=== PATIENT | male | born 1940 | race Caucasian/White ===

== ENCOUNTER → 2017-08-19 08:52 | Outpatient (POV) | payer MEDICARE, OTHER, SELFPAY | PROVIDERS: Visit Provider Dermatology | DX: Z00.00 Encounter for general adult medical examination without abnormal findings (principal) ==

== ENCOUNTER → 2017-10-21 08:34 | Outpatient (POV) | payer MEDICARE, OTHER, SELFPAY | PROVIDERS: Visit Provider Dermatology | DX: Z00.00 Encounter for general adult medical examination without abnormal findings (principal) ==

== ENCOUNTER → 2018-06-06 10:07 | Outpatient (CLI) | payer MEDICARE, OTHER, SELFPAY ==
--- NOTE | 2018-06-06 10:16 | XR_ITS ---
XR chest 2V HISTORY: Cough. Irregular heartbeat. ITS.REASON: COUGH,IRREGULAR HEART BEAT ORDERING PHYSICIAN: Shahid Guthrie PATIENT AGE: 77 years Technique: PA & lateral chest COMPARISON: January 2011. FINDINGS: Lungs well expanded and clear with no active disease.. Christal and mediastinal structures unremarkable. minimal linear scarring and atelectasis toward right CP angle is noted but unimpressive. Heart Is upper normal in size pulmonary vascularity is upper normal. Chest wall T-spine unremarkable. IMPRESSION and lungs clear nothing definitely acute.
== END ==
PROVIDERS: PCP Internal Medicine; Visit Provider Internal Medicine
DX: I49.9 Cardiac arrhythmia, unspecified (principal); R05 Cough; I10 Essential (primary) hypertension
CPT/HCPCS: 71046; 93005

== ENCOUNTER → 2018-11-01 09:22 | Outpatient (POV) | payer MEDICARE, OTHER, SELFPAY | PROVIDERS: Visit Provider Dermatology | DX: Z00.00 Encounter for general adult medical examination without abnormal findings (principal) ==

== ENCOUNTER → 2019-01-17 08:58 | Outpatient (POV) | payer MEDICARE, OTHER, SELFPAY | PROVIDERS: Visit Provider Dermatology | DX: Z00.00 Encounter for general adult medical examination without abnormal findings (principal) ==

== ENCOUNTER → 2019-06-12 15:23 | Outpatient (CLI) | payer MEDICARE, BC, SELFPAY ==
--- NOTE | 2019-06-12 15:37 | MR_ITS ---
PROCEDURE: MR HEAD/BRAIN WO CON CLINICAL INDICATION: BALANCE ISSUES, HEADACHE Headache, staggering imbalance, evaluate COMPARISON: No exams were available for comparison TECHNIQUE: Routine multiplanar multi echo sequences are performed without gadolinium enhancement. FINDINGS: No midline shift, mass effect, intracranial hemorrhage, or hydrocephalus. No evidence of acute infarction. The cerebellopontine angles, cerebellum, and brainstem are unremarkable. There is a prominent cisterna magna as a normal variant. There are a few periventricular and subcortical T2 white matter hyperintensities consistent with ischemic gliotic foci from small vessel disease. Partial empty sella noted as a normal variant. The optic chiasm, corpus callosum, and craniocervical junction have an unremarkable appearance. IMPRESSION: 1. No acute intracranial findings. No evidence of acute infarction. 2. Prominent cisterna magna and partial empty sella as a normal variant Dictated by: Fadi Calvo MD 06/12/2019 19:20 Electronically signed by Fadi Calvo MD in [place] 06/12/2019 19:20
== END ==
PROVIDERS: PCP Internal Medicine; Visit Provider Internal Medicine
DX: R51 Headache (principal); R26.81 Unsteadiness on feet
CPT/HCPCS: 70551

== ENCOUNTER → 2020-03-05 10:16 | Outpatient (POV) | payer MEDICARE, BC, SELFPAY | PROVIDERS: Visit Provider Dermatology | DX: Z00.00 Encounter for general adult medical examination without abnormal findings (principal) ==

== ENCOUNTER → 2021-05-22 09:07 | Outpatient (CLI) | payer MEDICARE, BC, SELFPAY ==
[2021-05-22 09:27] LABS: Basophils # 0.1 K/mm3 (0-0.2); Basophils % 1.2 % (0.1-2.0); Eosinophils # 0.3 K/mm3 (0.0-0.4); Hematocrit 49.7 % (42.0-52.0); Hemoglobin 16.4 g/dL (14.1-18.0); Lymphocytes # 1.9 K/mm3 (0.7-4.5); Lymphocytes % 22.7 % (10-50); Mean Corpuscular HGB Conc 32.9 g/dL (31.8-35.4); Mean Corpuscular Hemoglobin 31.4 pg (27.0-31.2); Mean Corpuscular Volume 95.4 fl (80-94); Mean Platelet Volume 7.8 fl (7.4-10.4); Monocytes # 0.8 K/mm3 (0.1-1.0); Neutrophils # 5.1 K/mm3 (1.8-7.8); Neutrophils % 62.1 % (37.0-80.0); Platelet Count 317 K/mm3 (142-424); Red Blood Count 5.21 M/mm3 (4.60-6.20); Red Cell Distribution Width 15.5 % (11.5-17.5); White Blood Count 8.3 K/mm3 (4.8-10.8)
[2021-05-22 09:57] LABS: Erythrocyte Sedimentation Rate 6 mm/hr (0-20)
[2021-05-22 10:27] LABS: Alanine Aminotransferase 43 U/L (12-78); Albumin Level 4.3 g/dl (3.5-5.0); Albumin/Globulin Ratio 1.6 (1.1-1.8); Alkaline Phosphatase 74 U/L (38-126); Aspartate Amino Transferase 36 U/L (17-59); Bilirubin,Total 0.3 mg/dl (0.2-1.3); Blood Urea Nitrogen 12 mg/dl (9-20); Calcium 8.9 mg/dl (8.4-10.2); Carbon Dioxide 31 mmol/L (22.0-30.0); Chloride 101 mmol/L (98-107); Estimated Glomerular Filt Rate 130 ml/min (>60); GFR (African American) 158 ML/MIN (>60); Globulin 2.7 g/dL (1.3-3.2); Glucose 131 mg/dl (74-100); Sodium 140 mmol/L (136-145)
[2021-05-22 10:33] LABS: C-Reactive Protein 5.3 mg/L (0-4)
== END ==
PROVIDERS: Visit Provider Nurse Practitioner Family
DX: M05.79 Rheumatoid arthritis with rheumatoid factor of multiple sites without organ or systems involvement (principal); E11.9 Type 2 diabetes mellitus without complications; Z79.1 Long term (current) use of non-steroidal anti-inflammatories (NSAID); Z79.899 Other long term (current) drug therapy
CPT/HCPCS: 36415; 80053; 85025; 85651; 86140

== ENCOUNTER → 2021-07-15 15:53 | Outpatient (POV) | payer MEDICARE, BC, SELFPAY | PROVIDERS: Visit Provider Dermatology | DX: Z00.00 Encounter for general adult medical examination without abnormal findings (principal) ==

== ENCOUNTER → 2021-07-23 13:08 | Outpatient (CLI) | payer MEDICARE, BC, SELFPAY ==
[2021-07-23 13:33] LABS: Basophils # 0.1 K/mm3 (0-0.2); Basophils % 1.1 % (0.1-2.0); Eosinophils # 0.2 K/mm3 (0.0-0.4); Eosinophils % 2.6 % (0.1-12.0); Hematocrit 50.5 % (42.0-52.0); Hemoglobin 16.3 g/dL (14.1-18.0); Lymphocytes # 1.6 K/mm3 (0.7-4.5); Lymphocytes % 17.1 % (10-50); Mean Corpuscular HGB Conc 32.2 g/dL (31.8-35.4); Mean Corpuscular Hemoglobin 30.8 pg (27.0-31.2); Mean Corpuscular Volume 95.7 fl (80-94); Mean Platelet Volume 8.1 fl (7.4-10.4); Monocytes # 0.8 K/mm3 (0.1-1.0); Monocytes % 8.3 % (1.7-9.3); Neutrophils # 6.5 K/mm3 (1.8-7.8); Neutrophils % 70.9 % (37.0-80.0); Platelet Count 415 K/mm3 (142-424); Red Blood Count 5.28 M/mm3 (4.60-6.20); Red Cell Distribution Width 15.8 % (11.5-17.5); White Blood Count 9.1 K/mm3 (4.8-10.8)
[2021-07-23 14:07] LABS: Erythrocyte Sedimentation Rate 7 mm/hr (0-20)
[2021-07-23 14:26] LABS: Chloride 104 mmol/L (98-107); Potassium 3.7 mmoL/L (3.5-5.1); Sodium 140 mmol/L (136-145)
[2021-07-23 14:28] LABS: Alanine Aminotransferase 71 U/L (12-78); Alkaline Phosphatase 64 U/L (38-126); Aspartate Amino Transferase 59 U/L (17-59); Bilirubin,Total 0.3 mg/dl (0.2-1.3); Blood Urea Nitrogen 18 mg/dl (9-20); Estimated Glomerular Filt Rate 93 ml/min (>60); GFR (African American) 113 ML/MIN (>60)
[2021-07-23 14:29] LABS: Albumin Level 4.2 g/dl (3.5-5.0); Albumin/Globulin Ratio 1.6 (1.1-1.8); Anion Gap 10.7 mEq/L (5-15); Carbon Dioxide 29 mmol/L (22.0-30.0); Globulin 2.6 g/dL (1.3-3.2); Glucose 145 mg/dl (74-100); Total Protein,Serum 6.8 g/dl (6.3-8.2)
[2021-07-23 14:35] LABS: C-Reactive Protein 5.7 mg/L (0-4)
== END ==
PROVIDERS: Visit Provider Nurse Practitioner Family
DX: E11.9 Type 2 diabetes mellitus without complications (principal); M05.79 Rheumatoid arthritis with rheumatoid factor of multiple sites without organ or systems involvement; Z79.1 Long term (current) use of non-steroidal anti-inflammatories (NSAID); Z79.899 Other long term (current) drug therapy
CPT/HCPCS: 36415; 80053; 85025; 85651; 86140

== ENCOUNTER → 2021-09-15 10:27 | Outpatient (CLI) | payer MEDICARE, BC, SELFPAY ==
--- NOTE | 2021-09-15 | ECG_ITS ---
APPROVED REPORT Exam: Resting ECG HR:70 bpm ECG Measurements Heart Rate 70 AXES PA 183 P 46 QRSd 114 QRS -17 QT 415 T 55 QTc 436 Conclusion SINUS RHYTHM WITH OCCASIONAL SUPRAVENTRICULAR PREMATURE COMPLEXES MODERATE INTRAVENTRICULAR CONDUCTION DELAY [110+ ms QRS DURATION] BORDERLINE ECG Electronically signed by : Shahid Guthrie MD 09/23/2021 17:17:35
== END ==
PROVIDERS: PCP Internal Medicine; Visit Provider Internal Medicine
DX: I49.9 Cardiac arrhythmia, unspecified (principal)
CPT/HCPCS: 93005

== ENCOUNTER → 2021-09-24 15:01 | Outpatient (CLI) | payer MEDICARE, BC, SELFPAY ==
[2021-09-24 15:20] LABS: Basophils # 0.1 K/mm3 (0-0.2); Eosinophils # 0.3 K/mm3 (0.0-0.4); Eosinophils % 3.8 % (0.1-12.0); Hematocrit 48.8 % (42.0-52.0); Hemoglobin 15.9 g/dL (14.1-18.0); Lymphocytes # 1.5 K/mm3 (0.7-4.5); Lymphocytes % 18.6 % (10-50); Mean Corpuscular HGB Conc 32.5 g/dL (31.8-35.4); Mean Corpuscular Hemoglobin 31.1 pg (27.0-31.2); Mean Corpuscular Volume 95.5 fl (80-94); Mean Platelet Volume 8.5 fl (7.4-10.4); Monocytes # 0.7 K/mm3 (0.1-1.0); Monocytes % 8.5 % (1.7-9.3); Neutrophils # 5.5 K/mm3 (1.8-7.8); Platelet Count 401 K/mm3 (142-424); Red Blood Count 5.12 M/mm3 (4.60-6.20); Red Cell Distribution Width 15.7 % (11.5-17.5)
[2021-09-24 16:01] LABS: Alanine Aminotransferase 75 U/L (12-78); Albumin Level 4.3 g/dl (3.5-5.0); Albumin/Globulin Ratio 1.7 (1.1-1.8); Alkaline Phosphatase 60 U/L (38-126); Anion Gap 14.3 mEq/L (5-15); Aspartate Amino Transferase 68 U/L (17-59); Bilirubin,Total 0.4 mg/dl (0.2-1.3); Blood Urea Nitrogen 21 mg/dl (9-20); Calcium 8.8 mg/dl (8.4-10.2); Carbon Dioxide 28 mmol/L (22.0-30.0); Chloride 101 mmol/L (98-107); Estimated Glomerular Filt Rate 109 ml/min (>60); GFR (African American) 132 ML/MIN (>60); Globulin 2.6 g/dL (1.3-3.2); Glucose 177 mg/dl (74-100); Potassium 4.3 mmoL/L (3.5-5.1); Sodium 139 mmol/L (136-145); Total Protein,Serum 6.9 g/dl (6.3-8.2)
[2021-09-24 16:06] LABS: C-Reactive Protein 5.3 mg/L (0-4)
[2021-09-24 18:06] LABS: Erythrocyte Sedimentation Rate 10 mm/hr (0-20)
== END ==
PROVIDERS: Visit Provider Nurse Practitioner Family
DX: M05.79 Rheumatoid arthritis with rheumatoid factor of multiple sites without organ or systems involvement (principal); Z79.1 Long term (current) use of non-steroidal anti-inflammatories (NSAID); Z79.899 Other long term (current) drug therapy
CPT/HCPCS: 36415; 80053; 85025; 85651; 86140

== ENCOUNTER → 2021-12-08 09:29 | Outpatient (CLI) | payer MEDICARE, BC, SELFPAY ==
[2021-12-08 09:47] LABS: Basophils # 0.1 K/mm3 (0-0.2); Basophils % 1.3 % (0.1-2.0); Eosinophils # 0.4 K/mm3 (0.0-0.4); Eosinophils % 4.5 % (0.1-12.0); Hematocrit 48.3 % (42.0-52.0); Hemoglobin 16.1 g/dL (14.1-18.0); Lymphocytes # 1.4 K/mm3 (0.7-4.5); Lymphocytes % 16.9 % (10-50); Mean Corpuscular HGB Conc 33.3 g/dL (31.8-35.4); Mean Corpuscular Hemoglobin 31.5 pg (27.0-31.2); Mean Corpuscular Volume 94.5 fl (80-94); Mean Platelet Volume 8.4 fl (7.4-10.4); Monocytes # 0.8 K/mm3 (0.1-1.0); Monocytes % 9.2 % (1.7-9.3); Neutrophils # 5.7 K/mm3 (1.8-7.8); Neutrophils % 68.1 % (37.0-80.0); Platelet Count 342 K/mm3 (142-424); Red Blood Count 5.12 M/mm3 (4.60-6.20); Red Cell Distribution Width 16.6 % (11.5-17.5); White Blood Count 8.4 K/mm3 (4.8-10.8)
[2021-12-08 10:11] LABS: Erythrocyte Sedimentation Rate 15 mm/hr (0-20)
[2021-12-08 10:26] LABS: Chloride 103 mmol/L (98-107); Potassium 3.9 mmoL/L (3.5-5.1); Sodium 139 mmol/L (136-145)
[2021-12-08 10:28] LABS: Alanine Aminotransferase 39 U/L (12-78); Blood Urea Nitrogen 15 mg/dl (9-20); Estimated Glomerular Filt Rate 109 ml/min (>60); GFR (African American) 132 ML/MIN (>60)
[2021-12-08 10:29] LABS: Albumin Level 4.2 g/dl (3.5-5.0); Albumin/Globulin Ratio 1.6 (1.1-1.8); Alkaline Phosphatase 70 U/L (38-126); Anion Gap 8.9 mEq/L (5-15); Aspartate Amino Transferase 31 U/L (17-59); Bilirubin,Total 0.4 mg/dl (0.2-1.3); Calcium 9.3 mg/dl (8.4-10.2); Carbon Dioxide 31 mmol/L (22.0-30.0); Globulin 2.6 g/dL (1.3-3.2); Glucose 144 mg/dl (74-100); Total Protein,Serum 6.8 g/dl (6.3-8.2)
[2021-12-08 10:35] LABS: C-Reactive Protein 6.5 mg/L (0-4)
== END ==
PROVIDERS: PCP Internal Medicine; Visit Provider Internal Medicine
DX: M05.79 Rheumatoid arthritis with rheumatoid factor of multiple sites without organ or systems involvement (principal); Z79.1 Long term (current) use of non-steroidal anti-inflammatories (NSAID); Z79.899 Other long term (current) drug therapy
CPT/HCPCS: 36415; 80053; 85025; 85651; 86140

== ENCOUNTER → 2022-02-06 08:41 | Outpatient (CLI) | payer MEDICARE, BC, SELFPAY ==
[2022-02-06 09:15] LABS: Basophils # 0.1 K/mm3 (0-0.2); Basophils % 1.1 % (0.1-2.0); Eosinophils # 0.4 K/mm3 (0.0-0.4); Eosinophils % 4.5 % (0.1-12.0); Hematocrit 46.7 % (42.0-52.0); Hemoglobin 15.8 g/dL (14.1-18.0); Lymphocytes # 1.7 K/mm3 (0.7-4.5); Lymphocytes % 21.5 % (10-50); Mean Corpuscular HGB Conc 33.7 g/dL (31.8-35.4); Mean Corpuscular Volume 91.8 fl (80-94); Mean Platelet Volume 8.2 fl (7.4-10.4); Monocytes # 0.8 K/mm3 (0.1-1.0); Monocytes % 10.4 % (1.7-9.3); Neutrophils # 5.1 K/mm3 (1.8-7.8); Neutrophils % 62.5 % (37.0-80.0); Platelet Count 314 K/mm3 (142-424); Red Blood Count 5.09 M/mm3 (4.60-6.20); Red Cell Distribution Width 15.5 % (11.5-17.5); White Blood Count 8.1 K/mm3 (4.8-10.8)
[2022-02-06 09:55] LABS: Erythrocyte Sedimentation Rate 4 mm/hr (0-20)
[2022-02-06 10:05] LABS: Alanine Aminotransferase 22 U/L (12-78); Albumin Level 3.9 g/dl (3.5-5.0); Albumin/Globulin Ratio 1.4 (1.1-1.8); Alkaline Phosphatase 72 U/L (38-126); Aspartate Amino Transferase 22 U/L (17-59); Blood Urea Nitrogen 11 mg/dl (9-20); Calcium 8.9 mg/dl (8.4-10.2); Carbon Dioxide 28 mmol/L (22.0-30.0); Chloride 102 mmol/L (98-107); Estimated Glomerular Filt Rate 109 ml/min (>60); GFR (African American) 132 ML/MIN (>60); Globulin 2.8 g/dL (1.3-3.2); Glucose 146 mg/dl (74-100); Sodium 139 mmol/L (136-145); Total Protein,Serum 6.7 g/dl (6.3-8.2)
[2022-02-06 10:07] LABS: Bilirubin,Total < 0.1 mg/dl (0.2-1.3)
[2022-02-06 10:10] LABS: C-Reactive Protein 5.1 mg/L (0-4)
== END ==
PROVIDERS: PCP Internal Medicine; Visit Provider Internal Medicine
DX: M05.79 Rheumatoid arthritis with rheumatoid factor of multiple sites without organ or systems involvement (principal); Z79.1 Long term (current) use of non-steroidal anti-inflammatories (NSAID); Z79.899 Other long term (current) drug therapy
CPT/HCPCS: 36415; 80053; 85025; 85651; 86140

== ENCOUNTER → 2022-03-03 10:18 | Outpatient (POV) | payer MEDICARE, BC, SELFPAY | PROVIDERS: Visit Provider Dermatology | DX: Z00.00 Encounter for general adult medical examination without abnormal findings (principal) ==

== ENCOUNTER → 2022-03-16 13:27 | Outpatient (CLI) | payer MEDICARE, BC, SELFPAY ==
[2022-03-16 14:12] LABS: Creatinine,Urine Random 78 mg/dL (Not Estab.)
[2022-03-16 14:15] LABS: Microalbumin/Creatinine Ratio 173.3
[2022-03-16 14:37] LABS: Hemoglobin A1C 6.6 % (4.0-6.0)
[2022-03-16 16:13] LABS: Alanine Aminotransferase 24 U/L (12-78); Albumin Level 3.8 g/dl (3.5-5.0); Albumin/Globulin Ratio 1.4 (1.1-1.8); Alkaline Phosphatase 82 U/L (38-126); Aspartate Amino Transferase 27 U/L (17-59); Blood Urea Nitrogen 14 mg/dl (9-20); Calcium 8.6 mg/dl (8.4-10.2); Carbon Dioxide 27 mmol/L (22.0-30.0); Chloride 103 mmol/L (98-107); Chol/HDL Ratio 3.4 (1-3.5); Cholesterol 175 mg/dl (140-200); Estimated Glomerular Filt Rate 109 ml/min (>60); GFR (African American) 132 ML/MIN (>60); Globulin 2.8 g/dL (1.3-3.2); Glucose 135 mg/dl (74-100); HDL Cholesterol 52 mg/dl (40-60); Sodium 138 mmol/L (136-145); Total Protein,Serum 6.6 g/dl (6.3-8.2); Triglycerides 90 mg/dl (30-150); VLDL Cholesterol 18 mg/dL (0-40)
[2022-03-16 16:24] LABS: Bilirubin,Total < 0.1 mg/dl (0.2-1.3)
[2022-03-16 16:43] LABS: Prostate Specific Ag Screen 0.3 ng/ml (0.0-4.0)
[2022-03-16 19:01] LABS: Anion Gap 11.7 mEq/L (5-15); Potassium 3.7 mmoL/L (3.5-5.1)
[2022-03-21 07:59] LABS: Direct LDL Cholesterol 93 mg/dL (100-129)
== END ==
PROVIDERS: PCP Internal Medicine; Visit Provider Internal Medicine
DX: E11.42 Type 2 diabetes mellitus with diabetic polyneuropathy (principal); E78.5 Hyperlipidemia, unspecified; I10 Essential (primary) hypertension; M05.79 Rheumatoid arthritis with rheumatoid factor of multiple sites without organ or systems involvement; Z12.5 Encounter for screening for malignant neoplasm of prostate
CPT/HCPCS: 80053; 80061; 82043; 82570; 83036; G0103

== ENCOUNTER → 2022-04-06 09:54 | Outpatient (CLI) | payer MEDICARE, BC, SELFPAY ==
[2022-04-06 10:39] LABS: Basophils # 0.1 K/mm3 (0-0.2); Basophils % 0.9 % (0.1-2.0); Eosinophils # 0.3 K/mm3 (0.0-0.4); Eosinophils % 3.1 % (0.1-12.0); Hematocrit 47.7 % (42.0-52.0); Hemoglobin 15.5 g/dL (14.1-18.0); Lymphocytes # 1.7 K/mm3 (0.7-4.5); Lymphocytes % 19.7 % (10-50); Mean Corpuscular HGB Conc 32.4 g/dL (31.8-35.4); Mean Corpuscular Hemoglobin 31.1 pg (27.0-31.2); Mean Corpuscular Volume 95.8 fl (80-94); Mean Platelet Volume 8.4 fl (7.4-10.4); Monocytes # 0.8 K/mm3 (0.1-1.0); Monocytes % 9.6 % (1.7-9.3); Neutrophils # 5.7 K/mm3 (1.8-7.8); Neutrophils % 66.8 % (37.0-80.0); Platelet Count 329 K/mm3 (142-424); Red Blood Count 4.98 M/mm3 (4.60-6.20); White Blood Count 8.5 K/mm3 (4.8-10.8)
[2022-04-06 11:20] LABS: Chloride 102 mmol/L (98-107)
[2022-04-06 11:21] LABS: Potassium 3.8 mmoL/L (3.5-5.1); Sodium 141 mmol/L (136-145)
[2022-04-06 11:23] LABS: Blood Urea Nitrogen 15 mg/dl (9-20); Estimated Glomerular Filt Rate 109 ml/min (>60); GFR (African American) 132 ML/MIN (>60)
[2022-04-06 11:24] LABS: Alanine Aminotransferase 27 U/L (12-78); Albumin Level 4.2 g/dl (3.5-5.0); Albumin/Globulin Ratio 1.5 (1.1-1.8); Alkaline Phosphatase 76 U/L (38-126); Anion Gap 13.8 mEq/L (5-15); Aspartate Amino Transferase 41 U/L (17-59); Bilirubin,Total 0.2 mg/dl (0.2-1.3); Calcium 8.5 mg/dl (8.4-10.2); Carbon Dioxide 29 mmol/L (22.0-30.0); Globulin 2.8 g/dL (1.3-3.2); Glucose 126 mg/dl (74-100)
[2022-04-06 11:30] LABS: C-Reactive Protein 4.6 mg/L (0-4)
[2022-04-06 13:48] LABS: Erythrocyte Sedimentation Rate 9 mm/hr (0-20)
== END ==
PROVIDERS: PCP Internal Medicine; Visit Provider Internal Medicine
DX: M05.79 Rheumatoid arthritis with rheumatoid factor of multiple sites without organ or systems involvement (principal); Z79.1 Long term (current) use of non-steroidal anti-inflammatories (NSAID); Z79.899 Other long term (current) drug therapy
CPT/HCPCS: 36415; 80053; 85025; 85651; 86140

== ENCOUNTER → 2022-04-21 09:35 | Outpatient (POV) | payer MEDICARE, BC, SELFPAY | PROVIDERS: Visit Provider Dermatology | DX: Z00.00 Encounter for general adult medical examination without abnormal findings (principal) ==

== ENCOUNTER → 2022-04-28 09:39 | Outpatient (POV) | payer MEDICARE, BC, SELFPAY | PROVIDERS: Visit Provider Dermatology | DX: Z00.00 Encounter for general adult medical examination without abnormal findings (principal) ==

== ENCOUNTER → 2022-06-08 08:46 | Outpatient (CLI) | payer MEDICARE, BC, SELFPAY ==
[2022-06-08 09:50] LABS: Basophils # 0.1 K/mm3 (0-0.2); Basophils % 1.1 % (0.1-2.0); Eosinophils # 0.3 K/mm3 (0.0-0.4); Eosinophils % 3.5 % (0.1-12.0); Hemoglobin 15.8 g/dL (14.1-18.0); Lymphocytes # 1.8 K/mm3 (0.7-4.5); Lymphocytes % 20.9 % (10-50); Mean Corpuscular HGB Conc 32.9 g/dL (31.8-35.4); Mean Corpuscular Hemoglobin 31.4 pg (27.0-31.2); Mean Corpuscular Volume 95.6 fl (80-94); Mean Platelet Volume 8.6 fl (7.4-10.4); Monocytes # 0.8 K/mm3 (0.1-1.0); Monocytes % 9.5 % (1.7-9.3); Neutrophils # 5.6 K/mm3 (1.8-7.8); Platelet Count 376 K/mm3 (142-424); Red Blood Count 5.02 M/mm3 (4.60-6.20); Red Cell Distribution Width 15.8 % (11.5-17.5); White Blood Count 8.5 K/mm3 (4.8-10.8)
[2022-06-08 10:32] LABS: Erythrocyte Sedimentation Rate 14 mm/hr (0-20)
[2022-06-08 10:50] LABS: Alanine Aminotransferase 22 U/L (12-78); Albumin Level 4.4 g/dl (3.5-5.0); Albumin/Globulin Ratio 1.5 (1.1-1.8); Alkaline Phosphatase 86 U/L (38-126); Anion Gap 13.8 mEq/L (5-15); Aspartate Amino Transferase 23 U/L (17-59); Bilirubin,Total 0.2 mg/dl (0.2-1.3); Blood Urea Nitrogen 18 mg/dl (9-20); Calcium 9.7 mg/dl (8.4-10.2); Carbon Dioxide 33 mmol/L (22.0-30.0); Chloride 98 mmol/L (98-107); Estimated Glomerular Filt Rate 93 ml/min (>60); GFR (African American) 113 ML/MIN (>60); Globulin 2.9 g/dL (1.3-3.2); Glucose 128 mg/dl (74-100); Potassium 3.8 mmoL/L (3.5-5.1); Sodium 141 mmol/L (136-145); Total Protein,Serum 7.3 g/dl (6.3-8.2)
[2022-06-08 10:55] LABS: C-Reactive Protein 4.7 mg/L (0-4)
== END ==
PROVIDERS: PCP Internal Medicine; Visit Provider Nurse Practitioner Family
DX: M05.79 Rheumatoid arthritis with rheumatoid factor of multiple sites without organ or systems involvement (principal); Z79.1 Long term (current) use of non-steroidal anti-inflammatories (NSAID); Z79.899 Other long term (current) drug therapy
CPT/HCPCS: 36415; 80053; 85025; 85651; 86140

== ENCOUNTER → 2022-06-22 13:26 | Outpatient (CLI) | payer MEDICARE, BC, SELFPAY ==
[2022-06-22 16:09] LABS: Hemoglobin A1C 6.5 % (4.0-6.0)
== END ==
PROVIDERS: PCP Internal Medicine; Visit Provider Internal Medicine
DX: E11.42 Type 2 diabetes mellitus with diabetic polyneuropathy (principal); I10 Essential (primary) hypertension
CPT/HCPCS: 83036

== ENCOUNTER → 2022-07-20 11:09 | Outpatient (CLI) | payer MEDICARE, BC, SELFPAY ==
[2022-07-20 11:57] LABS: Basophils # 0.1 K/mm3 (0-0.2); Eosinophils # 0.2 K/mm3 (0.0-0.4); Eosinophils % 3.4 % (0.1-12.0); Hemoglobin 15.7 g/dL (14.1-18.0); Lymphocytes # 1.3 K/mm3 (0.7-4.5); Lymphocytes % 18.5 % (10-50); Mean Corpuscular HGB Conc 32.6 g/dL (31.8-35.4); Mean Corpuscular Hemoglobin 31.1 pg (27.0-31.2); Mean Corpuscular Volume 95.3 fl (80-94); Mean Platelet Volume 8.7 fl (7.4-10.4); Monocytes # 0.6 K/mm3 (0.1-1.0); Monocytes % 9.2 % (1.7-9.3); Neutrophils # 4.6 K/mm3 (1.8-7.8); Neutrophils % 67.9 % (37.0-80.0); Platelet Count 349 K/mm3 (142-424); Red Blood Count 5.04 M/mm3 (4.60-6.20); Red Cell Distribution Width 15.7 % (11.5-17.5); White Blood Count 6.8 K/mm3 (4.8-10.8)
[2022-07-20 13:33] LABS: Chloride 101 mmol/L (98-107); Potassium 3.6 mmoL/L (3.5-5.1); Sodium 141 mmol/L (136-145)
[2022-07-20 13:36] LABS: Alanine Aminotransferase 26 U/L (12-78); Albumin/Globulin Ratio 1.4 (1.1-1.8); Alkaline Phosphatase 70 U/L (38-126); Anion Gap 13.6 mEq/L (5-15); Aspartate Amino Transferase 28 U/L (17-59); Bilirubin,Total 0.4 mg/dl (0.2-1.3); Blood Urea Nitrogen 13 mg/dl (9-20); Carbon Dioxide 30 mmol/L (22.0-30.0); Estimated Glomerular Filt Rate 130 ml/min (>60); GFR (African American) 157 ML/MIN (>60); Globulin 2.8 g/dL (1.3-3.2); Total Protein,Serum 6.8 g/dl (6.3-8.2)
[2022-07-20 13:37] LABS: Calcium 8.7 mg/dl (8.4-10.2); Glucose 132 mg/dl (74-100)
[2022-07-20 13:40] LABS: Erythrocyte Sedimentation Rate 12 mm/hr (0-20)
[2022-07-20 13:41] LABS: C-Reactive Protein 5.5 mg/L (0-4)
== END ==
PROVIDERS: PCP Internal Medicine; Visit Provider Nurse Practitioner Family
DX: M05.79 Rheumatoid arthritis with rheumatoid factor of multiple sites without organ or systems involvement (principal); Z79.1 Long term (current) use of non-steroidal anti-inflammatories (NSAID); Z79.899 Other long term (current) drug therapy
CPT/HCPCS: 36415; 80053; 85025; 85651; 86140

== ENCOUNTER → 2022-09-29 08:32 | Outpatient (POV) | payer MEDICARE, BC, SELFPAY | PROVIDERS: Visit Provider Dermatology | DX: Z00.00 Encounter for general adult medical examination without abnormal findings (principal) ==

== ENCOUNTER → 2022-10-29 10:15 | Outpatient (CLI) | payer MEDICARE, BC, SELFPAY ==
[2022-10-29 11:16] LABS: Basophils # 0.1 K/mm3 (0-0.2); Basophils % 0.6 % (0.1-2.0); Eosinophils # 0.4 K/mm3 (0.0-0.4); Hematocrit 46.2 % (42.0-52.0); Hemoglobin 15.4 g/dL (14.1-18.0); Lymphocytes # 1.7 K/mm3 (0.7-4.5); Lymphocytes % 18.7 % (10-50); Mean Corpuscular HGB Conc 33.4 g/dL (31.8-35.4); Mean Corpuscular Hemoglobin 31.6 pg (27.0-31.2); Mean Corpuscular Volume 94.5 fl (80-94); Mean Platelet Volume 8.5 fl (7.4-10.4); Monocytes # 0.8 K/mm3 (0.1-1.0); Monocytes % 8.9 % (1.7-9.3); Neutrophils % 67.7 % (37.0-80.0); Platelet Count 330 K/mm3 (142-424); Red Blood Count 4.88 M/mm3 (4.60-6.20); Red Cell Distribution Width 15.8 % (11.5-17.5); White Blood Count 8.9 K/mm3 (4.8-10.8)
[2022-10-29 11:32] LABS: Alanine Aminotransferase 29 U/L (12-78); Albumin/Globulin Ratio 1.5 (1.1-1.8); Alkaline Phosphatase 78 U/L (38-126); Anion Gap 9.2 mEq/L (5-15); Aspartate Amino Transferase 26 U/L (17-59); Bilirubin,Total 0.5 mg/dl (0.2-1.3); Blood Urea Nitrogen 13 mg/dl (9-20); Calcium 8.6 mg/dl (8.4-10.2); Carbon Dioxide 29 mmol/L (22.0-30.0); Chloride 100 mmol/L (98-107); Estimated Glomerular Filt Rate 109 ml/min (>60); GFR (African American) 131 ML/MIN (>60); Globulin 2.7 g/dL (1.3-3.2); Glucose 145 mg/dl (74-100); Potassium 3.2 mmoL/L (3.5-5.1); Sodium 135 mmol/L (136-145); Total Protein,Serum 6.7 g/dl (6.3-8.2)
[2022-10-29 11:38] LABS: C-Reactive Protein 7.2 mg/L (0-4)
[2022-10-29 12:24] LABS: Erythrocyte Sedimentation Rate 17 mm/hr (0-20)
== END ==
PROVIDERS: PCP Internal Medicine; Visit Provider Nurse Practitioner Family
DX: M05.79 Rheumatoid arthritis with rheumatoid factor of multiple sites without organ or systems involvement (principal); Z79.899 Other long term (current) drug therapy
CPT/HCPCS: 36415; 80053; 85025; 85651; 86140

== ENCOUNTER → 2023-01-05 08:23 | Outpatient (CLI) | payer MEDICARE, BC, SELFPAY ==
[2023-01-05 08:47] LABS: Basophils % 0.5 % (0.1-2.0); Eosinophils # 0.3 K/mm3 (0.0-0.4); Eosinophils % 4.2 % (0.1-12.0); Hematocrit 46.5 % (42.0-52.0); Hemoglobin 15.6 g/dL (14.1-18.0); Lymphocytes # 1.6 K/mm3 (0.7-4.5); Lymphocytes % 24.2 % (10-50); Mean Corpuscular HGB Conc 33.5 g/dL (31.8-35.4); Mean Corpuscular Volume 92.6 fl (80-94); Monocytes # 0.7 K/mm3 (0.1-1.0); Monocytes % 9.8 % (1.7-9.3); Neutrophils # 4.1 K/mm3 (1.8-7.8); Neutrophils % 61.3 % (37.0-80.0); Platelet Count 338 K/mm3 (142-424); Red Blood Count 5.03 M/mm3 (4.60-6.20); Red Cell Distribution Width 15.7 % (11.5-17.5); White Blood Count 6.7 K/mm3 (4.8-10.8)
[2023-01-05 09:04] LABS: Alanine Aminotransferase 41 U/L (12-78); Albumin Level 3.9 g/dl (3.5-5.0); Albumin/Globulin Ratio 1.5 (1.1-1.8); Alkaline Phosphatase 76 U/L (38-126); Anion Gap 15.3 mEq/L (5-15); Aspartate Amino Transferase 38 U/L (17-59); Bilirubin,Total 0.3 mg/dl (0.2-1.3); Blood Urea Nitrogen 16 mg/dl (9-20); Calcium 8.6 mg/dl (8.4-10.2); Carbon Dioxide 27 mmol/L (22.0-30.0); Chloride 102 mmol/L (98-107); Estimated Glomerular Filt Rate 109 ml/min (>60); GFR (African American) 131 ML/MIN (>60); Globulin 2.6 g/dL (1.3-3.2); Glucose 148 mg/dl (74-100); Potassium 3.3 mmoL/L (3.5-5.1); Sodium 141 mmol/L (136-145); Total Protein,Serum 6.5 g/dl (6.3-8.2)
[2023-01-05 09:10] LABS: C-Reactive Protein 5.7 mg/L (0-4)
[2023-01-05 11:59] LABS: Erythrocyte Sedimentation Rate 12 mm/hr (0-20)
== END ==
PROVIDERS: PCP Internal Medicine; Visit Provider Internal Medicine
DX: M05.79 Rheumatoid arthritis with rheumatoid factor of multiple sites without organ or systems involvement (principal); Z79.1 Long term (current) use of non-steroidal anti-inflammatories (NSAID); Z79.899 Other long term (current) drug therapy
CPT/HCPCS: 36415; 80053; 85025; 85651; 86140

== ENCOUNTER 2023-01-29 11:24 | Observation (INO) | payer MEDICARE, BC, SELFPAY ==
[2023-01-29] VITALS (7 sets, daily range): BP systolic 141–173; BP diastolic 75–100; PULSE 71–91; RESP 17–19; TEMP 36.4–37.3; O2SAT 93–97; BMI 34.2; BMI 34.0
--- NOTE | 2023-01-29 11:29 | CT_ITS ---
FINAL REPORT TECHNIQUE: Thin section axial CT with IV contrast supplemented with multiplanar reconstruction under CT angiogram protocol. 3-D reconstructions were performed. This study was performed with techniques to keep radiation doses as low as reasonably achievable (ALARA). Individualized dose reduction techniques using automated exposure control or adjustment of mA and/or kV according to the patient''s size were employed. CLINICAL HISTORY: stroke FINDINGS: The distal vertebral, basilar and distal internal carotid arteries have an unremarkable appearance. No aneurysm is seen. Major intracranial vessels are patent without significant stenosis. IMPRESSION: No evidence of significant stenosis. Reviewed, Interpreted and Dictated by Grover Maxwell III, MD Transcribed by Ines Reina Authenticated and [facility]
--- NOTE | 2023-01-29 11:29 | CT_ITS ---
FINAL REPORT CLINICAL HISTORY: stroke FINDINGS: Axial images of the head were obtained without contrast. Coronal reformatted images were also obtained. This study was performed with techniques to keep radiation doses as low as reasonably achievable (ALARA). Individualized dose reduction techniques using automated exposure control or adjustment of mA and/or kV according to the patient's size were employed. There is generalized age-appropriate atrophy. Periventricular low-attenuation areas are seen consistent with mild chronic ischemic changes. There is no evidence of intracranial hemorrhage or mass. There is no evidence of acute infarct. There is no evidence of shift of the midline structures. No skull abnormality is seen on the bone window images. IMPRESSION: Atrophy and mild periventricular chronic ischemic changes. No acute intracranial abnormality identified. Reviewed, Interpreted and Dictated by Grover Maxwell III, MD Transcribed by Ines Reina Authenticated and [facility]
--- NOTE | 2023-01-29 11:30 | PC.NURSE ---
rad notified of stroke protocol
--- NOTE | 2023-01-29 11:32 | ECG_ITS ---
APPROVED REPORT Exam: Resting ECG HR:89 bpm ECG Measurements Heart Rate 89 AXES QRSd 105 QRS -19 QT 375 T 29 QTc 422 Conclusion ATRIAL FIBRILLATION MODERATE VOLTAGE CRITERIA FOR LVH, CONSIDER NORMAL VARIANT [MEETS CRITERIA IN ONE OF: R(aVL), S(V1), R(V5), R(V5/V6)+S(V1)] ABNORMAL RHYTHM ECG INTERPRETATION BASED ON A DEFAULT AGE OF 40 YEARS UNCONFIRMED REPORT Electronically signed by : Mynor Phelps MD 01/29/2023 17:14:27
--- NOTE | 2023-01-29 11:40 | CT_ITS ---
FINAL REPORT TECHNIQUE: Thin section axial CT with IV contrast supplemented with multiplanar reconstruction under CT angiogram protocol. This study was performed with techniques to keep radiation doses as low as reasonably achievable (ALARA). Individualized dose reduction techniques using automated exposure control or adjustment of mA and/or kV according to the patient''s size were employed. NASCET criteria was utilized during interpretation. CLINICAL HISTORY: stroke FINDINGS: Aortic arch: Arch shows no significant narrowing. Great vessel origins are widely patent. Right carotid: No significant stenosis is seen of the cervical common or internal carotid artery. There is calcified plaque at the carotid bifurcations bilaterally without significant stenosis. Left carotid: No significant stenosis is seen of the cervical common or internal carotid artery. There is calcified plaque at the carotid bifurcations bilaterally without significant stenosis. Vertebral: The vertebral arteries are codominant. No significant stenosis is present. IMPRESSION: No evidence of significant stenosis. Reviewed, Interpreted and Dictated by Grover Maxwell III, MD Transcribed by Ines Reina Authenticated and [facility]
--- NOTE | 2023-01-29 11:40 | HMH.EDGENADL ---
Discharge Plan Disposition Patient Disposition: Admitted Chief Complaint: Neuro Symptoms/Deficit Clinical Impressions Clinical Impression: Ataxia Discharge ED Provider: Joey Stockton General Adult HPI General Chief complaint: Neuro Symptoms/Deficit Stated complaint: Blurry vision Time Seen by Provider: 01/29/23 11:30 History of Present Illness HPI narrative: 82-year-old male presents with generalized weakness and dizziness for the last 6 days. He has had some nausea left-sided neck stiffness. Dull headache not sudden onset or thunderclap and onset. He has said he has been unsteady on his feet and has had double vision especially when he drives. No fever cough shortness of breath chest pain abdominal pain diarrhea. Does not take any blood thinners currently. He was at Dr. Guthrie's office this morning and sent down for stroke work-up Related Data Allergies Allergy/AdvReac Type Severity Reaction Status Date / Time No Known Drug Allergies Allergy Unknown Unverified 07/06/17 14:22 [facility] Disclaimer: The information contained in this section may have been updated after the patient was seen, as this information can be updated by other users. Social History Smoking Status: Never smoker alcohol intake: never current occupational status: employed Travel in the last 8 weeks: Inside the [place] ROS Obtained: Yes All systems reviewed & no additional complaints except as documented Constitutional Constitutional: Denies fatigue, Denies fever(s) and Denies headache(s) Eyes Eyes: Denies dry eyes ENT Ears, Nose, Mouth, and Throat: Denies headache(s) Cardiovascular Cardiovascular: Denies dyspnea Respiratory Respiratory: Denies dyspnea Gastrointestinal Gastrointestingal: Denies coffee ground emesis Genitourinary Male Genitourinary: Denies flank pain Musculoskeletal Musculoskeletal: Denies joint swelling Integumentary/Breasts Skin/Breast: Denies rash Neurologic Neurologic: Denies headache(s) Endocrine Endocrine: Denies fatigue Hematologic/Lymphatic Henatologic/Lymphatic: Denies easy bleeding Allergic/Immunologic Allergic/Immunologic: Denies urticaria Physical Exam General General appearance: alert and in no apparent distress Eye Eye exam: Present PERRL and EOMI ENT ENT exam: Present normal exam and normal oropharynx Neck Neck exam: Present normal inspection Chest Chest inspection: Present symmetric chest wall rise Respiratory Respiratory exam: Present normal lung sounds bilaterally; Absent respiratory distress Cardiovascular Cardiovascular exam: Present regular rate and normal rhythm Abdominal Exam Abdominal exam: Present soft; Absent distention, tenderness, guarding, rebound, Chowdary's sign or tenderness at McBurney's Point Rectal Exam Rectal exam: Present deferred Back Exam Back exam: Present normal inspection Neurological Exam Neurological exam: Present alert, oriented X3 and other (Disconjugate gaze on looking to the left); Absent motor sensory deficit Psychiatric Psychiatric exam: Present normal affect and normal mood Skin Skin exam: Present warm, dry and intact Lymphatic Lymphatic Findings: no adenopathy Medical Decision Making Medical Records Medical records reviewed: Yes I reviewed the patient's medical records. Main Inquiry Pt receiving controlled substance: No Main was queried for this patient: No Vital Signs: 01/29/23 11:27 Temperature 97.5 F L Temperature Source Oral Pulse Rate [Left Radial] 84 Respiratory Rate 17 Blood Pressure [Right Arm] 173/100 H Blood Pressure Mean [Right Arm] 124 Blood Pressure Source [Right Arm] Automatic Cuff Blood Pressure Position [Right Arm] Sitting 02 Sat by Pulse Oximetry 96 Oxygen Delivery Method Room Air Lab Data Lab Results 01/29/23 11:30: WBC 12.9 H, RBC 5.12, Hgb 15.5, Hct 48.6, MCV 94.9 H, MCH 30.4, MCHC 32.0, RDW 15.3, Plt Count 492 H, MPV 7.7, Neut % (Auto) 80.5 H, Lymph % (Auto) 7.6 L, [place] % (Auto) 8.9, Eos % (A
[2023-01-29 11:42] LABS: Basophils % 0.3 % (0.1-2.0); Eosinophils # 0.4 K/mm3 (0.0-0.4); Eosinophils % 2.7 % (0.1-12.0); Hematocrit 48.6 % (42.0-52.0); Hemoglobin 15.5 g/dL (14.1-18.0); Lymphocytes % 7.6 % (10-50); Mean Corpuscular Hemoglobin 30.4 pg (27.0-31.2); Mean Corpuscular Volume 94.9 fl (80-94); Mean Platelet Volume 7.7 fl (7.4-10.4); Monocytes # 1.2 K/mm3 (0.1-1.0); Monocytes % 8.9 % (1.7-9.3); Neutrophils # 10.4 K/mm3 (1.8-7.8); Neutrophils % 80.5 % (37.0-80.0); Platelet Count 492 K/mm3 (142-424); Red Blood Count 5.12 M/mm3 (4.60-6.20); Red Cell Distribution Width 15.3 % (11.5-17.5); White Blood Count 12.9 K/mm3 (4.8-10.8)
--- NOTE | 2023-01-29 11:47 | PC.NURSE ---
pt return from CT
[2023-01-29 11:59] LABS: Alanine Aminotransferase 36 U/L (12-78); Albumin/Globulin Ratio 1.1 (1.1-1.8); Alkaline Phosphatase 98 U/L (38-126); Anion Gap 10.1 mEq/L (5-15); Aspartate Amino Transferase 26 U/L (17-59); Bilirubin,Total 0.5 mg/dl (0.2-1.3); Blood Urea Nitrogen 13 mg/dl (9-20); Carbon Dioxide 31 mmol/L (22.0-30.0); Chloride 99 mmol/L (98-107); Estimated Glomerular Filt Rate 109 ml/min (>60); GFR (African American) 131 ML/MIN (>60); Globulin 3.5 g/dL (1.3-3.2); Glucose 162 mg/dl (74-100); Magnesium 2.1 mg/dl (1.6-2.3); Potassium 4.1 mmoL/L (3.5-5.1); Sodium 136 mmol/L (136-145); Total Protein,Serum 7.5 g/dl (6.3-8.2)
--- NOTE | 2023-01-29 12:14 | PC.NURSE ---
patient offered blanket, refused. call light within reach no needs at this time
[2023-01-29 12:20] LABS: Troponin I < 0.01 ng/ml (0.00-0.034)
--- NOTE | 2023-01-29 12:34 | PC.NURSE ---
notified care management of admission, spoke with imani
[2023-01-29 12:42] LABS: Coronavirus 19, PCR Not Detected (NotDetected); Influenza A, PCR Not Detected (NotDetected); Influenza B, PCR Not Detected (NotDetected)
--- NOTE | 2023-01-29 12:46 | MR_ITS ---
FINAL REPORT CLINICAL HISTORY: cva COMPARISON: 06/12/2019 this FINDINGS: Multiplanar MR imaging of the brain was performed without contrast. There is no evidence of intracranial hemorrhage or mass. There is age-appropriate atrophy. There are mild chronic ischemic changes. The ventricular size is normal. There is no evidence of shift of the midline structures. No area of restricted diffusion is identified. The posterior fossa and brainstem have an unremarkable appearance. Normal major vessel vascular flow voids are seen. IMPRESSION: Chronic changes. No acute intracranial abnormality. Reviewed, Interpreted and Dictated by Grover Maxwell III, MD Transcribed by Ada Neville Authenticated and [facility]
--- NOTE | 2023-01-29 12:57 | PC.NURSE ---
patient assisted to BR
--- NOTE | 2023-01-29 13:07 | HMH.PHAINT1 ---
Pharmacy Intervention Comments: MEDICATION RECONCILIATION COMPLETED ON PATIENT USING EXTERNAL FILL HISTORY FROM PHARMACY. -RICO DIXON, ROSANNED
[2023-01-29 15:31] LABS: Troponin I < 0.01 ng/ml (0.00-0.034)
--- NOTE | 2023-01-29 17:23 | EXP.HP ---
History of Present Illness *Admission Date: 01/29/23 *Reason for visit:: visual disturbance *History of present illness: Mr. Bower is an 82 year old male with a past medical history of melanoma s/p mohs a few days ago, another type of skin cancer that is less bad, type 2 diabetes mellitus, hypertension, hyperlipidemia and asthma. He presented to the ED with 2 days of double vision, seeing images side by side. He states his vision normalizes when he shuts either his left or his right eye. This has persisted over the past two days. Over the past couple of days he's also had a mild left sided headache and has felt unstable when he walks. Over the past week he has felt weak, has had night sweats and reduced appetite. He denies unilateral numbness/tingling/weakness, fever, chest pain, abdominal pain, shortness of breath, cough, diarrhea and dysuria. [facility] Disclaimer: The information contained in this section may have been updated after the patient was seen, as this information can be updated by other users. Social History (Updated 01/29/23 @ 12:42 by Joey Stockton MD) Smoking Status: Never smoker alcohol intake: never current occupational status: employed Travel in the last 8 weeks: Inside the [place] Review of Systems Constitutional Constitutional: Reports headache(s) and Reports night sweats Eyes Eyes: Reports diplopia ENT Ears, Nose, Mouth, and Throat: Reports headache(s) *Neurologic Neurologic: Reports headache(s) Meds Home Medications and Allergies Home Medications Medication Instructions Recorded Confirmed Type amlodipine 10 mg tablet 10 mg PO DAILY Hypertension 01/29/23 01/29/23 History diclofenac sodium 75 mg 75 mg PO DAILY Pain 01/29/23 01/29/23 History tablet,delayed release empagliflozin 25 mg-linagliptin 5 1 tab PO DAILY Diabetes 01/29/23 01/29/23 History mg tablet (Glyxambi) enalapril 10 1 tab PO DAILY Hypertension 01/29/23 01/29/23 History mg-hydrochlorothiazide 25 mg tablet folic acid 1 mg tablet 1 mg PO DAILY Supplement 01/29/23 01/29/23 History methotrexate sodium 2.5 mg tablet 20 mg PO WEEKLY Rheumatoid 01/29/23 01/29/23 History Arthritis potassium chloride 20 mEq 20 meq PO DAILY Supplement 01/29/23 01/29/23 History tablet,extended release(part/cryst) pravastatin 40 mg tablet 40 mg PO DAILY Cholesterol 01/29/23 01/29/23 History prednisone 1 mg tablet 2 mg PO DAILY STEROID 01/29/23 01/29/23 History New Prescriptions to Start Prescriptions: Allergies Allergy/AdvReac Type Severity Reaction Status Date / Time No Known Drug Allergies Allergy Unknown Verified 01/29/23 13:29 Exam Data for Last 24 hours Vital signs and Labs for Last 24 Hours: Temp Pulse Resp BP Pulse Ox O2 Del Method 98.1 F 82 18 146/82 H 95 Room Air 01/29/23 16:00 01/29/23 16:00 01/29/23 16:00 01/29/23 16:00 01/29/23 16:00 01/29/23 16:00 Laboratory Results - last 24 hr 01/29/23 11:30: WBC 12.9 H, RBC 5.12, Hgb 15.5, Hct 48.6, MCV 94.9 H, MCH 30.4, MCHC 32.0, RDW 15.3, Plt Count 492 H, MPV 7.7, Neut % (Auto) 80.5 H, Lymph % (Auto) 7.6 L, [place] % (Auto) 8.9, Eos % (Auto) 2.7, Baso % (Auto) 0.3, Neut # (Auto) 10.4 H, Lymph # (Auto) 1.0, [place] # (Auto) 1.2 H, Eos # (Auto) 0.4, Baso # (Auto) 0.0, Sodium 136, Potassium 4.1, Chloride 99, Carbon Dioxide 31 H, Anion Gap 10.1, BUN 13, Creatinine 0.70, Estimated GFR 109, Est GFR ( Amer) 131, Glucose 162 H, Calcium 9.0, Magnesium 2.1, Total Bilirubin 0.5, AST 26, ALT 36, Alkaline Phosphatase 98, Troponin I < 0.01, Total Protein 7.5, Albumin 4.0, Globulin 3.5 H, Albumin/Globulin Ratio 1.1, TSH 1.70 01/29/23 12:36: SARS-CoV-2 (PCR) Not detected, Influenza A Untype (PCR) Not detected, Influenza Type B (PCR) Not detected 01/29/23 14:48: Troponin I < 0.01 I & O for Last 24 hours: Intake & Output 01/26/23 01/27/23 01/28/23 01/29/23 23:59 23:59 23:59 23:59 Weight 107.501 kg Constitutional Constitutional: no acute distress *R
--- NOTE | 2023-01-29 18:42 | PC.NURSE ---
NO ACUTE CHANGES SINCE ARRIVAL TO UNIT. AOX4. ANSWERS QUESTIONS APPROPRIATELY. WEAKNESS WITH AMBULATION.
[2023-01-29 18:57] LABS: Troponin I < 0.01 ng/ml (0.00-0.034)
[2023-01-29 20:17] LABS: POC Glucose,Bedside 141 (70-110)
[2023-01-30] VITALS (10 sets, daily range): BP systolic 130–164; BP diastolic 67–90; PULSE 80–95; RESP 16–20; TEMP 36.7–37.4; O2SAT 93–96; BMI 33.4
--- NOTE | 2023-01-30 03:09 | PC.NURSE ---
PATIENT HAS RESTED WELL. NO C/O PAIN OR DISCOMFORT. HAS WALKED IN THE HURST WAY AND TOLERATED WELL. 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 HAS A SURGICAL WOUND TO THE RIGHT JAW. SAYS THE DOCTOR REMOVED A REYNOSO CANCER
[2023-01-30 05:59] LABS: POC Glucose,Bedside 172 (70-110)
[2023-01-30 07:27] LABS: Basophils % 0.2 % (0.1-2.0); Eosinophils % 2.6 % (0.1-12.0); Lymphocytes # 1.1 K/mm3 (0.7-4.5); Monocytes # 1.3 K/mm3 (0.1-1.0)
[2023-01-30 07:32] LABS: Anion Gap 11.4 mEq/L (5-15); Blood Urea Nitrogen 13 mg/dl (9-20); Calcium 7.9 mg/dl (8.4-10.2); Carbon Dioxide 25 mmol/L (22.0-30.0); Chloride 102 mmol/L (98-107); Creatinine Clearance Estimated 88 mL/min (50-200); Estimated Glomerular Filt Rate 130 ml/min (>60); GFR (African American) 157 ML/MIN (>60); Glucose 134 mg/dl (74-100); Potassium 3.4 mmoL/L (3.5-5.1); Sodium 135 mmol/L (136-145)
[2023-01-30 07:36] LABS: Eosinophils # 0.4 K/mm3 (0.0-0.4); Hematocrit 42.2 % (42.0-52.0); Lymphocytes % 8.3 % (10-50); Mean Corpuscular HGB Conc 32.9 g/dL (31.8-35.4); Mean Corpuscular Hemoglobin 30.7 pg (27.0-31.2); Mean Corpuscular Volume 93.5 fl (80-94); Mean Platelet Volume 8.6 fl (7.4-10.4); Monocytes % 9.4 % (1.7-9.3); Neutrophils # 10.6 K/mm3 (1.8-7.8); Neutrophils % 79.5 % (37.0-80.0); Platelet Count 451 K/mm3 (142-424); Red Blood Count 4.51 M/mm3 (4.60-6.20); Red Cell Distribution Width 15.2 % (11.5-17.5); White Blood Count 13.3 K/mm3 (4.8-10.8)
[2023-01-30 07:38] LABS: Hemoglobin 13.9 g/dL (14.1-18.0)
[2023-01-30 08:08] LABS: Hemoglobin A1C 7.2 % (4.0-6.0)
--- NOTE | 2023-01-30 10:26 | PC.NURSE ---
called and spoke with Fernando for pt order
[2023-01-30 12:40] LABS: C-Reactive Protein 33.3 mg/L (0-4)
--- NOTE | 2023-01-30 13:41 | HMH.PTEV ---
Physical Therapy Evaluation Rehab PT IP Evaluation Start: 01/30/23 08:23 Freq: ONCE Status: Active Protocol: Document 01/30/23 13:28 SANTHOSH (Rec: 01/30/23 13:41 SANTHOSH [id number]) Subjective/History History History Patient is an 82 year old male admitted to [facility] 01/29/23 secondary to diplopia. Patient reports that he was practicing golf when he looked down and saw 2 golf balls instead of one. Main complaint at this time is diplopia with far sighted objects. Patient reports that he lives at home alone in fully handicapped accessible home. Patient reports that he was previously independent with all ADL's/IADL's. Patient denies any falls or tripping hazards within the house. Most recent brain MRI results indicate no intracranial abnormality. Subjective Subjective I feel fine. I just see double when I look far away. I can read a book with no problems. Rehab PT IP Eval Objective Appearance Patient Behavior Appropriate,Cooperative Patient Orientation Person,Place,Day of Month,Year ,Patient Baseline Difficulty following instructions none Speech Pattern Clear,Appropriate Ambulation Patient Able to Ambulate Yes Ambulation Observation IP General Gait Pattern Observation Decrease Stride Lngth (R), Decrease Stride Lngth (L) Ambulation Distance (feet) 100 Ambulation Assistive Device Rolling Walker Ambulation Ability Independent Balance Ability to Arise Able, w/o using arms Sitting Balance Steady, safe Standing Balance Narrow stance w/o support Dynamic Sitting Balance Ability Normal Dynamic Standing Balance Ability Normal Transfers Bed Transfer Ability Independent Chair Transfer Ability Independent Sit to Stand Chair Transfer Ability Independent ROM All Extremities PT ROM Status WFL MMT All Extremities PT MMT WFL Rehab PT IP prob,goals,plan Problems Date of Evaluation: 01/29/23 PT IP Problems Other Other Pt Problem diplopi
[2023-01-30 15:16] LABS: Erythrocyte Sedimentation Rate 28 mm/hr (0-20)
--- NOTE | 2023-01-30 16:48 | PC.NURSE ---
PT HAS AMBULATED IN HALLWAY MULTIPLE TIMES THIS SHIFT AND TOLERATED WELL. DID HAVE TO USE ASSISTANCE OF HAND RAIL A COUPLE TIMES BUT OTHERWISE AMBULATED INDEPENDENTLY. STILL HAVING VISUAL DISTURBANCES WITH DISTANT OBJECTS. TOLERATING DIET WELL. AFIB ON TELE. ROOM AIR
--- NOTE | 2023-01-30 17:17 | EXP.DC.SUM ---
General Admission date:: 01/29/23 Discharge date: 01/30/23 HPI HPI HPI: Mr. Bower is an 82 year old male with a past medical history of melanoma s/p mohs procedure on the right cheek few days ago, another type of skin cancer that is less bad, type 2 diabetes mellitus, hypertension, hyperlipidemia and asthma. He presented to the ED with 2 days of double vision, seeing images side by side. He was admitted for CVA workup Hospital Course Hospital Course Hospital Course: 82-year-old male with history of diabetes, hypertension, melanoma multiple times with active follow-up from dermatology and recent melanoma removal procedure from right cheek, presented with complaints of double vision. His stroke work-up including CT head, CTA head and neck and MRI brain did not reveal any acute stroke. His double vision is only with distant vision and not with near vision. His other neurological exam remains unremarkable. Given that he was complaining of headache it resolved. No temporal artery tenderness noted. His ESR was 28 and suspicion for temporal arteritis less likely. There is concern for left-sided trigeminal neuralgia given his prior history of surgeries on the face for skin cancer removal. Patient currently being discharged in stable condition to follow-up with primary, neurology and ophthalmology as outpatient for further evaluation of his distorted distant vision Exam Data for Last 24 hours Vital signs and Labs for Last 24 Hours: Temp Pulse Resp BP Pulse Ox O2 Del Method 98.2 F 90 18 164/76 H 96 Room Air 01/30/23 15:03 01/30/23 16:00 01/30/23 15:03 01/30/23 15:03 01/30/23 15:03 01/30/23 17:00 Laboratory Results - last 24 hr 01/29/23 17:30: Troponin I < 0.01 01/29/23 19:58: POC Glucose 141 H 01/30/23 05:49: POC Glucose 172 H 01/30/23 06:35: WBC 13.3 H, RBC 4.51 L, Hgb 13.9 L D, Hct 42.2, MCV 93.5, MCH 30.7, MCHC 32.9, RDW 15.2, Plt Count 451 H, MPV 8.6, Neut % (Auto) 79.5, Lymph % (Auto) 8.3 L, [place] % (Auto) 9.4 H, Eos % (Auto) 2.6, Baso % (Auto) 0.2, Neut # (Auto) 10.6 H, Lymph # (Auto) 1.1, [place] # (Auto) 1.3 H, Eos # (Auto) 0.4, Baso # (Auto) 0.0, Sodium 135 L, Potassium 3.4 L, Chloride 102, Carbon Dioxide 25, Anion Gap 11.4, BUN 13, Creatinine 0.60 L, Estimated Creat Clear 88, Estimated GFR 130, Est GFR ( Amer) 157, Glucose 134 H, Hemoglobin A1c 7.2 H, Calcium 7.9 L, C-Reactive Protein 33.3 H 01/30/23 14:24: ESR 28 H I & O for Last 24 hours: Intake & Output 01/27/23 01/28/23 01/29/23 01/30/23 23:59 23:59 23:59 23:59 Intake Total 360 / 600 1200 / 1200 Output Total 1 / 1 0 / 0 Balance 359 / 599 1200 / 1200 Weight 107.501 kg 106.005 kg Constitutional Constitutional: no acute distress and obese *Routine HEENT Exam Head: Present normocephalic and atraumatic Eye: Present EOMI and PERRL *Routine Neck Exam Neck: Present supple Comments: no carotid bruit *Routine Respiratory Exam Respiratory: Present normal respiratory effort, able to speak in complete sentences and symmetric chest movement *Routine Cardiovascular Exam Cardiovascular: Present Normal S1 and Normal S2 *Routine Abdominal Exam Abdominal: Present soft *Routine Extremities Exam Extremities: Present full ROM *Routine Skin Exam Skin: Present erythema, warm, scars and rash Comments: especially on the face and bilateral extremities from prior mohs procedure for melanoma *Routine Neurological Exam Neurological: Present alert, oriented X3, CN II-XII intact, normal reflexes, facial asymmetry (due to recent surgery on the right cheek for melanoma) and normal speech Comments: no nystagmus, sensations intact. gait normal. FNT normal, rapid alternating movements of the hand normal. Deep tendon reflxes of the patella and triceps normal. Routine Psychiatric Exam Psychiatric: Present normal affect, normal thought process, cooperative, good insight and good judgment Results Data Completed and Pending Labs on day of discharge: Labs from last
[2023-01-31 16:38] LABS: POC Glucose,Bedside 116 (70-110)
[2023-01-31 16:38] LABS: POC Glucose,Bedside 127 (70-110)
[2023-02-01 12:10] LABS: Calcium, Ionized 4.6 mg/dL (4.5-5.6)
--- NOTE | 2023-02-01 15:07 | CARE MANAGER ---
Contacted patient related to hospital discharge. He states he is doing well. He went to Dr. Guthrie today and they set him up with cardiology and neurology. He denies any questions or concerns. RAND Connor
== END 2023-01-30 18:00 | disposition home or self-care (01) ==
LOC: ER 12:41 → 2ND 12:47
PROVIDERS: Internal Medicine; Admitting Provider Internal Medicine; Emergency Provider Emergency Medicine; PCP Internal Medicine; Visit Provider Internal Medicine
DX: H53.2 Diplopia (principal); C43.39 Malignant melanoma of other parts of face; I10 Essential (primary) hypertension; E11.9 Type 2 diabetes mellitus without complications; Z79.899 Other long term (current) drug therapy; Z79.84 Long term (current) use of oral hypoglycemic drugs; Z79.01 Long term (current) use of anticoagulants; I48.91 Unspecified atrial fibrillation; E87.6 Hypokalemia
CPT/HCPCS: G0378; 36415; 70450; 70496; 70498; 70551; 80048; 80053; 82330; 82962; 83036; 83735; 84443; 84484; 85025; 85651; 86140; 87636; 93005; 93306; 97163; 99285; Q9967

== ENCOUNTER → 2023-02-02 10:37 | Outpatient (CLI) | payer MEDICARE, BC, SELFPAY | PROVIDERS: PCP Internal Medicine; Visit Provider Nurse Practitioner | DX: I10 Essential (primary) hypertension (principal); I35.8 Other nonrheumatic aortic valve disorders; I48.91 Unspecified atrial fibrillation; I51.89 Other ill-defined heart diseases; R94.31 Abnormal electrocardiogram [ECG] [EKG] | CPT/HCPCS: 93270 ==

== ENCOUNTER 2023-02-03 06:31 | Emergency (ER) | payer MEDICARE, BC, SELFPAY ==
[2023-02-03 06:16] VITALS: BP 196/139; PULSE 72; RESP 22; TEMP 36.6; O2SAT 98; BMI 33.0
--- NOTE | 2023-02-03 06:21 | ECG_ITS ---
APPROVED REPORT Exam: Resting ECG HR:71 bpm ECG Measurements Heart Rate 71 AXES QRSd 116 QRS -19 QT 446 T 4 QTc 469 Conclusion NSR with first degree av block MODERATE INTRAVENTRICULAR CONDUCTION DELAY [110+ ms QRS DURATION] MINIMAL ST DEPRESSION [0.025+ mV ST DEPRESSION] PROLONGED QT INTERVAL ABNORMAL ECG UNCONFIRMED REPORT Electronically signed by : Mynor Phelps MD 02/03/2023 21:16:51
--- NOTE | 2023-02-03 06:24 | XR_ITS ---
FINAL REPORT CLINICAL HISTORY: Shortness of breath COMPARISON: None FINDINGS: A portable view of the chest is obtained. An electrical device is projected over the left chest. The heart is normal in size. There are low lung volumes. Bibasilar opacities are favored to represent atelectasis. Pneumonia is not excluded. There is no pleural effusion or pneumothorax. IMPRESSION: Bibasilar opacities favor atelectasis. Pneumonia not excluded. Reviewed, Interpreted and Dictated by Lisa De Leon MD Transcribed by Ada Neville Authenticated and [facility]
[2023-02-03 06:30] VITALS: BP 183/98; PULSE 72; RESP 18; O2SAT 96
[2023-02-03 06:35] LABS: Coronavirus 19, PCR Not Detected (NotDetected); Influenza A, PCR Not Detected (NotDetected); Influenza B, PCR Not Detected (NotDetected)
--- NOTE | 2023-02-03 06:36 | HMH.EDGENADL ---
Discharge Plan Disposition Patient Disposition: Still a Patient Prescriptions Prescriptions: No Action Eliquis 5 mg tablet 5 mg PO BID bisoprolol fumarate 5 mg tablet 5 mg PO QDAY Qty: 30 5RF pravastatin 40 mg tablet 40 mg PO DAILY Patient Comments: TAKE 1 TABLET BY MOUTH ONCE DAILY enalapril-hydrochlorothiazide 10-25 mg tablet 1 tab PO DAILY potassium chloride 20 mEq tablet,ER particles/crystals 20 meq PO DAILY methotrexate sodium 2.5 mg tablet 20 mg PO WEEKLY prednisone 1 mg tablet 2 mg PO DAILY Patient Comments: TAKE 2 TABLETS BY MOUTH ONCE DAILY amlodipine 10 mg tablet 10 mg PO DAILY Patient Comments: TAKE 1 TABLET BY MOUTH ONCE DAILY FOR 90 DAYS diclofenac sodium 75 mg tablet,delayed release (DR/EC) 75 mg PO DAILY folic acid 1 mg tablet 1 mg PO DAILY Patient Comments: TAKE 1 TABLET BY MOUTH ONCE DAILY Glyxambi 25-5 mg tablet 1 tab PO DAILY Patient Comments: TAKE 1 TABLET BY MOUTH ONCE DAILY IN THE MORNING calcium carbonate-vitamin D3 [Oyster Shell Calcium-Vit D3] 500 mg-10 mcg (400 unit) tablet 2 tab PO DAILY Qty: 30 0RF potassium chloride 20 mEq tablet extended release 20 meq PO DAILY Qty: 5 0RF Referrals Follow up/Referrals: Provider,Referral, MD [Referring] - See instructions Clinical Impressions Clinical Impression: Acute dyspnea Discharge ED Provider: Juan Cloud General Adult HPI General Chief complaint: Shortness of Breath/Dyspnea Stated complaint: SOB Time Seen by Provider: 02/03/23 06:31 Mode of Arrival: EMS Source of Information: Patient Limitations: No Limitations Description of Symptoms (Recalled from ER Triage Doc. by RN): pt arrives EMS with c/o SOA, sweating, N/V, lower back pain, pain between his shoulder blades, and a headache on the L side. pt states he was just discharged from being inpatient here. pt states he had a negative work up for a stroke. pt saw [facility] yesterday and is now wearing a halter monitor. pt states he hasn't felt well all night. EMS reports having him on O2 for comfort. pt is 98% on RA History of Present Illness HPI narrative: Is a 89-year-old male with history of hypertension, A-fib on Eliquis, diabetes, hyperlipidemia presenting with shortness of breath. Patient states shortness of breath started a few days ago. He does not remember anything in particular that made the shortness of breath start. Nothing in particular makes it worse other than exerting himself. Associated with cold chills and feeling warm, pain between his shoulder blades that has been going on for over a week, and headache in his left shoulder and left side of face that started prior to the shortness of breath. He also denies any overt chest pain, nausea or vomiting, recent weight loss, neurologic deficits, PND, orthopnea, lower extremity swelling, or any other complaint. Related Data Home Medications Medication Instructions Recorded Confirmed amlodipine 10 mg tablet 10 mg PO DAILY Hypertension 01/29/23 02/02/23 diclofenac sodium 75 mg 75 mg PO DAILY Pain 01/29/23 02/02/23 tablet,delayed release empagliflozin 25 mg-linagliptin 5 1 tab PO DAILY Diabetes 01/29/23 02/02/23 mg tablet (Glyxambi) enalapril 10 1 tab PO DAILY Hypertension 01/29/23 02/02/23 mg-hydrochlorothiazide 25 mg tablet folic acid 1 mg tablet 1 mg PO DAILY Supplement 01/29/23 02/02/23 methotrexate sodium 2.5 mg tablet 20 mg PO WEEKLY Rheumatoid 01/29/23 02/02/23 Arthritis potassium chloride 20 mEq 20 meq PO DAILY Supplement 01/29/23 02/02/23 tablet,extended release(part/cryst) pravastatin 40 mg tablet 40 mg PO DAILY Cholesterol 01/29/23 02/02/23 prednisone 1 mg tablet 2 mg PO DAILY STEROID 01/29/23 02/02/23 apixaban 5 mg tablet (Eliquis) 5 mg PO BID 02/02/23 02/02/23 Previous Rx's Medication Instructions Recorded calcium carbonate 500 mg-vitamin 2 tab PO DAILY #30 tabs 01/30/23 D3 10 mcg (400 u
[2023-02-03 06:44] LABS: VBG Base Excess -2.6 mmol/L (-2.4-2.3); VBG HCO3 23.2 mmol/L (23-30); VBG Oxygen Saturation 71.9 % (50-70); VBG PCO2 43.9 mmol/L (35-51); VBG PH 7.34 mmol/L (7.31-7.41); VBG PO2 38.1 mmol/L (28-40); VBG Total CO2 24.5 mmol/L (23-27)
[2023-02-03 06:46] LABS: Basophils % 0.3 % (0.1-2.0); Eosinophils # 0.1 K/mm3 (0.0-0.4); Eosinophils % 0.6 % (0.1-12.0); Hematocrit 49.4 % (42.0-52.0); Hemoglobin 15.5 g/dL (14.1-18.0); Lymphocytes % 7.1 % (10-50); Mean Corpuscular HGB Conc 31.4 g/dL (31.8-35.4); Mean Corpuscular Hemoglobin 30.1 pg (27.0-31.2); Mean Corpuscular Volume 95.9 fl (80-94); Mean Platelet Volume 7.6 fl (7.4-10.4); Monocytes # 0.8 K/mm3 (0.1-1.0); Monocytes % 5.6 % (1.7-9.3); Neutrophils # 12.1 K/mm3 (1.8-7.8); Neutrophils % 86.4 % (37.0-80.0); Platelet Count 559 K/mm3 (142-424); Red Blood Count 5.16 M/mm3 (4.60-6.20); Red Cell Distribution Width 15.1 % (11.5-17.5)
--- NOTE | 2023-02-03 06:46 | CT_ITS ---
FINAL REPORT TECHNIQUE: Axial imaging of the chest is obtained after the administration of contrast. 3-D MIP reformatted images were also obtained and reviewed per PE protocol. CLINICAL HISTORY: aortic disease, shortness of breath, BP COMPARISON: None FINDINGS: The pulmonary arteries are well filled. There is no evidence of pulmonary embolus. There is no aortic dissection or intimal flap. The heart is borderline in size. There is no mediastinal, hilar, or axillary lymphadenopathy. The lungs are clear. There is no pleural or pericardial effusion. Limited evaluation of the upper abdomen is without acute abnormality. There is a left renal cyst. No acute osseous abnormality. IMPRESSION: No evidence of pulmonary embolism or aortic dissection. Reviewed, Interpreted and Dictated by Lisa De Leon MD Transcribed by Ada Neville Authenticated and [facility]
[2023-02-03 06:47] LABS: MANUAL DIFFERENTIAL MANUAL DIFFERENTIAL (MANUAL DIFF)
[2023-02-03 06:52] LABS: Alanine Aminotransferase 33 U/L (12-78); Albumin Level 4.2 g/dl (3.5-5.0); Albumin/Globulin Ratio 1.2 (1.1-1.8); Alkaline Phosphatase 97 U/L (38-126); Anion Gap 15.7 mEq/L (5-15); Aspartate Amino Transferase 27 U/L (17-59); Bilirubin,Total 0.6 mg/dl (0.2-1.3); Blood Urea Nitrogen 15 mg/dl (9-20); Calcium 8.8 mg/dl (8.4-10.2); Carbon Dioxide 25 mmol/L (22.0-30.0); Chloride 97 mmol/L (98-107); Creatinine Clearance Estimated 87 mL/min (50-200); Estimated Glomerular Filt Rate 109 ml/min (>60); GFR (African American) 131 ML/MIN (>60); Globulin 3.6 g/dL (1.3-3.2); Glucose 143 mg/dl (74-100); Potassium 3.7 mmoL/L (3.5-5.1); Sodium 134 mmol/L (136-145); Total Protein,Serum 7.8 g/dl (6.3-8.2)
[2023-02-03 06:57] LABS: D-Dimer 0.45 ug/mL (0.0-0.5)
[2023-02-03 07:00] VITALS: BP 173/90; RESP 22; O2SAT 96
[2023-02-03 07:02] LABS: C-Reactive Protein 28.1 mg/L (0-4)
[2023-02-03 07:05] LABS: Troponin I < 0.01 ng/ml (0.00-0.034)
[2023-02-03 07:08] LABS: NT Pro Brain Natriuretic Pep. 357 pg/mL (0-450)
[2023-02-03 07:13] LABS: Erythrocyte Sedimentation Rate 23 mm/hr (0-20)
[2023-02-03 07:16] LABS: Lymphocytes % 8 % (10-50); Monocytes % 4 % (2-9); Neutrophils % 88 % (42-76); Platelet Estimate Normal; RBC Morphology Normal; Total Cells Counted 100
--- NOTE | 2023-02-03 07:19 | PC.NURSE ---
verbal order television mechanic per MD for 1g tylenol. pt reports pain in lower back area.
--- NOTE | 2023-02-03 07:25 | PC.NURSE ---
pt to scan with radiology.
--- NOTE | 2023-02-03 07:34 | PC.NURSE ---
pt is lying in bed with call silva at BS. No requests voiced at this time.
--- NOTE | 2023-02-03 07:36 | PC.NURSE ---
pt back from CT. call light is at BS.
--- NOTE | 2023-02-03 07:49 | PC.NURSE ---
assisted pt with going to the bathroom with a urinal.
[2023-02-03 08:00] VITALS: BP 185/98; PULSE 70; RESP 18; O2SAT 95
[2023-02-03 08:15] VITALS: PULSE 65; RESP 23; O2SAT 95
--- NOTE | 2023-02-03 08:21 | PC.NURSE ---
pt is resting in bed. call light is at BS
[2023-02-03 08:51] VITALS: BP 178/98; PULSE 70; RESP 19; TEMP 36.7
== END 2023-02-03 08:51 | disposition still patient (30) ==
PROVIDERS: Emergency Provider Emergency Medicine; PCP Internal Medicine
DX: R06.02 Shortness of breath (principal); R11.2 Nausea with vomiting, unspecified; R61 Generalized hyperhidrosis; R51.9 Headache, unspecified; M54.6 Pain in thoracic spine; M54.50 Low back pain, unspecified; I48.91 Unspecified atrial fibrillation; I10 Essential (primary) hypertension; E11.9 Type 2 diabetes mellitus without complications; E78.5 Hyperlipidemia, unspecified; I35.8 Other nonrheumatic aortic valve disorders
CPT/HCPCS: 71045; 71275; 80053; 82803; 83880; 84484; 85007; 85025; 85378; 85651; 86140; 87636; 93005; 99285; Q9967

== ENCOUNTER → 2023-02-04 11:55 | Outpatient (CLI) | payer MEDICARE, BC, SELFPAY ==
--- NOTE | 2023-02-04 | NM_ITS ---
APPROVED REPORT Exam: Nuclear Stress Test Indication: A-FIB, HTN, DM, HYPERLIPIDEMIA, SYNCOPE, ABN EKG Patient Location: Outpatient Stress Tech: Erma Hamilton ID Tech:Reina Mosquera DEEDEEDalton RT (R)(N)(M) Ht: 7 ft 1 in Wt: 233 lbs HR: 82 bpm BP: 157/94 mmHg BSA: 2.56 m2 TID: 1.05 BMI: 22.6 History: A-FIB, HTN, DM, HYPERLIPIDEMIA, SYNCOPE, ABN EKG PT COULD NOT LIE ON STOMACH FOR PRONE IMAGES Procedure: Patient received 0.4 mg of intravenous Lexiscan, resting heart rate 82 bpm, resting blood pressure 157/94 mmHg, with Lexiscan maximum heart rate achieved was 91 bpm which is % of the maximum predicted heart rate and blood pressure was 102/63 mmHg. With Lexiscan, patient denied any complaint of chest pain. Cardiac Stress and Resting SPECT Images: Cardiac Stress and Resting SPECT images were obtained using technetium 99m Myoview 29.8 mCi stress and 10.14 mCi at rest. The patient could not lie on his abdomen for prone imaging, therefore prone stress imaging could not be performed. This may affect the diagnostic interpretation of the study findings. Resting and stress imaging in supine position demonstrate a large-sized, moderate, fixed perfusion defect in the basal to mid inferior, inferoseptal, inferolateral, and lateral LV lara. Gated imaging demonstrates mild reduction in global LV systolic function. There is moderate hypokinesis in the basal to mid inferior LV wall. LVEF is calculated at 44%. Conclusion: The patient could not lie on his abdomen for prone imaging, therefore prone stress imaging could not be performed. This may affect the diagnostic interpretation of the study findings. Large-sized, moderate, fixed perfusion defect in the basal to mid inferior, inferoseptal, inferolateral, and lateral LV lara. No evidence of reversible ischemia. Gated imaging demonstrates mild reduction in global LV systolic function. There is moderate hypokinesis in the basal to mid inferior LV wall. LVEF is calculated at 44%. Electronically signed by : Lucero Lisa, 02/07/2023 15:17:16
--- NOTE | 2023-02-04 11:55 | CA_ITS ---
APPROVED REPORT Exam: Pharmacologic Technologist: Erma Hamilton, Ht: 5 ft 10 in Wt: 233 lbs BSA: 2.23 m2 HR: 82 bpm BP: 157/94 mmHg Rhythm: AFIB, POOR R WAVE PROGRESSION, CANNOT R/O OLD INFERIOR WI, PVCS Medical History Medical History: HTN, , Hyperlipidemia Medications: Amlodipine,,,,, Potassium Chloride,,,,, Pravastatin,,,,, FOLIC ACID,,,,, Prednisone,,,,, Diclofenac Sodium,,,,, Methotrexate sodium,,,,, ElIQIS,,,,, EnALARIL HCTZ,,,,, Allergies: No known drug allergies Cardiac Risk Factors: HTN, Hyperlipidemia Stress Test Details Test: LEXISCAN HR Resting HR: 82 bpm Max Heart Rate (APMHR): 140 bpm Max HR Achieved: 99 bpm Target HR (85% APMHR): 119 bpm % of APMHR: 71 Recovery HR: 81 bpm BP Resting BP: 157/94 mmHg Max BP: 162/85 mmHg Recovery BP: 162.0/85.0 mmHg ECG Resting ECG: AFIB, POOR R WAVE PROGRESSION, CANNOT R/O OLD INFERIOR WI, PVCS Stress ECG: NO CHANGE Arrhythmia: PVCs Clinical Exercise duration: 04:01 min Highest Stage Achieved: Exercise capacity: n/a METs Stress ECG Conclusion PLACED IN [place] AT 2 MINUTES PT HAD MILD SOA, BECAME LIGHT-HEADED AND MALAISE NO CP OCC PVC NO ST SIGNIFICANT CHANGES CONCLUSION UNREMARKABLE LEXISCAN STRESS MYOVIEW IMAGES REPORTED SEPARATELY Test Summary REST 06:05 . . 82 . 157/ 94 . . Stage 1 01:00 . . 88 . . . . Stage 2 01:00 . . 91 . 102/ 63 . . Stage 3 01:00 . . 86 . 123/ 63 . . Stage 4 01:00 . . 85 . . . . Stage 4 01:01 . . 85 . . . Stop exercise at 04:01 RECOVERY 01:00 . . 84 . 145/ 93 . . RECOVERY 02:00 . . 84 . 145/ 93 . . RECOVERY 03:00 . . 84 . 149/ 83 . . RECOVERY 04:00 . . 82 . 149/ 83 . . RECOVERY 05:00 . . 80 . 149/ 89 . . RECOVERY 06:00 . . 83 . 162/ 85 . . RECOVERY 06:06 . . 86 . 162/ 85 . . Electronically signed by : Lucero Lisa, 02/14/2023 13:36:48
== END ==
PROVIDERS: PCP Internal Medicine; Visit Provider Nurse Practitioner
DX: I51.89 Other ill-defined heart diseases (principal); I48.91 Unspecified atrial fibrillation; I35.8 Other nonrheumatic aortic valve disorders; R94.31 Abnormal electrocardiogram [ECG] [EKG]
CPT/HCPCS: 78452; 93017; A9502; J2785

== ENCOUNTER 2023-02-15 01:50 | Inpatient (IN) | payer MEDICARE, BC, SELFPAY ==
[2023-02-15] VITALS (20 sets, daily range): BP systolic 119–185; BP diastolic 61–121; PULSE 52–77; RESP 18–20; TEMP 36.4–36.9; O2SAT 92–98; BMI 31.5; BMI 31.8
--- NOTE | 2023-02-15 01:51 | ECG_ITS ---
APPROVED REPORT Exam: Resting ECG HR:75 bpm ECG Measurements Heart Rate 75 AXES QRSd 117 QRS -29 QT 413 T 15 QTc 441 Conclusion ATRIAL FIBRILLATION BORDERLINE LEFT AXIS DEVIATION [QRS AXIS < -20] MODERATE INTRAVENTRICULAR CONDUCTION DELAY [110+ ms QRS DURATION] ABNORMAL RHYTHM ECG INTERPRETATION BASED ON A DEFAULT AGE OF 40 YEARS UNCONFIRMED REPORT Electronically signed by : Mynor Phelps MD 02/15/2023 19:50:23
--- NOTE | 2023-02-15 01:59 | PC.NURSE ---
Doctor at bedside
--- NOTE | 2023-02-15 02:08 | XR_ITS ---
PROCEDURE INFORMATION: Exam: XR Chest Exam date and time: 02/15/2023 2:09 AM Age: 82 years old Clinical indication: Dyspnea; Additional info: Acute on chronic dysnea TECHNIQUE: Imaging protocol: Radiologic exam of the chest. Views: 1 view. COMPARISON: CR XR CHEST PORTABLE 02/03/2023 6:35 AM FINDINGS: Lungs: Lung volumes are mildly diminished. The lungs appear overall clear. No focal areas of consolidation. There is improved clearing to both lung bases since prior exam. Pleural spaces: No pleural effusions. Negative for pneumothorax. Heart/Mediastinum: Cardiac silhouette and pulmonary vasculature are within range of normal. Bones/joints: There is no evidence of acute fracture. IMPRESSION: 1. Negative for an acute cardiopulmonary abnormality. 2. Mildly improved lung volumes.
--- NOTE | 2023-02-15 02:11 | HMH.EDGENADL ---
Discharge Plan Disposition Chief Complaint: Shortness of Breath/Dyspnea Discharge ED Provider: Sp Schmitt General Adult HPI General Chief complaint: Shortness of Breath/Dyspnea Stated complaint: SOA Time Seen by Provider: 02/15/23 01:54 Mode of Arrival: EMS Source of Information: Patient and EMS Limitations: No Limitations Description of Symptoms (Recalled from ER Triage Doc. by RN): Pt arrives by EMS with complaints of SOA and mid back pain. Recently dx with afib and placed on Holter Monitor. History of Present Illness HPI narrative: 82-year-old male reported history of recent onset A-fib on blood thinner, hypertension, diabetes, aortic valve sclerosis presents with multiple complaints. Patient reports approximate 2 to 3 hours of worsening shortness of breath prompting presentation. He reports that he had a similar episode approximate 10 days ago but was not given a full diagnosis. He is currently wearing a Holter monitor and has scheduled follow-up with Dr. Franks tomorrow. He reports mild central chest pain and epigastric abdominal pain. Reports feeling like he is having trouble catching his breath. Patient is also complaining of back pain which has been stable/worsening since early January. Pain began when he was playing golf. Related Data Home Medications Medication Instructions Recorded Confirmed amlodipine 10 mg tablet 10 mg PO DAILY Hypertension 01/29/23 02/15/23 diclofenac sodium 75 mg 75 mg PO DAILY Pain 01/29/23 02/15/23 tablet,delayed release empagliflozin 25 mg-linagliptin 5 1 tab PO DAILY Diabetes 01/29/23 02/15/23 mg tablet (Glyxambi) enalapril 10 1 tab PO DAILY Hypertension 01/29/23 02/15/23 mg-hydrochlorothiazide 25 mg tablet folic acid 1 mg tablet 1 mg PO DAILY Supplement 01/29/23 02/15/23 methotrexate sodium 2.5 mg tablet 20 mg PO WEEKLY Rheumatoid 01/29/23 02/15/23 Arthritis pravastatin 40 mg tablet 40 mg PO DAILY Cholesterol 01/29/23 02/15/23 prednisone 1 mg tablet 2 mg PO DAILY STEROID 01/29/23 02/15/23 apixaban 5 mg tablet (Eliquis) 5 mg PO BID Coronary Artery Disease 02/02/23 02/15/23 bisoprolol fumarate 5 mg tablet 5 mg PO QDAY Hypertension 02/15/23 02/15/23 calcium carbonate 500 mg-vitamin 2 tab PO DAILY Diet Supplement 02/15/23 02/15/23 D3 10 mcg (400 unit) tablet (Oyster Shell Calcium-Vitamin D3) potassium chloride 20 mEq 20 meq PO DAILY hypokalemia 02/15/23 02/15/23 tablet,extended release Allergies Allergy/AdvReac Type Severity Reaction Status Date / Time No Known Drug Allergies Allergy Unknown Verified 02/02/23 09:54 [facility] Disclaimer: The information contained in this section may have been updated after the patient was seen, as this information can be updated by other users. Medical History (Updated 02/03/23 @ 08:33 by Rich Colbert MD) Abnormal electrocardiogram [ECG] [EKG] Aortic valve sclerosis Atrial fibrillation Back pain Diastolic dysfunction Night sweats Social History Smoking Status: Never smoker alcohol intake: never current occupational status: employed Travel in the last 8 weeks: Inside the [place] ROS Obtained: Yes All systems reviewed & no additional complaints except as documented Physical Exam General General appearance: alert and in no apparent distress Head Head exam: atraumatic and normocephalic Eye Eye exam: Present normal appearance, PERRL and EOMI ENT ENT exam: Present normal oropharynx and normal external ear exam Neck Neck exam: Present normal inspection and full ROM Chest Chest inspection: Present normal inspection and symmetric chest wall rise; Absent tenderness Respiratory Respiratory exam: Present normal lung sounds bilaterally; Absent respiratory distress Cardiovascular Cardiovascular exam: Present regular rate and irregular rhythm Abdominal Exam Abdominal exam: Present soft and tenderness (Epigastric); Absent distention or guarding Extremities Exa
--- NOTE | 2023-02-15 02:12 | PC.NURSE ---
RAD at for CXR
[2023-02-15 02:17] LABS: Basophils # 0.1 K/mm3 (0-0.2); Basophils % 0.4 % (0.1-2.0); Eosinophils # 0.2 K/mm3 (0.0-0.4); Eosinophils % 1.8 % (0.1-12.0); Hematocrit 48.5 % (42.0-52.0); Hemoglobin 15.4 g/dL (14.1-18.0); Lymphocytes # 1.6 K/mm3 (0.7-4.5); Lymphocytes % 12.5 % (10-50); Mean Corpuscular HGB Conc 31.8 g/dL (31.8-35.4); Mean Corpuscular Hemoglobin 29.7 pg (27.0-31.2); Mean Corpuscular Volume 93.4 fl (80-94); Mean Platelet Volume 7.9 fl (7.4-10.4); Monocytes # 1.1 K/mm3 (0.1-1.0); Monocytes % 8.2 % (1.7-9.3); Neutrophils # 9.9 K/mm3 (1.8-7.8); Neutrophils % 77.2 % (37.0-80.0); Platelet Count 399 K/mm3 (142-424); Red Cell Distribution Width 15.3 % (11.5-17.5); White Blood Count 12.8 K/mm3 (4.8-10.8)
[2023-02-15 02:21] LABS: Alanine Aminotransferase 26 U/L (12-78); Albumin Level 3.7 g/dl (3.5-5.0); Albumin/Globulin Ratio 1.1 (1.1-1.8); Alkaline Phosphatase 87 U/L (38-126); Anion Gap 10.7 mEq/L (5-15); Aspartate Amino Transferase 25 U/L (17-59); Bilirubin,Total 0.3 mg/dl (0.2-1.3); Blood Urea Nitrogen 9 mg/dl (9-20); Calcium 8.6 mg/dl (8.4-10.2); Carbon Dioxide 29 mmol/L (22.0-30.0); Chloride 97 mmol/L (98-107); Creatinine Clearance Estimated 83 mL/min (50-200); Estimated Glomerular Filt Rate 130 ml/min (>60); GFR (African American) 157 ML/MIN (>60); Globulin 3.3 g/dL (1.3-3.2); Glucose 128 mg/dl (74-100); Lipase 1125 U/L (23-300); Potassium 3.7 mmoL/L (3.5-5.1); Sodium 133 mmol/L (136-145)
[2023-02-15 02:26] LABS: D-Dimer 0.65 ug/mL (0.0-0.5)
[2023-02-15 02:34] LABS: NT Pro Brain Natriuretic Pep. 492 pg/mL (0-450)
[2023-02-15 02:35] LABS: Troponin I < 0.01 ng/ml (0.00-0.034)
--- NOTE | 2023-02-15 03:01 | CT_ITS ---
PROCEDURE INFORMATION: Exam: CT Abdomen And Pelvis With Contrast Exam date and time: 02/15/2023 3:18 AM Age: 82 years old Clinical indication: Abdominal pain; Additional info: Abd pain, mid thoracic back pain, elevated lipase TECHNIQUE: Imaging protocol: Computed tomography of the abdomen and pelvis with contrast. Radiation optimization: All CT scans at this facility use at least one of these dose optimization techniques: automated exposure control; mA and/or kV adjustment per patient size (includes targeted exams where dose is matched to clinical indication); or iterative reconstruction. Contrast material: ISOVUE; Contrast volume: 75 ml; Contrast route: IV; REPORTING DATA: Count of CT and Cardiac NM exams in prior 12 months: This patient has received 4 known CTs and 0 known cardiac nuclear medicine studies in the 12 months prior to the current study. COMPARISON: CT ANGIO CHEST 02/03/2023 7:30 AM FINDINGS: Lungs: Subpleural scarring and/or atelectasis. Coronary arteries: Calcific coronary artery disease is evident. Diaphragm: A small sliding hiatal hernia is present. Liver: Hepatic steatosis is evident. Gallbladder and bile ducts: Normal. No calcified stones. No ductal dilation. Pancreas: Single calcification of the pancreatic tail is redemonstrated with convincing acute pancreatic inflammation. Spleen: Normal. No splenomegaly. Adrenal glands: Normal. No mass. Kidneys and ureters: Bilateral likely benign renal cysts, requiring no further evaluation, as large as 11 cm. Lateral interpolar 19 x 19 mm potential complex cyst of the right kidney. Stomach and bowel: Proximal sigmoid colon demonstrates diverticular disease with wall thickening that is likely related to chronic inflammation of diverticulosis but possibly very early or resolving acute diverticulitis. Appendix: Normal appendix. Intraperitoneal space: Unremarkable. No free air. No significant fluid collection. Vasculature: Atherosclerosis is evident. Lymph nodes: Unremarkable. No enlarged lymph nodes. Urinary bladder: Unremarkable as visualized. Reproductive: Unremarkable as visualized. Bones/joints: Facet joint degenerative changes are present. Multifocal neural foraminal stenosis, due to degeneration. Soft tissues: Prior mesh plug repair of umbilical hernia suspected. Other findings: Aortic valve calcification is present, often associated with aortic stenosis. IMPRESSION: 1. Single calcification of the pancreatic tail is redemonstrated with convincing acute pancreatic inflammation. 2. Normal appendix. 3. Proximal sigmoid colon demonstrates diverticular disease with wall thickening that is likely related to chronic inflammation of diverticulosis but possibly very early or resolving acute diverticulitis. 4. Lateral interpolar 19 x 19 mm potential complex cyst of the right kidney. Non-emergent ultrasound could be considered to further define.
--- NOTE | 2023-02-15 03:12 | PC.NURSE ---
Pt gone to RAD via stretcher
--- NOTE | 2023-02-15 03:15 | PC.NURSE ---
PATIENT TO CT
--- NOTE | 2023-02-15 03:23 | PC.NURSE ---
PT returned from RAD
--- NOTE | 2023-02-15 04:01 | PC.NURSE ---
ROUNDED ON PATIENT, PATIENT HAS NO COMPLAINTS AT THIS TIME. CALL LIGHT WITHIN REACH
--- NOTE | 2023-02-15 05:06 | PC.NURSE ---
Executive Sales Assistant notified of patient being admitted, patient will board in ER until staff available on the floor
--- NOTE | 2023-02-15 05:09 | PC.NURSE ---
PATIENT ADMITTED TO 202 OBSERVATION WITH DX OF PANCREATITIS TO SERVICE OF DR. FARMER.
--- NOTE | 2023-02-15 05:36 | EXP.HP ---
History of Present Illness *Admission Date: 02/15/23 *Reason for visit:: Sob/abdominal pain *History of present illness: This is 82-year-old male with PMHx of recent onset A-fib on blood thinner, hypertension, diabetes, aortic valve sclerosis, melanoma, Diabetes, presented with multiple complaints. Patient reports approximate 2 to 3 hours of worsening shortness of breath prompting presentation. He reports that he had a similar episode approximate 10 days ago but was not given a full diagnosis. He is currently wearing a Holter monitor and has scheduled follow-up with Dr. Franks tomorrow. He has reported for intermittent abdominal pain on epigastric, that migrates to the back. Nothing tried at home made him feel better. Patient lives alone. Admitted for further management. [facility] Disclaimer: The information contained in this section may have been updated after the patient was seen, as this information can be updated by other users. Medical History (Updated 02/15/23 @ 11:10 by Sayda Foote APRN) Abnormal electrocardiogram [ECG] [EKG] Aortic valve sclerosis Atrial fibrillation Back pain Diabetes mellitus, type 2 Diastolic dysfunction Night sweats Rheumatoid arthritis Skin cancer Surgical History (Updated 02/15/23 @ 10:09 by Nurys Walters RN) H/O hernia repair Family History (Updated 02/15/23 @ 10:09 by Nurys Walters RN) Liver cancer Skin cancer Brain cancer Family history of asthma Family history of diabetes mellitus type II Lung cancer Social History (Updated 02/15/23 @ 10:09 by Nurys Walters RN) Smoking Status: Never smoker alcohol intake: never current occupational status: employed Travel in the last 8 weeks: Inside the [place] Review of Systems Review of Systems Review of systems:: pertinent systems reviewed and negative unless documented below Meds Home Medications and Allergies Home Medications Medication Instructions Recorded Confirmed Type amlodipine 10 mg tablet 10 mg PO DAILY Hypertension 01/29/23 02/15/23 History diclofenac sodium 75 mg 75 mg PO DAILY Pain 01/29/23 02/15/23 History tablet,delayed release empagliflozin 25 mg-linagliptin 5 1 tab PO DAILY Diabetes 01/29/23 02/15/23 History mg tablet (Glyxambi) enalapril 10 1 tab PO DAILY Hypertension 01/29/23 02/15/23 History mg-hydrochlorothiazide 25 mg tablet folic acid 1 mg tablet 1 mg PO DAILY Supplement 01/29/23 02/15/23 History methotrexate sodium 2.5 mg tablet 2.5 mg PO WEEKLY Rheumatoid 01/29/23 02/15/23 History Arthritis pravastatin 40 mg tablet 40 mg PO DAILY Cholesterol 01/29/23 02/15/23 History prednisone 1 mg tablet 2 mg PO DAILY STEROID 01/29/23 02/15/23 History apixaban 5 mg tablet (Eliquis) 5 mg PO BID Blood thinner/Afib 02/02/23 02/15/23 History bisoprolol fumarate 5 mg tablet 5 mg PO QDAY Hypertension 02/15/23 02/15/23 History potassium chloride 20 mEq 20 meq PO DAILY hypokalemia 02/15/23 02/15/23 History tablet,extended release New Prescriptions to Start Prescriptions: Allergies Allergy/AdvReac Type Severity Reaction Status Date / Time No Known Drug Allergies Allergy Unknown Verified 02/02/23 09:54 Exam Data for Last 24 hours Vital signs and Labs for Last 24 Hours: Temp Pulse Resp BP Pulse Ox O2 Del Method 97.6 F 72 20 182/93 H 97 Room Air 02/15/23 01:50 02/15/23 03:01 02/15/23 01:50 02/15/23 03:01 02/15/23 03:01 02/15/23 03:01 Laboratory Results - last 24 hr 02/15/23 01:56: WBC 12.8 H, RBC 5.20, Hgb 15.4, Hct 48.5, MCV 93.4, MCH 29.7, MCHC 31.8, RDW 15.3, Plt Count 399, MPV 7.9, Neut % (Auto) 77.2, Lymph % (Auto) 12.5, [place] % (Auto) 8.2, Eos % (Auto) 1.8, Baso % (Auto) 0.4, Neut # (Auto) 9.9 H, Lymph # (Auto) 1.6, [place] # (Auto) 1.1 H, Eos # (Auto) 0.2, Baso # (Auto) 0.1, D-Dimer 0.65 H, Sodium 133 L, Potassium 3.7, Chloride 97 L, Carbon Dioxide 29, Anion Gap 10.7, BUN 9, Creatinine 0.60 L, Estimated Creat Clear 83, Estimated GFR 130
[2023-02-15 06:42] LABS: Chol/HDL Ratio 3.5 (1-3.5); Cholesterol 149 mg/dl (140-200); HDL Cholesterol 42 mg/dl (40-60); Magnesium 2.1 mg/dl (1.6-2.3); Triglycerides 113 mg/dl (30-150); VLDL Cholesterol 23 mg/dL (0-40)
[2023-02-15 06:52] LABS: Direct LDL Cholesterol 77.47 mg/dL (100-129); Troponin I 0.02 ng/ml (0.00-0.034)
--- NOTE | 2023-02-15 07:51 | PC.NURSE ---
report called to [facility]
--- NOTE | 2023-02-15 08:18 | PC.NURSE ---
arrived by w/c from ED
[2023-02-15 11:01] LABS: POC Glucose,Bedside 106 (70-110)
--- NOTE | 2023-02-15 11:01 | EXP.CARD.CON ---
History of Present Illness History of Present Illness Consult date: 02/15/23 Requesting physician: Alverto Harper Consult reason: known to you Chief complaint: acute pancreatitis History of present illness: 82 year old male with past medical hx of aortic valve sclerosis, afib on eliquis, diastolic dysfunction, former smoker, and DM presented to ER with complaints of abdominal pain and back pain. Upon presentation to ER EKG showed A-fib with a rate of 75, no acute ischemic changes noted. A CT of abdomen was performed and showed mild acute pancreatitis. Labs as follow: WBC 12.8, hemoglobin 15.4, sodium 133, potassium 3.7, creatinine 0.6, troponin 0.01, proBNP 492 and lipase 1125. Patient was admitted for acute pancreatitis. Of note, patient recently underwent a stress test which was positive for large size, moderate fixed perfusion defect in the basal to mid inferior and inferior septal and inferior lateral and lateral LV lara. No evidence of reversible ischemia was noted. Echo 07/25/2022 showed an estimated EF of 50 to 60%, grade 2 diastolic dysfunction with no wall motion abnormalities present. Patient denies chest pain this admission and serial troponins remain negative. [facility] Disclaimer: The information contained in this section may have been updated after the patient was seen, as this information can be updated by other users. Medical History (Updated 02/15/23 @ 11:10 by Sayda Foote APRN) Abnormal electrocardiogram [ECG] [EKG] Aortic valve sclerosis Atrial fibrillation Back pain Diabetes mellitus, type 2 Diastolic dysfunction Night sweats Rheumatoid arthritis Skin cancer Surgical History (Updated 02/15/23 @ 10:09 by Nurys Walters RN) H/O hernia repair Family History (Updated 02/15/23 @ 10:09 by Nurys Walters RN) Other Brain cancer Family history of asthma Family history of diabetes mellitus type II Liver cancer Lung cancer Skin cancer Social History (Updated 02/15/23 @ 10:09 by Nurys Walters RN) Smoking Status: Never smoker alcohol intake: never current occupational status: employed Travel in the last 8 weeks: Inside the [place] Review of Systems *Cardiovascular Cardiovascular: Reports chest pain at rest *Gastrointestinal Gastrointestinal: Reports abdominal pain *Musculoskeletal Comments: Back pain Exam Data for Last 24 hours Vital signs and Labs for Last 24 Hours: Temp Pulse Resp BP Pulse Ox O2 Del Method 97.6 F 68 20 144/61 H 97 Room Air 07/31/23 08:22 02/15/23 08:22 02/15/23 08:22 02/15/23 08:22 02/15/23 08:21 02/15/23 10:33 Laboratory Results - last 24 hr 02/15/23 01:56: WBC 12.8 H, RBC 5.20, Hgb 15.4, Hct 48.5, MCV 93.4, MCH 29.7, MCHC 31.8, RDW 15.3, Plt Count 399, MPV 7.9, Neut % (Auto) 77.2, Lymph % (Auto) 12.5, [place] % (Auto) 8.2, Eos % (Auto) 1.8, Baso % (Auto) 0.4, Neut # (Auto) 9.9 H, Lymph # (Auto) 1.6, [place] # (Auto) 1.1 H, Eos # (Auto) 0.2, Baso # (Auto) 0.1, D-Dimer 0.65 H, Sodium 133 L, Potassium 3.7, Chloride 97 L, Carbon Dioxide 29, Anion Gap 10.7, BUN 9, Creatinine 0.60 L, Estimated Creat Clear 83, Estimated GFR 130, Est GFR ( Amer) 157, Glucose 128 H, Calcium 8.6, Total Bilirubin 0.3, AST 25, ALT 26, Alkaline Phosphatase 87, Troponin I < 0.01, NT-Pro-B Natriuret Pep 492 H, Total Protein 7.0, Albumin 3.7, Globulin 3.3 H, Albumin/Globulin Ratio 1.1, Lipase 1125 H 02/15/23 06:12: Magnesium 2.1, Troponin I 0.02, Triglycerides 113, Cholesterol 149, LDL Cholesterol Direct 77.47 L, VLDL Cholesterol 23, HDL Cholesterol 42, Cholesterol/HDL Ratio 3.5 I & O for Last 24 hours: Intake & Output 02/12/23 02/13/23 02/14/23 02/15/23 23:59 23:59 23:59 23:59 Output Total 0 / 0 Balance 0 / 0 Weight 221 lb 9 oz Constitutional Constitutional: no acute distress *Routine Respiratory Exam Respiratory: Present CTA bilaterally and symmetric chest movement *Routine Cardiovascular Exam Cardiovascular: Present Normal S1 and N
--- NOTE | 2023-02-15 11:45 | P.CONPHA_ITS ---
Pharmacy Intervention Comments: Home medications were verified by calling [facility] pharmacy and confirming med list. -Andry chand, PharmD student
--- NOTE | 2023-02-15 11:45 | HMH.PHAINT1 ---
Pharmacy Intervention Comments: Home medications were verified by calling [facility] pharmacy and confirming med list. -Andry chand, PharmD student
--- NOTE | 2023-02-15 12:11 | PC.NURSE ---
courtesy tech note: pt is sitting up in bed. no requests voiced at this time. call light is within reach.
--- NOTE | 2023-02-15 14:16 | PC.NURSE ---
Dr. Guthrie's office notified of pt. being admitted per pt. request.
[2023-02-15 16:21] LABS: POC Glucose,Bedside 116 (70-110)
[2023-02-15 21:03] LABS: POC Glucose,Bedside 138 (70-110)
[2023-02-16 03:53] VITALS: BP 172/80; PULSE 64; RESP 16; TEMP 36.8; O2SAT 96; BMI 31.7
--- NOTE | 2023-02-16 04:35 | PC.NURSE ---
Patient has had a good night. No issues other than back pain. Patient requested pain meds see MAR. No other issues noted
[2023-02-16 05:48] LABS: POC Glucose,Bedside 117 (70-110)
[2023-02-16 07:01] LABS: Basophils % 0.2 % (0.1-2.0); Eosinophils # 0.3 K/mm3 (0.0-0.4); Eosinophils % 1.9 % (0.1-12.0); Hematocrit 49.9 % (42.0-52.0); Hemoglobin 15.3 g/dL (14.1-18.0); Lymphocytes # 1.5 K/mm3 (0.7-4.5); Lymphocytes % 10.4 % (10-50); Mean Corpuscular HGB Conc 30.7 g/dL (31.8-35.4); Mean Corpuscular Hemoglobin 29.9 pg (27.0-31.2); Mean Corpuscular Volume 97.6 fl (80-94); Mean Platelet Volume 7.4 fl (7.4-10.4); Monocytes # 1.2 K/mm3 (0.1-1.0); Neutrophils # 11.5 K/mm3 (1.8-7.8); Neutrophils % 79.5 % (37.0-80.0); Platelet Count 341 K/mm3 (142-424); Red Blood Count 5.11 M/mm3 (4.60-6.20); Red Cell Distribution Width 15.3 % (11.5-17.5); White Blood Count 14.5 K/mm3 (4.8-10.8)
[2023-02-16 07:08] LABS: Chloride 96 mmol/L (98-107)
[2023-02-16 07:09] LABS: Potassium 4.1 mmoL/L (3.5-5.1); Sodium 134 mmol/L (136-145)
[2023-02-16 07:11] LABS: Alanine Aminotransferase 34 U/L (12-78); Aspartate Amino Transferase 28 U/L (17-59); Blood Urea Nitrogen 8 mg/dl (9-20); Creatinine Clearance Estimated 84 mL/min (50-200); Estimated Glomerular Filt Rate 130 ml/min (>60); GFR (African American) 157 ML/MIN (>60)
[2023-02-16 07:12] LABS: Albumin Level 3.7 g/dl (3.5-5.0); Albumin/Globulin Ratio 1.2 (1.1-1.8); Alkaline Phosphatase 81 U/L (38-126); Anion Gap 11.1 mEq/L (5-15); Bilirubin,Total 0.5 mg/dl (0.2-1.3); Calcium 8.8 mg/dl (8.4-10.2); Carbon Dioxide 31 mmol/L (22.0-30.0); Globulin 3.2 g/dL (1.3-3.2); Glucose 112 mg/dl (74-100); Total Protein,Serum 6.9 g/dl (6.3-8.2)
[2023-02-16 07:20] VITALS: BP 129/78; PULSE 53; RESP 18; TEMP 36.8; O2SAT 94
--- NOTE | 2023-02-16 07:34 | EXP.PN ---
Subjective *Date: 02/16/23 *Time: 17:42 Interval history: No acute events overnight. Feels better than yesterday. Pain is in control with analgesic medications. He hasn't had a bowel movement in several days. Exam Data for Last 24 hours Vital signs and Labs for Last 24 Hours: Temp Pulse Resp BP Pulse Ox O2 Del Method 98.2 F 53 L 18 129/78 94 L Room Air 02/16/23 07:20 02/16/23 07:20 02/16/23 07:20 02/16/23 07:20 02/16/23 07:20 02/16/23 07:20 Laboratory Results - last 24 hr 02/15/23 10:50: POC Glucose 106 02/15/23 16:11: POC Glucose 116 H 02/15/23 20:13: POC Glucose 138 H 02/16/23 05:25: POC Glucose 117 H 02/16/23 06:42: WBC 14.5 H, RBC 5.11, Hgb 15.3, Hct 49.9, MCV 97.6 H, MCH 29.9, MCHC 30.7 L, RDW 15.3, Plt Count 341, MPV 7.4, Neut % (Auto) 79.5, Lymph % (Auto) 10.4, [place] % (Auto) 8.0, Eos % (Auto) 1.9, Baso % (Auto) 0.2, Neut # (Auto) 11.5 H, Lymph # (Auto) 1.5, [place] # (Auto) 1.2 H, Eos # (Auto) 0.3, Baso # (Auto) 0.0, Sodium 134 L, Potassium 4.1, Chloride 96 L, Carbon Dioxide 31 H, Anion Gap 11.1, BUN 8 L, Creatinine 0.60 L, Estimated Creat Clear 84, Estimated GFR 130, Est GFR ( Amer) 157, Glucose 112 H, Calcium 8.8, Total Bilirubin 0.5, AST 28, ALT 34 D, Alkaline Phosphatase 81, Total Protein 6.9, Albumin 3.7, Globulin 3.2, Albumin/Globulin Ratio 1.2 I & O for Last 24 hours: Intake & Output 02/13/23 02/14/23 02/15/23 02/16/23 23:59 23:59 23:59 23:59 Intake Total 480 / 480 240 / 240 Output Total 0 / 0 600 / 600 Balance 480 / 480 -360 / -360 Weight 100.499 kg 100.499 kg Constitutional Constitutional: no acute distress *Routine HEENT Exam Head: Present normocephalic Eye: Present EOMI and PERRL ENT: Present mucous membranes moist *Routine Neck Exam Neck: Present supple; Absent lymphadenopathy *Routine Respiratory Exam Respiratory: Present CTA bilaterally *Routine Cardiovascular Exam Cardiovascular: Present RRR *Routine Abdominal Exam Abdominal: Present soft and normoactive bowel sounds; Absent tenderness *Routine Extremities Exam Extremities: Absent cyanosis, clubbing or edema *Routine Skin Exam Skin: Present warm; Absent rash *Routine Neurological Exam Neurological: Present alert and oriented X3 Assessment and Plan *Assessment and plan (1) Acute pancreatitis: Status: Acute Qualifiers: Acute pancreatitis complication: unspecified Pancreatitis type: unspecified pancreatitis type Qualified Code(s): K85.90 - Acute pancreatitis without necrosis or infection, unspecified Category: Medical Code(s): K85.90 - Acute pancreatitis without necrosis or infection, unspecified (2) Acute dyspnea: Status: Acute Category: Medical Code(s): R06.00 - Dyspnea, unspecified (3) Hyponatremia: Status: Acute Category: Medical Code(s): E87.1 - Hypo-osmolality and hyponatremia (4) Aortic valve sclerosis: Status: Acute Category: Medical Code(s): I35.8 - Other nonrheumatic aortic valve disorders (5) Atrial fibrillation: Status: Acute Qualifiers: Atrial fibrillation type: unspecified Qualified Code(s): I48.91 - Unspecified atrial fibrillation Category: Medical Code(s): I48.91 - Unspecified atrial fibrillation (6) Diabetes mellitus: Status: Acute Qualifiers: Diabetes mellitus type: type 2 Diabetes mellitus terminal superintendent insulin use: without retirement use Diabetes mellitus complication status: without complication Qualified Code(s): E11.9 - Type 2 diabetes mellitus without complications Category: Medical Code(s): E11.9 - Type 2 diabetes mellitus without complications (7) Hypertension: Status: Acute Qualifiers: Hypertension type: unspecified Qualified Code(s): I10 - Essential (primary) hypertension Category: Medical Code(s): I10 - Essential (primary) hypertension Plan Mack Bower is a 82 year old male with
--- NOTE | 2023-02-16 08:53 | EXP.CARD.PN ---
Subjective Subjective Date: 02/16/23 Time: 08:00 Principal diagnosis: Acute pancreatitis Interval history: Doing well this morning, denies complaints. Morning labs reviewed. Exam Data for Last 24 hours Vital signs and Labs for Last 24 Hours: Temp Pulse Resp BP Pulse Ox O2 Del Method 98.2 F 53 L 18 129/78 94 L Room Air 02/16/23 07:20 02/16/23 07:20 02/16/23 07:20 02/16/23 07:20 02/16/23 07:20 02/16/23 07:20 Laboratory Results - last 24 hr 02/15/23 10:50: POC Glucose 106 02/15/23 16:11: POC Glucose 116 H 02/15/23 20:13: POC Glucose 138 H 02/16/23 05:25: POC Glucose 117 H 02/16/23 06:42: WBC 14.5 H, RBC 5.11, Hgb 15.3, Hct 49.9, MCV 97.6 H, MCH 29.9, MCHC 30.7 L, RDW 15.3, Plt Count 341, MPV 7.4, Neut % (Auto) 79.5, Lymph % (Auto) 10.4, [place] % (Auto) 8.0, Eos % (Auto) 1.9, Baso % (Auto) 0.2, Neut # (Auto) 11.5 H, Lymph # (Auto) 1.5, [place] # (Auto) 1.2 H, Eos # (Auto) 0.3, Baso # (Auto) 0.0, Sodium 134 L, Potassium 4.1, Chloride 96 L, Carbon Dioxide 31 H, Anion Gap 11.1, BUN 8 L, Creatinine 0.60 L, Estimated Creat Clear 84, Estimated GFR 130, Est GFR ( Amer) 157, Glucose 112 H, Calcium 8.8, Total Bilirubin 0.5, AST 28, ALT 34 D, Alkaline Phosphatase 81, Total Protein 6.9, Albumin 3.7, Globulin 3.2, Albumin/Globulin Ratio 1.2 I & O for Last 24 hours: Intake & Output 02/13/23 02/14/23 02/15/23 02/16/23 23:59 23:59 23:59 23:59 Intake Total 480 / 480 240 / 240 Output Total 0 / 0 600 / 600 Balance 480 / 480 -360 / -360 Weight 221 lb 9 oz 221 lb 8.998 oz Constitutional Constitutional: no acute distress *Routine Respiratory Exam Respiratory: Present CTA bilaterally and symmetric chest movement *Routine Cardiovascular Exam Cardiovascular: Present RRR, Normal S1 and Normal S2 Comments: A-fib rate controlled *Routine Abdominal Exam Abdominal: Present soft and normoactive bowel sounds; Absent tenderness *Routine Extremities Exam Extremities: Present full ROM and normal capillary refill; Absent edema *Routine Skin Exam Skin: Present intact, dry and warm Detailed Neck Exam: Thyroids Thyroid: Absent bruit Progress Note: A&P Assessment and plan (1) Acute pancreatitis: Status: Acute (2) Acute dyspnea: Status: Acute (3) Hyponatremia: Status: Acute (4) Aortic valve sclerosis: Status: Acute (5) Atrial fibrillation: Status: Acute (6) Diabetes mellitus: Status: Acute (7) Hypertension: Status: Acute Assessment and Plan Assessment and Plan for All Diagnoses:: Coronary artery disease -Stress test 01/2023-large size, moderate, fixed perfusion defect in the basal to mid inferior, inferior septal, inferior lateral, and lateral LV lara with no evidence of reversible ischemia. -No previous cath noted -Patient denies chest pain currently -Serial troponins negative -EKG negative for acute ischemic changes -Start aspirin 81 mg p.o. daily. Continue bisoprolol 5 mg p.o. daily, pravastatin 40 mg p.o. daily. 02/16/2023: Outpatient left heart cath is scheduled for February 24, patient is aware A-fib [id number] score 5 -Continue bisoprolol 5 mg p.o. daily and Eliquis 5 mg twice daily -Currently wearing 2-week event monitor -Echo 01/2023-ejection fraction 50 to 60%, grade 2 diastolic dysfunction, no regional wall motion abnormalities noted, calcific aortic sclerosis without hemodynamically significant aortic stenosis Diabetes mellitus -Defer to primary service Hypertension -Continue amlodipine 10 mg p.o. daily, enalapril/hydrochlorothiazide 10/25 mg p.o. day Acute pancreatitis -Defer to primary service CV summary 02/16/2023: CV stable for discharge. Patient has a outpatient left heart cath scheduled for February 24, patient is aware. Please have patient follow-up in cardiology clinic 1 week post cath. Please continue below listed cardiac meds. Cardiac meds Bisoprolol 5 mg daily Eliquis 5 mg p.o. twice daily Enalapril/hydrochlorothiazide 10/25 mg p.o. daily Prasalvatore
--- NOTE | 2023-02-16 09:28 | US_ITS ---
FINAL REPORT CLINICAL HISTORY: pancreatitis, unknown etiology FINDINGS: Sonographic images of the right upper quadrant were obtained. The pancreas is partially obscured. There is coarsened hepatic echotexture of uncertain significance, may be related to cirrhosis. The gallbladder appears normal without evidence of gallstones. The common hepatic duct measures 6 mm, normal for age. The portal vein is dilated measuring 14 mm. Multiple small right renal cysts are identified. IMPRESSION: Findings may be related to cirrhosis. Right renal cysts. Dilated portal vein. Reviewed, Interpreted and Dictated by Grover Maxwell III, MD Transcribed by Ines Reina Authenticated and . [facility]
[2023-02-16 11:16] LABS: POC Glucose,Bedside 107 (70-110)
--- NOTE | 2023-02-16 12:50 | PC.NURSE ---
Patient off floor to U/S at this time.
--- NOTE | 2023-02-16 13:12 | PC.NURSE ---
patient back on floor.
[2023-02-16 15:17] VITALS: BP 132/63; PULSE 60; RESP 18; TEMP 36.5; O2SAT 94
[2023-02-16 16:04] LABS: POC Glucose,Bedside 149 (70-110)
--- NOTE | 2023-02-16 16:22 | PC.NURSE ---
PT has had no changes since last assessment this shift. Lungs CTA, bowel sounds active in all 4 quadrants. Pt pain has been well managed throughout this shift With ordered PRN pain medication. VSS as charted
--- NOTE | 2023-02-16 18:25 | PC.NURSE ---
all charting and care done under my direct supervision
[2023-02-16 20:00] VITALS: BP 97/50; PULSE 51; RESP 19; TEMP 36.5; O2SAT 95
[2023-02-16 20:37] LABS: POC Glucose,Bedside 101 (70-110)
--- NOTE | 2023-02-16 20:48 | PC.NURSE ---
hypoactive, faint BS in all 4 quads. pt reports no bm for several days, and unable to pass gas. assessed pain in abd, no reports of pain. abd in round, firm, and non-tender. pain 0 out 10.
--- NOTE | 2023-02-17 01:54 | PC.NURSE ---
Addendum entered by Galindo Sánchez RN 02/17/23 03:54: active BS in all 4 quads Original Note: pt has been up t/o the night with c/o being unable to have a bm. tx per sep. pt has ambulated hallway x4. drank 360ml of prune juice. passed minimal gas.
--- NOTE | 2023-02-17 02:04 | XR_ITS ---
PROCEDURE INFORMATION: Exam: XR Abdomen Exam date and time: 02/17/2023 2:09 AM Age: 82 years old Clinical indication: Abdominal pain; Additional info: Abd pain constipation TECHNIQUE: Imaging protocol: Radiologic exam of the abdomen. Views: Frontal supine view of the abdomen. 1 View. Total images: 3 COMPARISON: CT ABDOMEN PELVIS W CON 02/15/2023 3:18 AM FINDINGS: Heart/Mediastinum: Normal heart size. Lungs: Left basilar atelectasis. Gastrointestinal tract: Nonspecific, nonobstructive bowel gas distribution. Moderate colonic stool burden. No fecal impaction within the rectum. There are few gas-filled nondilated scattered segments of small bowel. Intraperitoneal space: Evaluation for free air compromised by recumbent patient positioning. Bones/joints: Mild degenerative changes thoracolumbar spine and both hips. No acute osseous abnormality. Soft tissues: Peritoneal fascial planes are maintained. IMPRESSION: 1. Nonspecific, nonobstructive bowel gas distribution. 2. Moderate colonic stool burden.
[2023-02-17 04:00] VITALS: BP 121/66; PULSE 55; RESP 19; TEMP 36.6; O2SAT 95; BMI 31.7
[2023-02-17 06:47] LABS: POC Glucose,Bedside 160 (70-110)
[2023-02-17 06:55] LABS: Basophils # 0.1 K/mm3 (0-0.2); Basophils % 0.5 % (0.1-2.0); Eosinophils # 0.3 K/mm3 (0.0-0.4); Eosinophils % 2.9 % (0.1-12.0); Hematocrit 49.6 % (42.0-52.0); Hemoglobin 16.1 g/dL (14.1-18.0); Lymphocytes # 1.5 K/mm3 (0.7-4.5); Lymphocytes % 14.7 % (10-50); Mean Corpuscular HGB Conc 32.4 g/dL (31.8-35.4); Mean Corpuscular Hemoglobin 30.4 pg (27.0-31.2); Mean Corpuscular Volume 93.9 fl (80-94); Mean Platelet Volume 7.5 fl (7.4-10.4); Monocytes # 0.9 K/mm3 (0.1-1.0); Neutrophils # 7.6 K/mm3 (1.8-7.8); Neutrophils % 72.9 % (37.0-80.0); Platelet Count 396 K/mm3 (142-424); Red Blood Count 5.29 M/mm3 (4.60-6.20); Red Cell Distribution Width 15.4 % (11.5-17.5); White Blood Count 10.5 K/mm3 (4.8-10.8)
[2023-02-17 07:01] LABS: Chloride 97 mmol/L (98-107)
[2023-02-17 07:02] LABS: Potassium 3.9 mmoL/L (3.5-5.1); Sodium 135 mmol/L (136-145)
[2023-02-17 07:04] LABS: Alanine Aminotransferase 32 U/L (12-78); Albumin Level 3.9 g/dl (3.5-5.0); Albumin/Globulin Ratio 1.1 (1.1-1.8); Alkaline Phosphatase 91 U/L (38-126); Aspartate Amino Transferase 27 U/L (17-59); Bilirubin,Total 0.4 mg/dl (0.2-1.3); Blood Urea Nitrogen 14 mg/dl (9-20); Creatinine Clearance Estimated 84 mL/min (50-200); Estimated Glomerular Filt Rate 109 ml/min (>60); GFR (African American) 131 ML/MIN (>60); Globulin 3.5 g/dL (1.3-3.2); Total Protein,Serum 7.4 g/dl (6.3-8.2)
[2023-02-17 07:05] LABS: Anion Gap 9.9 mEq/L (5-15); Carbon Dioxide 32 mmol/L (22.0-30.0); Glucose 122 mg/dl (74-100)
[2023-02-17 07:19] VITALS: BP 141/92; PULSE 68; RESP 18; TEMP 36.5; O2SAT 96
--- NOTE | 2023-02-17 08:49 | EXP.PN ---
Subjective *Date: 02/17/23 *Time: 12:40 Interval history: The patient continues to have abdominal pain and back pain, unchanged from yesterday he hasn't had a bowel movement in over 5 days Denies nausea Exam Data for Last 24 hours Vital signs and Labs for Last 24 Hours: Temp Pulse Resp BP Pulse Ox O2 Del Method 97.7 F 68 18 141/92 H 96 Room Air 02/17/23 07:19 02/17/23 07:19 02/17/23 07:19 02/17/23 07:19 02/17/23 07:19 02/17/23 08:34 Laboratory Results - last 24 hr 02/16/23 11:08: POC Glucose 107 02/16/23 15:56: POC Glucose 149 H 02/16/23 20:20: POC Glucose 101 02/17/23 05:37: POC Glucose 160 H 02/17/23 06:43: WBC 10.5 D, RBC 5.29, Hgb 16.1, Hct 49.6, MCV 93.9, MCH 30.4, MCHC 32.4, RDW 15.4, Plt Count 396, MPV 7.5, Neut % (Auto) 72.9, Lymph % (Auto) 14.7, [place] % (Auto) 9.0, Eos % (Auto) 2.9, Baso % (Auto) 0.5, Neut # (Auto) 7.6, Lymph # (Auto) 1.5, [place] # (Auto) 0.9, Eos # (Auto) 0.3, Baso # (Auto) 0.1, Sodium 135 L, Potassium 3.9, Chloride 97 L, Carbon Dioxide 32 H, Anion Gap 9.9, BUN 14 D, Creatinine 0.70, Estimated Creat Clear 84, Estimated GFR 109, Est GFR ( Amer) 131, Glucose 122 H, Calcium 9.0, Total Bilirubin 0.4, AST 27, ALT 32, Alkaline Phosphatase 91, Total Protein 7.4, Albumin 3.9, Globulin 3.5 H, Albumin/Globulin Ratio 1.1 I & O for Last 24 hours: Intake & Output 02/14/23 02/15/23 02/16/23 02/17/23 23:59 23:59 23:59 23:59 Intake Total 480 / 480 2175 / 2615 740 / 740 Output Total 0 / 0 1065 / 1065 1450 / 1450 Balance 480 / 480 1110 / 1550 -710 / -710 Weight 100.499 kg 100.499 kg 100.499 kg Constitutional Constitutional: no acute distress *Routine HEENT Exam Head: Present normocephalic Eye: Present EOMI and PERRL ENT: Present mucous membranes moist *Routine Neck Exam Neck: Present supple; Absent lymphadenopathy *Routine Respiratory Exam Respiratory: Present CTA bilaterally *Routine Cardiovascular Exam Cardiovascular: Present RRR *Routine Abdominal Exam Abdominal: Present soft and normoactive bowel sounds; Absent tenderness *Routine Extremities Exam Extremities: Absent cyanosis, clubbing or edema *Routine Skin Exam Skin: Present warm; Absent rash *Routine Neurological Exam Neurological: Present alert and oriented X3 Assessment and Plan *Assessment and plan (1) Acute pancreatitis: Status: Acute Qualifiers: Acute pancreatitis complication: unspecified Pancreatitis type: unspecified pancreatitis type Qualified Code(s): K85.90 - Acute pancreatitis without necrosis or infection, unspecified Category: Medical Code(s): K85.90 - Acute pancreatitis without necrosis or infection, unspecified (2) Acute dyspnea: Status: Acute Category: Medical Code(s): R06.00 - Dyspnea, unspecified (3) Hyponatremia: Status: Acute Category: Medical Code(s): E87.1 - Hypo-osmolality and hyponatremia (4) Aortic valve sclerosis: Status: Acute Category: Medical Code(s): I35.8 - Other nonrheumatic aortic valve disorders (5) Atrial fibrillation: Status: Acute Qualifiers: Atrial fibrillation type: unspecified Qualified Code(s): I48.91 - Unspecified atrial fibrillation Category: Medical Code(s): I48.91 - Unspecified atrial fibrillation (6) Diabetes mellitus: Status: Acute Qualifiers: Diabetes mellitus type: type 2 Diabetes mellitus licensed audiologist insulin use: without licensed audiologist use Diabetes mellitus complication status: without complication Qualified Code(s): E11.9 - Type 2 diabetes mellitus without complications Category: Medical Code(s): E11.9 - Type 2 diabetes mellitus without complications (7) Hypertension: Status: Acute Qualifiers: Hypertension type: unspecified Qualified Code(s): I10 - Essential (primary) hypertension Category: Medical Code(s): I10 - Essential (primary) hypertension Plan Mack Bower i
[2023-02-17 11:53] LABS: POC Glucose,Bedside 130 (70-110)
[2023-02-17 13:00] VITALS: RESP 16
[2023-02-17 15:10] VITALS: BP 137/71; PULSE 67; RESP 16; TEMP 36.7; O2SAT 98
[2023-02-17 17:26] LABS: POC Glucose,Bedside 129 (70-110)
[2023-02-17 20:00] VITALS: BP 98/38; PULSE 55; RESP 19; TEMP 36.8; O2SAT 94
[2023-02-17 20:34] LABS: POC Glucose,Bedside 148 (70-110)
[2023-02-18 04:00] VITALS: BP 163/73; PULSE 51; RESP 18; TEMP 36.5; O2SAT 97; BMI 32.2
[2023-02-18 06:38] LABS: POC Glucose,Bedside 113 (70-110)
[2023-02-18 06:55] LABS: Eosinophils # 0.4 K/mm3 (0.0-0.4); Lymphocytes % 22.7 % (10-50); Mean Platelet Volume 7.4 fl (7.4-10.4); Red Cell Distribution Width 15.5 % (11.5-17.5)
[2023-02-18 07:02] LABS: Basophils % 0.3 % (0.1-2.0); Chloride 99 mmol/L (98-107); Eosinophils % 4.3 % (0.1-12.0); Lymphocytes # 1.9 K/mm3 (0.7-4.5); Mean Corpuscular HGB Conc 31.3 g/dL (31.8-35.4); Mean Corpuscular Hemoglobin 29.4 pg (27.0-31.2); Mean Corpuscular Volume 94.1 fl (80-94); Monocytes # 0.7 K/mm3 (0.1-1.0); Monocytes % 8.3 % (1.7-9.3); Neutrophils # 5.3 K/mm3 (1.8-7.8); Neutrophils % 64.4 % (37.0-80.0); Platelet Count 363 K/mm3 (142-424); Red Blood Count 4.78 M/mm3 (4.60-6.20); Sodium 134 mmol/L (136-145); White Blood Count 8.2 K/mm3 (4.8-10.8)
[2023-02-18 07:03] LABS: Potassium 3.8 mmoL/L (3.5-5.1)
[2023-02-18 07:04] LABS: Hemoglobin 14.1 g/dL (14.1-18.0)
[2023-02-18 07:05] LABS: Alanine Aminotransferase 25 U/L (12-78); Alkaline Phosphatase 75 U/L (38-126); Anion Gap 6.8 mEq/L (5-15); Aspartate Amino Transferase 22 U/L (17-59); Bilirubin,Total 0.2 mg/dl (0.2-1.3); Blood Urea Nitrogen 12 mg/dl (9-20); Calcium 8.6 mg/dl (8.4-10.2); Carbon Dioxide 32 mmol/L (22.0-30.0); Creatinine Clearance Estimated 85 mL/min (50-200); Estimated Glomerular Filt Rate 130 ml/min (>60); GFR (African American) 157 ML/MIN (>60); Glucose 124 mg/dl (74-100); Lipase 77 U/L (23-300)
[2023-02-18 07:06] LABS: Albumin Level 3.2 g/dl (3.5-5.0); Albumin/Globulin Ratio 1.1 (1.1-1.8); Globulin 2.8 g/dL (1.3-3.2)
[2023-02-18 08:00] VITALS: BP 158/81; PULSE 56; RESP 18; TEMP 36.6; O2SAT 94
--- NOTE | 2023-02-18 09:37 | EXP.PN ---
Subjective *Date: 02/18/23 *Time: 09:37 Interval history: The patient continues to have abdominal pain and back pain, unchanged from yesterday. He hasn't had a bowel movement Exam Data for Last 24 hours Vital signs and Labs for Last 24 Hours: Temp Pulse Resp BP Pulse Ox O2 Del Method 97.8 F 56 L 18 158/81 H 94 L Room Air 02/18/23 08:00 02/18/23 08:00 02/18/23 08:00 02/18/23 08:00 02/18/23 08:00 02/18/23 08:00 Laboratory Results - last 24 hr 02/17/23 11:45: POC Glucose 130 H 02/17/23 16:56: POC Glucose 129 H 02/17/23 20:26: POC Glucose 148 H 02/18/23 05:55: POC Glucose 113 H 02/18/23 06:35: WBC 8.2, RBC 4.78, Hgb 14.1 D, Hct 45.0, MCV 94.1 H, MCH 29.4, MCHC 31.3 L, RDW 15.5, Plt Count 363, MPV 7.4, Neut % (Auto) 64.4, Lymph % (Auto) 22.7, [place] % (Auto) 8.3, Eos % (Auto) 4.3, Baso % (Auto) 0.3, Neut # (Auto) 5.3, Lymph # (Auto) 1.9, [place] # (Auto) 0.7, Eos # (Auto) 0.4, Baso # (Auto) 0.0, Sodium 134 L, Potassium 3.8, Chloride 99, Carbon Dioxide 32 H, Anion Gap 6.8, BUN 12, Creatinine 0.60 L, Estimated Creat Clear 85, Estimated GFR 130, Est GFR ( Amer) 157, Glucose 124 H, Calcium 8.6, Total Bilirubin 0.2, AST 22, ALT 25, Alkaline Phosphatase 75, Total Protein 6.0 L, Albumin 3.2 L D, Globulin 2.8, Albumin/Globulin Ratio 1.1, Lipase 77 I & O for Last 24 hours: Intake & Output 02/15/23 02/16/23 02/17/23 02/18/23 23:59 23:59 23:59 23:59 Intake Total 480 / 480 2175 / 2615 1280 / 1632 832 / 832 Output Total 0 / 0 1065 / 1065 1750 / 1750 0 / 0 Balance 480 / 480 1110 / 1550 -470 / -118 832 / 832 Weight 100.499 kg 100.499 kg 100.499 kg 102.104 kg Constitutional Constitutional: no acute distress *Routine HEENT Exam Head: Present normocephalic Eye: Present EOMI and PERRL ENT: Present mucous membranes moist *Routine Neck Exam Neck: Present supple; Absent lymphadenopathy *Routine Respiratory Exam Respiratory: Present CTA bilaterally *Routine Cardiovascular Exam Cardiovascular: Present RRR *Routine Abdominal Exam Abdominal: Present soft and normoactive bowel sounds; Absent tenderness, rebound or guarding *Routine Extremities Exam Extremities: Absent cyanosis, clubbing or edema *Routine Skin Exam Skin: Present warm; Absent rash *Routine Neurological Exam Neurological: Present alert and oriented X3 Assessment and Plan *Assessment and plan (1) Acute pancreatitis: Status: Acute Qualifiers: Acute pancreatitis complication: unspecified Pancreatitis type: unspecified pancreatitis type Qualified Code(s): K85.90 - Acute pancreatitis without necrosis or infection, unspecified Category: Medical Code(s): K85.90 - Acute pancreatitis without necrosis or infection, unspecified (2) Acute dyspnea: Status: Acute Category: Medical Code(s): R06.00 - Dyspnea, unspecified (3) Hyponatremia: Status: Acute Category: Medical Code(s): E87.1 - Hypo-osmolality and hyponatremia (4) Aortic valve sclerosis: Status: Acute Category: Medical Code(s): I35.8 - Other nonrheumatic aortic valve disorders (5) Atrial fibrillation: Status: Acute Qualifiers: Atrial fibrillation type: unspecified Qualified Code(s): I48.91 - Unspecified atrial fibrillation Category: Medical Code(s): I48.91 - Unspecified atrial fibrillation (6) Diabetes mellitus: Status: Acute Qualifiers: Diabetes mellitus type: type 2 Diabetes mellitus termite control servicer insulin use: without termite control servicer use Diabetes mellitus complication status: without complication Qualified Code(s): E11.9 - Type 2 diabetes mellitus without complications Category: Medical Code(s): E11.9 - Type 2 diabetes mellitus without complications (7) Hypertension: Status: Acute Qualifiers: Hypertension type: unspecified Qualified Code(s): I10 - Essential (primary) hypertension Category: Medical Code(s): I10 - Essential
[2023-02-18 11:29] VITALS: BMI 32.2
[2023-02-18 12:30] LABS: POC Glucose,Bedside 124 (70-110)
[2023-02-18 15:51] VITALS: BP 132/62; PULSE 54; RESP 22; TEMP 36.6; O2SAT 95
--- NOTE | 2023-02-18 16:45 | PC.NURSE ---
pt has sit in chair and side of bed most of the day. pt ambulated in and outside of room multiple times through out shift
[2023-02-18 17:14] LABS: POC Glucose,Bedside 131 (70-110)
--- NOTE | 2023-02-18 17:40 | XR_ITS ---
PROCEDURE INFORMATION: Exam: XR Abdomen Exam date and time: 02/18/2023 6:37 PM Age: 82 years old Clinical indication: Abdominal pain; Generalized; Patient HX: Constipation for a week TECHNIQUE: Imaging protocol: Radiologic exam of the abdomen. Views: Frontal supine view of the abdomen. 1 View. Portable AP exam. Two images received. COMPARISON: CR XR KUB 02/17/2023 2:09 AM FINDINGS: Gastrointestinal tract: Mild gaseous distention of the transverse colon and of some left upper quadrant small intestinal loops. No significantly dilated loops, as visualized. No significant fecal retention seen. Vasculature: Some atherosclerotic calcified plaques in the abdomen, pelvis and extending into lower extremities. Bones/joints: Mild spinal degenerative changes.No acute fracture or dislocation. Soft tissues: No acute findings in the soft tissues, as visualized. IMPRESSION: 1. Nonobstructive bowel gas pattern; though there is slight gaseous distention of the transverse colon and some left upper quadrant small bowel loops, no significantly dilated loops are seen. This could be slight ileus or enteritis. 2. Mild fecal material and bowel gas, no significant fecal retention seen to suggest severe constipation or obstipation. 3. Additional nonemergency and chronic findings as above.
[2023-02-18 20:00] VITALS: BP 130/67; PULSE 57; RESP 18; TEMP 36.9; O2SAT 95
[2023-02-18 21:11] LABS: POC Glucose,Bedside 124 (70-110)
--- NOTE | 2023-02-18 23:20 | PC.NURSE ---
PT HAD AN INCONT. STOOL AND GOT STOOL ON HIS PJ PANTS, SHIRT, AND SOCKS; PT HAD ALEJANDRINA SRNA THROW THOSE CLOTHING ITEMS AWAY. THIS RN IS AWARE OF THIS EVENT. PT GOT A FULL SHOWER AND LINEN CHANGE.
[2023-02-19 04:00] VITALS: BP 144/77; PULSE 61; RESP 18; TEMP 36.6; O2SAT 96; BMI 31.9
[2023-02-19 07:06] LABS: POC Glucose,Bedside 149 (70-110)
[2023-02-19 07:35] VITALS: BP 126/60; PULSE 66; RESP 18; TEMP 37; O2SAT 94
[2023-02-19 08:00] VITALS: O2SAT 97
--- NOTE | 2023-02-19 08:47 | EXP.DC.SUM ---
General Admission date:: 02/15/23 Discharge date: 02/19/23 HPI HPI HPI: This is 82-year-old male with PMHx of recent onset A-fib on blood thinner, hypertension, diabetes, aortic valve sclerosis, melanoma, Diabetes, presented with multiple complaints. Patient reports approximate 2 to 3 hours of worsening shortness of breath prompting presentation. He reports that he had a similar episode approximate 10 days ago but was not given a full diagnosis. He is currently wearing a Holter monitor and has scheduled follow-up with Dr. Franks tomorrow. He has reported for intermittent abdominal pain on epigastric, that migrates to the back. Nothing tried at home made him feel better. Patient lives alone. Admitted for further management. Hospital Course Hospital Course Hospital Course: Mack Bower is a 82 year old male with a past medical history of skin cancer s/p mohs, type 2 diabetes mellitus, hypertension, hyperlipidemia, atrial fibrillation on Eliquis and asthma. He presented with a few days of back pain and shortness of breath and was admitted on 02/15 with acute pancreatitis. #constipation #acute pancreatitis He doesn't have any history of alcoholism and denies any changes in his diet or medications. No history of cholecystectomy. US abdomen did not reveal any choledocholithiaisis. lipase level has returned to normal limits. His diclofenac was discontinued and he was discharged on new medication of tylenol. he will need to follow up with his pcp in 1 week. Hospital course was prolonged because the patient was unable to have a bowel movement. after taking laxatives and receiving enemas the patient had a large bowel movement and his abdominal discomfort significantly subsided. he is to continue his metamucil and was discharged with prn miralax. He has an outpatient left heart cath scheduled from 02/24; the patient will follow up in Cardiology clinic 1 week post cath. DVT ppx: already on Eliquis for anticoagulation Full code Exam Data for Last 24 hours Vital signs and Labs for Last 24 Hours: Temp Pulse Resp BP Pulse Ox O2 Del Method 98.6 F 66 18 126/60 94 L Room Air 02/19/23 07:35 02/19/23 07:35 02/19/23 07:35 02/19/23 07:35 02/19/23 07:35 02/19/23 07:35 Laboratory Results - last 24 hr 02/18/23 12:17: POC Glucose 124 H 02/18/23 17:03: POC Glucose 131 H 02/18/23 20:17: POC Glucose 124 H 02/19/23 06:41: POC Glucose 149 H I & O for Last 24 hours: Intake & Output 02/16/23 02/17/23 02/18/23 02/19/23 23:59 23:59 23:59 23:59 Intake Total 2175 / 2615 1280 / 1632 1312 / 1312 480 / 480 Output Total 1065 / 1065 1750 / 1750 0 / 200 400 / 400 Balance 1110 / 1550 -470 / -118 1312 / 1112 80 / 80 Weight 100.499 kg 100.499 kg 102.104 kg 101.179 kg Constitutional Constitutional: no acute distress *Routine HEENT Exam Head: Present normocephalic Eye: Present EOMI and PERRL ENT: Present mucous membranes moist *Routine Neck Exam Neck: Present supple; Absent lymphadenopathy *Routine Respiratory Exam Respiratory: Present CTA bilaterally *Routine Cardiovascular Exam Cardiovascular: Present RRR *Routine Abdominal Exam Abdominal: Present soft and normoactive bowel sounds; Absent tenderness, rebound or guarding *Routine Extremities Exam Extremities: Absent cyanosis, clubbing or edema *Routine Skin Exam Skin: Present warm; Absent rash *Routine Neurological Exam Neurological: Present alert and oriented X3 Results Data Completed and Pending Labs on day of discharge: Labs from last 24 hours 02/19/23 02/18/23 02/18/23 06:41 20:17 17:03 POC Glucose 149 H 124 H 131 H 02/18/23 12:17 POC Glucose 124 H DS: Diagnosis Discharge Diagnosis (1) Acute pancreatitis: Status: Acute Code(s): K85.90 - Acute pancreatitis without necrosis or infection, unspecified Qualifiers: Acute pancreatitis complication: unspecified Pancreatitis type: unspecified pancreatitis type Qualified
--- NOTE | 2023-02-19 08:59 | HMH.PHAINT1 ---
Pharmacy Intervention Comments: Discharge medications were discussed with patient and patient's . -Acetaminophen -Miralax Andry Richards, PharmD student
--- NOTE | 2023-02-23 14:00 | CARE MANAGER ---
Called patient to discuss recent discharge. He stated he is doing well, has started new medication and is aware of scheduled f/u appts. He had no concerns at time of call.
== END 2023-02-19 09:52 | disposition home or self-care (01) | DRG 439 ==
LOC: ER 02:24 → 2ND 05:26
PROVIDERS: Internal Medicine; Nurse Practitioner Family; Admitting Provider Internal Medicine Adolescent Medicine; Emergency Provider Emergency Medicine; PCP Internal Medicine; Visit Provider Internal Medicine Adolescent Medicine
DX: K85.90 Acute pancreatitis without necrosis or infection, unspecified (principal); E87.1 Hypo-osmolality and hyponatremia; I48.91 Unspecified atrial fibrillation; I10 Essential (primary) hypertension; E11.9 Type 2 diabetes mellitus without complications; I35.8 Other nonrheumatic aortic valve disorders; M54.9 Dorsalgia, unspecified; G89.29 Other chronic pain; Z85.820 Personal history of malignant melanoma of skin; M06.9 Rheumatoid arthritis, unspecified; I25.10 Atherosclerotic heart disease of native coronary artery without angina pectoris; K59.00 Constipation, unspecified
CPT/HCPCS: 36415; 71045; 74018; 74177; 76705; 80053; 80061; 82962; 83690; 83735; 83880; 84484; 85025; 85378; 93005; 99285; J2405; J2543; Q9967

== ENCOUNTER 2023-03-05 08:28 | Day surgery (SDC) | payer MEDICARE, BC, SELFPAY ==
[2023-03-05] VITALS (11 sets, daily range): BP systolic 116–153; BP diastolic 55–89; PULSE 49–67; RESP 16–18; O2SAT 94–99; BMI 31.7
--- NOTE | 2023-03-05 | IR_ITS ---
APPROVED REPORT Patient Location: Outpatient PROCEDURES Left heart catheterization Left ventriculogram Selective coronary angiogram INDICATION Angina pectoris, Abnormal Myoview, Abnormal echocardiogram with regional wall motion abnormality Informed consent was obtained prior to the procedure. COMPLICATIONS None Estimated Blood Loss: Less than 10 mls TECHNIQUE One percent lidocaine used to anesthetize the right anterior aspect of the wrist. The right radial artery was accessed via the Seldinger technique. A 6 Telugu sheath was placed in the right radial artery. 2.5 mg of Verapamil, 800 mcg of nitroglycerin, 1mg Lidocaine and 5000 U Heparin were given through the arterial sheath. The papa catheter was also used to perform left heart catheterization, left ventriculogram and selective coronary angiogram. At the end of the procedure the sheath was removed good hemostasis was achieved using Traclet band, patient was transferred to the postop holding area in stable condition. ANGIOGRAPHIC RESULTS The left main artery Normal The left anterior descending artery Has mild proximal and mid vessel 20 to 30% luminal irregularities The circumflex artery Large and dominant with mild diffuse 10 to 20% luminal irregularities The right coronary artery Vestigial with proximal 60 to 70% stenosis The BELL ventriculogram reveals Normal 65% The left ventricular end-diastolic pressure 20 mmHg IMPRESSION Mild diffuse nonflow limiting coronary artery disease in the LAD and dominant right coronary artery Moderate to severe stenosis in a vestigial right coronary artery which does not supply the left ventricle Normal ejection fraction Elevated LVEDP PLAN 1. Continue medical management for coronary disease and diastolic dysfunction Electronically signed by : Reza Franks MD 03/05/2023 10:34:44
[2023-03-05 09:12] LABS: Basophils # 0.1 K/mm3 (0-0.2); Basophils % 0.6 % (0.1-2.0); Eosinophils # 0.2 K/mm3 (0.0-0.4); Eosinophils % 2.4 % (0.1-12.0); Hematocrit 45.7 % (42.0-52.0); Hemoglobin 14.6 g/dL (14.1-18.0); Lymphocytes % 20.8 % (10-50); Mean Corpuscular HGB Conc 31.9 g/dL (31.8-35.4); Mean Corpuscular Hemoglobin 30.2 pg (27.0-31.2); Mean Corpuscular Volume 94.7 fl (80-94); Mean Platelet Volume 7.7 fl (7.4-10.4); Monocytes # 0.9 K/mm3 (0.1-1.0); Monocytes % 9.2 % (1.7-9.3); Neutrophils # 6.4 K/mm3 (1.8-7.8); Platelet Count 415 K/mm3 (142-424); Red Blood Count 4.83 M/mm3 (4.60-6.20); Red Cell Distribution Width 15.5 % (11.5-17.5); White Blood Count 9.5 K/mm3 (4.8-10.8)
[2023-03-05 09:17] LABS: Anion Gap 13.4 mEq/L (5-15); Blood Urea Nitrogen 9 mg/dl (9-20); Calcium 8.7 mg/dl (8.4-10.2); Carbon Dioxide 28 mmol/L (22.0-30.0); Chloride 102 mmol/L (98-107); Creatinine Clearance Estimated 84 mL/min (50-200); Estimated Glomerular Filt Rate 130 ml/min (>60); GFR (African American) 157 ML/MIN (>60); Glucose 134 mg/dl (74-100); Potassium 3.4 mmoL/L (3.5-5.1); Sodium 140 mmol/L (136-145)
== END 2023-03-05 13:33 | disposition home or self-care (01) ==
PROVIDERS: PCP Internal Medicine; Visit Provider Internal Medicine
DX: I25.118 Atherosclerotic heart disease of native coronary artery with other forms of angina pectoris (principal); I10 Essential (primary) hypertension; Z79.01 Long term (current) use of anticoagulants; Z79.899 Other long term (current) drug therapy; E87.6 Hypokalemia; H49.12 Fourth [trochlear] nerve palsy, left eye; Z85.820 Personal history of malignant melanoma of skin; I48.91 Unspecified atrial fibrillation
CPT/HCPCS: 80048; 85025; 93458; 99152; C1725; C1769; J1644; Q9967

== ENCOUNTER → 2023-03-17 07:32 | Outpatient (CLI) | payer MEDICARE, BC, SELFPAY | PROVIDERS: PCP Internal Medicine; Visit Provider Internal Medicine | DX: K85.90 Acute pancreatitis without necrosis or infection, unspecified (principal) ==

== ENCOUNTER → 2023-03-23 10:56 | Outpatient (CLI) | payer MEDICARE, BC, SELFPAY ==
--- NOTE | 2023-03-23 11:07 | XR_ITS ---
FINAL REPORT CLINICAL HISTORY: LT SIDED NECK PAIN FINDINGS: CERVICAL SPINE Six views demonstrate no acute fracture. Mild degenerative changes are present. There is mild anterolisthesis of C2 on 3 and C3 on 4. There is no evidence of neural foraminal narrowing. IMPRESSION: Mild degenerative changes. Reviewed, Interpreted and Dictated by Grover Maxwell III, MD Transcribed by Ines Reina Authenticated and [facility]
== END ==
PROVIDERS: PCP Internal Medicine; Visit Provider Internal Medicine
DX: M54.2 Cervicalgia (principal)
CPT/HCPCS: 72050

== ENCOUNTER → 2023-03-30 12:31 | Outpatient (CLI) | payer MEDICARE, BC, SELFPAY | PROVIDERS: PCP Internal Medicine; Visit Provider Specialist | DX: R06.83 Snoring; E66.9 Obesity, unspecified; Z68.32 Body mass index [BMI] 32.0-32.9, adult; G47.30 Sleep apnea, unspecified | CPT/HCPCS: G0399 ==

== ENCOUNTER → 2023-03-31 13:04 | Outpatient (CLI) | payer MEDICARE, BC, SELFPAY ==
[2023-03-31 13:33] LABS: Basophils % 0.3 % (0.1-2.0); Eosinophils # 0.2 K/mm3 (0.0-0.4); Eosinophils % 1.3 % (0.1-12.0); Hematocrit 43.5 % (42.0-52.0); Hemoglobin 13.4 g/dL (14.1-18.0); Lymphocytes % 6.9 % (10-50); Mean Corpuscular HGB Conc 30.9 g/dL (31.8-35.4); Mean Corpuscular Hemoglobin 29.6 pg (27.0-31.2); Mean Corpuscular Volume 95.6 fl (80-94); Mean Platelet Volume 8.7 fl (7.4-10.4); Monocytes % 6.6 % (1.7-9.3); Neutrophils # 12.6 K/mm3 (1.8-7.8); Neutrophils % 84.9 % (37.0-80.0); Platelet Count 469 K/mm3 (142-424); Red Blood Count 4.55 M/mm3 (4.60-6.20); Red Cell Distribution Width 16.2 % (11.5-17.5); White Blood Count 14.9 K/mm3 (4.8-10.8)
[2023-03-31 13:49] LABS: Creatinine,Urine Random 32 mg/dL (Not Estab.)
[2023-03-31 13:50] LABS: Microalbumin/Creatinine Ratio 210.9
[2023-03-31 14:06] LABS: Erythrocyte Sedimentation Rate 38 mm/hr (0-20)
[2023-03-31 14:53] LABS: Alanine Aminotransferase 20 U/L (12-78); Albumin Level 3.3 g/dl (3.5-5.0); Albumin/Globulin Ratio 1.1 (1.1-1.8); Alkaline Phosphatase 77 U/L (38-126); Amylase 103 U/L (30-110); Anion Gap 14.8 mEq/L (5-15); Aspartate Amino Transferase 20 U/L (17-59); Bilirubin,Total 0.4 mg/dl (0.2-1.3); Blood Urea Nitrogen 14 mg/dl (9-20); Carbon Dioxide 28 mmol/L (22.0-30.0); Chloride 98 mmol/L (98-107); Chol/HDL Ratio 4.2 (1-3.5); Cholesterol 150 mg/dl (140-200); Estimated Glomerular Filt Rate 130 ml/min (>60); GFR (African American) 157 ML/MIN (>60); Glucose 148 mg/dl (74-100); HDL Cholesterol 36 mg/dl (40-60); Potassium 3.8 mmoL/L (3.5-5.1); Sodium 137 mmol/L (136-145); Total Protein,Serum 6.3 g/dl (6.3-8.2); Triglycerides 142 mg/dl (30-150); VLDL Cholesterol 28 mg/dL (0-40)
[2023-03-31 14:54] LABS: Hemoglobin A1C 7.1 % (4.0-6.0)
[2023-03-31 15:03] LABS: C-Reactive Protein 21.8 mg/L (0-4); Direct LDL Cholesterol 86.64 mg/dL (100-129)
[2023-03-31 15:24] LABS: Prostate Specific Ag Screen 0.2 ng/ml (0.0-4.0)
== END ==
PROVIDERS: PCP Internal Medicine; Visit Provider Internal Medicine
DX: E11.42 Type 2 diabetes mellitus with diabetic polyneuropathy (principal); I10 Essential (primary) hypertension; E78.5 Hyperlipidemia, unspecified; I48.91 Unspecified atrial fibrillation; M05.79 Rheumatoid arthritis with rheumatoid factor of multiple sites without organ or systems involvement; M47.812 Spondylosis without myelopathy or radiculopathy, cervical region; M79.18 Myalgia, other site; Z12.5 Encounter for screening for malignant neoplasm of prostate; Z79.84 Long term (current) use of oral hypoglycemic drugs
CPT/HCPCS: 80053; 80061; 82043; 82150; 82570; 83036; 85025; 85651; 86140; G0103

== ENCOUNTER → 2023-04-26 13:14 | Outpatient (CLI) | payer MEDICARE, BC, SELFPAY ==
--- OUTSIDE RECORDS SUMMARY | 2023-04-26 13:17 | XMS_ITS | Continuity of Care Document ---
Author Name Unknown Organization [facility] Address [address] [id number] Phone Care Team Providers Care It Training Specialist Name Role Phone Ok Richards MD Unavailable Unavailable Allergies, Adverse Reactions, Alerts Substance Reaction Status Criticality No Known Allergies Active No Inform ation Medications Medication Instructions Dosage Effective Dates (start - stop) Status Comments prednisone 1 mg tablet take 2 tablet by oral route every day 2 MG - Active methotrexate sodium 2.5 mg tablet TAKE 8 TABLETS BY MOUTH ONCE A WEEK FOR RHEUMATOID ARTHRITIS - Active folic acid 1 mg tablet take 1 tablet by oral route every day 1 MG - Active ADVAIR DISKUS (unknown strength) take 2 puffs once a day as needed Not Available - Active Eliquis 5 mg tablet take 1 tablet by oral route 2 times every day 5 MG - Active pravastatin 40 mg tablet take 1 tablet by oral route every day 40 MG - Active amlodipine 10 mg tablet take 1 tablet by oral route every day 10 MG - Active Oseni 25 mg-30 mg tablet
--- NOTE | 2023-04-26 13:54 | MR_ITS ---
FINAL REPORT CLINICAL HISTORY: Eval for CVA, metastasis 21ml prohance injected COMPARISON: 01/29/2023 FINDINGS: Multiplanar MR imaging of the brain was performed without and with contrast. There is no evidence of intracranial hemorrhage or mass. No abnormal extra-axial fluid collection is seen. The ventricular size is within normal limits. There is no evidence of shift of the midline structures. The posterior fossa and brainstem have an unremarkable appearance. No area of abnormal restricted diffusion is identified. No abnormal contrast enhancement is seen. Normal major vessel vascular flow voids are noted. IMPRESSION: No acute intracranial abnormality identified. Stable atrophy and microvascular ischemic change. Reviewed, Interpreted and Dictated by Grover Maxwell III, MD Transcribed by Jaelyn Goff Authenticated and [facility]
[2023-04-26 14:19] LABS: Chloride 103 mmol/L (98-107); Potassium 3.3 mmoL/L (3.5-5.1); Sodium 139 mmol/L (136-145)
[2023-04-26 14:22] LABS: Anion Gap 11.3 mEq/L (5-15); Blood Urea Nitrogen 12 mg/dl (9-20); Calcium 8.3 mg/dl (8.4-10.2); Carbon Dioxide 28 mmol/L (22.0-30.0); Estimated Glomerular Filt Rate 109 ml/min (>60); GFR (African American) 131 ML/MIN (>60); Glucose 166 mg/dl (74-100)
[2023-04-26 15:20] LABS: Thyroid Stimulating Hormone 2.28 uIU/mL (0.465-4.68)
[2023-04-26 15:56] LABS: Vitamin B12 332 pg/mL (239-931)
== END ==
PROVIDERS: PCP Internal Medicine; Visit Provider Nurse Practitioner Family
DX: I10 Essential (primary) hypertension (principal); Z01.812 Encounter for preprocedural laboratory examination; E66.9 Obesity, unspecified; H49.10 Fourth [trochlear] nerve palsy, unspecified eye; I48.91 Unspecified atrial fibrillation; R06.83 Snoring; Z85.820 Personal history of malignant melanoma of skin; E11.9 Type 2 diabetes mellitus without complications; Z68.33 Body mass index [BMI] 33.0-33.9, adult
CPT/HCPCS: 36415; 70553; 80048; 82565; 82607; 82746; 84443; 84520; A9576

== ENCOUNTER 2023-06-01 11:00 | Outpatient (RCR) | payer MEDICARE, BC, SELFPAY | END 2023-06-01 12:00 | disposition home or self-care (01) | LOC: PT 11:00 | PROVIDERS: PCP Internal Medicine; Visit Provider Nurse Practitioner Family | DX: M05.711 Rheumatoid arthritis with rheumatoid factor of right shoulder without organ or systems involvement (principal); M05.712 Rheumatoid arthritis with rheumatoid factor of left shoulder without organ or systems involvement; M05.70 Rheumatoid arthritis with rheumatoid factor of unspecified site without organ or systems involvement; M54.2 Cervicalgia | CPT/HCPCS: 20560; 97010; 97014; 97035; 97110; 97163; 97164; 97530; G0283 ==

== ENCOUNTER → 2023-06-07 08:08 | Outpatient (CLI) | payer MEDICARE, BC, SELFPAY ==
[2023-06-07 08:29] LABS: Basophils # 0.1 K/mm3 (0-0.2); Basophils % 0.7 % (0.1-2.0); Eosinophils # 0.3 K/mm3 (0.0-0.4); Eosinophils % 3.5 % (0.1-12.0); Hematocrit 42.7 % (42.0-52.0); Hemoglobin 13.8 g/dL (14.1-18.0); Lymphocytes # 1.5 K/mm3 (0.7-4.5); Lymphocytes % 19.7 % (10-50); Mean Corpuscular HGB Conc 32.4 g/dL (31.8-35.4); Mean Corpuscular Hemoglobin 30.1 pg (27.0-31.2); Mean Corpuscular Volume 93.1 fl (80-94); Mean Platelet Volume 8.1 fl (7.4-10.4); Monocytes # 0.8 K/mm3 (0.1-1.0); Monocytes % 10.2 % (1.7-9.3); Neutrophils # 4.9 K/mm3 (1.8-7.8); Neutrophils % 65.9 % (37.0-80.0); Platelet Count 353 K/mm3 (142-424); Red Blood Count 4.58 M/mm3 (4.60-6.20); Red Cell Distribution Width 16.9 % (11.5-17.5); White Blood Count 7.4 K/mm3 (4.8-10.8)
[2023-06-07 09:01] LABS: Erythrocyte Sedimentation Rate 36 mm/hr (0-20)
[2023-06-07 13:25] LABS: Alanine Aminotransferase 24 U/L (12-78); Albumin Level 3.8 g/dl (3.5-5.0); Albumin/Globulin Ratio 1.2 (1.1-1.8); Alkaline Phosphatase 65 U/L (38-126); Anion Gap 12.6 mEq/L (5-15); Aspartate Amino Transferase 30 U/L (17-59); Bilirubin,Total 0.3 mg/dl (0.2-1.3); Blood Urea Nitrogen 13 mg/dl (9-20); Calcium 8.7 mg/dl (8.4-10.2); Carbon Dioxide 28 mmol/L (22.0-30.0); Chloride 103 mmol/L (98-107); Estimated Glomerular Filt Rate 130 ml/min (>60); GFR (African American) 157 ML/MIN (>60); Globulin 3.2 g/dL (1.3-3.2); Glucose 142 mg/dl (74-100); Potassium 3.6 mmoL/L (3.5-5.1); Sodium 140 mmol/L (136-145)
[2023-06-07 13:30] LABS: C-Reactive Protein 7.8 mg/L (0-4)
== END ==
PROVIDERS: PCP Internal Medicine; Visit Provider Nurse Practitioner Family
DX: E11.9 Type 2 diabetes mellitus without complications (principal); M05.79 Rheumatoid arthritis with rheumatoid factor of multiple sites without organ or systems involvement; M85.80 Other specified disorders of bone density and structure, unspecified site; Z79.1 Long term (current) use of non-steroidal anti-inflammatories (NSAID); Z79.899 Other long term (current) drug therapy; Z79.84 Long term (current) use of oral hypoglycemic drugs
CPT/HCPCS: 36415; 80053; 85025; 85651; 86140

== ENCOUNTER → 2023-07-05 13:38 | Outpatient (CLI) | payer MEDICARE, BC, SELFPAY ==
[2023-07-05 17:03] LABS: Hemoglobin A1C 6.6 % (4.0-6.0)
[2023-07-05 17:11] LABS: Chloride 101 mmol/L (98-107); Sodium 140 mmol/L (136-145)
[2023-07-05 17:12] LABS: Potassium 4.3 mmoL/L (3.5-5.1)
[2023-07-05 17:14] LABS: Blood Urea Nitrogen 16 mg/dl (9-20)
[2023-07-05 17:15] LABS: Anion Gap 14.3 mEq/L (5-15); Calcium 8.6 mg/dl (8.4-10.2); Carbon Dioxide 29 mmol/L (22.0-30.0); Estimated Glomerular Filt Rate 109 ml/min (>60); GFR (African American) 131 ML/MIN (>60); Glucose 122 mg/dl (74-100)
== END ==
PROVIDERS: PCP Internal Medicine; Visit Provider Internal Medicine
DX: E11.59 Type 2 diabetes mellitus with other circulatory complications (principal); E11.42 Type 2 diabetes mellitus with diabetic polyneuropathy; M05.79 Rheumatoid arthritis with rheumatoid factor of multiple sites without organ or systems involvement; M15.0 Primary generalized (osteo)arthritis; J45.909 Unspecified asthma, uncomplicated; I50.32 Chronic diastolic (congestive) heart failure; I48.0 Paroxysmal atrial fibrillation; Z79.84 Long term (current) use of oral hypoglycemic drugs; I11.0 Hypertensive heart disease with heart failure
CPT/HCPCS: 80048; 83036

== ENCOUNTER 2023-07-20 13:21 | Outpatient (POV) | payer MEDICARE, BC, SELFPAY | END 2023-07-20 23:59 | disposition home or self-care (01) | LOC: SC 13:22 | PROVIDERS: PCP Internal Medicine; Visit Provider Dermatology | DX: Z00.00 Encounter for general adult medical examination without abnormal findings (principal) ==

== ENCOUNTER 2023-08-27 09:25 | Outpatient (CLI) | payer MEDICARE, BC, SELFPAY ==
[2023-08-27 09:50] LABS: Basophils # 0.1 K/mm3 (0-0.2); Basophils % 0.8 % (0.1-2.0); Eosinophils # 0.4 K/mm3 (0.0-0.4); Eosinophils % 4.8 % (0.1-12.0); Hematocrit 46.4 % (42.0-52.0); Hemoglobin 15.5 g/dL (14.1-18.0); Lymphocytes # 2.1 K/mm3 (0.7-4.5); Lymphocytes % 24.3 % (10-50); Mean Corpuscular HGB Conc 33.4 g/dL (31.8-35.4); Mean Corpuscular Hemoglobin 30.4 pg (27.0-31.2); Mean Corpuscular Volume 91.1 fl (80-94); Mean Platelet Volume 8.2 fl (7.4-10.4); Monocytes % 11.8 % (1.7-9.3); Neutrophils % 58.4 % (37.0-80.0); Platelet Count 305 K/mm3 (142-424); Red Blood Count 5.09 M/mm3 (4.60-6.20); Red Cell Distribution Width 16.9 % (11.5-17.5); White Blood Count 8.6 K/mm3 (4.8-10.8)
[2023-08-27 10:17] LABS: Erythrocyte Sedimentation Rate 11 mm/hr (0-20)
[2023-08-27 10:53] LABS: Chloride 103 mmol/L (98-107); Sodium 139 mmol/L (136-145)
[2023-08-27 10:54] LABS: Potassium 3.9 mmoL/L (3.5-5.1)
[2023-08-27 10:56] LABS: Alanine Aminotransferase 16 U/L (12-78); Albumin Level 3.8 g/dl (3.5-5.0); Albumin/Globulin Ratio 1.2 (1.1-1.8); Alkaline Phosphatase 70 U/L (38-126); Anion Gap 7.9 mEq/L (5-15); Aspartate Amino Transferase 23 U/L (17-59); Bilirubin,Total 0.4 mg/dl (0.2-1.3); Blood Urea Nitrogen 16 mg/dl (9-20); Calcium 9.1 mg/dl (8.4-10.2); Carbon Dioxide 32 mmol/L (22.0-30.0); Estimated Glomerular Filt Rate 109 ml/min (>60); GFR (African American) 131 ML/MIN (>60); Globulin 3.1 g/dL (1.3-3.2); Glucose 143 mg/dl (74-100); Total Protein,Serum 6.9 g/dl (6.3-8.2)
[2023-08-27 11:02] LABS: C-Reactive Protein 5.1 mg/L (0-4)
== END 2023-08-27 23:59 ==
LOC: LAB 09:27
PROVIDERS: PCP Internal Medicine; Visit Provider Nurse Practitioner Family
DX: E11.9 Type 2 diabetes mellitus without complications (principal); M05.79 Rheumatoid arthritis with rheumatoid factor of multiple sites without organ or systems involvement; M85.80 Other specified disorders of bone density and structure, unspecified site; R21 Rash and other nonspecific skin eruption; Z68.33 Body mass index [BMI] 33.0-33.9, adult; Z79.84 Long term (current) use of oral hypoglycemic drugs
CPT/HCPCS: 36415; 80053; 85025; 85651; 86140

== ENCOUNTER 2023-12-07 15:08 | Outpatient (POV) | payer MEDICARE, BC, SELFPAY | END 2023-12-07 23:59 | disposition home or self-care (01) | LOC: SC 15:08 | PROVIDERS: PCP Internal Medicine; Visit Provider Dermatology | DX: Z00.00 Encounter for general adult medical examination without abnormal findings (principal) ==

== ENCOUNTER 2023-12-20 09:19 | Outpatient (CLI) | payer MEDICARE, BC, SELFPAY ==
[2023-12-20 09:59] LABS: Basophils # 0.1 K/mm3 (0-0.2); Eosinophils # 0.4 K/mm3 (0.0-0.4); Eosinophils % 5.1 % (0.1-12.0); Hematocrit 46.9 % (42.0-52.0); Hemoglobin 15.5 g/dL (14.1-18.0); Lymphocytes # 1.9 K/mm3 (0.7-4.5); Lymphocytes % 22.5 % (10-50); Mean Corpuscular Hemoglobin 31.4 pg (27.0-31.2); Mean Platelet Volume 8.4 fl (7.4-10.4); Monocytes # 0.8 K/mm3 (0.1-1.0); Monocytes % 9.8 % (1.7-9.3); Neutrophils # 5.2 K/mm3 (1.8-7.8); Neutrophils % 61.7 % (37.0-80.0); Platelet Count 287 K/mm3 (142-424); Red Blood Count 4.94 M/mm3 (4.60-6.20); Red Cell Distribution Width 16.4 % (11.5-17.5); White Blood Count 8.4 K/mm3 (4.8-10.8)
[2023-12-20 10:29] LABS: Chloride 103 mmol/L (98-107); Potassium 4.1 mmoL/L (3.5-5.1); Sodium 139 mmol/L (136-145)
[2023-12-20 10:31] LABS: Alanine Aminotransferase 23 U/L (12-78); Aspartate Amino Transferase 31 U/L (17-59); Blood Urea Nitrogen 20 mg/dl (9-20); Estimated Glomerular Filt Rate 108 ml/min (>60); GFR (African American) 131 ML/MIN (>60)
[2023-12-20 10:32] LABS: Albumin Level 4.1 g/dl (3.5-5.0); Albumin/Globulin Ratio 1.3 (1.1-1.8); Alkaline Phosphatase 65 U/L (38-126); Anion Gap 12.1 mEq/L (5-15); Bilirubin,Total 0.4 mg/dl (0.2-1.3); Calcium 9.2 mg/dl (8.4-10.2); Carbon Dioxide 28 mmol/L (22.0-30.0); Globulin 3.1 g/dL (1.3-3.2); Glucose 130 mg/dl (74-100); Total Protein,Serum 7.2 g/dl (6.3-8.2)
[2023-12-20 10:37] LABS: C-Reactive Protein 3.1 mg/L (0-4)
[2023-12-20 10:50] LABS: Erythrocyte Sedimentation Rate 16 mm/hr (0-20)
== END 2023-12-20 23:59 | disposition home or self-care (01) ==
PROVIDERS: PCP Internal Medicine; Visit Provider Internal Medicine
DX: Z79.899 Other long term (current) drug therapy (principal); M05.79 Rheumatoid arthritis with rheumatoid factor of multiple sites without organ or systems involvement
CPT/HCPCS: 36415; 80053; 85025; 85651; 86140

== ENCOUNTER 2024-01-06 09:39 | Outpatient (CLI) | payer MEDICARE, BC, SELFPAY ==
--- NOTE | 2024-01-06 09:45 | US_ITS ---
FINAL REPORT TECHNIQUE: Ultrasound images of the kidneys and bladder were obtained. CLINICAL HISTORY: N28.1 - Cyst of kidney, acquired FINDINGS: The right kidney measures 13 cm in length. It is normal in echogenicity. There is no hydronephrosis. The left kidney measures 13 cm in length. It is normal in echogenicity. There is no hydronephrosis. There are multiple bilateral renal cysts with a benign appearance measuring up to 3.8 cm on the right and 4.7 cm on the left. The urinary bladder is unremarkable. IMPRESSION: Bilateral, benign-appearing renal cysts. No hydronephrosis. Reviewed, Interpreted and Dictated by Sol Kaye MD Transcribed by Jaelyn Goff Authenticated and . [facility]
== END 2024-01-06 23:59 | disposition home or self-care (01) ==
LOC: RAD 09:40
PROVIDERS: PCP Internal Medicine; Visit Provider Nurse Practitioner Family
DX: N28.1 Cyst of kidney, acquired (principal); E78.2 Mixed hyperlipidemia; I11.9 Hypertensive heart disease without heart failure; I25.10 Atherosclerotic heart disease of native coronary artery without angina pectoris; I48.91 Unspecified atrial fibrillation; E11.9 Type 2 diabetes mellitus without complications; Z79.84 Long term (current) use of oral hypoglycemic drugs
CPT/HCPCS: 76770

== ENCOUNTER 2024-02-02 07:40 | Outpatient (CLI) | payer MEDICARE, BC, SELFPAY ==
--- NOTE | 2024-02-02 07:40 | CA_ITS ---
FINAL REPORT CLINICAL HISTORY: htn/renal cyst FINDINGS: Aorta velocity: 79 cm/sec Right kidney: 12.7 cm. There is no hydronephrosis. There are multiple right renal cysts, largest measures 3.3 cm. Right intrarenal RI: 0.70 Right renal artery velocity: 141 cm/sec. Right RAR (Renal artery-Aortic Ratio): 1.8 Left Kidney: 13.4 cm. There is no hydronephrosis. There are multiple left renal cysts, largest measures 9.4 cm. Left intrarenal RI: 0.70 Left renal artery velocity: 272 cm/sec. Left RAR (Renal Artery-Aortic Ratio): 3.4 IMPRESSION: No evidence of significant renal artery stenosis on the right. Less than 60% renal artery stenosis on the left. CT angiogram or postcontrast MR angiogram would be more sensitive for evaluation of possible renal artery stenosis. Reviewed, Interpreted and Dictated by Lisa De Leon MD Transcribed by Ines Reina Authenticated and [facility]
== END 2024-02-02 23:59 | disposition home or self-care (01) ==
LOC: RT 07:40
PROVIDERS: PCP Internal Medicine; Visit Provider Nurse Practitioner Family
DX: I10 Essential (primary) hypertension (principal); N28.1 Cyst of kidney, acquired
CPT/HCPCS: 93976

== ENCOUNTER 2024-04-11 14:21 | Outpatient (CLI) | payer MEDICARE, BC, SELFPAY ==
[2024-04-11 14:37] LABS: Creatinine,Urine Random 36 mg/dL (Not Estab.); Microalbumin/Creatinine Ratio 185.5
[2024-04-11 15:03] LABS: Alanine Aminotransferase 24 U/L (12-78); Albumin Level 4.2 g/dl (3.5-5.0); Albumin/Globulin Ratio 1.6 (1.1-1.8); Alkaline Phosphatase 72 U/L (38-126); Anion Gap 10.8 mEq/L (5-15); Aspartate Amino Transferase 26 U/L (17-59); Bilirubin,Total 0.5 mg/dl (0.2-1.3); Blood Urea Nitrogen 15 mg/dl (9-20); Calcium 9.3 mg/dl (8.4-10.2); Carbon Dioxide 31 mmol/L (22.0-30.0); Chloride 104 mmol/L (98-107); Estimated Glomerular Filt Rate 108 ml/min (>60); GFR (African American) 131 ML/MIN (>60); Globulin 2.7 g/dL (1.3-3.2); Glucose 116 mg/dl (74-100); Potassium 3.8 mmoL/L (3.5-5.1); Sodium 142 mmol/L (136-145); Total Protein,Serum 6.9 g/dl (6.3-8.2)
[2024-04-11 15:33] LABS: Prostate Specific Ag Screen 0.4 ng/ml (0.0-4.0)
[2024-04-11 15:49] LABS: Hemoglobin A1C 6.8 % (4.0-6.0)
[2024-04-11 16:59] LABS: Chol/HDL Ratio 3.7 (1-3.5); Cholesterol 153 mg/dl (140-200); HDL Cholesterol 41 mg/dl (40-60); Triglycerides 157 mg/dl (30-150); VLDL Cholesterol 31 mg/dL (0-40)
[2024-04-11 17:10] LABS: Direct LDL Cholesterol 86.55 mg/dL (100-129)
== END 2024-04-11 23:59 | disposition home or self-care (01) ==
LOC: LAB.DROPOF 14:21
PROVIDERS: PCP Internal Medicine; Visit Provider Internal Medicine
DX: E11.59 Type 2 diabetes mellitus with other circulatory complications (principal); I25.10 Atherosclerotic heart disease of native coronary artery without angina pectoris; I15.0 Renovascular hypertension; Z12.5 Encounter for screening for malignant neoplasm of prostate; E78.2 Mixed hyperlipidemia
CPT/HCPCS: 80053; 80061; 82043; 82570; 83036; G0103

== ENCOUNTER 2024-04-28 11:12 | Outpatient (CLI) | payer MEDICARE, BC, SELFPAY ==
[2024-04-28 11:31] LABS: Basophils # 0.1 K/mm3 (0-0.2); Basophils % 0.8 % (0.1-2.0); Eosinophils # 0.3 K/mm3 (0.0-0.4); Eosinophils % 3.7 % (0.1-12.0); Hematocrit 43.1 % (42.0-52.0); Hemoglobin 14.8 g/dL (14.1-18.0); Lymphocytes # 1.5 K/mm3 (0.7-4.5); Lymphocytes % 16.4 % (10-50); Mean Corpuscular HGB Conc 34.2 g/dL (31.8-35.4); Mean Corpuscular Hemoglobin 31.4 pg (27.0-31.2); Mean Corpuscular Volume 91.9 fl (80-94); Mean Platelet Volume 8.3 fl (7.4-10.4); Monocytes # 0.9 K/mm3 (0.1-1.0); Neutrophils # 6.2 K/mm3 (1.8-7.8); Platelet Count 267 K/mm3 (142-424); Red Cell Distribution Width 16.5 % (11.5-17.5)
[2024-04-28 12:02] LABS: Albumin Level 4.3 g/dl (3.5-5.0); Chloride 104 mmol/L (98-107); Potassium 3.9 mmoL/L (3.5-5.1); Sodium 142 mmol/L (136-145)
[2024-04-28 12:05] LABS: Alanine Aminotransferase 24 U/L (12-78); Albumin/Globulin Ratio 1.6 (1.1-1.8); Alkaline Phosphatase 62 U/L (38-126); Anion Gap 10.9 mEq/L (5-15); Aspartate Amino Transferase 22 U/L (17-59); Bilirubin,Total 0.4 mg/dl (0.2-1.3); Blood Urea Nitrogen 15 mg/dl (9-20); Carbon Dioxide 31 mmol/L (22.0-30.0); Estimated Glomerular Filt Rate 108 ml/min (>60); GFR (African American) 131 ML/MIN (>60); Globulin 2.7 g/dL (1.3-3.2)
[2024-04-28 12:06] LABS: Calcium 9.1 mg/dl (8.4-10.2); Glucose 176 mg/dl (74-100)
[2024-04-28 12:11] LABS: C-Reactive Protein 3.7 mg/L (0-4)
[2024-04-28 13:20] LABS: Erythrocyte Sedimentation Rate 38 mm/hr (0-20)
== END 2024-04-28 23:59 | disposition home or self-care (01) ==
LOC: LAB 11:13
PROVIDERS: PCP Internal Medicine; Visit Provider Internal Medicine
DX: D64.9 Anemia, unspecified (principal)
CPT/HCPCS: 36415; 80053; 85025; 85651; 86140

== ENCOUNTER 2024-07-17 09:35 | Outpatient (CLI) | payer MEDICARE, BC, SELFPAY ==
[2024-07-17 10:05] LABS: Basophils # 0.1 K/mm3 (0-0.2); Basophils % 0.6 % (0.1-2.0); Eosinophils # 0.4 K/mm3 (0.0-0.4); Hematocrit 42.6 % (42.0-52.0); Hemoglobin 14.3 g/dL (14.1-18.0); Lymphocytes # 1.4 K/mm3 (0.7-4.5); Lymphocytes % 15.5 % (10-50); Mean Corpuscular HGB Conc 33.6 g/dL (31.8-35.4); Mean Corpuscular Hemoglobin 30.7 pg (27.0-31.2); Mean Corpuscular Volume 91.4 fl (80-94); Mean Platelet Volume 10.4 fl (7.4-10.4); Monocytes # 0.6 K/mm3 (0.1-1.0); Neutrophils # 6.4 K/mm3 (1.8-7.8); Neutrophils % 72.4 % (37.0-80.0); Platelet Count 276 K/mm3 (142-424); Red Blood Count 4.66 M/mm3 (4.60-6.20); Red Cell Distribution Width 15.2 % (11.5-17.5); White Blood Count 8.8 K/mm3 (4.8-10.8)
[2024-07-17 10:32] LABS: Erythrocyte Sedimentation Rate 14 mm/hr (0-20)
[2024-07-17 10:43] LABS: Albumin Level 4.1 g/dl (3.5-5.0); Chloride 101 mmol/L (98-107); Potassium 3.7 mmoL/L (3.5-5.1); Sodium 141 mmol/L (136-145)
[2024-07-17 10:46] LABS: Alanine Aminotransferase 22 U/L (12-78); Albumin/Globulin Ratio 1.7 (1.1-1.8); Alkaline Phosphatase 70 U/L (38-126); Anion Gap 12.7 mEq/L (5-15); Aspartate Amino Transferase 29 U/L (17-59); Bilirubin,Total 0.4 mg/dl (0.2-1.3); Blood Urea Nitrogen 17 mg/dl (9-20); Calcium 9.2 mg/dl (8.4-10.2); Carbon Dioxide 31 mmol/L (22.0-30.0); Estimated Glomerular Filt Rate 93 ml/min (>60); GFR (African American) 112 ML/MIN (>60); Globulin 2.4 g/dL (1.3-3.2); Glucose 145 mg/dl (74-100); Total Protein,Serum 6.5 g/dl (6.3-8.2)
[2024-07-17 10:52] LABS: C-Reactive Protein 3.7 mg/L (0-4)
== END 2024-07-17 23:59 | disposition home or self-care (01) ==
LOC: LAB 09:37
PROVIDERS: PCP Internal Medicine; Visit Provider Internal Medicine
DX: Z79.899 Other long term (current) drug therapy (principal)
CPT/HCPCS: 36415; 80053; 85025; 85651; 86140

== ENCOUNTER 2024-08-15 06:14 | Day surgery (SDC) | payer MEDICARE, BC, SELFPAY ==
[2024-08-11 10:05] VITALS: BMI 34.4
[2024-08-15] VITALS (7 sets, daily range): BP systolic 138–166; BP diastolic 62–77; PULSE 54–59; RESP 18–20; TEMP 36.6–37.4; O2SAT 94–96
[2024-08-15] MEDS: CYCLOPENTOLATE 2% OPHTH SOLN 2ML BOTTLE OP ×3 (07:02→07:12)
[2024-08-15] MEDS: PHENYLEPHRINE 2.5% OPHTH SOLN 2ML OP ×3 (07:02→07:12)
[2024-08-15] MEDS: TETRACAINE 0.5% OPTH SOL 15ML OP ×3 (07:02→07:12)
[2024-08-15 07:10] LABS: POC Glucose,Bedside 118 (70-110)
[2024-08-15] MEDS: TIMOLOL 0.5% OPTH SOLN 5ML OP (07:44)
[2024-08-15] MEDS: MIDAZOLAM 2MG/2ML VIAL 1 MG IV (07:44)
[2024-08-15] MEDS: SODIUM CHLORIDE 0.9% 10ML FLUSH SYRINGE 10 ML IV (07:44)
[2024-08-15] MEDS: LIDOCAINE 1% PF 2ML AMPULE 2 ML IJ (07:44)
[2024-08-15] MEDS: TOBRAMYCIN/DEX OPTH SUSP 2.5ML OP (07:44)
--- NOTE | 2024-08-15 11:37 | P.PCN_ITS ---
[facility] Procedure Note Date: 08/15/24 Time: 11:37 Procedure Note:: Preoperative Diagnosis: Cataract combined NS Cortical Complex [Left] Eye Postop diagnosis: same Operation: Microscopic phacoemulsification with intraocular lens implant [Left] Eye Specimen: None Blood Loss: None The patient was examined in the office with a complaint of poor vision in the [left] eye. The patient reports that this interferes with ADLs such as reading, watching TV and/or driving or the vision is like looking through a foggy haze and is very troubling. The patient was examined and found to have a visually significant cataract with best corrected vision of [20/400] by refraction and/or glare testing. Treatment options, risks and benefits were explained and the patient elected to have cataract surgery in an attempt to improve their vision. The patient had the eye anesthetized with topical tetracaine, the eye ways prepped and draped in the usual fashion for cataract surgery. A paracentesis and a temporal keratotomy were made. 0.2cc of 1% lidocaine PF was placed into the anterior chamber. And aqueous/viscoelastic exchange was done and a 360 degree capsulorexis was performed. Through hydrodissection and delineation with BSS on a cannula was done. The lens nucleus was phecoemulsified with CDE of [8.89]. Residual cortical material was removed using automated I&A The capsular bag was deepened with viscoelastica and a PCIOL was placed in the capsular bag with good centration and stability. Residual viscoelastic was removed using automated I&A. The keratotomy incision was hydrated with BSS on a cannula. The wound were checked and found to be water tight. IOP was checked digitally and adjusted as needed so as not to be too high. 1 drop of timolol 0.5%, ofloxacin, prednisolone acetate and ketorolac was instilled and eye shield taped over the eye. The patient was taken to recovery in good condition and will be seen postoperatively.
== END 2024-08-15 08:15 | disposition home or self-care (01) ==
PROVIDERS: PCP Internal Medicine; Visit Provider Ophthalmology
PROC: (CPT 66984; principal; 2024-08-15 07:30)
DX: H25.012 Cortical age-related cataract, left eye (principal); E11.9 Type 2 diabetes mellitus without complications; Z79.84 Long term (current) use of oral hypoglycemic drugs
CPT/HCPCS: 66984; 82962; J2250; V2632

== ENCOUNTER 2024-08-29 06:11 | Day surgery (SDC) | payer MEDICARE, BC, SELFPAY ==
--- NOTE | 2024-08-28 10:57 | SUR.PREOP ---
attempted to pre op pt, no answer. detailed message left with listed phone number
[2024-08-28 11:04] VITALS: BMI 34.4
[2024-08-29] VITALS (7 sets, daily range): BP systolic 154–197; BP diastolic 63–86; PULSE 54–65; RESP 16–18; TEMP 36.1–36.4; O2SAT 91–96
[2024-08-29] MEDS: TETRACAINE 0.5% OPTH SOL 15ML OP ×4 (06:26→07:40)
[2024-08-29] MEDS: CYCLOPENTOLATE 2% OPHTH SOLN 2ML BOTTLE OP ×3 (06:26→06:27)
[2024-08-29] MEDS: PHENYLEPHRINE 2.5% OPHTH SOLN 2ML OP ×3 (06:27→06:28)
[2024-08-29] MEDS: SODIUM CHLORIDE 0.9% 10ML FLUSH SYRINGE 10 ML IV (08:00)
[2024-08-29] MEDS: MIDAZOLAM 2MG/2ML VIAL 1 MG IV (08:00)
[2024-08-29] MEDS: TIMOLOL 0.5% OPTH SOLN 5ML OP (08:10)
[2024-08-29] MEDS: TOBRAMYCIN/DEX OPTH SUSP 2.5ML OP (08:10)
[2024-08-29] MEDS: LIDOCAINE 1% PF 2ML AMPULE 2 ML IJ (08:11)
--- NOTE | 2024-08-29 10:37 | HMH.PROCNOTE ---
[facility] Procedure Note Date: 08/29/24 Time: 10:37 Procedure Note:: Preoperative Diagnosis: Cataract combined NS Cortical Complex [Right] Eye Postop diagnosis: same Operation: Microscopic phacoemulsification with intraocular lens implant [Right] Eye Specimen: None Blood Loss: None The patient was examined in the office with a complaint of poor vision in the [right] eye. The patient reports that this interferes with ADLs such as reading, watching TV and/or driving or the vision is like looking through a foggy haze and is very troubling. The patient was examined and found to have a visually significant cataract with best corrected vision of [20/100] by refraction and/or glare testing. Treatment options, risks and benefits were explained and the patient elected to have cataract surgery in an attempt to improve their vision. The patient had the eye anesthetized with topical tetracaine, the eye ways prepped and draped in the usual fashion for cataract surgery. A paracentesis and a temporal keratotomy were made. 0.2cc of 1% lidocaine PF was placed into the anterior chamber. And aqueous/viscoelastic exchange was done and a 360 degree capsulorexis was performed. Through hydrodissection and delineation with BSS on a cannula was done. The lens nucleus was phecoemulsified with CDE of [7.19]. Residual cortical material was removed using automated I&A The capsular bag was deepened with viscoelastica and a PCIOL was placed in the capsular bag with good centration and stability. Residual viscoelastic was removed using automated I&A. The keratotomy incision was hydrated with BSS on a cannula. The wound were checked and found to be water tight. IOP was checked digitally and adjusted as needed so as not to be too high. 1 drop of timolol 0.5%, ofloxacin, prednisolone acetate and ketorolac was instilled and eye shield taped over the eye. The patient was taken to recovery in good condition and will be seen postoperatively.
[2024-08-30 06:41] LABS: POC Glucose,Bedside 127 (70-110)
== END 2024-08-29 08:36 | disposition home or self-care (01) ==
PROVIDERS: PCP Internal Medicine; Visit Provider Ophthalmology
PROC: (CPT 66984; principal; 2024-08-29 07:30)
DX: H25.011 Cortical age-related cataract, right eye (principal); E11.9 Type 2 diabetes mellitus without complications; Z79.84 Long term (current) use of oral hypoglycemic drugs
CPT/HCPCS: 66984; 82962; J2250; V2632

== ENCOUNTER 2024-09-04 11:32 | Outpatient (CLI) | payer MEDICARE, BC, SELFPAY ==
[2024-09-04 12:13] LABS: Basophils # 0.1 K/mm3 (0-0.2); Basophils % 0.6 % (0.1-2.0); Eosinophils # 0.3 K/mm3 (0.0-0.4); Eosinophils % 2.7 % (0.1-12.0); Hematocrit 45.1 % (42.0-52.0); Hemoglobin 15.1 g/dL (14.1-18.0); Lymphocytes # 1.3 K/mm3 (0.7-4.5); Lymphocytes % 13.1 % (10-50); Mean Corpuscular HGB Conc 33.5 g/dL (31.8-35.4); Mean Corpuscular Hemoglobin 30.6 pg (27.0-31.2); Mean Corpuscular Volume 91.5 fl (80-94); Mean Platelet Volume 10.6 fl (7.4-10.4); Monocytes # 0.6 K/mm3 (0.1-1.0); Monocytes % 5.8 % (1.7-9.3); Neutrophils # 7.7 K/mm3 (1.8-7.8); Neutrophils % 77.4 % (37.0-80.0); Platelet Count 262 K/mm3 (142-424); Red Blood Count 4.93 M/mm3 (4.60-6.20); Red Cell Distribution Width 15.4 % (11.5-17.5)
[2024-09-04 12:41] LABS: Albumin Level 4.6 g/dl (3.5-5.0); Chloride 99 mmol/L (98-107); Sodium 138 mmol/L (136-145)
[2024-09-04 12:44] LABS: Alanine Aminotransferase 24 U/L (12-78); Albumin/Globulin Ratio 1.8 (1.1-1.8); Alkaline Phosphatase 78 U/L (38-126); Aspartate Amino Transferase 27 U/L (17-59); Bilirubin,Total 0.5 mg/dl (0.2-1.3); Blood Urea Nitrogen 19 mg/dl (9-20); Calcium 8.9 mg/dl (8.4-10.2); Carbon Dioxide 30 mmol/L (22.0-30.0); Estimated Glomerular Filt Rate 108 ml/min (>60); GFR (African American) 131 ML/MIN (>60); Globulin 2.6 g/dL (1.3-3.2); Glucose 142 mg/dl (74-100); Total Protein,Serum 7.2 g/dl (6.3-8.2)
[2024-09-04 12:45] LABS: Erythrocyte Sedimentation Rate 14 mm/hr (0-20)
[2024-09-04 13:01] LABS: C-Reactive Protein 0.6 mg/L (0-4)
== END 2024-09-04 23:59 | disposition home or self-care (01) ==
LOC: LAB 11:34
PROVIDERS: PCP Internal Medicine; Visit Provider Internal Medicine
DX: M05.79 Rheumatoid arthritis with rheumatoid factor of multiple sites without organ or systems involvement (principal); D84.821 Immunodeficiency due to drugs; Z79.899 Other long term (current) drug therapy
CPT/HCPCS: 36415; 80053; 85025; 85651; 86140

== ENCOUNTER 2024-10-10 11:20 | Outpatient (CLI) | payer MEDICARE, BC, SELFPAY ==
[2024-10-10 11:30] LABS: Basophils # 0.1 K/mm3 (0-0.2); Basophils % 0.8 % (0.1-2.0); Eosinophils # 0.3 K/mm3 (0.0-0.4); Eosinophils % 4.4 % (0.1-12.0); Hematocrit 43.6 % (42.0-52.0); Hemoglobin 14.3 g/dL (14.1-18.0); Lymphocytes # 1.4 K/mm3 (0.7-4.5); Lymphocytes % 19.1 % (10-50); Mean Corpuscular HGB Conc 32.8 g/dL (31.8-35.4); Mean Corpuscular Hemoglobin 30.8 pg (27.0-31.2); Mean Corpuscular Volume 93.8 fl (80-94); Mean Platelet Volume 10.8 fl (7.4-10.4); Monocytes # 0.4 K/mm3 (0.1-1.0); Monocytes % 5.1 % (1.7-9.3); Neutrophils # 5.3 K/mm3 (1.8-7.8); Neutrophils % 70.2 % (37.0-80.0); Platelet Count 257 K/mm3 (142-424); Red Blood Count 4.65 M/mm3 (4.60-6.20); Red Cell Distribution Width 15.6 % (11.5-17.5); White Blood Count 7.5 K/mm3 (4.8-10.8)
[2024-10-10 11:59] LABS: Alanine Aminotransferase 21 U/L (12-78); Albumin Level 4.2 g/dl (3.5-5.0); Albumin/Globulin Ratio 1.8 (1.1-1.8); Alkaline Phosphatase 60 U/L (38-126); Anion Gap 8.1 mEq/L (5-15); Aspartate Amino Transferase 23 U/L (17-59); Bilirubin,Total 0.5 mg/dl (0.2-1.3); Blood Urea Nitrogen 19 mg/dl (9-20); Calcium 9.2 mg/dl (8.4-10.2); Carbon Dioxide 35 mmol/L (22.0-30.0); Chloride 102 mmol/L (98-107); Chol/HDL Ratio 3.6 (1-3.5); Cholesterol 149 mg/dl (140-200); Estimated Glomerular Filt Rate 108 ml/min (>60); GFR (African American) 131 ML/MIN (>60); Globulin 2.4 g/dL (1.3-3.2); Glucose 118 mg/dl (74-100); HDL Cholesterol 41 mg/dl (40-60); Potassium 4.1 mmoL/L (3.5-5.1); Sodium 141 mmol/L (136-145); Total Protein,Serum 6.6 g/dl (6.3-8.2); Triglycerides 126 mg/dl (30-150); VLDL Cholesterol 25 mg/dL (0-40)
[2024-10-10 12:10] LABS: Direct LDL Cholesterol 76.92 mg/dL (100-129)
[2024-10-10 15:05] LABS: Hemoglobin A1C 6.3 % (4.0-6.0)
== END 2024-10-10 23:59 | disposition home or self-care (01) ==
LOC: LAB.DROPOF 11:21
PROVIDERS: PCP Internal Medicine; Visit Provider Internal Medicine
DX: I10 Essential (primary) hypertension (principal); E11.42 Type 2 diabetes mellitus with diabetic polyneuropathy; E11.59 Type 2 diabetes mellitus with other circulatory complications; I15.0 Renovascular hypertension; E78.5 Hyperlipidemia, unspecified; Z79.84 Long term (current) use of oral hypoglycemic drugs
CPT/HCPCS: 80053; 80061; 83036; 85025

== ENCOUNTER 2024-11-30 11:00 | Outpatient (CLI) | payer MEDICARE, BC, SELFPAY ==
[2024-11-30 17:47] LABS: Anion Gap 12.6 mEq/L (5-15); Blood Urea Nitrogen 22 mg/dl (9-20); Carbon Dioxide 34 mmol/L (22.0-30.0); Chloride 98 mmol/L (98-107); Estimated Glomerular Filt Rate 93 ml/min (>60); GFR (African American) 112 ML/MIN (>60); Glucose 155 mg/dl (74-100); Potassium 3.6 mmoL/L (3.5-5.1); Sodium 141 mmol/L (136-145)
== END 2024-11-30 23:59 | disposition home or self-care (01) ==
LOC: LAB.DROPOF 12-01 10:47
PROVIDERS: PCP Internal Medicine; Visit Provider Internal Medicine
DX: I50.30 Unspecified diastolic (congestive) heart failure (principal); I15.0 Renovascular hypertension
CPT/HCPCS: 80048

== ENCOUNTER 2024-12-13 12:41 | Outpatient (CLI) | payer MEDICARE, BC, SELFPAY ==
--- NOTE | 2024-12-13 | CA_ITS ---
APPROVED REPORT EXAM: Comprehensive 2D, Doppler, and color-flow Echocardiogram Icu Clerk: Priyanka Roberts RT(R) Ht: 5 ft 10 in Wt: 248lbs BSA: 2.29 BP: 132/67 mmHg Indications: CHF, DD, AFIB, fatigue, edema, HTN, DM, SOB, hyperlipidemia, aortic sclerosis, skin cancer, RA 2D Dimensions LA Volume 56.50 mL LA Volume Index 24.67 mL/m2 (M/F) 16-34 M-Mode Dimensions RVDd 3.25 cm (0.9-2.6) LA Diam 4.39 cm (1.9-4.0) LVDd 6.06 cm (3.5-5.7) LVDs 4.41 cm (3.5-5.7) IVSd 0.85 cm (0.6-1.1) PWd 0.80 cm (0.6-1.1) EF (Teich) 52.10% FS 27.20% EDV (Teich) 184.10 mL ESV (Teich) 88.20 mL LV Diastology E Decel Time 180 (160-240 msec) E/A Ratio 1.3 Mitral Valve MV E Max César. 104.0 (40-130 cm/s) MV A Velocity 81.0 (40-130 cm/s) E/A Ratio 1.29 MV PHT 53.0 ms Tricuspid Valve TR P. Velocity 236.00 cm/s RAP Estimate 10.00 mmHg RVSP 32.40 mmHg Left Ventricle The left ventricle is normal size. The left ventricular systolic function is normal. The left ventricular ejection fraction is within the normal range. There is increased LV wall thickness. There is normal LV segmental wall motion. The left ventricular diastolic function is normal. LVEF is 55%. Right Ventricle The right ventricle is normal size. The right ventricular systolic function is normal. Atria Left atrium is mildly dilated. The right atrium size is normal. There is no Doppler evidence of interatrial shunt. Aortic Valve The aortic valve is mildly thickened. Aortic sclerosis is present, but no evidence of aortic stenosis. Trace aortic regurgitation. Mitral Valve The mitral valve is normal in structure. No evidence of mitral valve stenosis. Mild mitral regurgitation. Tricuspid Valve Tricuspid valve is grossly normal in structure and function. Mild tricuspid regurgitation. RVSP is 20-25 mmHg. Pulmonic Valve The pulmonary valve is normal in structure. Trace pulmonic regurgitation. Great Vessels The aortic root is normal in size. IVC is normal in size and collapses >50% with inspiration. Pericardium There is no pericardial effusion. Other Information Study Quality: Fair Conclusion Normal biventricular systolic function. Mild LA dilation. Mild MR, mild TR. Electronically signed by : Lucero Lisa MD 12/24/2024 18:43:45
== END 2024-12-13 23:59 | disposition home or self-care (01) ==
LOC: RT 12:42
PROVIDERS: PCP Internal Medicine; Visit Provider Internal Medicine
DX: I08.1 Rheumatic disorders of both mitral and tricuspid valves (principal); C44.90 Unspecified malignant neoplasm of skin, unspecified; I11.0 Hypertensive heart disease with heart failure; I50.33 Acute on chronic diastolic (congestive) heart failure; I48.91 Unspecified atrial fibrillation; E11.9 Type 2 diabetes mellitus without complications; E78.5 Hyperlipidemia, unspecified; I70.0 Atherosclerosis of aorta; M06.9 Rheumatoid arthritis, unspecified
CPT/HCPCS: 93306

== ENCOUNTER 2025-01-02 09:47 | Outpatient (CLI) | payer MEDICARE, BC, SELFPAY ==
--- OUTSIDE RECORDS SUMMARY | 2025-01-02 09:51 | XMS_ITS | Clinical Summary ---
Author Organization [facility] Address [address] [id number] Care Team Providers Care Production Cook Name Role Phone Unavailable Primary Care Provider Unavailabl e Social History Tobacco Use Types Packs/Day Years Used Date Smoking Tobacco: Never Assessed Sex and Gender Information Value Date Recorded Sex Assigned at Not on file Legal Sex Male 2:58 PM EDT Gender Identity Not on file Sexual Orientation Not on file Last Filed Vital Signs Vital Sign Reading Time Taken Comments Blood Pressure 173/100 01/29/2023 3:04 PM EDT Pulse - - Temperature - - Respiratory Rate - - Oxygen Saturation - - Inhaled Oxygen Concentration - - Weight 108 kg (239 lb) 01/29/2023 3:04 PM EDT Height 177.8 cm (5' 10 ) 01/29/2023 3:04 PM EDT Body Mass Index 34.29 01/29/2023 3:04 PM EDT Plan of Treatment Health Maintenance Due Date Last Done Comments [facility]-Depression Screening 1942 [facility]-/Child/Adol SDOH Screenings 1940 [facility]- SDOH Screenings 1960 [facility]-Adult SDOH Screenings 1960 [facility]-DTaP,Tdap,and Td Vaccines (1 - Tdap) 1961 [facility]-RSV Vaccine: 60+ Years or (1 - 1-dose 75+ series) 2017 [facility]-Pneumococcal Vaccine: 50+ Years (2 of 2 - PCV) 05/06/2021 05/06/2020 [id number] Vaccine ( - 2023- season) 2024 04/20/2022, 10/29/2021, 03/26/2021, Additional history exists [facility]-Influenza Vaccine (Season Ended) 2025 05/01/2022, 04/21/2021, 05/06/2020 [facility]-Zoster Vaccines Completed 09/03/2022, 2 HPV Vaccines Aged Out No longer eligi ble based on patient's age to complete this topic [facility]-HIB Vaccines Aged Out No longer e ligible based on patient's age to complete this topic [facility]-Hepatitis A Vaccines Aged Out No longer eligible based on patient's age to complete this topic [facility]-IPV Vaccines Aged Out No longer e ligible based on patient's age to complete this topic [facility]-Rotavirus Vaccines Aged Out No lo nger eligible based on patient's age to complete this topic Insurance MEDICARE [facility]
[2025-01-02 10:35] LABS: Basophils # 0.1 K/mm3 (0-0.2); Basophils % 0.6 % (0.1-2.0); Eosinophils # 0.4 Kmm3 (0.0-0.4); Eosinophils % 4.2 % (0.1-12.0); Hematocrit 41.8 % (42.0-52.0); Hemoglobin 14.1 g/dL (14.1-18.0); Immature Granulocytes # 0.05 10^3uL; Immature Granulocytes % 0.6 %; Lymphocytes % 11.6 % (10-50); Mean Corpuscular HGB Conc 33.7 g/dL (31.8-35.4); Mean Corpuscular Hemoglobin 31.1 pg (27.0-31.2); Mean Corpuscular Volume 92.3 fl (80-94); Mean Platelet Volume 10.3 fl (7.4-10.4); Monocytes # 0.3 K/mm3 (0.1-1.0); Monocytes % 3.8 % (1.7-9.3); Neutrophils # 7.1 K/mm3 (1.8-7.8); Neutrophils % 79.2 % (37.0-80.0); Nucleated Red Blood Cells # 0 10^3/uL; Nucleated Red Blood Cells % 0 %; Platelet Count 281 K/mm3 (142-424); Red Blood Count 4.53 M/mm3 (4.60-6.20); Red Cell Distribution Width-SD 50.1 fL; White Blood Count 8.9 K/mm3 (4.8-10.8)
[2025-01-02 10:55] LABS: Erythrocyte Sedimentation Rate 19 mm/hr (0-20)
[2025-01-02 11:22] LABS: Albumin Level 4.1 g/dl (3.5-5.0); Chloride 100 mmol/L (98-107); Potassium 3.3 mmoL/L (3.5-5.1); Sodium 141 mmol/L (136-145)
[2025-01-02 11:25] LABS: Alanine Aminotransferase 28 U/L (12-78); Albumin/Globulin Ratio 1.5 (1.1-1.8); Alkaline Phosphatase 75 U/L (38-126); Anion Gap 8.3 mEq/L (5-15); Aspartate Amino Transferase 32 U/L (17-59); Bilirubin,Total 0.4 mg/dl (0.2-1.3); Blood Urea Nitrogen 22 mg/dl (9-20); Calcium 9.1 mg/dl (8.4-10.2); Carbon Dioxide 36 mmol/L (22.0-30.0); Estimated Glomerular Filt Rate 81 ml/min (>60); GFR (African American) 98 ML/MIN (>60); Globulin 2.8 g/dL (1.3-3.2); Glucose 160 mg/dl (74-100); Total Protein,Serum 6.9 g/dl (6.3-8.2)
[2025-01-02 11:33] LABS: C-Reactive Protein 6.5 mg/L (0-4)
[2025-01-02 11:42] LABS: T4 (Thyroxine) 6.8 ug/dl (5.53-11.0)
[2025-01-02 11:55] LABS: Thyroid Stimulating Hormone 2.24 uIU/mL (0.465-4.68)
== END 2025-01-02 23:59 | disposition home or self-care (01) ==
LOC: LAB 09:48
PROVIDERS: Internal Medicine; PCP Internal Medicine; Visit Provider Internal Medicine Medical Oncology
DX: I48.91 Unspecified atrial fibrillation (principal); M06.9 Rheumatoid arthritis, unspecified; M15.0 Primary generalized (osteo)arthritis; Z85.820 Personal history of malignant melanoma of skin
CPT/HCPCS: 36415; 80053; 84436; 84443; 85025; 85651; 86140

== ENCOUNTER 2025-01-29 12:45 | Outpatient (CLI) | payer MEDICARE, BC, SELFPAY ==
--- NOTE | 2025-01-29 13:00 | CT_ITS ---
FINAL REPORT TECHNIQUE: Axial CT of the abdomen and pelvis, without and with IV contrast. This study was performed with techniques to keep radiation doses as low as reasonably achievable, (ALARA). Individualized dose reduction techniques using automated exposure control or adjustment of mA and/or kV according to the patient''s size were employed. CLINICAL HISTORY: confirm no evidence of disease, multiple squamouis cell carcinoma COMPARISON: 02/15/2023 FINDINGS: Abdomen: There are multiple bilateral renal cysts without evidence of renal neoplasm. The largest arises from the lower pole of the left kidney measuring 10.2 cm and is unchanged from the previous exam. There is fatty change of the liver. The remaining solid organs are negative. There is no adenopathy. No evidence of bowel obstruction. Enhancing soft tissue in the retro umbilical region is similar to the previous study and probably scar tissue, particularly if the patient has undergone prior umbilical hernia repair. Pelvis: The appendix is normal. Severe sigmoid diverticulosis is noted. No pelvic mass or adenopathy identified. IMPRESSION: No evidence of metastatic disease. Reviewed, Interpreted and Dictated by Sol Kaye MD Transcribed by Ada Neville Authenticated and [facility]
--- NOTE | 2025-01-29 13:00 | CT_ITS ---
FINAL REPORT TECHNIQUE: The patient was injected with IV contrast. Axial images were obtained of the chest by computed tomography. Precontrast images were also obtained. This study was performed with techniques to keep radiation doses as low as reasonably achievable (ALARA). Individualized dose reduction techniques using automated exposure control or adjustment of mA and/or kV according to the patient's size were employed. CLINICAL HISTORY: confirm no evidence of disease, multiple squamous cell carcinoma COMPARISON: CTA 02/03/2023 FINDINGS: CT OF THE CHEST WITH AND WITHOUT CONTRAST: There are few scattered borderline enlarged lymph nodes in the upper right paratracheal region and left prevascular space. Given 2 year stability, these are considered benign reactive. Heart size is normal. There is no pericardial effusion identified. Trace right pleural effusion. There is no suspicious pulmonary nodule or infiltrate identified. IMPRESSION: Stable exam without evidence of metastatic disease. Reviewed, Interpreted and Dictated by Sol Kaye MD Transcribed by Ada Neville Authenticated and [facility]
--- OUTSIDE RECORDS SUMMARY | 2025-01-29 13:13 | XMS_ITS | Clinical Summary ---
Author Organization Healthcare Address [address] [place] [address] Care Team Providers Care Electrical Tester Name Role Phone Unavailable Primary Care Provider [...] (2 of 2 - PCV) 05/06/2021 05/06/2020 [id number] Vaccine ( - 2023- season) 2024 04/20/2022, 10/29/2021, 03/26/2021, Additional history exists [facility]-Influenza Vaccine (#1) 03/19/202505/01, 04/21/2021, 05/06/2020 [facility]-Zoster Vaccines Completed 09/03/2022, 2 [...] age to complete this [place] [address] [facility]
[2025-01-29] MEDS: SODIUM CHLORIDE 0.9% 10ML SYR (RAD ONLY) 10 ML IV (13:32)
[2025-01-29] MEDS: IOPAMIDOL-370 (76%);100ML BOTTLE 75 ML IV (13:32)
== END 2025-01-29 23:59 | disposition home or self-care (01) ==
LOC: RAD 12:47
PROVIDERS: PCP Internal Medicine; Visit Provider Internal Medicine Medical Oncology
DX: C44.621 Squamous cell carcinoma of skin of unspecified upper limb, including shoulder (principal)
CPT/HCPCS: 71270; 74178; Q9967

== ENCOUNTER 2025-03-02 09:30 | Inpatient (IN) | payer MEDICARE, BC, SELFPAY ==
--- OUTSIDE RECORDS SUMMARY | 2025-01-16 13:30 | XMS_ITS | Encounter Summary ---
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 RHEUMATOLOGY DEXA [address] [address] Phone: tel: fax: Referral ID Status Reason Start Date Expiration Date V isits Requested Visits Authorized [id number] Authorized 01/16/2025 04/17/2026 1 1 Reason for Visit * Reason Comments Follow-up Med Refill Encounter Details Date Type Department Care Team (Late st Contact Info) Description 01/16/2025 1:30 PM EDT Office Visit [facility] RHEUM[facility]OLOGY [address] [address] Michelle Richards MD [address] [id number] Rheumatoid arthritis involving multiple sites with positive rheumatoid factor (Primary Dx); High risk medication use; Immunosuppression due to drug therapy; joint terminal attack controller (current) use of systemic steroids Social History Tobacco Use Types Packs/Day Years Used Date Smoking Tobacco: Former Cigarettes Smokeless Tobacco: Never Alcohol Use Standard Drinks/Week Comments Not Currently 0 (1 standard drink = 0.6 oz pur e alcohol) Sex and Gender Information Value Date Recorded Sex Assigned at Not on file Legal Sex Male 11:16 AM EDT Gender Identity Not on file Sexual Orientation Not on file documented as of this encounter Last Filed Vital Signs Vital Sign Reading Time Taken Comments Blood Pressure 156/94 01/16/2025 1:21 PM EDT Pulse 63 01/16/2025 1:21 PM EDT Temperature 36.2 C (97.1 F) 01/16/2025 1:21 PM EDT Respiratory Rate - - Oxygen Saturation - - Inhaled Oxygen Concentration - - Weight 112 kg (247 lb) 01/16/2025 1:21 PM EDT Height 177.8 cm (5' 10 ) 01/16/2025 1:21 PM EDT Body Mass Index 35.44 01/16/2025 1:21 PM EDT documented in this encounter Patient Instructions * Patient Instructions* Michelle Richards MD - 01/16/2025 1:30 PM EDT Sulfasalazine Tablets What is this medication? SULFASALAZINE (sul fa JESSI a zeen) treats ulcerative colitis. It works by decreasing inflammation. It belongs to a group of medications called salicylates. This medicine may be used for other purposes; ask your health care provider or pharmacist if you have questions. COMMON BRAND NAME(S): Azulfidine, Sulfazine What should I tell my care team before I take this medication? They need to know if you have any of these conditions: Asthma Blood disorders or anemia [id number] dehydrogenase (G6PD) deficiency Intestinal obstruction Kidney disease Liver disease Porphyria Urinary tract obstruction An unusual reaction to sulfasalazine, sulfa medications, salicylates, or other medications, foods, dyes, or preservatives or trying to get Breast-feeding How should I use this medication? Take this medication by mouth with a full glass of water. Take it as directed on the prescription label at the same time every day. You can take it with or without food. If it upsets your stomach, take it with food. Keep taking it unless your care team tells you to stop. Talk to your care team about the use of this medication in children. While this medication may be prescribed for children as young as 6 years for selected conditions, precautions do apply. Patients over 65 years old may have a stronger reaction and need a smaller dose. Overdosage: If you think you have taken too much of this medicine contact a poison control center or emergency room at once. NOTE: This medicine is only for you. Do not share this medicine with others. What if I miss a dose? If you miss a dose, take it as soon as you can. If it is almost time for your next dose, take only that dose. Do not take double or extra doses. What may interact with this medication? Digoxin Folic acid This list may not describe all possible interactions. Give your health care provider a list of all the medicines, herbs, non-prescription drugs, or dietary supplements you use. Also tell them if you smoke, drink alcohol, or use illegal drugs. Some items may interact with your medicine. What should I watch for while using this medication? Visit your care team for regular checks on your progress. Tell your care team if your symptoms do not start to get better or if they get worse. You will need frequent blood and urine checks. This medication can make you more sensitive to the sun. Keep out of the sun. If you cannot avoid being in the sun, wear protective clothing and use sunscreen. Do not use sun lamps or tanning beds/booths. Drink plenty of water while taking this medication. What side effects may I notice from receiving this medication? Side effects that you should report to your care team as soon as possible: Allergic reactions--skin rash, itching, hives, swelling of the face, lips, tongue, or throat Aplastic anemia--unusual weakness or fatigue, dizziness, headache, trouble breathing, increased bleeding or bruising Dry cough, shortness of breath or trouble breathing Heart muscle inflammation--unusual weakness or fatigue, shortness of breath, chest pain, fast or irregular heartbeat, dizziness, swelling of the ankles, feet, or hands Infection--fever, chills, cough, sore throat, wounds that don't heal, pain or trouble when passing urine, general feeling of discomfort or being unwell Kidney injury--decrease in the amount of urine, swelling of the ankles, hands, or feet Liver injury--right upper belly pain, loss of appetite, nausea, light-colored stool, dark yellow orbrown urine, yellowing skin or eyes, unusual weakness or fatigue Rash, fever, and swollen lymph nodes Redness, blistering, peeling, or loosening of the skin, including inside the mouth Side effects that usually do not require medical attention (report to your care team if they continue or are bothersome): Dark yellow or orange saliva, sweat, or urine Dizziness Headache Loss of appetite Nausea Upset stomach Vomiting This list may not describe all possible side effects. Call your doctor for medical advice about side effects. You may report side effects to FDA at 8-894-MME-8699. Where should I keep my medication? Keep out of the reach of children and pets. Store at room temperature between 15 and 30 degrees C (59 and 86 degrees F). Get rid of any unused medication after the expiration date. To get rid of medications that are no longer needed or have : Take the medications to a medication take-back program. Check with your pharmacy or law enforcementto find a location. If you cannot return the medication, check the label or package insert to see if the medication should be thrown out in the garbage or flushed down the toilet. If you are not sure, ask your care team. If it is safe to put it in the trash, take the medication out of the container. Mix the medicationwith cat litter, dirt, coffee grounds, or other unwanted substance. Seal the mixture in a bag or container. Put it in the trash. NOTE: This sheet is a summary. It may not cover all possible information. If you have questions about this medicine, talk to your doctor, pharmacist, or health care provider. ?? 2023 Elsevier/Gold Standard (2022-05-28 00:00:00) documented in this encounter Progress Notes * Michelle Richards MD - 01/16/2025 1:30 PM EDTAddended by: MICHELLE RICHARDS on: 01/16/2025 05:28 PM Modules accepted: Orders * Michelle Richards MD - 01/16/2025 1:30 PM EDT Images from the original note were not included. Office Follow Up Date: 01/16/2025 Patient Name: Mack Bower Date of : 1940 Referring Physician: No ref. provider found Chief Complaint: Chief Complaint Patient presents with Follow-up Med Refill History of Present Illness: Mack Bower is a 84 y.o. male who is here today for follow up on RA Doing well clinically from rheumatoid arthritis perspective on methotrexate and low-dose prednisone. Methotrexate well tolerated and effective. No RA flares. No swollen joints. No side effects. He has intermittent neck and shoulder pain from OA. He has seen his PCP and had xrays, MRI, and hashad injections in his shoulder that have helped some. He has also had some improvement with PT and dry needling He is anticoagulated for A-fib. He was instructed to stop diclofenac, which he did. He admits to taking Aleve occasionally due to his shoulder and neck pain however. He follows with cardiology Dr. Franks He has had Mohs procedure on his forehead that showed Melanoma. He was told it was all removed. He follows with dermatology. He reports recurrence of squamous skin cancer all over arms and face. He has been referred to oncology Dr. Carney consider immunotherapy for this History of Present Illness Subjective Review of Systems: Review of Systems Constitutional: Negative for chills, fatigue, fever and unexpected weight loss. HENT: Negative for mouth sores, sinus pressure and sore throat. Eyes: Negative for pain and redness. Respiratory: Negative for cough and shortness of breath. Cardiovascular: Negative for chest pain. Gastrointestinal: Negative for abdominal pain, blood in stool, diarrhea, nausea, vomiting and GERD. Endocrine: Negative for polydipsia and polyuria. Genitourinary: Negative for dysuria, genital sores and hematuria. Musculoskeletal: Positive for arthralgias. Negative for back pain, joint swelling, myalgias, neck pain and neck stiffness. Skin: Positive for rash. Negative for bruise. Neurological: Negative for seizures, weakness, numbness and memory problem. Hematological: Negative for adenopathy. Does not bruise/bleed easily. Psychiatric/Behavioral: Negative for depressed mood. The patient is not nervous/anxious. Past Medical History: Past Medical History: Diagnosis Date Diabetes mellitus High risk medication use Melanoma in situ of lip Osteopenia Rheumatoid arthritis with rheumatoid factor of multiple sites without organ or systems involvement Past Surgical History: History reviewed. No pertinent surgical history. Family History: Family History Problem Relation Age of Onset Arthritis Other Social History: Social History Socioeconomic History Marital status: Tobacco Use Smoking status: Former Types: Cigarettes Smokeless tobacco: Never Vaping Use Vaping status: Never Used Substance and Sexual Activity Alcohol use: Not Currently Drug use: Never Medications: Current Outpatient Medications: albuterol sulfate HFA 108 (90 Base) MCG/ACT inhaler, Inhale 2 puffs Daily., Disp: , Rfl: apixaban (ELIQUIS) 5 MG tablet tablet, Take 1 tablet by mouth 2 (Two) Times a Day., Disp: , Rfl: bumetanide (BUMEX) 0.5 MG tablet, Take 1 tablet by mouth Every Morning., Disp: , Rfl: carvedilol (COREG) 6.25 MG tablet, TAKE 1 TABLET BY MOUTH TWICE DAILY MUST ADMINISTER WITH A MEAL/FOOD, Disp: , Rfl: doxazosin (CARDURA) 4 MG tablet, Take 1 tablet by mouth Daily., Disp: , Rfl: polyethylene glycol (MiraLax) 17 GM/SCOOP powder, Take 17 g by mouth Daily., Disp: , Rfl: potassium chloride (KLOR-CON M20) 20 MEQ CR tablet, Take 1 tablet by mouth Daily., Disp: , Rfl: pravastatin (PRAVACHOL) 40 MG tablet, Take 1 tablet by mouth Daily., Disp: , Rfl: predniSONE (DELTASONE) 1 MG tablet, Take 2 tablets by mouth Daily., Disp: 180 tablet, Rfl: 1 valsartan-hydrochlorothiazide (DIOVAN-HCT) 320-25 MG per tablet, Take 1 tablet by mouth Daily., Disp: , Rfl: verapamil ER (VERELAN) 240 MG 24 hr capsule, Take 1 capsule by mouth Every 12 (Twelve) Hours., Disp: , Rfl: sulfaSALAzine (AZULFIDINE ENTABS) 500 MG EC tablet, Take 1 tablet by mouth Take As Directed. 1 tab qd for 3 days, 1 tab bid for 3 days, 2 tabs po bid thereafter for arthritis after meals, Disp: 120 tablet, Rfl: 3 Allergies: No Known Allergies Objective Vital Signs: Vitals: 01/16/25 1321 BP: 156/94 BP Location: Right arm Patient Position: Sitting Cuff Size: Adult Pulse: 63 Temp: 97.1 ??F (36.2 ??C) TempSrc: Temporal Weight: 112 kg (247 lb) Height: 177.8 cm (70 ) PainSc: 0-No pain Body mass index is 35.44 kg/m??. Physical Exam: Physical Exam MUSCULOSKELETAL: No peripheral synovitis No tender joints. Rheumatoid nodule present thumb Tender Limited range of motion bilateral shoulders with some crepitus Crepitus bilateral knees. Slightly limited ROM cervical spine Complete joint exam was performed including the MCPs, PIPs, DIPs of the hands, wrists, elbows, shoulders, hips, knees and ankles. No soft tissue swelling or tenderness is present except as above. General: The patient is well-developed and well nourished. Cooperative, alert and oriented. Affect is normal. Hydration appears normal. HEENT: Normocephalic and atraumatic. Lids and conjunctiva are normal. Pupils are equal and sclera are clear. Oropharynx is clear NECK neck is supple without adenopathy, masses or thyromegaly. CARDIOVASCULAR: Regular rate and rhythm. No murmurs, rubs or gallops LUNGS: Effort is normal. Lungs are clear bilateral ABDOMEN: Not examined EXTREMITIES: Peripheral pulses are intact. No clubbing. SKIN: Extensive scattered erythematous with crusting lesions dorsal hands, forearms and face. No subcutaneous nodules. No digital ulcers. No sclerodactyly. No psoriasis NEUROLOGIC: Gait is normal. Strength testing is normal. No focal neurologic deficits Results Review: Labs: No results found for: GLUCOSE , BUN , CREATININE , EGFRRESULT , EGFR , BCR , K , CO2 , CALCIUM , PROTENTOTREF , ALBUMIN , BILITOT , AST , ALT No results found for: WBC , HGB , HCT , MCV , PLT No results found for: SEDRATE No results found for: CRP No results found for: QUANTIFERO , QUANTITB1 , QUANTITB2 , QUANTIFERN , QUANTIFERM , QUANTITBGLDP No results found for: RF No results found for: HEPBSAG , HEPAIGM , HEPBIGMCORE , HEPCVIRUSABY Procedures Assessment / Plan Rheumatoid arthritis involving multiple sites with positive rheumatoid factor Nodular; + rheumatoid factor and + CCP ; dx 2008 current: methotrexate, prednisone 2 mg daily. Specilaist oncology Dr Deepak Carney, dermatology RA in remission on MTX. No swollen joints. good prognosis. He reports recurrence of widespread squamous skin cancer all over arms and face. He has been referred to oncology Dr. Carney consider immunotherapy for this I discussed his case in detail today with Dr. Carney. Dr. Carney would prefer him to be off methotrexate if possible in light of potential for methotrexate to increased risk of skin cancer including squamous cancer. Dr. Carney is considering therapies including immune checkpoint inhibitor therapy for hissquamous carcinoma. Will therefore stop methotrexate and folic acid and start on sulfasalazine for RA, which is not immunosuppressive and does not increase risk of skin cancer/squamous cell carcinoma Continue low dose prednisone 2 mg daily (unable to taper historically without worsening) The patient is doing satisfactorily on the current medical therapy. Recent labs reviewed 01/02/2025 from [facility] and are stable. Plan will be to continue current medication, frequent intensive lab monitoring every 8 weeks (CBC, CMP) for toxicity monitoring. Standing lab order provided follow up in 4 months High risk medication use Immunosuppression due to drug therapy Sulfasalazine, chronic low-dose steroids Well-tolerated and effective I discussed the side effects of sulfasalazine, including but not limited to rash, GI upset, photosensitivity, renal stones, hematologic and liver abnormalities Risk and benefits of long-term steroids discussed including weight gain, osteopenia, ulcers, infection and, avascular necrosis Generalized osteoarthritis -OA shoulders, neck, knees minimize NSAID use was chronic anticoagulation Osteopenia dexa 07/21/18- stable osteopenia Repeat DEXA 07/25/2020: stable Dex ACL 11/03/22-slightly worsening osteopenia left femoral neck with elevated FRAX score 4% hip. DEXA performed 11/03/22-slightly worsening osteopenia left femoral neck hip with elevated FRAX score4% hip Recommend calcium vitamin D and weightbearing exercise. Consider addition of bisphosphonate, but relatively mild osteopenia with only slight worsening in 2years Monitor bone density every 2 years-- due 10/2024. 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 Carney considering immunotherapy/checkpoint inhibitor therapy for his widespread squamous cell carcinoma See above discussion Chronic anticoagulation Eliquis for Afib. Follows with cardiology Dr. Franks Discussed he should limit/avoid OTC NSAIDs as well, including Aleve Type 2 diabetes mellitus Management per PCP 1. Rheumatoid arthritis involving multiple sites with positive rheumatoid factor 2. High risk medication use 3. Immunosuppression due to drug therapy 4. joint terminal attack controller (current) use of systemic steroids Assessment & Plan Orders Placed This Encounter Procedures DEXA Bone Density Axial Comprehensive Metabolic Panel CBC Auto Differential C-reactive Protein Sedimentation Rate New Medications Ordered This Visit Medications predniSONE (DELTASONE) 1 MG tablet Sig: Take 2 tablets by mouth Daily. Dispense: 180 tablet Refill: 1 sulfaSALAzine (AZULFIDINE ENTABS) 500 MG EC tablet Sig: Take 1 tablet by mouth Take As Directed. 1 tab qd for 3 days, 1 tab bid for 3 days, 2 tabs po bid thereafter for arthritis after meals Dispense: 120 tablet Refill: 3 Follow Up: Return in about 4 months (around 05/19/2025). Discussed plan of care in detail with the patient today. Patient verbalized understanding and agrees. I confirm accuracy of unchanged data/findings which have been carried forward from previous visit. I have updated appropriately those that have changed. TIME SPENT: I spent 50 minutes caring for the patient on this date of service. This time includes time spent by me in the following activities: Preparing for the visit, obtaining records, reviewing/ordering tests and independently reviewing results, performing a medically appropriate history/exam, counseling and educating the patient/family/caregiver, ordering medications, tests, or procedures, and documenting information in the medical record. I also discussed his case with Dr. Carney as above Michelle Richards MD [facility] [place] documented in this encounter Plan of Treatment Upcoming Encounters Date Type Department Care Team (Late st Contact Info) Description 05/22/2025 11:[address] [facility] RHEUMATOLOGY DEXA [address] [phone] 05/22/2025 11:30 AM EST Office Visit [facility] RHEUM[facility]OLOGY [address] [phone] Chris Aponte, STATISTICAL ANALYST [address] [place] [address] Scheduled Orders Name Type Priority Associated Diagnoses Orde r Schedule Comprehensive Metabolic Panel Lab Routine Rheumatoid arthritis involving multiple sites with positive rheumatoid factor High risk medication use Immunosuppression due to drug therapy Every 8 Weeks for 6 Occurrences starting 01/16/2025 until 01/16/2026 CBC Auto Differential Lab Routine Rheumatoid arthritis involving multiple sites with positive rheumatoid factor High risk medication use Immunosuppression due to drug therapy Every 8 Weeks for 6 Occurrences starting 01/16/2025 until 01/16/2026 C-reactive Protein Lab Routine Rheumatoid arthritis involving multiple sites with positive rheumatoid factor High risk medication use Immunosuppression due to drug therapy Every 8 Weeks for 6 Occurrences starting 01/16/2025 until 01/16/2026 Sedimentation Rate Lab Routine Rheumatoid arthritis involving multiple sites with positive rheumatoid factor High risk medication use Immunosuppression due to drug therapy Every 8 Weeks for 6 Occurrences starting 01/16/2025 until 01/16/2026 DEXA Bone Density Axial Imaging Routine Rheumatoid arthritis involving multiple sites with positive rheumatoid factor joint terminal attack controller (current) use of systemic steroids Expected: 01/23/2025, Expires: 01/16/2026 documented as of this encounter Visit Diagnoses Diagnosis Rheumatoid arthritis involving multiple sites with positive rheumatoid factor- Primary High risk medication use Immunosuppression due to drug therapy joint terminal attack controller (current) use of systemic steroids documented in this encounter Care Teams Tip Puncher Relationship Specialty Start Date End Date Shahid Guthrie MD [address] [facility] [address] [place] [address] PCP - General Internal Medicine 12/24/23 documented as of this encounter
--- OUTSIDE RECORDS SUMMARY | 2025-01-16 13:30 | XMS_ITS | Encounter Summary ---
[facility] Address [address] [place] [address] Care Team Providers Care Termination Clerk Name Role Phone Shahid Guthrie MD Primary Care Provider [phone] Reason for Referral * Diagnostic Imaging (Routine) - Authorized Specialty Diagnoses / Procedures Referred By Contac t Referred To Contact Radiology Diagnoses Rheumatoid arthritis involving multiple sites with positive rheumatoid factor terminal carman (current) use of systemic steroids Procedures DEXA Bone Density Axial Michelle Richards MD [address] [place] [address] Phone: tel: fax: [facility]HEUM[facility] DEXA [address] [address] Phone: tel: fax: Referral ID Status Reason Start Date Expiration Date V isits Requested Visits Authorized [id number] Authorized 01/16/2025 04/17/2026 1 1 Reason for Visit * Reason Comments Follow-up Med Refill Encounter Details Date Type Department Care Team (Late st Contact Info) Description 01/16/2025 1:30 PM EDT Office Visit [facility] RHEUMATOLOGY [address] [address] Michelle Richards MD [address] [address] Rheumatoid arthritis involving multiple sites with positive rheumatoid factor (Primary Dx); High risk medication use; Immunosuppression due to drug therapy; terminal carman (current) use of systemic steroids Social History [...] these conditions: Asthma Blood disorders or anemia Tkqhvzc-5-wrivmtchj dehydrogenase (G6PD) deficiency Intestinal obstruction Kidney disease [...] may report side effects to FDA at [phone]. Where should I keep my medication? Keep [...] rheumatoid factor and + CCP ; dx GM 2008 current: methotrexate, prednisone 2 mg daily. [...] medical therapy. Recent labs reviewed 01/02/2025 from [facility] and are stable. 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 Immunosuppression due to drug therapy 4. correction (current) use of systemic steroids Assessment & [...] Dr. Carney as above Michelle Richards MD [facility] [place] documented in this encounter Plan of Treatment Upcoming Encounters Date Type Department Care Team (Late st Contact Info) Description 05/22/2025 11:00 AM EST Appointment [facility] RHEUMATOLOG[facility] DEXA [address] [address] 05/22/2025 11:30 AM EST Office Visit [facility] RHE[facility] [address] [address] Chris Aponte APRN 330 [facility] [address] [place] [address] Scheduled Orders Name Type Priority Associated Diagnoses [...] involving multiple sites with positive rheumatoid factor terminal carman (current) use of systemic steroids Expected: 01/23/2025, Expires: 01/16/2026 documented as of this encounter Visit Diagnoses Diagnosis Rheumatoid arthritis involving multiple sites with positive rheumatoid factor- Primary High risk medication use Immunosuppression due to drug therapy correction (current) use of systemic steroids documented in this encounter Care Teams Termination Clerk Relationship Specialty Start Date End Date Shahid Guthrie MD 1210 [facility] [address] [facility] [address] [place] [address] PCP - General Internal Medicine 12/24/23 documented as of this encounter
[2025-03-02] VITALS (17 sets, daily range): BP systolic 111–150; BP diastolic 49–83; PULSE 52–101; RESP 13–26; TEMP 36.6–37.1; O2SAT 87–96; BMI 35.2
--- OUTSIDE RECORDS SUMMARY | 2025-03-02 09:38 | XMS_ITS | Clinical Summary ---
Author Organization [facility] Address [address] [place] [address] Care Team Providers Care Manufacturing Laborer Name Role Phone Unavailable Primary Care Provider [...] Date Last Done Comments [facility]-Depression Screening 1942 [facility]-Infant/Child/Adol SDOH Screenings 1942 [facility]- SDOH Screenings 1960 [facility]-Adult SDOH Screenings 1960 [facility]-DTaP,Tdap,and Td Vaccines (1 - Tdap) 1961 [facility]-RSV Vaccine: 60+ Years or (1 - 1-dose 75+ series) 2017 [facility]-Pneumococcal Vaccine: 50+ Years (2 of 2 - PCV) 05/06/2021 05/06/2020 [id number] Vaccine ( - 2023- season) 2024 04/20/2022, [...] age to complete this topic [place] [address] REPLACED BY [facility]
--- OUTSIDE RECORDS SUMMARY | 2025-03-02 09:38 | XMS_ITS | Clinical Summary ---
[facility] Address [address] [place] [address] Care Team Providers Care Key Filer Name Role Phone Shahid Guthrie MD Primary Care Provider [phone] Allergies No known active allergies Medications pravastatin (PRAVACHOL) 40 MG tablet Take 1 tablet by mouth Daily. Active apixaban (ELIQUIS) 5 MG tablet tablet Take 1 tablet by mouth 2 (Two) Times a Day. Active bumetanide (BUMEX) 0.5 MG tablet Take 1 tablet by mouth Every Morning. 4 Active potassium chloride (KLOR-CON M20) 20 MEQ CR tablet Take 1 tablet by mouth Daily. 4 Active valsartan-hydro chlorothiazide (DIOVAN-HCT) 320-25 MG per tablet Take 1 tablet by mouth Daily. 4 Active carvedilol (COREG) 6.25 MG tablet TAKE 1 TABLET BY MOUTH TWICE DAILY MUST ADMINISTER WITH A MEAL/FOOD 4 Active doxazosin (CARDURA) 4 MG tablet Take 1 tablet by mouth Daily. 4 Active verapamil ER (VERELAN) 240 MG 24 hr capsule Take 1 capsule by mouth Every 12 (Twelve) Hours. 4 Active polyethylene glycol (MiraLax) 17 GM/SCOOP powder Take 17 g by mouth Daily. Active albuterol sulfate HFA 108 (90 Base) MCG/ACT inhaler Inhale 2 puffs Daily. 5 Active predniSONE (DELTASONE) 1 MG tablet Take 2 tablets by mouth Daily. 180 tablet 1 5 Active sulfaSALAzine (AZULFIDINE ENTABS) 500 MG EC tablet Take 1 tablet by mouth Take As Directed. 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 Little hx of melanoma removed from lip and forehead Continues to follow with Dermatology Chronic anticoagulation 12/24/2023 Assessment & Plan (12/24/2023 10:40 AM EDT): Eliquis for Afib. Follows with cardiology Dr. Franks who he just saw last week Discussed he should limit/avoid OTC NSAIDs as well, including Aleve Type 2 diabetes mellitus wit h hyperglycemia, without long-term current use of insulin 12/24/2023 Assessment & Plan (12/24/2023 10:40 AM EDT): Management per PCP Osteopenia 12/23/2023 Assessment & Plan (12/24/2023 8:45 AM EDT): dexa 07/21/18- stable osteopenia Repeat DEXA 07/25/2020: stable Dex ACL 11/03/22-slightly worsening osteopenia left femoral neck with elevated FRAX score 4% hip. DEXA performed 11/03/22-slightly worsening osteopenia left femoral neck hip with elevated FRAX score 4% hip Recommend calcium vitamin D and weightbearing exercise. Consider addition of bisphosphonate, but relatively mild osteopenia with only slight worsening in 2 years Plan for bone density every 2 years for continued monitoring- due 10/2024 High risk medication use 12/23/2023 Assessment & Plan (12/24/2023 10:39 AM EDT): MTX, chronic low-dose steroids Well-tolerated and effective Continue regular lab monitoring every 8-12 weeks for toxicity monitoring. Risk include but are not limited to severe liver damage so can be fatal, the possible need for liver biopsy, bone marrow suppression that can lead to dangerously low blood counts, GI side effects including mouth sores and diarrhea, fatigue, and the rare risk of severe pulmonary complications. There should be no alcohol consumed with methotrexate. Methotrexate can cause severe abnormalities with his mother father is taking the medication and thus must be avoided if is a possibility. All medication is to be taken 1 day a week only. The need for Q 8-12-week labs and the need for folic acid supplement were discussed. 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 RA in remission on MTX. No swollen joints. good prognosis. Methotrexate refilled. New standing order provided. Continue methotrexate 8 tablets weekly and folic acid. Well tolerated. Continue low dose prednisone 2 mg daily. Medications refilled Ideally he would taper fully off prednisone, but he does not think he is able to presently The patient is doing satisfactorily on the current medical therapy. Recent labs reviewed 12/20/2023 from [facility] and are stable. Plan will be to continue current medication, frequent intensive lab monitoring every 8-12 weeks (CBC, CMP) for toxicity monitoring. Standing lab order provided Slight aching and triggering of the left second finger. Recommend topical diclofenac gel follow up in 4 months Encounters Date Type Department Care Team Description 01/16/2025 1:30 PM EDT Office Visit [facility] RHEUMATOLOGY [address] [place] [phone] Ok Richards MD Rheumatoid arthritis involving multiple sites with positive rheumatoid factor (Primary Dx); High risk medication use; Immunosuppression due to drug therapy; MCFP (current) use of systemic steroids 01/16/[address] [facility] RHE[facility] [address] [address] Ok Richards MD Advice Only 01/16/2025 Travel 01/01/[address] [facility] [address] [address] Ok Richards MD 12/16/[address] [facility] [address] [address] Ok Richards MD from Last 3 Months Immunizations Immunization Administration Dates Next Due Influenza, Unspecified 05/14/2017 Family History Medical History Relation Name Comments Arthritis Other FAMILY HISTORY Relation Name Status Comments Other FAMILY HISTORY Social History Tobacco Use Types Packs/Day Years [...] Mass Index 35.44 01/16/2025 1:21 PM EDT Plan of Treatment Upcoming Encounters Date Type Department Care Team (Late st Contact Info) Description 05/22/2025 11:[address] [facility] RHEUMATOLOGY DEXA [address] [address] 05/22/2025 11:30 AM EST Office Visit [facility] R[facility] [address] [address] Chris Aponte, CORPORATE RELATIONS MANAGER [address] [phone] Health Maintenance Due Date Last Done Comments DIABETIC EYE EXAM 1950 DIABETIC FOOT EXAM 1950 URINE MICROALBUMIN-CREATININ E RATIO (uACR) 1950 RSV Vaccine - Adults (1 - 1- dose 75+ series) 2017 Pneumococcal Vaccine 50+ (2 of 2 - PCV) 05/06/2021 05/06/2020 ANNUAL WELLNESS VISIT 12/15/2023 HEMOGLOBIN A1C 12/15/2023 COVID-19 Vaccine (8 - Pfizer risk 2023- season) 2024 04/06/2024, 06/15/2023, 04/20/2022, Additional history exists INFLUENZA VACCINE 04/18/2025 04/06/2024, , 04/21/2021, Additional history exists TDAP/TD VACCINES (2 - Td or Tdap) 11/19/2034 025 ZOSTER VACCINE Completed 09/03/2022, 05/28/2022 Procedures Procedure Name Priority Date/Time Associated Diagnosis Comments SCANNED - LABS 01/02/2025 SCANNED - LABS 01/02/2025 from Last 3 Months Results * LABS SCANNED (01/02/2025) Only the most recent of2 resultswithin the time period is included. Ok Richards MD LAB BLOOD ORDERABLES Final Result from Last [address] [facility] & B Care Teams Key Filer Relationship Specialty Start Date End Date Shahid Guthrie MD 1210 [facility] [address] [address] PCP - General Internal Medicine 12/24/23
--- OUTSIDE RECORDS SUMMARY | 2025-03-02 09:38 | XMS_ITS | Encounter Summary ---
[facility] Address [address] [place] [id number] Care Team Providers Care Sexual Assault Social Worker Name Role Phone Shahid Guthrie MD Primary Care Provider [phone] Reason for Visit * Reason Comments Med Refill Encounter Details Date Type Department Care Team (Late st Contact Info) Description 01/01/2025 Refill [facility] R[facility] [address] [address] Ok Richards MD 330 [place] [phone] Social History Tobacco Use Types Packs/Day Years [...] on file documented as of this encounter Miscellaneous Notes * Telephone Encounter - Ok Richards MD - 01/02/2025 12:54 PM EDT Need all labs done at [facility] this month for review prior to refill methotrexate. Have only received sed rate so far. * Telephone Encounter - Lovely Altman MA - 01/02/2025 12:20 PM EDT Rx Refill Note Requested Prescriptions Pending Prescriptions Disp Refills methotrexate 2.5 MG tablet [Pharmacy Med Name: Methotrexate 2.5 MG Oral Tablet] 96 tablet 0 Sig: TAKE 8 TABLETS BY MOUTH ONCE A WEEK Last office visit with prescribing clinician: 05/03/2024 Last telemedicine visit with prescribing clinician: Visit date not found Next office visit with prescribing clinician: 01/16/2025 01/02/2025 Would you like a call back once the refill request has been completed: [] Yes [] No If the office needs to give you a call back, can they leave a voicemail: [] Yes [] No Forwarding rx request to provider due to not meeting system's lab protocols. We received sed rate result that was done today but we are waiting on remaining lab results. Lovely Altman MA 01/02/25, 12:20 EDT documented in this encounter Plan of Treatment Upcoming Encounters Date Type Department Care Team (Late st Contact Info) Description 05/22/2025 11:00 AM EST Appointment [facility] RHEUMATOLOGY DEXA [address] [address] 05/22/2025 11:30 AM EST Office Visit [facility] RHEUMATOLOGY [address] [phone] Chris Aponte APRN [address] [phone] documented as of this encounter Visit Diagnoses Not on filedocumented in this encounter Care Teams Sexual Assault Social Worker Relationship Specialty Start Date End Date Shahid Guthrie MD 1210 [facility] [address] [place] [address] PCP - General Internal Medicine 12/24/23 documented as of this encounter
--- OUTSIDE RECORDS SUMMARY | 2025-03-02 09:38 | XMS_ITS | Encounter Summary ---
[facility] Address [address] [place] [id number] Care Team Providers Care Vacuum Cleaner Operator Name Role Phone Shahid Guthrie MD Primary Care Provider [phone] Reason for Visit * Reason Onset Date Comments Advice Only 01/16/2025 Encounter Details Date Type Department Care Team (Late st Contact Info) Description 01/16/2025 Telephone [facility] RHEUMATOLOGY [address] [address] Ok Richards MD [address] [phone] Advice Only Social History Tobacco Use Types Packs/Day Years [...] encounter Miscellaneous Notes * Telephone Encounter - Cata Laughlin RN - 01/18/2025 1:06 PM EDT PT. Called back. I went over message from ADB regarding going off MTX and Folic and starting the SSZ. Pt. Verbalized understanding;. * Telephone Encounter - Cata Laughlin RN - 01/17/2025 2:49 PM EDT LVM for pt to call us back. 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 I discussed his case in detail today with oncology Dr. Carney. Dr. Carney would prefer him to be off methotrexate if possible in light of potential for methotrexate to increased risk of skin cancer including squamous cancer. Dr. Carney is considering therapies including immune checkpoint inhibitor therapy for his squamous carcinoma. Therefore recommend he stop methotrexate and folic acid and start on sulfasalazine for RA, which isnot immunosuppressive and does not increase risk of skin cancer/squamous cell carcinoma Sulfasalazine prescription sent to his pharmacy and handout placed in his chart. * Telephone Encounter - Dontrell Galvin RegSched Rep - 01/16/2025 1:22 PM EDT Provider is asking for a return call from [facility] regarding this patient. Dr. Deepak Carney [phone] -ZC documented in this encounter Plan of Treatment Upcoming Encounters Date Type Department Care Team (Late st Contact Info) Description 05/22/2025 11:00 AM EST Appointment [facility] RHEUMATOLOGY DEXA [address] [phone] 05/22/2025 11:30 AM EST Office Visit [facility] RHEUMATOLOGY [address] [place] [phone] Chris Aponte, LEONEL 330 [facility] [address] [place], [place] [phone] documented as of this encounter Visit Diagnoses Not on filedocumented in this encounter Care Teams Vacuum Cleaner Operator Relationship Specialty Start Date End Date Shahid Guthrie MD 1210 [facility] [address] [place] [address] PCP - General Internal Medicine 12/24/23 documented as of this encounter
--- OUTSIDE RECORDS SUMMARY | 2025-03-02 09:38 | XMS_ITS | Encounter Summary ---
Author Organization [facility] Address [address] [place] [address] Care Team Providers Care Skilled Nursing Professional Name Role Phone Shahid Guthrie MD Primary Care Provider [phone] Encounter Details Date Type Department Care Team (Latest Contact Info) Description 01/16/2025 Travel Social History Tobacco Use Types Packs/Day Years [...] on file documented as of this encounter Plan of Treatment Upcoming Encounters Date Type Department Care Team (Late st Contact Info) Description 05/22/2025 11:00 AM EST Appointment [facility] RHEUMATOLOGY DEXA [address] [phone] 05/22/2025 11:30 AM EST Office Visit [facility] RHEUMATOLOGY [address] [place] [phone] Chris Aponte APRN [address] [facility] [address] [place] [address] documented as of this encounter Visit Diagnoses Not on filedocumented in this encounter Care Teams Skilled Nursing Professional Relationship Specialty Start Date End Date Shahid Guthrie MD 1210 [facility] [address] [place] [address] PCP - General Internal Medicine 12/24/23 documented as of this encounter
--- NOTE | 2025-03-02 09:40 | ECG_ITS ---
APPROVED REPORT Exam: Resting ECG HR:81 bpm ECG Measurements Heart Rate 81 AXES QRSd 111 QRS -29 QT 382 T 27 QTc 420 Conclusion ATRIAL FIBRILLATION BORDERLINE LEFT AXIS DEVIATION [QRS AXIS < -20] MODERATE INTRAVENTRICULAR CONDUCTION DELAY [110+ ms QRS DURATION] NONSPECIFIC ST & T-WAVE ABNORMALITY ABNORMAL RHYTHM ECG UNCONFIRMED REPORT Electronically signed by : ESTEVAN SOMMER, 03/03/2025 06:55:38
--- NOTE | 2025-03-02 09:43 | CT_ITS ---
FINAL REPORT TECHNIQUE: Thin section axial CT with contrast with multiplanar reconstruction This study was performed with techniques to keep radiation doses as low as reasonably achievable, (ALARA). Individualized dose reduction techniques using automated exposure control or adjustment of mA and/or kV according to the patient''s size were employed. CLINICAL HISTORY: shortness of breath COMPARISON: CT chest 01/29/2025 FINDINGS: Significant respiratory motion artifact limits assessment of the peripheral pulmonary branches. No central pulmonary embolism identified. Thoracic aorta shows no dissection or aneurysm. There is mild atelectasis without evidence of pneumonia or edema. There is no significant pleural effusion. There is no significant pericardial effusion. Scattered borderline enlarged mediastinal lymph nodes are considered benign reactive. There is a small hiatal hernia. Limited images of the upper abdomen demonstrate bilateral renal cysts. IMPRESSION: No gross central pulmonary embolism. No acute lung disease. Reviewed, Interpreted and Dictated by Sol Kaye MD Transcribed by Ada Neville Authenticated and [facility]
--- NOTE | 2025-03-02 09:44 | XR_ITS ---
FINAL REPORT CLINICAL HISTORY: shortness of breath COMPARISON: None FINDINGS: A single view of the chest was obtained. No acute pulmonary opacity is present. There is no evidence of effusion or pneumothorax. Mediastinum is unremarkable. Heart size is normal. IMPRESSION: No acute abnormality. Reviewed, Interpreted and Dictated by Sol Kaye MD Transcribed by Ada Neville Authenticated and . [facility]
--- NOTE | 2025-03-02 09:48 | PC.NURSE ---
RAD in room at this time
[2025-03-02 09:53] LABS: Coronavirus 19, PCR Not Detected (NotDetected); Influenza A, PCR Not Detected (NotDetected); Influenza B, PCR Not Detected (NotDetected)
[2025-03-02 09:56] LABS: Hematocrit 38.7 % (42.0-52.0); Hemoglobin 13.4 g/dL (14.1-18.0); Immature Granulocytes % 0.5 %; Mean Corpuscular HGB Conc 34.6 g/dL (31.8-35.4); Mean Corpuscular Hemoglobin 31.3 pg (27.0-31.2); Mean Corpuscular Volume 90.4 fl (80-94); Nucleated Red Blood Cells % 0 %; Platelet Count 246 K/mm3 (142-424); Red Blood Count 4.28 M/mm3 (4.60-6.20); Red Cell Distribution Width-SD 47.8 fL; White Blood Count 10.7 K/mm3 (4.8-10.8)
--- NOTE | 2025-03-02 10:00 | HMH.EDGENADL ---
Discharge Plan Disposition Patient Disposition: Admitted Condition: Fair Clinical Impressions Clinical Impression: Weakness, Hypokalemia Discharge ED Provider: Jayda Lambert General Adult HPI General Chief complaint: Shortness of Breath/Dyspnea Stated complaint: SOA,aches all over,trouble walking Time Seen by Provider: 03/02/25 09:33 Mode of Arrival: Ambulatory Source of Information: Patient and Relative Description of Symptoms (Recalled from ER Triage Doc. by RN): patient presents to the Er today for worsening weakness over the last 2 days as well as shortness of breath. Patient stated he was walking all around [place] on Wednesday but struggles to get by without a wheelchair today. patient has a history of skin cancer, high blood pressure, diabetes, and afib on blood thinners. History of Present Illness HPI narrative: Patient is an otherwise healthy 84-year-old gentleman who presented to the emergency department with shortness of breath and weakness for the last 2 days. Patient states that 2 days ago he was able to ambulate without difficulties and today patient has been having more difficulties due to shortness of breath as well as generalized weakness. Patient reports subjective fevers, no objective fevers. Patient denies any cough or other upper respiratory symptoms. Patient denies any chest pain. Patient denies any abdominal pain nausea vomiting or diarrhea. Patient reports compliance with his medications. Patient denies any history of blood clots. Patient does have a history of A-fib and is on blood thinners. Patient denies any recent falls. Patient's brother is at bedside states that patient is typically able to get around on his own patient has had a significant decline in the last 2 days. Patient does have a history of skin cancer is not on any chemotherapy other medications for this. Brother does state that patient was recently seen by his oncologist and 2 medications were changed. Per patient's medication list he is currently on Bumex, blood thinners, statin and diabetic and HTN medications. Related Data Home Medications ?Medication ?Instructions ?Recorded ?Confirmed naproxen sodium 220 mg tablet 220 mg PO BIDP PRN Mild Pain 04/11/24 03/02/25 (Aleve) (Scale Score 1-4) prednisone 1 mg tablet 2 mg PO DAILY 04/11/24 03/02/25 sulfasalazine 500 mg 1 g PO BID 01/30/25 03/02/25 tablet,delayed release albuterol sulfate 90 mcg/actuation 2 inh inhalation DAILY 03/02/25 03/02/25 aerosol inhaler bumetanide 1 mg tablet 1 mg PO DAILY 03/02/25 03/02/25 carvedilol 6.25 mg tablet (Coreg) 6.25 mg PO BIDWMEAL 03/02/25 03/02/25 empagliflozin 25 mg-linagliptin 5 1 tab PO DAILY 03/02/25 03/02/25 mg tablet (Glyxambi) polyethylene glycol 3350 17 17 g PO DAILY 03/02/25 03/02/25 gram/dose oral powder (Miralax) potassium chloride 20 mEq 20 meq PO DAILY 03/02/25 03/02/25 tablet,extended release(part/cryst) pravastatin 40 mg tablet 40 mg PO DAILY 03/02/25 03/02/25 valsartan 320 1 tab PO DAILY 03/02/25 03/02/25 mg-hydrochlorothiazide 25 mg tablet Previous Rx's ?Medication ?Instructions ?Recorded doxazosin 4 mg tablet (Cardura) 4 mg PO DAILY #30 tabs 10/09/24 verapamil 240 mg 24 hr 240 mg PO BID #60 caps 10/09/24 capsule,extended release apixaban 5 mg tablet 5 mg PO BID 30 days #60 tabs 12/27/24 Allergies Allergy/AdvReac Type Severity Reaction Status Date / Time amlodipine Allergy Mild edema Verified 02/27/25 10:57 [facility] Disclaimer: The information contained in this section may have been updated after the patient was seen, as this information can be updated by other users. Medical History Renal cyst Hyperlipidemia Skin cancer Rheumatoid arthritis Diabetes mellitus, type 2 Diplopia Hypertension Night sweats Back pain Aortic valve sclerosis Diastolic dysfunction Abnormal electrocardiogram [ECG] [EKG] Atrial fibrillation Paroxysmal atrial fibrillation Melanoma Diplopia Surgical History History of right cataract surgery History of left cataract surgery H/O hernia repair 10-20 years ago Family History Other Brain cancer Family history of asthma Family history of diabetes mellitus type II Liver cancer Lung cancer Skin cancer Social History (Updated 03/02/25 @ 16:23 by Lakesha Brown RN) Smoking Status: Never smoker alcohol intake: never current occupational status: retired Travel in the last 8 weeks?: None caffeine: Yes Have you lived/traveled outside [place] in past 30 days?: No Contact w/someone who lives/traveled outside US past 30 days?: No Exposure to someone with infectious disease in past 14 days?: No Do you have a fever (greater than 100.4 F or 38 C)?: No Have you tested positive for COVID-19?: No Exposed to someone with COVID-19 in past 14 days?: No Do you have a sore throat?: No Do you have a cough?: No Do you have any weakness?: No Are you experiencing any nausea/vomitting?: No Do you have any diarrhea?: No Are you experiencing any unusual bleeding?: No Do you have any muscle aches/pain?: No Do you have any abdominal pain?: No Are you experiencing loss of taste or smell?: No Other Medical History Have you received the Flu Vaccine for this season: No Have you received the Pneumonia Vaccine: Yes ROS Obtained: Yes All systems reviewed & no additional complaints except as documented and Yes Systems reviewed as appropriate & no additional complaints except as documented Physical Exam General General appearance: alert and in no apparent distress Head Head exam: atraumatic, normocephalic and normal inspection Eye Eye exam: Present normal appearance, PERRL and EOMI; Absent scleral icterus ENT ENT exam: Present normal exam and normal external ear exam Neck Neck exam: Present normal inspection and full ROM Chest Chest inspection: Present normal inspection and symmetric chest wall rise Respiratory Respiratory exam: Present normal lung sounds bilaterally; Absent respiratory distress or wheezes Cardiovascular Cardiovascular exam: Present regular rate, normal rhythm and normal heart sounds Abdominal Exam Abdominal exam: Present soft and distention; Absent tenderness, guarding or rebound Extremities Exam Extremities exam: Present normal inspection and full ROM Back Exam Back exam: Present normal inspection and full ROM Neurological Exam Neurological exam: Present alert and oriented X3 Psychiatric Psychiatric exam: Present normal affect and normal mood Skin Skin exam: Present warm and dry Medical Decision Making Medical Records Medical records reviewed: Yes I reviewed the patient's medical records. Screening: Per USPSTF and CDC recommendations, given the prevalence of disease in our region, it is our hospital?s policy to screen for HIV and viral Hepatitis for all patients aged 18 and over and those with ongoing risk factors. Main Inquiry Pt receiving controlled substance: No Vital Signs: 03/02/25 09:42 03/02/25 09:47 03/02/25 10:01 Temperature 98.8 F Temperature Source Oral Pulse Rate 63 Pulse Rate [Right Radial] 101 H Respiratory Rate 18 26 H Blood Pressure 111/51 L Blood Pressure [Right Arm] 133/67 Blood Pressure Mean [Right Arm] 89 Blood Pressure Source Blood Pressure Source [Right Arm] Automatic Cuff Blood Pressure Position [Right Arm] Sitting 02 Sat by Pulse Oximetry 93 L 93 L 96 Oxygen Delivery Method Room Air Room Air Room Air 03/02/25 10:43 03/02/25 11:01 03/02/25 11:30 Temperature Temperature Source Pulse Rate 87 68 82 Pulse Rate [Right Radial] Respiratory Rate 19 14 24 Blood Pressure 129/73 128/60 129/58 L Blood Pressure [Right Arm] Blood Pressure Mean [Right Arm] Blood Pressure Source Blood Pressure Source [Right Arm] Blood Pressure Position [Right Arm] 02 Sat by Pulse Oximetry 95 95 95 Oxygen Delivery Method Room Air 03/02/25 12:01 03/02/25 12:30 03/02/25 13:02 Temperature Temperature Source Pulse Rate 66 70 67 Pulse Rate [Right Radial] Respiratory Rate 21 26 H 16 Blood Pressure 125/72 127/49 L 125/58 L Blood Pressure [Right Arm] Blood Pressure Mean [Right Arm] Blood Pressure Source Blood Pressure Source [Right Arm] Blood Pressure Position [Right Arm] 02 Sat by Pulse Oximetry 94 L 96 87 L Oxygen Delivery Method 03/02/25 13:30 03/02/25 14:01 03/02/25 14:31 Temperature Temperature Source Pulse Rate 66 52 L 56 L Pulse Rate [Right Radial] Respiratory Rate 14 13 Blood Pressure 129/67 117/68 144/68 H Blood Pressure [Right Arm] Blood Pressure Mean [Right Arm] Blood Pressure Source Blood Pressure Source [Right Arm] Blood Pressure Position [Right Arm] 02 Sat by Pulse Oximetry 95 95 95 Oxygen Delivery Method 03/02/25 14:59 03/02/25 15:01 03/02/25 15:15 Temperature 98.0 F Temperature Source Pulse Rate 67 77 Pulse Rate [Right Radial] Respiratory Rate 20 Blood Pressure 144/74 H 144/73 H Blood Pressure [Right Arm] Blood Pressure Mean [Right Arm] Blood Pressure Source Automatic Cuff Blood Pressure Source [Right Arm] Blood Pressure Position [Right Arm] 02 Sat by Pulse Oximetry 94 L Oxygen Delivery Method Room Air Room Air 03/02/25 15:34 03/02/25 16:01 Temperature Temperature Source Pulse Rate 65 60 Pulse Rate [Right Radial] Respiratory Rate Blood Pressure 134/55 L 139/65 Blood Pressure [Right Arm] Blood Pressure Mean [Right Arm] Blood Pressure Source Blood Pressure Source [Right Arm] Blood Pressure Position [Right Arm] 02 Sat by Pulse Oximetry 96 92 L Oxygen Delivery Method Lab Data Lab results reviewed: Yes I reviewed the patient's lab results. Lab Results 03/02/25 09:43: SARS-CoV-2 (PCR) Not detected, Influenza Type A (PCR) Not detected, Influenza Type B (PCR) Not detected, RSV (PCR) Not detected, Rhinovirus (PCR) Not detected 03/02/25 09:48: WBC 10.7, RBC 4.28 L, Hgb 13.4 L, Hct 38.7 L, MCV 90.4, MCH 31.3 H, MCHC 34.6, RDW 14.4, Plt Count 246, MPV 10.3, Neut % (Auto) 75.8, Lymph % (Auto) 11.3, [place] % (Auto) 10.0 H, Eos % (Auto) 1.8, Baso % (Auto) 0.6, Neut # (Auto) 8.1 H, Lymph # (Auto) 1.2, [place] # (Auto) 1.1 H, Eos # (Auto) 0.2, Baso # (Auto) 0.1, PT 12.8 H, INR 1.17 H, Sodium 136, Potassium 2.8 L*, Chloride 97 L, Carbon Dioxide 29, Anion Gap 12.8, BUN 14, Creatinine 0.90, Estimated Creat Clear 90, Estimated GFR 81, Est GFR ( Amer) 98, Glucose 170 H, Calcium 8.7, Phosphorus 3.3, Magnesium 2.0, Total Bilirubin 0.6, AST 23, ALT 17, Alkaline Phosphatase 79, Troponin I 0.02, NT-Pro-B Natriuret Pep 473 H, Total Protein 7.6, Albumin 4.2, Globulin 3.4 H, Albumin/Globulin Ratio 1.2 03/02/25 12:59: Troponin I 0.02 03/02/25 13:07: Urine Color Yellow, Urine Appearance Clear, Urine pH 7.0, Ur Specific [place] <= 1.005, Urine Protein Negative, Urine Glucose (UA) 3+, Urine Ketones Trace, Urine Blood Negative, Urine Nitrate Negative, Urine Bilirubin Negative, Urine Urobilinogen 0.2, Ur Leukocyte Esterase Negative, Urine RBC None, Urine WBC Occasional, Ur Squamous Epith Cells None, Urine Bacteria Trace 03/02/25 15:22: Troponin I 0.03 03/03/25 06:41 03/03/25 06:41 Orders (Tests/Meds): ED MEDICATIONS Discontinued Medications Generic Name Dose Route Start Last Admin Trade Name Freq PRN Reason Stop Dose Admin Acetaminophen 650 mg 03/02/25 18:14 03/03/25 11:53 Acetaminophen 325mg Tab PO 04/01/25 18:13 650 mg Q4HP PRN Administration Fever or Mild Pain (1-3) Apixaban 5 mg 03/02/25 21:00 03/03/25 09:17 Apixaban 5mg Tablet PO 04/01/25 20:59 5 mg BID MARCO ANTONIO Administration Aspirin 325 mg 03/02/25 18:06 03/02/25 20:44 Aspirin 325mg Tablet PO 03/02/25 18:07 325 mg ONCE ONE Administration Aspirin 81 mg 03/03/25 09:00 03/03/25 09:17 Aspirin Ec 81mg Tablet PO 04/02/25 08:59 81 mg DAILY MARCO ANTONIO Administration Atorvastatin Calcium 40 mg 03/03/25 21:00 Atorvastatin 40mg Tablet PO 04/02/25 20:59 HS MARCO ANTONIO Bumetanide 1 mg 03/03/25 09:00 03/03/25 09:17 Bumetanide 1 Mg Tablet PO 04/02/25 08:59 1 mg DAILY MARCO ANTONIO Administration Carvedilol 6.25 mg 03/03/25 07:30 03/03/25 09:17 Carvedilol 6.25mg Tablet PO 04/02/25 07:29 6.25 mg BIDWMEAL MARCO ANTONIO Administration Clopidogrel Bisulfate 75 mg 03/03/25 09:00 03/03/25 09:17 Clopidogrel 75mg Tab PO 04/02/25 08:59 75 mg DAILY MARCO ANTONIO Administration Doxazosin Mesylate 4 mg 03/03/25 09:00 03/03/25 09:17 Doxazosin 4mg Tab PO 04/02/25 08:59 4 mg DAILY MARCO ANTONIO Administration Potassium Chloride/Water 100 mls @ 100 mls/hr 03/02/25 10:15 03/02/25 12:50 Potassium Chloride 10meq/100ml Ivpb IV 03/02/25 13:14 100 mls/hr Q1H MARCO ANTONIO Administration Sodium Chloride 500 mls @ 999 mls/hr 03/02/25 10:15 03/02/25 10:21 Sod Chlor 0.9% 1000ml Bag IV 03/02/25 10:45 999 mls/hr .Q31M ONE Administration Insulin Human Lispro 0 unit 03/02/25 21:00 03/03/25 10:59 Humalog 100 Units/Ml 10ml Vial ([facility]) SUBCUT 04/01/25 20:59 Not Given ACHS MARCO ANTONIO Protocol Iopamidol 80 ml 03/02/25 10:35 03/02/25 10:36 Iopamidol-370 (76%);100ml Bottle IV 03/02/25 10:36 80 ml ONCE ONE Administration Iopamidol 80 ml 03/02/25 19:30 03/02/25 19:32 Iopamidol-370 (76%);100ml Bottle IV 03/02/25 19:31 80 ml ONCE ONE Administration Non-Formulary Medication 240 mg 03/02/25 21:00 03/02/25 20:45 Verapamil PO 04/01/25 20:59 240 mg BID MARCO ANTONIO Administration Non-Formulary Medication 1 gm 03/02/25 21:00 03/03/25 09:18 Sulfasalazine PO 04/01/25 20:59 Not Given BID MARCO ANTONIO Non-Formulary Medication 1 tab 03/03/25 09:00 03/03/25 09:19 Empagliflozin-Linagliptin [Glyxambi] PO 04/02/25 08:59 Not Given DAILY MARCO ANTONIO Ondansetron HCl 4 mg 03/02/25 18:14 Ondansetron 4mg/2ml Vial IV 04/01/25 18:13 Q6HP PRN Nausea Polyethylene Glycol 17 gm 03/03/25 09:00 03/03/25 09:18 Polyethylene Glycol 3350 238gm Powder PO 04/02/25 08:59 Not Given DAILY MARCO ANTONIO Potassium Chloride 40 meq 03/02/25 10:13 03/02/25 10:21 Potassium Chloride 20meq Tab PO 03/02/25 10:14 40 meq ONCE ONE Administration Potassium Chloride 20 meq 03/02/25 14:02 03/02/25 14:11 Potassium Chloride 20meq Tab PO 03/02/25 14:03 20 meq ONCE ONE Administration Potassium Chloride 40 meq 03/02/25 21:15 03/03/25 06:01 Potassium Chloride 20meq Tab PO 03/03/25 05:16 40 meq Q4H MARCO ANTONIO Administration Prednisone 2 mg 03/03/25 09:00 03/03/25 09:17 Prednisone 1mg Tab PO 04/02/25 08:59 2 mg DAILY MARCO ANTONIO Administration Sodium Chloride 10 ml 03/02/25 10:35 03/02/25 10:36 Sodium Chloride 0.9% 10ml Syr (Rad Only) IV 03/02/25 10:36 10 ml ONCE ONE Administration Sodium Chloride 50 ml 03/02/25 10:35 03/02/25 10:36 0.9 % Sodium Chloride 50 Ml Vial IV 03/02/25 10:36 50 ml ONCE ONE Administration Sodium Chloride 50 ml 03/02/25 19:30 03/02/25 19:32 0.9 % Sodium Chloride 50 Ml Vial IV 03/02/25 19:31 50 ml ONCE ONE Administration Sodium Chloride 10 ml 03/02/25 19:30 03/02/25 19:32 Sodium Chloride 0.9% 10ml Syr (Rad Only) IV 03/02/25 19:31 10 ml ONCE ONE Administration Sodium Chloride 10 ml 03/03/25 11:58 Sodium Chloride 0.9% 10ml Flush Syringe IV 04/02/25 11:57 NEEDED PRN Maintain IV Site Vancomycin HCl 125 mg 03/03/25 09:00 03/03/25 09:24 Vancomycin Hcl 50mg/Ml 150ml Kit PO 03/12/25 21:01 125 mg QID MARCO ANTONIO Administration Verapamil HCl 240 mg 03/03/25 09:00 03/03/25 09:17 Verapamil Sr 120mg Tablet PO 04/02/25 08:59 240 mg BID MARCO ANTONIO Administration ORDERS Category Date Time Status CT angio chest PE protocol Stat Cat Scan 03/02/25 09:43 Completed CXR --portable [XR chest portable] Stat Exams 03/02/25 09:44 Completed BNP [NT Pro Brain Natriuretic Pep.] Stat Lab 03/02/25 09:48 Completed CBC w/Auto Diff [Complete Blood Count Auto Diff] Stat Lab 03/02/25 09:48 Completed CMP [Comprehensive Metabolic Panel] Stat Lab 03/02/25 09:48 Completed MAG [Magnesium] Stat Lab 03/02/25 09:48 Completed Mini Respiratory Panel Stat Lab 03/02/25 09:43 Completed PHOS [Phosphorous] Stat Lab 03/02/25 09:48 Completed PT INR [Prothrombin Time INR] Stat Lab 03/02/25 09:48 Completed Trop I [Troponin I] Stat Lab 03/02/25 09:48 Completed Troponin I Q3H Lab 03/02/25 12:59 Completed Troponin I Q3H Lab 03/02/25 15:22 Completed UA [Urinalysis and Microscopic] Stat Lab 03/02/25 13:07 Completed Urine Culture Stat Micro 03/02/25 13:07 Completed CA echo doppler complete Stat Y 03/02/25 14:47 Completed Medical Decision Narrative: Patient is an 84-year-old gentleman with a past medical history of skin cancer, diabetes, high blood pressure, A-fib on blood thinners who presented to the emergency department with shortness of breath and weakness. On arrival, patient was hemodynamically stable, mildly tachycardic with an O2 saturation of 92% on room air. Patient was afebrile, hemodynamically stable. Differential includes but not limited to: Electrolyte abnormalities, dehydration, ACS/TX, pulmonary embolism, pneumonia, viral syndrome, arrhythmia, amongst others. Patient's EKG was reviewed and interpreted by myself and showed A-fib at a rate of [address] or T wave changes concerning for ischemia. Patient's labs were reviewed and interpreted by myself: CBC showed no leukocytosis, hemoglobin was stable. CMP was notable for a potassium of 2.8 otherwise unremarkable. Initial troponin 0.02. Given patient's potassium of 2.8, patient was ordered 500 of normal saline, IV potassium as well as oral potassium for replacement. Patient was placed into ED observation for potassium replacement and serial troponon's at 1030. Repeat troponin was 0.03. Patient's potassium was repleted in the emergency department however patient continued to feel weak. Patient was attempted to ambulate in the emergency department and patient was unable to do secondary to weakness. Given patient's acute change in the last 2 days I felt that this warrants admission for further workup and evaluation. I discussed the case with hospital medicine and patient was ultimately admitted to their service for further evaluation workup.Patient remained in ED obs status for 5 hours. Critical Care Critical Care Time Critical Care Time: No
[2025-03-02 10:06] LABS: Albumin Level 4.2 g/dl (3.5-5.0); Chloride 97 mmol/L (98-107); Sodium 136 mmol/L (136-145)
[2025-03-02 10:08] LABS: Alanine Aminotransferase 17 U/L (12-78); Aspartate Amino Transferase 23 U/L (17-59); Blood Urea Nitrogen 14 mg/dl (9-20); Creatinine Clearance Estimated 90 mL/min (50-200); Creatinine,Serum 0.90 mg/dl (0.66-1.25); Estimated Glomerular Filt Rate 81 ml/min (>60); GFR (African American) 98 ML/MIN (>60)
[2025-03-02 10:09] LABS: Albumin/Globulin Ratio 1.2 (1.1-1.8); Alkaline Phosphatase 79 U/L (38-126); Anion Gap 12.8 mEq/L (5-15); Bilirubin,Total 0.6 mg/dl (0.2-1.3); Calcium 8.7 mg/dl (8.4-10.2); Carbon Dioxide 29 mmol/L (22.0-30.0); Globulin 3.4 g/dL (1.3-3.2); Glucose 170 mg/dl (74-100); Magnesium 2.0 mg/dl (1.6-2.3); Phosphorous 3.3 mg/dl (2.5-4.5); Total Protein,Serum 7.6 g/dl (6.3-8.2)
[2025-03-02 10:13] LABS: Potassium 2.8 mmoL/L (3.5-5.1)
[2025-03-02 10:18] LABS: NT Pro Brain Natriuretic Pep. 473 pg/mL (0-450)
[2025-03-02 10:20] LABS: INR 1.17 (0.9-1.1); Prothrombin Time 12.8 seconds (10.1-12.5)
[2025-03-02 10:21] LABS: Troponin I 0.02 ng/ml (0.00-0.034)
[2025-03-02] MEDS: POTASSIUM CHLORIDE 20MEQ TAB 40 MEQ PO ×2 (10:21→21:17)
[2025-03-02] MEDS: 0.9 % SODIUM CHLORIDE 1000ML 500 ML 999 ML IV (10:21)
--- NOTE | 2025-03-02 10:29 | PC.NURSE ---
radiology taking patient to ct
[2025-03-02] MEDS: IOPAMIDOL-370 (76%);100ML BOTTLE 80 ML IV ×2 (10:36→19:32)
[2025-03-02] MEDS: SODIUM CHLORIDE 0.9% 10ML SYR (RAD ONLY) 10 ML IV ×2 (10:36→19:32)
[2025-03-02] MEDS: 0.9 % SODIUM CHLORIDE 50 ML VIAL IV ×2 (10:36→19:32)
[2025-03-02 13:28] LABS: Troponin I 0.02 ng/ml (0.00-0.034)
--- NOTE | 2025-03-02 14:10 | PC.NURSE ---
Attempted to walk pt with walker. He was able to stand beside the bed but became very weak in his rle and felt like my knees are just gonna give out . He also reported SOA again with exertion. SpO2 94-95% with standing but did have some tachypnea with labored breathing. Dr Lambert notified of this.
[2025-03-02] MEDS: POTASSIUM CHLORIDE 20MEQ TAB 20 MEQ PO (14:11)
[2025-03-02 14:24] LABS: Microscopic, Urine URINE MICROSCOPIC (MICROSCOPIC)
[2025-03-02 14:26] LABS: Bilirubin,Urine Negative (Negative); Color,Urine YELLOW (Yellow); Glucose,Urine (UA) 3+ (Negative); Ketones,Urine TRACE (Negative); Leukocyte Esterase,Urine Negative (Negative); PH,Urine 7.0 (5.0-8.5); Protein,Urine Negative (Negative); Specific Gravity, Urine <= 1.005 (1.005-1.030); Urobilinogen,Urine 0.2 EU/dl (0.2)
--- NOTE | 2025-03-02 14:47 | CA_ITS ---
APPROVED REPORT EXAM: Comprehensive 2D, Doppler, and color-flow Echocardiogram Operating System Programmer: Priyanka Roberts RT(R) Ht: 5 ft 10 in Wt: 245lbs BSA: 2.28 BP: 133/73 mmHg Indications: shortness of air, AFIB, diabetes, hypertension 2D Dimensions LA Volume 33.00 mL LA Volume Index 14.47 mL/m2 (M/F) 16-34 EF AP4 52.20 % GL Strain -17.2 % M-Mode Dimensions RVDd 4.02 cm (0.9-2.6) LVDd 4.28 cm (3.5-5.7) LVDs 3.52 cm (3.5-5.7) IVSd 1.03 cm (0.6-1.1) PWd 1.03 cm (0.6-1.1) EF (Teich) 37.20% FS 17.80% EDV (Teich) 82.20 mL ESV (Teich) 51.60 mL LV Diastology E Decel Time 223 (160-240 msec) E/A Ratio 1.45 Mitral Valve MV A Velocity 69.0 (40-130 cm/s) E/A Ratio 1.45 Tricuspid Valve TR P. Velocity 247.00 cm/s Left Ventricle The left ventricle is normal size. Left ventricular systolic function is normal. The left ventricular ejection fraction is within the normal range. There is increased left ventricular wall thickness. There is normal LV segmental wall motion. The left ventricular diastolic function is normal. LVEF is 60% Right Ventricle The right ventricle is mildly dilated. The right ventricular systolic function is normal. Atria The left atrium is mildly dilated. The right atrium is mildly dilated. There is no color Doppler evidence of interatrial shunt. Aortic Valve The aortic valve is mildly thickened. There is no hemodynamically significant aortic valvular stenosis. No aortic regurgitation is present. Mitral Valve The mitral valve is normal in structure. No evidence of mitral valve stenosis. Trace mitral regurgitation is present. Tricuspid Valve The tricuspid valve leaflets are thin and pliable. Mild tricuspid regurgitation. RVSP is 20-25 mmHg. Pulmonic Valve The pulmonary valve is grossly normal in structure. Trace pulmonic valve regurgitation is present. Great Vessels The aortic root is normal in size. IVC is normal in size and collapses >50% with inspiration. Pericardium There is no pericardial effusion. Other Information Study Quality: Fair Conclusion Normal biventricular systolic function. Mild RV dilation. Mild biatrial dilation. Mild TR. Electronically signed by : Lucero Lisa MD 03/03/2025 10:47:47
--- NOTE | 2025-03-02 14:49 | PC.NURSE ---
I notified HS of the need for a bed to admit the pt to the hospitalist.
--- NOTE | 2025-03-02 15:00 | SW/DCPLANNER ---
I spoke w/ patient regarding plans once medically stable for discharge. Patient resides at home alone, family checks on him often and up till two days ago was able to ambulate independently. Patient voiced that he is not interested in placement at this time. Patient is agreeable to home health services. CM will continue to follow this patient and set up home health services once medically stable for discharge.
--- NOTE | 2025-03-02 15:08 | HMH.PHAINT1 ---
Pharmacy Intervention Comments: MEDICATION RECONCILIATION COMPLETE USING EXTERNAL PHARMACY FILL HISTORY AND RECENT CARDIOLOGY AND ONCOLOGY OFFICE VISIT NOTES.
--- NOTE | 2025-03-02 15:19 | PC.NURSE ---
two attempts to call report to RAND jefferson not available at this time.
--- NOTE | 2025-03-02 15:31 | PC.NURSE ---
echo at bedside
[2025-03-02 15:48] LABS: Bacteria,Urine Trace /lpf; WBC,Urine Occasional #/hpf (0-3)
[2025-03-02 16:14] LABS: Troponin I 0.03 ng/ml (0.00-0.034)
--- NOTE | 2025-03-02 18:05 | CT_ITS ---
PROCEDURE INFORMATION: Exam: CTA Neck With Contrast Exam date and time: 03/02/2025 7:33 PM Age: 84 years old Clinical indication: Weakness; Additional info: Right sided weakness TECHNIQUE: Imaging protocol: Computed tomographic angiography of the neck with contrast. Exam focused on the cervical segments of the vasculature. 3D rendering (Not supervised by radiologist): MIP and/or 3D reconstructed images were created by the technologist. Radiation optimization: All CT scans at this facility use at least one of these dose optimization techniques: automated exposure control; mA and/or kV adjustment per patient size (includes targeted exams where dose is matched to clinical indication); or iterative reconstruction. Contrast material: ISO; Contrast volume: 80 ml; Contrast route: INTRAVENOUS (IV); COMPARISON: CT ANGIO NECK 01/29/2023 11:41 AM FINDINGS: Right common carotid artery: No stenosis. No dissection or occlusion. Right internal carotid artery: Moderate to High-grade stenosis at the origin of the right ICA over 11 mm segment estimated at 60-70%. Right external carotid artery: No occlusion or stenosis of the origin. Left common carotid artery: No stenosis. No dissection or occlusion. Left internal carotid artery: High-grade stenosis estimated at greater than 80% at the origin of the left ICA overall 7 mm segment due to densely calcified plaque formation. Left external carotid artery: No occlusion or stenosis of the origin. Right vertebral artery: No stenosis. No dissection or occlusion. Left vertebral artery: No stenosis. No dissection or occlusion. Soft tissues: Normal. No significant soft tissue swelling. Bones/joints: No acute fracture. IMPRESSION: 1. High-grade stenosis estimated at greater than 80% at the origin of the left ICA overall 7 mm segment due to densely calcified plaque formation. 2. Moderate to High-grade stenosis at the origin of the right ICA over 11 mm segment estimated at 60-70%. REFERENCES: NASCET CRITERIA. The degree of stenosis in the cervical segment of the internal carotid artery is based on NASCET criteria. Normal is no stenosis. Mild is less than 50% stenosis. Moderate is 50-69% stenosis. Severe is 70% to 99% stenosis. Total occlusion is no detectable patent lumen.
--- NOTE | 2025-03-02 18:05 | CT_ITS ---
PROCEDURE INFORMATION: Exam: CTA Head With Contrast, Arteriography Exam date and time: 03/02/2025 7:33 PM Age: 84 years old Clinical indication: Weakness; Additional info: Right sided weakness TECHNIQUE: Imaging protocol: Computed tomographic angiography of the head with contrast. Exam focused on the arteries. 3D rendering (Not supervised by radiologist): MIP and/or 3D reconstructed images were created by the technologist. Radiation optimization: All CT scans at this facility use at least one of these dose optimization techniques: automated exposure control; mA and/or kV adjustment per patient size (includes targeted exams where dose is matched to clinical indication); or iterative reconstruction. Contrast material: ISO; Contrast volume: 80 ml; Contrast route: INTRAVENOUS (IV); COMPARISON: CT ANGIO HEAD 01/29/2023 11:41 AM FINDINGS: ANTERIOR CIRCULATION: Right internal carotid artery: Mild diffuse stenosis estimated at 30% within the cavernous segment of the right ICA. Right middle cerebral artery: No occlusion or significant stenosis. No aneurysm. Right anterior cerebral artery: No occlusion or significant stenosis. No aneurysm. Left internal carotid artery: Mild diffuse stenosis estimated 30% within the cavernous segment of the left ICA. Left middle cerebral artery: No occlusion or significant stenosis. No aneurysm. Left anterior cerebral artery: No occlusion or significant stenosis. No aneurysm. POSTERIOR CIRCULATION: Right vertebral artery: No occlusion or significant stenosis. No aneurysm. Left vertebral artery: No occlusion or significant stenosis. No aneurysm. Basilar artery: No occlusion or significant stenosis. No aneurysm. Right posterior cerebral artery: No occlusion or significant stenosis. No aneurysm. Left posterior cerebral artery: No occlusion or significant stenosis. No aneurysm. Brain: No definite mass, mass effect, or midline shift. Cerebral ventricles: No ventriculomegaly. Bones/joints: Unremarkable. No acute fracture. Soft tissues: Unremarkable. IMPRESSION: 1. Mild diffuse stenosis estimated at 30% within the cavernous segment of the right ICA. 2. Mild diffuse stenosis estimated 30% within the cavernous segment of the left ICA. 3. No high-grade stenosis or occlusion.
--- NOTE | 2025-03-02 18:05 | CT_ITS ---
PROCEDURE INFORMATION: Exam: CT Head Without Contrast Exam date and time: 03/02/2025 7:30 PM Age: 84 years old Clinical indication: Weakness, extremity; Right; Additional info: Right sided weakness TECHNIQUE: Imaging protocol: Computed tomography of the head without contrast. Radiation optimization: All CT scans at this facility use at least one of these dose optimization techniques: automated exposure control; mA and/or kV adjustment per patient size (includes targeted exams where dose is matched to clinical indication); or iterative reconstruction. COMPARISON: MR HEAD/BRAIN WO/W CON 04/26/2023 1:53 PM FINDINGS: Brain: Normal. No hemorrhage. Unremarkable white matter. No mass effect. Cerebral ventricles: No ventriculomegaly. Paranasal sinuses: Visualized sinuses are unremarkable. No fluid levels. Mastoid air cells: Visualized mastoid air cells are well aerated. Bones: Unremarkable. No acute fracture. Soft tissues: Unremarkable. IMPRESSION: No acute intracranial abnormality.
--- NOTE | 2025-03-02 18:31 | PC.NURSE ---
OFF floor for CT.
--- NOTE | 2025-03-02 18:34 | EXP.HP ---
History of Present Illness *Admission Date: 03/02/25 *Reason for visit:: Shortness of breath *History of present illness: Mack Bower is a 84-year-old male with a medical history significant for type 2 diabetes, rheumatoid arthritis, A-fib on Eliquis, hypertension, CAD, HFpEF, skin cancer s/p resection who presents with 2 days of lower extremity weakness and shortness of breath. Upon further inquiry, patient states he needs predominantly his right leg that is weak. He states he was feeling well up until 2 days ago when he started feeling right leg weakness, as well as right upper extremity weakness. No falls, fever/chills, chest pain. Only recent change was methotrexate for rheumatoid arthritis was switched to sulfasalazine due to concern of facial skin rash from methotrexate about 1 month ago. No history of CVA, heart attack. Non-smoker. Brother noticed patient was unable to ambulate at home today and brought him to the ED. Workup in the ED significant for potassium 2.8, but otherwise CBC and CMP unremarkable. BNP 473. UA, mini respiratory panel normal. Patient was unable to ambulate independently in the ED. Case discussed with ED provider and I decided to admit patient for further evaluation and management of weakness. Upon my evaluation, patient had focal right-sided weakness. CT head, CTA head/neck pending at this time. [facility] Disclaimer: The information contained in this section may have been updated after the patient was seen, as this information can be updated by other users. Medical History Renal cyst Hyperlipidemia Skin cancer Rheumatoid arthritis Diabetes mellitus, type 2 Diplopia Hypertension Night sweats Back pain Aortic valve sclerosis Diastolic dysfunction Abnormal electrocardiogram [ECG] [EKG] Atrial fibrillation Paroxysmal atrial fibrillation Melanoma Diplopia Surgical History History of right cataract surgery History of left cataract surgery H/O hernia repair 10-20 years ago Family History Other Brain cancer Family history of asthma Family history of diabetes mellitus type II Liver cancer Lung cancer Skin cancer Social History (Updated 03/02/25 @ 16:23 by Lakesha Brown RN) Smoking Status: Never smoker alcohol intake: never current occupational status: retired Travel in the last 8 weeks?: None caffeine: Yes Have you lived/traveled outside [place] in past 30 days?: No Contact w/someone who lives/traveled outside [place] past 30 days?: No Exposure to someone with infectious disease in past 14 days?: No Do you have a fever (greater than 100.4 F or 38 C)?: No Have you tested positive for COVID-19?: No Exposed to someone with COVID-19 in past 14 days?: No Do you have a sore throat?: No Do you have a cough?: No Do you have any weakness?: No Are you experiencing any nausea/vomitting?: No Do you have any diarrhea?: No Are you experiencing any unusual bleeding?: No Do you have any muscle aches/pain?: No Do you have any abdominal pain?: No Are you experiencing loss of taste or smell?: No Other Medical History Have you received the Flu Vaccine for this season: Yes Have you received the Pneumonia Vaccine: Yes Meds Home Medications and Allergies Home Medications ?Medication ?Instructions ?Recorded ?Confirmed ?Type naproxen sodium 220 mg tablet 220 mg PO BIDP PRN Mild Pain 04/11/24 03/02/25 History (Aleve) (Scale Score 1-4) prednisone 1 mg tablet 2 mg PO DAILY 04/11/24 03/02/25 History doxazosin 4 mg tablet (Cardura) 4 mg PO DAILY #30 tabs 10/09/24 03/02/25 Rx verapamil 240 mg 24 hr 240 mg PO BID #60 caps 10/09/24 03/02/25 Rx capsule,extended release apixaban 5 mg tablet 5 mg PO BID 30 days #60 tabs 12/27/24 03/02/25 Rx sulfasalazine 500 mg 1 g PO BID 01/30/25 03/02/25 History tablet,delayed release albuterol sulfate 90 mcg/actuation 2 inh inhalation DAILY 03/02/25 03/02/25 History aerosol inhaler bumetanide 1 mg tablet 1 mg PO DAILY 03/02/25 03/02/25 History carvedilol 6.25 mg tablet (Coreg) 6.25 mg PO BIDWMEAL 03/02/25 03/02/25 History empagliflozin 25 mg-linagliptin 5 1 tab PO DAILY 03/02/25 03/02/25 History mg tablet (Glyxambi) polyethylene glycol 3350 17 17 g PO DAILY 03/02/25 03/02/25 History gram/dose oral powder (Miralax) potassium chloride 20 mEq 20 meq PO DAILY 03/02/25 03/02/25 History tablet,extended release(part/cryst) pravastatin 40 mg tablet 40 mg PO DAILY 03/02/25 03/02/25 History valsartan 320 1 tab PO DAILY 03/02/25 03/02/25 History mg-hydrochlorothiazide 25 mg tablet New Prescriptions to Start Prescriptions: Allergies Allergy/AdvReac Type Severity Reaction Status Date / Time amlodipine Allergy Mild edema Verified 02/27/25 10:57 Exam Data for Last 24 hours Vital signs and Labs for Last 24 Hours: Temp Pulse Resp BP Pulse Ox O2 Del Method 98.0 F 60 20 139/65 92 L Room Air 03/02/25 15:15 03/02/25 16:01 03/02/25 15:15 03/02/25 16:01 03/02/25 16:01 03/02/25 18:24 Laboratory Results - last 24 hr 03/02/25 09:43: SARS-CoV-2 (PCR) Not detected, Influenza Type A (PCR) Not detected, Influenza Type B (PCR) Not detected, RSV (PCR) Not detected, Rhinovirus (PCR) Not detected 03/02/25 09:48: WBC 10.7, RBC 4.28 L, Hgb 13.4 L, Hct 38.7 L, MCV 90.4, MCH 31.3 H, MCHC 34.6, RDW 14.4, Plt Count 246, MPV 10.3, Neut % (Auto) 75.8, Lymph % (Auto) 11.3, Day % (Auto) 10.0 H, Eos % (Auto) 1.8, Baso % (Auto) 0.6, Neut # (Auto) 8.1 H, Lymph # (Auto) 1.2, Day # (Auto) 1.1 H, Eos # (Auto) 0.2, Baso # (Auto) 0.1, PT 12.8 H, INR 1.17 H, Sodium 136, Potassium 2.8 L*, Chloride 97 L, Carbon Dioxide 29, Anion Gap 12.8, BUN 14, Creatinine 0.90, Estimated Creat Clear 90, Estimated GFR 81, Est GFR ( Amer) 98, Glucose 170 H, Calcium 8.7, Phosphorus 3.3, Magnesium 2.0, Total Bilirubin 0.6, AST 23, ALT 17, Alkaline Phosphatase 79, Troponin I 0.02, NT-Pro-B Natriuret Pep 473 H, Total Protein 7.6, Albumin 4.2, Globulin 3.4 H, Albumin/Globulin Ratio 1.2 03/02/25 12:59: Troponin I 0.02 03/02/25 13:07: Urine Color Yellow, Urine Appearance Clear, Urine pH 7.0, Ur Specific [place] <= 1.005, Urine Protein Negative, Urine Glucose (UA) 3+, Urine Ketones Trace, Urine Blood Negative, Urine Nitrate Negative, Urine Bilirubin Negative, Urine Urobilinogen 0.2, Ur Leukocyte Esterase Negative, Urine RBC None, Urine WBC Occasional, Ur Squamous Epith Cells None, Urine Bacteria Trace 03/02/25 15:22: Troponin I 0.03 I & O for Last 24 hours: Intake & Output 02/27/25 02/28/25 03/01/25 03/02/25 23:59 23:59 23:59 23:59 Weight 111.13 kg Constitutional Constitutional: no acute distress and obese *Routine HEENT Exam Head: Present normocephalic Eye: Present EOMI and PERRL ENT: Present mucous membranes moist *Routine Neck Exam Neck: Present supple; Absent lymphadenopathy *Routine Respiratory Exam Respiratory: Present CTA bilaterally *Routine Cardiovascular Exam Cardiovascular: Present RRR *Routine Abdominal Exam Abdominal: Present soft and normoactive bowel sounds; Absent tenderness *Routine Rectal Exam Rectal:: deferred *Routine Genitalia Exam Genitalia:: deferred *Routine Extremities Exam Extremities: Absent cyanosis, clubbing or edema *Routine Skin Exam Skin: Present warm; Absent rash *Routine Neurological Exam Neurological: Present alert and oriented X3 Comments: Motor strength 4/5 right upper and lower extremity. Assessment and Plan *Assessment and plan (1) Hypokalemia: Status: Acute Category: Medical Code(s): E87.6 - Hypokalemia Plan Mack Bower is a 84-year-old male with a medical history significant for type 2 diabetes, rheumatoid arthritis, A-fib on Eliquis, hypertension, CAD, HFpEF, skin cancer s/p resection who presents with 2 days of lower extremity weakness and shortness of breath. Upon further inquiry, patient states he needs predominantly his right leg that is weak. He states he was feeling well up until 2 days ago when he started feeling right leg weakness, as well as right upper extremity weakness. No falls, fever/chills, chest pain. Only recent change was methotrexate for rheumatoid arthritis was switched to sulfasalazine due to concern of facial skin rash from methotrexate about 1 month ago. No history of CVA, heart attack. Non-smoker. Brother noticed patient was unable to ambulate at home today and brought him to the ED. Workup in the ED significant for potassium 2.8, but otherwise CBC and CMP unremarkable. BNP 473. UA, mini respiratory panel normal. Patient was unable to ambulate independently in the ED. Case discussed with ED provider and I decided to admit patient for further evaluation and management of weakness. Upon my evaluation, patient had focal right-sided weakness. CT head, CTA head/neck pending at this time. #Right upper and lower extremity weakness #Suspected CVA ? Presented with 2-day onset of right-sided weakness. No history of CVA. ? CT head, CTA head/neck pending at this time. ? Presentation is highly concerning for CVA. Has underlying A-fib, history of skin cancer. ? Started aspirin 81 mg, Plavix 75 mg, atorvastatin 40 mg. ? Will need MRI on Wednesday. ? Follow-up ECHO. ? Bedside swallow test. If passes, can start diet. ? PT/OT consulted, pending further recommendations. ? Outside window for permissive hypertension and thrombolytic, symptoms started 2 days ago. #Hypokalemia ? Initial potassium 2.8, repleted with IV. Follow-up repeat BMP in the morning. #Type 2 diabetes ? Hemoglobin A1c 6.3% in September 2024. ? LDSSI, ACHS glucose checks. ? Continue home empagliflozin, linagliptin. #A-fib ? Currently rate controlled. ? Continue home verapamil to 40 mg twice daily, Coreg, Eliquis 5 mg twice daily. #CAD ? Continue home aspirin, statin. #HFpEF ? Currently euvolemic. Continue home Bumex. #Hypertension ? Hold home BP meds, BP stable at this time. #Rheumatoid arthritis ? Continue home sulfasalazine 500 mg twice daily, prednisone 2 mg. #BPH ? Continue home doxazosin. Full code DVT prophylaxis: Home Eliquis
[2025-03-02 19:08] LABS: Adenovirus F 40/41, stool Not Detected (NotDetected); Cyclospora Cayetanesis Not Detected (NotDetected); Plesimonas Shigalloides, PCR Not Detected (NotDetected); Salmonella, PCR Not Detected (NotDetected); Shiga-like toxin E coli Not Detected (NotDetected); Shigella Enterovasive E coli Not Detected (NotDetected); Vibrio, PCR Not Detected (NotDetected)
[2025-03-02 20:09] LABS: POC Glucose,Bedside 132 (70-110)
[2025-03-02 20:25] LABS: Chloride 100 mmol/L (98-107); Potassium 3.1 mmoL/L (3.5-5.1); Sodium 136 mmol/L (136-145)
[2025-03-02 20:28] LABS: Anion Gap 14.1 mEq/L (5-15); Blood Urea Nitrogen 14 mg/dl (9-20); Calcium 8.6 mg/dl (8.4-10.2); Carbon Dioxide 25 mmol/L (22.0-30.0); Creatinine Clearance Estimated 90 mL/min (50-200); Creatinine,Serum 0.80 mg/dl (0.66-1.25); Estimated Glomerular Filt Rate 93 ml/min (>60); GFR (African American) 112 ML/MIN (>60); Glucose 137 mg/dl (74-100)
[2025-03-02] MEDS: APIXABAN 5MG TABLET 5 MG PO (20:44)
[2025-03-02] MEDS: ASPIRIN 325MG TABLET 325 MG PO (20:44)
[2025-03-02] MEDS: VERAPAMIL 240 MG PO (20:45)
[2025-03-02] MEDS: EXT REL PELLETS PO (20:45)
[2025-03-02] MEDS: ACETAMINOPHEN 325MG TAB 650 MG PO (20:47)
--- NOTE | 2025-03-02 21:18 | PC.NURSE ---
patient placed on tele r/t k 3.1 and replacing
[2025-03-02 22:16] LABS: Clostridium Difficile A/B, PCR Detected (NotDetected); Yersinia Entercolitica, PCR Detected (NotDetected)
[2025-03-03] VITALS: BP 111/70; PULSE 76; RESP 19; TEMP 36.6; O2SAT 91
[2025-03-03] MEDS: POTASSIUM CHLORIDE 20MEQ TAB 40 MEQ PO ×2 (01:04→06:01)
[2025-03-03 04:00] VITALS: BP 127/67; PULSE 66; RESP 19; TEMP 36.6; O2SAT 91; BMI 34.3
--- NOTE | 2025-03-03 05:47 | PC.NURSE ---
This RN took over care for patient at 0100. Patient has rested well with no complaints. Replacing electrolytes per protocol. Room air. Bed alarm on. Call light in reach.
[2025-03-03] MEDS: ACETAMINOPHEN 325MG TAB 650 MG PO ×2 (06:07→11:53)
[2025-03-03 06:11] LABS: POC Glucose,Bedside 129 (70-110)
[2025-03-03 07:45] LABS: Hematocrit 36.8 % (42.0-52.0); Hemoglobin 12.4 g/dL (14.1-18.0); Immature Granulocytes % 0.6 %; Mean Corpuscular HGB Conc 33.7 g/dL (31.8-35.4); Mean Corpuscular Hemoglobin 31.3 pg (27.0-31.2); Mean Corpuscular Volume 92.9 fl (80-94); Nucleated Red Blood Cells % 0 %; Platelet Count 227 K/mm3 (142-424); Red Blood Count 3.96 M/mm3 (4.60-6.20); Red Cell Distribution Width-SD 51.0 fL; White Blood Count 10.5 K/mm3 (4.8-10.8)
[2025-03-03 07:51] LABS: Albumin Level 3.8 g/dl (3.5-5.0); Chloride 102 mmol/L (98-107); Potassium 3.8 mmoL/L (3.5-5.1); Sodium 136 mmol/L (136-145)
[2025-03-03 07:53] LABS: Alanine Aminotransferase 14 U/L (12-78); Aspartate Amino Transferase 21 U/L (17-59); Blood Urea Nitrogen 16 mg/dl (9-20); Creatinine Clearance Estimated 88 mL/min (50-200); Creatinine,Serum 0.90 mg/dl (0.66-1.25); Estimated Glomerular Filt Rate 81 ml/min (>60); GFR (African American) 98 ML/MIN (>60)
[2025-03-03 07:54] LABS: Albumin/Globulin Ratio 1.3 (1.1-1.8); Alkaline Phosphatase 70 U/L (38-126); Anion Gap 13.8 mEq/L (5-15); Bilirubin,Total 0.6 mg/dl (0.2-1.3); Calcium 8.2 mg/dl (8.4-10.2); Carbon Dioxide 24 mmol/L (22.0-30.0); Cholesterol 140 mg/dl (140-200); Globulin 3.0 g/dL (1.3-3.2); Glucose 129 mg/dl (74-100); HDL Cholesterol 38 mg/dl (40-60); Magnesium 2.2 mg/dl (1.6-2.3); Total Protein,Serum 6.8 g/dl (6.3-8.2); Triglycerides 102 mg/dl (30-150)
[2025-03-03 08:00] VITALS: BP 124/65; PULSE 70; RESP 18; TEMP 36.9; O2SAT 92
[2025-03-03] MEDS: CLOPIDOGREL 75MG TAB 75 MG PO (09:17)
[2025-03-03] MEDS: APIXABAN 5MG TABLET 5 MG PO (09:17)
[2025-03-03] MEDS: ASPIRIN EC 81MG TABLET 81 MG PO (09:17)
[2025-03-03] MEDS: BUMETANIDE 1 MG TABLET PO (09:17)
[2025-03-03] MEDS: VANCOMYCIN HCL 50MG/ML 150ML KIT 125 MG PO (09:24)
[2025-03-03 09:39] LABS: Hemoglobin A1C 6.5 % (4.0-6.0)
[2025-03-03 11:03] LABS: POC Glucose,Bedside 119 (70-110)
--- NOTE | 2025-03-03 11:29 | P.DS_ITS ---
General Admission date:: 03/02/25 HPI HPI HPI: Mack Bower is a 84-year-old male with a medical history significant for type 2 diabetes, rheumatoid arthritis, A-fib on Eliquis, hypertension, CAD, HFpEF, skin cancer s/p resection who presents with 2 days of lower extremity weakness and shortness of breath. Upon further inquiry, patient states he needs predominantly his right leg that is weak. He states he was feeling well up unt il 2 days ago when he started feeling right leg weakness, as well as right upper extremity weakness. No falls, fever/chills, chest pain. Only recent change was methotrexate for rheumatoid arthritis was switched to sulfasalazine due to concern of facial skin rash from methotrexate about 1 month ago. No history of CVA, heart attack. Non-smoker. Brother noticed patient was unable to ambulate at home today and brought him to the ED. Workup in the ED significant for potassium 2.8, but otherwise CBC and CMP unremarkable. BNP 473. UA, mini respiratory panel normal. Patient was unable to ambulate independently in the ED. Case discussed with ED provider and I decided to admit patient for further evaluation and management of weakness. Upon my evaluation, patient had focal right-sided weakness. CT head, CTA head/neck pending at this time. Hospital Course Hospital Course Hospital Course: Mack Bower is a pleasant 84-year-old male with a medical history significant for type 2 diabetes, rheumatoid arthritis, A-fib on Eliquis, hypertension, CAD, HFpEF, skin cancer s/p resection who presents with 2 days of lower extremity weakness and shortness of breath. Upon further inquiry, patient states he needs predominantly his right leg that is weak. He states he was feeling well up un til 2 days ago when he started feeling right leg weakness, as well as right upper extremity weakness. No falls, fever/chills, chest pain. Only recent change was methotrexate for rheumatoid arthritis was switched to sulfasalazine due to concern of facial skin rash from methotrexate about 1 month ago. No history of CVA, heart attack. Non-smoker. Brother noticed patient was unable to ambulate at home today and brought him to the ED. Workup in the ED significant for potassium 2.8, but otherwise CBC and CMP unremarkable. BNP 473. UA, mini respiratory panel normal. Patient was unable to ambulate independently in the ED. Case discussed with ED provider and I decided to admit patient for further evaluation and management of weakness. Upon my evaluation, patient had focal right-sided weakness. #Right upper and lower extremity weakness #Suspected left-sided CVA with right-sided deficits ? Presented with 2-day onset of right upper and lower extremity weakness. No history of CVA. ? Patient unable to lift right leg against gravity. Able to move it horizontally. Slight right upper extremity weakness compared to left. NIHSS 3. ? CTA head/neck revealed 80% stenosis of ICA, 60 to 70% stenosis in the right ICA. CT head without acute findings. Unable to do MRI in our facility over the weekend unfortunately. ? Started aspirin 81 mg, Plavix 75 mg, atorvastatin 40 mg. ? Outside window for permissive hypertension and thrombolytic, symptoms started 3 days ago. ? Consulted with [facility] stroke team, graciously accepted patient for further evaluation management. Patient will be transported in stable medical condition. #C. difficile diarrhea ? Stool PCR positive for C. difficile, Yersinia entericolitica. ? Started oral vancomycin 125 mg every 6 hours, received 1 dose here. #Type 2 diabetes ? Hemoglobin A1c 6.5% on admission. ? LDSSI, ACHS glucose checks. ? Continue home empagliflozin, linagliptin. #A-fib ? Currently rate controlled. ? Continue home verapamil to 40 mg twice daily, Coreg, Eliquis 5 mg twice daily. #CAD ? Continue home aspirin, statin. #HFpEF ? Currently euvolemic. Continue home Bumex. #Hypertension ? Hold home BP meds, BP stable at this time. #Rheumatoid arthritis #Facial rash ? Continue home sulfasalazine 500 mg twice daily, prednisone 2 mg. ? Methotrexate was recently discontinued due to side effects, include facial rash. #BPH ? Continue home doxazosin. Total time spent on discharge: 40 minutes on chart review, counseling, documentation, and direct care with patient. Exam Data for Last 24 hours Vital signs and Labs for Last 24 Hours: Temp Pulse Resp BP Pulse Ox O2 Del Method 98.4 F 70 18 124/65 92 L Room Air 03/03/25 08:00 03/03/25 08:00 03/03/25 08:00 03/03/25 08:00 03/03/25 08:00 03/03/25 08:00 Laboratory Results - last 24 hr 03/02/25 09:43: SARS-CoV-2 (PCR) Not detected, Influenza Type A (PCR) Not detected, Influenza Type B (PCR) Not detected, RSV (PCR) Not detected, Rhinovirus (PCR) Not detected 03/02/25 12:59: Troponin I 0.02 03/02/25 13:07: Urine Color Yellow, Urine Appearance Clear, Urine pH 7.0, Ur Specific [place] <= 1.005, Urine Protein Negative, Urine Glucose (UA) 3+, Urine Ketones Trace, Urine Blood Negative, Urine Nitrate Negative, Urine Bilirubin Negative, Urine Urobilinogen 0.2, Ur Leukocyte Esterase Negative, Urine RBC None, Urine WBC Occasional, Ur Squamous Epith Cells None, Urine Bacteria Trace 03/02/25 15:22: Troponin I 0.03 03/02/25 19:05: Stl C. cayetanensis PCR Not detected, Stool Rotavirus (PCR) Not detected, Stl Adenov F 40/41 PCR Not detected, Stool Astrovirus (PCR) Not detected, Stool Campylobacter PCR Not detected, Stl C.difficile Tox PCR Detected A, Stool Cryptosporidium PCR Not detected, Stl E.coli Shiga Tox PCR Not detected, Stool E coli O157 PCR Not detected, Stl Enterotoxigenic E PCR Not detected, Stool EPEC (PCR) Not detected, Stool EAEC (PCR) Not detected, Stl E. histolytica PCR Not detected, Stool Giardia Lamblia PCR Not detected, Stool Salmonella PCR Not detected, Stool Sapovirus (PCR) Not detected, Stl P. shigelloides PCR Not detected, Stl Shigella/EIEC PCR Not detected, St Y.enterocolitica PCR Detected A, Stool Vibrio (PCR) Not detected, Stl Vibrio cholerae PCR Not detected, Stl Norovirus GI/GII PCR Not detected 03/02/25 20:02: POC Glucose 132 H 03/02/25 20:03: Sodium 136, Potassium 3.1 L, Chloride 100, Carbon Dioxide 25, Anion Gap 14.1, BUN 14, Creatinine 0.80, Estimated Creat Clear 90, Estimated GFR 93, Est GFR ( Amer) 112, Glucose 137 H, Calcium 8.6 03/03/25 06:00: POC Glucose 129 H 03/03/25 06:41: WBC 10.5, RBC 3.96 L, Hgb 12.4 L, Hct 36.8 L, MCV 92.9, MCH 31.3 H, MCHC 33.7, RDW 15.0, Plt Count 227, MPV 10.4, Neut % (Auto) 72.6, Lymph % (Auto) 11.0, [place] % (Auto) 12.4 H, Eos % (Auto) 2.8, Baso % (Auto) 0.6, Neut # (Auto) 7.6, Lymph # (Auto) 1.2, [place] # (Auto) 1.3 H, Eos # (Auto) 0.3, Baso # (Auto) 0.1, Sodium 136, Potassium 3.8 D, Chloride 102, Carbon Dioxide 24, Anion Gap 13.8, BUN 16, Creatinine 0.90, Estimated Creat Clear 88, Estimated GFR 81, Est GFR ( Amer) 98, Glucose 129 H, Calcium 8.2 L, Magnesium 2.2, Total Bilirubin 0.6, AST 21, ALT 14, Alkaline Phosphatase 70, Total Protein 6.8, Albumin 3.8, Globulin 3.0, Albumin/Globulin Ratio 1.3, Triglycerides 102, Cholesterol 140, LDL Cholesterol Direct 67.78 L, VLDL Cholesterol 20, HDL Cholesterol 38 L, Cholesterol/HDL Ratio 3.7 H 03/03/25 06:48: Hemoglobin A1c 6.5 H 03/03/25 10:54: POC Glucose 119 H I & O for Last 24 hours: Intake & Output 02/28/25 03/01/25 03/02/25 03/03/25 23:59 23:59 23:59 23:59 Intake Total 1000 / 1190 590 / 590 Output Total 650 / 650 600 / 600 Balance 350 / 540 -10 / -10 Weight 111.13 kg 108.908 kg Constitutional Constitutional: no acute distress and obese *Routine HEENT Exam Head: Present normocephalic Eye: Present EOMI and PERRL ENT: Present mucous membranes moist *Routine Neck Exam Neck: Present supple; Absent lymphadenopathy *Routine Respiratory Exam Respiratory: Present CTA bilaterally *Routine Cardiovascular Exam Cardiovascular: Present RRR *Routine Abdominal Exam Abdominal: Present soft and normoactive bowel sounds; Absent tenderness *Routine Extremities Exam Extremities: Absent cyanosis, clubbing or edema Comments: Significant right lower extremity weakness, unable to move against gravity. Able to move it horizontally on bed. *Routine Skin Exam Skin: Present warm; Absent rash *Routine Neurological Exam Neurological: Present alert and oriented X3 Results Data Completed and Pending Labs on day of discharge: Labs from last 24 hours 03/03/25 03/03/25 03/03/25 10:54 06:48 06:41 WBC 10.5 RBC 3.96 L Hgb 12.4 L Hct 36.8 L MCV 92.9 MCH 31.3 H MCHC 33.7 RDW 15.0 Plt Count 227 MPV 10.4 Neut % (Auto) 72.6 Lymph % (Auto) 11.0 [place] % (Auto) 12.4 H Eos % (Auto) 2.8 Baso % (Auto) 0.6 Neut # (Auto) 7.6 Lymph # (Auto) 1.2 [place] # (Auto) 1.3 H Eos # (Auto) 0.3 Baso # (Auto) 0.1 Sodium 136 Potassium 3.8 D Chloride 102 Carbon Dioxide 24 Anion Gap 13.8 BUN 16 Creatinine 0.90 Estimated Creat Clear 88 Estimated GFR 81 Est GFR ( Amer) 98 Glucose 129 H POC Glucose 119 H Hemoglobin A1c 6.5 H Calcium 8.2 L Magnesium 2.2 Total Bilirubin 0.6 AST 21 ALT 14 Alkaline Phosphatase 70 Troponin I Total Protein 6.8 Albumin 3.8 Globulin 3.0 Albumin/Globulin Ratio 1.3 Triglycerides 102 Cholesterol 140 LDL Cholesterol Direct 67.78 L VLDL Cholesterol 20 HDL Cholesterol 38 L Cholesterol/HDL Ratio 3.7 H Urine Color Urine Appearance Urine pH Ur Specific [place] Urine Protein Urine Glucose (UA) Urine Ketones Urine Blood Urine Nitrate Urine Bilirubin Urine Urobilinogen Ur Leukocyte Esterase Urine RBC Urine WBC Ur Squamous Epith Cells Urine Bacteria Stl C. cayetanensis PCR Stool Rotavirus (PCR) Stl Adenov F 40/41 PCR Stool Astrovirus (PCR) Stool Campylobacter PCR Stl C.difficile Tox PCR Stool Cryptosporidium PCR Stl E.coli Shiga Tox PCR Stool E coli O157 PCR Stl Enterotoxigenic E PCR Stool EPEC (PCR) Stool EAEC (PCR) Stl E. histolytica PCR Stool Giardia Lamblia PCR Stool Salmonella PCR Stool Sapovirus (PCR) Stl P. shigelloides PCR Stl Shigella/EIEC PCR St Y.enterocolitica PCR Stool Vibrio (PCR) Stl Vibrio cholerae PCR Stl Norovirus GI/GII PCR SARS-CoV-2 (PCR) Influenza Type A (PCR) Influenza Type B (PCR) RSV (PCR) Rhinovirus (PCR) 03/03/25 03/02/25 03/02/25 06:00 20:03 20:02 WBC RBC Hgb Hct MCV MCH MCHC RDW Plt Count MPV Neut % (Auto) Lymph % (Auto) [place] % (Auto) Eos % (Auto) Baso % (Auto) Neut # (Auto) Lymph # (Auto) [place] # (Auto) Eos # (Auto) Baso # (Auto) Sodium 136 Potassium 3.1 L Chloride 100 Carbon Dioxide 25 Anion Gap 14.1 BUN 14 Creatinine 0.80 Estimated Creat Clear 90 Estimated GFR 93 Est GFR ( Amer) 112 Glucose 137 H POC Glucose 129 H 132 H Hemoglobin A1c Calcium 8.6 Magnesium Total Bilirubin AST ALT Alkaline Phosphatase Troponin I Total Protein Albumin Globulin Albumin/Globulin Ratio Triglycerides Cholesterol LDL Cholesterol Direct VLDL Cholesterol HDL Cholesterol Cholesterol/HDL Ratio Urine Color Urine Appearance Urine pH Ur Specific [place] Urine Protein Urine Glucose (UA) Urine Ketones Urine Blood Urine Nitrate Urine Bilirubin Urine Urobilinogen Ur Leukocyte Esterase Urine RBC Urine WBC Ur Squamous Epith Cells Urine Bacteria Stl C. cayetanensis PCR Stool Rotavirus (PCR) Stl Adenov F 40/41 PCR Stool Astrovirus (PCR) Stool Campylobacter PCR Stl C.difficile Tox PCR Stool Cryptosporidium PCR Stl E.coli Shiga Tox PCR Stool E coli O157 PCR Stl Enterotoxigenic E PCR Stool EPEC (PCR) Stool EAEC (PCR) Stl E. histolytica PCR Stool Giardia Lamblia PCR Stool Salmonella PCR Stool Sapovirus (PCR) Stl P. shigelloides PCR Stl Shigella/EIEC PCR St Y.enterocolitica PCR Stool Vibrio (PCR) Stl Vibrio cholerae PCR Stl Norovirus GI/GII PCR SARS-CoV-2 (PCR) Influenza Type A (PCR) Influenza Type B (PCR) RSV (PCR) Rhinovirus (PCR) 03/02/25 03/02/25 03/02/25 19:05 15:22 13:07 WBC RBC Hgb Hct MCV MCH MCHC RDW Plt Count MPV Neut % (Auto) Lymph % (Auto) [place] % (Auto) Eos % (Auto) Baso % (Auto) Neut # (Auto) Lymph # (Auto) [place] # (Auto) Eos # (Auto) Baso # (Auto) Sodium Potassium Chloride Carbon Dioxide Anion Gap BUN Creatinine Estimated Creat Clear Estimated GFR Est GFR ( Amer) Glucose POC Glucose Hemoglobin A1c Calcium Magnesium Total Bilirubin AST ALT Alkaline Phosphatase Troponin I 0.03 Total Protein Albumin Globulin Albumin/Globulin Ratio Triglycerides Cholesterol LDL Cholesterol Direct VLDL Cholesterol HDL Cholesterol Cholesterol/HDL Ratio Urine Color Yellow Urine Appearance Clear Urine pH 7.0 Ur Specific [place] <= 1.005 Urine Protein Negative Urine Glucose (UA) 3+ Urine Ketones Trace Urine Blood Negative Urine Nitrate Negative Urine Bilirubin Negative Urine Urobilinogen 0.2 Ur Leukocyte Esterase Negative Urine RBC None Urine WBC Occasional Ur Squamous Epith Cells None Urine Bacteria Trace Stl C. cayetanensis PCR Not detected Stool Rotavirus (PCR) Not detected Stl Adenov F 40/41 PCR Not detected Stool Astrovirus (PCR) Not detected Stool Campylobacter PCR Not detected Stl C.difficile Tox PCR Detected A Stool Cryptosporidium PCR Not detected Stl E.coli Shiga Tox PCR Not detected Stool E coli O157 PCR Not detected Stl Enterotoxigenic E PCR Not detected Stool EPEC (PCR) Not detected Stool EAEC (PCR) Not detected Stl E. histolytica PCR Not detected Stool Giardia Lamblia PCR Not detected Stool Salmonella PCR Not detected Stool Sapovirus (PCR) Not detected Stl P. shigelloides PCR Not detected Stl Shigella/EIEC PCR Not detected St Y.enterocolitica PCR Detected A Stool Vibrio (PCR) Not detected Stl Vibrio cholerae PCR Not detected Stl Norovirus GI/GII PCR Not detected SARS-CoV-2 (PCR) Influenza Type A (PCR) Influenza Type B (PCR) RSV (PCR) Rhinovirus (PCR) 03/02/25 03/02/25 12:59 09:43 WBC RBC Hgb Hct MCV MCH MCHC RDW Plt Count MPV Neut % (Auto) Lymph % (Auto) [place] % (Auto) Eos % (Auto) Baso % (Auto) Neut # (Auto) Lymph # (Auto) [place] # (Auto) Eos # (Auto) Baso # (Auto) Sodium Potassium Chloride Carbon Dioxide Anion Gap BUN Creatinine Estimated Creat Clear Estimated GFR Est GFR ( Amer) Glucose POC Glucose Hemoglobin A1c Calcium Magnesium Total Bilirubin AST ALT Alkaline Phosphatase Troponin I 0.02 Total Protein Albumin Globulin Albumin/Globulin Ratio Triglycerides Cholesterol LDL Cholesterol Direct VLDL Cholesterol HDL Cholesterol Cholesterol/HDL Ratio Urine Color Urine Appearance Urine pH Ur Specific [place] Urine Protein Urine Glucose (UA) Urine Ketones Urine Blood Urine Nitrate Urine Bilirubin Urine Urobilinogen Ur Leukocyte Esterase Urine RBC Urine WBC Ur Squamous Epith Cells Urine Bacteria Stl C. cayetanensis PCR Stool Rotavirus (PCR) Stl Adenov F 40/ PCR Stool Astrovirus (PCR) Stool Campylobacter PCR Stl C.difficile Tox PCR Stool Cryptosporidium PCR Stl E.coli Shiga Tox PCR Stool E coli O157 PCR Stl Enterotoxigenic E PCR Stool EPEC (PCR) Stool EAEC (PCR) Stl E. histolytica PCR Stool Giardia Lamblia PCR Stool Salmonella PCR Stool Sapovirus (PCR) Stl P. 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: Status: Acute Code(s): I63.239 - Cerebral infarction due to unspecified occlusion or stenosis of unspecified carotid artery Meds Home Medications and Allergies Home Medications ?Medication ?Instructions ?Recorded ?Confirmed ?Type naproxen sodium 220 mg tablet 220 mg PO BIDP PRN Mild Pain 04/11/24 03/02/25 History (Cory) (Scale Score 1-4) prednisone 1 mg tablet 2 mg PO DAILY 04/11/2403/02 History doxazosin 4 mg tablet (Cardura) 4 mg PO DAILY #30 tabs 10/09/24 03/02/25 Rx verapamil 240 mg 24 hr 240 mg PO BID #60 caps 10/0903/02/25 Rx capsule,extended release apixaban 5 mg tablet 5 mg PO BID 30 days #60 tabs 12/27/24 03/02/25 Rx sulfasalazine 500 mg 1 g PO BID 01/30/25 03/02/25 History tablet,delayed release albuterol sulfate 90 mcg/actuation 2 inh inhalation DA BONIFACIO 03/02/25 03/02/25 History aerosol inhaler bumetanide 1 mg tablet 1 mg PO DAILY 03/02/2503/02 History carvedilol 6.25 mg tablet (Coreg) 6.25 mg PO BIDWMEAL 03/02/25 03/02/25 History empagliflozin 25 mg-linagliptin 5 1 tab PO DAILY 03/0203/02/25 History mg tablet (Glyxambi) polyethylene glycol 3350 17 17 g PO DAILY 03/02/25 History gram/dose oral powder (Miralax) potassium chloride 20 mEq 20 meq PO DAILY 03/02/25 History tablet,extended release(part/cryst) pravastatin 40 mg tablet 40 mg PO DAILY 03/02/2502/16 History valsartan 320 1 tab PO DAILY 03/02/2502/16 History mg-hydrochlorothiazide 25 mg tablet New Prescriptions to Start Prescriptions: Allergies Allergy/AdvReac Type Severity Reaction Status Date / Time amlodipine Allergy Mild edema Verified 02/27/25 10:57 Discharge Plan Disposition Patient Disposition: Xfer Short-Term Hosp Condition: Fair Discharge Order Discharge Orders: Discharge Order (Routine); Ordered 03/03/25 Ordered By: Wilton Sanderson Follow up Plan Prescriptions/Medication Reconciliation: No Action sulfasalazine 500 mg tablet,delayed release (DR/EC) 1 g PO BID naproxen sodium [Aleve] 220 mg tablet 220 mg PO BIDP PRN (Reason: Mild Pain (Scale Score 1-4)) prednisone 1 mg tablet 2 mg PO DAILY Patient Comments: TAKE 2 TABLETS BY MOUTH ONCE DAILY apixaban 5 mg tablet 5 mg PO BID 30 Days Qty: 60 5RF verapamil 240 mg capsule,ext rel. pellets 24 hr 240 mg PO BID Qty: 60 5RF doxazosin [Cardura] 4 mg tablet 4 mg PO DAILY Qty: 30 5RF carvedilol [Coreg] 6.25 mg tablet 6.25 mg PO BIDWMEAL Rx Instructions: must administer with a meal/food pravastatin 40 mg tablet 40 mg PO DAILY potassium chloride 20 mEq tablet,ER particles/crystals 20 meq PO DAILY bumetanide 1 mg tablet 1 mg PO DAILY polyethylene glycol 3350 [Miralax] 17 gram/dose powder 17 g PO DAILY Rx Instructions: Take this medication if you have not had a bowel movement in 2 or more days. albuterol sulfate 90 mcg/actuation HFA aerosol inhaler 2 inh inhalation DAILY valsartan-hydrochlorothiazide 320-25 mg tablet 1 tab PO DAILY Glyxambi 25-5 mg tablet 1 tab PO DAILY Problem Reconciliation Problems Reviewed?: Yes Patient Discharge Instructions Patient Instructions: DI for Fatigue, DI for Hypokalemia Print Language: Nigerian Providers Primary Care Provider: Shahid Guthrie Admit Provider: Wilton Sanderson Attending Provider: Wilton Sanderson
--- NOTE | 2025-03-03 11:58 | PC.NURSE ---
GAVE REPORT TO [facility]
--- NOTE | 2025-03-03 12:47 | PC.NURSE ---
NOTIFIED EMS FOR TRANSPORT
--- OUTSIDE RECORDS SUMMARY | 2025-03-03 15:18 | XMS_ITS | Encounter Summary ---
[facility] [address] [place] [address] Care Team Providers Care Professor Of German Name Role Phone Shahid Guthrie MD Primary Care Provider [phone] Reason for Visit * Auth/Cert Specialty Diagnoses / Procedures Referred By Contac t Referred To Contact Diagnoses Other (CVA) Referral ID Status Reason Start Date Expiration Date Visits Re quested Visits Authorized [id number] Encounter Details Date Type Department Care Team (Late st Contact Info) Description 03/03/2025 3:18 PM EDT - Present Hospital Encounter [facility] [address] [phone] Naun Moreira MD [address] [place] [address] Mack Prince, DO [address] [facility] [address] [place] [address] Social History Tobacco Use Types Packs/Day Years Used Date Smoking Tobacco: Former Cigarettes Smokeless Tobacco: Never Alcohol Use Standard Drinks/Week Comments Not Currently 0 (1 standard drink = 0.6 oz pur e alcohol) AUDIT-C Answer Date Recorded Q1: How often do you have a drink containing alcohol? Never 03/03/2025 Q2: How many drinks containi ng alcohol do you have on a typical day when you are drinking? Patient does not drink Q3: How often do you have si x or more drinks on one occasion? Never 03/03/2025 Housing Stability Answer Date Recorded Current Living Arrangements home 02/16 Potentially Unsafe Housing Conditions Not on lula e 03/03/2025 Disabilities Answer Date Recorded Difficulty Concentrating, Remembering or Making Decisions no 03/03/2025 Difficulty Managing Errands Independently no 03/03/2025 Sex and Gender Information Value Date Recorded Sex Assigned at Not on file Legal Sex Male 11:16 AM EDT Gender Identity Not on file Sexual Orientation Not on file documented as of this encounter Last Filed Vital Signs Vital Sign Reading Time Taken Comments Blood Pressure 111/61 03/03/2025 3:02 PM EDT Pulse 61 03/03/2025 3:02 PM EDT Temperature 36.9 C (98.4 F) 03/03/2025 3:02 PM EDT Respiratory Rate 18 03/03/2025 3:02 PM EDT Oxygen Saturation 96% 03/03/2025 3:02 PM EDT Inhaled Oxygen Concentration - - Weight 111 kg (245 lb) 03/03/2025 3:02 PM EDT Height 177.8 cm (5' 10 ) 03/03/2025 3:02 PM EDT Body Mass Index 35.15 03/03/2025 3:02 PM EDT documented in this encounter Functional Status * Question Answer Date of Assessment Author 1. Wish to be (Past 1 Month) No 03/03/2025 3:57 PM EDT Pearl Hernandez RN 2. Non-Specific Active Suicidal Thoughts (Past 1 Month) No 03/03/2025 3:57 PM EDT Pearl Hernandez RN * Calculated C-SSRS Risk Score (Lifetime/Recent) Answer Date of Assessment Author No Risk Indicated 03/03/2025 3:57 PM EDT Britt Oscar RN * [place] Suicide Severity Rating Scale (Screener/Recent Self-Report) Question Answer Date of Assessment Author 6. Suicidal Behavior (Lifetime) No 03/03/2025 3:57 PM EDT Pearl Hernandez RN documented as of this encounter Plan of Treatment Upcoming Encounters Date Type Department Care Team (Late st Contact Info) Description 05/22/2025 11:00 AM EST Appointment [facility] [address] [place] [phone] 05/22/2025 11:30 AM EST Office Visit [facility] [address] [place] [address] Chris Aponte APRN [address] [facility] [address] [place] [address] Scheduled Orders Name Type Priority Associated Diagnoses Order Schedule POC Glucose Q6H Point of Care Testing Routine Every 6hr for 999 Occurrences starting 03/03/2025 until 11/08/2025 Hemoglobin A1c Lab Routine AM Draw fo r 1 Occurrences starting 03/04/2025 until 03/04/2025 Lipid Panel Lab Routine AM Draw for 1 Occurrences starting 03/04/2025 until 03/04/2025 MRI Brain Without Contrast Imaging Routine One Time Imaging for 1 Occurrences starting 03/03/2025 until 03/03/2025 Bilateral Carotid Duplex Vascular Ultrasound Routine Once for 1 Occurrences starting 03/03/2025 until 03/03/2025 Adult Transthoracic Echo Complete W/ Cont if Necessary Per Protocol (With Agitated Saline) Echocardiography Routine Once for 1 Occurrences starting 03/03/2025 until 03/03/2025 Oxygen Therapy- Nasal Cannula; Titrate 1-6 LPM Per SpO2; 90 - 95% Respiratory Care Routine continuous prn until discontinued starting 03/03/2025 CBC Auto Differential Lab Routine AM Draw for 1 Occurrences starting 03/04/2025 until 03/04/2025 Comprehensive Metabolic Panel Lab Routine AM Draw for 1 Occurrences starting 03/04/2025 until 03/04/2025 Magnesium Lab Routine AM Draw for 1 Occurrences starting 03/04/2025 until 03/04/2025 Phosphorus Lab Routine AM Draw for 1 Occurrences starting 03/04/2025 until 03/04/2025 documented as of this encounter Visit Diagnoses Diagnosis Stroke-like symptoms- Primary Chronic anticoagulation Encounter for long-term (current) use of anticoagulants Type 2 diabetes mellitus with hyperglycemia, without long-term current use of insulin Stenosis of left carotid artery Occlusion and stenosis of carotid artery without mention of cerebral infarction PAF (paroxysmal atrial fibrillation) Atrial fibrillation Primary hypertension Unspecified essential hypertension documented in this encounter Admitting Diagnoses Diagnosis Stroke-like symptoms documented in this encounter Administered Medications Active Administered Medications - up to 3 most recent administrations Medication Order MAR Action Action Date Dose Rate Site acetaminophen (TYLENOL) tablet 650 mg 650 mg, Oral, Every 4 Hours PRN, Mild Pain, Starting on 03/03/25 at 1549, If given for fever, use fever parameter: fever greater than 100.4 F Based on patient request - if ordered for moderate or severe pain, provider allows for administration of a medication prescribed for a lower pain scale. Do not exceed 4 grams of acetaminophen in a 24 hr period. Max dose of 2gm for AST/ALT greater than 120 units/L. If given for pain, use the following pain scale: Mild Pain = Pain Score of 1-3, CPOT 1-2 Moderate Pain = Pain Score of 4-6, CPOT 3-4 Severe Pain = Pain Score of 7-10, CPOT 5-8 aluminum-magnesium hydroxide-simethicone (MAALOX MAX) 400-400-40 MG/5ML suspension 15 mL 15 mL, Oral, Every 6 Hours PRN, Heartburn, Starting on 03/03/25 at 1549, Maximum 60 mL in 24 hours. aspirin chewable tablet 81 mg 81 mg, Oral, Daily, First dose on 03/04/25 at 0900, If patient fails dysphagia, TX option MUST be given. Do not exceed 4 grams of aspirin in a 24 hr period. If given for pain, use the following pain scale: Mild Pain = Pain Score of 1-3, CPOT 1-2 Moderate Pain = Pain Score of 4-6, CPOT 3-4 Severe Pain = Pain Score of 7-10, CPOT 5-8 aspirin suppository 300 mg 300 mg, Rectal, Daily, First dose on 03/04/25 at 0900, If patient fails dysphagia, TX option MUST be given. Do not exceed 4 grams of aspirin in a 24 hr period. If given for pain, use the following pain scale: Mild Pain = Pain Score of 1-3, CPOT 1-2 Moderate Pain = Pain Score of 4-6, CPOT 3-4 Severe Pain = Pain Score of 7-10, CPOT 5-8 atorvastatin (LIPITOR) tablet 80 mg 80 mg, Oral, Nightly, First dose on 03/03/25 at 2100, Avoid grapefruit juice. bisacodyl (DULCOLAX) EC tablet 5 mg 5 mg, Oral, Daily PRN, Constipation, Use if polyethylene glycol is ineffective, Starting on 03/03/25 at 1549, Use if no bowel movement after 12 hours. Swallow whole. Do not crush, split, or chew tablet. bisacodyl (DULCOLAX) suppository 10 mg 10 mg, Rectal, Daily PRN, Constipation, Use if bisacodyl oral is ineffective, Starting on 03/03/25 at 1549, Use if no bowel movement after 12 hours. Hold for diarrhea Calcium Replacement - Follow Nurse / BPA Driven Protocol Open Order & Select [facility] Electrolyte Replacement Protocol Algorithm to View Details Magnesium Standard Dose Replacement - Follow Nurse / BPA Driven Protocol Open Order & Select [facility] Electrolyte Replacement Protocol Algorithm to View Details melatonin tablet 5 mg 5 mg, Oral, Nightly, First dose on 03/03/25 at 2100 ondansetron (ZOFRAN) injection 4 mg 4 mg, Intravenous, Every 6 Hours PRN, Nausea, Vomiting, Starting on 03/03/25 at 1549, If BOTH ondansetron (ZOFRAN) and promethazine (PHENERGAN) are ordered use ondansetron first and THEN promethazine IF ondansetron is ineffective. Phosphorus Replacement - Follow Nurse / BPA Driven Protocol Open Order & Select [facility] Electrolyte Replacement Protocol Algorithm to View Details polyethylene glycol (MIRALAX) packet 17 g 17 g, Oral, Daily PRN, Constipation, Use if senna-docusate is ineffective, Starting on 03/03/25 at 1549, Use if no bowel movement after 12 hours. Mix in 6-8 ounces of water. Use 4-8 ounces of water, tea, or juice for each 17 gram dose. Potassium Replacement - Follow Nurse / BPA Driven Protocol Open Order & Select [facility] Electrolyte Replacement Protocol Algorithm to View Details sennosides-docusate (PERICOLACE) 8.6-50 MG per tablet 2 tablet 2 tablet, Oral, 2 Times Daily PRN, Constipation, Starting on 03/03/25 at 1549, Start bowel management regimen if patient has not had a bowel movement after 12 hours. sodium chloride 0.9 % flush 10 mL 10 mL, Intravenous, Every 12 Hours Scheduled, First dose on 03/03/25 at 2100 sodium chloride 0.9 % flush 10 mL 10 mL, Intravenous, As Needed, Line Care, Starting on 03/03/25 at 1501 sodium chloride 0.9 % flush 10 mL 10 mL, Intravenous, Every 12 Hours Scheduled, First dose on 03/03/25 at 2100 sodium chloride 0.9 % flush 10 mL 10 mL, Intravenous, As Needed, Line Care, Starting on 03/03/25 at 1549 sodium chloride 0.9 % infusion 40 mL 40 mL, Intravenous, at 100 mL/hr, As Needed, Line Care, Starting on 03/03/25 at 1501, Following administration of an IV intermittent medication, flush line with 40mL NS at 100mL/hr. sodium chloride 0.9 % infusion 40 mL 40 mL, Intravenous, As Needed, Line Care, Starting on 03/03/25 at 1549, Following administration of an IV intermittent medication, flush line with 40mL NS at 100mL/hr. documented in this encounter Active and Recently Administered Medications Times are shown in EDT. Scheduled Medication Order 03/01/2025 03/02/2025 03/03/2025 aspirin chewable tablet 81 mg(Linked Group 1) 81 mg, Oral, Daily, First dose on 03/04/25 at 0900, If patient fails dysphagia, TX option MUST be given. Do not exceed 4 grams of aspirin in a 24 hr period. If given for pain, use the following pain scale: Mild Pain = Pain Score of 1-3, CPOT 1-2 Moderate Pain = Pain Score of 4-6, CPOT 3-4 Severe Pain = Pain Score of 7-10, CPOT 5-8 aspirin suppository 300 mg(Linked Group 1) 300 mg, Rectal, Daily, First dose on 03/04/25 at 0900, If patient fails dysphagia, TX option MUST be given. Do not exceed 4 grams of aspirin in a 24 hr period. If given for pain, use the following pain scale: Mild Pain = Pain Score of 1-3, CPOT 1-2 Moderate Pain = Pain Score of 4-6, CPOT 3-4 Severe Pain = Pain Score of 7-10, CPOT 5-8 atorvastatin (LIPITOR) tablet 80 mg 80 mg, Oral, Nightly, First dose on 03/03/25 at 2100, Avoid grapefruit juice. 2100 (Due) melatonin tablet 5 mg 5 mg, Oral, Nightly, First dose on 03/03/25 at 2100 2100 (Due) sodium chloride 0.9 % flush 10 mL 10 mL, Intravenous, Every 12 Hours Scheduled, First dose on 03/03/25 at 2099 2100 (Due) sodium chloride 0.9 % flush 10 mL 10 mL, Intravenous, Every 12 Hours Scheduled, First dose on 03/03/25 at 2099 2100 (Due) PRN Medication Order 03/01/2025 03/02/2025 03/03/2025 acetaminophen (TYLENOL) tablet 650 mg 650 mg, Oral, Every 4 Hours PRN, Mild Pain, Starting on 03/03/25 at 1549, If given for fever, use fever parameter: fever greater than 100.4 F Based on patient request - if ordered for moderate or severe pain, provider allows for administration of a medication prescribed for a lower pain scale. Do not exceed 4 grams of acetaminophen in a 24 hr period. Max dose of 2gm for AST/ALT greater than 120 units/L. If given for pain, use the following pain scale: Mild Pain = Pain Score of 1-3, CPOT 1-2 Moderate Pain = Pain Score of 4-6, CPOT 3-4 Severe Pain = Pain Score of 7-10, CPOT 5-8 aluminum-magnesium hydroxide-simethicone (MAALOX MAX) 400-400-40 MG/5ML suspension 15 mL 15 mL, Oral, Every 6 Hours PRN, Heartburn, Starting on 03/03/25 at 1549, Maximum 60 mL in 24 hours. bisacodyl (DULCOLAX) EC tablet 5 mg(Linked Group 2) 5 mg, Oral, Daily PRN, Constipation, Use if polyethylene glycol is ineffective, Starting on 03/03/25 at 1549, Use if no bowel movement after 12 hours. Swallow whole. Do not crush, split, or chew tablet. bisacodyl (DULCOLAX) suppository 10 mg(Linked Group 2) 10 mg, Rectal, Daily PRN, Constipation, Use if bisacodyl oral is ineffective, Starting on 03/03/25 at 1549, Use if no bowel movement after 12 hours. Hold for diarrhea Calcium Replacement - Follow Nurse / BPA Driven Protocol Open Order & Select S Electrolyte Replacement Protocol Algorithm to View Details Magnesium Standard Dose Replacement - Follow Nurse / BPA Driven Protocol Open Order & Select S Electrolyte Replacement Protocol Algorithm to View Details ondansetron (ZOFRAN) injection 4 mg 4 mg, Intravenous, Every 6 Hours PRN, Nausea, Vomiting, Starting on 03/03/25 at 1549, If BOTH ondansetron (ZOFRAN) and promethazine (PHENERGAN) are ordered use ondansetron first and THEN promethazine IF ondansetron is ineffective. Phosphorus Replacement - Follow Nurse / BPA Driven Protocol Open Order & Select [facility] Electrolyte Replacement Protocol Algorithm to View Details polyethylene glycol (MIRALAX) packet 17 g(Linked Group 2) 17 g, Oral, Daily PRN, Constipation, Use if senna-docusate is ineffective, Starting on 03/03/25 at 1549, Use if no bowel movement after 12 hours. Mix in 6-8 ounces of water. Use 4-8 ounces of water, tea, or juice for each 17 gram dose. Potassium Replacement - Follow Nurse / BPA Driven Protocol Open Order & Select [facility] Electrolyte Replacement Protocol Algorithm to View Details sennosides-docusate (PERICOLACE) 8.6-50 MG per tablet 2 tablet(Linked Group 2) 2 tablet, Oral, 2 Times Daily PRN, Constipation, Starting on 03/03/25 at 1549, Start bowel management regimen if patient has not had a bowel movement after 12 hours. sodium chloride 0.9 % flush 10 mL 10 mL, Intravenous, As Needed, Line Care, Starting on 03/03/25 at 1501 sodium chloride 0.9 % flush 10 mL 10 mL, Intravenous, As Needed, Line Care, Starting on 03/03/25 at 1549 sodium chloride 0.9 % infusion 40 mL 40 mL, Intravenous, at 100 mL/hr, As Needed, Line Care, Starting on 03/03/25 at 1501, Following administration of an IV intermittent medication, flush line with 40mL NS at 100mL/hr. sodium chloride 0.9 % infusion 40 mL 40 mL, Intravenous, As Needed, Line Care, Starting on 03/03/25 at 1549, Following administration of an IV intermittent medication, flush line with 40mL NS at 100mL/hr. Linked Groups Order Group 1: aspirin chewable tablet 81 mgJump to med 81 mg, Oral, Daily, First dose on 03/04/25 at 0900, If patient fails dysphagia, TX option MUST be given. Do not exceed 4 grams of aspirin in a 24 hr period. If given for pain, use the following pain scale: Mild Pain = Pain Score of 1-3, CPOT 1-2 Moderate Pain = Pain Score of 4-6, CPOT 3-4 Severe Pain = Pain Score of 7-10, CPOT 5-8 Or aspirin suppository 300 mgJump to med 300 mg, Rectal, Daily, First dose on 03/04/25 at 0900, If patient fails dysphagia, TX option MUST be given. Do not exceed 4 grams of aspirin in a 24 hr period. If given for pain, use the following pain scale: Mild Pain = Pain Score of 1-3, CPOT 1-2 Moderate Pain = Pain Score of 4-6, CPOT 3-4 Severe Pain = Pain Score of 7-10, CPOT 5-8 Group 2: sennosides-docusate (PERICOLACE) 8.6-50 MG per tablet 2 tabletJump to med 2 tablet, Oral, 2 Times Daily PRN, Constipation, Starting on 03/03/25 at 1549, Start bowel management regimen if patient has not had a bowel movement after 12 hours. And polyethylene glycol (MIRALAX) packet 17 gJump to med 17 g, Oral, Daily PRN, Constipation, Use if senna-docusate is ineffective, Starting on 03/03/25 at 1549, Use if no bowel movement after 12 hours. Mix in 6-8 ounces of water. Use 4-8 ounces of water, tea, or juice for each 17 gram dose. And bisacodyl (DULCOLAX) EC tablet 5 mgJump to med 5 mg, Oral, Daily PRN, Constipation, Use if polyethylene glycol is ineffective, Starting on 03/03/25 at 1549, Use if no bowel movement after 12 hours. Swallow whole. Do not crush, split, or chew tablet. And bisacodyl (DULCOLAX) suppository 10 mgJump to med 10 mg, Rectal, Daily PRN, Constipation, Use if bisacodyl oral is ineffective, Starting on 03/03/25 at 1549, Use if no bowel movement after 12 hours. Hold for diarrhea documented in this encounter Care Teams Professor Of German Relationship Specialty Start Date End Date Shahid Guthrie MD [address] [place] [address] [place] [id number] PCP - General Internal Medicine 12/24/23 documented as of this encounter
--- OUTSIDE RECORDS SUMMARY | 2025-03-03 15:58 | XMS_ITS | Encounter Summary ---
Author Organization [facility] Address [address] [place] [address] Care Team Providers Care Supervisor Irrigation Name Role Phone Shahid Guthrie MD Primary Care Provider [phone] Reason for Visit * Reason Comments Med Refill Encounter Details Date Type Department Care Team (Late st Contact Info) Description 01/01/2025 Refill [facility] [address] [phone] Ok Richards MD [address] [phone] Social History Tobacco Use Types Packs/Day Years [...] PM EDT Need all labs done at [facility] this month for review prior to refill [...] Info) Description 05/22/2025 11:00 AM EST Appointment [facility] DEXA [address] [phone] 05/22/2025 11:30 AM EST Office Visit [facility] [address] [phone] Chris Aponte APRN [address] [address] documented as of this encounter Visit Diagnoses Not on filedocumented in this encounter Care Teams Supervisor Irrigation Relationship Specialty Start Date End Date Shahid Guthrie MD [address] [facility] [address] [facility] [address] [place] [address] PCP - General Internal Medicine 12/24/23 documented as of this encounter
--- OUTSIDE RECORDS SUMMARY | 2025-03-03 15:58 | XMS_ITS | Encounter Summary ---
Author Organization [facility] Address [address] [place] [address] Care Team Providers Care Green Feed Attendant Name Role Phone Shahid Guthrie MD Primary Care Provider [phone] Encounter Details Date Type Department Care Team (Latest Contact Info) Description 03/03/2025 Travel Social History Tobacco Use Types Packs/Day [...] on file documented as of this encounter Functional Status * Question Answer [...] 3:57 PM EDT Britt Oscar RN * [place] Suicide Severity Rating Scale (Screener/Recent Self-Report) Question Answer Date of Assessment Author 6. Suicidal Behavior (Lifetime) No 03/03/2025 3:57 PM EDT Pearl Hernandez RN documented as of this encounter Plan of Treatment Upcoming Encounters Date Type Department Care Team (Late st Contact Info) Description 05/22/2025 11:00 AM EST Appointment [facility] RHEUMATOLOGY DEXA [address] [address] 05/22/2025 11:30 AM EST Office Visit [facility] RHEUMATOLOGY [address] [address] Chris Aponte, LEONEL [address] [phone] documented as of this encounter Visit Diagnoses Not on filedocumented in this encounter Care Teams Green Feed Attendant Relationship Specialty Start Date End Date Shahid Guthrie MD 1210 [facility] [address] [place] [address] PCP - General Internal Medicine 12/24/23 documented as of this encounter
--- OUTSIDE RECORDS SUMMARY | 2025-03-03 15:58 | XMS_ITS | Encounter Summary ---
[facility] Organization [facility] Address [address] [place] [address] Care Team Providers Care Clerk Of Works Name Role Phone Shahid Guthrie MD Primary Care Provider [phone] Reason for Visit * Reason Onset Date Comments Advice Only 01/16/2025 Encounter Details Date Type Department Care Team (Late st Contact Info) Description 01/16/2025 Telephone [facility] RHEUMATOLOGY [address] [address] Ok Richards MD [address] [address] Advice Only Social History Tobacco Use Types [...] is asking for a return call from ADB regarding this patient. Dr. Deepak Carney [phone] -ZC documented in this encounter Plan of Treatment Upcoming Encounters Date Type Department Care Team (Late st Contact Info) Description 05/22/2025 11:00 AM EST Appointment [facility] RHEUMATOLOGY DEXA [address] [address] 05/22/2025 11:30 AM EST Office Visit [facility] RHEUMATOLOGY [address] [address] Chris Aponte APRN [address] [address] documented as of this encounter Visit Diagnoses Not on filedocumented in this encounter Care Teams Clerk Of Works Relationship Specialty Start Date End Date Shahid Guthrie MD 1210 [place] [facility] [address] [place] [address] PCP - General Internal Medicine 12/24/23 documented as of this encounter
--- OUTSIDE RECORDS SUMMARY | 2025-03-03 15:58 | XMS_ITS | Encounter Summary ---
Author Organization [facility] Address [address] [place] [address] Care Team Providers Care Section Leader And Machine Setter Name Role Phone Shahid Guthrie MD Primary Care Provider [phone] Encounter Details Date Type Department Care Team [...] Info) Description 05/22/2025 11:00 AM EST Appointment [facility] RHEUMATOLOGY DEXA [address] [address] 05/22/2025 11:30 AM EST Office Visit [facility] RHEUMATOLOGY [address] [place] [address] Chris Aponte, LEONEL 330 [facility] [address] [place] [address] documented as of this encounter Visit Diagnoses Not on filedocumented in this encounter Care Teams Section Leader And Machine Setter Relationship Specialty Start Date End Date Shahid Guthrie MD 1210 [facility] [address] [place] [address] PCP - General Internal Medicine 12/24/23 documented as of this encounter
--- OUTSIDE RECORDS SUMMARY | 2025-03-03 15:58 | XMS_ITS | Clinical Summary ---
Author Organization [facility] Address [address] [place] [address] Care Team Providers Care Bleach Boiler Packer Name Role Phone Shahid Guthrie MD Primary Care Provider [phone] Allergies No known active allergies Medications pravastatin (PRAVACHOL) 40 MG tablet Take 1 tablet by mouth Daily. Suspended apixaban (ELIQUIS) 5 MG tablet tablet Take 1 tablet by mouth 2 (Two) Times a Day. Suspended bumetanide (BUMEX) 0.5 MG tablet Take 1 tablet by mouth Every Morning. 4 Suspended potassium chloride (KLOR-CON M20) 20 MEQ CR tablet Take 1 tablet by mouth Daily. 4 Suspended valsartan-hydr ochlorothiazid e (DIOVAN-HCT) 320-25 MG per tablet Take 1 tablet by mouth Daily. 4 Suspended carvedilol (COREG) 6.25 MG tablet TAKE 1 TABLET BY MOUTH TWICE DAILY MUST ADMINISTER WITH A MEAL/FOOD 4 Suspended doxazosin (CARDURA) 4 MG tablet Take 1 tablet by mouth Daily. 4 Suspended verapamil ER (VERELAN) 240 MG 24 hr capsule Take 1 capsule by mouth Every 12 (Twelve) Hours. 4 Suspended polyethylene glycol (MiraLax) 17 GM/SCOOP powder Take 17 g by mouth Daily. Suspended albuterol sulfate HFA 108 (90 Base) MCG/ACT inhaler Inhale 2 puffs Daily. 5 Suspended predniSONE (DELTASONE) 1 MG tablet Take 2 tablets by mouth Daily. 180 tablet 1 5 Suspended sulfaSALAzine (AZULFIDINE ENTABS) 500 MG EC tablet Take 1 tablet by mouth Take As Directed. 1 tab qd for 3 days, 1 tab bid for 3 days, 2 tabs po bid thereafter for arthritis after meals 120 tablet 3 5 Suspended naproxen sodium (ALEVE) 220 MG tablet Take 1 tablet by mouth 2 (Two) Times a Day As Needed for Mild Pain. Suspended Empagliflozin- Linaglip-Metfo rm 25-5-1000 MG tablet sustained-rele ase 24 hour Take 1 tablet by mouth Daily. 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 Little hx of melanoma removed from [...] medical therapy. Recent labs reviewed 12/20/2023 from [facility] and are stable. Plan will be to continue current medication, frequent intensive lab monitoring every 8-12 weeks (CBC, CMP) for toxicity monitoring. Standing lab order provided Slight aching and triggering of the left second finger. Recommend topical diclofenac gel follow up in 4 months Encounters Date Type Department Care Team Description 03/03/2025 3:18 PM EDT - Present Hospital Encounter [facility] [address] [place] [phone] Naun Moreira MD Pianti, Richard M, DO 03/03/2025 Travel 01/16/2025 1:30 PM EDT Office Visit [facility] RHEUMATOLOGY [address] [place] [address] Ok Richards MD Rheumatoid arthritis involving multiple sites with positive rheumatoid factor (Primary Dx); High risk medication use; Immunosuppression due to drug therapy; custodial (current) use of systemic steroids 01/16/2025 Telephone [facility] RHEUMATOLOGY [address] [place] [address] Ok Richards MD Advice Only 01/16/2025 Travel 01/01/2025 Refill [facility] RHEUMATOLOGY [address] [place] [address] Ok Richards MD 12/16/2024 Refill [facility] RHEUMATOLOGY [address] [place] [address] Ok Richards MD from Last 3 [...] Mass Index 35.15 03/03/2025 3:02 PM EDT Plan of Treatment Upcoming Encounters Date Type Department Care Team (Late st Contact Info) Description 05/22/2025 11:00 AM EST Appointment [facility] RHEUMATOLOGY DEXA [address] [address] 05/22/2025 11:30 AM EST Office Visit [facility] RHEUMATOLOGY [address] [address] Chris Aponte APRN [address] [phone] Health Maintenance Due Date Last Done Comments DIABETIC EYE EXAM 1952 DIABETIC FOOT EXAM 1950 URINE MICROALBUMIN-CREATININ E RATIO (uACR) 1950 RSV Vaccine - Adults (1 - 1- dose 75+ series) 2017 Pneumococcal Vaccine 50+ (2 of 2 - PCV) 05/06/2021 05/06/2020 ANNUAL WELLNESS VISIT 12/15/2023 HEMOGLOBIN A1C 12/15/2023 COVID-19 Vaccine (8 - Pfizer risk season) 2024 04/06/2024, 06/15/2023, 04/20/2022, Additional history exists INFLUENZA VACCINE 04/18/2025 04/06/2024, , 04/21/2021, Additional history exists TDAP/TD VACCINES (2 - Td or Tdap) 11/19/2034 025 ZOSTER VACCINE Completed 09/03/2022, 05/28/2022 Procedures * The patient is currently admitted. The information in this section might not be complete until the patient is discharged. Procedure Name Priority Date/Time Associated Diagnosis Comments SCANNED - LABS 01/02/2025 SCANNED - LABS 01/02/2025 from Last 3 Months Results * LABS SCANNED (01/02/2025) Only the most recent of2 resultswithin the time period is included. Ok Richards MD LAB BLOOD ORDERABLES Final Result from Last 3 Months Insurance [facility] A & B Advance Directives * CPR (Attempt to Resuscitate) (Latest Code Status on File) Date Activated Date Inactivated Comments 03/03/2025 3:53 PM Question Answer Comments Code Status (Patient has no pulse and is not breathing): CPR (Attempt to Resuscitate) Medical Interventions (Patie nt has pulse or is breathing): Full Support Level Of Support Discussed With: Patient Care Teams Bleach Boiler Packer Relationship Specialty Start Date End Date Shahid Guthrie MD [address]10 [place] [facility] [address] [place] [address] PCP - General Internal Medicine 12/24/23
--- OUTSIDE RECORDS SUMMARY | 2025-03-03 15:58 | XMS_ITS | Clinical Summary ---
Author Organization [facility] Address [address] [place] [address] Care Team Providers Care Kiln Furniture Caster Name Role Phone Unavailable Primary Care Provider [...] (2 of 2 - PCV) 05/06/2021 05/06/2020 [id number] Vaccine ( - 2023- season) 2024 04/20/2022, [...] age to complete this [place] [address] [facility]
== END 2025-03-03 13:30 | disposition short-term general hospital (02) | DRG 65 ==
LOC: ER 14:50 → 2ND 15:06
PROVIDERS: Admitting Provider Student in an Organized Health Care Education/Training Program; Emergency Provider Student in an Organized Health Care Education/Training Program; PCP Internal Medicine; Visit Provider Student in an Organized Health Care Education/Training Program
DX: I63.233 Cerebral infarction due to unspecified occlusion or stenosis of bilateral carotid arteries (principal); A04.6 Enteritis due to Yersinia enterocolitica; I50.32 Chronic diastolic (congestive) heart failure; G81.91 Hemiplegia, unspecified affecting right dominant side; A04.72 Enterocolitis due to Clostridium difficile, not specified as recurrent; E87.6 Hypokalemia; E11.9 Type 2 diabetes mellitus without complications; Z88.8 Allergy status to other drugs, medicaments and biological substances; I11.0 Hypertensive heart disease with heart failure; I48.0 Paroxysmal atrial fibrillation; I25.10 Atherosclerotic heart disease of native coronary artery without angina pectoris; R29.703 NIHSS score 3; N40.0 Benign prostatic hyperplasia without lower urinary tract symptoms; L27.1 Localized skin eruption due to drugs and medicaments taken internally; M06.9 Rheumatoid arthritis, unspecified; T45.1X5A Adverse effect of antineoplastic and immunosuppressive drugs, initial encounter; Z85.820 Personal history of malignant melanoma of skin; Z79.01 Long term (current) use of anticoagulants; Z79.84 Long term (current) use of oral hypoglycemic drugs; Z79.52 Long term (current) use of systemic steroids; Z79.899 Other long term (current) drug therapy
CPT/HCPCS: 36415; 70450; 70496; 70498; 71045; 71275; 80048; 80053; 80061; 81001; 82962; 83036; 83735; 83880; 84100; 84484; 85025; 85610; 87086; 87506; 87631; 93005; 93306; G0378; J3480; J7030; Q9967

== ENCOUNTER 2025-04-26 14:18 | Outpatient (CLI) | payer MEDICARE, BC, SELFPAY ==
--- NOTE | 2025-04-26 14:21 | XR_ITS ---
FINAL REPORT CLINICAL HISTORY: Left knee pain, rheumatoid arthritis, DJD FINDINGS: AP, lateral and oblique views of the left knee were obtained. There is no prior exam for comparison. There is no acute osseous abnormality of the left knee. There is mild degenerative joint disease with chondrocalcinosis. There is no joint effusion. IMPRESSION: Degenerative joint disease. Reviewed, Interpreted and Dictated by Lisa De Leon MD Transcribed by Ines Reina Authenticated and [facility]
--- NOTE | 2025-04-26 14:21 | XR_ITS ---
FINAL REPORT CLINICAL HISTORY: Right knee pain, rheumatoid arthritis, DJD FINDINGS: AP, lateral and oblique views of the right knee were obtained. There is no prior exam for comparison. There is no acute osseous abnormality of the right knee. There is degenerative joint disease, most pronounced in the patellofemoral compartment. There is chondrocalcinosis. There is a predominantly sclerotic lesion in the distal femoral diaphysis, favor an enchondroma. Small joint effusion is identified. IMPRESSION: Degenerative disease and probable joint effusion. Reviewed, Interpreted and Dictated by Lisa De Leon MD Transcribed by Ines Reina Authenticated and [facility]
[2025-04-26 17:15] LABS: Hematocrit 37.1 % (42.0-52.0); Hemoglobin 11.6 g/dL (14.1-18.0); Immature Granulocytes % 0.6 %; Mean Corpuscular HGB Conc 31.3 g/dL (31.8-35.4); Mean Corpuscular Hemoglobin 27.4 pg (27.0-31.2); Mean Corpuscular Volume 87.5 fl (80-94); Nucleated Red Blood Cells % 0 %; Platelet Count 465 K/mm3 (142-424); Red Blood Count 4.24 M/mm3 (4.60-6.20); Red Cell Distribution Width-SD 51.2 fL; White Blood Count 9.4 K/mm3 (4.8-10.8)
[2025-04-26 19:05] LABS: Anion Gap 15.7 mEq/L (5-15); Blood Urea Nitrogen 12 mg/dl (9-20); Calcium 8.5 mg/dl (8.4-10.2); Carbon Dioxide 29 mmol/L (22.0-30.0); Chloride 96 mmol/L (98-107); Creatinine,Serum 0.80 mg/dl (0.66-1.25); Estimated Glomerular Filt Rate 93 ml/min (>60); GFR (African American) 112 ML/MIN (>60); Glucose 97 mg/dl (74-100); Potassium 4.7 mmoL/L (3.5-5.1); Sodium 136 mmol/L (136-145)
== END 2025-04-26 23:59 | disposition home or self-care (01) ==
LOC: RAD 14:19
PROVIDERS: PCP Internal Medicine; Visit Provider Internal Medicine
DX: M17.11 Unilateral primary osteoarthritis, right knee (principal); M17.12 Unilateral primary osteoarthritis, left knee; M25.461 Effusion, right knee; M06.9 Rheumatoid arthritis, unspecified
CPT/HCPCS: 73562; 80048; 85025; 85651

== ENCOUNTER 2025-04-28 13:58 | Outpatient (CLI) | payer MEDICARE, BC, SELFPAY ==
--- OUTSIDE RECORDS SUMMARY | 2025-03-03 15:18 | XMS_ITS | Encounter Summary ---
Author Organization [facility] Address [address] [place] [address] Care Team Providers Care Air Defence Officer Name Role Phone Shahid Guthrie MD Primary Care Provider [phone] Reason for Referral * Diagnostic Imaging (Routine) - Closed Specialty Diagnoses / Procedures Referred By Contac t Referred To Contact Procedures XR Outside Chest Films, Radiant Outside Referral ID Status Reason Start Date Expiration Date Visits Re quested Visits Authorized [id number] Closed 03/03/2025 06/02/2026 1 1 * MRI/CAT/PET Scan (Routine) - Pending Review Specialty Diagnoses / Procedures Referred By Contac t Referred To Contact Procedures CT Outside Chest Films, Radiant Outside Referral ID Status Reason Start Date Expiration Date V isits Requested Visits Authorized Pending Review 03/03/2025 06/02/2026 1 1 Reason for Visit * Auth/Cert Specialty Diagnoses / Procedures Referred By Contac t Referred To Contact Diagnoses Other (CVA) Referral ID Status Reason Start Date Expiration Date Visits Re quested Visits Authorized [id number] 1 1 Encounter Details Date Type Department Care Team (Late st Contact Info) Description 03/03/2025 3:18 PM EDT - 03/08/2025 3:23 PM EDT Hospital Encounter [facility] [address] [place] [address] Naun Moreira MD [address] [place] [address] Mack Prince DO [address] [facility] [address] [place] [id number] Willy Santoyo MD [address] [facility] [address] [place] [address] Allison Zaragoza MD [address] [facility] [address] [place] [id number] Rheumatoid arthritis, involving unspecified site, unspecified whether rheumatoid factor present (Primary Dx) Discharge Disposition: Nursing Home Facility (DC - External) Social History Tobacco Use Types Packs/Day Years Used Date Smoking Tobacco: Former Cigarettes Smokeless Tobacco: Never Alcohol Use Standard Drinks/Week Comments Not Currently 0 (1 standard drink = 0.6 oz pur e alcohol) [facility] Utilities Answer Date Recorded In the past 12 months has [employer], gas, oil, or water [employer] threatened to shut off services in your home? No 03/05/2025 AUDIT-C Answer Date Recorded Q1: How often do you have a drink containing alcohol? Never 03/03/2025 Q2: How many drinks containi ng alcohol do you have on a typical day when you are drinking? Patient does not drink Q3: How often do you have si x or more drinks on one occasion? Never 03/03/2025 Overall Financial Resource Strain (CARDIA) Answe r Date Recorded How hard is it for you to pa y for the very basics like food, housing, medical care, and heating? Not very hard 03/05/2025 [facility] [place] of Occupat ional Health - Occupational Stress Questionnaire Answer Date Recorded Do you feel stress - tense, restless, nervous, or anxious, or unable to sleep at night because your mind is troubled all the time - these days? Only a little 03/05/2025 Exercise Vital Sign Answer Date Recorde d On average, how many days pe r week do you engage in moderate to strenuous exercise (like a brisk walk)? 0 days 03/05/2025 On average, how many minutes do you engage in exercise at this level? 0 min 03/05/2025 Hunger Vital Sign Answer Date Recorded Within the past 12 months, y ou worried that your food would run out before you got the money to buy more. Never true 03/05/20 25 Within the past 12 months, t he food you bought just didn't last and you didn't have money to get more. Never true 03/05/2025 PRAPARE - Transportation Answer Date Re corded In the past 12 months, has l ack of transportation kept you from medical appointments or from getting medications? No 02/16 In the past 12 months, has l ack of transportation kept you from meetings, work, or from getting things needed for daily living? No 03/05/2025 Abuse Screen Answer Date Recorded Feels Unsafe at Home or Work/School no 03/03/2025 Feels Threatened by Someone no 02/16 Does Anyone Try to Keep You From Having Contact with Others or Doing Things Outside Your Home? no 03/03/2025 Physical Signs of Abuse Present no 03/03/2025 Housing Stability Answer Date Recorded Current Living Arrangements home 02/16 Potentially Unsafe Housing Conditions none 03/05/2025 Family and Community Support Answer Shawn e Recorded If for any reason you need h elp with day-to-day activities such as bathing, preparing meals, shopping, managing finances, etc., do you get the help you need? I get all the help I need 03/05/2025 How often do you feel lonely or isolated from those around you? Never 03/05/2025 Employment Answer Date Recorded Do you want help finding or keeping work or a job? I do not need or want help 03/05/2025 Disabilities Answer Date Recorded Difficulty Concentrating, Remembering or Making Decisions no 03/05/2025 Difficulty Managing Errands Independently no 03/05/2025 Education Answer Date Recorded Do you want help with school or training? For example, starting or completing job training or getting a high school diploma, GED or equivalent Yes 03/05/2025 Preferred Language Irish 03/05/2025 PHQ-2 Answer Date Recorded Patient Health Questionnaire-2 Score 0 03/05/2025 Sex and Gender Information Value Date Recorded Sex Assigned at Not on file Legal Sex Male 11:16 AM EDT Gender Identity Not on file Sexual Orientation Not on file documented as of this encounter Last Filed Vital Signs Vital Sign Reading Time Taken Comments Blood Pressure 149/60 03/08/2025 11:00 AM EDT Pulse 89 03/08/2025 11:00 AM EDT Temperature 36.8 C (98.3 F) 03/08/2025 11:00 AM EDT Respiratory Rate 16 03/08/2025 11:00 AM EDT Oxygen Saturation 94% 03/08/2025 11:00 AM EDT Inhaled Oxygen Concentration - - Weight 111 kg (244 lb 11.4 oz) 03/04/2025 10:05 AM EDT Height 177.8 cm (5' 10 ) 03/04/2025 10:05 AM EDT Body Mass Index 35.11 03/04/2025 10:05 AM EDT documented in this encounter Functional Status * Over the past 2 weeks, how often have you been bothered by any of the following problems? Question Answer Date of Assessment Author Patient Health Questionnaire -2 Score 0 03/05/2025 9:09 AM EDT Sallie Salazar RN * Question Answer Date of Assessment Author 1. Wish to be (Past 1 Month) No 03/03/2025 3:57 PM EDT Pearl Hernandez RN 2. Non-Specific Active Suicidal Thoughts (Past 1 Month) No 03/03/2025 3:57 PM EDT Pearl Hernandez RN * Calculated C-SSRS Risk Score (Lifetime/Recent) Answer Date of Assessment Author No Risk Indicated 03/03/2025 3:57 PM EDT Britt Oscar RN * [place] Suicide Severity Rating Scale (Screener/Recent Self-Report) Question Answer Date of Assessment Author 6. Suicidal Behavior (Lifetime) No 03/03/2025 3:57 PM EDT Pearl Hernandez RN * Question Answer Date of Assessment Author Little interest or pleasure in doing things Not at all 03/05/2025 9:09 AM EDT Sallie Salazar RN Feeling down, depressed, or hopeless Not at all 03/05/2025 9:09 AM EDT Sallie Salazar RN documented as of this encounter Discharge Summaries * Sallie Salazar RN - 03/08/2025 1:14 PM EDT Images from the original note were not included. Mack Bower (84 y.o. Male) Sallie Salazar RN [phone] Date of 1940 Social Security Number [id number] Address [address] [facility] [address] [employer] Marital Status Admission Date 03/03/2025 Admission Type Urgent Admitting Provider Allison Zaragoza MD Attending Provider Allison Zaragoza MD Department, Room/Bed [facility] 3E, S346/1 Discharge Date Discharge Disposition Rehab Facility or Unit (DC - External) Discharge Destination Attending Provider: Allison Zaragoza MD Allergies: No Known Allergies Isolation: None Infection: None Code Status: CPR Ht: 177.8 cm (70 ) Wt: 111 kg (244 lb 11.4 oz) Admission Cmt: None Principal Problem: Stroke-like symptoms [R29.90] Active Insurance as of 03/03/2025 Primary Coverage Payor Plan Insurance Group Employer/Plan Group MEDICARE MEDICARE A & B Payor Plan Address Payor Plan Phone Number Payor Plan Fax Number Effective Dates [address] 09/17/2007 - None Entered [facility] [address] Subscriber Name Subscriber Date Member ID MACK BOWER 1940 [id number] Secondary Coverage Payor Plan Insurance Group Employer/Plan Group [employer] [facility] [id number] Payor Plan Address Payor Plan Phone Number Payor Plan Fax Number Effective Dates [address] 07/19/2018 - None Entered [facility] [address] Subscriber Name Subscriber Date Member ID MACK BOWER 1940 [id number] Emergency Contacts Podiatry Teacher (Rel.) Home Phone Work Phone Mobile Phone Alverto Bower (Brother) -- -- [phone] Willow Bower (Brother) -- -- [phone] Discharge Summary Allison Zaragoza MD at 03/08/25 [address] [facility] Medicine Services DISCHARGE SUMMARY Patient Name: Mack Bower : 1940 Date of Admission: 03/03/2025 3:18 PM Date of Discharge: 03/08/2025 Primary Care Physician: Shahid Guthrie MD Consults Date and Time Order Name Status Description 03/05/2025 11:00 AM Inpatient Neurology Consult General Completed 03/03/2025 3:01 PM Inpatient Neurology Consult Stroke Completed Hospital Course Presenting Problem: R sided weakness Active Hospital Problems Diagnosis POA Right sided weakness [R53.1] Yes Stenosis of left carotid artery [I65.22] Yes PAF (paroxysmal atrial fibrillation) [I48.0] Yes Primary hypertension [I10] Yes Chronic diastolic CHF (congestive heart failure) [I50.32] Yes Chronic anticoagulation [Z79.01] Not Applicable Type 2 diabetes mellitus with hyperglycemia, without long-term current use of insulin [E11.65] Yes 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 difficile diarrhea [A04.72] 03/08/2025 Yes Hospital Course: Mack Bower is a 84 y.o. male with PAF on Eliquis, HFpEF, hypertension, DM2, rheumatoid arthritis on sulfasalazine (new med since 01/2025), multiple myeloma transferred from outside hospital due to right sided weakness and possible ICA stenoses. Right sided weakness Left ICA stenosis - stroke neurology followed - MRI brain negative for ischemic event - bilateral carotid ultrasound less than 50% stenosis - continue asa 81 mg daily and eliquis 5 mg BID. Discontinued plavix. Stroke team followed - high intensity statin - target SBP 120-160, avoid hypotension - PT/OT -- IP rehab recommended -d/w neurology. Workup so far not very revealing, MRI did have abnormality at L4-L5 but likely not the explanation. B12 was low, repleting. EMG w peripheral neuropathy. Recommends pain control and PT, b12 supplementation. F/u w outpatient rheum PAF CAD - eliquis - verapamil/coreg held at admission, currently rate controlled - follows with Cardiology Dr Franks Diarrhea--resolved --initially concerns for c diff however more c/w adverse med affect. Diarrhea now resolved --d/w Dr Ok Richards, hold sulfaslazine in case diarrhea side effect of new med. Vanc dc'd HFpEF - bumex held at admission, resumed now DMII - A1c 6.6 HTN - verapamil, valsartan-HCTZ, doxazosin and coreg held at admission - BP currently at goal, add back meds stepwise as needed. Continue titrating outpatient as well. Currently well controlled on current regimen Rheumatoid Arthritis - resumed home prednisone -holding sulfasalazine as above. 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 - data deficient Discharge Follow Up Recommendations for outpatient labs/diagnostics: PCPreagan Day of Discharge HPI: No new overnight issues, was able to have a BM Review of Systems Gen- No fevers, chills CV- No chest pain, palpitations Resp- No cough, dyspnea GI- No N/V/D, abd pain Vital Signs: Temp: [98 ??F (36.7 ??C)-98.7 ??F (37.1 ??C)] 98.3 ??F (36.8 ??C) Heart Rate: [73-95] 89 Resp: [16-20] 16 BP: (126-149)/(60-80) 149/60 Flow (L/min) (Oxygen Therapy): [2-3] 2 Physical Exam: Constitutional: No acute distress, awake, alert HENT: NCAT, mucous membranes moist Respiratory: Clear to auscultation bilaterally, respiratory effort normal Cardiovascular: RRR, no murmurs, rubs, or gallops Gastrointestinal: Positive bowel sounds, soft, nontender, nondistended Musculoskeletal: No bilateral ankle edema Psychiatric: Appropriate affect, cooperative Neurologic: Oriented x 3, bilateral lower extremity flexion and extension significantly weaker. Plantar and dorsiflexion 5/5 Skin: diffuse skin lesions Pertinent and/or Most Recent Results LAB RESULTS: Lab 03/07/25 0802 03/06/25 0838 03/05/25 0811 03/04/25 0842 WBC 10.85* 11.52* 10.64 11.08* HEMOGLOBIN 11.9* 12.3* 12.2* 12.6* HEMATOCRIT 36.7* 37.5 37.1* 39.3 PLATELETS 340 299 309 222 NEUTROS ABS 8.24* 8.36* -- 8.15* IMMATURE GRANS (ABS) 0.06* 0.06* -- 0.07* LYMPHS ABS 0.93 1.28 -- 1.10 MONOS ABS 1.14* 1.29* -- 1.15* EOS ABS 0.43* 0.47* -- 0.55* MCV 93.6 93.3 94.6 96.8 SED RATE -- -- 78* -- CRP -- -- 9.14* -- Lab 03/07/25 0802 03/06/25 0953 03/05/25 0811 03/04/25 0842 03/03/25 2222 SODIUM 135* 133* 139 137 -- POTASSIUM 4.2 4.5 4.0 3.7 3.8 CHLORIDE 98 99 102 101 -- CO2 27.0 27.0 29.0 25.0 -- ANION GAP 10.0 7.0 8.0 11.0 -- BUN 12.6 11.6 13.5 16.7 -- CREATININE 0.56* 0.63* 0.69* 0.77 -- EGFR 98.4 95.0 92.4 89.4 -- GLUCOSE 135* 177* 129* 130* -- CALCIUM 8.3* 8.0* 8.4* 8.1* -- MAGNESIUM -- -- -- 2.2 2.2 PHOSPHORUS -- -- -- 2.3* -- HEMOGLOBIN A1C -- -- -- 6.62* -- Lab 03/04/25 0842 TOTAL PROTEIN 6.8 ALBUMIN 3.5 GLOBULIN 3.3 ALT (SGPT) 10 AST (SGOT) 13 BILIRUBIN 0.3 ALK PHOS 62 Lab 03/04/25 0842 CHOLESTEROL 142 LDL CHOL 89 HDL CHOL 34* TRIGLYCERIDES 103 Lab 03/05/25 1459 FOLATE 9.87 VITAMIN B 12 289 Brief Urine Lab Results None Microbiology Results (last 10 days) No results found for the last 240 hours. EMG & Nerve Conduction Test Result Date: 03/07/2025 Table formatting from the original result was not included. Images from the original result were not included. Indication: Bilateral leg weakness, greater on right, consideration of radiculopathy, peripheral neuropathy Clinical: 84 y.o.male with a history of relatively acute onset of bilateral lower extremity weakness beginning this past Wednesday roughly 5 days ago. He reports variable degrees of pain in the hip and knee on the right. His muscle bulk appears intact. His muscle strength appears good but examination was extremely limited due to pain with any significant movement of the ankle, knee or hip. He has diminished distal sensation to pinprick and vibration. His reflexes are reduced at the knee and ankle on the right. Radiculopathy and neuropathy are clinical considerations. NCS/EMG TECHNICAL DATA: All studies are performed at a skin temperature of 34??C or greater. Distal sensory latencies are calculated to waveform peak. Sensory amplitudes are measured peak to peak Distal motor l atencies are calculated to waveform onset. Motor amplitudes are calculated baseline to peak Nerve Conduction Studies Anti Sensory Summary Table Stim Site NR Peak (ms) Norm Peak (ms) P-T Amp (??V) Norm P-T Amp Site1 Site2 Delta-P (ms) Dist (cm) César (m/s) Norm César (m/s) Right Sup Fibular Anti Sensory(Ant Lat Mall) 14 cm NR <4.4 >5.0 14 cm Ant Lat Mall 14.0 >32 Ortho Sensory Summary Table Stim Site NR Peak (ms) Norm Peak (ms) P-T Amp (??V) Norm P-T Amp Site1 Site2 Delta-P (ms) Dist (cm) César (m/s) Norm C[place]ar (m/s) Right Median Ortho Sensory (Wrist) 2nd Digit 2.3 7.3 2nd Digit Wrist 2.3 8.0 35 Right Ulnar Ortho Sensory (Wrist) 5th Digit 1.5 7.6 5th Digit Wrist 1.5 8.0 53 Motor Summary Table Stim Site NR Onset (ms) Norm Onset (ms) O-P Amp (mV) Norm O-P Amp Site1 Site2 Delta-0 (ms) Dist ( cm) César (m/s) Norm César (m/s) Right Fibular Motor (Ext Dig Brev) Ankle 4.3 <6.1 2.2 >2.5 B FibAnkle 9.4 36.0 38 >40 B Fib 13.7 1.9 Poplt B Fib 1.3 10.0 77 >40 Poplt 15.0 1.7 Right Tibial Motor (Abd Valerio Brev) Ankle 3.3 <6.1 0.3 >3.0 Knee Ankle 0.0 >40 Knee NR F Wave Studies NR F-Lat (ms) Lat Norm (ms) L-R F-Lat (ms) L-R Lat Norm M-Lat (ms) FLat-MLat (ms) Right Fibular (Mrkrs)(EDB) 73.14 <60 <5.1 4.00 69.14 Right Tibial (Mrkrs) (Abd Hallucis) 67.33 <61 <5.7 5.3362.00 H Reflex Studies NR H-Lat (ms) L-R H-Lat (ms) L-R Lat Norm Left Tibial (Mrkrs) (Gastroc) NR <2.0 Right Tibial (Mrkrs) (Gastroc) NR <2.0 EMG Side Muscle Nerve Root Ins Act Fibs Psw Amp DurPoly Recrt Int Pat Comment Right AntTibialis Dp Br Fibular L4-5 Nml Nml Nml Nml Nml 0 Nml Nml RightFibularis Long Sup Br Fibular L5-S1 Nml Nml Nml Nml Nml 0 Nml Nml Right PostTibialis Tibial L5, S1 Nml Nml Nml Nml Nml 0 Nml Nml Right VastusLat Femoral L2-4 Nml Nml Nml Nml Nml 0 Nml Nml Right Add Ma gnus Obturator, Sciat L2-4 Nml Nml Nml Nml Nml 0 Nml Nml Waveforms: FINDINGS: Nerve Conduction Studies: No responses seen following stimulation of the right superficial peroneal sensory nerve Amplitude of the right peroneal motor nerve is reduced to 2.2 mV and velocity is slowed at 38 m/s between knee and ankle Amplitude of the right posterior tibial motor nerve is reduced at 0.3 mV Motor F wave latency of the right posterior tibial motor nerve and right peroneal motor nerve are prolonged H-reflexes are not reliably seen on either side Median sensory latency on the right is minimally prolonged at 2.3 ms and amplitude is reduced Ulnar sensory latency on the right is normal at 1.5 ms and amplitude is reduced Electromyogram: Needle examination of the right leg is unremarkable. The lumbar paraspinous muscles could not be interrogated due to difficulty with patient repositioning Sensorimotor neuropathy, axonal, mild-moderate No electrophysiologic evidence for radiculopathy or plexopathy is seen in the right leg Note-this study is performed relatively early on Following onsetof weakness. Should neurological symptoms persist or worsen, a repeat study in the future may be ofvalue This report is transcribed using the [employer] dictation system. MRI Thoracic Spine With & Without Contrast Result Date: 03/06/2025 MRI THORACIC SPINE W WO CONTRAST Date of Exam: 03/05/2025 10:46 PM EDT Indication: Bilateral lower extremity weakness and pain. Comparison: None available. Technique: Routine multiplanar/multisequencesequence images of the thoracic spine were obtained before and after the uneventful administration of Multihance. Findings: There is a round, microlobulated T1/T2/STIR hyperintense lesion of the T8 vertebral body compatible with hemangioma. Otherwise unremarkable bone marrow signal intensity. No evidence of fracture or loss of vertebral body height. No bony edema. There is normal spinal alignment. The intervertebral disc spaces appear grossly preserved without significant loss of intervertebraldisc height or advanced degenerative disc disease. There is small right-sided ligamentum flavum hypertrophy at T11-T12 (series 10 image 10). No conspicuous disc bulge or disc protrusion. Heterogeneous CSF flow voids are seen along the dorsal cord. No significant spinal canal or neuroforaminal stenosis. There is normal morphology and signal intensity of the imaged spinal cord. The conus terminatesat the level of the inferior endplate of L1. The paravertebral soft tissues appear unremarkable. Noabnormal bony or soft tissue enhancement on the postcontrast images. No pericardial or pleural effusion. Multiple right close partial visualization of bilateral renal cortical cysts. The paravertebral soft tissues appear unremarkable. Impression: No acute abnormality of the thoracic spine. No significant spinal canal or neuroforaminal stenosis. Electronically Signed: Gary Shaw MD 03/06/2025 8:45 AM EDT Workstation ID: [id number] MRI Cervical Spine Without Contrast Result Date: 03/05/2025 MRI CERVICAL SPINE WO CONTRAST Date of Exam: 03/05/2025 10:10 PM EDT Indication: BLE Weakness. Comparison: CT 03/02/2025. Technique: Routine multiplanar/multisequence sequence images of the cervical spine were obtained without contrast administration. Findings: Spondylotic endplate changes are present, including with some associated marrow edema at C6-7. T1 marrow signal is otherwise preserved, without evidence of fracture or suspicious marrow replacing lesion. There is straightening of the usualcervical lordosis, without evidence of listhesis or subluxation. The cervical spinal cord demonstrates no focal areas of intramedullary signal abnormality. The paraspinal soft tissues demonstrate no acute or suspicious findings. Multilevel spondylosis change is present, with areas of involvement noted including C2-3, no significant spinal canal or neuroforaminal impingement. C3-4, disc osteophytecomplex and bilateral facet arthropathy. There is mild spinal canal and bilateral neuroforaminal roxana rowing, greater on the right. C4-5, disc osteophyte complex and bilateral facet arthropathy. There is mild spinal canal narrowing. There is mild to moderate bilateral neuroforaminal stenosis, fairly symmetric. C5-6, disc osteophyte complex and bilateral facet arthropathy. There is mild spinal canaland bilateral neuroforaminal narrowing. C6-7, disc osteophyte complex and bilateral facet arthropathy. There is mild spinal canal and bilateral neuroforaminal narrowing present. Impression: Multilevel cervical spondylosis is present, including some edematous spondylotic endplate changes at C6-7, potentially a source of acute axial neck pain. There is no evidence of associated high-grade spinal canal or neuroforaminal impingement. Electronically Signed: Prince Aly MD 03/05/2025 10:51 PM EDT Workstation ID: [id number] Bilateral Carotid Duplex Result Date: 03/04/2025 Right internal carotid artery demonstrates a less than 50% stenosis. Antegrade right vertebral flow. Left internal carotid artery demonstrates a less than 50% stenosis. Antegrade left vertebral flow.There is external carotid artery stenosis noted bilaterally MRI Lumbar Spine Without Contrast Result Date: 03/04/2025 MRI LUMBAR SPINE WO CONTRAST Date of Exam: 03/03/2025 7:32 PM EDT Indication: RLE pain and weakness,new loss bowel control. Comparison: None available. Technique: Routine multiplanar/multisequence sequence images of the lumbar spine were obtained without contrast administration. Findings: T1 marrowsignal is preserved, without evidence of fracture or suspicious marrow replacing lesion. Alignment is anatomic, without evidence of significant listhesis or subluxation. The conus medullaris and cauda equina nerve roots are satisfactory in appearance. The paraspinal soft tissues demonstrate no acute or suspicious findings. Multilevel spondylosis is present, with areas of involvement including L1-2, no significant spinal canal or neuroforaminal impingement. L2-3, no significant spinal canal or neuroforaminal impingement. L3-4, no significant spinal canal or neuroforaminal impingement. L4-5, small disc bulge in addition to a focal zone of hyperintensity/annular fissure seen dorsally. There isminimal spinal canal narrowing. The neural foramina remain patent. L5-S1, small circumferential disc bulge and bilateral facet arthropathy. There is mild spinal canal and bilateral neuroforaminal narrowing. Impression: Generally mild lumbar spondylosis is present as above, including a small annular fissure at L4-5, potentially a source of acute axial back pain. There is no evidence of associated high-grade spinal canal or neuroforaminal impingement. Electronically Signed: Prince Aly MD 03/04/2025 5:55 AM EDT Workstation ID: [id number] MRI Brain Without Contrast Result Date: 03/03/2025 MRI BRAIN WO CONTRAST Date of Exam: 03/03/2025 7:32 PM EDT Indication: Stroke, follow up right sidedweakness. Comparison: None available. Technique: Routine multiplanar/multisequence sequence images of the brain were obtained without contrast administration. Findings: There is no diffusion restriction to suggest acute infarct. There is no evidence of acute or chronic intracranial hemorrhage. No mass effect or midline shift. No abnormal extra-axial collections. Very mild periventricular and subcortical FLAIR signal changes are present. The major vascular flow voids appear intact. The basal ganglia, brainstem and cerebellum appear within normal limits. Calvarial and superficial soft tissue signal is within normal limits. Orbits appear unremarkable. The paranasal sinuses and the mastoid air cells appear well aerated. Midline structures are intact. Impression: 1.No evidence of hemorrhage, mass effect or midline shift. No evidence of recent or acute ischemia. 2.Very mild periventricular and subcortical FLAIR signal changes likely related to chronic microvascular ischemic change. Electronically Signed: Sloane Licea MD 03/03/2025 9:09 PM EDT Workstation ID: [id number] XR Outside Chest Result Date: 03/03/2025 This procedure was auto-finalized with no dictation required. CT Outside Chest Result Date: 03/03/2025 This procedure was auto-finalized with no dictation required. CT Outside Films Result Date: 03/03/2025 This procedure was auto-finalized with no dictation required. CT Outside Films Result Date: 03/03/2025 This procedure was auto-finalized with no dictation required. Results for orders placed during the hospital encounter of 03/03/25 Bilateral Carotid Duplex 03/04/2025 11:07 AM Interpretation Summary Right internal carotid artery demonstrates a less than 50% stenosis. Antegrade right vertebral flow. Left internal carotid artery demonstrates a less than 50% stenosis. Antegrade left vertebral flow. There is external carotid artery stenosis noted bilaterally Results for orders placed during the hospital encounter of 03/03/25 Bilateral Carotid Duplex 03/04/2025 11:07 AM Interpretation Summary Right internal carotid artery demonstrates a less than 50% stenosis. Antegrade right vertebral flow. Left internal carotid artery demonstrates a less than 50% stenosis. Antegrade left vertebral flow. There is external carotid artery stenosis noted bilaterally Plan for Follow-up of Pending Labs/Results: no pending results Discharge Details Discharge Medications PAUSE taking these medications Instructions Start Date doxazosin 4 MG tablet Wait to take this until your doctor or other care provider tells you to start again. Commonly known as: CARDURA 1 tablet, Daily sulfaSALAzine 500 MG EC tablet Wait to take this until your doctor or other care provider tells you to start again. Commonly known as: AZULFIDINE ENTABS 500 mg, Oral, Take As Directed, 1 tab qd for 3 days, 1 tab bid for 3 days, 2 tabs po bid thereafterfor arthritis after meals valsartan-hydrochlorothiazide 320-25 MG per tablet Wait to take this until your doctor or other care provider tells you to start again. Commonly known as: DIOVAN-HCT 1 tablet, Daily verapamil ER 240 MG 24 hr capsule Wait to take this until your doctor or other care provider tells you to start again. Commonly known as: VERELAN 1 capsule, Every 12 Hours Scheduled New Medications Instructions Start Date aspirin 81 MG chewable tablet 81 mg, Oral, Daily Start Date: March 09, 2025 atorvastatin 80 MG tablet Commonly known as: LIPITOR 80 mg, Oral, Nightly cyanocobalamin 1000 MCG/ML injection 1,000 mcg, Intramuscular, Daily Start Date: March 09, 2025 HYDROcodone-acetaminophen 5-325 MG per tablet Commonly known as: NORCO 1 tablet, Oral, Every 6 Hours PRN traMADol 50 MG tablet Commonly known as: ULTRAM 50 mg, Oral, Every 8 Hours PRN Continue These Medications Instructions Start Date albuterol sulfate HFA 108 (90 Base) MCG/ACT inhaler Commonly known as: PROVENTIL HFA;VENTOLIN HFA;PROAIR HFA 2 puffs, Daily apixaban 5 MG tablet tablet Commonly known as: ELIQUIS 5 mg, 2 Times Daily bumetanide 0.5 MG tablet Commonly known as: BUMEX 0.5 mg, Every Morning carvedilol 6.25 MG tablet Commonly known as: COREG TAKE 1 TABLET BY MOUTH TWICE DAILY MUST ADMINISTER WITH A MEAL/FOOD Vuirqshcltyim-Knwofntg-Ahtzcdy 25-5-1000 MG tablet sustained-release 24 hour 1 tablet, Daily MiraLax 17 GM/SCOOP powder Generic drug: polyethylene glycol 17 g, Daily naproxen sodium 220 MG tablet Commonly known as: ALEVE 220 mg, 2 Times Daily PRN potassium chloride 20 MEQ CR tablet Commonly known as: KLOR-CON M20 1 tablet, Daily predniSONE 1 MG tablet Commonly known as: DELTASONE 2 mg, Oral, Daily Stop These Medications pravastatin 40 MG tablet Commonly known as: PRAVACHOL No Known Allergies Discharge Disposition: Rehab Facility or Unit (DC - External)rehab Diet: Hospital: Diet Order Procedures Diet: Cardiac, Diabetic; Low Sodium (2g); Consistent Carbohydrate; Fluid Consistency: Thin (IDDSI 0) Standing Status: Standing Number of Occurrences: 1 Diets:: Cardiac Diets:: Diabetic Cardiac Diet:: Low Sodium (2g) Diabetic Diet:: Consistent Carbohydrate Fluid Consistency:: Thin (IDDSI 0) Activity: as tolerated Restrictions or Other Recommendations: none CODE STATUS: Code Status and Medical Interventions: CPR (Attempt to Resuscitate); Full Support Ordered at: 03/03/25 1687 Code Status (Patient has no pulse and is not breathing): CPR (Attempt to Resuscitate) Medical Interventions (Patient has pulse or is breathing): Full Support Level Of Support Discussed With: Patient Future Appointments Date Time Provider Department Center 05/22/2025 11:00 AM [facility] 05/22/2025 11:30 AM Chris Aponte APRN [facility] Allison Zaragoza MD 03/08/25 Time Spent on Discharge: I spent 45 minutes on this discharge activity which included: ppok-my-gltmnxonlbuzd with the patient, reviewing the data in the system, coordination of the care with the nursing staff as well as consultants, documentation, and entering orders. [id number] * Allison Zaragoza MD - 03/08/2025 12:39 PM EDT Images from the original note were not included. [facility] Medicine Services DISCHARGE SUMMARY Patient Name: Mack Bower : 1940 Date of Admission: 03/03/2025 3:18 PM Date of Discharge: 03/08/2025 Primary Care Physician: Shahid Guthrie MD Consults Date and Time Order Name Status Description 03/05/2025 11:00 AM Inpatient Neurology Consult General Completed 03/03/2025 3:01 PM Inpatient Neurology Consult Stroke Completed Hospital Course Presenting Problem: R sided weakness Active Hospital Problems Diagnosis POA Right sided weakness [R53.1] Yes Stenosis of left carotid artery [I65.22] Yes PAF (paroxysmal atrial fibrillation) [I48.0] Yes Primary hypertension [I10] Yes Chronic diastolic CHF (congestive heart failure) [I50.32] Yes Chronic anticoagulation [Z79.01] Not Applicable Type 2 diabetes mellitus with hyperglycemia, without long-term current use of insulin [E11.65] Yes 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 difficile diarrhea [A04.72] 03/08/2025 Yes Hospital Course: Mack Bower is a 84 y.o. male with PAF on Eliquis, HFpEF, hypertension, DM2, rheumatoid arthritis on sulfasalazine (new med since 01/2025), multiple myeloma transferred from outside hospital due to right sided weakness and possible ICA stenoses. Right sided weakness Left ICA stenosis - stroke neurology followed - MRI brain negative for ischemic event - bilateral carotid ultrasound less than 50% stenosis - continue asa 81 mg daily and eliquis 5 mg BID. Discontinued plavix. Stroke team followed - high intensity statin - target SBP 120-160, avoid hypotension - PT/OT -- IP rehab recommended -d/w neurology. Workup so far not very revealing, MRI did have abnormality at L4-L5 but likely not the explanation. B12 was low, repleting. EMG w peripheral neuropathy. Recommends pain control and PT, b12 supplementation. F/u w outpatient rheum PAF CAD - eliquis - verapamil/coreg held at admission, currently rate controlled - follows with Cardiology Dr Franks Diarrhea--resolved --initially concerns for c diff however more c/w adverse med affect. Diarrhea now resolved --d/w Dr Ok Richards, hold sulfaslazine in case diarrhea side effect of new med. Vanc dc'd HFpEF - bumex held at admission, resumed now DMII - A1c 6.6 HTN - verapamil, valsartan-HCTZ, doxazosin and coreg held at admission - BP currently at goal, add back meds stepwise as needed. Continue titrating outpatient as well. Currently well controlled on current regimen Rheumatoid Arthritis - resumed home prednisone -holding sulfasalazine as above. 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 - data deficient Discharge Follow Up Recommendations for outpatient labs/diagnostics: PCP rheum Day of Discharge HPI: No new overnight issues, was able to have a BM Review of Systems Gen- No fevers, chills CV- No chest pain, palpitations Resp- No cough, dyspnea GI- No N/V/D, abd pain Vital Signs: Temp: [98 ??F (36.7 ??C)-98.7 ??F (37.1 ??C)] 98.3 ??F (36.8 ??C) Heart Rate: [73-95] 89 Resp: [16-20] 16 BP: (126-149)/(60-80) 149/60 Flow (L/min) (Oxygen Therapy): [2-3] 2 Physical Exam: Constitutional: No acute distress, awake, alert HENT: NCAT, mucous membranes moist Respiratory: Clear to auscultation bilaterally, respiratory effort normal Cardiovascular: RRR, no murmurs, rubs, or gallops Gastrointestinal: Positive bowel sounds, soft, nontender, nondistended Musculoskeletal: No bilateral ankle edema Psychiatric: Appropriate affect, cooperative Neurologic: Oriented x 3, bilateral lower extremity flexion and extension significantly weaker. Plantar and dorsiflexion 5/5 Skin: diffuse skin lesions Pertinent and/or Most Recent Results LAB RESULTS: Lab 03/07/25 0802 03/06/25 0838 03/05/25 0803/04/25 0842 WBC 10.85* 11.52* 10.64 11.08* HEMOGLOBIN 11.9* 12.3* 12.2* 12.6* HEMATOCRIT 36.7* 37.5 37.1* 39.3 PLATELETS 340 299 309 222 NEUTROS ABS 8.24* 8.36* -- 8.15* IMMATURE GRANS (ABS) 0.06* 0.06* -- 0.07* LYMPHS ABS 0.93 1.28 -- 1.10 MONOS ABS 1.14* 1.29* -- 1.15* EOS ABS 0.43* 0.47* -- 0.55* MCV 93.6 93.3 94.6 96.8 SED RATE -- -- 78* -- CRP -- -- 9.14* -- Lab 03/07/25 0802 03/06/25 0953 03/05/25 0811 03/04/25 0842 03/03/25 2222 SODIUM 135* 133* 139 137 -- POTASSIUM 4.2 4.5 4.0 3.7 3.8 CHLORIDE 98 99 102 101 -- CO2 27.0 27.0 29.0 25.0 -- ANION GAP 10.0 7.0 8.0 11.0 -- BUN 12.6 11.6 13.5 16.7 -- CREATININE 0.56* 0.63* 0.69* 0.77 -- EGFR 98.4 95.0 92.4 89.4 -- GLUCOSE 135* 177* 129* 130* -- CALCIUM 8.3* 8.0* 8.4* 8.1* -- MAGNESIUM -- -- -- 2.2 2.2 PHOSPHORUS -- -- -- 2.3* -- HEMOGLOBIN A1C -- -- -- 6.62* -- Lab 03/04/25 0842 TOTAL PROTEIN 6.8 ALBUMIN 3.5 GLOBULIN 3.3 ALT (SGPT) 10 AST (SGOT) 13 BILIRUBIN 0.3 ALK PHOS 62 Lab 03/04/25 0842 CHOLESTEROL 142 LDL CHOL 89 HDL CHOL 34* TRIGLYCERIDES 103 Lab 03/05/25 1459 FOLATE 9.87 VITAMIN B 12 289 Brief Urine Lab Results None Microbiology Results (last 10 days) No results found for the last 240 hours. EMG & Nerve Conduction Test Result Date: 03/07/2025 Table formatting from the original result was not included. Images from the original result were not included. Indication: Bilateral leg weakness, greater on right, consideration of radiculopathy, peripheral neuropathy Clinical: 84 y.o.male with a history of relatively acute onset of bilateral lower extremity weakness beginning this past Wednesday roughly 5 days ago. He reports variable degrees of pain in the hip and knee on the right. His muscle bulk appears intact. His muscle strength appears good but examination was extremely limited due to pain with any significant movement of the ankle, knee or hip. He has diminished distal sensation to pinprick and vibration. His reflexes are reduced at the knee and ankle on the right. Radiculopathy and neuropathy are clinical considerations. NCS/EMG TECHNICAL DATA: All studies are performed at a skin temperature of 34??C or greater. Distal sensory latencies are calculated to waveform peak. Sensory amplitudes are measured peak to peak Distal motor l atencies are calculated to waveform onset. Motor amplitudes are calculated baseline to peak Nerve Conduction Studies Anti Sensory Summary Table Stim Site NR Peak (ms) Norm Peak (ms) P-T Amp (??V) Norm P-T Amp Site1 Site2 Delta-P (ms) Dist (cm) César (m/s) Norm César (m/s) Right Sup Fibular Anti Sensory(Ant Lat Mall) 14 cm NR <4.4 >5.0 14 cm Ant Lat Mall 14.0 >32 Ortho Sensory Summary Table Stim Site NR Peak (ms) Norm Peak (ms) P-T Amp (??V) Norm P-T Amp Site1 Site2 Delta-P (ms) Dist (cm) César (m/s) Norm César (m/s) Right Median Ortho Sensory (Wrist) 2nd Digit 2.3 7.3 2nd Digit Wrist 2.3 8.0 35 Right Ulnar Ortho Sensory (Wrist) 5th Digit 1.5 7.6 5th Digit Wrist 1.5 8.0 53 Motor Summary Table Stim Site NR Onset (ms) Norm Onset (ms) O-P Amp (mV) Norm O-P Amp Site1 Site2 Delta-0 (ms) Dist ( cm) César (m/s) Norm César (m/s) Right Fibular Motor (Ext Dig Brev) Ankle 4.3 <6.1 2.2 >2.5 B FibAnkle 9.4 36.0 38 >40 B Fib 13.7 1.9 Poplt B Fib 1.3 10.0 77 >40 Poplt 15.0 1.7 Right Tibial Motor (Abd Valerio Brev) Ankle 3.3 <6.1 0.3 >3.0 Knee Ankle 0.0 >40 Knee NR F Wave Studies NR F-Lat (ms) Lat Norm (ms) L-R F-Lat (ms) L-R Lat Norm M-Lat (ms) FLat-MLat (ms) Right Fibular (Mrkrs)(EDB) 73.14 <60 <5.1 4.00 69.14 Right Tibial (Mrkrs) (Abd Hallucis) 67.33 <61 <5.7 5.3362.00 H Reflex Studies NR H-Lat (ms) L-R H-Lat (ms) L-R Lat Norm Left Tibial (Mrkrs) (Gastroc) NR <2.0 Right Tibial (Mrkrs) (Gastroc) NR <2.0 EMG Side Muscle Nerve Root Ins Act Fibs Psw Amp DurPoly Recrt Int Pat Comment Right AntTibialis Dp Br Fibular L4-5 Nml Nml Nml Nml Nml 0 Nml Nml RightFibularis Long Sup Br Fibular L5-S1 Nml Nml Nml Nml Nml 0 Nml Nml Right PostTibialis Tibial L5, S1 Nml Nml Nml Nml Nml 0 Nml Nml Right VastusLat Femoral L2-4 Nml Nml Nml Nml Nml 0 Nml Nml Right Add Ma gnus Obturator, Sciat L2-4 Nml Nml Nml Nml Nml 0 Nml Nml Waveforms: FINDINGS: Nerve Conduction Studies: No responses seen following stimulation of the right superficial peroneal sensory nerve Amplitude of the right peroneal motor nerve is reduced to 2.2 mV and velocity is slowed at 38 m/s between knee and ankle Amplitude of the right posterior tibial motor nerve is reduced at 0.3 mV Motor F wave latency of the right posterior tibial motor nerve and right peroneal motor nerve are prolonged H-reflexes are not reliably seen on either side Median sensory latency on the right is minimally prolonged at 2.3 ms and amplitude is reduced Ulnar sensory latency on the right is normal at 1.5 ms and amplitude is reduced Electromyogram: Needle examination of the right leg is unremarkable. The lumbar paraspinous muscles could not be interrogated due to difficulty with patient repositioning Sensorimotor neuropathy, axonal, mild-moderate No electrophysiologic evidence for radiculopathy or plexopathy is seen in the right leg Note-this study is performed relatively early on Following onsetof weakness. Should neurological symptoms persist or worsen, a repeat study in the future may be ofvalue This report is transcribed using the [employer] dictation system. MRI Thoracic Spine With & Without Contrast Result Date: 03/06/2025 MRI THORACIC SPINE W WO CONTRAST Date of Exam: 03/05/2025 10:46 PM EDT Indication: Bilateral lower extremity weakness and pain. Comparison: None available. Technique: Routine multiplanar/multisequencesequence images of the thoracic spine were obtained before and after the uneventful administration of Multihance. Findings: There is a round, microlobulated T1/T2/STIR hyperintense lesion of the T8 vertebral body compatible with hemangioma. Otherwise unremarkable bone marrow signal intensity. No evidence of fracture or loss of vertebral body height. No bony edema. There is normal spinal alignment. The intervertebral disc spaces appear grossly preserved without significant loss of intervertebraldisc height or advanced degenerative disc disease. There is small right-sided ligamentum flavum hypertrophy at T11-T12 (series 10 image 10). No conspicuous disc bulge or disc protrusion. Heterogeneous CSF flow voids are seen along the dorsal cord. No significant spinal canal or neuroforaminal stenosis. There is normal morphology and signal intensity of the imaged spinal cord. The conus terminatesat the level of the inferior endplate of L1. The paravertebral soft tissues appear unremarkable. Noabnormal bony or soft tissue enhancement on the postcontrast images. No pericardial or pleural effusion. Multiple right close partial visualization of bilateral renal cortical cysts. The paravertebral soft tissues appear unremarkable. Impression: No acute abnormality of the thoracic spine. No significant spinal canal or neuroforaminal stenosis. Electronically Signed: Gary Shaw MD 03/06/2025 8:45 AM EDT Workstation ID: [id number] MRI Cervical Spine Without Contrast Result Date: 03/05/2025 MRI CERVICAL SPINE WO CONTRAST Date of Exam: 03/05/2025 10:10 PM EDT Indication: BLE Weakness. Comparison: CT 03/02/2025. Technique: Routine multiplanar/multisequence sequence images of the cervical spine were obtained without contrast administration. Findings: Spondylotic endplate changes are present, including with some associated marrow edema at C6-7. T1 marrow signal is otherwise preserved, without evidence of fracture or suspicious marrow replacing lesion. There is straightening of the usualcervical lordosis, without evidence of listhesis or subluxation. The cervical spinal cord demonstrates no focal areas of intramedullary signal abnormality. The paraspinal soft tissues demonstrate no acute or suspicious findings. Multilevel spondylosis change is present, with areas of involvement noted including C2-3, no significant spinal canal or neuroforaminal impingement. C3-4, disc osteophytecomplex and bilateral facet arthropathy. There is mild spinal canal and bilateral neuroforaminal roxana rowing, greater on the right. C4-5, disc osteophyte complex and bilateral facet arthropathy. There is mild spinal canal narrowing. There is mild to moderate bilateral neuroforaminal stenosis, fairly symmetric. C5-6, disc osteophyte complex and bilateral facet arthropathy. There is mild spinal [place] bilateral neuroforaminal narrowing. C6-7, disc osteophyte complex and bilateral facet arthropathy. There is mild spinal canal and bilateral neuroforaminal narrowing present. Impression: Multilevel cervical spondylosis is present, including some edematous spondylotic endplate changes at C6-7, potentially a source of acute axial neck pain. There is no evidence of associated high-grade spinal canal or neuroforaminal impingement. Electronically Signed: Prince Aly MD 03/05/2025 10:51 PM EDT Workstation ID: [id number] Bilateral Carotid Duplex Result Date: 03/04/2025 Right internal carotid artery demonstrates a less than 50% stenosis. Antegrade right vertebral flow. Left internal carotid artery demonstrates a less than 50% stenosis. Antegrade left vertebral flow.There is external carotid artery stenosis noted bilaterally MRI Lumbar Spine Without Contrast Result Date: 03/04/2025 MRI LUMBAR SPINE WO CONTRAST Date of Exam: 03/03/2025 7:32 PM EDT Indication: RLE pain and weakness,new loss bowel control. Comparison: None available. Technique: Routine multiplanar/multisequence sequence images of the lumbar spine were obtained without contrast administration. Findings: T1 marrowsignal is preserved, without evidence of fracture or suspicious marrow replacing lesion. Alignment is anatomic, without evidence of significant listhesis or subluxation. The conus medullaris and cauda equina nerve roots are satisfactory in appearance. The paraspinal soft tissues demonstrate no acute or suspicious findings. Multilevel spondylosis is present, with areas of involvement including L1-2, no significant spinal canal or neuroforaminal impingement. L2-3, no significant spinal canal or neuroforaminal impingement. L3-4, no significant spinal canal or neuroforaminal impingement. L4-5, small disc bulge in addition to a focal zone of hyperintensity/annular fissure seen dorsally. There isminimal spinal canal narrowing. The neural foramina remain patent. L5-S1, small circumferential disc bulge and bilateral facet arthropathy. There is mild spinal canal and bilateral neuroforaminal narrowing. Impression: Generally mild lumbar spondylosis is present as above, including a small annular fissure at L4-5, potentially a source of acute axial back pain. There is no evidence of associated high-grade spinal canal or neuroforaminal impingement. Electronically Signed: Prince Aly MD 03/04/2025 5:55 AM EDT Workstation ID: [id number] MRI Brain Without Contrast Result Date: 03/03/2025 MRI BRAIN WO CONTRAST Date of Exam: 03/03/2025 7:32 PM EDT Indication: Stroke, follow up right sidedweakness. Comparison: None available. Technique: Routine multiplanar/multisequence sequence images of the brain were obtained without contrast administration. Findings: There is no diffusion restriction to suggest acute infarct. There is no evidence of acute or chronic intracranial hemorrhage. No mass effect or midline shift. No abnormal extra-axial collections. Very mild periventricular and subcortical FLAIR signal changes are present. The major vascular flow voids appear intact. The basal ganglia, brainstem and cerebellum appear within normal limits. Calvarial and superficial soft tissue signal is within normal limits. Orbits appear unremarkable. The paranasal sinuses and the mastoid air cells appear well aerated. Midline structures are intact. Impression: 1.No evidence of hemorrhage, mass effect or midline shift. No evidence of recent or acute ischemia. 2.Very mild periventricular and subcortical FLAIR signal changes likely related to chronic microvascular ischemic change. Electronically Signed: Sloane Licea MD 03/03/2025 9:09 PM EDT Workstation ID: [id number] XR Outside Chest Result Date: 03/03/2025 This procedure was auto-finalized with no dictation required. CT Outside Chest Result Date: 03/03/2025 This procedure was auto-finalized with no dictation required. CT Outside Films Result Date: 03/03/2025 This procedure was auto-finalized with no dictation required. CT Outside Films Result Date: 03/03/2025 This procedure was auto-finalized with no dictation required. Results for orders placed during the hospital encounter of 03/03/25 Bilateral Carotid Duplex 03/04/2025 11:07 AM Interpretation Summary Right internal carotid artery demonstrates a less than 50% stenosis. Antegrade right vertebral flow. Left internal carotid artery demonstrates a less than 50% stenosis. Antegrade left vertebral flow. There is external carotid artery stenosis noted bilaterally Results for orders placed during the hospital encounter of 03/03/25 Bilateral Carotid Duplex 03/04/2025 11:07 AM Interpretation Summary Right internal carotid artery demonstrates a less than 50% stenosis. Antegrade right vertebral flow. Left internal carotid artery demonstrates a less than 50% stenosis. Antegrade left vertebral flow. There is external carotid artery stenosis noted bilaterally Plan for Follow-up of Pending Labs/Results: no pending results Discharge Details Discharge Medications PAUSE taking these medications Instructions Start Date doxazosin 4 MG tablet Wait to take this until your doctor or other care provider tells you to start again. Commonly known as: CARDURA 1 tablet, Daily sulfaSALAzine 500 MG EC tablet Wait to take this until your doctor or other care provider tells you to start again. Commonly known as: AZULFIDINE ENTABS 500 mg, Oral, Take As Directed, 1 tab qd for 3 days, 1 tab bid for 3 days, 2 tabs po bid thereafterfor arthritis after meals valsartan-hydrochlorothiazide 320-25 MG per tablet Wait to take this until your doctor or other care provider tells you to start again. Commonly known as: DIOVAN-HCT 1 tablet, Daily verapamil ER 240 MG 24 hr capsule Wait to take this until your doctor or other care provider tells you to start again. Commonly known as: VERELAN 1 capsule, Every 12 Hours Scheduled New Medications Instructions Start Date aspirin 81 MG chewable tablet 81 mg, Oral, Daily Start Date: March 09, 2025 atorvastatin 80 MG tablet Commonly known as: LIPITOR 80 mg, Oral, Nightly cyanocobalamin 1000 MCG/ML injection 1,000 mcg, Intramuscular, Daily Start Date: March 09, 2025 HYDROcodone-acetaminophen 5-325 MG per tablet Commonly known as: NORCO 1 tablet, Oral, Every 6 Hours PRN traMADol 50 MG tablet Commonly known as: ULTRAM 50 mg, Oral, Every 8 Hours PRN Continue These Medications Instructions Start Date albuterol sulfate HFA 108 (90 Base) MCG/ACT inhaler Commonly known as: PROVENTIL HFA;VENTOLIN HFA;PROAIR HFA 2 puffs, Daily apixaban 5 MG tablet tablet Commonly known as: ELIQUIS 5 mg, 2 Times Daily bumetanide 0.5 MG tablet Commonly known as: BUMEX 0.5 mg, Every Morning carvedilol 6.25 MG tablet Commonly known as: COREG TAKE 1 TABLET BY MOUTH TWICE DAILY MUST ADMINISTER WITH A MEAL/FOOD Uykesoovtybnr-Apdaqkag-Phzvlzp 25-5-1000 MG tablet sustained-release 24 hour 1 tablet, Daily MiraLax 17 GM/SCOOP powder Generic drug: polyethylene glycol 17 g, Daily naproxen sodium 220 MG tablet Commonly known as: ALEVE 220 mg, 2 Times Daily PRN potassium chloride 20 MEQ CR tablet Commonly known as: KLOR-CON M20 1 tablet, Daily predniSONE 1 MG tablet Commonly known as: DELTASONE 2 mg, Oral, Daily Stop These Medications pravastatin 40 MG tablet Commonly known as: PRAVACHOL No Known Allergies Discharge Disposition: Rehab Facility or Unit (DC - External)rehab Diet: Hospital: Diet Order Procedures Diet: Cardiac, Diabetic; Low Sodium (2g); Consistent Carbohydrate; Fluid Consistency: Thin (IDDSI 0) Standing Status: Standing Number of Occurrences: 1 Diets:: Cardiac Diets:: Diabetic Cardiac Diet:: Low Sodium (2g) Diabetic Diet:: Consistent Carbohydrate Fluid Consistency:: Thin (IDDSI 0) Activity: as tolerated Restrictions or Other Recommendations: none CODE STATUS: Code Status and Medical Interventions: CPR (Attempt to Resuscitate); Full Support Ordered at: 03/03/25 1553 Code Status (Patient has no pulse and is not breathing): CPR (Attempt to Resuscitate) Medical Interventions (Patient has pulse or is breathing): Full Support Level Of Support Discussed With: Patient Future Appointments Date Time Provider Department Center 05/22/2025 11:00 AM [facility] 05/22/2025 11:30 AM Chris Aponte APRN [facility] Allison Zaragoza MD 03/08/25 Time Spent on Discharge: I spent 45 minutes on this discharge activity which included: skth-ul-jzlzsptifthhg with the patient, reviewing the data in the system, coordination of the care with the nursing staff as well as consultants, documentation, and entering orders. documented in this encounter Medications at Time of Discharge albuterol sulfate HFA 108 (90 Base) MCG/ACT inhaler Inhale 2 puffs Daily. 10/14/2024 apixaban (ELIQUIS) 5 MG tablet tablet Take 1 tablet by mouth 2 (Two) Times a Day. aspirin 81 MG chewable tablet Chew 1 tablet Daily. 90 tablet 03/09/2025 atorvastatin (LIPITOR) 80 MG tablet Take 1 tablet by mouth Every Night. 90 tablet 03/08/2025 bumetanide (BUMEX) 0.5 MG tablet Take 1 tablet by mouth Every Morning. 12/05/2023 carvedilol (COREG) 6.25 MG tablet TAKE 1 TABLET BY MOUTH TWICE DAILY MUST ADMINISTER WITH A MEAL/FOOD 04/16/2024 doxazosin (CARDURA) 4 MG tablet Take 1 tablet by mouth Daily. 04/17/2024 Empagliflozin-Ayla aglip-Metform 25-5-1000 MG tablet sustained-release 24 hour Take 1 tablet by mouth Daily. naproxen sodium (ALEVE) 220 MG tablet Take 1 tablet by mouth 2 (Two) Times a Day As Needed for Mild Pain. polyethylene glycol (MiraLax) 17 GM/SCOOP powder Take 17 g by mouth Daily. potassium chloride (KLOR-CON M20) 20 MEQ CR tablet Take 1 tablet by mouth Daily. 12/10/2023 predniSONE (DELTASONE) 1 MG tablet Take 2 tablets by mouth Daily. 180 tablet 1 01/16/2025 sulfaSALAzine (AZULFIDINE ENTABS) 500 MG EC tablet Take 1 tablet by mouth Take As Directed. 1 tab qd for 3 days, 1 tab bid for 3 days, 2 tabs po bid thereafter for arthritis after meals 120 tablet 3 01/16/2025 valsartan-hydroch lorothiazide (DIOVAN-HCT) 320-25 MG per tablet Take 1 tablet by mouth Daily. 12/16/2023 verapamil ER (VERELAN) 240 MG 24 hr capsule Take 1 capsule by mouth Every 12 (Twelve) Hours. 04/10/2024 cyanocobalamin 1000 MCG/ML injection Inject 1 mL into the appropriate muscle as directed by prescriber Daily for 5 doses. 5 mL 03/09/2025 5 HYDROcodone-aceta minophen (NORCO) 5-325 MG per tabletIndications :Rheumatoid arthritis, involving unspecified site, unspecified whether rheumatoid factor present Take 1 tablet by mouth Every 6 (Six) Hours As Needed for Moderate Pain for up to 3 days. 12 tablet 03/08/2025 5 traMADol (ULTRAM) 50 MG tabletIndications :Rheumatoid arthritis, involving unspecified site, unspecified whether rheumatoid factor present Take 1 tablet by mouth Every 8 (Eight) Hours As Needed for Moderate Pain for up to 4 days. 12 tablet 03/08/2025 5 documented as of this encounter Progress Notes * Torsten Matias DO - 03/07/2025 9:34 AM EDT [facility] Neurology Progress Note Patient Name: Mack Bower : 1940 Primary Care Physician: Shahid Guthrie MD Date of admission: 03/03/2025 Subjective Reason for consult: Bilateral lower extremity weakness. Has gone from walking daily to inability tolift both legs off bed. Stroke w/u neg, mri lumbar non revealing. Thoracic pending. May need EMG? History of Present Illness Able to stand and get into the chair today with assistance from OT. Review of Systems General: Negative for fever, nausea, or vomiting. Neurological: Negative for headache, positive for pain and weakness. Objective Vitals: Temp: [97.6 ??F (36.4 ??C)-99.6 ??F (37.6 ??C)] 99.6 ??F (37.6 ??C) Heart Rate: [82-96] 92 Resp: [18-20] 18 BP: (123-156)/(66-81) 137/74 Flow (L/min) (Oxygen Therapy): [3] 3 Neurologic Exam Mental status/Cognition: awake and alert Speech/language: fluent; follows commands Cranial nerves: tracks examiner. Face appears symmetric. No dysarthria. Motor: No drift in upper extremities. Able to raise left leg off chair against resistance, 5/5. Strong activation in right quad, minimally raising leg off the bed. 5/5 with bilateral DF, PF Sensation: intact to light touch throughout Current Medications Current Facility-Administered Medications: acetaminophen (TYLENOL) tablet 650 mg, 650 mg, Oral, Q4H PRN, Mack Prince, , 650 mg at 03/05/25 0843 aluminum-magnesium hydroxide-simethicone (MAALOX MAX) 400-400-40 MG/5ML suspension 15 mL, 15 mL, Oral, Q6H PRN, Mack Prince, DO apixaban (ELIQUIS) tablet 5 mg, 5 mg, Oral, Q12H, Mer Dove, FIRE PREVENTION INSPECTOR, 5 mg at 03/07/25 0808 aspirin chewable tablet 81 mg, 81 mg, Oral, Daily, 81 mg at 03/07/25 0808 OR aspirin suppository 300 mg, 300 mg, Rectal, Daily, Mer Dove APRN atorvastatin (LIPITOR) tablet 80 mg, 80 mg, Oral, Nightly, Mer Dove APRN, 80 mg at 03/06/252031 bumetanide (BUMEX) tablet 1 mg, 1 mg, Oral, QAM, Allison Zaragoza MD, 1 mg at 03/07/25807 Calcium Replacement - Follow Nurse / BPA Driven Protocol, , Not Applicable, PRN, Mcak Prince DO carvedilol (COREG) tablet 6.25 mg, 6.25 mg, Oral, BID With Meals, Allison Zaragoza MD, 6.25 mg at 03/07/25807 cyanocobalamin injection 1,000 mcg, 1,000 mcg, Intramuscular, Daily, Torsten Matias DO, 1,000 mcg at 03/07/25807 HYDROcodone-acetaminophen (NORCO) 5-325 MG per tablet 1 tablet, 1 tablet, Oral, Q6H PRN, Allison Zaragoza MD, 1 tablet at 03/07/25807 Magnesium Standard Dose Replacement - Follow Nurse / BPA Driven Protocol, , Not Applicable, PRNiki Escudero Richard M, DO melatonin tablet 5 mg, 5 mg, Oral, Nightly, Mack Prince DO, 5 mg at 03/06/252032 ondansetron (ZOFRAN) injection 4 mg, 4 mg, Intravenous, Q6H PRN, Mack Prince DO Pharmacy Consult, , Not Applicable, Continuous PRNNiki Richard M, DO Phosphorus Replacement - Follow Nurse / BPA Driven Protocol, , Not Applicable, PRNiki Escudero RichardM, DO Potassium Replacement - Follow Nurse / BPA Driven Protocol, , Not Applicable, PRNiki Escudero Richard M, DO predniSONE (DELTASONE) tablet 2 mg, 2 mg, Oral, Daily, Willy Santoyo MD, 2 mg at 03/07/25807 sodium chloride 0.9 % flush 10 mL, 10 mL, Intravenous, PRN, Mer Dove APRN sodium chloride 0.9 % infusion 40 mL, 40 mL, Intravenous, PRN, Dove, Mer C, FIRE PREVENTION INSPECTOR [Held by provider] sulfaSALAzine (AZULFIDINE) tablet 1,000 mg, 1,000 mg, Oral, Q12H, Willy Santoyo MD, 1,000 mg at 03/05/25 0843 traMADol (ULTRAM) tablet 50 mg, 50 mg, Oral, Q8H PRN, Allison Zaragoza MD, 50 mg at 03/06/25 0553 Laboratory Results: Lab Results Component Value Date GLUCOSE 135 (H) 03/07/2025 CALCIUM 8.3 (L) 03/07/2025 NA 135 (L) 03/07/2025 K 4.2 03/07/2025 CO2 27.0 03/07/2025 CL 98 03/07/2025 BUN 12.6 03/07/2025 CREATININE 0.56 (L) 03/07/2025 BCR 22.5 03/07/2025 ANIONGAP 10.0 03/07/2025 Lab Results Component Value Date WBC 10.85 (H) 03/07/2025 HGB 11.9 (L) 03/07/2025 HCT 36.7 (L) 03/07/2025 MCV 93.6 03/07/2025 PLT 340 03/07/2025 Lab Results Component Value Date CHOL 142 03/04/2025 Lab Results Component Value Date HDL 34 (L) 03/04/2025 Lab Results Component Value Date LDL 89 03/04/2025 Lab Results Component Value Date HGBA1C 6.62 (H) 03/04/2025 Lab Results Component Value Date FOLATE 9.87 03/05/2025 Lab Results Component Value Date [id number] 289 03/05/2025 Lab Results Component Value Date CRP 9.14 (H) 03/05/2025 CK 101 Sed rate 78 Images/Procedures MRI lumbar without contrast 03/03/2025 Mild lumbar spondylosis, small annular fissure at L4-5 MRI brain without contrast 03/03/2025 Mild periventricular and subcortical FLAIR changes likely related to chronic vascular ischemic change MRI cervical spine without contrast 03/05/2025 Multilevel cervical spondylosis including some edematous spondylitic endplate changes at C6-7, no associated high-grade spinal canal or neuroforaminal impingement MRI thoracic spine without contrast 03/05/2025 No significant spinal canal or neuroforaminal stenosis EMG/NCS 03/07/2025 Mild to moderate axonal sensorimotor neuropathy. Assessment / Plan Active Hospital Problems: Low B12 Right greater than left leg weakness Rheumatoid arthritis Peripheral neuropathy Brief Patient Summary: Mack Bower is a 84 y.o. male with history of atrial fibrillation, type 2 diabetes, RA, CHF, hypertension, multiple myeloma who presented to [facility] on 03/02 with right leg weakness and difficulty ambulation. He was transferred to [facility] on 03/03 for further workup. Initially seen by the stroke team, where CT head was unremarkable, CTA brain and neck showed 80% stenosis in leftICA and high-grade stenosis in right ICA. MRI brain negative for acute stroke. MRI lumbar spine showed a small annular fissure at L4-L5. Improvement of weakness from yesterday, which appears to be significantly pain limited. On exam he is able to raise right leg a few inches off the bed but complains of significant pain. Able to raiseleft leg off the bed against resistance. Sensory exam is notable for absence of proprioception and vibration, which is consistent with his EMG findings of a peripheral neuropathy. Suspect his weakness is multifactorial, and due to a combination of low B12 with peripheral neuropathy, L4-5 and L5-S1 disc bulges and neuroforaminal narrowing, and significant pain. Recommend ongoing pain control and B12 supplementation. There may be a rheumatologic piece contributing, patient follow-up with his outpatient meter setter for further recommendations. PT and OT can help with rehaband safe ambulation. Plan: - Give B12 1000 mcg daily for 7 days followed by once weekly for 4 weeks then once monthly - Pain control per primary - PT/OT General Neurology will see upon request. Please reach out with any questions I have discussed the above with the patient, family, bedside RN, hospitalist Time spent with patient: 45 minutes in [id number] evaluation and management of the patient. Torsten Matias DO, MS * Allison Zaragoza MD - 03/07/2025 4:42 AM EDT Images from the original note were not included. [facility] Medicine Services PROGRESS NOTE Patient Name: Mack Bower : 1940 Date of Admission: 03/03/2025 Primary Care Physician: Shahid Guthrie MD Subjective Subjective CC: weakness HPI: No overnight issues, pain controlled while not moving Objective Objective Vital Signs: Temp: [97.6 ??F (36.4 ??C)-99 ??F (37.2 ??C)] 98.7 ??F (37.1 ??C) Heart Rate: [82-96] 96 Resp: [18-20] 20 BP: (123-156)/(66-77) 156/74 Flow (L/min) (Oxygen Therapy): [3] 3 Physical Exam: Constitutional: No acute distress, awake, alert HENT: NCAT, mucous membranes moist Respiratory: Clear to auscultation bilaterally, respiratory effort normal Cardiovascular: RRR, no murmurs, rubs, or gallops Gastrointestinal: Positive bowel sounds, soft, nontender, nondistended Musculoskeletal: No bilateral ankle edema Psychiatric: Appropriate affect, cooperative Neurologic: Oriented x 3, bilateral lower extremity flexion and extension significantly weaker. Plantar and dorsiflexion 5/5 Skin: diffuse skin lesions No significant change from 03/06 Results Reviewed: LAB RESULTS: Lab 03/06/25 0838 03/05/25 0811 03/04/25 0842 WBC 11.52* 10.64 11.08* HEMOGLOBIN 12.3* 12.2* 12.6* HEMATOCRIT 37.5 37.1* 39.3 PLATELETS 299 309 222 NEUTROS ABS 8.36* -- 8.15* IMMATURE GRANS (ABS) 0.06* -- 0.07* LYMPHS ABS 1.28 -- 1.10 MONOS ABS 1.29* -- 1.15* EOS ABS 0.47* -- 0.55* MCV 93.3 94.6 96.8 SED RATE -- 78* -- CRP -- 9.14* -- Lab 03/06/25 0953 03/05/25 0811 03/04/25 0842 03/03/25 2222 SODIUM 133* 139 137 -- POTASSIUM 4.5 4.0 3.7 3.8 CHLORIDE 99 102 101 -- CO2 27.0 29.0 25.0 -- ANION GAP 7.0 8.0 11.0 -- BUN 11.6 13.5 16.7 -- CREATININE 0.63* 0.69* 0.77 -- EGFR 95.0 92.4 89.4 -- GLUCOSE 177* 129* 130* -- CALCIUM 8.0* 8.4* 8.1* -- MAGNESIUM -- -- 2.2 2.2 PHOSPHORUS -- -- 2.3* -- HEMOGLOBIN A1C -- -- 6.62* -- Lab 03/04/25 0842 TOTAL PROTEIN 6.8 ALBUMIN 3.5 GLOBULIN 3.3 ALT (SGPT) 10 AST (SGOT) 13 BILIRUBIN 0.3 ALK PHOS 62 Lab 03/04/25 0842 CHOLESTEROL 142 LDL CHOL 89 HDL CHOL 34* TRIGLYCERIDES 103 Lab 03/05/25 1459 FOLATE 9.87 VITAMIN B 12 289 Brief Urine Lab Results None Microbiology Results Abnormal None MRI Thoracic Spine With & Without Contrast Result Date: 03/06/2025 MRI THORACIC SPINE W WO CONTRAST Date of Exam: 03/05/2025 10:46 PM EDT Indication: Bilateral lower extremity weakness and pain. Comparison: None available. Technique: Routine multiplanar/multisequencesequence images of the thoracic spine were obtained before and after the uneventful administration of Multihance. Findings: There is a round, microlobulated T1/T2/STIR hyperintense lesion of the T8 vertebral body compatible with hemangioma. Otherwise unremarkable bone marrow signal intensity. No evidence of fracture or loss of vertebral body height. No bony edema. There is normal spinal alignment. The intervertebral disc spaces appear grossly preserved without significant loss of intervertebraldisc height or advanced degenerative disc disease. There is small right-sided ligamentum flavum hypertrophy at T11-T12 (series 10 image 10). No conspicuous disc bulge or disc protrusion. Heterogeneous CSF flow voids are seen along the dorsal cord. No significant spinal canal or neuroforaminal stenosis. There is normal morphology and signal intensity of the imaged spinal cord. The conus terminatesat the level of the inferior endplate of L1. The paravertebral soft tissues appear unremarkable. Noabnormal bony or soft tissue enhancement on the postcontrast images. No pericardial or pleural effusion. Multiple right close partial visualization of bilateral renal cortical cysts. The paravertebral soft tissues appear unremarkable. Impression: Impression: No acute abnormality of the thoracic spine. No significant spinal canal or neuroforaminal stenosis. Electronically Signed: Gary Shaw MD 03/06/2025 8:45 AM EDT WorkstationID: [id number] MRI Cervical Spine Without Contrast Result Date: 03/05/2025 MRI CERVICAL SPINE WO CONTRAST Date of Exam: 03/05/2025 10:10 PM EDT Indication: BLE Weakness. Comparison: CT 03/02/2025. Technique: Routine multiplanar/multisequence sequence images of the cervical spine were obtained without contrast administration. Findings: Spondylotic endplate changes are present, including with some associated marrow edema at C6-7. T1 marrow signal is otherwise preserved, without evidence of fracture or suspicious marrow replacing lesion. There is straightening of the usualcervical lordosis, without evidence of listhesis or subluxation. The cervical spinal cord demonstrates no focal areas of intramedullary signal abnormality. The paraspinal soft tissues demonstrate no acute or suspicious findings. Multilevel spondylosis change is present, with areas of involvement noted including C2-3, no significant spinal canal or neuroforaminal impingement. C3-4, disc osteophytecomplex and bilateral facet arthropathy. There is mild spinal canal and bilateral neuroforaminal roxana rowing, greater on the right. C4-5, disc osteophyte complex and bilateral facet arthropathy. There is mild spinal canal narrowing. There is mild to moderate bilateral neuroforaminal stenosis, fairly symmetric. C5-6, disc osteophyte complex and bilateral facet arthropathy. There is mild spinal [place] bilateral neuroforaminal narrowing. C6-7, disc osteophyte complex and bilateral facet arthropathy. There is mild spinal canal and bilateral neuroforaminal narrowing present. Impression: Impression: Multilevel cervical spondylosis is present, including some edematous spondylotic endplate changes at C6-7, potentially a source of acute axial neck pain. There is no evidence of associated high-grade spinal canal or neuroforaminal impingement. Electronically Signed: Prince Aly MD 03/05/2025 10:51 PM EDT Workstation ID: [id number] Current medications: Scheduled Meds:apixaban, 5 mg, Oral, Q12H aspirin, 81 mg, Oral, Daily Or aspirin, 300 mg, Rectal, Daily atorvastatin, 80 mg, Oral, Nightly bumetanide, 1 mg, Oral, QAM carvedilol, 6.25 mg, Oral, BID With Meals cyanocobalamin, 1,000 mcg, Intramuscular, Daily melatonin, 5 mg, Oral, Nightly predniSONE, 2 mg, Oral, Daily sodium chloride, 10 mL, Intravenous, Q12H [Held by provider] sulfaSALAzine, 1,000 mg, Oral, Q12H Continuous Infusions:Pharmacy Consult, PRN Meds:. acetaminophen aluminum-magnesium hydroxide-simethicone Calcium Replacement - Follow Nurse / BPA Driven Protocol HYDROcodone-acetaminophen Magnesium Standard Dose Replacement - Follow Nurse / BPA Driven Protocol ondansetron Pharmacy Consult Phosphorus Replacement - Follow Nurse / BPA Driven Protocol Potassium Replacement - Follow Nurse / BPA Driven Protocol sodium chloride sodium chloride traMADol Assessment & Plan Assessment & Plan Active Hospital Problems Diagnosis POA Stroke-like symptoms [R29.90] Yes Right sided weakness [R53.1] Yes Stenosis of left carotid artery [I65.22] Yes PAF (paroxysmal atrial fibrillation) [I48.0] Yes Primary hypertension [I10] Yes Chronic diastolic CHF (congestive heart failure) [I50.32] Yes C. 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 Brief Hospital Course to date: Mack Bower is a 84 y.o. male with PAF on Eliquis, HFpEF, hypertension, DM2, rheumatoid arthritis on sulfasalazine (new med since 01/2025), multiple myeloma transferred from outside hospital due to right sided weakness and possible ICA stenoses. Right sided weakness Left ICA stenosis - stroke neurology followed - MRI brain negative for ischemic event - bilateral carotid ultrasound less than 50% stenosis - continue asa 81 mg daily and eliquis 5 mg BID. Discontinued plavix - high intensity statin - target SBP 120-160, avoid hypotension - PT/OT -- IP rehab recommended -d/w neurology. Workup so far not very revealing, MRI did have abnormality at L4-L5 but likely not the explanation. B12 was low, repleting. EMG w peripheral neuropathy. Recommends pain control and PT, b12 supplementation. F/u w outpatient rheum PAF CAD - eliquis - verapamil/coreg held at admission, currently rate controlled - follows with Cardiology Dr Franks Diarrhea --initially concerns for c diff however more c/w adverse med affect. Diarrhea now resolved --d/w Dr Ok Richards, hold sulfaslazine in case diarrhea side effect of new med. Vanc dc'd HFpEF - bumex held at admission, resumed now DMII - A1c 6.6 - SSI - glucose reviewed HTN - verapamil, valsartan-HCTZ, doxazosin and coreg held at admission - BP currently at goal, add back meds stepwise as needed. Coreg added Rheumatoid Arthritis - resumed home prednisone -holding sulfasalazine as above. 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 - data deficient Expected Discharge Location and Transportation: Expected Discharge Expected Discharge Date: 03/08/2025; Expected Discharge Time: VTE Prophylaxis: Pharmacologic & mechanical VTE prophylaxis orders are present. AM-PAC 6 Clicks Score (PT): 10 (03/06/251999) CODE STATUS: Code Status and Medical Interventions: CPR (Attempt to Resuscitate); Full Support Ordered at: 03/03/25 1553 Code Status (Patient has no pulse and is not breathing): CPR (Attempt to Resuscitate) Medical Interventions (Patient has pulse or is breathing): Full Support Level Of Support Discussed With: Patient Allison Tyesha Zaragoza MD 03/07/25 * Allison Zaragoza MD - 03/06/2025 4:40 PM EDT Images from the original note were not included. [facility] Medicine Services PROGRESS NOTE Patient Name: Mack Bower : 1940 Date of Admission: 03/03/2025 Primary Care Physician: Shahid Guthrie MD Subjective Subjective CC: weakness HPI: No new issues overnight, weakness about the same Objective Objective Vital Signs: Temp: [97.6 ??F (36.4 ??C)-99 ??F (37.2 ??C)] 98.2 ??F (36.8 ??C) Heart Rate: [79-95] 82 Resp: [16-18] 18 BP: (123-150)/(53-77) 138/77 Flow (L/min) (Oxygen Therapy): [3] 3 Physical Exam: Constitutional: No acute distress, awake, alert HENT: NCAT, mucous membranes moist Respiratory: Clear to auscultation bilaterally, respiratory effort normal Cardiovascular: RRR, no murmurs, rubs, or gallops Gastrointestinal: Positive bowel sounds, soft, nontender, nondistended Musculoskeletal: No bilateral ankle edema Psychiatric: Appropriate affect, cooperative Neurologic: Oriented x 3, bilateral lower extremity flexion and extension significantly weaker. Plantar and dorsiflexion / Skin: diffuse skin lesions No significant change from 03/05 Results Reviewed: LAB RESULTS: Lab 03/06/25 0838 03/05/25 0811 03/04/25 0842 WBC 11.52* 10.64 11.08* HEMOGLOBIN 12.3* 12.2* 12.6* HEMATOCRIT 37.5 37.1* 39.3 PLATELETS 299 309 222 NEUTROS ABS 8.36* -- 8.15* IMMATURE GRANS (ABS) 0.06* -- 0.07* LYMPHS ABS 1.28 -- 1.10 MONOS ABS 1.29* -- 1.15* EOS ABS 0.47* -- 0.55* MCV 93.3 94.6 96.8 SED RATE -- 78* -- CRP -- 9.14* -- Lab 03/06/25 0953 03/05/25 0811 03/04/25 0842 03/03/25 2222 SODIUM 133* 139 137 -- POTASSIUM 4.5 4.0 3.7 3.8 CHLORIDE 99 102 101 -- CO2 27.0 29.0 25.0 -- ANION GAP 7.0 8.0 11.0 -- BUN 11.6 13.5 16.7 -- CREATININE 0.63* 0.69* 0.77 -- EGFR 95.0 92.4 89.4 -- GLUCOSE 177* 129* 130* -- CALCIUM 8.0* 8.4* 8.1* -- MAGNESIUM -- -- 2.2 2.2 PHOSPHORUS -- -- 2.3* -- HEMOGLOBIN A1C -- -- 6.62* -- Lab 03/04/25 0842 TOTAL PROTEIN 6.8 ALBUMIN 3.5 GLOBULIN 3.3 ALT (SGPT) 10 AST (SGOT) 13 BILIRUBIN 0.3 ALK PHOS 62 Lab 03/04/25 0842 CHOLESTEROL 142 LDL CHOL 89 HDL CHOL 34* TRIGLYCERIDES 103 Lab 03/05/25 1459 FOLATE 9.87 VITAMIN B 12 289 Brief Urine Lab Results None Microbiology Results Abnormal None MRI Thoracic Spine With & Without Contrast Result Date: 03/06/2025 MRI THORACIC SPINE W WO CONTRAST Date of Exam: 03/05/2025 10:46 PM EDT Indication: Bilateral lower extremity weakness and pain. Comparison: None available. Technique: Routine multiplanar/multisequencesequence images of the thoracic spine were obtained before and after the uneventful administration of Multihance. Findings: There is a round, microlobulated T1/T2/STIR hyperintense lesion of the T8 vertebral body compatible with hemangioma. Otherwise unremarkable bone marrow signal intensity. No evidence of fracture or loss of vertebral body height. No bony edema. There is normal spinal alignment. The intervertebral disc spaces appear grossly preserved without significant loss of intervertebraldisc height or advanced degenerative disc disease. There is small right-sided ligamentum flavum hypertrophy at T11-T12 (series 10 image 10). No conspicuous disc bulge or disc protrusion. Heterogeneous CSF flow voids are seen along the dorsal cord. No significant spinal canal or neuroforaminal stenosis. There is normal morphology and signal intensity of the imaged spinal cord. The conus terminatesat the level of the inferior endplate of L1. The paravertebral soft tissues appear unremarkable. Noabnormal bony or soft tissue enhancement on the postcontrast images. No pericardial or pleural effusion. Multiple right close partial visualization of bilateral renal cortical cysts. The paravertebral soft tissues appear unremarkable. Impression: Impression: No acute abnormality of the thoracic spine. No significant spinal canal or neuroforaminal stenosis. Electronically Signed: Gary Shaw MD 03/06/2025 8:45 AM EDT WorkstationID: [id number] MRI Cervical Spine Without Contrast Result Date: 03/05/2025 MRI CERVICAL SPINE WO CONTRAST Date of Exam: 03/05/2025 10:10 PM EDT Indication: BLE Weakness. Comparison: CT 03/02/2025. Technique: Routine multiplanar/multisequence sequence images of the cervical spine were obtained without contrast administration. Findings: Spondylotic endplate changes are present, including with some associated marrow edema at C6-7. T1 marrow signal is otherwise preserved, without evidence of fracture or suspicious marrow replacing lesion. There is straightening of the usualcervical lordosis, without evidence of listhesis or subluxation. The cervical spinal cord demonstrates no focal areas of intramedullary signal abnormality. The paraspinal soft tissues demonstrate no acute or suspicious findings. Multilevel spondylosis change is present, with areas of involvement noted including C2-3, no significant spinal canal or neuroforaminal impingement. C3-4, disc osteophytecomplex and bilateral facet arthropathy. There is mild spinal canal and bilateral neuroforaminal roxana rowing, greater on the right. C4-5, disc osteophyte complex and bilateral facet arthropathy. There is mild spinal canal narrowing. There is mild to moderate bilateral neuroforaminal stenosis, fairly symmetric. C5-6, disc osteophyte complex and bilateral facet arthropathy. There is mild spinal [place] bilateral neuroforaminal narrowing. C6-7, disc osteophyte complex and bilateral facet arthropathy. There is mild spinal canal and bilateral neuroforaminal narrowing present. Impression: Impression: Multilevel cervical spondylosis is present, including some edematous spondylotic endplate changes at C6-7, potentially a source of acute axial neck pain. There is no evidence of associated high-grade spinal canal or neuroforaminal impingement. Electronically Signed: Prince Aly MD 03/05/2025 10:51 PM EDT Workstation ID: [id number] Current medications: Scheduled Meds:apixaban, 5 mg, Oral, Q12H aspirin, 81 mg, Oral, Daily Or aspirin, 300 mg, Rectal, Daily atorvastatin, 80 mg, Oral, Nightly cyanocobalamin, 1,000 mcg, Intramuscular, Daily melatonin, 5 mg, Oral, Nightly predniSONE, 2 mg, Oral, Daily sodium chloride, 10 mL, Intravenous, Q12H [Held by provider] sulfaSALAzine, 1,000 mg, Oral, Q12H Continuous Infusions:Pharmacy Consult, PRN Meds:. acetaminophen aluminum-magnesium hydroxide-simethicone Calcium Replacement - Follow Nurse / BPA Driven Protocol HYDROcodone-acetaminophen Magnesium Standard Dose Replacement - Follow Nurse / BPA Driven Protocol ondansetron Pharmacy Consult Phosphorus Replacement - Follow Nurse / BPA Driven Protocol Potassium Replacement - Follow Nurse / BPA Driven Protocol sodium chloride sodium chloride traMADol Assessment & Plan Assessment & Plan Active Hospital Problems Diagnosis POA Stroke-like symptoms [R29.90] Yes Right sided weakness [R53.1] Yes Stenosis of left carotid artery [I65.22] Yes PAF (paroxysmal atrial fibrillation) [I48.0] Yes Primary hypertension [I10] Yes Chronic diastolic CHF (congestive heart failure) [I50.32] Yes C. 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 Brief Hospital Course to date: Mack Bower is a 84 y.o. male with PAF on Eliquis, HFpEF, hypertension, DM2, rheumatoid arthritis on sulfasalazine (new med since 01/2025), multiple myeloma transferred from outside hospital due to right sided weakness and possible ICA stenoses. Recent diagnosis of C diff. Right weakness Left ICA stenosis - stroke neurology followed - MRI brain negative for ischemic event - bilateral carotid ultrasound less than 50% stenosis - continue asa 81 mg daily and eliquis 5 mg BID. Discontinue plavix - high intensity statin - target SBP 120-160, avoid hypotension - PT/OT -- IP rehab recommended -d/w neurology. Workup so far not very revealing, MRI did have abnormality at L4-L5 and may benefitfrom nsgy eval. B12 was low, will replete. EMG is still pending. Cont pain control and PT PAF CAD - eliquis - verapamil/coreg held at admission, currently rate controlled - follows with Cardiology Dr Franks diarrhea - unclear if colonized or infection - obtain records from OSH --d/w Dr Ok Richards, hold sulfaslazine in case diarrhea side effect of new med. Vanc dc'd HFpEF - bumex held at admission, will resume DMII - A1c 6.6 - SSI - glucose reviewed HTN - verapamil, valsartan-HCTZ, doxazosin and coreg held at admission - BP currently at goal, add back meds stepwise as needed. Will add back coreg today Rheumatoid Arthritis - resumed home prednisone -holding sulfasalazine as above. 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 - data deficient Expected Discharge Location and Transportation: Expected Discharge Expected Discharge Date: 03/08/2025; Expected Discharge Time: VTE Prophylaxis: Pharmacologic & mechanical VTE prophylaxis orders are present. AM-PAC 6 Clicks Score (PT): 10 (03/06/25 0800) CODE STATUS: Code Status and Medical Interventions: CPR (Attempt to Resuscitate); Full Support Ordered at: 03/03/25 1553 Code Status (Patient has no pulse and is not breathing): CPR (Attempt to Resuscitate) Medical Interventions (Patient has pulse or is breathing): Full Support Level Of Support Discussed With: Patient Allison Zaragoza MD 03/06/25 * Torsten Matias DO - 03/06/2025 10:37 AM EDT [facility] Neurology Progress Note Patient Name: Mack Bower : 1940 Primary Care Physician: Shahid Guthrie MD Date of admission: 03/03/2025 Subjective Reason for consult: Bilateral lower extremity weakness. Has gone from walking daily to inability tolift both legs off bed. Stroke w/u neg, mri lumbar non revealing. Thoracic pending. May need EMG? History of Present Illness Ongoing weakness. Pain in bilateral knees Review of Systems General: Negative for fever, nausea, or vomiting. Neurological: Negative for headache, positive for pain and weakness. Objective Vitals: Temp: [97.8 ??F (36.6 ??C)-99 ??F (37.2 ??C)] 99 ??F (37.2 ??C) Heart Rate: [75-95] 95 Resp: [16-18] 18 BP: (128-150)/(53-97) 143/70 Flow (L/min) (Oxygen Therapy): [3] 3 Neurologic Exam Mental status/Cognition: awake and alert Speech/language: fluent; follows commands Cranial nerves: CN II Visual beltran full to confrontation. CN III,IV, PERRL. EOMI. No nystagmus noted. CN V Facial sensation intact to light touch bilaterally in V1, V2, V3 CN VII Face, Smile, Eyebrow raise symmetric. Eye closure strength 5/5 bilaterally CN VIII Hearing intact to voice CN IX & X Soft palate elevates symmetrically in the midline, no dysarthria CN XI Shoulder shrug, SCM 5/5 strength bilaterally CN XII Tongue protrudes midline Motor: Normal bulk. Normal tone. Right Left Comments NF SA 5 5 EE 5 5 EF 5 5 WF WE FF 5 5 IO 5 5 HF 2 5 KE 5 5 KF DF 5 5 PF 5 5 Sensation: Light Touch Intact at upper and lower extremities Pin Prick Vibration Absent at the bilateral great toes, medial malleolus, tibial tuberosity bilaterally, intact at the bilateral hands Temperature Proprioception Absent at the bilateral great toes Reflexes: Right Left Comments Biceps 1 1 Triceps 1 1 Brachioradialis 1 1 Patellar 0 0 Achilles 0 0 Lenz - - Plantar Mute Mute Jaw Jerk Coordination/Complex Motor: - [id number] intact bilaterally without dysmetria Current Medications Current Facility-Administered Medications: acetaminophen (TYLENOL) tablet 650 mg, 650 mg, Oral, Q4H PRN, Mack Prince DO, 650 mg at 03/05/25 0843 aluminum-magnesium hydroxide-simethicone (MAALOX MAX) 400-400-40 MG/5ML suspension 15 mL, 15 mL, Oral, Q6H PRN, Mack Prince DO apixaban (ELIQUIS) tablet 5 mg, 5 mg, Oral, Q12H, Mer Dove APRN, 5 mg at 03/06/25 0824 aspirin chewable tablet 81 mg, 81 mg, Oral, Daily, 81 mg at 03/06/25 0824 OR aspirin suppository 300 mg, 300 mg, Rectal, Daily, Mer Dove APRN atorvastatin (LIPITOR) tablet 80 mg, 80 mg, Oral, Nightly, Mer Dove, FIRE PREVENTION INSPECTOR, 80 mg at 03/05/25 204 Calcium Replacement - Follow Nurse / BPA Driven Protocol, , Not Applicable, PRNiki Escudero Richard M, HYDROcodone-acetaminophen (NORCO) 5-325 MG per tablet 1 tablet, 1 tablet, Oral, Q6H PRN, Allison Zaragoza MD, 1 tablet at 03/06/25 0849 Magnesium Standard Dose Replacement - Follow Nurse / BPA Driven Protocol, , Not Applicable, PRNNiki Richard M, DO melatonin tablet 5 mg, 5 mg, Oral, Nightly, Mack Prince DO, 5 mg at 03/05/252043 ondansetron (ZOFRAN) injection 4 mg, 4 mg, Intravenous, Q6H PRN, Mack Prince DO Pharmacy Consult, , Not Applicable, Continuous PRNNiki Richard M, DO Phosphorus Replacement - Follow Nurse / BPA Driven Protocol, , Not Applicable, PRNNiki RichardM, DO Potassium Replacement - Follow Nurse / BPA Driven Protocol, , Not Applicable, PRNNiki Richard M, DO predniSONE (DELTASONE) tablet 2 mg, 2 mg, Oral, Daily, Willy Santoyo MD, 2 mg at 03/06/25 0824 sodium chloride 0.9 % flush 10 mL, 10 mL, Intravenous, Q12H, Mer Dove APRN, 10 mL at 03/06/25 0824 sodium chloride 0.9 % flush 10 mL, 10 mL, Intravenous, PRN, Mer Dove APRN sodium chloride 0.9 % flush 10 mL, 10 mL, Intravenous, Q12H, Mack Prince DO, 10 mL at 03/06/25 0824 sodium chloride 0.9 % flush 10 mL, 10 mL, Intravenous, PRN, Mack Prince, sodium chloride 0.9 % infusion 40 mL, 40 mL, Intravenous, PRN, Mer Dove APRN sodium chloride 0.9 % infusion 40 mL, 40 mL, Intravenous, PRN, Mack Prince, DO [Held by provider] sulfaSALAzine (AZULFIDINE) tablet 1,000 mg, 1,000 mg, Oral, Q12H, Willy Santoyo MD, 1,000 mg at 03/05/25 0843 traMADol (ULTRAM) tablet 50 mg, 50 mg, Oral, Q8H PRN, Allison Zaragoza MD, 50 mg at 03/06/25 0553 Laboratory Results: Lab Results Component Value Date GLUCOSE 177 (H) 03/06/2025 CALCIUM 8.0 (L) 03/06/2025 NA 133 (L) 03/06/2025 K 4.5 03/06/2025 CO2 27.0 03/06/2025 CL 99 03/06/2025 BUN 11.6 03/06/2025 CREATININE 0.63 (L) 03/06/2025 BCR 18.4 03/06/2025 ANIONGAP 7.0 03/06/2025 Lab Results Component Value Date WBC 11.52 (H) 03/06/2025 HGB 12.3 (L) 03/06/2025 HCT 37.5 03/06/2025 MCV 93.3 03/06/2025 PLT 299 03/06/2025 Lab Results Component Value Date CHOL 142 03/04/2025 Lab Results Component Value Date HDL 34 (L) 03/04/2025 Lab Results Component Value Date LDL 89 03/04/2025 Lab Results Component Value Date HGBA1C 6.62 (H) 03/04/2025 Lab Results Component Value Date FOLATE 9.87 03/05/2025 Lab Results Component Value Date [id number] 03/05/2025 Lab Results Component Value Date CRP 9.14 (H) 03/05/2025 CK 101 Sed rate 78 Images/Procedures MRI lumbar without contrast 03/03/2025 Mild lumbar spondylosis, small annular fissure at L4-5 MRI brain without contrast 03/03/2025 Mild periventricular and subcortical FLAIR changes likely related to chronic vascular ischemic change MRI cervical spine without contrast 03/05/2025 Multilevel cervical spondylosis including some edematous spondylitic endplate changes at C6-7, no associated high-grade spinal canal or neuroforaminal impingement MRI thoracic spine without contrast 03/05/2025 No significant spinal canal or neuroforaminal stenosis Assessment / Plan Active Hospital Problems: Low B12 Right greater than left leg weakness Rheumatoid arthritis Brief Patient Summary: Mack Bower is a 84 y.o. male with history of atrial fibrillation, type 2 diabetes, RA, CHF, hypertension, multiple myeloma who presented to [facility] on 03/02 with right leg weakness and difficulty ambulation. He was transferred to [facility] on 03/03 for further workup. Initially seen by the stroke team, where CT head was unremarkable, CTA brain and neck showed 80% stenosis in leftICA and high-grade stenosis in right ICA. MRI brain negative for acute stroke. MRI lumbar spine showed a small annular fissure at L4-L5. On exam, right leg is 2/5, reports significant pain with bilateral hip flexion, knee extension. Sensory loss notable for vibration and proprioception in the bilateral lower extremities. Unclear etiology of his right leg weakness, MRI lumbar spine does show some changes at L4-L5 which may cause somehip flexor weakness, but unsure if it would contribute to this degree. He does have a low B12 whichis likely contributing to his lack of proprioception and vibration. Will obtain an EMG to rule out any radiculopathy. Will consider neurosurgery consult for evaluation, but I do not think there is a surgical candidate. Plan: - Give B12 1000 mcg daily for 7 days followed by once weekly for 4 weeks then once monthly - EMG/NCS - Pain control per primary - PT/OT I have discussed the above with the patient, family, bedside RN, hospitalist Time spent with patient: 60 minutes in alql-xi-blay evaluation and management of the patient. Torsten Matias DO, MS * Allison Zaragoza MD - 03/05/2025 4:19 PM EDT Images from the original note were not included. [facility] Medicine Services PROGRESS NOTE Patient Name: Mack Bower : 1940 Date of Admission: 03/03/2025 Primary Care Physician: Shahid Guthrie MD Subjective Subjective CC: weakness HPI: Continues to have difficulty w lower extremity weakness. Objective Objective Vital Signs: Temp: [98.4 ??F (36.9 ??C)-98.7 ??F (37.1 ??C)] 98.4 ??F (36.9 ??C) Heart Rate: [76-90] 76 Resp: [17-18] 17 BP: (136-153)/(68-81) 147/74 Flow (L/min) (Oxygen Therapy): [2-4] 3 Physical Exam: Constitutional: No acute distress, awake, alert HENT: NCAT, mucous membranes moist Respiratory: Clear to auscultation bilaterally, respiratory effort normal Cardiovascular: RRR, no murmurs, rubs, or gallops Gastrointestinal: Positive bowel sounds, soft, nontender, nondistended Musculoskeletal: No bilateral ankle edema Psychiatric: Appropriate affect, cooperative Neurologic: Oriented x 3, bilateral lower extremity flexion and extension significantly weaker. Plantar and dorsiflexion 5/5 Skin: diffuse skin lesions Results Reviewed: LAB RESULTS: Lab 03/05/25 0803/04/25 0842 WBC 10.64 11.08* HEMOGLOBIN 12.2* 12.6* HEMATOCRIT 37.1* 39.3 PLATELETS 309 222 NEUTROS ABS -- 8.15* IMMATURE GRANS (ABS) -- 0.07* LYMPHS ABS -- 1.10 MONOS ABS -- 1.15* EOS ABS -- 0.55* MCV 94.6 96.8 SED RATE 78* -- CRP 9.14* -- Lab 03/05/25 0811 03/04/25 0842 03/03/25 2222 SODIUM 139 137 -- POTASSIUM 4.0 3.7 3.8 CHLORIDE 102 101 -- CO2 29.0 25.0 -- ANION GAP 8.0 11.0 -- BUN 13.5 16.7 -- CREATININE 0.69* 0.77 -- EGFR 92.4 89.4 -- GLUCOSE 129* 130* -- CALCIUM 8.4* 8.1* -- MAGNESIUM -- 2.2 2.2 PHOSPHORUS -- 2.3* -- HEMOGLOBIN A1C -- 6.62* -- Lab 03/04/25 0842 TOTAL PROTEIN 6.8 ALBUMIN 3.5 GLOBULIN 3.3 ALT (SGPT) 10 AST (SGOT) 13 BILIRUBIN 0.3 ALK PHOS 62 Lab 03/04/25 0842 CHOLESTEROL 142 LDL CHOL 89 HDL CHOL 34* TRIGLYCERIDES 103 Brief Urine Lab Results None Microbiology Results Abnormal None Bilateral Carotid Duplex Result Date: 03/04/2025 Right internal carotid artery demonstrates a less than 50% stenosis. Antegrade right vertebral flow. Left internal carotid artery demonstrates a less than 50% stenosis. Antegrade left vertebral flow.There is external carotid artery stenosis noted bilaterally MRI Lumbar Spine Without Contrast Result Date: 03/04/2025 MRI LUMBAR SPINE WO CONTRAST Date of Exam: 03/03/2025 7:32 PM EDT Indication: RLE pain and weakness,new loss bowel control. Comparison: None available. Technique: Routine multiplanar/multisequence sequence images of the lumbar spine were obtained without contrast administration. Findings: T1 marrowsignal is preserved, without evidence of fracture or suspicious marrow replacing lesion. Alignment is anatomic, without evidence of significant listhesis or subluxation. The conus medullaris and cauda equina nerve roots are satisfactory in appearance. The paraspinal soft tissues demonstrate no acute or suspicious findings. Multilevel spondylosis is present, with areas of involvement including L1-2, no significant spinal canal or neuroforaminal impingement. L2-3, no significant spinal canal or neuroforaminal impingement. L3-4, no significant spinal canal or neuroforaminal impingement. L4-5, small disc bulge in addition to a focal zone of hyperintensity/annular fissure seen dorsally. There isminimal spinal canal narrowing. The neural foramina remain patent. L5-S1, small circumferential disc bulge and bilateral facet arthropathy. There is mild spinal canal and bilateral neuroforaminal narrowing. Impression: Impression: Generally mild lumbar spondylosis is present as above, including a small annular fissure at L4-5, potentially a source of acute axial back pain. There is no evidence of associated high-grade spinal canal or neuroforaminal impingement. Electronically Signed: Prince Aly MD03/04/2025 5:55 AM EDT Workstation ID: [id number] MRI Brain Without Contrast Result Date: 03/03/2025 MRI BRAIN WO CONTRAST Date of Exam: 03/03/2025 7:32 PM EDT Indication: Stroke, follow up right sidedweakness. Comparison: None available. Technique: Routine multiplanar/multisequence sequence images of the brain were obtained without contrast administration. Findings: There is no diffusion restriction to suggest acute infarct. There is no evidence of acute or chronic intracranial hemorrhage. No mass effect or midline shift. No abnormal extra-axial collections. Very mild periventricular and subcortical FLAIR signal changes are present. The major vascular flow voids appear intact. The basal ganglia, brainstem and cerebellum appear within normal limits. Calvarial and superficial soft tissue signal is within normal limits. Orbits appear unremarkable. The paranasal sinuses and the mastoid air cells appear well aerated. Midline structures are intact. Impression: Impression: 1.No evidence of hemorrhage, mass effect or midline shift. No evidence of recent or acute ischemia. 2.Very mild periventricular and subcortical FLAIR signal changes likely related to chronic microvascular ischemic change. Electronically Signed: Sloane Licea MD 03/03/2025 9:09PM EDT Workstation ID: [id number] Current medications: Scheduled Meds:apixaban, 5 mg, Oral, Q12H aspirin, 81 mg, Oral, Daily Or aspirin, 300 mg, Rectal, Daily atorvastatin, 80 mg, Oral, Nightly melatonin, 5 mg, Oral, Nightly predniSONE, 2 mg, Oral, Daily sodium chloride, 10 mL, Intravenous, Q12H sodium chloride, 10 mL, Intravenous, Q12H [Held by provider] sulfaSALAzine, 1,000 mg, Oral, Q12H vancomycin, 125 mg, Oral, Q6H Continuous Infusions:Pharmacy Consult, PRN Meds:. acetaminophen aluminum-magnesium hydroxide-simethicone Calcium Replacement - Follow Nurse / BPA Driven Protocol HYDROcodone-acetaminophen Magnesium Standard Dose Replacement - Follow Nurse / BPA Driven Protocol ondansetron Pharmacy Consult Phosphorus Replacement - Follow Nurse / BPA Driven Protocol Potassium Replacement - Follow Nurse / BPA Driven Protocol sodium chloride sodium chloride sodium chloride sodium chloride traMADol Assessment & Plan Assessment & Plan Active Hospital Problems Diagnosis POA Stroke-like symptoms [R29.90] Yes Right sided weakness [R53.1] Yes Stenosis of left carotid artery [I65.22] Yes PAF (paroxysmal atrial fibrillation) [I48.0] Yes Primary hypertension [I10] Yes Chronic diastolic CHF (congestive heart failure) [I50.32] Yes C. 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 Brief Hospital Course to date: Mack Bower is a 84 y.o. male with PAF on Eliquis, HFpEF, hypertension, DM2, rheumatoid arthritis on sulfasalazine (new med since 01/2025), multiple myeloma transferred from outside hospital due to right sided weakness and possible ICA stenoses. Recent diagnosis of C diff. Right weakness Left ICA stenosis - stroke neurology followed - MRI brain negative for ischemic event - bilateral carotid ultrasound less than 50% stenosis - continue asa 81 mg daily and eliquis 5 mg BID. Discontinue plavix - high intensity statin - target SBP 120-160, avoid hypotension - PT/OT -- IP rehab recommended -consulted general neuro for weakness-- planning for MRI cervical and thoracic spine, EMG , vit b12/folate , CK PAF CAD - eliquis - verapamil/coreg held at admission, currently rate controlled - follows with Cardiology Dr Franks C diff - unclear if colonized or infection - obtain records from OSH - continue oral vancomycin --d/w Dr Ok Richards, hold sulfaslazine in case diarrhea side effect of new med HFpEF - bumex held at admission, consider resuming soon DMII - A1c 6.6 - SSI - glucose reviewed HTN - verapamil, valsartan-HCTZ, doxazosin and coreg held at admission - BP currently at goal, add back meds stepwise as needed Rheumatoid Arthritis - resumed home prednisone -holding sulfasalazine as above. 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 - data deficient Expected Discharge Location and Transportation: Expected Discharge Expected Discharge Date: 03/06/2025; Expected Discharge Time: VTE Prophylaxis: Pharmacologic & mechanical VTE prophylaxis orders are present. AM-PAC 6 Clicks Score (PT): 10 (03/05/25 0800) CODE STATUS: Code Status and Medical Interventions: CPR (Attempt to Resuscitate); Full Support Ordered at: 03/03/25 5305 Code Status (Patient has no pulse and is not breathing): CPR (Attempt to Resuscitate) Medical Interventions (Patient has pulse or is breathing): Full Support Level Of Support Discussed With: Patient Allison Zaragoza MD 03/05/25 * Angelina De Leon, FIRE PREVENTION INSPECTOR - 03/05/2025 1:42 PM EDT [facility] Neurology Progress Note Patient Name: Mack Bower : 1940 Primary Care Physician: Shahid Guthrie MD Date of admission: 03/03/2025 Subjective Chief Complaint: Bilateral lower extremity weakness. Has gone from walking daily to inability to lift both legs off bed. Stroke w/u neg, mri lumbar non revealing. Thoracic pending. May need EMG? History of Present Illness Patient seen resting comfortably in bed. Describes an acute onset on Wednesday of bilateral lower extremity weakness. He denies any recent sickness, cough, chills, nausea or vomiting. He does endorse some diarrhea that occurred on Wednesday morning. He denies any trauma, fall, head hit or loss ofconsciousness. He denies any motor vehicle accident. Review of Systems General: Negative for fever, nausea, or vomiting. Neurological: Negative for headache, pain, or weakness. Objective Physical Exam Vitals and nursing note reviewed. Constitutional: General: He is not in acute distress. Appearance: He is not ill-appearing. Eyes: General: No visual field deficit. Extraocular Movements: Extraocular movements intact. Pupils: Pupils are equal, round, and reactive to light. Comments: No nystagmus or deviated gaze noted Neurological: Mental Status: He is alert and oriented to person, place, and time. Cranial Nerves: No cranial nerve deficit, dysarthria or facial asymmetry. Sensory: Sensory deficit present. Motor: Weakness present. No tremor, abnormal muscle tone, seizure activity or pronator drift. Coordination: Heel to Easley Test abnormal. Rmsihj-Xkcu-Jxpkyv Test normal. Deep Tendon Reflexes: Reflex Scores: Bicep reflexes are 1+ on the right side and 1+ on the left side. Patellar reflexes are 0 on the right side and 0 on the left side. Achilles reflexes are 0 on the right side and 0 on the left side. Comments: Cranial Nerves CN II: Pupils are equal, round, and reactive to light. Normal visual acuity and visual beltran. CN III IV : Extraocular movements are full without nystagmus. CN V: Normal facial sensation and strength of muscles of mastication. CN VII: Facial movements are symmetric. No weakness. CN VIII: Auditory acuity is normal. CN IX & X: Symmetric palatal movement. CN XI: Sternocleidomastoid and trapezius are normal. No weakness. CN XII: The tongue is midline. No atrophy or fasciculations. Bilateral lower extremity proprioception not intact Vibration deficit noted in bilateral distal lower extremities Unequivocal Babinski's Strength: Neck extension strength 5/5 Neck Flexion 5 /5 Bilateral trapezius strength 5/5 Bilateral tricep strength 5/5 Bilateral bicep strength 5 /5 Bilateral finger extension 5/5 Wrist flexion strength wrist 5/5 Wrist extension strength 5/5 Left hip extension +4/5 Right hip extension 4/5 Left hip flexion -4/5 Right hip flexion 3/5 Left knee extension -4/5 Right knee extension 1/5 Left knee flexion -4/5 Right knee flexion 1/5 Bilateral foot extension 4/5 Bilateral foot flexion 4/5 Unable to complete [id number] Vitals: Temp: [98.2 ??F (36.8 ??C)-98.7 ??F (37.1 ??C)] 98.4 ??F (36.9 ??C) Heart Rate: [76-90] 76 Resp: [17-18] 17 BP: (136-153)/(68-81) 147/74 Flow (L/min) (Oxygen Therapy): [2-4] 3 Current Medications Current Facility-Administered Medications: acetaminophen (TYLENOL) tablet 650 mg, 650 mg, Oral, Q4H PRN, Mack Prince, , 650 mg at 03/05/25 0843 aluminum-magnesium hydroxide-simethicone (MAALOX MAX) 400-400-40 MG/5ML suspension 15 mL, 15 mL, Oral, Q6H PRN, Mack Prince DO apixaban (ELIQUIS) tablet 5 mg, 5 mg, Oral, Q12H, Mer Dove, FIRE PREVENTION INSPECTOR, 5 mg at 03/05/25 0844 aspirin chewable tablet 81 mg, 81 mg, Oral, Daily, 81 mg at 03/05/25 0844 OR aspirin suppository 300 mg, 300 mg, Rectal, Daily, Mer Dove APRN atorvastatin (LIPITOR) tablet 80 mg, 80 mg, Oral, Nightly, Mer Dove APRN, 80 mg at 03/04/252058 Calcium Replacement - Follow Nurse / BPA Driven Protocol, , Not Applicable, PRNiki Escudero Richard M, DO Magnesium Standard Dose Replacement - Follow Nurse / BPA Driven Protocol, , Not Applicable, PRNNiki Richard M, DO melatonin tablet 5 mg, 5 mg, Oral, Nightly, Mack Prince DO, 5 mg at 03/04/25 2100 ondansetron (ZOFRAN) injection 4 mg, 4 mg, Intravenous, Q6H PRN, Mack Prince DO Pharmacy Consult, , Not Applicable, Continuous PRNNiki Richard M, DO Phosphorus Replacement - Follow Nurse / BPA Driven Protocol, , Not Applicable, PRNiki Escudero RichardM, DO Potassium Replacement - Follow Nurse / BPA Driven Protocol, , Not Applicable, PRNiki Escudero Richard M, DO predniSONE (DELTASONE) tablet 2 mg, 2 mg, Oral, Daily, Willy Santoyo MD, 2 mg at 03/05/25 0843 sodium chloride 0.9 % flush 10 mL, 10 mL, Intravenous, Q12H, Mer Dove APRN, 10 mL at 03/05/25 0844 sodium chloride 0.9 % flush 10 mL, 10 mL, Intravenous, PRN, Mer Dove, FIRE PREVENTION INSPECTOR sodium chloride 0.9 % flush 10 mL, 10 mL, Intravenous, Q12H, Mack Prince DO, 10 mL at 03/05/25 0844 sodium chloride 0.9 % flush 10 mL, 10 mL, Intravenous, PRN, Mack Prince, sodium chloride 0.9 % infusion 40 mL, 40 mL, Intravenous, PRN, Mer Dove, LEONEL sodium chloride 0.9 % infusion 40 mL, 40 mL, Intravenous, PRNNiki Richard M, sulfaSALAzine (AZULFIDINE) tablet 1,000 mg, 1,000 mg, Oral, Q12H, Willy Santoyo MD, 1,000 mg at 03/05/25 0843 traMADol (ULTRAM) tablet 50 mg, 50 mg, Oral, Q8H PRN, Allison Zaragoza MD, 50 mg at 03/05/25 1200 vancomycin (VANCOCIN) capsule 125 mg, 125 mg, Oral, Q6H, Mack Prince DO, 125 mg at 03/05/25 1200 Laboratory Results: Lab Results Component Value Date GLUCOSE 129 (H) 03/05/2025 CALCIUM 8.4 (L) 03/05/2025 NA 139 03/05/2025 K 4.0 03/05/2025 CO2 29.0 03/05/2025 CL 102 03/05/2025 BUN 13.5 03/05/2025 CREATININE 0.69 (L) 03/05/2025 BCR 19.6 03/05/2025 ANIONGAP 8.0 03/05/2025 Lab Results Component Value Date WBC 10.64 03/05/2025 HGB 12.2 (L) 03/05/2025 HCT 37.1 (L) 03/05/2025 MCV 94.6 03/05/2025 PLT 309 03/05/2025 Lab Results Component Value Date CHOL 142 03/04/2025 Lab Results Component Value Date HDL 34 (L) 03/04/2025 Lab Results Component Value Date LDL 89 03/04/2025 Lab Results Component Value Date TRIG 103 03/04/2025 Lab Results Component Value Date HGBA1C 6.62 (H) 03/04/2025 No results found for: INR , PROTIME No results found for: FOLATE No results found for: [id number] MRI Brain Without Contrast Result Date: 03/03/2025 MRI BRAIN WO CONTRAST Date of Exam: 03/03/2025 7:32 PM EDT Indication: Stroke, follow up right sidedweakness. Comparison: None available. Technique: Routine multiplanar/multisequence sequence images of the brain were obtained without contrast administration. Findings: There is no diffusion restriction to suggest acute infarct. There is no evidence of acute or chronic intracranial hemorrhage. No mass effect or midline shift. No abnormal extra-axial collections. Very mild periventricular and subcortical FLAIR signal changes are present. The major vascular flow voids appear intact. The basal ganglia, brainstem and cerebellum appear within normal limits. Calvarial and superficial soft tissue signal is within normal limits. Orbits appear unremarkable. The paranasal sinuses and the mastoid air cells appear well aerated. Midline structures are intact. Impression: Impression: 1.No evidence of hemorrhage, mass effect or midline shift. No evidence of recent or acute ischemia. 2.Very mild periventricular and subcortical FLAIR signal changes likely related to chronic microvascular ischemic change. Electronically Signed: Sloane Licea MD 03/03/2025 9:09PM EDT Workstation ID: [id number] Assessment / Plan Brief Patient Summary: Mack Bower is a 84 y.o. male who with known PAF on Eliquis, HFpEF, HTN, T2DM, RA, multiple myeloma s/p excision who was transferred from [facility] for evaluation of right sidedweakness. Patient was originally seen by stroke neurology with a negative workup. CT head negative for acute abnormality. CTAs of head and neck showed moderate stenosis of left ICA. MRI brain showed no acute intracranial. MRI of the lumbar was essentially unremarkable with the exception of small annular fissure at L4-L5. Ultrasound was performed that showed less than 50% stenosis of bilateral carotid arteries. Stroke neurology recommended ASA, continuation of home Eliquis and atorvastatin for secondary stroke prevention. On examination patient's exam seems to be somewhat pain limited. Patient describes acute onset of bilateral lower extremity weakness occurring Wednesday morning. Most of patient's pain is revolved around movement of the bilateral distal lower extremities. Patient states the only recent medication change has occurred was approximately 1 month ago he was placed on sulfasalazine for his RA. Differential still remains quite broad. Possible structural, vitamin deficiency, drug side effects,spinal cord/nerve disease. Less likely to be stroke given negative workup. Plan: Bilateral lower extremity weakness affecting right greater than left MRI Cervical and Thoraic EMG/NCS to be completed Wed morning Vit B12 and folate Patient to work with PT/OT Up to chair as tolerated. Neurochecks Continue fall precautions CRP and sed rate CK General Neurology will continue to follow I have discussed the above with the patient, bedside RN Dr. Duffy and Dr. Zaragoza Time spent with patient: 50 minutes in nvji-ke-vihc evaluation and management of the patient. Copied text in this note has been reviewed and is accurate as of 03/05/25. Angelina De Leon APRN Cosigned by David Duffy MD at 03/07/2025 10:01 AM EDT Associated attestation - David Duffy MD - 03/07/2025 10:01 AM EDT I have reviewed this documentation and agree. * Willy Santoyo MD - 03/04/2025 5:14 PM EDT Images from the original note were not included. [facility] Medicine Services PROGRESS NOTE Patient Name: Mack Bower : 1940 Date of Admission: 03/03/2025 Primary Care Physician: Shahid Guthrie MD Subjective Subjective CC: weakness HPI: Still has a hard time extending his right leg. Says he has been having trouble with his right knee. Denies loose stool Objective Objective Vital Signs: Temp: [97.6 ??F (36.4 ??C)-98.9 ??F (37.2 ??C)] 98.2 ??F (36.8 ??C) Heart Rate: [75-79] 76 Resp: [17-18] 17 BP: (106-147)/(62-76) 147/71 Flow (L/min) (Oxygen Therapy): [2] 2 Physical Exam: Appears chronically deconditioned, up in chair MM moist RRR Breath sounds diminished Abd soft, obese Awake, speech clear Normal affect Diminished strength extending right leg, however bilateral dorsi and plantarflexion 11/20 Results Reviewed: LAB RESULTS: Lab 03/04/25 0842 WBC 11.08* HEMOGLOBIN 12.6* HEMATOCRIT 39.3 PLATELETS 222 NEUTROS ABS 8.15* IMMATURE GRANS (ABS) 0.07* LYMPHS ABS 1.10 MONOS ABS 1.15* EOS ABS 0.55* MCV 96.8 Lab 03/04/25 0842 03/03/25 2222 SODIUM 137 -- POTASSIUM 3.7 3.8 CHLORIDE 101 -- CO2 25.0 -- ANION GAP 11.0 -- BUN 16.7 -- CREATININE 0.77 -- EGFR 89.4 -- GLUCOSE 130* -- CALCIUM 8.1* -- MAGNESIUM 2.2 2.2 PHOSPHORUS 2.3* -- HEMOGLOBIN A1C 6.62* -- Lab 03/04/25 0842 TOTAL PROTEIN 6.8 ALBUMIN 3.5 GLOBULIN 3.3 ALT (SGPT) 10 AST (SGOT) 13 BILIRUBIN 0.3 ALK PHOS 62 Lab 03/04/25 0842 CHOLESTEROL 142 LDL CHOL 89 HDL CHOL 34* TRIGLYCERIDES 103 Brief Urine Lab Results None Microbiology Results Abnormal None Bilateral Carotid Duplex Result Date: 03/04/2025 Right internal carotid artery demonstrates a less than 50% stenosis. Antegrade right vertebral flow. Left internal carotid artery demonstrates a less than 50% stenosis. Antegrade left vertebral flow.There is external carotid artery stenosis noted bilaterally MRI Lumbar Spine Without Contrast Result Date: 03/04/2025 MRI LUMBAR SPINE WO CONTRAST Date of Exam: 03/03/2025 7:32 PM EDT Indication: RLE pain and weakness,new loss bowel control. Comparison: None available. Technique: Routine multiplanar/multisequence sequence images of the lumbar spine were obtained without contrast administration. Findings: T1 marrowsignal is preserved, without evidence of fracture or suspicious marrow replacing lesion. Alignment is anatomic, without evidence of significant listhesis or subluxation. The conus medullaris and cauda equina nerve roots are satisfactory in appearance. The paraspinal soft tissues demonstrate no acute or suspicious findings. Multilevel spondylosis is present, with areas of involvement including L1-2, no significant spinal canal or neuroforaminal impingement. L2-3, no significant spinal canal or neuroforaminal impingement. L3-4, no significant spinal canal or neuroforaminal impingement. L4-5, small disc bulge in addition to a focal zone of hyperintensity/annular fissure seen dorsally. There isminimal spinal canal narrowing. The neural foramina remain patent. L5-S1, small circumferential disc bulge and bilateral facet arthropathy. There is mild spinal canal and bilateral neuroforaminal narrowing. Impression: Impression: Generally mild lumbar spondylosis is present as above, including a small annular fissure at L4-5, potentially a source of acute axial back pain. There is no evidence of associated high-grade spinal canal or neuroforaminal impingement. Electronically Signed: Prince Aly MD03/04/2025 5:55 AM EDT Workstation ID: [id number] MRI Brain Without Contrast Result Date: 03/03/2025 MRI BRAIN WO CONTRAST Date of Exam: 03/03/2025 7:32 PM EDT Indication: Stroke, follow up right sidedweakness. Comparison: None available. Technique: Routine multiplanar/multisequence sequence images of the brain were obtained without contrast administration. Findings: There is no diffusion restriction to suggest acute infarct. There is no evidence of acute or chronic intracranial hemorrhage. No mass effect or midline shift. No abnormal extra-axial collections. Very mild periventricular and subcortical FLAIR signal changes are present. The major vascular flow voids appear intact. The basal ganglia, brainstem and cerebellum appear within normal limits. Calvarial and superficial soft tissue signal is within normal limits. Orbits appear unremarkable. The paranasal sinuses and the mastoid air cells appear well aerated. Midline structures are intact. Impression: Impression: 1.No evidence of hemorrhage, mass effect or midline shift. No evidence of recent or acute ischemia. 2.Very mild periventricular and subcortical FLAIR signal changes likely related to chronic microvascular ischemic change. Electronically Signed: Sloane Licea MD 03/03/2025 9:09PM EDT Workstation ID: [id number] Current medications: Scheduled Meds:apixaban, 5 mg, Oral, Q12H aspirin, 81 mg, Oral, Daily Or aspirin, 300 mg, Rectal, Daily atorvastatin, 80 mg, Oral, Nightly melatonin, 5 mg, Oral, Nightly sodium chloride, 10 mL, Intravenous, Q12H sodium chloride, 10 mL, Intravenous, Q12H vancomycin, 125 mg, Oral, Q6H Continuous Infusions:Pharmacy Consult, PRN Meds:. acetaminophen aluminum-magnesium hydroxide-simethicone Calcium Replacement - Follow Nurse / BPA Driven Protocol Magnesium Standard Dose Replacement - Follow Nurse / BPA Driven Protocol ondansetron Pharmacy Consult Phosphorus Replacement - Follow Nurse / BPA Driven Protocol Potassium Replacement - Follow Nurse / BPA Driven Protocol sodium chloride sodium chloride sodium chloride sodium chloride Assessment & Plan Assessment & Plan Active Hospital Problems Diagnosis POA Stroke-like symptoms [R29.90] Yes Stenosis of left carotid artery [I65.22] Yes PAF (paroxysmal atrial fibrillation) [I48.0] Yes Primary hypertension [I10] Yes Chronic diastolic CHF (congestive heart failure) [I50.32] Yes C. 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 Brief Hospital Course to date: Mack Bower is a 84 y.o. male with PAF on Eliquis, HFpEF, hypertension, DM2, rheumatoid arthritis on sulfasalazine, multiple myeloma transferred from outside hospital due to right sided weaknessand possible ICA stenoses. Recent diagnosis of C diff. Right weakness Left ICA stenosis - stroke neurology followed - MRI brain negative for ischemic event - bilateral carotid ultrasound less than 50% stenosis - continue asa 81 mg daily and eliquis 5 mg BID. Discontinue plavix - pam intensity statin - target SBP 120-160, avoid hypotension - PT/OT -- IP rehab recommended PAF CAD - eliquis - verapamil/coreg held at admission, currently rate controlled - follows with Cardiology Dr Golden [place] diff - unclear if colonized or infection - obtain records from OSH - continue oral vancomycin HFpEF - bumex held at admission, consider resuming in am DMII - A1c 6.6 - SSI - glucose reviewed HTN - verapamil, valsartan-HCTZ, doxazosin and coreg held at admission - BP currently at goal, add back meds stepwise as needed Rheumatoid Arthritis - resume home prednisone and sulfasalazine - MTX recently discontinued due to cutaneous squamous cell carcinoma - follows with Rheumatology Dr Richards Squamous Cell Skin Cancer H/o melanoma - follows with dermatology and has been referred to Oncology Dr Carney to consider immunotherpy BPH MM? - data deficient Expected Discharge Location and Transportation: Expected Discharge Expected Discharge Date: 03/06/2025; Expected Discharge Time: VTE Prophylaxis: Pharmacologic & mechanical VTE prophylaxis orders are present. AM-PAC 6 Clicks Score (PT): 10 (03/04/25 0047) CODE STATUS: Code Status and Medical Interventions: CPR (Attempt to Resuscitate); Full Support Ordered at: 03/03/25 4613 Code Status (Patient has no pulse and is not breathing): CPR (Attempt to Resuscitate) Medical Interventions (Patient has pulse or is breathing): Full Support Level Of Support Discussed With: Patient Willy Meyers. MD Natanael 03/04/25 * Sergio Jean Baptiste MD - 03/04/2025 3:37 PM EDT Stroke Progress Note Chief Complaint: RLE weakness Subjective Subjective Subjective: The patient is lying down in the bed in [facility]. Family were at the bedside. The patient stated that hecontinues to have weakness in the right lower extremity that is associated with right knee pain. Healso mention to me that he is having intermittent lower back pain. Denies having any other stroke or strokelike symptoms. I have a detailed discussion with patient and his family regarding his imaging findings what could possibly explain his symptoms. We also discussed management plan moving forward. No other acute complains at this time Review of Systems Constitutional: fatigue Objective Temp: [97.6 ??F (36.4 ??C)-98.9 ??F (37.2 ??C)] 97.8 ??F (36.6 ??C) Heart Rate: [75-79] 76 Resp: [17-18] 17 BP: (106-147)/(61-76) 106/73 Objective GEN: lying in bed; in NAD HENT: normocephalic, non-erythematous oropharynx NEURO: Mental Status: A&O x 3 (he knows he is in the hospital in [place] but he does not know which hospital), interactive, able to follow commands Speech: Intact Articulation CN 2-12: II - PERRLA III, IV, - EOMI V - Facial sensation intact VII -no gross facial asymmetry VIII - Auditory acuity intact XII - Tongue protrudes midline Motor: The patient is able to move bilateral upper extremities against gravity with no drift appreciated. He is able to bend his knee on the left side but not on the right side. Plantar and dorsiflexion of the ankle bilaterally is 4+/5 Sensory: intact light touch throughout Coordination: no ataxia with [id number] testing Gait/Station: deferred Results Review: I reviewed the patient's new clinical results. WBC Date Value Ref Range Status 03/04/2025 11.08 (H) 3.40 - 10.80 10*3/mm3 Final RBC Date Value Ref Range Status 03/04/2025 4.06 (L) 4.14 - 5.80 10*6/mm3 Final Hemoglobin Date Value Ref Range Status 03/04/2025 12.6 (L) 13.0 - 17.7 g/dL Final Hematocrit Date Value Ref Range Status 03/04/2025 39.3 37.5 - 51.0 % Final MCV Date Value Ref Range Status 03/04/2025 96.8 79.0 - 97.0 fL Final MCH Date Value Ref Range Status 03/04/2025 31.0 26.6 - 33.0 pg Final MCHC Date Value Ref Range Status 03/04/2025 32.1 31.5 - 35.7 g/dL Final RDW Date Value Ref Range Status 03/04/2025 15.3 12.3 - 15.4 % Final RDW-SD Date Value Ref Range Status 03/04/2025 54.4 (H) 37.0 - 54.0 fl Final MPV Date Value Ref Range Status 03/04/2025 9.8 6.0 - 12.0 fL Final Platelets Date Value Ref Range Status 03/04/2025 222 140 - 450 10*3/mm3 Final Neutrophil % Date Value Ref Range Status 03/04/2025 73.6 42.7 - 76.0 % Final Lymphocyte % Date Value Ref Range Status 03/04/2025 9.9 (L) 19.6 - 45.3 % Final Monocyte % Date Value Ref Range Status 03/04/2025 10.4 5.0 - 12.0 % Final Eosinophil % Date Value Ref Range Status 03/04/2025 5.0 0.3 - 6.2 % Final Basophil % Date Value Ref Range Status 03/04/2025 0.5 0.0 - 1.5 % Final Immature Grans % Date Value Ref Range Status 03/04/2025 0.6 (H) 0.0 - 0.5 % Final Neutrophils, Absolute Date Value Ref Range Status 03/04/2025 8.15 (H) 1.70 - 7.00 10*3/mm3 Final Lymphocytes, Absolute Date Value Ref Range Status 03/04/2025 1.10 0.70 - 3.10 10*3/mm3 Final Monocytes, Absolute Date Value Ref Range Status 03/04/2025 1.15 (H) 0.10 - 0.90 10*3/mm3 Final Eosinophils, Absolute Date Value Ref Range Status 03/04/2025 0.55 (H) 0.00 - 0.40 10*3/mm3 Final Basophils, Absolute Date Value Ref Range Status 03/04/2025 0.06 0.00 - 0.20 10*3/mm3 Final Immature Grans, Absolute Date Value Ref Range Status 03/04/2025 0.07 (H) 0.00 - 0.05 10*3/mm3 Final nRBC Date Value Ref Range Status 03/04/2025 0.0 0.0 - 0.2 /100 WBC Final Lab Results Component Value Date GLUCOSE 130 (H) 03/04/2025 BUN 16.7 03/04/2025 CREATININE 0.77 03/04/2025 NA 137 03/04/2025 K 3.7 03/04/2025 CL 101 03/04/2025 CALCIUM 8.1 (L) 03/04/2025 PROTEINTOT 6.8 03/04/2025 ALBUMIN 3.5 03/04/2025 ALT 10 03/04/2025 AST 13 03/04/2025 ALKPHOS 62 03/04/2025 BILITOT 0.3 03/04/2025 GLOB 3.3 03/04/2025 AGRATIO 1.1 03/04/2025 BCR 21.7 03/04/2025 ANIONGAP 11.0 03/04/2025 EGFR 89.4 03/04/2025 MRI Lumbar Spine Without Contrast Result Date: 03/04/2025 Impression: Generally mild lumbar spondylosis is present as above, including a small annular fissure at L4-5, potentially a source of acute axial back pain. There is no evidence of associated high-grade spinal canal or neuroforaminal impingement. Electronically Signed: Prince Aly MD 03/04/2025 5:55 AM EDT Workstation ID: [id number] MRI Brain Without Contrast Result Date: 03/03/2025 Impression: 1.No evidence of hemorrhage, mass effect or midline shift. No evidence of recent or acute ischemia. 2.Very mild periventricular and subcortical FLAIR signal changes likely related to chronic microvascular ischemic change. Electronically Signed: Sloane Licea MD 03/03/2025 9:09 PM EDT Workstation ID: [id number] -[id number] wo on 03/02/2025 images were personally reviewed and showed no acute ischemic or hemorrhagic stroke -CTA of the head and neck images from 03/02/2025 were personally reviewed and showed moderate stenosis of the left ICA -MRI brain images from 03/03/2025 were personally reviewed and showed no ischemic or hemorrhagic stroke -MRI of the lumbar spine is unremarkable except for small annular fissure at the L4-L5 level. -Bilateral carotid artery ultrasound on 03/04/2025 showed less than 50% stenosis of bilateral carotid arteries -Transthoracic echocardiogram is pending -A1c from 03/04/2025 was 6.62% -LDL from 03/04/2025 was 89 Assessment/Plan 84 year old male with multiple vascular risk factors who presented to [facility] with complaints of RLE weakness and gait instability. CTH was completed and negative for any acute intracranial process. CTA head and neck showed LICA stenosis of approximately 80%. He is not deemed denisse an appropriate IV thrombolytic therapy candidate secondary to extended LKW. Not deemed to be an emergent endovascular intervention candidate at this time as any benefit would be outweighed by riskat this time. Antiplatelet EDITOR IN CHIEF: ASA/PLAVIX (ADDED AT [facility]) Anticoagulant EDITOR IN CHIEF: ELIQUIS #LICA Stenosis #RLE && RUE Weakness -Etiology of patient's symptoms likely due to right knee pain versus other peripheral etiologies. Less likely to be vascular in nature -[facility] wo on 03/02/2025 images were personally reviewed and showed no acute ischemic or hemorrhagic stroke -CTA of the head and neck images from 03/02/2025 were personally reviewed and showed moderate stenosis of the left ICA -MRI brain images from 03/03/2025 were personally reviewed and showed no ischemic or hemorrhagic stroke -MRI of the lumbar spine is unremarkable except for small annular fissure at the L4-L5 level. -Bilateral carotid artery ultrasound on 03/04/2025 showed less than 50% stenosis of bilateral carotid arteries -Transthoracic echocardiogram is pending -A1c from 03/04/2025 was 6.62% -LDL from 03/04/2025 was 89 Recommendations - Continue aspirin 81 mg daily for secondary stroke prevention in the setting of atherosclerosis - Continue home Eliquis 5 mg twice daily for secondary stroke prevention - Continue atorvastatin 80 mg nightly for secondary stroke prevention. Target LDL level of less than 70 -Target blood pressure goals of 120-160. Avoid hypotension and dehydration - NIHSS && neurochecks per protocol - STAT CTH for any neurologic decline - PT OT YOUTH ASSOCIATE per their recommendations - Discontinue recently added Plavix, no need for triple therapy at this time - Stroke team will sign off Please call for any further questions or concerns Sergio Jean Baptiste MD, Msc, PhD Vascular Neurologist [facility] documented in this encounter H&P Notes * Mack Prince DO - 03/03/2025 3:48 PM EDT Images from the original note were not included. [facility] Medicine Services HISTORY AND PHYSICAL Patient Name: Mack Bower : 1940 Primary Care Physician: Shahid Guthrie MD Date of admission: 03/03/2025 Subjective Subjective Source of Information: Patient, ER signout, EMR Chief Complaint: No chief complaint on file. HPI: Mack Bower is a 84 y.o. male with PMHx of PAF on Eliquis, HFpEF/Chronic diastolic CHF (Gr 2, 01/2023), HTN, DM2, RA on Sulfasalazine, Multiple myeloma s/p excision who was transferred from [facility] for evaluation of right-sided weakness. LTKW: 02/28. The patient reported progressively worsening RLE pain and weakness to the RLE to the point where he was having difficulty walking. He also endorsed RUE weakness. 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 Furthermore, he endorsed abdominal bloating and diarrhea secondary to recently being diagnosed with C.Diff; he has taken 2 dose of PO vancomycin. He endorsed some mild dyspnea 2/2 abdominal restriction. Otherwise, denied F/C, CP, abd and back pain, N/V, hematuria, melena, hematochezia, dysuria. Patient was seen by our stroke team, NIHSS 3-4. Review of systems: Total 12 point review of systems is negative except as I have mentioned above Personal History Past Medical History: Diagnosis Date Diabetes mellitus High risk medication use Melanoma in situ of lip Osteopenia Rheumatoid arthritis with rheumatoid factor of multiple sites without organ or systems involvement Oncology Problem List: Malignant melanoma (12/24/2023; Status: Active) Oncology/Hematology History No history exists. No past surgical history on file. Family History: family history includes Arthritis in an other family member. Social History: reports that he has quit smoking. His smoking use included cigarettes. He has neverused smokeless tobacco. He reports that he does not currently use alcohol. He reports that he does not use drugs. Social History Social History Narrative Not on file Medications: Available home medication information reviewed. Idyssfxdswsul-Qoyqwuig-Vjqtyxw, albuterol sulfate HFA, apixaban, bumetanide, carvedilol, doxazosin,naproxen sodium, polyethylene glycol, potassium chloride, pravastatin, predniSONE, sulfaSALAzine, valsartan-hydrochlorothiazide, and verapamil ER No Known Allergies Objective Objective Vital Signs: Temp: [98.4 ??F (36.9 ??C)] 98.4 ??F (36.9 ??C) Heart Rate: [61] 61 Resp: [18] 18 BP: (111)/(61) 111/61 Flow (L/min) (Oxygen Therapy): [2] 2 General: Well nourished, NAD Head: Normocephalic, atraumatic Eyes: Sclerae appear normal. Pupils equally round ENT: Nares appear normal, no drainage. Moist oral mucosa Neck: No restricted ROM. Trachea midline CV: RRR. No M/R/G. No JVD Lungs: CTAB. No wheezing, rhonchi, or rales. Symmetric expansion Abdomen: Bowel sounds present. Nondistended, soft, nontender Extremities: No cyanosis or clubbing. No edema. Skin: No rashes and normal coloration. Warm and dry. Neuro: CN II-XII grossly intact. Sensation intact. AAOx3; RLE 2/5, 5/5 in all other extremities. Clear speech, answers all questions, follows all commands, no pronator drift Psych: Normal mood and affect I have personally reviewed labs and tests showing: LAB RESULTS: Microbiology Results (last 10 days) No results found for the last 240 hours. No radiology results from the last 24 hrs CXR report from OSH was no acute cardiopulmonary process My personal interpretation of the EKG is 81 Afib, no ischemic ST/T abnormalities. This case was discussed with the ER attending physician. Assessment & Plan Assessment & Plan Stroke-like symptoms RA (rheumatoid arthritis) Immunosuppression due to drug therapy Malignant melanoma Chronic anticoagulation Type 2 diabetes mellitus with hyperglycemia, without long-term current use of insulin Stenosis of left carotid artery PAF (paroxysmal atrial fibrillation) Primary hypertension Chronic diastolic CHF (congestive heart failure) C. difficile diarrhea LICA Stenosis RLE && RUE Weakness - CTB reported no acute intracranial pathology - CTA H/N revealed revealed high grade LICA stenosis (>80%) and moderate to high grade R DULCE stenosis (60-70%) - Pending: MRI Brain WO, Carotid US, Echo, A1c, lipid panel - Resume Aspirin, Eliquis, statin - STAT CTB for any neurologic decline - PT/OT/ST - Neuro following - Allow for normal BP goals secondary to the length of symptoms, management per Hospital Medicine Team C.Diff positive diarrhea, POA - C/w PO Vancomycin PAF - Chronic, rate-controlled in Afib - C/w verapamil, coreg, eliquis Chronic diastolic CHF - Compensated - C/w Bumex HTN - Chronic, controlled - Resume home coreg, verapamil DM2 - Chronic, with hyperglycemia - ISS, check A1c, accuchecks RA - Chronic - Maintained on sulfasalazine 500 BID, prednisone 2 BPH - Chronic Resume doxazosin CAD - Chronic, no CP/ACS - EKG nonischemic - C/w aspirin, statin VTE PPx: Eliquis Diet: Diet: Cardiac, Diabetic; Low Sodium (2g); Consistent Carbohydrate; Fluid Consistency: Thin (IDDSI 0) CODE STATUS: Code Status and Medical Interventions: CPR (Attempt to Resuscitate); Full Support Ordered at: 03/03/25 1249 Code Status (Patient has no pulse and is not breathing): CPR (Attempt to Resuscitate) Medical Interventions (Patient has pulse or is breathing): Full Support Level Of Support Discussed With: Patient Expected Discharge TBD Expected discharge date/ time has not been documented. Mack Prince DO 03/03/25 documented in this encounter Consult Notes * Bonifacio Carbajal RN - 03/05/2025 11:29 AM EDT Consult for diabetes education received Chart reviewed. Pt was seen at bedside today. Permission given for visit. Discussed and taught patient about type 2 diabetes self-management, risk factors, and importance ofblood glucose control to reduce complications. Target blood glucose readings and A1c goals per ADA were reviewed. Reviewed with patient current A1c 6.62 and discussed its significance. Reviewed the following ADA survival skill concepts with pt: Meal planning: Discussed pts current eating pattern and potential strategies to help improve it. Suggested ???the plate method?? as a potential healthy eating plan and reviewed this with pt. Safe medication administration: Reviewed pts current medication regimen. Encouraged pt to take medications as prescribed and contact provider or pharmacist if they are experiencing side effects. Monitoring (timing and technique): Encouraged pt to monitor blood sugar at home 1+ times per day and to call PCP if blood sugar is trending high. Encouraged to keep record of blood glucose readings to take to follow up appointment with PCP. Prevention and treatment of hypoglycemia and hyperglycemia: Signs, symptoms, and treatment of hypoglycemia and hyperglycemia discussed with pt. Reviewed prevention strategies such as consistent eating pattern and taking medications as directed. Pt is able to teach back appropriate treatment of hypoglycemia using the rule of 15s after receiving instruction. Sick day management: Reviewed general sick day guidelines with pt, including drinking plenty of water, keeping simple carbs handy such as jell-o or popsicles, checking blood glucose more often (every2-4 hours or as directed by provider) Encouraged pt to make a sick-day kit at home. Follow-up care: Reviewed importance of ongoing follow-up with provider. Reviewed importance of annual physical exams, annual eye exams, regular dental exams, daily foot examination, and encouraged patient to discuss immunization needs with provider. Pt encouraged to attend scheduled appointments. Not a candidate for the stroke/diabetes class as mri neg per notes Thank you for this consult. Total time spent reviewing chart, preparing education/materials, providing education at bedside, and coordinating care approx 30 minutes. * Mer Dove Parminder, FIRE PREVENTION INSPECTOR - 03/03/2025 11:23 AM EDT Stroke Consult Note Patient Name: Mack Bower Age: 84 y.o. Sex: male : 1940 Primary Care Physician: Shahid Guthrie MD Referring Physician: [facility] TIME STROKE TEAM CALLED: 1043 EST TIME PATIENT ARRIVED: 1518 TIME PATIENT SEEN: 1635 EST (WHEN CALLED FROM FLOOR) Handedness: Right Race: Chief Complaint/Reason for Consultation: LICA Stenosis, RLE Weakness HPI: Mack Bower is an 84 year old male with a PMH significant for AF with chronic Eliquis, T2DM, RA, CHF, HTN, multiple myeloma. He presented to [facility] yesterday with 2 days of complaints including RLE weakness and difficulty with ambulation. CTH was completed in the ED and was reported to be negative for any acute intracranial process. It was noted that the patient at the time had seemingly more bilateral lower extremity weakness. Hospitalist examination revealed today more RLE defined weakness without antigravity strength as well as some now RUE weakness this morning. CTA head and neck were completed showing 80% stenosis in the LICA as well as high-grade stenosis in the R ICA. His home eliquis was continued, however secondary to his noted stenosis he was initiated on ASA and plavix as well at their facility. Secondary to these findings and the inability to complete MRI this weekend transfer to [facility] for higher level of care was requested. On arrival NIH on my examination is noted to be 5. Blood pressure on arrival 110 SYSTOLIC. Speech is fluent and intact. He is alert and oriented and able to follow commands. He does also tell me thathe has had intermittent complaints of bowel incontinence since his symptoms have been present. He has family at the bedside who tell me that Wednesday he was in his normal state of health walking around downtown and that he had a bad day . They report yesterday when they went to check on him that they essentially had to carry him to the car to get him to the hospital for evaluation. He tells me that he has been unable to walk or use his right leg since that time. He also endorses painin the right lower extremity as well. He denies any headache or any other difficulties. He denies any falls. He does report compliance with his medications. He is admitted to the Hospital Medicine Team for further work-up and evaluation. Last Known Normal Date/Time: Approximately 3 Days Review of Systems Constitutional: Positive for activity change and fatigue. Genitourinary: Negative for difficulty urinating. Musculoskeletal: Positive for gait problem. Neurological: Positive for weakness. Negative for speech difficulty, numbness and headaches. Past Medical History: Diagnosis Date Diabetes mellitus High risk medication use Melanoma in situ of lip Osteopenia Rheumatoid arthritis with rheumatoid factor of multiple sites without organ or systems involvement History reviewed. No pertinent surgical history. Family History Problem Relation Age of Onset Arthritis Other Social History Socioeconomic History Marital status: Tobacco Use Smoking status: Former Types: Cigarettes Smokeless tobacco: Never Vaping Use Vaping status: Never Used Substance and Sexual Activity Alcohol use: Not Currently Drug use: Never No Known Allergies Prior to Admission medications Medication Sig Start Date End Date Taking? Authorizing Provider albuterol sulfate HFA 108 (90 Base) MCG/ACT inhaler Inhale 2 puffs Daily. 10/14/24 Chely Cee MD apixaban (ELIQUIS) 5 MG tablet tablet Take 1 tablet by mouth 2 (Two) Times a Day. Chely Cee MD bumetanide (BUMEX) 0.5 MG tablet Take 1 tablet by mouth Every Morning. 12/05/23 Chely Cee MD carvedilol (COREG) 6.25 MG tablet TAKE 1 TABLET BY MOUTH TWICE DAILY MUST ADMINISTER WITH A MEAL/FOOD 04/16/24 Chely Cee MD doxazosin (CARDURA) 4 MG tablet Take 1 tablet by mouth Daily. 04/17/24 Chely Cee MD polyethylene glycol (MiraLax) 17 GM/SCOOP powder Take 17 g by mouth Daily. Chely Cee MD potassium chloride (KLOR-CON M20) 20 MEQ CR tablet Take 1 tablet by mouth Daily. 12/10/23 Chely Cee MD pravastatin (PRAVACHOL) 40 MG tablet Take 1 tablet by mouth Daily. Chely Cee MD predniSONE (DELTASONE) 1 MG tablet Take 2 tablets by mouth Daily. 01/16/25 Ok Richards MD sulfaSALAzine (AZULFIDINE ENTABS) 500 MG EC tablet Take 1 tablet by mouth Take As Directed. 1 tab qd for 3 days, 1 tab bid for 3 days, 2 tabs po bid thereafter for arthritis after meals 01/16/25 Ok Richards MD valsartan-hydrochlorothiazide (DIOVAN-HCT) 320-25 MG per tablet Take 1 tablet by mouth Daily. 12/16/23 Chely Cee MD verapamil ER (VERELAN) 240 MG 24 hr capsule Take 1 capsule by mouth Every 12 (Twelve) Hours. 04/10/24 Chely Cee MD Temp: [98.4 ??F (36.9 ??C)] 98.4 ??F (36.9 ??C) Heart Rate: [61] 61 Resp: [18] 18 BP: (111)/(61) 111/61 Neurological Exam Mental Status Alert. Oriented to person, place, time and situation. Oriented to person, place, and time. Speech is normal. Language is fluent with no aphasia. Cranial Nerves CN II: Visual beltran full to confrontation. CN III, IV, : Extraocular movements intact bilaterally. Pupils equal round and reactive to light bilaterally. CN V: Right: Facial sensation is normal. Left: Facial sensation is normal on the left. CN VII: Right: There is no facial weakness. Left: There is no facial weakness. CN VIII: Hearing appears to be intact bilaterally . CN IX, X: Right: Palate is normal. Left: Palate is normal. Motor Decreased muscle bulk throughout. No fasciculations present. Normal muscle tone. RLE 2/5 RUE 4/5. Sensory Light touch is normal in upper and lower extremities. Coordination No overt ataxia or dysmetria. Gait Not observed. Physical Exam Constitutional: General: He is not in acute distress. Appearance: He is obese. HENT: Head: Normocephalic. Mouth/Throat: Pharynx: Oropharynx is clear. Eyes: Extraocular Movements: Extraocular movements intact. Pupils: Pupils are equal, round, and reactive to light. Abdominal: General: Abdomen is flat. Musculoskeletal: General: Normal range of motion. Cervical back: Normal range of motion. Skin: General: Skin is warm and dry. Findings: Lesion present. Neurological: Mental Status: He is alert and oriented to person, place, and time. Sensory: No sensory deficit. Motor: Weakness present. Psychiatric: Mood and Affect: Mood normal. Speech: Speech normal. Behavior: Behavior normal. Acute Stroke Data Thrombolytic Inclusion / Exclusion Criteria Time: 18:41 EDT Person Administering Scale: Mer Dove APRN YES NO INCLUSION CRITERIA CLASS I [] [x] Suspected diagnosis of acute ischemic stroke with measureable neurological deficit. Low NIHSS with disabling stroke symptoms. [] [x] Onset of stroke symptoms < 3 hours before beginning treatment >/ 18 years old Stroke symptom onset = time patient was last seen well or without symptoms (LKW) [] [x] Onset of symptoms between 3-4.5 hours: >/= 80 years old (safe Class IIa) with history of both diabetes and prior CVA (reasonable Class IIb) AND NIHSS </= 25 *If not eligible for IV Thrombolytic consider neuro intervention for LKW within 24 hours YES NO EXCLUSION CRITERIA (CONTRAINDICATIONS) CLASS III EVIDENCE HARM [] [] Blood pressure >185/110 medically refractory to IV medications [] [] Active bleeding at a non-compressible site [] [] Active intracranial hemorrhage (ICH) [] [] Symptoms suggestive of subarachnoid hemorrhage (SAH) [] [] GI bleed within 21 days [] [] Ischemic stroke within 3 months [] [] Severe head trauma within 3 months [] [] Intracranial or intraspinal surgery within 3 months [] [] Current GI malignancy [] [] Intracranial neoplasm [] [] Infective endocarditis [] [] Aortic arch dissection [] [] Active coagulopathy with INR >1.7, platelets <100,000, PTT > 40 sec, PT > 15 sec *For warfarin, administration can begin before blood tests resulted. Discontinue for above values. [] [] Treatment dose* of LMWH (Lovenox) in last 24 hours *prophylactic dosages are not a contraindication [] [] Concurrent use of antiplatelet agents' glycoprotein inhibitors IIb/IIIa (Integrilin, etc.) [] [] Thrombin or factor Xa inhibitors (Eliquis, Xarelto, Arixtra) taken in last 48 hours YES NO CLASS II: AIS WITH THE FOLLOWING CONDITIONS - TREATMENT RISKS SHOULD BE WEIGHED AGAINST POSSIBLE BENEFITS. [] [] Major trauma in last 14 days, recent major surgery in last 14 days, intracranial arterial dissection, giant unruptured and unsecured intracranial aneurysm, pericarditis [] [] The risks, benefits, and alternatives have been discussed with the patient or family related to the administration of IV thrombolytic therapy for stroke symptoms. [] [] I have discussed and reviewed the patient's case and imaging with the attending prior to IV thrombolytic therapy. TIME NA Time IV thrombolytic administered Hospital Meds: Scheduled- apixaban, 5 mg, Oral, Q12H [START ON 03/04/2025] aspirin, 81 mg, Oral, Daily Or [START ON 03/04/2025] aspirin, 300 mg, Rectal, Daily atorvastatin, 80 mg, Oral, Nightly melatonin, 5 mg, Oral, Nightly sodium chloride, 10 mL, Intravenous, Q12H sodium chloride, 10 mL, Intravenous, Q12H vancomycin, 125 mg, Oral, Q6H Infusions- Pharmacy Consult, PRNs- acetaminophen aluminum-magnesium hydroxide-simethicone Calcium Replacement - Follow Nurse / BPA Driven Protocol Magnesium Standard Dose Replacement - Follow Nurse / BPA Driven Protocol ondansetron Pharmacy Consult Phosphorus Replacement - Follow Nurse / BPA Driven Protocol Potassium Replacement - Follow Nurse / BPA Driven Protocol sodium chloride sodium chloride sodium chloride sodium chloride Functional Status Prior to Current Stroke/[place] Score: 1 NIH Stroke Scale Time: 18:41 EDT Person Administering Scale: Mer Dove APRN 1a Level of consciousness: 0=alert; keenly responsive 1b. LOC questions: 0=Answers both questions correctly 1c. LOC commands: 0=Performs both tasks correctly 2. Best Gaze: 0=normal 3. Visual: 0=No visual loss 4. Facial Palsy: 0=Normal symmetric movement 5a. Motor left arm: 0=No drift, limb holds 90 (or 45) degrees for full 10 seconds 5b. Motor right arm: 1=Drift, limb holds 90 (or 45) degrees but drifts down before full 10 seconds:does not hit bed 6a. motor left le=Drift, limb holds 90 (or 45) degrees but drifts down before full 10 seconds: does not hit bed 6b Motor right le=No effort against gravity, limb falls 7. Limb Ataxia: 0=Absent 8. Sensory: 0=Normal; no sensory loss 9. Best Language: 0=No aphasia, normal 10. Dysarthria: 0=Normal 11. Extinction and Inattention: 0=No abnormality Total: 5 Results Reviewed: I have personally reviewed current lab, radiology, and data and agree with results. OSH: CTA head and neck: 03/02/2025 - High-grade stenosis greater than 80% at the origin of the left ICA -Moderate to high-grade stenosis at the origin of the right ICA CT head without contrast: 03/02/2025 - Negative for any acute intracranial abnormality TTE: 03/02/2025 - Normal left ventricular size LVEF 60% Right ventricle mildly dilated Left atrium mildly dilated, right atrium mildly dilated No color Doppler evidence of intratrial shunt No aortic regurgitation noted No evidence of mitral valve stenosis, trace regurgitation present Assessment/Plan: 84 year old male with multiple vascular risk factors who presented to [facility] with complaints of RLE weakness and gait instability. CTH was completed and negative for any acute intracranial process. CTA head and neck showed LICA stenosis of approximately 80%. He is not deemed denisse an appropriate IV thrombolytic therapy candidate secondary to extended LKW. Not deemed to be an emergent endovascular intervention candidate at this time as any benefit would be outweighed by riskat this time. Antiplatelet EDITOR IN CHIEF: ASA/PLAVIX (ADDED AT [facility]) Anticoagulant EDITOR IN CHIEF: ELIQUIS LICA Stenosis RLE && RUE Weakness - CVA orderset, de-escalate as appropriate - Bedside Dysphagia Screening prior to any PO intake - IF passes appropriate for a cardiac diabetic diet - NIHSS && neurochecks per protocol - STAT CTH for any neurologic decline - PT OT YOUTH ASSOCIATE per their recommendations - Allow for normal BP goals secondary to the length of symptoms, management per Hospital Medicine Team - MRI brain wo contrast, routine - TTE completed at OSH, results above - A1c and FLP in AM - Lipitor 80mg nightly - Continue home Eliquis - Continue ASA 81mg daily - Discontinue recently added Plavix, no need for triple therapy at this time - Bilateral CUS, routine - MRI lumbar spine without contrast, routine (secondary to incontinent episodes) Stroke Neurology will continue to follow. Plan of care discussed with Hospital Medicine Team as well as Dr. Jean Baptiste. Thanks for the consult in the care of this patient. Please call with any other questions or concerns. Mer Dove APRN Stroke Neurology March 03, 2025 documented in this encounter Nursing Notes * Karime Chi PTA - 03/08/2025 9:37 AM EDT Goal Outcome Evaluation: Plan of Care Reviewed With: patient Progress: no change Outcome Evaluation: patient completed rolling side to side with max assist x1 for placement of liftsling for safe transfer to recliner, donned brief for OOB activity, B LE ROM completed with assist,limited B knee ROM d/t pain. Bed>recliner via lift for safety, unable to attempt sitting in recliner but patient unable to tolerate leg rest completely down d/t pain. Sit<>stand/moiblity unable to be assessed today d/t increased complaints of pain. Recommend SNF at D/C for best functional outcome when medically appropriate. * Amira Dale RN - 03/08/2025 3:55 AM EDT Problem: Adult Inpatient Plan of Care Goal: Plan of Care Review Outcome: Progressing Goal: Patient-Specific Goal (Individualized) Outcome: Progressing Goal: Absence of Hospital-Acquired Illness or Injury Outcome: Progressing Intervention: Identify and Manage Fall Risk Recent Flowsheet Documentation Taken 03/08/2025 0200 by Amira Dale RN Safety Promotion/Fall Prevention: activity supervised assistive device/personal items within reach clutter free environment maintained room organization consistent safety round/check completed Taken 03/08/2025 0000 by Amira Dale RN Safety Promotion/Fall Prevention: activity supervised assistive device/personal items within reach clutter free environment maintained room organization consistent safety round/check completed Taken 03/07/2025 2200 by Amira Dale RN Safety Promotion/Fall Prevention: activity supervised assistive device/personal items within reach clutter free environment maintained room organization consistent safety round/check completed Taken 03/07/2025 2000 by Amira Dale RN Safety Promotion/Fall Prevention: activity supervised assistive device/personal items within reach clutter free environment maintained room organization consistent safety round/check completed Intervention: Prevent Skin Injury Recent Flowsheet Documentation Taken 03/08/2025 0200 by Amira Dale RN Body Position: left position maintained Skin Protection: incontinence pads utilized Taken 03/08/2025 by Amira Dale RN Body Position: supine legs elevated Taken 03/07/20252199 by Amira Dale RN Body Position: right position maintained Skin Protection: incontinence pads utilized drying agents applied Taken 03/07/20251999 by Amira Dale RN Body Position: left position maintained Skin Protection: incontinence pads utilized drying agents applied Intervention: Prevent and Manage VTE (Venous Thromboembolism) Risk Recent Flowsheet Documentation Taken 03/08/2025 by Amira Dale RN VTE Prevention/Management: SCDs (sequential compression devices) off patient refused intervention Taken 03/07/20251999 by Amira Dale RN VTE Prevention/Management: SCDs (sequential compression devices) off patient refused intervention Intervention: Prevent Infection Recent Flowsheet Documentation Taken 03/08/2025 0200 by Amira Dale RN Infection Prevention: hand hygiene promoted environmental surveillance performed rest/sleep promoted Taken 03/08/2025 by Amira Dale RN Infection Prevention: hand hygiene promoted rest/sleep promoted environmental surveillance performed Taken 03/07/20252199 by Amira Dale RN Infection Prevention: hand hygiene promoted rest/sleep promoted environmental surveillance performed Taken 03/07/20251999 by Amira Dale RN Infection Prevention: hand hygiene promoted rest/sleep promoted environmental surveillance performed Goal: Optimal Comfort and Wellbeing Outcome: Progressing Intervention: Monitor Pain and Promote Comfort Recent Flowsheet Documentation Taken 03/07/20252202 by Amira Dale RNsubstation technician Interventions: pain medication given Taken 03/07/20252199 by Amira Dale RNsubstation technician Interventions: quiet environment facilitated relaxation techniques promoted pain medication given Taken 03/07/20251999 by Amira Dale RNsubstation technician Interventions: quiet environment facilitated relaxation techniques promoted Intervention: Provide Person-Centered Care Recent Flowsheet Documentation Taken 03/08/2025 by Amira Dale RN Trust Relationship/Rapport: care explained choices provided questions answered questions encouraged thoughts/feelings acknowledged Taken 03/07/20251999 by Amira Dale RN Trust Relationship/Rapport: care explained choices provided thoughts/feelings acknowledged questions answered questions encouraged Goal: Readiness for Transition of Care Outcome: Progressing Problem: Skin Injury Risk Increased Goal: Skin Health and Integrity Outcome: Progressing Intervention: Optimize Skin Protection Recent Flowsheet Documentation Taken 03/08/2025 0200 by Amira Dale RN Activity Management: activity encouraged Pressure Reduction Techniques: frequent weight shift encouraged heels elevated off bed pressure points protected weight shift assistance provided Head of Bed (HOB) Positioning: HOB elevated Pressure Reduction Devices: pressure-redistributing mattress utilized positioning supports utilized heel offloading device utilized Skin Protection: incontinence pads utilized Taken 03/08/2025 0000 by Amira Dale RN Activity Management: activity encouraged Head of Bed (HOB) Positioning: HOB elevated Taken 03/07/2025 2200 by Amira Dale RN Activity Management: activity encouraged Pressure Reduction Techniques: frequent weight shift encouraged heels elevated off bed pressure points protected weight shift assistance provided Head of Bed (HOB) Positioning: HOB elevated Pressure Reduction Devices: pressure-redistributing mattress utilized positioning supports utilized heel offloading device utilized Skin Protection: incontinence pads utilized drying agents applied Taken 03/07/20251999 by Amira Dale RN Activity Management: activity encouraged Pressure Reduction Techniques: frequent weight shift encouraged heels elevated off bed pressure points protected weight shift assistance provided Head of Bed (HOB) Positioning: HOB elevated Pressure Reduction Devices: pressure-redistributing mattress utilized positioning supports utilized heel offloading device utilized Skin Protection: incontinence pads utilized drying agents applied Problem: Stroke, Ischemic (Includes Transient Ischemic Attack) Goal: Optimal Coping Outcome: Progressing Intervention: Support Psychosocial Response to Stroke Recent Flowsheet Documentation Taken 03/08/2025 0000 by Amira Dale RN Supportive Measures: active listening utilized relaxation techniques promoted Taken 03/07/20251999 by Amira Dale RN Supportive Measures: active listening utilized relaxation techniques promoted Goal: Effective Bowel Elimination Outcome: Progressing Intervention: Promote Effective Bowel Elimination Recent Flowsheet Documentation Taken 03/07/20251999 by Amira Dale RN Bowel Elimination Management: relaxation techniques promoted toileting offered Goal: Optimal Cerebral Tissue Perfusion Outcome: Progressing Intervention: Protect and Optimize Cerebral Perfusion Recent Flowsheet Documentation Taken 03/08/2025 0000 by Amira Dale RN Cerebral Perfusion Promotion: blood pressure monitored Taken 03/07/20251999 by Amira Dale RN Cerebral Perfusion Promotion: blood pressure monitored Goal: Optimal Cognitive Function Outcome: Progressing Goal: Improved Communication Skills Outcome: Progressing Intervention: Optimize Communication Skills Recent Flowsheet Documentation Taken 03/08/2025 by Amira Dale RN Communication Enhancement Strategies: call light answered in person device use encouraged Taken 03/07/20251999 by Amira Dale RN Communication Enhancement Strategies: call light answered in person device use encouraged Goal: Optimal Functional Ability Outcome: Progressing Intervention: Optimize Functional Ability Recent Flowsheet Documentation Taken 03/08/2025199 by Amira Dale RN Activity Management: activity encouraged Taken 03/08/2025 by Amira Dale RN Activity Management: activity encouraged Taken 03/07/20252199 by Amira Dale RN Activity Management: activity encouraged Taken 03/07/20251999 by Amira Dale RN Activity Management: activity encouraged Goal: Optimal Nutrition Intake Outcome: Progressing Goal: Effective Oxygenation and Ventilation Outcome: Progressing Intervention: Optimize Oxygenation and Ventilation Recent Flowsheet Documentation Taken 03/08/2025199 by Amira Dale RN Head of Bed ([facility]) Positioning: [facility] elevated Airway/Ventilation Management: oxygen therapy provided Taken 03/08/2025 by Amira Dale RN Head of Bed ([facility]) Positioning: [facility] elevated Airway/Ventilation Management: oxygen therapy provided Taken 03/07/20252199 by Amira Dale RN Head of Bed ([facility]) Positioning: [facility] elevated Airway/Ventilation Management: oxygen therapy provided Taken 03/07/20251999 by Amira Dale RN Head of Bed ([facility]) Positioning: [facility] elevated Airway/Ventilation Management: oxygen therapy provided Goal: Improved Sensorimotor Function Outcome: Progressing Intervention: Optimize Range of Motion, Motor Control and Function Recent Flowsheet Documentation Taken 03/08/2025199 by Amira Dale RN Positioning/Transfer Devices: pillows in use Taken 03/08/2025 0000 by Amira Dale RN Positioning/Transfer Devices: pillows in use Taken 03/07/20252199 by Amira Dale RN Positioning/Transfer Devices: pillows in use Taken 03/07/20251999 by Amira Dale RN Positioning/Transfer Devices: pillows in use Range of Motion: ROM (range of motion) performed Intervention: Optimize Sensory and Perceptual Ability Recent Flowsheet Documentation Taken 03/08/2025199 by Amira Dale RN Pressure Reduction Techniques: frequent weight shift encouraged heels elevated off bed pressure points protected weight shift assistance provided Pressure Reduction Devices: pressure-redistributing mattress utilized positioning supports utilized heel offloading device utilized Taken 03/07/20252199 by Amira Dale RN Pressure Reduction Techniques: frequent weight shift encouraged heels elevated off bed pressure points protected weight shift assistance provided Pressure Reduction Devices: pressure-redistributing mattress utilized positioning supports utilized heel offloading device utilized Taken 03/07/20251999 by Amira Dale RN Pressure Reduction Techniques: frequent weight shift encouraged heels elevated off bed pressure points protected weight shift assistance provided Pressure Reduction Devices: pressure-redistributing mattress utilized positioning supports utilized heel offloading device utilized Goal: Safe and Effective Swallow Outcome: Progressing Goal: Effective Urinary Elimination Outcome: Progressing Problem: Fall Injury Risk Goal: Absence of Fall and Fall-Related Injury Outcome: Progressing Intervention: Identify and Manage Contributors Recent Flowsheet Documentation Taken 03/08/2025199 by Amira Dale RN Medication Review/Management: medications reviewed Taken 03/08/2025 by Amira Dale RN Medication Review/Management: medications reviewed Taken 03/07/20252199 by Amira Dale RN Medication Review/Management: medications reviewed Taken 03/07/20251999 by Amira Dale RN Medication Review/Management: medications reviewed Intervention: Promote Injury-Free Environment Recent Flowsheet Documentation Taken 03/08/2025199 by Amira Dale RN Safety Promotion/Fall Prevention: activity supervised assistive device/personal items within reach clutter free environment maintained room organization consistent safety round/check completed Taken 03/08/2025 by Amira Dale RN Safety Promotion/Fall Prevention: activity supervised assistive device/personal items within reach clutter free environment maintained room organization consistent safety round/check completed Taken 03/07/20252199 by Amira Dale RN Safety Promotion/Fall Prevention: activity supervised assistive device/personal items within reach clutter free environment maintained room organization consistent safety round/check completed Taken 03/07/20251999 by Amira Dale RN Safety Promotion/Fall Prevention: activity supervised assistive device/personal items within reach clutter free environment maintained room organization consistent safety round/check completed Goal Outcome Evaluation: * Shanique Olguin RN - 03/07/2025 5:20 PM EDT Problem: Adult Inpatient Plan of Care Goal: Plan of Care Review Outcome: Progressing Goal: Patient-Specific Goal (Individualized) Outcome: Progressing Goal: Absence of Hospital-Acquired Illness or Injury Outcome: Progressing Goal: Optimal Comfort and Wellbeing Outcome: Progressing Goal: Readiness for Transition of Care Outcome: Progressing Problem: Skin Injury Risk Increased Goal: Skin Health and Integrity Outcome: Progressing Intervention: Optimize Skin Protection Description: Perform a full pressure injury risk assessment, as indicated by screening, upon admission to care unit.Reassess skin (full inspection and injury risk, including skin temperature, consistency and color) frequently (e.g., scheduled interval, with change in condition) to provide optimal early detection and prevention.Maintain adequate tissue perfusion (e.g., encourage fluid balance; avoid crossing legs, constrictive clothing or devices) to promote tissue oxygenation.Maintain head of bed at lowest degree of elevation tolerated, considering medical condition and other restrictions. Use positioning supports to prevent sliding and friction. Consider low friction textiles.Avoid position ing onto an area that remains reddened or on bony prominences.Minimize incontinence and moisture (e.g., toileting schedule; moisture-wicking pad, diaper or incontinence collection device; skin moisture barrier).Cleanse skin promptly and gently, when soiled, utilizing a pH-balanced cleanser.Relieve and redistribute pressure (e.g., scheduled position changes, weight shifts, use of support surface, district medical examiner repositioning, protective dressing application, use of positioning device, microclimate control, use of [id number] increased activity, such as sitting in a chair at the bedside or early mobilization, when able to tolerate. Avoid prolonged sitting. Recent Flowsheet Documentation Taken 03/07/20251656 by Shanique Olguin, RN Activity Management: up in chair Problem: Stroke, Ischemic (Includes Transient Ischemic Attack) Goal: Optimal Coping Outcome: Progressing Goal: Effective Bowel Elimination Outcome: Progressing Goal: Optimal Cerebral Tissue Perfusion Outcome: Progressing Goal: Optimal Cognitive Function Outcome: Progressing Goal: Improved Communication Skills Outcome: Progressing Goal: Optimal Functional Ability Outcome: Progressing Intervention: Optimize Functional Ability Description: Initiate sitting and standing when able; evaluate and address balance, postural control and fall risk.Assess functional ability, such as ADLs (activities of daily living), mobility safety and independence; involve patient and caregiver/family in goal-setting.Encourage physical activityand optimal functional performance using a multimodal approach.Facilitate functional mobility, suchas bed mobility, transfers and ambulation; progress and retrain as tolerated.Encourage ADLs (activities of daily living), such as self-feeding, hygiene and dressing; provide setup, adaptations, assistance and extra time as needed.Provide repetitive, mobility-task training for gait disturbances; cons ider ankle foot orthosis or functional electrical stimulation if foot drop is present.Promote a safe and accessible environment and effective use of assistive devices and equipment.Pace and cluster activity to balance with rest periods and conserve energy; promote adequate nutrition, sleep and rest.Identify and address body system and performance deficits affecting function, such as cognitive, bal ance, sensorimotor, activity tolerance and visual perception impairments.Consider multimodal therapeutic interventions, such as virtual reality, graded motor imagery, robotic or treadmill training and FES (functional electrical stimulation). Recent Flowsheet Documentation Taken 03/07/2025 165 by Shanique Olguin, RN Activity Management: up in chair Goal: Optimal Nutrition Intake Outcome: Progressing Goal: Effective Oxygenation and Ventilation Outcome: Progressing Goal: Improved Sensorimotor Function Outcome: Progressing Goal: Safe and Effective Swallow Outcome: Progressing Goal: Effective Urinary Elimination Outcome: Progressing Problem: Fall Injury Risk Goal: Absence of Fall and Fall-Related Injury Outcome: Progressing Goal Outcome Evaluation: * Roxann Tavarez OT - 03/07/2025 11:16 AM EDT Goal Outcome Evaluation: Plan of Care Reviewed With: patient, family Progress: no change Outcome Evaluation: No significant change noted with therapy this date. Pt remains below baseline with ADL's and mobility due to decreased strength, activity tolerance, and increased pain limiting independence with ADL's and mobility from baseline status. Recommend continued skilled OT services and transfer to SNF at d/c. Anticipated Discharge Disposition (OT): long term facility * Amira Dale RN - 03/07/2025 3:52 AM EDT Problem: Adult Inpatient Plan of Care Goal: Plan of Care Review Outcome: Progressing Goal: Patient-Specific Goal (Individualized) Outcome: Progressing Goal: Absence of Hospital-Acquired Illness or Injury Outcome: Progressing Intervention: Identify and Manage Fall Risk Recent Flowsheet Documentation Taken 03/07/2025199 by Amira Dale RN Safety Promotion/Fall Prevention: activity supervised assistive device/personal items within reach clutter free environment maintained room organization consistent safety round/check completed Taken 03/07/2025 by Amira Dale RN Safety Promotion/Fall Prevention: activity supervised assistive device/personal items within reach clutter free environment maintained nonskid shoes/slippers when out of bed safety round/check completed room organization consistent Taken 03/06/20252199 by Amira Dale RN Safety Promotion/Fall Prevention: activity supervised assistive device/personal items within reach clutter free environment maintained nonskid shoes/slippers when out of bed room organization consistent safety round/check completed Taken 03/06/20251999 by Amira Dale RN Safety Promotion/Fall Prevention: activity supervised assistive device/personal items within reach clutter free environment maintained nonskid shoes/slippers when out of bed room organization consistent safety round/check completed Intervention: Prevent Skin Injury Recent Flowsheet Documentation Taken 03/07/2025199 by Amira Dale RN Body Position: left position maintained heels elevated Skin Protection: incontinence pads utilized drying agents applied pulse oximeter probe site changed Taken 03/07/2025 by Amira Dale RN Body Position: position maintained heels elevated Taken 03/06/20252199 by Amira Dale RN Body Position: position maintained heels elevated Skin Protection: incontinence pads utilized Taken 03/06/20251999 by Amira Dale RN Body Position: position maintained heels elevated Skin Protection: incontinence pads utilized drying agents applied Intervention: Prevent and Manage VTE (Venous Thromboembolism) Risk Recent Flowsheet Documentation Taken 03/07/2025 by Amira Dale RN VTE Prevention/Management: SCDs (sequential compression devices) off patient refused intervention Taken 03/06/20251999 by Amira Dale RN VTE Prevention/Management: SCDs (sequential compression devices) off patient refused intervention Intervention: Prevent Infection Recent Flowsheet Documentation Taken 03/07/2025199 by Amira Dale RN Infection Prevention: rest/sleep promoted hand hygiene promoted environmental surveillance performed Taken 03/07/2025 0000 by Amira Dale RN Infection Prevention: hand hygiene promoted rest/sleep promoted environmental surveillance performed Taken 03/06/20252199 by Amira Dale RN Infection Prevention: hand hygiene promoted rest/sleep promoted environmental surveillance performed Taken 03/06/20251999 by Amira Dale RN Infection Prevention: hand hygiene promoted rest/sleep promoted environmental surveillance performed Goal: Optimal Comfort and Wellbeing Outcome: Progressing Intervention: Monitor Pain and Promote Comfort Recent Flowsheet Documentation Taken 03/07/2025 0046 by Amira Dale RNsubstation technician Interventions: pain medication given Taken 03/06/20251999 by Amiar Dale RNsubstation technician Interventions: position adjusted quiet environment facilitated Intervention: Provide Person-Centered Care Recent Flowsheet Documentation Taken 03/07/2025 0000 by Amira Dale RN Trust Relationship/Rapport: care explained choices provided thoughts/feelings acknowledged questions answered questions encouraged Taken 03/06/20251999 by Amira Dale RN Trust Relationship/Rapport: care explained choices provided questions answered questions encouraged Goal: Readiness for Transition of Care Outcome: Progressing Problem: Skin Injury Risk Increased Goal: Skin Health and Integrity Outcome: Progressing Intervention: Optimize Skin Protection Recent Flowsheet Documentation Taken 03/07/2025 0200 by Amira Dale RN Activity Management: activity encouraged Pressure Reduction Techniques: frequent weight shift encouraged heels elevated off bed pressure points protected weight shift assistance provided Head of Bed (HOB) Positioning: HOB elevated Pressure Reduction Devices: pressure-redistributing mattress utilized positioning supports utilized heel offloading device utilized Skin Protection: incontinence pads utilized drying agents applied pulse oximeter probe site changed Taken 03/07/2025 by Amira Dale RN Activity Management: activity encouraged Head of Bed (HOB) Positioning: HOB elevated Taken 03/06/20252199 by Amira Dale RN Activity Management: activity encouraged Pressure Reduction Techniques: frequent weight shift encouraged heels elevated off bed pressure points protected weight shift assistance provided Head of Bed (HOB) Positioning: HOB elevated Pressure Reduction Devices: heel offloading device utilized positioning supports utilized pressure-redistributing mattress utilized Skin Protection: incontinence pads utilized Taken 03/06/20251999 by Amira Dale RN Activity Management: activity encouraged Pressure Reduction Techniques: frequent weight shift encouraged heels elevated off bed pressure points protected weight shift assistance provided Head of Bed (HOB) Positioning: HOB elevated Pressure Reduction Devices: heel offloading device utilized positioning supports utilized pressure-redistributing mattress utilized Skin Protection: incontinence pads utilized drying agents applied Problem: Stroke, Ischemic (Includes Transient Ischemic Attack) Goal: Optimal Coping Outcome: Progressing Intervention: Support Psychosocial Response to Stroke Recent Flowsheet Documentation Taken 03/07/2025 by Amira Dale RN Supportive Measures: active listening utilized relaxation techniques promoted Taken 03/06/20251999 by Amira Dale RN Supportive Measures: active listening utilized relaxation techniques promoted Family/Support System Care: self-care encouraged support provided Goal: Effective Bowel Elimination Outcome: Progressing Intervention: Promote Effective Bowel Elimination Recent Flowsheet Documentation Taken 03/06/20251999 by Amira Dale RN Bowel Elimination Management: relaxation techniques promoted toileting offered Goal: Optimal Cerebral Tissue Perfusion Outcome: Progressing Intervention: Protect and Optimize Cerebral Perfusion Recent Flowsheet Documentation Taken 03/07/2025 by Amira Dale RN Cerebral Perfusion Promotion: blood pressure monitored Taken 03/06/20251999 by Amira Dale RN Sensory Stimulation Regulation: care clustered lighting decreased quiet environment promoted Cerebral Perfusion Promotion: blood pressure monitored Goal: Optimal Cognitive Function Outcome: Progressing Intervention: Optimize Cognitive Function Recent Flowsheet Documentation Taken 03/06/20251999 by Amira Dale RN Sensory Stimulation Regulation: care clustered lighting decreased quiet environment promoted Goal: Improved Communication Skills Outcome: Progressing Intervention: Optimize Communication Skills Recent Flowsheet Documentation Taken 03/07/2025 by Amira Dale RN Communication Enhancement Strategies: call light answered in person device use encouraged Taken 03/06/20251999 by Amira Dale RN Communication Enhancement Strategies: call light answered in person device use encouraged Goal: Optimal Functional Ability Outcome: Progressing Intervention: Optimize Functional Ability Recent Flowsheet Documentation Taken 03/07/2025 0200 by Amira Dale RN Activity Management: activity encouraged Taken 03/07/2025 0000 by Amira Dale RN Activity Management: activity encouraged Taken 03/06/20252199 by Amira Dale RN Activity Management: activity encouraged Taken 03/06/20251999 by Amira Dale RN Activity Management: activity encouraged Goal: Optimal Nutrition Intake Outcome: Progressing Goal: Effective Oxygenation and Ventilation Outcome: Progressing Intervention: Optimize Oxygenation and Ventilation Recent Flowsheet Documentation Taken 03/07/2025 0200 by Amira Dale RN Head of Bed (HOB) Positioning: HOB elevated Taken 03/07/2025 by Amira Dale RN Head of Bed ([facility]) Positioning: HOB elevated Airway/Ventilation Management: oxygen therapy provided Taken 03/06/20252199 by Amira Dale RN Head of Bed ([facility]) Positioning: HOB elevated Airway/Ventilation Management: oxygen therapy provided Taken 03/06/20251999 by Amira Dale RN Head of Bed ([facility]) Positioning: [facility] elevated Airway/Ventilation Management: oxygen therapy provided Goal: Improved Sensorimotor Function Outcome: Progressing Intervention: Optimize Range of Motion, Motor Control and Function Recent Flowsheet Documentation Taken 03/07/2025199 by Amira Dale RN Positioning/Transfer Devices: pillows in use Taken 03/07/2025 by Amira Dale RN Positioning/Transfer Devices: pillows in use Range of Motion: active ROM (range of motion) encouraged Taken 03/06/20252199 by Amira Dale RN Positioning/Transfer Devices: pillows in use Taken 03/06/20251999 by Amira Dale RN Positioning/Transfer Devices: pillows in use Range of Motion: active ROM (range of motion) encouraged Intervention: Optimize Sensory and Perceptual Ability Recent Flowsheet Documentation Taken 03/07/2025199 by Amira Dale RN Pressure Reduction Techniques: frequent weight shift encouraged heels elevated off bed pressure points protected weight shift assistance provided Pressure Reduction Devices: pressure-redistributing mattress utilized positioning supports utilized heel offloading device utilized Taken 03/06/20252199 by Amira Dale RN Pressure Reduction Techniques: frequent weight shift encouraged heels elevated off bed pressure points protected weight shift assistance provided Pressure Reduction Devices: heel offloading device utilized positioning supports utilized pressure-redistributing mattress utilized Taken 03/06/20251999 by Amira Dale RN Pressure Reduction Techniques: frequent weight shift encouraged heels elevated off bed pressure points protected weight shift assistance provided Pressure Reduction Devices: heel offloading device utilized positioning supports utilized pressure-redistributing mattress utilized Goal: Safe and Effective Swallow Outcome: Progressing Goal: Effective Urinary Elimination Outcome: Progressing Problem: Fall Injury Risk Goal: Absence of Fall and Fall-Related Injury Outcome: Progressing Intervention: Identify and Manage Contributors Recent Flowsheet Documentation Taken 03/07/2025199 by Amira Dale RN Medication Review/Management: medications reviewed Taken 03/07/2025 0000 by Amira Dale RN Medication Review/Management: medications reviewed Taken 03/06/20252199 by Amira Dale RN Medication Review/Management: medications reviewed Taken 03/06/20251999 by Amira Dale RN Medication Review/Management: medications reviewed Intervention: Promote Injury-Free Environment Recent Flowsheet Documentation Taken 03/07/2025 0200 by Amira Dale RN Safety Promotion/Fall Prevention: activity supervised assistive device/personal items within reach clutter free environment maintained room organization consistent safety round/check completed Taken 03/07/2025 0000 by Amira Dale RN Safety Promotion/Fall Prevention: activity supervised assistive device/personal items within reach clutter free environment maintained nonskid shoes/slippers when out of bed safety round/check completed room organization consistent Taken 03/06/20252199 by Amira Dale RN Safety Promotion/Fall Prevention: activity supervised assistive device/personal items within reach clutter free environment maintained nonskid shoes/slippers when out of bed room organization consistent safety round/check completed Taken 03/06/20251999 by Amira Dale RN Safety Promotion/Fall Prevention: activity supervised assistive device/personal items within reach clutter free environment maintained nonskid shoes/slippers when out of bed room organization consistent safety round/check completed Goal Outcome Evaluation: * Janneth Rowe RN - 03/06/2025 6:40 AM EDT Goal Outcome Evaluation: Pain better controlled with PRN medications, see MAR. MRI cervical/thoracic spine results pending. NIH 6. VSS. POC on going. * Britt Hernandez RN - 03/05/2025 9:12 AM EDT Problem: Stroke, Ischemic (Includes Transient Ischemic Attack) Goal: Optimal Coping Outcome: Progressing Intervention: Support Psychosocial Response to Stroke Recent Flowsheet Documentation Taken 03/05/2025 0800 by Britt Hernandez RN Family/Support System Care: self-care encouraged Goal: Effective Bowel Elimination Outcome: Progressing Goal: Optimal Cognitive Function Outcome: Progressing Goal Outcome Evaluation: * Ashly Fajardo MA,CCC-YOUTH ASSOCIATE - 03/04/2025 4:00 PM EDT Goal Outcome Evaluation: Plan of Care Reviewed With: patient, child Progress: improving Anticipated Discharge Disposition (YOUTH ASSOCIATE): long term facility YOUTH ASSOCIATE Diagnosis: functional speech/language skills, mild, cognitive-linguistic disorder, suspected, baseline (03/04/251527) YOUTH ASSOCIATE Diagnosis Comments: Patient and family report patient is at baseline and deny any questions or concerns related to speech, lang, and cognition. (03/04/251527) * Gretel Antonio, OT - 03/04/2025 10:36 AM EDT Goal Outcome Evaluation: Plan of Care Reviewed With: patient, daughter, sibling Progress: no change Outcome Evaluation: OT eval complete. Pt presents below baseline with ADL performance, functional mobility, elevated pain, and balance deficits. Increased difficulty with progressing BLEs this session. Elevated pain with RLE during bed mobility that continued throughout session. Max Ax2 for STS andbed>chair. Recommend IPOT POC and SNF at D/C. Anticipated Discharge Disposition (OT): long term facility * Lisa Smith, PT - 03/04/2025 10:30 AM EDT Goal Outcome Evaluation: Plan of Care Reviewed With: patient, child, sibling Outcome Evaluation: Pt presents with significant B knee pain impacting all mobility, as well as R hemiparesis, decreased balance and endurance contributing to bed mobility, transfer, and ambulation deficits. Pt required 2-person assist for all mobility this date and was unable to progress to ambulation d/t weakness and knee pain. Pt will benefit from PT to address aforementioned deficits and return to PLOF. PT rec SNF upon dc. Anticipated Discharge Disposition (PT): long term facility * Barbi Mcadams RN - 03/04/2025 5:20 AM EDT Problem: Adult Inpatient Plan of Care Goal: Plan of Care Review Outcome: Progressing Goal: Patient-Specific Goal (Individualized) Outcome: Progressing Goal: Absence of Hospital-Acquired Illness or Injury Outcome: Progressing Intervention: Identify and Manage Fall Risk Recent Flowsheet Documentation Taken 03/04/2025 0200 by Barbi Mcadams RN Safety Promotion/Fall Prevention: activity supervised safety round/check completed muscle strengthening facilitated mobility aid in reach lighting adjusted Taken 03/04/2025 0000 by Barbi Mcadams RN Safety Promotion/Fall Prevention: activity supervised safety round/check completed nonskid shoes/slippers when out of bed muscle strengthening facilitated mobility aid in reach lighting adjusted Taken 03/03/20252142 by Barbi Mcadams RN Safety Promotion/Fall Prevention: activity supervised safety round/check completed nonskid shoes/slippers when out of bed muscle strengthening facilitated mobility aid in reach lighting adjusted Taken 03/03/20251999 by Barbi Mcadams RN Safety Promotion/Fall Prevention: patient off unit Intervention: Prevent Skin Injury Recent Flowsheet Documentation Taken 03/04/2025 0200 by Barbi Mcadams RN Body Position: position changed independently Skin Protection: silicone border foam - heel silicone border foam - sacrum/coccyx skin sealant/moisture barrier applied Taken 03/04/2025 0000 by Barbi Mcadams RN Body Position: position changed independently Skin Protection: skin sealant/moisture barrier applied silicone border foam - sacrum/coccyx silicone border foam - heel Taken 03/03/20252142 by Barbi Mcadams RN Body Position: position changed independently Skin Protection: skin sealant/moisture barrier applied silicone border foam - sacrum/coccyx silicone border foam - heel pulse oximeter probe site changed Intervention: Prevent and Manage VTE (Venous Thromboembolism) Risk Recent Flowsheet Documentation Taken 03/03/20252142 by Barbi Mcadams RN VTE Prevention/Management: SCDs (sequential compression devices) off Intervention: Prevent Infection Recent Flowsheet Documentation Taken 03/04/2025 0200 by Barbi Mcadams RN Infection Prevention: hand hygiene promoted personal protective equipment utilized rest/sleep promoted Taken 03/04/2025 0000 by Barbi Mcadams RN Infection Prevention: hand hygiene promoted personal protective equipment utilized rest/sleep promoted Taken 03/03/2025 2143 by Barbi Mcadams RN Infection Prevention: hand hygiene promoted personal protective equipment utilized rest/sleep promoted Goal: Optimal Comfort and Wellbeing Outcome: Progressing Intervention: Monitor Pain and Promote Comfort Recent Flowsheet Documentation Taken 03/03/2025 2100 by Barbi Mcadams RN Pain Management Interventions: pain medication given Intervention: Provide Person-Centered Care Recent Flowsheet Documentation Taken 03/04/2025 0000 by Barbi Mcadams RN Trust Relationship/Rapport: care explained questions encouraged questions answered Taken 03/03/2025 2143 by Barbi Mcadams RN Trust Relationship/Rapport: care explained questions answered questions encouraged Goal: Readiness for Transition of Care Outcome: Progressing Goal Outcome Evaluation: * Britt Hernandez RN - 03/03/2025 4:12 PM EDT Problem: Stroke, Ischemic (Includes Transient Ischemic Attack) Goal: Optimal Coping Outcome: Progressing Intervention: Support Psychosocial Response to Stroke Recent Flowsheet Documentation Taken 03/03/2025 1505 by Britt Hernandez RN Family/Support System Care: caregiver stress acknowledged self-care encouraged Goal: Effective Bowel Elimination Outcome: Progressing Goal: Optimal Cerebral Tissue Perfusion Outcome: Progressing Problem: Adult Inpatient Plan of Care Goal: Absence of Hospital-Acquired Illness or Injury Intervention: Identify and Manage Fall Risk Recent Flowsheet Documentation Taken 03/03/2025 1600 by Britt Hernandez RN Safety Promotion/Fall Prevention: safety round/check completed Taken 03/03/2025 1505 by Britt Hernandez RN Safety Promotion/Fall Prevention: safety round/check completed Intervention: Prevent Skin Injury Recent Flowsheet Documentation Taken 03/03/2025 1600 by Britt Hernandez RN Body Position: position changed independently Taken 03/03/2025 1505 by Britt Hernandez RN Body Position: position changed independently Intervention: Prevent Infection Recent Flowsheet Documentation Taken 03/03/2025 1600 by Britt Hernandez RN Infection Prevention: environmental surveillance performed hand hygiene promoted Taken 03/03/2025 1505 by Britt Hernandez RN Infection Prevention: environmental surveillance performed hand hygiene promoted Goal: Optimal Comfort and Wellbeing Intervention: Provide Person-Centered Care Recent Flowsheet Documentation Taken 03/03/2025 1505 by Britt Hernandez RN Trust Relationship/Rapport: care explained thoughts/feelings acknowledged Goal: Readiness for Transition of Care Intervention: Mutually Develop Transition Plan Recent Flowsheet Documentation Taken 03/03/2025 1551 by Britt Hernandez RN Transportation Anticipated: car, drives self Patient/Family Anticipated Services at Transition: none Patient/Family Anticipates Transition to: home Taken 03/03/2025 1503 by Britt Hernandez RN Equipment Currently Used at Home: none Problem: Skin Injury Risk Increased Goal: Skin Health and Integrity Intervention: Optimize Skin Protection Recent Flowsheet Documentation Taken 03/03/2025 1600 by Britt Hernandez RN Activity Management: bedrest Head of Bed (HOB) Positioning: HOB elevated Taken 03/03/2025 1505 by Britt Hernandez RN Activity Management: bedrest Head of Bed (HOB) Positioning: HOB elevated Problem: Stroke, Ischemic (Includes Transient Ischemic Attack) Goal: Improved Communication Skills Intervention: Optimize Communication Skills Recent Flowsheet Documentation Taken 03/03/2025 1505 by Britt Hernandez RN Communication Enhancement Strategies: call light answered in person Goal: Optimal Functional Ability Intervention: Optimize Functional Ability Recent Flowsheet Documentation Taken 03/03/2025 1600 by Britt Hernandez RN Activity Management: bedrest Taken 03/03/2025 1505 by Britt Hernandez RN Activity Management: bedrest Goal: Effective Oxygenation and Ventilation Intervention: Optimize Oxygenation and Ventilation Recent Flowsheet Documentation Taken 03/03/2025 1600 by Britt Hernandez RN Head of Bed (HOB) Positioning: HOB elevated Taken 03/03/2025 1505 by Britt Hernandez RN Head of Bed (HOB) Positioning: HOB elevated Goal: Improved Sensorimotor Function Intervention: Optimize Range of Motion, Motor Control and Function Recent Flowsheet Documentation Taken 03/03/2025 1600 by Britt Hernandez RN Positioning/Transfer Devices: in use pillows Taken 03/03/2025 1505 by Britt Hernandez RN Positioning/Transfer Devices: pillows in use Goal Outcome Evaluation: documented in this encounter Miscellaneous Notes * Case Management/Social Work - Sallie Salazar RN - 03/08/2025 10:40 AM EDT Case Management Discharge Note Final Note: Patient's plan is a skilled bed at [facility] today, 03/08. Nurse to call report to [phone]. CM will fax discharge summary when available to [phone]. [facility] ambulance will transport. Transportation can be requested once discharge summary is complete and report has been callled. PCS faxed to [employer]box and on chartlet. Selected Continued Care - Admitted Since 03/03/2025 Destination Coordination complete. Service Provider Services Address Phone Fax Patient Preferred [facility] Nursing Home [address] [place], [place] [id number] -- Durable Medical Equipment No services have been selected for the patient. Dialysis/Infusion No services have been selected for the patient. Home Medical Care No services have been selected for the patient. Therapy No services have been selected for the patient. Community Resources No services have been selected for the patient. Community & DME No services have been selected for the patient. Transportation Services Transportation: Ambulance Ambulance: [facility] Final Discharge Disposition Code: 03 - long term facility (SNF) * Therapy Treatment Note - Karime Chi PTA - 03/08/2025 9:37 AM EDT Images from the original note were not included. Patient Name: Mack Bower : 1940 Today's Date: 03/08/2025 Admit Date: 03/03/2025 Visit Dx: No diagnosis found. Patient Active Problem List Diagnosis Osteopenia High risk medication use RA (rheumatoid arthritis) Immunosuppression due to drug therapy Malignant melanoma Chronic anticoagulation Type 2 diabetes mellitus with hyperglycemia, without long-term current use of insulin Stroke-like symptoms Stenosis of left carotid artery PAF (paroxysmal atrial fibrillation) Primary hypertension Chronic diastolic CHF (congestive heart failure) C. difficile diarrhea Right sided weakness Past Medical History: Diagnosis Date Diabetes mellitus High risk medication use Melanoma in situ of lip Osteopenia Rheumatoid arthritis with rheumatoid factor of multiple sites without organ or systems involvement History reviewed. No pertinent surgical history. General Information Row Name 03/08/25 1020 Physical Therapy Time and Intention Document Type therapy note (daily note) - Mode of Treatment physical therapy - Row Name 03/08/25 1020 General Information Patient Profile Reviewed yes - Existing Precautions/Restrictions fall;other (see comments);no known precautions/restrictions B severe knee pain with all activity, patient reports pre-medicated this am. - Barriers to Rehab medically complex - Row Name 03/08/25 1020 Cognition Orientation Status (Cognition) oriented x 3 - Row Name 03/08/25 1020 Safety Issues/Impairments Affecting Functional Mobility Safety Issues Affecting Function (Mobility) awareness of need for assistance;insight into deficits/self-awareness;sequencing abilities;safety precautions follow-through/compliance - Comment, Safety Issues/Impairments (Mobility) chronic knee pain limitng activity tolerance - User Puckett (r) = Recorded By, (t) = Taken By, (c) = Cosigned By Initials Name Provider Type Karime Chi PTA Physical Therapist [employer] Mobility Row Name 03/08/25 1022 Bed Mobility Rolling Left Will (Bed Mobility) verbal cues;maximum assist (25% patient effort);1 person assist - Rolling Right Will (Bed Mobility) verbal cues;maximum assist (25% patient effort);1 person assist - Assistive Device (Bed Mobility) bed rails;head of bed elevated;repositioning sheet - Comment, (Bed Mobility) patient required increased time and assist to complete rolling side to sideto place lift sling for safe transfer to recliner, patient deferred sit<>stand attempt this date d/t pain(pre-medicated) - [facility] Name 03/08/25 1022 Transfers Comment, (Transfers) deferred d/t pain, limited B knee ROM - [facility] 03/08/25 1022 Bed-Chair Transfer Bed-Chair Will (Transfers) dependent (less than 25% patient effort);2 person assist - Assistive Device (Bed-Chair Transfers) lift device - [facility] 03/08/25 1022 Sit-Stand Transfer Sit-Stand Will (Transfers) unable to assess - [facility] 03/08/25 1022 Gait/Stairs (Locomotion) Will Level (Gait) unable to assess - User Puckett (r) = Recorded By, (t) = Taken By, (c) = Cosigned By Initials Name Provider Type Karime Chi PTA Physical Therapist [employer] Operator Obj/Interventions [facility] Name 03/08/25 1023 Motor Skills Therapeutic Exercise hip;ankle;knee - [facility] 03/08/25 1023 Hip (Therapeutic Exercise) Hip (Therapeutic Exercise) AAROM (active assistive range of motion) - Hip AAROM (Therapeutic Exercise) bilateral;aBduction;aDduction;supine;10 repetitions - [facility] 03/08/25 1023 Knee (Therapeutic Exercise) Knee (Therapeutic Exercise) AAROM (active assistive range of motion) - Knee AAROM (Therapeutic Exercise) bilateral;flexion;extension;supine;5 repetitions only able to tolerate minimal ROM d/t pain/stiffness - [facility] 03/08/25 1023 Ankle (Therapeutic Exercise) Ankle (Therapeutic Exercise) AROM (active range of motion) - Ankle AROM (Therapeutic Exercise) bilateral;dorsiflexion;plantarflexion;supine;10 repetitions - [facility] 03/08/25 1023 Balance Comment, Balance unable to complete sitting balance at edge of chair d/t limited B knee ROM/pain - User Puckett (r) = Recorded By, (t) = Taken By, (c) = Cosigned By Initials Name Provider Type Karime Chi PTA Physical Therapist [employer] Operator Goals/Plan No documentation. Clinical Impression [facility] Name 03/08/25 1025 Pain Pretreatment Pain Rating 8/10 - Posttreatment Pain Rating 8/10 - Pain Location knee - Pain Side/Orientation bilateral - Pain Management Interventions premedicated for activity;exercise or physical activity utilized - Response to Pain Interventions activity and movement patterns unchanged - Row Name 03/08/25 1025 Plan of Care Review Plan of Care Reviewed With patient - Progress no change - Outcome Evaluation patient completed rolling side to side with max assist x1 for placement of lift sling for safe transfer to recliner, donned brief for OOB activity, B LE ROM completed with assist, limited B knee ROM d/t pain. Bed>recliner via lift for safety, unable to attempt sitting in recliner but patient unable to tolerate leg rest completely down d/t pain. Sit<>stand/moiblity unable to be assessed today d/t increased complaints of pain. Recommend SNF at D/C for best functional outcome when medically appropriate. - Row Name 03/08/25 1025 Positioning and Restraints Pre-Treatment Position in bed - Post Treatment Position chair - In Chair reclined;call light within reach;encouraged to call for assist;exit alarm on;with family/caregiver;waffle cushion;on mechanical lift sling;legs elevated - User Puckett (r) = Recorded By, (t) = Taken By, (c) = Cosigned By Initials Name Provider Type Karime Chi PTA Physical Therapist [employer] Operator Outcome Measures Row Name 03/08/25 1029 How much help from another person do you currently need... Turning from your back to your side while in flat bed without using bedrails? 2 - Moving from lying on back to sitting on the side of a flat bed without bedrails? 2 - Moving to and from a bed to a chair (including a wheelchair)? 2 - Standing up from a chair using your arms (e.g., wheelchair, bedside chair)? 1 - Climbing 3-5 steps with a railing? 1 - To walk in hospital room? 1 - AM-PAC 6 Clicks Score (PT) 9 - Highest Level of Mobility Goal Sit at Edge of Bed-3 - [facility] Name 03/08/25 1029 Functional Assessment Outcome Measure Options AM-PAC 6 Clicks Basic Mobility (PT) - User Puckett (r) = Recorded By, (t) = Taken By, (c) = Cosigned By Initials Name Provider Type Karime Chi PTA Physical Therapist [employer] Operator Physical Therapy Education Title: PT OT YOUTH ASSOCIATE Therapies (In Progress) Topic: Physical Therapy (In Progress) Point: Mobility training (In Progress) Learning Progress Summary Patient Acceptance, E, NR by at 03/08/2025 1030 Acceptance, E, VU by KR at 03/04/2025 1055 Family Acceptance, E, VU by KR at 03/04/2025 105 Point: Home exercise program (In Progress) Learning Progress Summary Patient Acceptance, E, NR by at 03/08/2025 1030 Point: Body mechanics (In Progress) Learning Progress Summary Patient Acceptance, E, NR by at 03/08/2025 1030 Acceptance, E, VU by KR at 03/04/2025 1055 Family Acceptance, E, VU by KR at 03/04/2025 105 Point: Precautions (In Progress) Learning Progress Summary Patient Acceptance, E, NR by at 03/08/2025 1030 Acceptance, E, VU by KR at 03/04/2025 105 Family Acceptance, E, VU by KR at 03/04/2025 105 User Puckett Initials Effective Dates Name Provider Type Discipline 02/02/25 - Karime Chi, EDITOR IN CHIEF Physical Therapist [employer] Operator PT KR 07/17/22 - Lisa Smith, PT Physical Therapist PT PT Recommendation and Plan Recommended discharge disposition is based on the functional assessment performed by PT/OT/Speech therapy (as applicable) and may not reflect the medical necessity determined by your provider or services covered by an individual patient's insurance plan or patient resource. Progress: no change Outcome Evaluation: patient completed rolling side to side with max assist x1 for placement of liftsling for safe transfer to recliner, donned brief for OOB activity, B LE ROM completed with assist,limited B knee ROM d/t pain. Bed>recliner via lift for safety, unable to attempt sitting in recliner but patient unable to tolerate leg rest completely down d/t pain. Sit<>stand/moiblity unable to be assessed today d/t increased complaints of pain. Recommend SNF at D/C for best functional outcome when medically appropriate. Time Calculation: PT Charges Row Name 03/08/25 1030 Time Calculation Start Time 0937 - PT Received On 03/08/25 - PT Goal Re-Cert Due Date 03/14/25 - Timed Charges 97916 - PT Therapeutic Exercise Minutes 23 - Total Minutes Timed Charges Total Minutes 23 - Total Minutes 23 - User Puckett (r) = Recorded By, (t) = Taken By, (c) = Cosigned By Initials Name Provider Type Karime Chi PTA Physical Therapist [employer] Operator Therapy Charges for Today Code Description Service Date Service Provider Modifiers Qty [id number] HC PT THER PROC EA 15 MIN 03/08/2025 Karime Chi PTA GP 2 [id number] HC PT THER SUPP EA 15 MIN 03/08/2025 Karime Chi PTA GP 2 PT G-Codes Outcome Measure Options: AM-PAC 6 Clicks Basic Mobility (PT) AM-PAC 6 Clicks Score (PT): 9 AM-PAC 6 Clicks Score (OT): 11 Modified [place] Scale: 5 - Severe disability. Bedridden, incontinent, and requiring constant nursing care and attention. Karime Chi PTA 03/08/2025 * Therapy Treatment Note - Roxann Tavarez OT - 03/07/2025 11:16 AM EDT Images from the original note were not included. Patient Name: Mack Bower : 1940 Today's Date: 03/07/2025 Admit Date: 03/03/2025 Visit Dx: No diagnosis found. Patient Active Problem List Diagnosis Osteopenia High risk medication use RA (rheumatoid arthritis) Immunosuppression due to drug therapy Malignant melanoma Chronic anticoagulation Type 2 diabetes mellitus with hyperglycemia, without long-term current use of insulin Stroke-like symptoms Stenosis of left carotid artery PAF (paroxysmal atrial fibrillation) Primary hypertension Chronic diastolic CHF (congestive heart failure) C. difficile diarrhea Right sided weakness Past Medical History: Diagnosis Date Diabetes mellitus High risk medication use Melanoma in situ of lip Osteopenia Rheumatoid arthritis with rheumatoid factor of multiple sites without organ or systems involvement History reviewed. No pertinent surgical history. General Information Row Name 03/07/25 1151 OT Time and Intention Document Type therapy note (daily note) -JR Mode of Treatment occupational therapy -JR Row Name 03/07/25 1033 General Information Patient Profile Reviewed yes -JR Existing Precautions/Restrictions fall;other (see comments) B severe knee pain with mobility -JR Barriers to Rehab medically complex - Row Name 03/07/25 1159 Cognition Orientation Status (Cognition) oriented x 3 - Row Name 03/07/25 1159 Safety Issues/Impairments Affecting Functional Mobility Safety Issues Affecting Function (Mobility) awareness of need for assistance;insight into deficits/self-awareness;safety precautions follow- through/compliance;sequencing abilities;safety precaution awareness;problem- solving;judgment - Impairments Affecting Function (Mobility) balance;endurance/activity tolerance;strength;motor control;postural/trunk control;range of motion (ROM);pain - User Puckett (r) = Recorded By, (t) = Taken By, (c) = Cosigned By Initials Name Provider Type JR Roxann Tavarez, OT Occupational Therapist Mobility/ADL's Row Name 03/07/25 1200 Bed Mobility Bed Mobility rolling left;rolling right - Rolling Left Will (Bed Mobility) maximum assist (25% patient effort);verbal cues -JR Rolling Right Will (Bed Mobility) maximum assist (25% patient effort);verbal cues - Assistive Device (Bed Mobility) bed rails;repositioning sheet - Comment, (Bed Mobility) Pt required increased time and verbal cues for rolling L/R to place lift sling. Pt with increased knee pain with movement this date - Row Name 03/07/25 1200 Transfers Transfers bed-chair transfer - Row Name 03/07/25 1200 Bed-Chair Transfer Bed-Chair Will (Transfers) dependent (less than 25% patient effort) - Assistive Device (Bed-Chair Transfers) lift device - Row Name 03/07/25 1200 Sit-Stand Transfer Sit-Stand Will (Transfers) maximum assist (25% patient effort);2 person assist;verbal cues - Assistive Device (Sit-Stand Transfers) walker, front-wheeled - Comment, (Sit-Stand Transfer) Pt required 2 attempts for STS from chair with verbal cues, increasedtime, verbal cues and assist for pre-stand positioning. Pt able to come to full stand with second attempt and maintain standing for short period. - Row Name 03/07/25 1200 Activities of Daily Living BADL Assessment/Intervention grooming - Row Name 03/07/25 1200 Hygiene Care Oral Care oral rinse provided - Row Name 03/07/25 1200 Grooming Assessment/Training Will Level (Grooming) hair care, combing/brushing;oral care regimen;wash face, hands;set up-JR Position (Grooming) supported sitting -JR User Puckett (r) = Recorded By, (t) = Taken By, (c) = Cosigned By Initials Name Provider Type Roxann Curiel, OT Occupational Therapist Obj/Interventions Row Name 03/07/25 1203 Balance Balance Assessment sitting static balance;standing dynamic balance -JR Static Sitting Balance contact guard -JR Dynamic Standing Balance maximum assist;2-person assist;verbal cues -JR Position/Device Used, Standing Balance walker, rolling -JR User Puckett (r) = Recorded By, (t) = Taken By, (c) = Cosigned By Initials Name Provider Type Roxann Curiel OT Occupational Therapist Goals/Plan No documentation. Clinical Impression Row Name 03/07/25 1203 Pain Assessment Pretreatment Pain Rating 0/10 - no pain -JR Posttreatment Pain Rating 4/10 -JR Pain Location knee -JR Pain Side/Orientation bilateral -JR Pain Management Interventions premedicated for activity -JR Response to Pain Interventions activity and movement patterns unchanged - Row Name 03/07/25 1203 Plan of Care Review Plan of Care Reviewed With patient;family -JR Progress no change -JR Outcome Evaluation No significant change noted with therapy this date. Pt remains below baseline with ADL's and mobility due to decreased strength, activity tolerance, and increased pain limiting independence with ADL's and mobility from baseline status. Recommend continued skilled OT services and t ransfer to SNF at d/c. - Row Name 03/07/25 1203 Therapy Plan Review/Discharge Plan (OT) Anticipated Discharge Disposition (OT) long term facility - Row Name 03/07/25 1203 Vital Signs Pre Systolic BP Rehab 130 -JR Pre Treatment Diastolic BP 52 -JR Post Treatment Diastolic BP -- MD in to see pt, therefore not all ending vitals captured -JR Pretreatment Heart Rate (beats/min) 82 -JR Pre SpO2 (%) 90 -JR O2 Delivery Pre Treatment nasal cannula -JR Post SpO2 (%) 96 -JR O2 Delivery Post Treatment nasal cannula -JR Pre Patient Position Supine -JR Intra Patient Position Standing -JR Post Patient Position Sitting -JR Row Name 03/07/25 1203 Positioning and Restraints Pre-Treatment Position in bed -JR Post Treatment Position chair -JR In Chair notified nsg;reclined;call light within reach;encouraged to call for assist;exit alarm on;with family/caregiver;waffle cushion;on mechanical lift sling;with other staff - User Puckett (r) = Recorded By, (t) = Taken By, (c) = Cosigned By Initials Name Provider Type Roxann Curiel OT Occupational Therapist Outcome Measures Row Name 03/07/25 1206 How much help from another is currently needed... Putting on and taking off regular lower body clothing? 1 -JR Bathing (including washing, rinsing, and drying) 1 -JR Toileting (which includes using toilet bed childers or urinal) 1 -JR Putting on and taking off regular upper body clothing 2 -JR Taking care of personal grooming (such as brushing teeth) 3 -JR Eating meals 3 - [facility] 6 Clicks Score (OT) 11 - Row Name 03/07/25 0800 How much help from another person do you currently need... Turning from your back to your side while in flat bed without using bedrails? 2 -JH Moving from lying on back to sitting on the side of a flat bed without bedrails? 2 -JH Moving to and from a bed to a chair (including a wheelchair)? 2 -JH Standing up from a chair using your arms (e.g., wheelchair, bedside chair)? 2 -JH Climbing 3-5 steps with a railing? 1 -JH To walk in hospital room? 1 - [facility] 6 Clicks Score (PT) 10 -JH Highest Level of Mobility Goal Move to Chair/Commode-4 - Row Name 03/07/25 1206 Functional Assessment Outcome Measure Options AM-[facility] 6 Clicks Daily Activity (OT) - User Puckett (r) = Recorded By, (t) = Taken By, (c) = Cosigned By Initials Name Provider Type Roxann Curiel OT Occupational Therapist Antoine Subramanian, RN Registered Nurse Occupational Therapy Education Title: PT OT YOUTH ASSOCIATE Therapies (In Progress) Topic: Occupational Therapy (In Progress) Point: ADL training (Done) Learning Progress Summary Patient Acceptance, E, VU,NR by at 03/07/2025 1116 Comment: role of therapy Acceptance, E, NR by STAR at 03/04/2025 1321 Family Acceptance, E, VU,NR by at 03/07/2025 1116 Comment: role of therapy Acceptance, E, NR by LR at 03/04/2025 1321 Point: Home exercise program (In Progress) Learning Progress Summary Patient Acceptance, E, NR by LR at 03/04/2025 132 Family Acceptance, E, NR by LR at 03/04/20251320 Point: Precautions (In Progress) Learning Progress Summary Patient Acceptance, E, NR by LR at 03/04/2025 1321 Family Acceptance, E, NR by LR at 03/04/2025 132 Point: Body mechanics (Done) Learning Progress Summary Patient Acceptance, E, VU,NR by JR at 03/07/2025 1116 Comment: role of therapy Acceptance, E, NR by LR at 03/04/20251320 Family Acceptance, E, VU,NR by JR at 03/07/2025 1116 Comment: role of therapy Acceptance, E, NR by LR at 03/04/20251320 User Puckett Initials Effective Dates Name Provider Type Discipline 08/21/22 - Roxann Tavarez, OT Occupational Therapist OT LR 04/26/24 - Gretel Antonio, OT Occupational Therapist OT OT Recommendation and Plan Recommended discharge disposition is based on the functional assessment performed by PT/OT/Speech therapy (as applicable) and may not reflect the medical necessity determined by your provider or services covered by an individual patient's insurance plan or patient resource. Plan of Care Review Plan of Care Reviewed With: patient, family Progress: no change Outcome Evaluation: No significant change noted with therapy this date. Pt remains below baseline with ADL's and mobility due to decreased strength, activity tolerance, and increased pain limiting independence with ADL's and mobility from baseline status. Recommend continued skilled OT services and transfer to SNF at d/c. Time Calculation: Time Calculation- OT Row Name 03/07/25 1207 Time Calculation- OT OT Start Time 1116 -JR OT Received On 03/07/25 -JR Timed Charges 45046 - OT Self Care/Mgmt Minutes 33 -JR Total Minutes Timed Charges Total Minutes 33 -JR Total Minutes 33 -JR User Puckett (r) = Recorded By, (t) = Taken By, (c) = Cosigned By Initials Name Provider Type Roxann Tavarez, OT Occupational Therapist Therapy Charges for Today Code Description Service Date Service Provider Modifiers Qty [id number] OT SELF CARE/MGMT/TRAIN EA 15 MIN 03/07/2025 Roxann Tavarez OT GO 2 Roxann Tavarez OT 03/07/2025 * Case Management/Social Work - Sallie Salazar RN - 03/07/2025 10:37 AM EDT Continued Stay Note [place] Patient Name: Mack Bower Today's Date: 03/07/2025 Admit Date: 03/03/2025 Plan: [facility] Discharge Plan Row Name 03/07/25 1037 Plan Plan [facility] Patient/Family in Agreement with Plan yes Plan Comments Spoke with Josy and [facility] can offer patient a skilled bed when he is medically ready for discharge. Updated patient in room. CM will continue to follow. Final Discharge Disposition Code 03 - long term facility (SNF) Discharge Codes No documentation. Expected Discharge Date and Time Expected Discharge Date Expected Discharge Time Mar 08, 2025 Sallie Salazar RN * Case Management/Social Work - Sallie Salazar RN - 03/06/2025 11:01 AM EDT Continued Stay Note [place] Patient Name: Mack Bower Today's Date: 03/06/2025 Admit Date: 03/03/2025 Plan: SNF Discharge Plan Row Name 03/06/25 1100 Plan Plan SNF Patient/Family in Agreement with Plan yes Plan Comments Spoke with patient in room. Therapy recommends inpatient rehab at discharge. He is agreeable and would like a referral to [facility]. Referral called to Josy. CM will continue to follow. Final Discharge Disposition Code 03 - long term facility (SNF) Discharge Codes No documentation. Expected Discharge Date and Time Expected Discharge Date Expected Discharge Time Mar 08, 2025 Sallie Salazar RN * Case Management/Social Work - Sallie Salazar RN - 03/05/2025 9:06 AM EDT Discharge Planning Assessment [facility] Patient Name: Mack Bower Today's Date: 03/05/2025 Admit Date: 03/03/2025 Plan: Home Discharge Needs Assessment Row Name 03/05/25 0902 Living Environment People in Home alone Current Living Arrangements home Potentially Unsafe Housing Conditions none Primary Care Provided by self Provides Primary Care For no one Family Caregiver if Needed sibling(s) Quality of Family Relationships unable to assess Able to Return to Prior Arrangements yes Resource/Environmental Concerns Resource/Environmental Concerns none Transportation Concerns none Transition Planning Patient/Family Anticipates Transition to home Patient/Family Anticipated Services at Transition returned case inspector;rehabilitation services Transportation Anticipated family or friend will provide Discharge Needs Assessment Readmission Within the Last 30 Days no previous admission in last 30 days Equipment Currently Used at Home none Concerns to be Addressed discharge planning Anticipated Changes Related to Illness none Discharge Plan Row Name 03/05/25 09 Plan Plan Home Plan Comments Spoke with patient in room to initiate discharge planning. Patient lives alone in [facility]. Prior to admission, he was independent with ADL's. He has no DME at home and is not current with home health. His PCP is Shahid Guthrie. He does not have an advanced directive. Verified that he has Medicare/[employer]. Mr. Bower has RX coverage and hs his scripts filled at [facility]. His goal is to return home at discharge. Will await therapy recommendations to determine proper discharge placement. CM will continue to follow. Continued Care and Services - Admitted Since 03/03/2025 No active coordination exists. Expected Discharge Date and Time Expected Discharge Date Expected Discharge Time Mar 06, 2025 Demographic Summary Row Name 03/05/25901 General Information Admission Type inpatient Arrived From emergency department Referral Source admission list Reason for Consult discharge planning Preferred Language Irish Functional Status Row Name 03/05/25901 Functional Status Usual Activity Tolerance fair Current Activity Tolerance poor Functional Status, IADL Medications independent Meal Preparation independent Housekeeping independent Laundry independent Shopping independent Psychosocial No documentation. Abuse/Neglect No documentation. Legal No documentation. Substance Abuse No documentation. Patient Forms No documentation. Sallie Salazar RN * Therapy Evaluation - Ashly Fajardo MA,[facility] [place]-[facility] ASSOCIATE - 03/04/2025 4:18 PM EDT Images from the original note were not included. Acute Care - Speech Language Pathology Initial Evaluation [facility] Cognitive-Communication Evaluation Patient Name: Mack Bower : 1940 Today's Date: 03/04/2025 Admit Date: 03/03/2025 Visit Dx: No diagnosis found. Patient Active Problem List Diagnosis Osteopenia High risk medication use RA (rheumatoid arthritis) Immunosuppression due to drug therapy Malignant melanoma Chronic anticoagulation Type 2 diabetes mellitus with hyperglycemia, without long-term current use of insulin Stroke-like symptoms Stenosis of left carotid artery PAF (paroxysmal atrial fibrillation) Primary hypertension Chronic diastolic CHF (congestive heart failure) C. difficile diarrhea Past Medical History: Diagnosis Date Diabetes mellitus High risk medication use Melanoma in situ of lip Osteopenia Rheumatoid arthritis with rheumatoid factor of multiple sites without organ or systems involvement History reviewed. No pertinent surgical history. YOUTH ASSOCIATE Recommendation and Plan Recommended discharge disposition is based on the functional assessment performed by PT/OT/Speech therapy (as applicable) and may not reflect the medical necessity determined by your provider or services covered by an individual patient's insurance plan or patient resource. YOUTH ASSOCIATE Diagnosis: functional speech/language skills, mild, cognitive-linguistic disorder, suspected, baseline (03/04/251527) YOUTH ASSOCIATE Diagnosis Comments: Patient and family report patient is at baseline and deny any questions or concerns related to speech, lang, and cognition. (03/04/251527) [facility] Criteria for Skilled Therapy Interventions Met: no problems identified which require skilled intervention, baseline status (03/04/25 152) Anticipated Discharge Disposition (YOUTH ASSOCIATE): long term facility (03/04/25 1528) Therapy Frequency (YOUTH ASSOCIATE SLC): evaluation only (03/04/25 1528) Progress: improving (03/04/25 1600) YOUTH ASSOCIATE EVALUATION (Last 72 Hours) YOUTH ASSOCIATE SLC Evaluation Row Name 03/04/251527 Communication Assessment/Intervention Document Type evaluation -MD Subjective Information complains of;pain -MD Patient Observations alert;cooperative -MD Patient/Family/Caregiver Comments/Observations Sister, son, and brother present -MD Patient Effort good -MD Comment In collaboration w/ MH -MD Symptoms Noted During/After Treatment none -MD General Information Patient Profile Reviewed yes -MD Pertinent History Of Current Problem LICA stenosis, right sided weakness. PMH RA, multiple myeloma,immunosuppression drug therapy, chronic anticoagulation, DM2, stenosis L carotid artery, PAF, HTN, CHF, CDiff. MRI Brain: 1.No evidence of hemorrhage, mass effect or midline shift. No evidence of recent or acute ischemia. 2.Very mild periventricular and subcortical FLAIR signal changes likely related to chronic microvascular ischemic change. -MD Precautions/Limitations, Vision WFL;for purposes of eval -MD Precautions/Limitations, Hearing WFL;for purposes of eval -MD Prior Level of Function-Communication other (see comments) baseline writing difficulty, per patientand son. -MD Plans/Goals Discussed with patient and family;agreed upon -MD Barriers to Rehab none identified -MD Patient's Goals for Discharge return to home -MD Pain Pretreatment Pain Rating 6/10 -MD Posttreatment Pain Rating 6/10 -MD Pain Location knee -MD Pain Side/Orientation bilateral -MD Pain Management Interventions nursing notified -MD Response to Pain Interventions activity participation with tolerable pain -MD Comprehension Assessment/Intervention Comprehension Assessment/Intervention Auditory Comprehension;Reading Comprehension -MD Auditory Comprehension Assessment/Intervention Auditory Comprehension (Communication) WFL -MD Able to Identify Objects/Pictures (Communication) WFL;pictures of common objects;body part;familiarobjects -MD Answers Questions (Communication) WFL;yes/no;wh questions;personal;simple -MD Able to Follow Commands (Communication) WFL;1-step;2-step -MD Narrative Discourse WFL;conversational level -MD Successful Auditory Strategies (Communication) repetition;decrease environmental distractions -MD Reading Comprehension Assessment/Intervention Reading Comprehension (Communication) WFL -MD Scanning (Reading) WFL;paragraphs;sentences;phrases;words -MD Single Word Level WFL -MD Phrase Level WFL -MD Paragraph Level WFL;other (see comments) intermittently substituted words, but this did not negatively affect overall comprehension. -MD Expression Assessment/Intervention Expression Assessment/Intervention verbal expression;graphic expression -MD Verbal Expression Assessment/Intervention Verbal Expression WFL -MD Automatic Speech (Communication) WFL;response to greeting -MD Repetition WFL;words -MD Confrontational Naming WFL;high frequency -MD Spontaneous/Functional Words WFL;simple -MD Sentence Formulation WFL;simple -MD Conversational Discourse/Fluency WFL -MD Graphic Expression Assessment/Intervention Graphic Expression WFL -MD Graphic Expression to Dictation WFL;words -MD Functional Correspondence WFL -MD Sentence Formulation WFL;simple;other (see comments) spelling deficits present but patient and family report this is PLOF -MD Oral Motor Structure and Function Oral Motor Structure and Function WFL -MD Dentition Assessment edentulous -MD Mucosal Quality moist, healthy -MD Oral Musculature and Cranial Nerve Assessment Oral Motor General Assessment WFL -MD Motor Speech Assessment/Intervention Motor Speech Function WFL -MD Verbal Repetition (Communication) WFL;monosyllabic words;polysyllabic words -MD Conversational Speech (Communication) WFL;simple -MD Speech intelligibility 90%;in quiet environment;in connected speech;with unfamiliar listener -MD Cursory Voice Assessment/Intervention Quality and Resonance (Voice) WFL -MD Cognitive Assessment Intervention- YOUTH ASSOCIATE Cognitive Function (Cognition) mild impairment -MD Orientation Status (Cognition) WFL;person;place;time -MD Memory (Cognitive) WFL;immediate;delayed;related -MD Attention (Cognitive) mild impairment;attention to detail;quiet environment -MD Thought Organization (Cognitive) WFL;concrete divergent -MD Reasoning (Cognitive) WFL;simple -MD Problem Solving (Cognitive) WFL;simple;mild impairment;temporal;multifactorial -MD Functional Math (Cognitive) WFL;simple -MD Executive Function (Cognition) WFL;deficit awareness;judgement -MD Pragmatics (Communication) WFL;turn taking;affect -MD Right Hemisphere Function WFL;deficit awareness -MD YOUTH ASSOCIATE Evaluation Clinical Impressions YOUTH ASSOCIATE Diagnosis functional speech/language skills;mild;cognitive-linguistic disorder;suspected;baseline -MD YOUTH ASSOCIATE Diagnosis Comments Patient and family report patient is at baseline and deny any questions or concerns related to speech, lang, and cognition. -MD [facility] Criteria for Skilled Therapy Interventions Met no problems identified which require skilled intervention;baseline status -MD Functional Impact no impact on function -MD Recommendations Therapy Frequency (YOUTH ASSOCIATE SLC) evaluation only - Anticipated Discharge Disposition (YOUTH ASSOCIATE) long term facility - User Puckett (r) = Recorded By, (t) = Taken By, (c) = Cosigned By Initials Name Effective Dates Ashly Fox MA,[facility]-YOUTH ASSOCIATE 12/21/24 - EDUCATION The patient has been educated in the following areas: Cognitive Impairment Communication Impairment. Time Calculation: Time Calculation- YOUTH ASSOCIATE Row Name 03/04/25 1601 Time Calculation- YOUTH ASSOCIATE YOUTH ASSOCIATE Start Time 1528 -MD YOUTH ASSOCIATE Received On 03/04/25 - Untimed Charges YOUTH ASSOCIATE Eval/Re-eval ST Eval Speech and Production w/ Language - 86403 - 02149-PR Eval Speech and Production w/ Language Minutes 54 -MD Total Minutes Untimed Charges Total Minutes 54 -MD Total Minutes 54 -MD User Puckett (r) = Recorded By, (t) = Taken By, (c) = Cosigned By Initials Name Provider Type Ashly Fox MA,[facility]-YOUTH ASSOCIATE Speech and Language Pathologist Therapy Charges for Today Code Description Service Date Service Provider Modifiers Qty [id number] HC ST EVAL SPEECH AND PROD W LANG 4 03/04/2025 Ashly Fajardo MA,[facility]- YOUTH ASSOCIATE GN 1 Ashly Fajardo MA,[facility]-YOUTH ASSOCIATE 03/04/2025 * Therapy Evaluation - Gretel Antonio, OT - 03/04/2025 10:36 AM EDT Images from the original note were not included. Patient Name: Mack Bower : 1940 Today's Date: 03/04/2025 Admit Date: 03/03/2025 Visit Dx: No diagnosis found. Patient Active Problem List Diagnosis Osteopenia High risk medication use RA (rheumatoid arthritis) Immunosuppression due to drug therapy Malignant melanoma Chronic anticoagulation Type 2 diabetes mellitus with hyperglycemia, without long-term current use of insulin Stroke-like symptoms Stenosis of left carotid artery PAF (paroxysmal atrial fibrillation) Primary hypertension Chronic diastolic CHF (congestive heart failure) C. difficile diarrhea Past Medical History: Diagnosis Date Diabetes mellitus High risk medication use Melanoma in situ of lip Osteopenia Rheumatoid arthritis with rheumatoid factor of multiple sites without organ or systems involvement History reviewed. No pertinent surgical history. General Information Row Name 03/04/25 6874 OT Time and Intention Document Type evaluation -LR Mode of Treatment occupational therapy;co-treatment -LR Row Name 03/04/25 1300 General Information Patient Profile Reviewed yes -LR Prior Level of Function independent:;all household mobility;community mobility;ADL's;bed mobility;gait;transfer -LR Existing Precautions/Restrictions fall;other (see comments) severe B knee pain with mobility -LR Barriers to Rehab medically complex -LR Row Name 03/04/25 130 Living Environment Current Living Arrangements home -LR People in Home alone -LR Row Name 03/04/25 130 Home Main Entrance Number of Stairs, Main Entrance one -LR Stair Railings, Main Entrance none -LR Row Name 03/04/25 1305 Stairs Within Home, Primary Number of Stairs, Within Home, Primary none -LR Row Name 03/04/25 1305 Cognition Orientation Status (Cognition) oriented to;person;time;verbal cues/prompts needed for orientation;place -LR Row Name 03/04/25 130 Safety Issues/Impairments Affecting Functional Mobility Safety Issues Affecting Function (Mobility) safety precautions follow- through/compliance;awareness of need for assistance;safety precaution awareness;problem-solving;sequencing abilities;judgment;insight into deficits/self-awareness -LR Impairments Affecting Function (Mobility) balance;endurance/activity tolerance;strength;pain;motor control;range of motion (ROM);postural/trunk control -LR User Puckett (r) = Recorded By, (t) = Taken By, (c) = Cosigned By Initials Name Provider Type LR Gretel Antonio OT Occupational Therapist Mobility/ADL's Row Name 03/04/25 130 Bed Mobility Bed Mobility supine-sit -LR Supine-Sit Will (Bed Mobility) maximum assist (25% patient effort);2 person assist -LR Assistive Device (Bed Mobility) head of bed elevated;bed rails -LR Row Name 03/04/25 130 Transfers Transfers sit-stand transfer;bed-chair transfer -LR Comment, (Transfers) STSx2 -LR Row Name 03/04/25 130 Bed-Chair Transfer Assistive Device (Bed-Chair Transfers) other (see comments) BUE support -LR Row Name 03/04/25 130 Sit-Stand Transfer Sit-Stand Will (Transfers) maximum assist (25% patient effort);2 person assist -LR Assistive Device (Sit-Stand Transfers) other (see comments) BUE support -LR Row Name 03/04/25 130 Functional Mobility Patient was able to Ambulate no, other medical factors prevent ambulation -LR Row Name 03/04/25 1306 Activities of Daily Living BADL Assessment/Intervention upper body dressing;lower body dressing;grooming -LR Row Name 03/04/25 1306 Upper Body Dressing Assessment/Training Will Level (Upper Body Dressing) don;pajama/robe;moderate assist (50% patient effort) -LR Position (Upper Body Dressing) edge of bed sitting -LR Row Name 03/04/25 1306 Lower Body Dressing Assessment/Training Will Level (Lower Body Dressing) don;socks;dependent (less than 25% patient effort) -LR Position (Lower Body Dressing) sitting up in bed -LR Row Name 03/04/25 1306 Grooming Assessment/Training Will Level (Grooming) wash face, hands;set up -LR Position (Grooming) supported sitting -LR User Puckett (r) = Recorded By, (t) = Taken By, (c) = Cosigned By Initials Name Provider Type LR Gretel Antonio, OT Occupational Therapist Obj/Interventions Row Name 03/04/25 1310 Sensory Assessment (Somatosensory) Sensory Assessment (Somatosensory) UE sensation intact -LR Row Name 03/04/25 1310 Vision Assessment/Intervention Visual Impairment/Limitations WFL -LR Row Name 03/04/25 1310 Range of Motion Comprehensive General Range of Motion bilateral upper extremity ROM WFL -LR Row Name 03/04/25 1310 Strength Comprehensive (MMT) General Manual Muscle Testing (MMT) Assessment upper extremity strength deficits identified -LR Comment, General Manual Muscle Testing (MMT) Assessment BUE grossly 4/5 MMT -LR Row Name 03/04/25 1310 Balance Balance Assessment sitting static balance;sitting dynamic balance;standing static balance;standing dynamic balance -LR Static Sitting Balance contact guard -LR Dynamic Sitting Balance contact guard -LR Position, Sitting Balance unsupported;sitting edge of bed -LR Static Standing Balance maximum assist;2-person assist;verbal cues;non-verbal cues (demo/gesture) -LR Dynamic Standing Balance maximum assist;2-person assist;verbal cues;non-verbal cues (demo/gesture) -LR Position/Device Used, Standing Balance supported;other (see comments) BUE support -LR Balance Interventions sitting;standing;sit to stand;supported;static;dynamic;occupation based/functional task -LR User Puckett (r) = Recorded By, (t) = Taken By, (c) = Cosigned By Initials Name Provider Type Gretel Correa OT Occupational Therapist Goals/Plan Row Name 03/04/25 1319 Transfer Goal 1 (OT) Activity/Assistive Device (Transfer Goal 1, OT) [id number] -LR Will Level/Cues Needed (Transfer Goal 1, OT) minimum assist (75% or more patient effort);other (see comments) x2 -LR Time Frame (Transfer Goal 1, OT) senior care goal (LTG);10 days -LR Progress/Outcome (Transfer Goal 1, OT) new goal;goal ongoing -LR Row Name 03/04/25 131 Dressing Goal 1 (OT) Activity/Device (Dressing Goal 1, OT) upper body dressing -LR Will/Cues Needed (Dressing Goal 1, OT) contact guard required -LR Time Frame (Dressing Goal 1, OT) short term goal (STG);5 days -LR Strategies/Barriers (Dressing Goal 1, OT) sitting EOB -LR Row Name 03/04/25 131 Grooming Goal 1 (OT) Activity/Device (Grooming Goal 1, OT) oral care;wash face, hands -LR Will (Grooming Goal 1, OT) standby assist -LR Time Frame (Grooming Goal 1, OT) short term goal (STG);3 days -LR Strategies/Barriers (Grooming Goal 1, OT) sitting EOB with good sitting balance -LR Progress/Outcome (Grooming Goal 1, OT) goal ongoing;new goal -LR Row Name 03/04/25 131 Therapy Assessment/Plan (OT) Planned Therapy Interventions (OT) activity tolerance training;adaptive equipment training;BADL retraining;occupation/activity based interventions;strengthening exercise;passive ROM/stretching;functional balance retraining;IADL retraining;transfer/mobility retraining;ROM/therapeutic exercise;patient/caregiver education/training -LR User Puckett (r) = Recorded By, (t) = Taken By, (c) = Cosigned By Initials Name Provider Type Gretel Correa OT Occupational Therapist Clinical Impression Row Name 03/04/25 131 Pain Assessment Pain Management Interventions activity modification encouraged;exercise or physical activity utilized;positioning techniques utilized -LR Response to Pain Interventions activity participation with increased pain -LR Row Name 03/04/25 1311 Pain Scale: FACES Pre/Post-Treatment Pain: FACES Scale, Pretreatment 6-->hurts even more -LR Posttreatment Pain Rating 6-->hurts even more -LR Row Name 03/04/25 1311 Plan of Care Review Plan of Care Reviewed With patient;daughter;sibling -LR Progress no change -LR Outcome Evaluation OT eval complete. Pt presents below baseline with ADL performance, functional mobility, elevated pain, and balance deficits. Increased difficulty with progressing BLEs this session. Elevated pain with RLE during bed mobility that continued throughout session. Max Ax2 for STS and bed>chair. Recommend IPOT POC and SNF at D/C. -LR Row Name 03/04/25 1311 Therapy Assessment/Plan (OT) Patient/Family Therapy Goal Statement (OT) PLOF -LR Rehab Potential (OT) good -LR Criteria for Skilled Therapeutic Interventions Met (OT) yes;skilled treatment is necessary -LR Therapy Frequency (OT) daily -LR Predicted Duration of Therapy Intervention (OT) 10 days -LR Row Name 03/04/25 1311 Therapy Plan Review/Discharge Plan (OT) Anticipated Discharge Disposition (OT) long term facility -LR Row Name 03/04/25 1311 Vital Signs Pre Systolic BP Rehab 125 -LR Pre Treatment Diastolic BP 62 -LR Post Systolic BP Rehab 143 -LR Post Treatment Diastolic BP 75 -LR Pre SpO2 (%) -- not connected on screen -LR O2 Delivery Pre Treatment nasal cannula -LR O2 Delivery Intra Treatment nasal cannula -LR O2 Delivery Post Treatment nasal cannula -LR Pre Patient Position Supine -LR Intra Patient Position Standing -LR Post Patient Position Sitting -LR Row Name 03/04/25 1311 Positioning and Restraints Pre-Treatment Position in bed -LR Post Treatment Position chair -LR In Chair notified nsg;reclined;call light within reach;encouraged to call for assist;exit alarm on;waffle cushion;on mechanical lift sling;with family/caregiver;legs elevated -LR User Puckett (r) = Recorded By, (t) = Taken By, (c) = Cosigned By Initials Name Provider Type LR Gretel Antonio, OT Occupational Therapist Outcome Measures Row Name 03/04/25 1320 How much help from another is currently needed... Putting on and taking off regular lower body clothing? 1 -LR Bathing (including washing, rinsing, and drying) 1 -LR Toileting (which includes using toilet bed childers or urinal) 1 -LR Putting on and taking off regular upper body clothing 2 -LR Taking care of personal grooming (such as brushing teeth) 3 -LR Eating meals 3 -LR AM-PAC 6 Clicks Score (OT) 11 -LR Row Name 03/04/25 1054 How much help from another person do you currently need... Turning from your back to your side while in flat bed without using bedrails? 2 -KR Moving from lying on back to sitting on the side of a flat bed without bedrails? 2 -KR Moving to and from a bed to a chair (including a wheelchair)? 2 -KR Standing up from a chair using your arms (e.g., wheelchair, bedside chair)? 2 -KR Climbing 3-5 steps with a railing? 1 -KR To walk in hospital room? 1 -KR AM-PAC 6 Clicks Score (PT) 10 -KR Highest Level of Mobility Goal Move to Chair/Commode-4 -KR Row Name 03/04/25 1320 03/04/25 1054 Modified [place] Scale Pre-Stroke Modified [place] Scale 6 - Unable to determine (UTD) from the medical record documentation -LR 6 - Unable to determine (UTD) from the medical record documentation -KR Modified [place] Scale 5 - Severe disability. Bedridden, incontinent, and requiring constant nursingcare and attention. -LR 5 - Severe disability. Bedridden, incontinent, and requiring constant nursing care and attention. -KR Row Name 03/04/25 1320 03/04/25 1054 Functional Assessment Outcome Measure Options AM-PAC 6 Clicks Daily Activity (OT) -LR Modified [place];AM-PAC 6 Clicks Basic Mobility (PT) -KR User Puckett (r) = Recorded By, (t) = Taken By, (c) = Cosigned By Initials Name Provider Type Lisa Will, PT Physical Therapist LR Gretel Antonio, OT Occupational Therapist Occupational Therapy Education Title: PT OT [employer] Therapies (In Progress) Topic: Occupational Therapy (In Progress) Point: ADL training (In Progress) Learning Progress Summary Patient Acceptance, E, NR by LR at 03/04/2025 1321 Family Acceptance, E, NR by LR at 03/04/2025 1321 Point: Home exercise program (In Progress) Learning Progress Summary Patient Acceptance, E, NR by LR at 03/04/2025 132 Family Acceptance, E, NR by LR at 03/04/2025 132 Point: Precautions (In Progress) Learning Progress Summary Patient Acceptance, E, NR by LR at 03/04/20251320 Family Acceptance, E, NR by LR at 03/04/20251320 Point: Body mechanics (In Progress) Learning Progress Summary Patient Acceptance, E, NR by LR at 03/04/20251320 Family Acceptance, E, NR by LR at 03/04/20251320 User Puckett Initials Effective Dates Name Provider Type Discipline LR 04/26/24 - Gretel Antonio, OT Occupational Therapist OT OT Recommendation and Plan Recommended discharge disposition is based on the functional assessment performed by PT/OT/Speech therapy (as applicable) and may not reflect the medical necessity determined by your provider or services covered by an individual patient's insurance plan or patient resource. Planned Therapy Interventions (OT): activity tolerance training, adaptive equipment training, BADL retraining, occupation/activity based interventions, strengthening exercise, passive ROM/stretching,functional balance retraining, IADL retraining, transfer/mobility retraining, ROM/therapeutic exercise, patient/caregiver education/training Therapy Frequency (OT): daily Plan of Care Review Plan of Care Reviewed With: patient, daughter, sibling Progress: no change Outcome Evaluation: OT eval complete. Pt presents below baseline with ADL performance, functional mobility, elevated pain, and balance deficits. Increased difficulty with progressing BLEs this session. Elevated pain with RLE during bed mobility that continued throughout session. Max Ax2 for STS andbed>chair. Recommend IPOT POC and SNF at D/C. Time Calculation: Evaluation Complexity (OT) Review Occupational Profile/Medical/Therapy History Complexity: expanded/moderate complexity Assessment, Occupational Performance/Identification of Deficit Complexity: 3-5 performance deficits Clinical Decision Making Complexity (OT): detailed assessment/moderate complexity Overall Complexity of Evaluation (OT): moderate complexity Time Calculation- OT Row Name 03/04/251320 Time Calculation- OT OT Start Time 1036 -LR OT Received On 03/04/25 -LR OT Goal Re-Cert Due Date 03/14/25 -LR Untimed Charges OT Eval/Re-eval Minutes 46 -LR Total Minutes Untimed Charges Total Minutes 46 -LR Total Minutes 46 -LR User Puckett (r) = Recorded By, (t) = Taken By, (c) = Cosigned By Initials Name Provider Type LR Gretel Antonio, SAVANNA Occupational Therapist Therapy Charges for Today Code Description Service Date Service Provider Modifiers Qty [id number] OT EVAL MOD COMPLEXITY 4 03/04/2025 Gretel Antonio, SAVANNA GO 1 Gretel Antonio OT 03/04/2025 * Therapy Evaluation - Lisa Smith, PT - 03/04/2025 10:30 AM EDT Images from the original note were not included. Patient Name: Mack Bower : 1940 Today's Date: 03/04/2025 Admit Date: 03/03/2025 Visit Dx: No diagnosis found. Patient Active Problem List Diagnosis Osteopenia High risk medication use RA (rheumatoid arthritis) Immunosuppression due to drug therapy Malignant melanoma Chronic anticoagulation Type 2 diabetes mellitus with hyperglycemia, without long-term current use of insulin Stroke-like symptoms Stenosis of left carotid artery PAF (paroxysmal atrial fibrillation) Primary hypertension Chronic diastolic CHF (congestive heart failure) C. difficile diarrhea Past Medical History: Diagnosis Date Diabetes mellitus High risk medication use Melanoma in situ of lip Osteopenia Rheumatoid arthritis with rheumatoid factor of multiple sites without organ or systems involvement History reviewed. No pertinent surgical history. General Information Row Name 03/04/25 1047 Physical Therapy Time and Intention Document Type evaluation -KR Mode of Treatment physical therapy;co-treatment -KR Row Name 03/04/25 1047 General Information Patient Profile Reviewed yes -KR Prior Level of Function independent:;all household mobility;community mobility;ADL's -KR Existing Precautions/Restrictions fall;other (see comments) severe B knee pain with mobility -KR Barriers to Rehab medically complex -KR Row Name 03/04/25 1047 Living Environment Current Living Arrangements home -KR People in Home alone -KR Row Name 03/04/25 1047 Home Main Entrance Number of Stairs, Main Entrance one -KR Stair Railings, Main Entrance none -KR Row Name 03/04/25 1047 Stairs Within Home, Primary Number of Stairs, Within Home, Primary none -KR Row Name 03/04/25 1047 Cognition Orientation Status (Cognition) oriented to;person;time;verbal cues/prompts needed for orientation;place -KR Row Name 03/04/25 1047 Safety Issues/Impairments Affecting Functional Mobility Safety Issues Affecting Function (Mobility) insight into deficits/self- awareness;awareness of need for assistance;judgment;problem-solving;safety precaution awareness;sequencing abilities;safety precautions follow- through/compliance -KR Impairments Affecting Function (Mobility) balance;endurance/activity tolerance;strength;pain;motor control;range of motion (ROM);postural/trunk control -KR User Puckett (r) = Recorded By, (t) = Taken By, (c) = Cosigned By Initials Name Provider Type Lisa Will PT Physical Therapist Mobility Row Name 03/04/25 1048 Bed Mobility Bed Mobility supine-sit -KR Supine-Sit Will (Bed Mobility) maximum assist (25% patient effort);2 person assist -KR Assistive Device (Bed Mobility) head of bed elevated;bed rails -KR Comment, (Bed Mobility) cues for bedrail use and LE progression. Pt unable to flex R knee d/t severe knee pain. -KR Row Name 03/04/25 1048 Bed-Chair Transfer Bed-Chair Will (Transfers) maximum assist (25% patient effort);2 person assist -KR Assistive Device (Bed-Chair Transfers) other (see comments) BUE support -KR Comment, (Bed-Chair Transfer) stand pivot towards L. Pt maintained flexed posture throughout transfer, unable to weight shift for steps to chair. -KR Row Name 03/04/25 1048 Sit-Stand Transfer Sit-Stand Will (Transfers) maximum assist (25% patient effort);2 person assist -KR Assistive Device (Sit-Stand Transfers) other (see comments) BUE support -KR Comment, (Sit-Stand Transfer) 2x from bed with cues for hand placement, improved MATTIE, and rocking for momentum. Max cues for upright posture and hip extension. -KR Row Name 03/04/25 1048 Gait/Stairs (Locomotion) Will Level (Gait) unable to assess -KR Comment, (Gait/Stairs) unsafe to assess -KR User Puckett (r) = Recorded By, (t) = Taken By, (c) = Cosigned By Initials Name Provider Type Lisa Will PT Physical Therapist Obj/Interventions Row Name 03/04/25 1050 Range of Motion Comprehensive Comment, General Range of Motion B knee flexion ROM to ~80 degrees -KR Row Name 03/04/25 1050 Strength Comprehensive (MMT) General Manual Muscle Testing (MMT) Assessment lower extremity strength deficits identified -KR Comment, General Manual Muscle Testing (MMT) Assessment LLE 5/5, R knee extension/flexion 2/5, R ankle DF/PF 4/5, R hip flexion 2/5 -KR Row Name 03/04/25 1050 Balance Balance Assessment sitting static balance;sitting dynamic balance;standing static balance;standing dynamic balance -KR Static Sitting Balance standby assist -KR Dynamic Sitting Balance contact guard -KR Position, Sitting Balance unsupported;sitting in chair;sitting edge of bed -KR Static Standing Balance maximum assist;2-person assist;non-verbal cues (demo/gesture);verbal cues -KR Dynamic Standing Balance maximum assist;2-person assist;verbal cues;non-verbal cues (demo/gesture) -KR Position/Device Used, Standing Balance supported;other (see comments) BUE support -KR Balance Interventions sitting;standing;sit to stand;supported;static;dynamic -KR Comment, Balance pt initially required maxA to maintain unsupported sitting EOB improving to SBA following cues -KR Row Name 03/04/25 1050 Sensory Assessment (Somatosensory) Sensory Assessment (Somatosensory) LE sensation intact -KR User Puckett (r) = Recorded By, (t) = Taken By, (c) = Cosigned By Initials Name Provider Type KR Lisa Smith PT Physical Therapist Goals/Plan Row Name 03/04/25 1054 Bed Mobility Goal 1 (PT) Activity/Assistive Device (Bed Mobility Goal 1, PT) bed mobility activities, all -KR Will Level/Cues Needed (Bed Mobility Goal 1, PT) minimum assist (75% or more patient effort) -KR Time Frame (Bed Mobility Goal 1, PT) short term goal (STG);1 week -KR Row Name 03/04/25 1054 Transfer Goal 1 (PT) Activity/Assistive Device (Transfer Goal 1, PT) [id number]/qsxxy-[id number]-zps;hly-ly-tvwvt/caiif-wo-wym;walker, rolling -KR Will Level/Cues Needed (Transfer Goal 1, PT) contact guard required -KR Time Frame (Transfer Goal 1, PT) terminal worker goal (LTG);2 weeks -KR Row Name 03/04/25 1054 Gait Training Goal 1 (PT) Activity/Assistive Device (Gait Training Goal 1, PT) gait (walking locomotion);improve balance and speed;increase endurance/gait distance;assistive device use;walker, rolling -KR Will Level (Gait Training Goal 1, PT) contact guard required -KR Distance (Gait Training Goal 1, PT) 150 -KR Time Frame (Gait Training Goal 1, PT) senior care goal (LTG);2 weeks -KR Row Name 03/04/25 1054 Stairs Goal 1 (PT) Activity/Assistive Device (Stairs Goal 1, PT) stairs, all skills;walker, rolling -KR Will Level/Cues Needed (Stairs Goal 1, PT) contact guard required -KR Number of Stairs (Stairs Goal 1, PT) 1 -KR Time Frame (Stairs Goal 1, PT) senior care goal (LTG);2 weeks -KR Row Name 03/04/25 1054 Therapy Assessment/Plan (PT) Planned Therapy Interventions (PT) balance training;bed mobility training;gait training;home exercise program;neuromuscular re-education;patient/family education;postural re-education;transfer training;stretching;strengthening;stair training;ROM (range of motion);motor coordination training -KR User Puckett (r) = Recorded By, (t) = Taken By, (c) = Cosigned By Initials Name Provider Type Lisa Will, PT Physical Therapist Clinical Impression Row Name 03/04/25 1052 Pain Pain Location knee -KR Pain Side/Orientation bilateral -KR Pain Management Interventions positioning techniques utilized -KR Response to Pain Interventions activity participation with increased pain -KR Additional Documentation Pain Scale: FACES Pre/Post-Treatment (Group) -KR Row Name 03/04/25 1052 Pain Scale: FACES Pre/Post-Treatment Pain: FACES Scale, Pretreatment 6-->hurts even more -KR Posttreatment Pain Rating 6-->hurts even more -KR Row Name 03/04/25 1052 Plan of Care Review Plan of Care Reviewed With patient;child;sibling -KR Outcome Evaluation Pt presents with significant B knee pain impacting all mobility, as well as R hemiparesis, decreased balance and endurance contributing to bed mobility, transfer, and ambulation deficits. Pt required 2-person assist for all mobility this date and was unable to progress to ambulation d/t weakness and knee pain. Pt will benefit from PT to address aforementioned deficits and return to PLOF. PT rec SNF upon dc. -KR Row Name 03/04/25 1052 Therapy Assessment/Plan (PT) Patient/Family Therapy Goals Statement (PT) to get better -KR Rehab Potential (PT) fair -KR Criteria for Skilled Interventions Met (PT) yes;meets criteria;skilled treatment is necessary -KR Therapy Frequency (PT) daily -KR Predicted Duration of Therapy Intervention (PT) 2 weeks -KR Row Name 03/04/25 1052 Vital Signs Pre Systolic BP Rehab 125 -KR Pre Treatment Diastolic BP 62 -KR Post Systolic BP Rehab 143 -KR Post Treatment Diastolic BP 75 -KR Pre Patient Position Supine -KR Intra Patient Position Standing -KR Post Patient Position Sitting -KR Row Name 03/04/25 1052 Positioning and Restraints Pre-Treatment Position in bed -KR Post Treatment Position chair -KR In Chair notified nsg;reclined;encouraged to call for assist;exit alarm on;heels elevated;waffle cushion;on mechanical lift sling;legs elevated;RUE elevated -KR User Puckett (r) = Recorded By, (t) = Taken By, (c) = Cosigned By Initials Name Provider Type KR Lisa Smith, PT Physical Therapist Outcome Measures Row Name 03/04/25 1054 How much help from another person do you currently need... Turning from your back to your side while in flat bed without using bedrails? 2 -KR Moving from lying on back to sitting on the side of a flat bed without bedrails? 2 -KR Moving to and from a bed to a chair (including a wheelchair)? 2 -KR Standing up from a chair using your arms (e.g., wheelchair, bedside chair)? 2 -KR Climbing 3-5 steps with a railing? 1 -KR To walk in hospital room? 1 -KR AM-PAC 6 Clicks Score (PT) 10 -KR Highest Level of Mobility Goal Move to Chair/Commode-4 -KR Row Name 03/04/25 1054 Modified [place] Scale Pre-Stroke Modified [place] Scale 6 - Unable to determine (UTD) from the medical record documentation -KR Modified [place] Scale 5 - Severe disability. Bedridden, incontinent, and requiring constant nursingcare and attention. -KR Row Name 03/04/25 1054 Functional Assessment Outcome Measure Options Modified [place];AM-PAC 6 Clicks Basic Mobility (PT) -KR User Puckett (r) = Recorded By, (t) = Taken By, (c) = Cosigned By Initials Name Provider Type Lisa Will PT Physical Therapist Physical Therapy Education Title: PT OT [employer] Therapies (In Progress) Topic: Physical Therapy (In Progress) Point: Mobility training (Done) Learning Progress Summary Patient Acceptance, E, VU by KR at 03/04/2025 1055 Family Acceptance, E, VU by KR at 03/04/2025 1055 Point: Home exercise program (Not Started) Learner Progress: Not documented in this visit. Point: Body mechanics (Done) Learning Progress Summary Patient Acceptance, E, VU by KR at 03/04/2025 1055 Family Acceptance, E, VU by KR at 03/04/2025 1055 Point: Precautions (Done) Learning Progress Summary Patient Acceptance, E, VU by KR at 03/04/2025 1055 Family Acceptance, E, VU by KR at 03/04/2025 1055 User Puckett Initials Effective Dates Name Provider Type Discipline 07/17/22 - Lisa Smith PT Physical Therapist PT PT Recommendation and Plan Recommended discharge disposition is based on the functional assessment performed by PT/OT/Speech therapy (as applicable) and may not reflect the medical necessity determined by your provider or services covered by an individual patient's insurance plan or patient resource. Planned Therapy Interventions (PT): balance training, bed mobility training, gait training, home exercise program, neuromuscular re-education, patient/family education, postural re-education, transfer training, stretching, strengthening, stair training, ROM (range of motion), motor coordination training Therapy Frequency (PT): daily Outcome Evaluation: Pt presents with significant B knee pain impacting all mobility, as well as R hemiparesis, decreased balance and endurance contributing to bed mobility, transfer, and ambulation deficits. Pt required 2-person assist for all mobility this date and was unable to progress to ambulation d/t weakness and knee pain. Pt will benefit from PT to address aforementioned deficits and return to PLOF. PT rec SNF upon dc. Time Calculation: PT Evaluation Complexity History, PT Evaluation Complexity: 3 or more personal factors and/or comorbidities Examination of Body Systems (PT Eval Complexity): total of 4 or more elements Clinical Presentation (PT Evaluation Complexity): evolving Clinical Decision Making (PT Evaluation Complexity): moderate complexity Overall Complexity (PT Evaluation Complexity): moderate complexity PT Charges Row Name 03/04/25 1055 Time Calculation Start Time 1030 -KR PT Received On 03/04/25 -KR PT Goal Re-Cert Due Date 03/14/25 -KR Untimed Charges PT Eval/Re-eval Minutes 46 -KR Total Minutes Untimed Charges Total Minutes 46 -KR Total Minutes 46 -KR User Puckett (r) = Recorded By, (t) = Taken By, (c) = Cosigned By Initials Name Provider Type Lisa Will, PT Physical Therapist Therapy Charges for Today Code Description Service Date Service Provider Modifiers Qty [id number] HC PT EVAL MOD COMPLEXITY 4 03/04/2025 Lisa Smith, PT GP 1 PT G-Codes Outcome Measure Options: Modified [place], AM-PAC 6 Clicks Basic Mobility (PT) AM-PAC 6 Clicks Score (PT): 10 Modified [place] Scale: 5 - Severe disability. Bedridden, incontinent, and requiring constant nursing care and attention. PT Discharge Summary Anticipated Discharge Disposition (PT): long term facility Lisa Smith PT 03/04/2025 documented in this encounter Plan of Treatment Upcoming Encounters Date Type Department Care Team (Late st Contact Info) Description 05/22/2025 11:00 AM EST Appointment [facility] [address] [id number] 05/22/2025 11:30 AM EST Office Visit [facility] [address] [id number] Chris Aponte APRN [address] [place] [phone] documented as of this encounter Procedures Procedure Name Priority Date/Time Associated Diagnosis Comments EMG 20644 (X1) & NCS 7-8 (69689) Routine 03/07/2025 9:15 AM EDT CBC WITH AUTO DIFFERENTIAL Routine 03/07/2025 8:02 AM EDT CBC AND DIFFERENTIAL Routine 03/07/2025 8:02 AM EDT BASIC METABOLIC PANEL Routine 03/07/2025 8:02 AM EDT BASIC METABOLIC PANEL Routine 03/06/2025 9:53 AM EDT CBC WITH AUTO DIFFERENTIAL Routine 03/06/2025 8:38 AM EDT CBC AND DIFFERENTIAL Routine 03/06/2025 8:38 AM EDT MRI THORACIC SPINE W WO CONTRAST Routine 03/05/2025 10:54 PM EDT MRI CERVICAL SPINE WO CONTRAST STAT 03/05/2025 10:26 PM EDT CK Routine 03/05/2025 7:04 PM EDT FOLATE Routine 03/05/2025 2:59 PM EDT VITAMIN B12 Routine 03/05/2025 2:59 PM EDT SEDIMENTATION RATE Add-On 03/05/2025 8: 11 AM EDT CBC (NO DIFF) Urgent 03/05/2025 8:11 AM EDT C-REACTIVE PROTEIN Add-On 03/05/2025 8: 11 AM EDT BASIC METABOLIC PANEL Urgent 03/05/2025 8:11 AM EDT POCT GLUCOSE FINGERSTICK Routine 03/04/2025 11:32 AM EDT DUPLEX CAROTID BILATERAL CAR - PERFORMED PROCEDURE Routine 03/04/2025 10:05 AM EDT CBC WITH AUTO DIFFERENTIAL Urgent 03/04/2025 8:42 AM EDT PHOSPHORUS Urgent 03/04/2025 8:42 AM EDT MAGNESIUM Urgent 03/04/2025 8:42 AM EDT HEMOGLOBIN A1C Urgent 03/04/2025 8:42 AM EDT LIPID PANEL Urgent 03/04/2025 8:42 AM EDT COMPREHENSIVE METABOLIC PANEL Urgent 03/04/2025 8:42 AM EDT POCT GLUCOSE FINGERSTICK Routine 03/04/2025 5:52 AM EDT POCT GLUCOSE FINGERSTICK Routine 03/04/2025 12:31 AM EDT POTASSIUM Urgent 03/03/2025 10:22 PM EDT MAGNESIUM Urgent 03/03/2025 10:22 PM EDT ECG 12-LEAD Routine 03/03/2025 9:10 PM EDT MRI LUMBAR SPINE WO CONTRAST Routine 03/03/2025 7:53 PM EDT MRI BRAIN WO CONTRAST Routine 03/03/2025 7:53 PM EDT POCT GLUCOSE FINGERSTICK Routine 03/03/2025 5:45 PM EDT XR OUTSIDE CHEST Routine 03/02/2025 12:[address] OUTSIDE CHEST Routine 03/02/2025 12:[address] OUTSIDE FILMS Routine 03/02/2025 12:[address] OUTSIDE FILMS Routine 03/02/2025 12:0 0 AM EDT documented in this encounter Results * EMG 73834 (X1) & NCS 7-8 (65745) (03/07/2025 9:15 AM EDT) Impressions NEUROLOGY - 03/07/2025 10:37 AM EDT Sensorimotor neuropathy, axonal, mild-moderate No electrophysiologic evidence for radiculopathy or plexopathy is seen in the right leg Note-this study is performed relatively early on Following onset of weakness. Should neurological symptoms persist or worsen, a repeat study in the future may be of value This report is transcribed using the [employer] dictation system. Narrative NEUROLOGY - 03/07/2025 10:37 AM EDT Table formatting from the original result was not included. Images from the original result were not included. Indication: Bilateral leg weakness, greater on right, consideration of radiculopathy, peripheral neuropathy Clinical: 84 y.o.male with a history of relatively acute onset of bilateral lower extremity weakness beginning this past Wednesday roughly 5 days ago. He reports variable degrees of pain in the hip and knee on the right. His muscle bulk appears intact. His muscle strength appears good but examination was extremely limited due to pain with any significant movement of the ankle, knee or hip. He has diminished distal sensation to pinprick and vibration. His reflexes are reduced at the knee and ankle on the right. Radiculopathy and neuropathy are clinical considerations. NCS/EMG TECHNICAL DATA: All studies are performed at a skin temperature of 34 C or greater. Distal sensory latencies are calculated to waveform peak. Sensory amplitudes are measured peak to peak Distal motor latencies are calculated to waveform onset. Motor amplitudes are calculated baseline to peak Nerve Conduction Studies Anti Sensory Summary Table Stim Site NR Peak (ms) Norm Peak (ms) P-T Amp ( V) Norm P-T Amp Site1 Site2 Delta-P (ms) Dist (cm) César (m/s) Norm César (m/s) Right Sup Fibular Anti Sensory (Ant Lat Mall) 14 cm NR <4.4 >5.0 14 cm Ant Lat Mall 14.0 >32 Ortho Sensory Summary Table Stim Site NR Peak (ms) Norm Peak (ms) P-T Amp ( V) Norm P-T Amp Site1 Site2 Delta-P (ms) Dist (cm) César (m/s) Norm César (m/s) Right Median Ortho Sensory (Wrist) 2nd Digit 2.3 7.3 2nd Digit Wrist 2.3 8.0 35 Right Ulnar Ortho Sensory (Wrist) 5th Digit 1.5 7.6 5th Digit Wrist 1.5 8.0 53 Motor Summary Table Stim Site NR Onset (ms) Norm Onset (ms) O-P Amp (mV) Norm O-P Amp Site1 Site2 Delta-0 (ms) Dist (cm) Écsar (m/s) Norm César (m/s) Right Fibular Motor (Ext Dig Brev) Ankle 4.3 <6.1 2.2 >2.5 B Fib Ankle 9.4 36.0 38 >40 B Fib 13.7 1.9 Poplt B Fib 1.3 10.0 77 >40 Poplt 15.0 1.7 Right Tibial Motor (Abd Valerio Brev) Ankle 3.3 <6.1 0.3 >3.0 Knee Ankle 0.0 >40 Knee NR F Wave Studies NR F-Lat (ms) Lat Norm (ms) L-R F-Lat (ms) L-R Lat Norm M-Lat (ms) FLat-MLat (ms) Right Fibular (Mrkrs) (EDB) 73.14 <60 <5.1 4.00 69.14 Right Tibial (Mrkrs) (Abd Hallucis) 67.33 <61 <5.7 5.33 62.00 H Reflex Studies NR H-Lat (ms) L-R H-Lat (ms) L-R Lat Norm Left Tibial (Mrkrs) (Gastroc) NR <2.0 Right Tibial (Mrkrs) (Gastroc) NR <2.0 EMG Side Muscle Nerve Root Ins Act Fibs Psw Amp Dur Poly Recrt Int Pat Comment Right AntTibialis Dp Br Fibular L4-5 Nml Nml Nml Nml Nml 0 Nml Nml Right Fibularis Long Sup Br Fibular L5-S1 Nml Nml Nml Nml Nml 0 Nml Nml Right PostTibialis Tibial L5, S1 Nml Nml Nml Nml Nml 0 Nml Nml Right VastusLat Femoral L2-4 Nml Nml Nml Nml Nml 0 Nml Nml Right Add Jay Jay Obturator, Sciat L2-4 Nml Nml Nml Nml Nml 0 Nml Nml Waveforms: FINDINGS: Nerve Conduction Studies: No responses seen following stimulation of the right superficial peroneal sensory nerve Amplitude of the right peroneal motor nerve is reduced to 2.2 mV and velocity is slowed at 38 m/s between knee and ankle Amplitude of the right posterior tibial motor nerve is reduced at 0.3 mV Motor F wave latency of the right posterior tibial motor nerve and right peroneal motor nerve are prolonged H-reflexes are not reliably seen on either side Median sensory latency on the right is minimally prolonged at 2.3 ms and amplitude is reduced Ulnar sensory latency on the right is normal at 1.5 ms and amplitude is reduced Electromyogram: Needle examination of the right leg is unremarkable. The lumbar paraspinous muscles could not be interrogated due to difficulty with patient repositioning us October Moises [employer] INSPECTOR NEUROLOGY ORDERABLES Final R esult NEUROLOGY * (ABNORMAL) CBC Auto Differential (03/07/2025 8:02 AM EDT) [facility] WBC 10.85(H) 3.40 - 10.80 10*3/mm3 03/07/2025 8:35 AM EDT [facility] RBC 3.92(L) 4.14 - 5.80 10*6/mm3 03/07/2025 8:35 AM EDT [facility] Hemoglobin 11.9(L) 13.0 - 17.7 g/dL 03/07/2025 8:35 AM EDT [facility] Hematocrit 36.7(L) 37.5 - 51.0 % 03/07/2025 8:35 AM EDT [facility] MCV 93.6 79.0 - 97.0 fL 03/07/2025 8:35 AM EDT [facility] MCH 30.4 26.6 - 33.0 pg 03/07/2025 8:35 AM EDT [facility] MCHC 32.4 31.5 - 35.7 g/dL 03/07/2025 8:35 AM [facility] RDW 15.0 12.3 - 15.4 % 03/07/2025 8:35 AM [facility] RDW-SD 51.3 37.0 - 54.0 fl 03/07/2025 8:35 AM [facility] MPV 9.7 6.0 - 12.0 fL 03/07/2025 8:35 AM [facility] Platelets 340 140 - 450 10*3/mm3 03/07/2025 8:35 AM [facility] Neutrophil % 75.8 42.7 - 76.0 % 03/07/2025 8:35 AM [facility] Lymphocyte % 8.6(L) 19.6 - 45.3 % 03/07/2025 8:35 AM [facility] Monocyte % 10.5 5.0 - 12.0 % 03/07/2025 8:35 AM [facility] Eosinophil % 4.0 0.3 - 6.2 % 03/07/2025 8:35 AM [facility] Basophil % 0.5 0.0 - 1.5 % 03/07/2025 8:35 AM [facility] Immature Grans % 0.6(H) 0.0 - 0.5 % 03/07/2025 8:35 AM [facility] Neutrophils, Absolute 8.24(H) 1.70 - 7.00 10*3/mm3 03/07/2025 8:35 AM [facility] Lymphocytes, Absolute 0.93 0.70 - 3.10 10*3/mm3 03/07/2025 8:35 AM [facility] Monocytes, Absolute 1.14(H) 0.10 - 0.90 10*3/mm3 03/07/2025 8:35 AM [facility] Eosinophils, Absolute 0.43(H) 0.00 - 0.40 10*3/mm3 03/07/2025 8:35 AM [facility] Basophils, Absolute 0.05 0.00 - 0.20 10*3/mm3 03/07/2025 8:35 AM EDT [facility] Immature Grans, Absolute 0.06(H) 0.00 - 0.05 10*3/mm3 03/07/2025 8:35 AM EDT [facility] nRBC 0.0 0.0 - 0.2 /100 WBC 03/07/2025 8:35 AM EDT [facility] Blood Venipuncture / Unknown 03/07/2025 8:02 AM EDT 03/07/2025 8:24 AM EDT us Allison Zaragoza MD LAB BLOOD ORDERABLES Final Resul t [facility]
[address] [place] [address], * (ABNORMAL) Basic Metabolic Panel (03/07/2025 8:02 AM EDT) Glucose 135(H) 65 - 99 mg/dL 03/07/2025 8:57 AM EDT [facility] BUN 12.6 8.0 - 23.0 mg/dL 03/07/2025 8:57 AM EDT [facility] Creatinine 0.56(L) 0.76 - 1.27 mg/dL 03/07/2025 8:57 AM EDT [facility] Sodium 135(L) 136 - 145 mmol/L 03/07/2025 8:57 AM EDT [facility] Potassium 4.2 3.5 - 5.2 mmol/L 03/07/2025 8:57 AM EDT [facility] Chloride 98 98 - 107 mmol/L 03/07/2025 8:57 AM EDT [facility] CO2 27.0 22.0 - 29.0 mmol/L 03/07/2025 8:57 AM EDT [facility] Calcium 8.3(L) 8.6 - 10.5 mg/dL 03/07/2025 8:57 AM EDT [facility] BUN/Creatinine Ratio 22.5 7.0 - 25.0 03/07/2025 8:57 AM EDT [facility] Anion Gap 10.0 5.0 - 15.0 mmol/L 03/07/2025 8:57 AM EDT [facility] eGFR 98.4 >60.0 mL/min/1.7 3 03/07/2025 8:57 AM EDT [facility] Blood Venipuncture / Unknown 03/07/2025 8:02 AM EDT 03/07/2025 8:23 AM EDT Narrative [facility] - 03/07/2025 8:57 AM EDT GFR Categories in Chronic Kidney Disease (CKD) GFR Category GFR (mL/min/1.73) Interpretation G1 90 or greater Normal or high (1) G2 60-89 Mild decrease (1) G3a 45-59 Mild to moderate decrease G3b 30-44 Moderate to severe decrease G4 15-29 Severe decrease G5 14 or less Kidney failure (1)In the absence of evidence of kidney disease, neither GFR category G1 or G2 fulfill the criteria for CKD. eGFR calculation 2020 CKD-EPI creatinine equation, which does not include race as a factor us Allison aZragoza MD LAB BLOOD ORDERABLES Final Resul t [facility]
[address] [place] [address], * (ABNORMAL) Basic Metabolic Panel (03/06/2025 9:53 AM EDT) Glucose 177(H) 65 - 99 mg/dL 03/06/2025 10:35 AM EDT [facility] BUN 11.6 8.0 - 23.0 mg/dL 03/06/2025 10:35 AM EDT [facility] Creatinine 0.63(L) 0.76 - 1.27 mg/dL 03/06/2025 10:35 AM EDT [facility] Sodium 133(L) 136 - 145 mmol/L 03/06/2025 10:35 AM EDT [facility] Potassium 4.5 3.5 - 5.2 mmol/L 03/06/2025 10:35 AM EDT [facility] Chloride 99 98 - 107 mmol/L 03/06/2025 10:35 AM EDT [facility] CO2 27.0 22.0 - 29.0 mmol/L 03/06/2025 10:35 AM EDT [facility] Calcium 8.0(L) 8.6 - 10.5 mg/dL 03/06/2025 10:35 AM EDT [facility] BUN/Creatinine Ratio 18.4 7.0 - 25.0 03/06/2025 10:35 AM EDT [facility] Anion Gap 7.0 5.0 - 15.0 mmol/L 03/06/2025 10:35 AM EDT [facility] eGFR 95.0 >60.0 mL/min/1.7 3 03/06/2025 10:35 AM T [facility] Blood Venipuncture / Unknown 03/06/2025 9:53 AM EDT 03/06/2025 9:58 AM EDT [facility] - 03/06/2025 10:35 AM EDT GFR Categories in Chronic Kidney Disease (CKD) GFR Category GFR (mL/min/1.73) Interpretation G1 90 or greater Normal or high (1) G2 60-89 Mild decrease (1) G3a 45-59 Mild to moderate decrease G3b 30-44 Moderate to severe decrease G4 15-29 Severe decrease G5 14 or less Kidney failure (1)In the absence of evidence of kidney disease, neither GFR category G1 or G2 fulfill the criteria for CKD. eGFR calculation 2020 CKD-EPI creatinine equation, which does not include race as a factor us Allison Zaragoza MD LAB BLOOD ORDERABLES Final Resul t [facility]
[address] [place] [address], * (ABNORMAL) CBC Auto Differential (03/06/2025 8:38 AM EDT) [facility] WBC 11.52(H) 3.40 - 10.80 10*3/mm3 03/06/2025 8:53 AM EDT [facility] RBC 4.02(L) 4.14 - 5.80 10*6/mm3 03/06/2025 8:53 AM EDT [facility] Hemoglobin 12.3(L) 13.0 - 17.7 g/dL 03/06/2025 8:53 AM EDT [facility] Hematocrit 37.5 37.5 - 51.0 % 03/06/2025 8:53 AM EDT [facility] MCV 93.3 79.0 - 97.0 fL 03/06/2025 8:53 AM EDT [facility] MCH 30.6 26.6 - 33.0 pg 03/06/2025 8:53 AM EDT [facility] MCHC 32.8 31.5 - 35.7 g/dL 03/06/2025 8:53 AM EDT [facility] RDW 15.1 12.3 - 15.4 % 03/06/2025 8:53 AM EDT [facility] RDW-SD 52.1 37.0 - 54.0 fl 03/06/2025 8:53 AM EDT [facility] MPV 9.6 6.0 - 12.0 fL 03/06/2025 8:53 AM EDT [facility] Platelets 299 140 - 450 10*3/mm3 03/06/2025 8:53 AM EDT [facility] Neutrophil % 72.6 42.7 - 76.0 % 03/06/2025 8:53 AM EDT [facility] Lymphocyte % 11.1(L) 19.6 - 45.3 % 03/06/2025 8:53 AM EDT [facility] Monocyte % 11.2 5.0 - 12.0 % 03/06[facility]2025 8[facility] Eosinophil % 4.1 0.3 - 6.2 % 03/06/2025 8:53 AM EDT [facility] Basophil % 0.5 0.0 - 1.5 % 03/06/2025 8:53 AM EDT [facility] Immature Grans % 0.5 0.0 - 0.5 % 03/06/2025 8:53 AM EDT [facility] Neutrophils, Absolute 8.36(H) 1.70 - 7.00 10*3/mm3 03/06/2025 8:53 AM EDT [facility] Lymphocytes, Absolute 1.28 0.70 - 3.10 10*3/mm3 03/06/2025 8:53 AM EDT [facility] Monocytes, Absolute 1.29(H) 0.10 - 0.90 10*3/mm3 03/06/2025 8:53 AM EDT [facility] Eosinophils, Absolute 0.47(H) 0.00 - 0.40 10*3/mm3 03/06/2025 8:53 AM EDT [facility] Basophils, Absolute 0.06 0.00 - 0.20 10*3/mm3 03/06/2025 8:53 AM EDT [facility] Immature Grans, Absolute 0.06(H) 0.00 - 0.05 10*3/mm3 03/06/2025 8:53 AM EDT [facility] nRBC 0.0 0.0 - 0.2 /100 WBC 03/06/2025 8:53 AM EDT [facility] Blood Venipuncture / Unknown 03/06/2025 8:38 AM EDT 03/06/2025 8:44 AM EDT us Allison Zaragoza MD LAB BLOOD ORDERABLES Final Resul t [facility]
[address] [place] [address], * MRI Thoracic Spine With & Without Contrast (03/05/2025 10:54 PM EDT) Anatomical Region Laterality Modality Spine, T-spine N/A Magnetic Resonan ce 03/06/2025 8:31 AM EDT Impressions 03/06/2025 8:45 AM EDT Impression: No acute abnormality of the thoracic spine. No significant spinal canal or neuroforaminal stenosis. Electronically Signed: Gary Shaw MD 03/06/2025 8:45 AM EDT Workstation ID: [id number] Narrative 03/06/2025 8:45 AM EDT MRI THORACIC SPINE W WO CONTRAST Date of Exam: 03/05/2025 10:46 PM EDT Indication: Bilateral lower extremity weakness and pain. Comparison: None available. Technique: Routine multiplanar/multisequence sequence images of the thoracic spine were obtained before and after the uneventful administration of Multihance. Findings: There is a round, microlobulated T1/T2/STIR hyperintense lesion of the T8 vertebral body compatible with hemangioma. Otherwise unremarkable bone marrow signal intensity. No evidence of fracture or loss of vertebral body height. No bony edema. There is normal spinal alignment. The intervertebral disc spaces appear grossly preserved without significant loss of intervertebral disc height or advanced degenerative disc disease. There is small right-sided ligamentum flavum hypertrophy at T11-T12 (series 10 image 10). No conspicuous disc bulge or disc protrusion. Heterogeneous CSF flow voids are seen along the dorsal cord. No significant spinal canal or neuroforaminal stenosis. There is normal morphology and signal intensity of the imaged spinal cord. The conus terminates at the level of the inferior endplate of L1. The paravertebral soft tissues appear unremarkable. No abnormal bony or soft tissue enhancement on the postcontrast images. No pericardial or pleural effusion. Multiple right close partial visualization of bilateral renal cortical cysts. The paravertebral soft tissues appear unremarkable. Procedure Note Gary Shaw MD - 03/06/2025 MRI THORACIC SPINE W WO CONTRAST Date of Exam: 03/05/2025 10:46 PM EDT Indication: Bilateral lower extremity weakness and pain. Comparison: None available. Technique: Routine multiplanar/multisequence sequence images of thethoracic spine were obtained before and after the uneventfuladministration of Multihance. Findings: There is a round, microlobulated T1/T2/STIR hyperintense lesion of the [id number] body compatible with hemangioma. Otherwise unremarkable bonemarrow signal intensity. No evidence of fracture or loss of vertebral bodyheight. No bony edema. There is normal spinal alignment. The intervertebral disc spaces appear grossly preserved withoutsignificant loss of intervertebral disc height or advanced degenerativedisc disease. There is small right-sided ligamentum flavum hypertrophy [id number] (series 10 image 10). No conspicuous disc bulge or disc protrusion. Heterogeneous CSF flow voids are seenalong the dorsal cord. No significant spinal canal or neuroforaminalstenosis. There is normal morphology and signal intensity of the imaged spinal cord.The conus terminates at the level of the inferior endplate of L1. The paravertebral soft tissues appear unremarkable. No abnormal bony or soft tissue enhancement on the postcontrast images. No pericardial or pleural effusion. Multiple right close partialvisualization of bilateral renal cortical cysts. The paravertebral softtissues appear unremarkable. IMPRESSION: Impression: No acute abnormality of the thoracic spine. No significant spinal canal orneuroforaminal stenosis. Electronically Signed: Gary Shaw MD 03/06/2025 8:45 AM EDT Workstation ID: [id number] Allison Zaragoza MD [facility] MRI ORDERABLES Final Result * MRI Cervical Spine Without Contrast (03/05/2025 10:26 PM EDT) Anatomical Region Laterality Modality Spine, C-spine N/A Magnetic Resonan ce 03/05/2025 10:4 4 PM EDT Impressions 03/05/2025 10:51 PM EDT Impression: Multilevel cervical spondylosis is present, including some edematous spondylotic endplate changes at C6-7, potentially a source of acute axial neck pain. There is no evidence of associated high-grade spinal canal or neuroforaminal impingement. Electronically Signed: Prince Aly MD 03/05/2025 10:51 PM EDT Workstation ID: [id number] Narrative 03/05/2025 10:51 PM EDT MRI CERVICAL SPINE WO CONTRAST Date of Exam: 03/05/2025 10:10 PM EDT Indication: BLE Weakness. Comparison: CT 03/02/2025. Technique: Routine multiplanar/multisequence sequence images of the cervical spine were obtained without contrast administration. Findings: Spondylotic endplate changes are present, including with some associated marrow edema at C6-7. T1 marrow signal is otherwise preserved, without evidence of fracture or suspicious marrow replacing lesion. There is straightening of the usual cervical lordosis, without evidence of listhesis or subluxation. The cervical spinal cord demonstrates no focal areas of intramedullary signal abnormality. The paraspinal soft tissues demonstrate no acute or suspicious findings. Multilevel spondylosis change is present, with areas of involvement noted including C2-3, no significant spinal canal or neuroforaminal impingement. C3-4, disc osteophyte complex and bilateral facet arthropathy. There is mild spinal canal and bilateral neuroforaminal narrowing, greater on the right. C4-5, disc osteophyte complex and bilateral facet arthropathy. There is mild spinal canal narrowing. There is mild to moderate bilateral neuroforaminal stenosis, fairly symmetric. C5-6, disc osteophyte complex and bilateral facet arthropathy. There is mild spinal canal and bilateral neuroforaminal narrowing. C6-7, disc osteophyte complex and bilateral facet arthropathy. There is mild spinal canal and bilateral neuroforaminal narrowing present. Procedure Note Ed Aly MD - 03/05/2025 MRI CERVICAL SPINE WO CONTRAST Date of Exam: 03/05/2025 10:10 PM EDT Indication: BLE Weakness. Comparison: CT 03/02/2025. Technique: Routine multiplanar/multisequence sequence images of thecervical spine were obtained without contrast administration. Findings: Spondylotic endplate changes are present, including with some associatedmarrow edema at C6-7. T1 marrow signal is otherwise preserved, withoutevidence of fracture or suspicious marrow replacing lesion. There isstraightening of the usual cervical lordosis, without evidence of listhesis or subluxation. The cervicalspinal cord demonstrates no focal areas of intramedullary signalabnormality. The paraspinal soft tissues demonstrate no acute orsuspicious findings. Multilevel spondylosis change is present, with areas of involvement noted including C2-3, no significant spinal canal or neuroforaminal impingement. C3-4, disc osteophyte complex and bilateral facet arthropathy. There ismild spinal canal and bilateral neuroforaminal narrowing, greater on theright. C4-5, disc osteophyte complex and bilateral facet arthropathy. There ismild spinal canal narrowing. There is mild to moderate bilateralneuroforaminal stenosis, fairly symmetric. C5-6, disc osteophyte complex and bilateral facet arthropathy. There ismild spinal canal and bilateral neuroforaminal narrowing. C6-7, disc osteophyte complex and bilateral facet arthropathy. There ismild spinal canal and bilateral neuroforaminal narrowing present. IMPRESSION: Impression: Multilevel cervical spondylosis is present, including some edematousspondylotic endplate changes at C6-7, potentially a source of acute axialneck pain. There is no evidence of associated high-grade spinal canal orneuroforaminal impingement. Electronically Signed: Prince Aly MD 03/05/2025 10:51 PM EDT Workstation ID: [id number] october Moises [facility] IM[facility] MRI ORDERABLES Final Res ult * CK (03/05/2025 7:04 PM EDT) Creatine Kinase 101 20 - 200 U/L 03/05/2025 8:15 PM EDT [facility] Blood Venipuncture / Unknown 03/05/2025 7:04 PM EDT 03/05/2025 7:49 PM EDT october Moises VALENCIAN LAB BLOOD ORDERABLES Final R esult [facility]
[address] [place] [address], [place] [phone] * Folate (03/05/2025 2:59 PM EDT) Folate 9.87 4.78 - 24.20 ng/mL 03/05/2025 7:42 PM EDT [facility] Blood Venipuncture / Unknown 03/05/2025 2:59 PM EDT 03/05/2025 3:18 PM EDT Narrative [facility] - 03/05/2025 7:42 PM EDT Results may be falsely increased if patient taking Biotin. [facility] BLOOD ORDERABLES Final R esult Performing Organization Address City/[facility] [address]/ZIP Co de Phone Number [facility]
[address] [place] [address], * Vitamin B12 (03/05/2025 2:59 PM EDT) Vitamin B-12 289 211 - 946 pg/mL 03/05/2025 7:42 PM EDT [facility] LABORATORY Blood Venipuncture / Unknown 03/05/2025 2:59 PM EDT 03/05/2025 3:18 PM EDT Narrative [facility] - 03/05/2025 7:42 PM EDT Results may be falsely increased if patient taking Biotin. Angelina [facility] LAB BLOOD ORDERABLES Final R esult Performing Organization Address [facility] [address]/[facility] Co de Phone Number [facility]
[address] [place] [address], * (ABNORMAL) Sedimentation Rate (03/05/2025 8:11 AM EDT) Pathologist [facility] Sed Rate 78(H) 0 - 20 mm/hr 03/05/2025 2:51 PM EDT [facility] Blood Venipuncture / Unknown 03/05/2025 8:11 AM EDT 03/05/2025 8:25 AM EDT [facility] LAB BLOOD ORDERABLES Final R esult Performing Organization Address City/[facility] [address]/ZIP Co de Phone Number [facility]
[address] [place] [address], [place] [phone] * (ABNORMAL) C-reactive Protein (03/05/2025 8:11 AM EDT) C-Reactive Protein 9.14(H) 0.00 - 0.50 mg/dL 03/05/2025 3:42 PM EDT [facility] Blood Venipuncture / Unknown 03/05/2025 8:11 AM EDT 03/05/2025 8:25 AM EDT october K De Leon FI[employer] INSPECTOR LAB BLOOD ORDERABLES Final R esult [facility]
[address] [place] [address], * (ABNORMAL) Basic Metabolic Panel (03/05/2025 8:11 AM EDT) Pathologist [facility] Glucose 129(H) 65 - 99 mg/dL 03/05/2025 9:24 AM EDT [facility] BUN 13.5 8.0 - 23.0 mg/dL 03/05/2025 9:24 AM EDT [facility] Creatinine 0.69(L) 0.76 - 1.27 mg/dL 03/05/2025 9:24 AM EDT [facility] Sodium 139 136 - 145 mmol/L 03/05/2025 9:24 AM EDT [facility] Potassium 4.0 3.5 - 5.2 mmol/L 03/05/2025 9:24 AM EDT [facility] Chloride 102 98 - 107 mmol/L 03/05/2025 9:24 AM EDT [facility] CO2 29.0 22.0 - 29.0 mmol/L 03/05/2025 9:24 AM EDT [facility] Calcium 8.4(L) 8.6 - 10.5 mg/dL 03/05/2025 9:24 AM EDT [facility] BUN/Creatinine Ratio 19.6 7.0 - 25.0 03/05/2025 9:24 AM EDT [facility] Anion Gap 8.0 5.0 - 15.0 mmol/L 03/05/2025 9:24 AM EDT [facility] eGFR 92.4 >60.0 mL/min/1.7 3 03/05/2025 9:24 AM EDT [facility] Blood Venipuncture / Unknown 03/05/2025 8:11 AM EDT 03/05/2025 8:25 AM EDT [facility] LABORATORY - 03/05/2025 9:24 AM EDT GFR Categories in Chronic Kidney Disease (CKD) GFR Category GFR (mL/min/1.73) Interpretation G1 90 or greater Normal or high (1) G2 60-89 Mild decrease (1) G3a 45-59 Mild to moderate decrease G3b 30-44 Moderate to severe decrease G4 15-29 Severe decrease G5 14 or less Kidney failure (1)In the absence of evidence of kidney disease, neither GFR category G1 or G2 fulfill the criteria for CKD. eGFR calculation 2020 CKD-EPI creatinine equation, which does not include race as a factor us Willy Santoyo MD LAB BLOOD ORDERABLES Final Res ult [facility]
[address] [place] [address], * (ABNORMAL) CBC (No Diff) (03/05/2025 8:11 AM EDT) WBC 10.64 3.40 - 10.80 10*3/mm3 03/05/2025 8:34 AM EDT [facility] RBC 3.92(L) 4.14 - 5.80 10*6/mm3 03/05/2025 8:34 AM EDT [facility] Hemoglobin 12.2(L) 13.0 - 17.7 g/dL 03/05/2025 8:34 AM EDT [facility] Hematocrit 37.1(L) 37.5 - 51.0 % 03/05/2025 8:34 AM EDT [facility] MCV 94.6 79.0 - 97.0 fL 03/05/2025 8:34 AM EDT [facility] MCH 31.1 26.6 - 33.0 pg 03/05/2025 8:34 AM EDT [facility] MCHC 32.9 31.5 - 35.7 g/dL 03/05/2025 8:34 AM EDT [facility] RDW 15.3 12.3 - 15.4 % 03/05/2025 8:34 AM EDT [facility] RDW-SD 53.0 37.0 - 54.0 fl 03/05/2025 8:34 AM EDT [facility] MPV 10.0 6.0 - 12.0 fL 03/05/2025 8:34 AM EDT [facility] Platelets 309 140 - 450 10*3/mm3 03/05/2025 8:34 AM EDT [facility] Blood Venipuncture / Unknown 03/05/2025 8:11 AM EDT 03/05/2025 8:25 AM EDT us Willy Santoyo MD LAB BLOOD ORDERABLES Final Res ult [facility]
[address] [place] [address], [place] [phone] * POC Glucose Once (03/04/2025 11:32 AM EDT) Glucose 130 70 - 130 mg/dL 03/04/2025 11:35 AM EDT [facility] Blood 03/04/2025 11:3 2 AM EDT 03/04/2025 11:35 AM EDT us Willy Santoyo MD POINT OF CARE TEST ORDERABLES Final Result Performing Organization Address City/[facility] [address]/ZIP Co de Phone Number [facility]
[address] [place] [address], [place] [phone] * DUPLEX CAROTID BILATERAL CAR - PERFORMED PROCEDURE (03/04/2025 10:05 AM EDT) Prox CCA PSV 109.0 cm/sec Prox CCA EDV 14.7 cm/sec Right Mid CCA PSV 92.5 cm/sec right Mid CCA EDV 21.0 cm/sec Dist CCA PSV 60.9 cm/sec Dist CCA EDV 15.2 cm/sec Prox ICA PSV 123.0 cm/sec Prox ICA EDV 25.2 cm/sec Mid ICA PSV 110.0 cm/sec Mid ICA EDV 37.1 cm/sec Dist ICA PSV 75.0 cm/sec Dist ICA EDV 17.2 cm/sec Prox ECA PSV 245.0 cm/sec Prox ECA EDV 25.1 cm/sec Vertebral A PSV 51.0 cm/sec Vertebral A EDV 12.9 cm/sec Prox SCLA PSV 96.7 cm/sec Prox CCA PSV 115.0 cm/sec Prox CCA EDV 24.2 cm/sec left Mid CCA PSV 96.0 cm/sec left Mid CCA EDV 15.4 cm/sec Dist CCA PSV 96.0 cm/sec Dist CCA EDV 15.4 cm/sec Prox ICA PSV 82.6 cm/sec Prox ICA EDV 17.4 cm/sec Mid ICA PSV 93.2 cm/sec Mid ICA EDV 32.9 cm/sec Dist ICA PSV 103.0 cm/sec Dist ICA EDV 37.9 cm/sec Prox ECA PSV 237.0 cm/sec Prox ECA EDV 17.6 cm/sec Vertebral A PSV 56.5 cm/sec Vertebral A EDV 16.7 cm/sec Prox SCLA PSV 158.0 cm/sec ICA/CCA ratio 2.02 Diastolic ICA/CCA Ratio 1.66 ICA/CCA ratio 0.97 ICA/CCA diastolic ratio 2.14 Right arm BP No BP mmHg Left arm BP 125/62 mmHg Anatomical Region Laterality Modality Ultrasound Narrative 03/04/2025 11:07 AM EDT Right internal carotid artery demonstrates a less than 50% stenosis. Antegrade right vertebral flow. Left internal carotid artery demonstrates a less than 50% stenosis. Antegrade left vertebral flow. There is external carotid artery stenosis noted bilaterally Study Impression Right ICA: Imaging indicates <50% stenosis. Left ICA: Imaging indicates <50% stenosis. Study Findings Right CCA Prox: No plaque visualized. Right CCA Mid: No plaque visualized. Right CCA Dist: No plaque visualized. Right Carotid Bulb: Irregular heterogeneous plaque present. Right ICA Prox: Irregular calcified heterogeneous plaque present. Right ICA Mid: No plaque visualized. Right ICA Dist: No plaque visualized. Right ECA: Irregular heterogeneous plaque present. Right Vertebral: Antegrade flow noted. Left CCA Prox: No plaque visualized. Left CCA Mid: Heterogeneous plaque present. Left CCA Dist: No plaque visualized. Left Carotid Bulb: Irregular heterogeneous plaque present. Left ICA Prox: Irregular calcified heterogeneous plaque present. Left ICA Mid: No plaque visualized. Left ICA Dist: No plaque visualized. Left ECA: Irregular heterogeneous plaque present. Left Vertebral: Antegrade flow noted. Elevated velocities are noted in bilateral ECA proximal segments. Additional Study Details The study is technically adequate for diagnosis. The quality of the study is limited due to patient body habitus and breath motion. No prior for comparison. Mer Dove APRN CV VASCULAR ORDERABLES Fi nal Result * (ABNORMAL) Phosphorus (03/04/2025 8:42 AM EDT) Phosphorus 2.3(L) 2.5 - 4.5 mg/dL 03/04/2025 9:30 AM EDT [facility] Blood Venipuncture / Unknown 03/04/2025 8:42 AM EDT 03/04/2025 8:53 AM EDT Mack Prince DO LAB BLOOD ORDERABLES Final R esult [facility]
[address] [place] [address], * Magnesium (03/04/2025 8:42 AM EDT) Magnesium 2.2 1.6 - 2.4 mg/dL 03/04/2025 9:30 AM EDT [facility] Blood Venipuncture / Unknown 03/04/2025 8:42 AM EDT 03/04/2025 8:53 AM EDT us Mack Prince DO LAB BLOOD ORDERABLES Final R esult [facility]
[address] [place] [address], * (ABNORMAL) Comprehensive Metabolic Panel (03/04/2025 8:42 AM EDT) [facility] Glucose 130(H) 65 - 99 mg/dL 03/04/2025 9:30 AM EDT [facility] BUN 16.7 8.0 - 23.0 mg/dL 03/04/2025 9:30 AM EDT [facility] Creatinine 0.77 0.76 - 1.27 mg/dL 03/04/2025 9:30 AM EDT [facility] Sodium 137 136 - 145 mmol/L 03/04/2025 9:30 AM EDT [facility] Potassium 3.7 3.5 - 5.2 mmol/L 03/04/2025 9:30 AM EDT [facility] Chloride 101 98 - 107 mmol/L 03/04/2025 9:30 AM EDT [facility] CO2 25.0 22.0 - 29.0 mmol/L 03/04/2025 9:30 AM EDT [facility] Calcium 8.1(L) 8.6 - 10.5 mg/dL 03/04/2025 9:30 AM EDT [facility] Total Protein 6.8 6.0 - 8.5 g/dL 03/04/2025 9:30 AM EDT [facility] Albumin 3.5 3.5 - 5.2 g/dL 03/04/2025 9:30 AM EDT [facility] ALT (SGPT) 10 1 - 41 U/L 03/04/2025 9:30 AM EDT [facility] AST (SGOT) 13 1 - 40 U/L 03/04/2025 9:30 AM EDT [facility] Alkaline Phosphatase 62 39 - 117 U/L 03/04/2025 9:30 AM EDT [facility] Total Bilirubin 0.3 0.0 - 1.2 mg/dL 03/04/2025 9:30 AM EDT [facility] Globulin 3.3 gm/dL 03/04/2025 9:30 AM EDT [facility] Comment:Calculated Result A/G Ratio 1.1 g/dL 03/04/2025 9:30 AM EDT [facility] BUN/Creatinine Ratio 21.7 7.0 - 25.0 03/04/2025 9:30 AM EDT [facility] Anion Gap 11.0 5.0 - 15.0 mmol/L 03/04/2025 9:30 AM EDT [facility] eGFR 89.4 >60.0 mL/min/1.7 3 03/04/2025 9:30 AM EDT [facility] Blood Venipuncture / Unknown 03/04/2025 8:42 AM EDT 03/04/2025 8:53 AM EDT [facility] - 03/04/2025 9:30 AM EDT GFR Categories in Chronic Kidney Disease (CKD) GFR Category GFR (mL/min/1.73) Interpretation G1 90 or greater Normal or high (1) G2 60-89 Mild decrease (1) G3a 45-59 Mild to moderate decrease G3b 30-44 Moderate to severe decrease G4 15-29 Severe decrease G5 14 or less Kidney failure (1)In the absence of evidence of kidney disease, neither GFR category G1 or G2 fulfill the criteria for CKD. eGFR calculation 2020 CKD-EPI creatinine equation, which does not include race as a factor us Mack Prince DO LAB BLOOD ORDERABLES Final R esult [facility]
[address] [place] [address], * (ABNORMAL) CBC Auto Differential (03/04/2025 8:42 AM EDT) [facility] Signature WBC 11.08(H) 3.40 - 10.80 10*3/mm3 03/04/2025 9:05 AM EDT [facility] RBC 4.06(L) 4.14 - 5.80 10*6/mm3 03/04/2025 9:05 AM EDT [facility] Hemoglobin 12.6(L) 13.0 - 17.7 g/dL 03/04/2025 9:05 AM EDT [facility] Hematocrit 39.3 37.5 - 51.0 % 03/04/2025 9:05 AM EDT [facility] MCV 96.8 79.0 - 97.0 fL 03/04/2025 9:05 AM EDT [facility] MCH 31.0 26.6 - 33.0 pg 03/04/2025 9:[facility] MCHC 32.1 31.5 - 35.7 g/dL 03/04/2025 9:[facility] RDW 15.3 12.3 - 15.4 % 03/04/2025 9:05 AM T [facility] RDW-SD 54.4(H) 37.0 - 54.0 fl 03/04/2025 9:05 AM EDT [facility] MPV 9.8 6.0 - 12.0 fL 03/04/2025 9:05 AM EDT [facility] Platelets 222 140 - 450 10*3/mm3 03/04/2025 9:05 AM EDT [facility] Neutrophil % 73.6 42.7 - 76.0 % 03/04/2025 9:05 AM EDT [facility] Lymphocyte % 9.9(L) 19.6 - 45.3 % 03/04/2025 9:05 AM EDT [facility] Monocyte % 10.4 5.0 - 12.0 % 03/04/2025 9:05 AM EDT [facility] Eosinophil % 5.0 0.3 - 6.2 % 03/04/2025 9:05 AM EDT [facility] Basophil % 0.5 0.0 - 1.5 % 03/04/2025 9:05 AM EDT [facility] Immature Grans % 0.6(H) 0.0 - 0.5 % 03/04/2025 9:05 AM EDT [facility] Neutrophils, Absolute 8.15(H) 1.70 - 7.00 10*3/mm3 03/04/2025 9:05 AM EDT [facility] Lymphocytes, Absolute 1.10 0.70 - 3.10 10*3/mm3 03/04/2025 9:05 AM EDT [facility] Monocytes, Absolute 1.15(H) 0.10 - 0.90 10*3/mm3 03/04/2025 9:05 AM EDT [facility] Eosinophils, Absolute 0.55(H) 0.00 - 0.40 10*3/mm3 03/04/2025 9:05 AM EDT [facility] Basophils, Absolute 0.06 0.00 - 0.20 10*3/mm3 03/04/2025 9:05 AM EDT [facility] Immature Grans, Absolute 0.07(H) 0.00 - 0.05 10*3/mm3 03/04/2025 9:05 AM EDT [facility] nRBC 0.0 0.0 - 0.2 /100 WBC 03/04/2025 9:05 AM T [facility] Blood Venipuncture / Unknown 03/04/2025 8:42 AM EDT 03/04/2025 8:52 AM EDT us Mack Prince DO LAB BLOOD ORDERABLES Final R esult [facility]
[address] [place] [address], * (ABNORMAL) Lipid Panel (03/04/2025 8:42 AM EDT) Total Cholesterol 142 0 - 200 mg/dL 03/04/2025 9:30 AM EDT [facility] Triglycerides 103 0 - 150 mg/dL 03/04/2025 9:30 AM EDT [facility] HDL Cholesterol 34(L) 40 - 60 mg/dL 03/04/2025 9:30 AM EDT [facility] LDL Cholesterol 89 0 - 100 mg/dL 03/04/2025 9:30 AM EDT [facility] VLDL Cholesterol 19 5 - 40 mg/dL 03/04/2025 9:30 AM EDT [facility] LDL/HDL Ratio 2.57 03/04/2025 9:30 AM EDT [facility] Blood Venipuncture / Unknown 03/04/2025 8:42 AM EDT 03/04/2025 8:53 AM EDT Narrative [facility] - 03/04/2025 9:30 AM EDT Cholesterol Reference Ranges (U.S. Department of Health and Human Services ATP III Classifications) Desirable <200 mg/dL Borderline High 200-239 mg/dL High Risk >240 mg/dL Triglyceride Reference Ranges (U.S. Department of Health and Human Services ATP III Classifications) Normal <150 mg/dL Borderline High 150-199 mg/dL High 200-499 mg/dL Very High >500 mg/dL HDL Reference Ranges (U.S. Department of Health and Human Services ATP III Classifications) Low <40 mg/dl (major risk factor for CHD) High >60 mg/dl ('negative' risk factor for CHD) LDL Reference Ranges (U.S. Department of Health and Human Services ATP III Classifications) Optimal <100 mg/dL Near Optimal 100-129 mg/dL Borderline High 130-159 mg/dL High 160-189 mg/dL Very High >189 mg/dL LDL is calculated using the NIH LDL-C calculation. Mer Dove APRN LAB BLOOD ORDERABLES Sarah antunez Result [facility]
[address] [place] [address], * (ABNORMAL) Hemoglobin A1c (03/04/2025 8:42 AM EDT) Hemoglobin A1C 6.62(H) 4.80 - 5.60 % 03/04/2025 9:32 AM EDT [facility] Blood Venipuncture / Unknown 03/04/2025 8:42 AM EDT 03/04/2025 8:53 AM EDT Narrative [facility] - 03/04/2025 9:32 AM EDT Hemoglobin A1C Ranges: Increased Risk for Diabetes 5.7% to 6.4% Diabetes >= 6.5% Diabetic Goal < 7.0% Mer Dove APRN LAB BLOOD ORDERABLES Sarah l Result [facility]
[address] [place] [address], * POC Glucose Once (03/04/2025 5:52 AM EDT) Glucose 105 70 - 130 mg/dL 03/04/2025 5:54 AM EDT [facility] Blood 03/04/2025 5:52 AM EDT 03/04/2025 5:54 AM EDT Willy Santoyo MD POINT OF CARE TEST ORDERABLES Final Result [facility]
[address] [place] [address], * (ABNORMAL) POC Glucose Once (03/04/2025 12:31 AM EDT) Glucose 145(H) 70 - 130 mg/dL 03/04/2025 12:33 AM EDT [facility] Blood 03/04/2025 12:3 1 AM EDT 03/04/2025 12:33 AM EDT us Mack Prince DO POINT OF CARE TEST ORDERABLE S Final Result Performing Organization Address [facility] [address]/ZIP Co de Phone Number [facility]
[address] [place] [address], * Magnesium (03/03/2025 10:22 PM EDT) Magnesium 2.2 1.6 - 2.4 mg/dL 03/03/2025 11:12 PM EDT [facility] Blood Venipuncture / Unknown 03/03/2025 10:22 PM EDT 03/03/2025 10:42 PM EDT us Mack Prince DO LAB BLOOD ORDERABLES Final R esult Performing Organization Address [facility] [address]/[facility] Co de Phone Number [facility]
[address] [place] [address], * Potassium (03/03/2025 10:22 PM EDT) Potassium 3.8 3.5 - 5.2 mmol/L 03/03/2025 11:12 PM EDT [facility] Blood Venipuncture / Unknown 03/03/2025 10:22 PM EDT 03/03/2025 10:42 PM EDT us Mack Prince DO LAB BLOOD ORDERABLES Final R esult Performing Organization Address [facility] [address]/[facility] Co de Phone Number [facility]
[address] [place] [address], * ECG 12 Lead Stroke Evaluation (03/03/2025 9:10 PM EDT) QT Interval 414 ms BH ECG QTC Interval 471 ms ECG 03/03/2025 9:10 PM EDT 03/09/2025 8:58 PM EDT Narrative BH ECG - 03/09/2025 8:59 PM EDT Test Reason : Stroke Evaluation Blood Pressure : */* mmHG Vent. Rate : 78 BPM Atrial Rate : 93 BPM P-R Int : * ms QRS Dur : 104 ms QT Int : 414 ms P-R-T Axes : * -19 7 degrees QTcB Int : 471 ms Atrial fibrillation Abnormal ECG No previous ECGs available Confirmed by Scotty Perez ([id number]) on 03/09/2025 8:58:58 PM Referred By: Confirmed By: Scotty Perez Procedure Note Scotty Perez MD - 03/09/2025 Test Reason : Stroke Evaluation Blood Pressure : */* mmHG Vent. Rate : 78 BPM Atrial Rate : 93 BPM P-R Int : * ms QRS Dur : 104 ms QT Int : 414 ms P-R-T Axes : * -19 7 degrees QTcB Int : 471 ms Atrial fibrillation Abnormal ECG No previous ECGs available Confirmed by Scotty Perez ([id number]) on 03/09/2025 8:58:58 PM Referred By: Confirmed By: Scotty Perez us Mer Dove FIRE PREVENTION INSPECTOR ECG ORDERABLES Final Res ult BH ECG * MRI Lumbar Spine Without Contrast (03/03/2025 7:53 PM EDT) Anatomical Region Laterality Modality Spine, L-spine N/A Magnetic Resonan ce 03/04/2025 5:53 AM EDT Impressions 03/04/2025 5:55 AM EDT Impression: Generally mild lumbar spondylosis is present as above, including a small annular fissure at L4-5, potentially a source of acute axial back pain. There is no evidence of associated high-grade spinal canal or neuroforaminal impingement. Electronically Signed: Prince Aly MD 03/04/2025 5:55 AM EDT Workstation ID: [id number] Narrative 03/04/2025 5:55 AM EDT MRI LUMBAR SPINE WO CONTRAST Date of Exam: 03/03/2025 7:32 PM EDT Indication: RLE pain and weakness, new loss bowel control. Comparison: None available. Technique: Routine multiplanar/multisequence sequence images of the lumbar spine were obtained without contrast administration. Findings: T1 marrow signal is preserved, without evidence of fracture or suspicious marrow replacing lesion. Alignment is anatomic, without evidence of significant listhesis or subluxation. The conus medullaris and cauda equina nerve roots are satisfactory in appearance. The paraspinal soft tissues demonstrate no acute or suspicious findings. Multilevel spondylosis is present, with areas of involvement including L1-2, no significant spinal canal or neuroforaminal impingement. L2-3, no significant spinal canal or neuroforaminal impingement. L3-4, no significant spinal canal or neuroforaminal impingement. L4-5, small disc bulge in addition to a focal zone of hyperintensity/annular fissure seen dorsally. There is minimal spinal canal narrowing. The neural foramina remain patent. L5-S1, small circumferential disc bulge and bilateral facet arthropathy. There is mild spinal canal and bilateral neuroforaminal narrowing. Procedure Note Ed Aly MD - 03/04/2025 MRI LUMBAR SPINE WO CONTRAST Date of Exam: 03/03/2025 7:32 PM EDT Indication: RLE pain and weakness, new loss bowel control. Comparison: None available. Technique: Routine multiplanar/multisequence sequence images of thelumbar spine were obtained without contrast administration. Findings: T1 marrow signal is preserved, without evidence of fracture or suspiciousmarrow replacing lesion. Alignment is anatomic, without evidence ofsignificant listhesis or subluxation. The conus medullaris and caudaequina nerve roots are satisfactory in appearance. The paraspinal soft tissues demonstrate no acute or suspiciousfindings. Multilevel spondylosis is present, with areas of involvementincluding L1-2, no significant spinal canal or neuroforaminal impingement. L2-3, no significant spinal canal or neuroforaminal impingement. L3-4, no significant spinal canal or neuroforaminal impingement. L4-5, small disc bulge in addition to a focal zone ofhyperintensity/annular fissure seen dorsally. There is minimal spinalcanal narrowing. The neural foramina remain patent. L5-S1, small circumferential disc bulge and bilateral facet arthropathy.There is mild spinal canal and bilateral neuroforaminal narrowing. IMPRESSION: Impression: Generally mild lumbar spondylosis is present as above, including a smallannular fissure at L4-5, potentially a source of acute axial back pain.There is no evidence of associated high-grade spinal canal orneuroforaminal impingement. Electronically Signed: Prince Aly MD 03/04/2025 5:55 AM EDT Workstation ID: [id number] Mer Dove FIRE PREVENTION INSPECTOR IMG MRI ORDERABLES Final Result * MRI Brain Without Contrast (03/03/2025 7:53 PM EDT) Anatomical Region Laterality Modality Head, Neck N/A Magnetic Resonan ce 03/03/2025 9:07 PM EDT Impressions 03/03/2025 9:09 PM EDT Impression: 1.No evidence of hemorrhage, mass effect or midline shift. No evidence of recent or acute ischemia. 2.Very mild periventricular and subcortical FLAIR signal changes likely related to chronic microvascular ischemic change. Electronically Signed: Sloane Licea MD 03/03/2025 9:09 PM EDT Workstation ID: [id number] Narrative 03/03/2025 9:09 PM EDT MRI BRAIN WO CONTRAST Date of Exam: 03/03/2025 7:32 PM EDT Indication: Stroke, follow up right sided weakness. Comparison: None available. Technique: Routine multiplanar/multisequence sequence images of the brain were obtained without contrast administration. Findings: There is no diffusion restriction to suggest acute infarct. There is no evidence of acute or chronic intracranial hemorrhage. No mass effect or midline shift. No abnormal extra-axial collections. Very mild periventricular and subcortical FLAIR signal changes are present. The major vascular flow voids appear intact. The basal ganglia, brainstem and cerebellum appear within normal limits. Calvarial and superficial soft tissue signal is within normal limits. Orbits appear unremarkable. The paranasal sinuses and the mastoid air cells appear well aerated. Midline structures are intact. Procedure Note Sloane Licea MD - 03/03/2025 MRI BRAIN WO CONTRAST Date of Exam: 03/03/2025 7:32 PM EDT Indication: Stroke, follow up right sided weakness. Comparison: None available. Technique: Routine multiplanar/multisequence sequence images of the brainwere obtained without contrast administration. Findings: There is no diffusion restriction to suggest acute infarct. There is noevidence of acute or chronic intracranial hemorrhage. No mass effect ormidline shift. No abnormal extra-axial collections. Very mildperiventricular and subcortical FLAIR signal changes are present. The major vascular flow voids appear intact. Thebasal ganglia, brainstem and cerebellum appear within normal limits.Calvarial and superficial soft tissue signal is within normal limits.Orbits appear unremarkable. The paranasal sinuses and the mastoid air cells appear well aerated. Midline structuresare intact. IMPRESSION: Impression: 1.No evidence of hemorrhage, mass effect or midline shift. No evidence ofrecent or acute ischemia. 2.Very mild periventricular and subcortical FLAIR signal changes likelyrelated to chronic microvascular ischemic change. Electronically Signed: Sloane Licea MD 03/03/2025 9:09 PM EDT Workstation ID: [id number] Mer Dove APRN IMG MRI ORDERABLES Final Result * POC Glucose Once (03/03/2025 5:45 PM EDT) Glucose 118 70 - 130 mg/dL 03/03/2025 5:46 PM EDT [facility] Blood 03/03/2025 5:45 PM EDT 03/03/2025 5:46 PM EDT Mack Prince DO POINT OF CARE TEST ORDERABLE S Final Result [facility]
[address] [place] [address], * XR Outside Chest (03/02/2025 12:15 AM EDT) Narrative SYSTEMGENERATED, DOCUMENTATION - 03/03/2025 6:13 PM EDT This procedure was auto-finalized with no dictation required. us Radiant Outside Films IMG DIAGNOSTIC IMAGING ORD ERABLES Final Result * CT Outside Chest (03/02/2025 12:10 AM EDT) Narrative SYSTEMGENERATED, DOCUMENTATION - 03/03/2025 6:06 PM EDT This procedure was auto-finalized with no dictation required. us Radiant Outside Films IMG CT ORDERABLES Final Re sult * CT Outside Films (03/02/2025 12:05 AM EDT) Narrative SYSTEMGENERATED, DOCUMENTATION - 03/03/2025 6:01 PM EDT This procedure was auto-finalized with no dictation required. Result [facility] us Mer Dove APRN IMG CT ORDERABLES Final R esult * CT Outside Films (03/02/2025 12:00 AM EDT) Narrative SYSTEMGENERATED, DOCUMENTATION - 03/03/2025 5:53 PM EDT This procedure was auto-finalized with no dictation required. Result Gavino Dove APRN IMG CT ORDERABLES Final R esult documented in this encounter Visit Diagnoses Diagnosis Stroke-like symptoms- Primary Rheumatoid arthritis, involving unspecified site, unspecified whether rheumatoid factor present Chronic anticoagulation Encounter for long-term (current) use of anticoagulants Type 2 diabetes mellitus with hyperglycemia, without long-term current use of insulin Stenosis of left carotid artery Occlusion and stenosis of carotid artery without mention of cerebral infarction PAF (paroxysmal atrial fibrillation) Atrial fibrillation Primary hypertension Unspecified essential hypertension RA (rheumatoid arthritis) Rheumatoid arthritis Immunosuppression due to drug therapy Malignant melanoma Melanoma of skin, site unspecified Chronic diastolic CHF (congestive heart failure) C. difficile diarrhea Intestinal infection due to clostridium difficile Right sided weakness documented in this encounter Admitting Diagnoses Diagnosis Stroke-like symptoms Right sided weakness documented in this encounter Administered Medications Inactive Administered Medications - up to 3 most [...] = Pain Score of 7-10, CPOT 5-8 Given 03/05/2025 8:43 AM EDT 650 mg Given 03/05/2025 3:38 AM EDT 650 mg Given 03/04/2025 9:00 PM EDT 650 mg aluminum-magnesium hydroxide-simethicone (MAALOX MAX) 400-400-40 MG/5ML suspension 15 mL 15 mL, Oral, Every 6 Hours PRN, Heartburn, Starting on 03/03/25 at 1549, Maximum 60 mL in 24 hours. apixaban (ELIQUIS) tablet 5 mg 5 mg, Oral, Every 12 Hours Scheduled, First dose on 03/03/25 at 2100, Tablet may be crushed and suspended in 60 mL of water or D5W and immediately delivered via NG tube., Indications: Atrial Fibrillation - requiring full anticoagulationIndications:Atrial Fibrillation - requiring full anticoagulation Given 03/08/2025 8:56 AM EDT 5 mg Given 03/07/2025 9:59 PM EDT 5 mg Given 03/07/2025 8:08 AM EDT 5 mg aspirin chewable tablet 81 mg 81 mg, Oral, Daily, First dose on 03/04/25 at 0900, If patient fails dysphagia, CT option MUST be given. Do not exceed 4 grams of aspirin in a 24 hr period. If given for pain, use the following pain scale: Mild Pain = Pain Score of 1-3, CPOT 1-2 Moderate Pain = Pain Score of 4-6, CPOT 3-4 Severe Pain = Pain Score of 7-10, CPOT 5-8 Given 03/08/2025 8:56 AM EDT 81 mg Given 03/07/2025 8:08 AM EDT 81 mg Given 03/06/2025 8:24 AM EDT 81 mg aspirin suppository 300 mg 300 mg, Rectal, Daily, First dose on Wed03/04/25 at 0900, If patient fails dysphagia, CT option MUST be given. Do not exceed [...] 80 mg, Oral, Nightly, First dose on Wed03/03/25 at 2100, Avoid grapefruit juice. Given 03/07/2025 9:59 PM EDT 80 mg Given 03/06/2025 8:32 PM EDT 80 mg Given 03/05/2025 8:44 PM EDT 80 mg bisacodyl (DULCOLAX) EC tablet 5 mg 5 mg, Oral, Daily PRN, Constipation, Use if polyethylene glycol is ineffective, Starting on Wed03/07/25 at 1156, Use if no bowel movement after 12 hours. Swallow whole. Do not crush, split, or chew tablet. Given 03/08/2025 8:56 AM EDT 5 mg bisacodyl (DULCOLAX) suppository 10 mg 10 mg, Rectal, Daily PRN, Constipation, Use if bisacodyl oral is ineffective, Starting on Wed03/07/25 at 1156, Use if no bowel movement after 12 hours. Hold for diarrhea Given 03/08/2025 10:19 AM EDT 10 mg bumetanide (BUMEX) tablet 1 mg 1 mg, Oral, Every Morning, First dose on Wed03/07/25 at 0700, Hold for SBP less than 100, DBP less than 60. Take with food if GI upset occurs. Given 03/08/2025 6:31 AM EDT 1 mg Given 03/07/2025 8:08 AM EDT 1 mg Calcium Replacement - Follow Nurse / BPA Driven Protocol Open Order & Select [facility] Electrolyte Replacement Protocol Algorithm to View Details carvedilol (COREG) tablet 6.25 mg 6.25 mg, Oral, 2 Times Daily With Meals, First dose on Wed03/06/25 at 1800, Hold for SBP less than 100, DBP less than 60, or heart rate less than 50. If a dose is held, please contact the provider. Give with food. Given 03/08/2025 8:56 AM EDT 6.25 mg Given 03/07/2025 5:49 PM EDT 6.25 mg Given 03/07/2025 8:08 AM EDT 6.25 mg cyanocobalamin injection 1,000 mcg 1,000 mcg, Intramuscular, Daily, First dose on Wed03/06/25 at 1630, For 7 days Given 03/08/2025 8:56 AM EDT 1,000 mcg Right Deltoid Given 03/07/2025 8:08 AM EDT 1,000 mcg Ri ght Deltoid cyclobenzaprine (FLEXERIL) tablet 10 mg 10 mg, Oral, Once, On Wed03/05/25 at 0745, For 1 dose Given 03/05/2025 8:44 AM EDT 10 mg gadobenate dimeglumine (MULTIHANCE) injection 20 mL 20 mL, Intravenous, Once in Imaging, On Wed03/05/25 at 2345, For 1 dose, Vesicant; admin as rapid bolus; flush with 5 mL NS after admin or 20 mL for renal or aortoiliofemoral vasculature Given 03/05/2025 10:54 PM EDT 20 mL HYDROcodone-acetaminophen (NORCO) 5-325 MG per tablet 1 tablet 1 tablet, Oral, Every 6 Hours PRN, Moderate Pain, Starting on Wed03/05/25 at 1556, For 5 days, Based on patient request - if ordered for moderate or severe pain, provider allows for administration of a medication prescribed for a lower pain scale. [CAROLYN] Do not exceed 4 grams of acetaminophen in a 24 hr period. Max dose of 2gm for AST/ALT greater than 120 units/L If given for pain, use the following pain scale: Mild Pain = Pain Score of 1-3, CPOT 1-2 Moderate Pain = Pain Score of 4-6, CPOT 3-4 Severe Pain = Pain Score of 7-10, CPOT 5-8 Given 03/08/2025 6:34 AM EDT 1 tablet Given 03/07/2025 10:03 PM EDT 1 tablet Given 03/07/2025 3:11 PM EDT 1 tablet Magnesium Standard Dose Replacement - Follow Nurse / BPA Driven Protocol Open Order & Select [facility] Electrolyte Replacement Protocol Algorithm to View Details melatonin tablet 5 mg 5 mg, Oral, Nightly, First dose on 03/03/25 at 2100 Given 03/07/2025 9:59 PM EDT 5 mg Given 03/06/2025 8:33 PM EDT 5 mg Given 03/05/2025 8:44 PM EDT 5 mg ondansetron (ZOFRAN) injection 4 mg 4 mg, Intravenous, Every 6 Hours PRN, Nausea, Vomiting, Starting on 03/03/25 at 1549, If BOTH ondansetron (ZOFRAN) and promethazine (PHENERGAN) are ordered use ondansetron first and THEN promethazine IF ondansetron is ineffective. Pharmacy Consult Continuous PRN, Starting on 03/03/25 at 1643, Until Tabatha 03/08/25 at 1723, Consult, Consult for: Consult for: Pharmacy to change proton pump inhibitor order to famotidine (unless documented GI bleed OR history of GI bleed). Also, pharmacy to discontinue all antiperistaltic agents and stool softeners/laxatives. Phosphorus Replacement - Follow Nurse / BPA Driven Protocol Open Order & Select [facility] Electrolyte Replacement Protocol Algorithm to View Details polyethylene glycol (MIRALAX) packet 17 g 17 g, Oral, Daily PRN, Constipation, Use if senna-docusate is ineffective, Starting on 03/07/25 at 1156, Use if no bowel movement after 12 hours. Mix in 6-8 ounces of water. Use 4-8 ounces of water, tea, or juice for each 17 gram dose. Given 03/08/2025 8:56 AM EDT 17 g Given 03/07/2025 12:11 PM EDT 17 g Potassium Replacement - Follow Nurse / BPA Driven Protocol Open Order & Select [facility] Electrolyte Replacement Protocol Algorithm to View Details predniSONE (DELTASONE) tablet 2 mg 2 mg, Oral, Daily, First dose on 03/04/25 at 1845, Take with food. Given 03/08/2025 8:56 AM EDT 2 mg Given 03/07/2025 8:08 AM EDT 2 mg Given 03/06/2025 8:24 AM EDT 2 mg sennosides-docusate (PERICOLACE) 8.6-50 MG per tablet 2 tablet 2 tablet, Oral, 2 Times Daily, First dose on Wed03/07/25 at 1245, HOLD MEDICATION IF PATIENT HAS HAD BOWEL MOVEMENT. Start bowel management regimen if patient has not had a bowel movement after 12 hours. Given 03/08/2025 8:56 AM EDT 2 tablets Given 03/07/2025 9:59 PM EDT 2 tablets Given 03/07/2025 12:11 PM EDT 2 tablets sodium chloride 0.9 % flush 10 mL 10 mL, Intravenous, Every 12 Hours Scheduled, First dose on Wed03/03/25 at 2100 Given 03/06/2025 8:24 AM EDT 10 mL Given 03/05/2025 8:44 PM EDT 10 mL Given 03/05/2025 8:44 AM EDT 10 mL sodium chloride 0.9 % flush 10 mL 10 mL, Intravenous, As Needed, Line Care, Starting on Wed03/03/25 at 1501 sodium chloride 0.9 % flush 10 mL 10 mL, Intravenous, Every 12 Hours Scheduled, First dose on Wed03/03/25 at 2100 Given 03/06/2025 8:24 AM EDT 10 mL Given 03/05/2025 8:44 PM EDT 10 mL Given 03/05/2025 8:44 AM EDT 10 mL sodium chloride 0.9 % infusion 40 mL 40 mL, Intravenous, at 100 mL/hr, As Needed, Line Care, Starting on 03/03/25 at 1501, Following administration of an IV intermittent medication, flush line with 40mL NS at 100mL/hr. sulfaSALAzine (AZULFIDINE) tablet 1,000 mg 1,000 mg, Oral, Every 12 Hours Scheduled, First dose on Wed03/04/25 at 2100, Caution: Look alike/sound alike drug alert., On hold since Wed03/05/2025 at 1523 until manually unheld Given 03/05/2025 8:43 AM EDT 1,000 mg Given 03/04/2025 9:00 PM EDT 1,000 mg traMADol (ULTRAM) tablet 50 mg 50 mg, Oral, Every 8 Hours PRN, Moderate Pain, Starting on Wed03/05/25 at 1100, For 5 days, Based on patient request - if ordered for moderate or severe pain, provider allows for administration of a medication prescribed for a lower pain scale. (CAROLYN) Caution: Look alike/sound alike drug alert If given for pain, use the following pain scale: Mild Pain = Pain Score of 1-3, CPOT 1-2 Moderate Pain = Pain Score of 4-6, CPOT 3-4 Severe Pain = Pain Score of 7-10, CPOT 5-8 Given 03/08/2025 11:37 AM EDT 50 mg Given 03/07/2025 6:49 PM EDT 50 mg Given 03/06/2025 5:53 AM EDT 50 mg vancomycin (VANCOCIN) capsule 125 mg 125 mg, Oral, Every 6 Hours Scheduled, First dose on 03/03/25 at 1800, For 10 days, Do not crush or chew the capsules or tablets. Contact Pharmacy if needed., Indications: Clostridioides Difficile ColitisIndications:Clostridioides Difficile Colitis Given 03/06/2025 5:53 AM EDT 125 mg Given 03/05/2025 11:29 PM EDT 125 mg Given 03/05/2025 5:10 PM EDT 125 mg documented in this encounter Active and Recently Administered Medications Times are shown in EDT. Scheduled Medication Order 03/06/2025 03/07/2025 03/08/2025 apixaban (ELIQUIS) tablet 5 mg 5 mg, Oral, Every 12 Hours Scheduled, First dose on 03/03/25 at 2100, Tablet may be crushed and suspended in 60 mL of water or D5W and immediately delivered via NG tube., Indications: Atrial Fibrillation - requiring full anticoagulation 823 (Given - Provider: Antoine Gongora RN)2031 (Given - Provider: Amira Dale, RAND) 08 (Given - Provider: Antoine Gongora RN)2158 (Given - Provider: Amira Dale RN) 0856 (Given - Provider: Zayda Mcgee RN) aspirin chewable tablet 81 mg(Linked Group 1) 81 mg, Oral, Daily, First dose on 03/04/25 at 0900, If patient fails dysphagia, CT option MUST be given. Do not exceed 4 grams of aspirin in a 24 hr period. If given for pain, use the following pain scale: Mild Pain = Pain Score of 1-3, CPOT 1-2 Moderate Pain = Pain Score of 4-6, CPOT 3-4 Severe Pain = Pain Score of 7-10, CPOT 5-8 0824 (Given - Provider: Antoine Gongora RN) 0808 (Given - Provider: Antoine Gongora RN) 0856 (Given - Provider: Zayda Mcgee, RAND) aspirin suppository 300 mg(Linked Group 1) 300 mg, Rectal, Daily, First dose on Wed03/04/25 at 0900, If patient fails dysphagia, CT option MUST be given. Do not exceed 4 grams of aspirin in a 24 hr period. If given for pain, use the following pain scale: Mild Pain = Pain Score of 1-3, CPOT 1-2 Moderate Pain = Pain Score of 4-6, CPOT 3-4 Severe Pain = Pain Score of 7-10, CPOT 5-8 0824 (Not Given: See Alt - Provider: Antoine Gongora RN) 0808 (Not Given: See Alt - Provider: Antoien Gongora RN) 0856 (Not Given: See Alt - Provider: Zayda Mcgee, RAND) atorvastatin (LIPITOR) tablet 80 mg 80 mg, Oral, Nightly, First dose on Wed03/03/25 at 2100, Avoid grapefruit juice. 2031 (Given - Provider: Amira Dale, RAND) 2158 (Given - Provider: Amira Dale, RAND) bumetanide (BUMEX) tablet 1 mg 1 mg, Oral, Every Morning, First dose on Wed03/07/25 at 0700, Hold for SBP less than 100, DBP less than 60. Take with food if GI upset occurs. 0808 (Given - Provider: Antoine Gongora RN) 0631 (Given - Provider: Amira Dale, RAND) carvedilol (COREG) tablet 6.25 mg 6.25 mg, Oral, 2 Times Daily With Meals, First dose on Wed03/06/25 at 1800, Hold for SBP less than 100, DBP less than 60, or heart rate less than 50. If a dose is held, please contact the provider. Give with food. 183 (Given - Provider: Antoine Gongora RN) 0808 (Given - Provider: Antoine Gongora RN)174 (Given - Provider: Shanique Olguin RN) 0856 (Given - Provider: Zayda Mcgee, RN) cyanocobalamin injection 1,000 mcg 1,000 mcg, Intramuscular, Daily, First dose on Wed03/06/25 at 1630, For 7 days 1630 (Due) 0808 (Given - Provider: Antoine Gongora, RAND) 0856 (Given - Provider: Zayda Mcgee, RN) melatonin tablet 5 mg 5 mg, Oral, Nightly, First dose on Wed03/03/25 at 2100 2032 (Given - Provider: Amira Dale, RN) 2158 (Given - Provider: Amira Dale, RN) predniSONE (DELTASONE) tablet 2 mg 2 mg, Oral, Daily, First dose on Wed03/04/25 at 1845, Take with food. 0824 (Given - Provider: Antoine Gongora RN) 0808 (Given - Provider: Antoine Gongora, RAND) 0856 (Given - Provider: Zayda Mcgee, RAND) sennosides-docusate (PERICOLACE) 8.6-50 MG per tablet 2 tablet(Linked Group 2) 2 tablet, Oral, 2 Times Daily, First dose on Wed03/07/25 at 1245, HOLD MEDICATION IF PATIENT HAS HAD BOWEL MOVEMENT. Start bowel management regimen if patient has not had a bowel movement after 12 hours. 1211 (Given - Provider: Antoine Gongora RN)2158 (Given - Provider: Amira Dale, RN) 0856 (Given - Provider: Zayda Mcgee, RN) sodium chloride 0.9 % flush 10 mL (CANCELED) 10 mL, Intravenous, Every 12 Hours Scheduled, First dose on 03/03/25 at 2100 0824 (Given - Provider: Antoine Gongora, RAND)2036 (Not Given - Provider: Amira Dale, RN - Reason: Loss of IV access) sodium chloride 0.9 % flush 10 mL (CANCELED) 10 mL, Intravenous, Every 12 Hours Scheduled, First dose on 03/03/25 at 2100 0824 (Given - Provider: Antoine Gongora, RAND) sulfaSALAzine (AZULFIDINE) tablet 1,000 mg 1,000 mg, Oral, Every 12 Hours Scheduled, First dose on 03/04/25 at 2100, Caution: Look alike/sound alike drug alert., On hold since Wed03/05/2025 at 1523 until manually unheld 0900 (Dose Auto Held - Provider: Allison Zaragoza MD)2100 (Dose Auto Held - Provider: Allison Zaragoza MD) 0900 (Dose Auto Held - Provider: Allison Zaragoza MD)2100 (Dose Auto Held - Provider: Allison Zaragoza MD) 0900 (Dose Auto Held - Provider: Allison Zaragoza MD)1723 (Unheld by provider - Provider: Automatic Discharge Provider) vancomycin (VANCOCIN) capsule 125 mg (CANCELED) 125 mg, Oral, Every 6 Hours Scheduled, First dose on 03/03/25 at 1800, For 10 days, Do not crush or chew the capsules or tablets. Contact Pharmacy if needed., Indications: Clostridioides Difficile Colitis 0553 (Given - Provider: Janneth Rowe RN) PRN Medication Order 03/06/2025 03/07/2025 03/08/2025 acetaminophen (TYLENOL) tablet 650 mg 650 mg, [...] if polyethylene glycol is ineffective, Starting on Wed03/07/25 at 1156, Use if no bowel movement after 12 hours. Swallow whole. Do not crush, split, or chew tablet. 0856 (Given - Provider: Zayda Mcgee, RN) bisacodyl (DULCOLAX) suppository 10 mg(Linked Group 2) 10 mg, Rectal, Daily PRN, Constipation, Use if bisacodyl oral is ineffective, Starting on 03/07/25 at 1156, Use if no bowel movement after 12 hours. Hold for diarrhea 1019 (Given - Provider: Zayda Mcgee, RN) Calcium Replacement - Follow Nurse / BPA Driven Protocol Open Order & Select [facility] Electrolyte Replacement Protocol Algorithm to View Details HYDROcodone-acetaminophen (NORCO) 5-325 MG per tablet 1 tablet 1 tablet, Oral, Every 6 Hours PRN, Moderate Pain, Starting on 03/05/25 at 1556, For 5 days, Based on patient request - if ordered for moderate or severe pain, provider allows for administration of a medication prescribed for a lower pain scale. [CAROLYN] Do not exceed 4 grams of acetaminophen in a 24 hr period. Max dose of 2gm for AST/ALT greater than 120 units/L If given for pain, use the following pain scale: Mild Pain = Pain Score of 1-3, CPOT 1-2 Moderate Pain = Pain Score of 4-6, CPOT 3-4 Severe Pain = Pain Score of 7-10, CPOT 5-8 0849 (Given - Provider: Antoine Gongora RN)1512 (Given - Provider: Britt Guerra RN) 0046 (Given - Provider: Amira Dale, RN)0808 (Given - Provider: Antoine Gongora RN)1511 (Given - Provider: Shanique Olguin RN)2203 (Given - Provider: Amira Dale, RN) 0634 (Given - Provider: Amira Dale, RN) Magnesium Standard Dose Replacement - Follow Nurse / BPA Driven Protocol Open Order & Select [facility] Electrolyte Replacement Protocol Algorithm to View Details ondansetron (ZOFRAN) injection 4 mg 4 mg, Intravenous, Every 6 Hours PRN, Nausea, Vomiting, Starting on 03/03/25 at 1549, If BOTH ondansetron (ZOFRAN) and promethazine (PHENERGAN) are ordered use ondansetron first and THEN promethazine IF ondansetron is ineffective. Pharmacy Consult Continuous PRN, Starting on 8/16/25 at 1643, Until Tabatha 03/08/25 at 1723, Consult, Consult for: Consult for: Pharmacy to change proton pump inhibitor order to famotidine (unless documented GI bleed OR history of GI bleed). Also, pharmacy to discontinue all antiperistaltic agents and stool softeners/laxatives. Phosphorus Replacement - Follow Nurse / BPA Driven Protocol Open Order & Select [facility] Electrolyte Replacement Protocol Algorithm to View Details polyethylene glycol (MIRALAX) packet 17 g(Linked Group 2) 17 g, Oral, Daily PRN, Constipation, Use if senna-docusate is ineffective, Starting on 03/07/25 at 1156, Use if no bowel movement after 12 hours. Mix in 6-8 ounces of water. Use 4-8 ounces of water, tea, or juice for each 17 gram dose. 1211 (Given - Provider: Antoine Gongora RN) 0856 (Given - Provider: Zayda Mcgee RN) Potassium Replacement - Follow Nurse / BPA Driven Protocol Open Order & Select [facility] Electrolyte Replacement Protocol Algorithm to View Details sodium chloride 0.9 % flush 10 mL 10 mL, Intravenous, As Needed, Line Care, Starting on 03/03/25 at 1501 sodium chloride 0.9 % infusion 40 mL 40 mL, Intravenous, at 100 mL/hr, As Needed, Line Care, Starting on 03/03/25 at 1501, Following administration of an IV intermittent medication, flush line with 40mL NS at 100mL/hr. traMADol (ULTRAM) tablet 50 mg 50 mg, Oral, Every 8 Hours PRN, Moderate Pain, Starting on 03/05/25 at 1100, For 5 days, Based on patient request - if ordered for moderate or severe pain, provider allows for administration of a medication prescribed for a lower pain scale. (CAROLYN) Caution: Look alike/sound alike drug alert If given for pain, use the following pain scale: Mild Pain = Pain Score of 1-3, CPOT 1-2 Moderate Pain = Pain Score of 4-6, CPOT 3-4 Severe Pain = Pain Score of 7-10, CPOT 5-8 4955 (Given - Provider: Janneth Rowe RN) 7696 (Given - Provider: Shanique Sharif, RN) 1137 (Given - Provider: Zayda Mcgee RN) Linked Groups Order Group 1: aspirin chewable tablet 81 mgJump to med 81 mg, Oral, Daily, First dose on Wed03/04/25 at 0900, If patient fails dysphagia, CT option MUST be given. Do not exceed [...] 300 mg, Rectal, Daily, First dose on Wed03/04/25 at 0900, If patient fails dysphagia, CT option MUST be given. Do not exceed [...] to med 2 tablet, Oral, 2 Times Daily, First dose on Wed03/07/25 at 1245, HOLD MEDICATION IF PATIENT HAS HAD BOWEL MOVEMENT. Start bowel management regimen if patient has not had a bowel movement after 12 hours. And polyethylene glycol (MIRALAX) packet 17 gJump to med 17 g, Oral, Daily PRN, Constipation, Use if senna-docusate is ineffective, Starting on Wed03/07/25 at 1156, Use if no bowel movement after 12 hours. Mix in 6-8 ounces of water. Use 4-8 ounces of water, tea, or juice for each 17 gram dose. And bisacodyl (DULCOLAX) EC tablet 5 mgJump to med 5 mg, Oral, Daily PRN, Constipation, Use if polyethylene glycol is ineffective, Starting on Wed03/07/25 at 1156, Use if no bowel movement after 12 hours. Swallow whole. Do not crush, split, or chew tablet. And bisacodyl (DULCOLAX) suppository 10 mgJump to med 10 mg, Rectal, Daily PRN, Constipation, Use if bisacodyl oral is ineffective, Starting on Wed03/07/25 at 1156, Use if no bowel movement after 12 hours. Hold for diarrhea documented in this encounter Additional Health Concerns Infection Onset Date Last Indicated Resolved Time C.difficile 03/06/2025 03/06/2025 03/07/2025 8:34 AM EDT documented as of this encounter Care Teams Air Defence Officer Relationship Specialty Start Date End Date Shahid Guthrie MD [facility] [address] [place] [address] PCP - General Internal Medicine 12/24/23 documented as of this encounter
--- OUTSIDE RECORDS SUMMARY | 2025-04-28 14:01 | XMS_ITS | Encounter Summary ---
Author Organization [facility] Address [address] [place] [address] Care Team Providers Care Sports Physical Therapist Name Role Phone Shahid Guthrie MD Primary Care Provider [phone] Reason for Visit * Reason Comments Med Refill Encounter Details Date Type Department Care Team (Late st Contact Info) Description 01/01/2025 Refill [facility] RHEUMATOLOGY [address] [address] Ok Richards MD [address] [phone] Social History Tobacco Use Types Packs/Day Years [...] PM EDT Need all labs done at [facility] this month for review prior to [...] Info) Description 05/22/2025 11:00 AM EST Appointment [facility] RHEUMATOLOGY DEXA [address] [phone] 05/22/2025 11:30 AM EST Office Visit [facility] RHEUMATOLOGY [address] [phone] Chris Aponte APRN [address] [address] documented as of this encounter Visit Diagnoses Not on filedocumented in this encounter Additional Health Concerns Infection Onset Date Last Indicated Resolved Time C.difficile 03/06/2025 03/06/2025 03/07/2025 8:34 AM EDT documented as of this encounter Care Teams Sports Physical Therapist Relationship Specialty Start Date End Date Shahid Guthrie MD 1210 [facility] [address] [place] [address] PCP - General Internal Medicine 12/24/23 documented as of this encounter
--- OUTSIDE RECORDS SUMMARY | 2025-04-28 14:02 | XMS_ITS | Encounter Summary ---
Author Organization [facility] Address [address] [place] [address] Care Team Providers Care Professional Employer Consultant Name Role Phone Shahid Guthrie MD Primary Care Provider [phone] Reason for Visit * Reason Onset Date Comments Advice Only 03/30/2025 Encounter Details Date Type Department Care Team (Late st Contact Info) Description 03/30/2025 Telephone [facility] RHEUMATOLOGY [address] [address] Ok Richards MD [address] [address] Advice Only Social History Tobacco Use Types Packs/Day Years Used Date Smoking Tobacco: Former Cigarettes Smokeless Tobacco: Never Alcohol Use Standard Drinks/Week Comments Not Currently 0 (1 standard drink = 0.6 oz pur e alcohol) [facility] Utilities Answer Date Recorded In the past 12 months has [employer], [employer], oil, or water [employer] threatened to shut off services in your [...] care, and heating? Not very hard 03/05/2025 [facility] of Occupat ional Health - Occupational Stress [...] GED or equivalent Yes 03/05/2025 Preferred Language Pashto 03/05/2025 PHQ-2 Answer Date Recorded Patient Health Questionnaire-2 Score 0 03/05/2025 Sex and Gender Information Value Date Recorded Sex Assigned at Not on file Legal Sex Male 11:16 AM EDT Gender Identity Not on file Sexual Orientation Not on file documented as of this encounter Miscellaneous Notes * Telephone Encounter - Susie Causey MA - 03/30/2025 1:58 PM EDT I spoke with pt. He is currently at [facility] in [place] (In-patient). I gave him the information with Dr. Richards and he will discuss with his providers at rehab. He verbalized understanding. -EDWIN Foster * Telephone Encounter - Patti Davila RegSched Rep - 03/30/2025 11:40 AM EDT Hub staff attempted to follow warm transfer process and was unsuccessful Caller: Mack Bower Relationship: Self Best call back number: [phone] Which medication are you concerned about: sulfaSALAzine Who prescribed you this medication: ADB When did you start taking this medication: 01/16/25 What are your concerns: PATIENT WAS HOSPITALIZED AND IS NOW IN REHAB. PATIENT REPORTS THIS MEDICATION IS NOT HELPING AND THAT HE'S LAYING IN BED AND CAN'T MOVE OR WALK. PATIENT REPORTS THAT METHOTREXATE WAS HELPING HIM. PATIENT SAID A PHYSICAL THERAPIST AT THE REHAB THINKS HE IS IN AN ARTHRITIS FLARE. How long have you had these concerns: 1 MONTH documented in this encounter Plan of Treatment Upcoming Encounters Date Type Department Care Team (Late st Contact Info) Description 05/22/2025 11:00 AM EST Appointment [facility] RHEUMATOLOGY DEXA [address] [phone] 05/22/2025 11:30 AM EST Office Visit [facility] RHEUMATOLOGY [address] [phone] Chris Aponte, LEONEL [address] [phone] documented as of this encounter Visit Diagnoses Not on filedocumented in this encounter Care Teams Professional Employer Consultant Relationship Specialty Start Date End Date Shahid Guthrie MD 1210 [facility] [address] [facility] [address] [place] [address] PCP - General Internal Medicine 12/24/23 documented as of this encounter
--- OUTSIDE RECORDS SUMMARY | 2025-04-28 14:02 | XMS_ITS | Encounter Summary ---
[facility] Address [address] [place] [address] Care Team Providers Care Professor Of Forest Planning Name Role Phone Shahid Guthrie MD Primary Care Provider [phone] Encounter Details Date Type Department Care Team (Late st Contact Info) Description 03/26/2025 Telephone [facility] RHEUMATOLOGY [address] [phone] Ok Richards MD 330 [place] [phone] Social History Tobacco Use Types Packs/Day Years Used Date Smoking Tobacco: Former Cigarettes Smokeless Tobacco: Never Alcohol Use Standard Drinks/Week Comments Not Currently 0 (1 standard drink = 0.6 oz pur e alcohol) [facility] Utilities Answer Date Recorded In the past 12 months has [employer], gas, oil, or water [employer] threatened to shut off services in your [...] care, and heating? Not very hard 03/05/2025 [facility] [place] of Occupat ional Health - Occupational Stress [...] GED or equivalent Yes 03/05/2025 Preferred Language Cymraes 03/05/2025 PHQ-2 Answer Date Recorded Patient Health Questionnaire-2 Score 0 03/05/2025 Sex and Gender Information Value Date Recorded Sex Assigned at Not on file Legal Sex Male 11:16 AM EDT Gender Identity Not on file Sexual Orientation Not on file documented as of this encounter Miscellaneous Notes * Telephone Encounter - Cata Laughlin RN - 03/26/2025 12:10 PM EDT RAND Torre from [employer] called and inquired about pt.'s labs, how often they are drawn and RX Dr. Richards has him on. She requested a standing order and ADB's last chart note. Faxed to [phone]. documented in this encounter Plan of Treatment Upcoming Encounters Date Type Department Care Team (Late st Contact Info) Description 05/22/2025 11:00 AM EST Appointment [facility] RHEUMATOLOGY DEXA [address] [phone] 05/22/2025 11:30 AM EST Office Visit [facility] RHEUMATOLOGY [address] [phone] Chris Aponte APRN [address] [address] Scheduled Orders Name Type Priority Associated Diagnoses Orde r Schedule CBC & Differential Lab Panel Routine Rheumatoid arthritis involving multiple sites with positive rheumatoid factor High risk medication use Immunosuppression due to drug therapy termite technician (current) use of systemic steroids Other fatigue Every 8 Weeks for 6 Occurrences starting 03/26/2025 until 06/25/2026 Comprehensive Metabolic Panel Lab Routine Rheumatoid arthritis involving multiple sites with positive rheumatoid factor High risk medication use Immunosuppression due to drug therapy termite technician (current) use of systemic steroids Other fatigue Every 8 Weeks for 6 Occurrences starting 03/26/2025 until 06/25/2026 Sedimentation Rate Lab Routine Rheumatoid arthritis involving multiple sites with positive rheumatoid factor High risk medication use Immunosuppression due to drug therapy jail (current) use of systemic steroids Other fatigue Every 8 Weeks for 6 Occurrences starting 03/26/2025 until 06/25/2026 C-reactive Protein Lab Routine Rheumatoid arthritis involving multiple sites with positive rheumatoid factor High risk medication use Immunosuppression due to drug therapy jail (current) use of systemic steroids Other fatigue Every 8 Weeks for 6 Occurrences starting 03/26/2025 until 06/25/2026 documented as of this encounter Visit Diagnoses Diagnosis Rheumatoid arthritis involving multiple sites with positive rheumatoid factor- Primary High risk medication use Immunosuppression due to drug therapy termite technician (current) use of systemic steroids Other fatigue documented in this encounter Care Teams Professor Of Forest Planning Relationship Specialty Start Date End Date Shahid Guthrie MD 1210 [facility] [address] [facility] [address] [place] [address] PCP - General Internal Medicine 12/24/23 documented as of this encounter
--- OUTSIDE RECORDS SUMMARY | 2025-04-28 14:02 | XMS_ITS | Encounter Summary ---
Author Organization [facility] Address [address] [place] [address] Care Team Providers Care Performing Arts Road Manager Name Role Phone Shahid Guthrie MD Primary Care Provider [phone] Encounter Details Date Type Department Care Team (Late st Contact Info) Description 03/15/2025 Results Follow-Up [facility] RHEUMATOLOGY [address] [phone] Ok Richards MD 330 [place] [phone] Social History Tobacco Use Types Packs/Day Years Used Date Smoking Tobacco: Former Cigarettes Smokeless Tobacco: Never Alcohol Use Standard Drinks/Week Comments Not Currently 0 (1 standard drink = 0.6 oz pur e alcohol) [facility] Utilities Answer Date Recorded In the past 12 months has [employer], gas, oil, or water [employer] threatened to shut off services in your [...] care, and heating? Not very hard 03/05/2025 [facility] [place] of Occupat ional Health - Occupational Stress [...] GED or equivalent Yes 03/05/2025 Preferred Language Telugu 03/05/2025 PHQ-2 Answer Date Recorded Patient Health Questionnaire-2 Score 0 03/05/2025 Sex and Gender Information Value Date Recorded Sex Assigned at Not on file Legal Sex Male 11:16 AM EDT Gender Identity Not on file Sexual Orientation Not on file documented as of this encounter Miscellaneous Notes * Telephone Encounter - Ok Richards MD - 03/15/2025 1:23 PM EDT Labs reviewed and show normal liver and kidney function. Inflammatory markers ESR/CRP are actually elevated. I think I accidentally said they were normal on the prior message. Thanks documented in this encounter Plan of Treatment Upcoming Encounters Date Type Department Care Team (Late st Contact Info) Description 05/22/2025 11:00 AM EST Appointment [facility] RHEUMATOLOGY DEXA [address] [phone] 05/22/2025 11:30 AM EST Office Visit [facility] RHEUMATOLOGY [address] [phone] Chris Aponte, GREY PERCHER [address] [address] documented as of this encounter Visit Diagnoses Not on filedocumented in this encounter Care Teams Performing Arts Road Manager Relationship Specialty Start Date End Date Shahid Guthrie MD 1210 [facility] [address] [place] [address] PCP - General Internal Medicine 12/24/23 documented as of this encounter
--- OUTSIDE RECORDS SUMMARY | 2025-04-28 14:02 | XMS_ITS | Clinical Summary ---
Author Organization [facility] Address [address] [place] [address] Care Team Providers Care Parachute Manufacturing Supervisor Name Role Phone Unavailable Primary Care Provider [...] (2 of 2 - PCV) 05/06/2021 05/06/2020 [id number] Vaccine ( - 2024- season) 2025 04/20/2022, 10/29/2021, 03/26/2021, Additional history exists UKY-Influenza [...] age to complete this [place] [address] ON LICENSE OF [facility]
--- OUTSIDE RECORDS SUMMARY | 2025-04-28 14:02 | XMS_ITS | Clinical Summary ---
Author Organization [facility] Address [address] [place] [address] Care Team Providers Care Plate Keeper Name Role Phone Shahid Guthrie MD Primary Care Provider [phone] Allergies No known active allergies Medications apixaban (ELIQUIS) 5 MG tablet tablet Take [...] after meals 120 tablet 3 5 Active naproxen sodium (ALEVE) 220 MG tablet Take 1 tablet by mouth 2 (Two) Times a Day As Needed for Mild Pain. Active Empagliflozin-L inaglip-Metform 25-5-1000 MG tablet sustained-relea se 24 hour Take 1 tablet by mouth Daily. Active aspirin 81 MG chewable tablet Chew 1 tablet Daily. 90 tablet 5 Active atorvastatin (LIPITOR) 80 MG tablet Take 1 tablet by mouth Every Night. 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 Little hx of melanoma removed from [...] medical therapy. Recent labs reviewed 12/20/2023 from [facility] and are stable. Plan will be to continue current medication, frequent intensive lab monitoring every 8-12 weeks (CBC, CMP) for toxicity monitoring. Standing lab order provided Slight aching and triggering of the left second finger. Recommend topical diclofenac gel follow up in 4 months Resolved Problems Problem Noted Date Diagnosed Date Resolved Date Stroke-like symptoms 03/03/2025 025 C. difficile diarrhea 03/03/20252024 Encounters Date Type Department Care Team Description 03/30/2025 Telephone [facility] [address] [place] [phone] Ok Richards MD Advice Only 03/26/2025 Telephone [facility] [address] [place] [phone] Ok Richards MD 03/15/2025 Results Follow-Up [facility] [address] [place] [phone] Ok Richards MD 03/03/2025 3:18 PM EDT - 03/08/2025 3:23 PM EDT Hospital Encounter [facility] [address] [place] [address] Naun Moreira MD Pianti, Richard M, DO Sloan, Walker E, MD Burgess, Eva, MD Rheumatoid arthritis, involving unspecified site, unspecified whether rheumatoid factor present (Primary Dx) Discharge Disposition: Intermediate Facility (DC - External) 03/03/2025 Travel from Last 3 Months Immunizations Immunization Administration [...] drink = 0.6 oz pur e alcohol) [facility] Utilities Answer Date Recorded In the past 12 months has [employer] electric, gas, oil, or water company threatened to shut off services in your [...] care, and heating? Not very hard 03/05/2025 [facility]at ional [facility] - Occupational Stress [...] GED or equivalent Yes 03/05/2025 Preferred Language Mauritanian 03/05/2025 PHQ-2 Answer Date Recorded Patient Health [...] - - Weight 111 kg (245 lb) 03/05/2025 12:03 PM EDT Height 177.8 cm (5' 10 ) 03/05/2025 12:03 PM EDT Body Mass Index 35.15 03/05/2025 12:03 PM EDT Plan of Treatment Upcoming Encounters Date Type Department Care Team (Late st Contact Info) Description 05/22/2025 11:00 AM EST Appointment [facility] DEXA [address] [phone] 05/22/2025 11:30 AM EST Office Visit [facility] [address] [phone] Chris Aponte APRN [address] [phone] Health Maintenance Due Date Last Done Comments DIABETIC EYE EXAM 1952 DIABETIC FOOT EXAM 1950 URINE MICROALBUMIN-CREATININ E RATIO (uACR) 1950 RSV Vaccine - Adults (1 - 1- dose 75+ series) 2017 Pneumococcal Vaccine 50+ (2 of 2 - PCV) 05/06/2021 05/06/2020 ANNUAL WELLNESS VISIT 12/15/2023 INFLUENZA VACCINE 02/16/2025 04/06/2024, , 04/21/2021, Additional history exists COVID-19 Vaccine (8 - Pfizer risk season) 2025 04/06/2024, 06/15/2023, 04/20/2022, Additional history exists HEMOGLOBIN A1C 09/04/2025 03/04/2025 TDAP/TD VACCINES (2 - Td or Tdap) 11/19/2034 025 ZOSTER VACCINE Completed 09/03/2022, 05/28/2022 Procedures Procedure Name Priority Date/Time Associated Diagnosis Comments SCANNED - LABS 03/14/2025 EMG 80570 (X1) & NCS 7-8 (28752) Routine 03/07/2025 9:15 AM EDT CBC AND DIFFERENTIAL Routine 03/07/2025 8:02 AM EDT CBC WITH AUTO DIFFERENTIAL Routine 03/07/2025 8:02 AM EDT BASIC METABOLIC PANEL Routine 03/07/2025 8:02 AM EDT BASIC METABOLIC PANEL Routine 03/06/2025 9:53 AM EDT CBC AND DIFFERENTIAL Routine 03/06/2025 8:38 AM EDT CBC WITH AUTO DIFFERENTIAL Routine 03/06/2025 8:38 AM EDT MRI THORACIC SPINE W WO CONTRAST Routine 03/05/2025 10:54 PM EDT MRI CERVICAL SPINE WO CONTRAST STAT 03/05/2025 10:26 PM EDT CK Routine 03/05/2025 7:04 PM EDT FOLATE Routine 03/05/2025 2:59 PM EDT VITAMIN B12 Routine 03/05/2025 2:59 PM EDT SEDIMENTATION RATE Add-On 03/05/2025 8: 11 AM EDT C-REACTIVE PROTEIN Add-On 03/05/2025 8: 11 AM EDT BASIC METABOLIC PANEL Urgent 03/05/2025 8:11 AM EDT CBC (NO DIFF) Urgent 03/05/2025 8:11 AM EDT POCT GLUCOSE FINGERSTICK Routine 03/04/2025 11:32 AM EDT DUPLEX CAROTID BILATERAL CAR - PERFORMED PROCEDURE Routine 03/04/2025 10:05 AM EDT PHOSPHORUS Urgent 03/04/2025 8:42 AM EDT MAGNESIUM Urgent 03/04/2025 8:42 AM EDT COMPREHENSIVE METABOLIC PANEL Urgent 03/04/2025 8:42 AM EDT CBC WITH AUTO DIFFERENTIAL Urgent 03/04/2025 8:42 AM EDT LIPID PANEL Urgent 03/04/2025 8:42 AM EDT HEMOGLOBIN A1C Urgent 03/04/2025 8:42 AM EDT POCT GLUCOSE FINGERSTICK Routine 03/04/2025 5:52 AM EDT POCT GLUCOSE FINGERSTICK Routine 03/04/2025 12:31 AM EDT MAGNESIUM Urgent 03/03/2025 10:22 PM EDT POTASSIUM Urgent 03/03/2025 10:22 PM EDT ECG 12-LEAD [...] FILMS Routine 03/02/2025 12:0 0 AM EDT from Last 3 Months Results * LABS SCANNED (03/14/2025) Ok Richards MD LAB BLOOD ORDERABLES Final Result * EMG 17098 (X1) & NCS 7-8 (73660) (03/07/2025 9:15 AM EDT) Impressions NEUROLOGY - 03/07/2025 10:37 AM EDT Sensorimotor neuropathy, axonal, mild-moderate No electrophysiologic evidence for radiculopathy or plexopathy is seen in the right leg Note-this study is performed relatively early on Following onset of weakness. Should neurological symptoms persist or worsen, a repeat study in the future may be of value This report is transcribed using the SeeControl dictation system. Narrative NEUROLOGY - 03/07/2025 10:37 [...] Amp Site1 Site2 Delta-0 (ms) Dist (cm) César (m/s) Norm César (m/s) Right Fibular [...] interrogated due to difficulty with patient repositioning october Moises RACKET STRINGER NEUROLOGY ORDERABLES Final R esult NEUROLOGY * (ABNORMAL) CBC Auto Differential (03/07/2025 8:02 AM EDT) Only the most recent of3 resultswithin the time period is included. WBC 10.85(H) 3.40 - 10.80 10*3/mm3 03/07/2025 8:35 AM EDT [facility] RBC 3.92(L) 4.14 - 5.80 10*6/mm3 03/07/2025 8:35 AM EDT [facility] Hemoglobin 11.9(L) 13.0 - 17.7 g/dL 03/07/2025 8:35 AM EDT [facility] Hematocrit 36.7(L) 37.5 - 51.0 % 03/07/2025 8:35 AM EDT [facility] MCV 93.6 79.0 - 97.0 fL 03/07/2025 8:35 AM EDT [facility] MCH 30.4 26.6 - 33.0 pg 03/07/2025 8:35 AM EDT [facility] MCHC 32.4 31.5 - 35.7 g/dL 03/07/2025 8:35 AM EDT [facility] RDW 15.0 12.3 - 15.4 % 03/07/2025 8:35 AM EDT [facility] RDW-SD 51.3 37.0 - 54.0 fl 03/07/2025 8:35 AM EDT [facility] MPV 9.7 6.0 - 12.0 fL 03/07/2025 8:35 AM EDT [facility] Platelets 340 140 - 450 10*3/mm3 03/07/2025 8:35 AM EDT [facility] Neutrophil % 75.8 42.7 - 76.0 % 03/07/2025 8:35 AM EDT [facility] Lymphocyte % 8.6(L) 19.6 - 45.3 % 03/07/2025 8:35 AM EDT [facility] Monocyte % 10.5 5.0 - 12.0 % 03/07/2025 8:35 AM EDT [facility] Eosinophil % 4.0 0.3 - 6.2 % 03/07/2025 8:35 AM EDT [facility] Basophil % 0.5 0.0 - 1.5 % 03/07/2025 8:35 AM EDT [facility] Immature Grans % 0.6(H) 0.0 - 0.5 % 03/07/2025 8:35 AM EDT [facility] Neutrophils, Absolute 8.24(H) 1.70 - 7.00 10*3/mm3 03/07/2025 8:35 AM EDT [facility] Lymphocytes, Absolute 0.93 0.70 - 3.10 10*3/mm3 03/07/2025 8:35 AM EDT [facility] Monocytes, Absolute 1.14(H) 0.10 - 0.90 10*3/mm3 03/07/2025 8:35 AM EDT [facility] Eosinophils, Absolute 0.43(H) 0.00 - 0.40 10*3/mm3 03/07/2025 8:35 AM EDT [facility] Basophils, Absolute 0.05 0.00 - 0.20 10*3/mm3 03/07/2025 8:35 AM EDT [facility] Immature Grans, Absolute 0.06(H) 0.00 - 0.05 10*3/mm3 03/07/2025 8:35 AM EDT [facility] nRBC 0.0 0.0 - 0.2 /100 WBC 03/07/2025 8:35 AM T [facility] Blood Venipuncture / Unknown 03/07/2025 8:02 AM EDT 03/07/2025 8:24 AM EDT us Allison Zaragoza MD LAB BLOOD ORDERABLES Final Resul t [facility]
[address] [place] [address], * (ABNORMAL) Basic Metabolic Panel (03/07/2025 8:02 AM EDT) Only the most recent of3 resultswithin the time period is included. Glucose 135(H) 65 - 99 mg/dL 03/07/2025 8:57 AM EDT [facility] BUN 12.6 8.0 - 23.0 mg/dL 03/07/2025 8:57 AM EDT [facility] Creatinine 0.56(L) 0.76 - 1.27 mg/dL 03/07/2025 8:57 AM EDT [facility] Sodium 135(L) 136 - 145 mmol/L 03/07/2025 8:57 AM EDT [facility] Potassium 4.2 3.5 - 5.2 mmol/L 03/07/2025 8:57 AM EDT [facility] Chloride 98 98 - 107 mmol/L 03/07/2025 8:57 AM EDT [facility] CO2 27.0 22.0 - 29.0 mmol/L 03/07/2025 8:57 AM EDT [facility] Calcium 8.3(L) 8.6 - 10.5 mg/dL 03/07/2025 8:57 AM EDT [facility] BUN/Creatinine Ratio 22.5 7.0 - 25.0 03/07/2025 8:57 AM EDT [facility] Anion Gap 10.0 5.0 - 15.0 mmol/L 03/07/2025 8:57 AM EDT [facility] eGFR 98.4 >60.0 mL/min/1.7 3 03/07/2025 8:57 AM T [facility] Blood Venipuncture / Unknown 03/07/2025 8:02 AM EDT 03/07/2025 8:23 AM EDT Narrative [facility] - 03/07/2025 8:57 AM EDT [...] MD LAB BLOOD ORDERABLES Final Resul t [facility]
[address] [place] [address], * MRI Thoracic Spine With & Without Contrast (03/05/2025 10:54 PM EDT) Anatomical Region Laterality Modality Spine, T-spine N/A Magnetic Resonan ce 03/06/2025 8:31 AM EDT Impressions 03/06/2025 8:45 AM EDT Impression: No acute abnormality of the thoracic spine. No significant spinal canal or neuroforaminal stenosis. Electronically Signed: Gary Shaw MD 03/06/2025 8:45 AM EDT Workstation ID: [id number] Narrative 03/06/2025 8:45 AM EDT MRI THORACIC [...] round, microlobulated T1/T2/STIR hyperintense lesion of the E1ncnqrjygk body compatible with hemangioma. Otherwise unremarkable bonemarrow signal intensity. No evidence of fracture or loss of vertebral bodyheight. No bony edema. There is normal spinal alignment. The intervertebral disc spaces appear grossly preserved withoutsignificant loss of intervertebral disc height or advanced degenerativedisc disease. There is small right-sided ligamentum flavum hypertrophy [id number] (series 10 image 10). No conspicuous disc [...] MD 03/06/2025 8:45 AM EDT Workstation ID: [id number] us Allison Zaragoza MD IMG MRI ORDERABLES Final Result * MRI Cervical [...] MD 03/05/2025 10:51 PM EDT Workstation ID: [id number] Narrative 03/05/2025 10:51 PM EDT MRI CERVICAL [...] MD 03/05/2025 10:51 PM EDT Workstation ID: [id number] us October K Moises VALENCIAN IMG MRI ORDERABLES Final Res ult * CK (03/05/2025 7:04 PM EDT) Creatine Kinase 101 20 - 200 U/L 03/05/2025 8:15 PM EDT [facility] Blood Venipuncture / Unknown 03/05/2025 7:04 PM EDT 03/05/2025 7:49 PM EDT October De Leon [facility] LAB BLOOD ORDERABLES Final R esult [facility]
[address] [place] [address], * Folate (03/05/2025 2:59 PM EDT) Folate 9.87 4.78 - 24.20 ng/mL 03/05/2025 7:42 PM EDT [facility] Blood Venipuncture / Unknown 03/05/2025 2:59 PM EDT 03/05/2025 3:18 PM EDT Narrative [facility] - 03/05/2025 7:42 PM EDT Results may be falsely increased if patient taking Biotin. October Moises [facility] LAB BLOOD ORDERABLES Final R esult Performing Organization Address City/[facility]/ZIP Co de Phone Number [facility]
[address] [place] [address], * Vitamin B12 (03/05/2025 2:59 PM EDT) Vitamin B-12 289 211 - 946 pg/mL 03/05/2025 7:42 PM EDT [facility] Blood Venipuncture / Unknown 03/05/2025 2:59 PM EDT 03/05/2025 3:18 PM EDT Narrative [facility] - 03/05/2025 7:42 PM EDT Results may be falsely increased if patient taking Biotin. October Moises [facility] LAB BLOOD ORDERABLES Final R esult [facility]
[address] [place] [address], [place] [phone] * (ABNORMAL) Sedimentation Rate (03/05/2025 8:11 AM EDT) Pathologist [facility] Sed Rate 78(H) 0 - 20 mm/hr 03/05/2025 2:51 PM EDT [facility] Blood Venipuncture / Unknown 03/05/2025 8:11 AM EDT 03/05/2025 8:25 AM EDT october Moises RACKET STRINGER LAB BLOOD ORDERABLES Final R esult [facility]
[address] [place] [address], * (ABNORMAL) CBC (No Diff) (03/05/2025 8:11 AM EDT) [facility] WBC 10.64 3.40 - 10.80 10*3/mm3 03/05/2025 8:34 AM EDT [facility] RBC 3.92(L) 4.14 - 5.80 10*6/mm3 03/05/2025 8:34 AM EDT [facility] Hemoglobin 12.2(L) 13.0 - 17.7 g/dL 03/05/2025 8:34 AM EDT [facility] Hematocrit 37.1(L) 37.5 - 51.0 % 03/05/2025 8:34 AM EDT [facility] MCV 94.6 79.0 - 97.0 fL 03/05/2025 8:34 AM EDT [facility] MCH 31.1 26.6 - 33.0 pg 03/05/2025 8:34 AM EDT [facility] MCHC 32.9 31.5 - 35.7 g/dL 03/05/2025 8:34 AM EDT [facility] RDW 15.3 12.3 - 15.4 % 03/05/2025 8:34 AM EDT [facility] RDW-SD 53.0 37.0 - 54.0 fl 03/05/2025 8:34 AM EDT [facility] MPV 10.0 6.0 - 12.0 fL 03/05/2025 8:34 AM EDT [facility] Platelets 309 140 - 450 10*3/mm3 03/05/2025 8:34 AM EDT [facility] Blood Venipuncture / Unknown 03/05/2025 8:11 AM EDT 03/05/2025 8:25 AM EDT Willy Santoyo MD LAB BLOOD ORDERABLES Final Res ult [facility]
[address] [place] [address], * (ABNORMAL) C-reactive Protein (03/05/2025 8:11 AM EDT) C-Reactive Protein 9.14(H) 0.00 - 0.50 mg/dL 03/05/2025 3:42 PM EDT [facility] Blood Venipuncture / Unknown 03/05/2025 8:11 AM EDT 03/05/2025 8:25 AM EDT us Angelina K Moises CASTANEDA LAB BLOOD ORDERABLES Final R esult [facility]
[address] [place] [address], [place] [phone] * POC Glucose Once (03/04/2025 11:32 AM EDT) Only the most recent of4 resultswithin the time period is included. Glucose 130 70 - 130 mg/dL 03/04/2025 11:35 AM EDT [facility] Blood 03/04/2025 11:3 2 AM EDT 03/04/2025 11:35 AM EDT Willy Santoyo MD POINT OF CARE TEST ORDERABLES Final Result [facility]
[address] [place] [id number], * DUPLEX CAROTID BILATERAL CAR - PERFORMED [...] motion. No prior for comparison. Mer Dove RACKET STRINGER CV VASCULAR ORDERABLES Fi nal Result * (ABNORMAL) Phosphorus (03/04/2025 8:42 AM EDT) Phosphorus 2.3(L) 2.5 - 4.5 mg/dL 03/04/2025 9:30 AM EDT [facility] Blood Venipuncture / Unknown 03/04/2025 8:42 AM EDT 03/04/2025 8:53 AM EDT Mack Prince DO LAB BLOOD ORDERABLES Final R esult [facility]
[address] [place] [id number], [place] [phone] * Magnesium (03/04/2025 8:42 AM EDT) Only the most recent of2 resultswithin the time period is included. Magnesium 2.2 1.6 - 2.4 mg/dL 03/04/2025 9:30 AM EDT [facility] Blood Venipuncture / Unknown 03/04/2025 8:42 AM EDT 03/04/2025 8:53 AM EDT Mack Prince DO LAB BLOOD ORDERABLES Final R esult Performing Organization Address [facility] Co de Phone Number [facility]
[address] [place] [address], * (ABNORMAL) Hemoglobin A1c (03/04/2025 8:42 AM EDT) Pathologist [facility] Hemoglobin A1C 6.62(H) 4.80 - 5.60 % 03/04/2025 9:32 AM EDT [facility] Blood Venipuncture / Unknown 03/04/2025 8:42 AM EDT 03/04/2025 8:53 AM EDT Narrative [facility] - 03/04/2025 9:32 AM EDT Hemoglobin A1C Ranges: Increased Risk for Diabetes 5.7% to 6.4% Diabetes >= 6.5% Diabetic Goal < 7.0% Mer Dove APRN LAB BLOOD ORDERABLES Sarah l Result Performing Organization Address City/[facility]/ZIP Co de Phone Number [facility]
[address] [place] [address], * (ABNORMAL) Lipid Panel (03/04/2025 8:42 AM EDT) Pathologist [facility] Total Cholesterol 142 0 - 200 mg/dL 03/04/2025 9:30 AM EDT [facility] Triglycerides 103 0 - 150 mg/dL 03/04/2025 9:30 AM EDT [facility] HDL Cholesterol 34(L) 40 - 60 mg/dL 03/04/2025 9:30 AM EDT [facility] LDL Cholesterol 89 0 - 100 mg/dL 03/04/2025 9:30 AM EDT [facility] VLDL Cholesterol 19 5 - 40 mg/dL 03/04/2025 9:30 AM EDT [facility] LDL/HDL Ratio 2.57 03/04/2025 9:30 AM EDT [facility] Blood Venipuncture / Unknown 03/04/2025 8:42 AM EDT 03/04/2025 8:53 AM EDT Narrative [facility] - 03/04/2025 9:30 AM EDT [...] is calculated using the NIH LDL-C calculation. us Mer Dove APRN LAB BLOOD ORDERABLES Sarah antunez Result [facility]
[address] [place] [address], * (ABNORMAL) Comprehensive Metabolic Panel (03/04/2025 8:42 AM EDT) Glucose 130(H) 65 - 99 mg/dL 03/04/2025 9:30 AM [facility] BUN 16.7 8.0 - 23.0 mg/dL 03/04/2025 9:30 AM [facility] Creatinine 0.77 0.76 - 1.27 mg/dL 03/04/2025 9:30 AM [facility] Sodium 137 136 - 145 mmol/L 03/04/2025 9:30 AM [facility] Potassium 3.7 3.5 - 5.2 mmol/L 03/04/2025 9:30 AM [facility] Chloride 101 98 - 107 mmol/L 03/04/2025 9:30 AM [facility] CO2 25.0 22.0 - 29.0 mmol/L 03/04/2025 9:30 AM [facility] Calcium 8.1(L) 8.6 - 10.5 mg/dL 03/04/2025 9:30 AM [facility] Total Protein 6.8 6.0 - 8.5 g/dL 03/04/2025 9:30 AM [facility] Albumin 3.5 3.5 - 5.2 g/dL 03/04/2025 9:30 AM [facility] ALT (SGPT) 10 1 - 41 U/L 03/04/2025 9:30 AM [facility] AST (SGOT) 13 1 - 40 U/L 03/04/2025 9:30 AM [facility] Alkaline Phosphatase 62 39 - 117 U/L 03/04/2025 9:30 AM [facility] Total Bilirubin 0.3 0.0 - 1.2 mg/dL 03/04/2025 9:30 AM [facility] Globulin 3.3 gm/dL 03/04/2025 9:30 AM [facility] Comment:Calculated Result A/G Ratio 1.1 g/dL 03/04/2025 9:30 AM [facility] BUN/Creatinine Ratio 21.7 7.0 - 25.0 03/04/2025 9:30 AM EDT [facility] Anion Gap 11.0 5.0 - 15.0 mmol/L 03/04/2025 9:30 AM EDT [facility] eGFR 89.4 >60.0 mL/min/1.7 3 03/04/2025 9:30 AM EDT [facility] Blood Venipuncture / Unknown 03/04/2025 8:42 AM EDT 03/04/2025 8:53 AM EDT Narrative [facility] - 03/04/2025 9:30 AM EDT GFR [...] ORDERABLES Final R esult Performing Organization Address City/[facility]/ZIP Co de Phone Number [facility]
[address] [place] [address], * Potassium (03/03/2025 10:22 PM EDT) Potassium 3.8 3.5 - 5.2 mmol/L 03/03/2025 11:12 PM EDT [facility] Blood Venipuncture / Unknown 03/03/2025 10:22 PM EDT 03/03/2025 10:42 PM EDT us Mack Prince DO LAB BLOOD ORDERABLES Final R esult [facility]
[address] [place] [address], * ECG 12 Lead Stroke Evaluation (03/03/2025 9:10 PM EDT) QT Interval 414 ms ECG QTC Interval 471 ms ECG 03/03/2025 [...] Confirmed By: Scotty Perez us Mer Dove RACKET STRINGER ECG ORDERABLES Final Res ult ECG * MRI Lumbar Spine Without Contrast [...] MD 03/04/2025 5:55 AM EDT Workstation ID: [id number] Lenore 03/04/2025 5:55 AM EDT MRI LUMBAR SPINE [...] MD 03/04/2025 5:55 AM EDT Workstation ID: [id number] Mer Dove APRN IM MRI ORDERABLES Final Result * MRI Brain [...] MD 03/03/2025 9:09 PM EDT Workstation ID: [id number] Narrative 03/03/2025 9:09 PM EDT MRI BRAIN [...] MD 03/03/2025 9:09 PM EDT Workstation ID: [id number] Mer Dove R[employer]ET [employer]ING[employer] [facility] Final Result * XR Outside Chest (03/02/2025 12:15 AM [...] CT Outside Films (03/02/2025 12:05 AM EDT) Only the most recent of2 resultswithin the time period is included. Narrative SYSTEMGENERATED, DOCUMENTATION - 03/03/2025 6:01 PM EDT This procedure was auto-finalized with no dictation required. eMr Dove RACKET STRINGER IMG CT ORDERABLES Final R esult from Last 3 Months Insurance [facility] A & B Advance Directives * CPR (Attempt to Resuscitate) (Latest Code Status on File) Date Activated Date Inactivated Comments 03/03/2025 3:53 PM 03/08/2025 5:23 PM Question Answer Comments Code Status (Patient has no pulse and is not breathing): CPR (Attempt to Resuscitate) Medical Interventions (Patie nt has pulse or is breathing): Full Support Level Of Support Discussed With: Patient Care Teams Plate Keeper Relationship Specialty Start Date End Date Shahid Guthrie MD [address] [place] [phone] PCP - General Internal Medicine 12/24/23
--- OUTSIDE RECORDS SUMMARY | 2025-04-28 14:03 | XMS_ITS | Encounter Summary ---
[facility] Address [address] [place] [address] Care Team Providers Care Sewing Machine Assembler Name Role Phone Shahid Guthrie MD Primary Care Provider [phone] Encounter Details Date Type Department Care Team [...] more drinks on one occasion? Never 03/03/2025 Abuse Screen Answer Date Recorded Feels Unsafe at Home or Work/School no 03/03/2025 Feels Threatened by Someone no 02/16 Does Anyone Try to Keep You From Having Contact with Others or Doing Things Outside Your Home? no 03/03/2025 Physical Signs of Abuse Present no 03/03/2025 Housing Stability Answer Date Recorded Current Living Arrangements home 02/16 Potentially Unsafe Housing Conditions Not on lula e 03/04/2025 Disabilities Answer Date Recorded Difficulty Concentrating, Remembering [...] 3:57 PM EDT Britt Oscar RN * Meagher Suicide Severity Rating Scale (Screener/Recent Self-Report) Question Answer Date of Assessment Author 6. Suicidal Behavior (Lifetime) No 03/03/2025 3:57 PM EDT Pearl Hernandez RN documented as of this encounter Plan of Treatment Upcoming Encounters Date Type Department Care Team (Late st Contact Info) Description 05/22/2025 11:00 AM EST Appointment [facility] DEXA [address] [phone] 05/22/2025 11:30 AM EST Office Visit [facility] [address] [phone] Chris Aponte APRN [address] [address] documented as of this encounter Visit Diagnoses Not on filedocumented in this encounter Care Teams Sewing Machine Assembler Relationship Specialty Start Date End Date Shahid Guthrie MD [address] [facility] [address] [place] [address] PCP - General Internal Medicine 12/24/23 documented as of this encounter
[2025-04-28 14:09] LABS: Microscopic, Urine URINE MICROSCOPIC (MICROSCOPIC)
[2025-04-28 14:16] LABS: Bilirubin,Urine Negative (Negative); Color,Urine RED (Yellow); Glucose,Urine (UA) 3+ (Negative); Ketones,Urine TRACE (Negative); Leukocyte Esterase,Urine TRACE (Negative); PH,Urine 6.5 (5.0-8.5); Protein,Urine 3+ (Negative); Specific Gravity, Urine 1.020 (1.005-1.030); Urobilinogen,Urine 2.0 EU/dl (0.2)
[2025-04-28 14:35] LABS: Bacteria,Urine 1+ /lpf; RBC,Urine TNTC #/hpf (0-3); Squamous Epithelial Cell,Urine Occasional #/hpf (0-5)
== END 2025-04-28 23:59 | disposition home or self-care (01) ==
LOC: LAB.DROPOF 14:00
PROVIDERS: PCP Family Medicine Hospice and Palliative Medicine; Visit Provider Family Medicine Hospice and Palliative Medicine
DX: R31.0 Gross hematuria (principal)
CPT/HCPCS: 81001; 87086; 87088

== ENCOUNTER 2025-05-09 18:23 | Inpatient (IN) | payer OTHER, MEDICARE, BC, SELFPAY ==
[2025-05-09] VITALS (7 sets, daily range): BP systolic 164–213; BP diastolic 74–120; PULSE 74–87; RESP 14–18; TEMP 36.3–37.1; O2SAT 96–99; BMI 32.1; BMI 29.9
--- OUTSIDE RECORDS SUMMARY | 2025-05-09 18:31 | XMS_ITS | Encounter Summary ---
Author Organization [facility] Address [address] [place] [address] Care Team Providers Care [employer] Principal Name Role Phone Shahid Guthrie MD Primary Care Provider [phone] Encounter Details Date Type Department Care Team (Late st Contact Info) Description 03/26/2025 Telephone [facility] RHEUM[facility]OLOG[facility] [address] [phone] Ok Richards MD [address] [phone] Social History Tobacco Use Types Packs/Day Years Used Date Smoking Tobacco: Former Cigarettes Smokeless Tobacco: Never Alcohol Use Standard Drinks/Week Comments Not Currently 0 (1 standard drink = 0.6 oz pur e alcohol) [facility] Utilities Answer Date Recorded In the past 12 months has [employer], gas, oil, or water [employer] threatened to shut off services in your [...] care, and heating? Not very hard 03/05/2025 [facility] [place] of Occupat ional Health - Occupational Stress [...] GED or equivalent Yes 03/05/2025 Preferred Language Nauruan 03/05/2025 PHQ-2 Answer Date Recorded Patient Health Questionnaire-2 Score 0 03/05/2025 Sex and Gender Information Value Date Recorded Sex Assigned at Not on file Legal Sex Male 11:16 AM EDT Gender Identity Not on file Sexual Orientation Not on file documented as of this encounter Miscellaneous Notes * Telephone Encounter - Cata Laughlin RN - 03/26/2025 12:10 PM EDT [facility] Torre from [facility] called and inquired about pt.'s labs, how often they are drawn and RX Dr. Richards has him on. She requested a standing order and ADB's last chart note. Faxed to [phone]. documented in this encounter Plan of Treatment Upcoming Encounters Date Type Department Care Team (Late st Contact Info) Description 05/22/2025 11:00 AM EST Appointment [facility] RHEUMATOLOGY DEXA [address] [phone] 05/22/2025 11:30 AM EST Office Visit [facility] RHEUMATOLOGY [address] [phone] Chris Aponte APRN [address] [address] Scheduled Orders Name Type Priority Associated Diagnoses Orde r Schedule CBC & Differential Lab Panel Routine Rheumatoid arthritis involving multiple sites with positive rheumatoid factor High risk medication use Immunosuppression due to drug therapy 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 inspector (current) use of systemic steroids Other fatigue Every 8 Weeks for 6 Occurrences starting 03/26/2025 until 06/25/2026 Comprehensive Metabolic Panel Lab Routine Rheumatoid arthritis involving multiple sites with positive rheumatoid factor High risk medication use Immunosuppression due to drug therapy termite inspector (current) use of systemic steroids Other fatigue Every 8 Weeks for 6 Occurrences starting 03/26/2025 until 06/25/2026 Sedimentation Rate Lab Routine Rheumatoid arthritis involving multiple sites with positive rheumatoid factor High risk medication use Immunosuppression due to drug therapy [facility] (current) use of systemic steroids Other fatigue Every 8 Weeks for 6 Occurrences starting 03/26/2025 until 06/25/2026 C-reactive Protein Lab Routine Rheumatoid arthritis involving multiple sites with positive rheumatoid factor High risk medication use Immunosuppression due to drug therapy [facility] (current) use of systemic steroids Other fatigue Every 8 Weeks for 6 Occurrences starting 03/26/2025 until 06/25/2026 documented as of this encounter Visit Diagnoses Diagnosis Rheumatoid arthritis involving multiple sites with positive rheumatoid factor- Primary High risk medication use Immunosuppression due to drug therapy termite inspector (current) use of systemic steroids Other fatigue documented in this encounter Care Teams [employer] Principal Relationship Specialty Start Date End Date Shahid Guthrie MD [address] [facility] [address] [facility] [address] [place] [address] PCP - General Internal Medicine 12/24/23 documented as of this encounter
--- OUTSIDE RECORDS SUMMARY | 2025-05-09 18:31 | XMS_ITS | Clinical Summary ---
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 Recent labs reviewed 12/20/2023 from [facility] and are stable. Plan will be [...] Type Department Care Team Description 03/30/2025 Telephone [facility] RHEUMATOLOGY [address] [place] [phone] Ok Richards MD Advice Only 03/26/2025 Telephone [facility] RHEUMATOLOGY [address] [place] [phone] Ok Richards MD 03/15/2025 Results Follow-Up [facility] RHEUMATOLOGY [address] [place] [phone] Ok Richards MD 03/03/2025 3:18 PM EDT - 03/08/2025 3:23 PM EDT Hospital Encounter [facility] [address] [place] [address] Naun Moreira MD Pianti, Richard M, DO Sloan, Walker E, MD Burgess, Eva, MD Rheumatoid arthritis, involving unspecified site, unspecified whether rheumatoid factor present (Primary Dx) Discharge Disposition: [facility] (DC - External) 03/03/2025 Travel from [...] drink = 0.6 oz pur e alcohol) [facility] Utilities Answer Date Recorded In the past 12 months has [employer] electric, gas, oil, or water company threatened [...] care, and heating? Not very hard 03/05/2025 [facility] [place] of Occupat ional Health - Occupational Stress [...] GED or equivalent Yes 03/05/2025 Preferred Language Tanzanian 03/05/2025 PHQ-2 Answer Date Recorded Patient Health [...] Info) Description 05/22/2025 11:00 AM EST Appointment [facility] RHEUMATOLOGY DEXA [address] [phone] 05/22/2025 11:30 AM EST Office Visit [facility] RHEUMATOLOGY [address] [phone] Chris Aponte APRN [address] [phone] Health Maintenance Due Date Last Done Comments [...] Diagnosis Comments SCANNED - LABS 03/14/2025 EMG 66887 (X1) & NCS 7-8 (93952) Routine 03/07/2025 9:15 AM EDT CBC AND [...] LAB BLOOD ORDERABLES Final Result * EMG 90565 (X1) & NCS 7-8 (73433) (03/07/2025 9:15 AM EDT) Impressions NEUROLOGY - 03/07/2025 10:37 AM EDT Sensorimotor neuropathy, axonal, mild-moderate No electrophysiologic evidence for radiculopathy or plexopathy is seen in the right leg Note-this study is performed relatively early on Following onset of weakness. Should neurological symptoms persist or worsen, a repeat study in the future may be of value This report is transcribed using the Beeminder dictation system. Narrative NEUROLOGY - 03/07/2025 10:37 [...] to difficulty with patient repositioning october Moises OIL PROSPECTING OBSERVER NEUROLOGY ORDERABLES Final R esult NEUROLOGY * (ABNORMAL) CBC Auto Differential (03/07/2025 8:02 AM EDT) Only the most recent of3 resultswithin the time period is included. WBC 10.85(H) 3.40 - 10.80 10*3/mm3 03/07/2025 8:35 AM EDT [facility] RBC 3.92(L) 4.14 - 5.80 10*6/mm3 03/07/2025 8:35 AM EDT [facility] Hemoglobin 11.9(L) 13.0 - 17.7 g/dL 03/07/2025 8:35 AM EDT [facility] Hematocrit 36.7(L) 37.5 - 51.0 % 03/07/2025 8:35 AM EDT [facility] MCV 93.6 79.0 - 97.0 fL 03/07/2025 8:35 AM EDT [facility] MCH 30.4 26.6 - 33.0 pg 03/07/2025 8:35 AM EDT [facility] MCHC 32.4 31.5 - 35.7 g/dL 03/07/2025 8:35 AM EDT [facility] RDW 15.0 12.3 - 15.4 % 03/07/2025 8:35 AM EDT [facility] RDW-SD 51.3 37.0 - 54.0 fl 03/07/2025 8:35 AM EDT [facility] MPV 9.7 6.0 - 12.0 fL 03/07/2025 8:35 AM EDT [facility] Platelets 340 140 - 450 10*3/mm3 03/07/2025 8:35 AM EDT [facility] Neutrophil % 75.8 42.7 - 76.0 % 03/07/2025 8:35 AM EDT [facility] Lymphocyte % 8.6(L) 19.6 - 45.3 % 03/07/2025 8:35 AM EDT [facility] Monocyte % 10.5 5.0 - 12.0 % 03/07/2025 8:35 AM EDT [facility] Eosinophil % 4.0 0.3 - 6.2 % 03/07/2025 8:35 AM EDT [facility] Basophil % 0.5 0.0 - 1.5 % 03/07/2025 8:35 AM EDT [facility] Immature Grans % 0.6(H) 0.0 - 0.5 % 03/07/2025 8:35 AM EDT [facility] Neutrophils, Absolute 8.24(H) 1.70 - 7.00 10*3/mm3 03/07/2025 8:35 AM EDT [facility] Lymphocytes, Absolute 0.93 0.70 - 3.10 10*3/mm3 03/07/2025 8:35 AM EDT [facility] Monocytes, Absolute 1.14(H) 0.10 - 0.90 10*3/mm3 03/07/2025 8:35 AM EDT [facility] Eosinophils, Absolute 0.43(H) 0.00 - 0.40 10*3/mm3 03/07/2025 8:35 AM EDT [facility] Basophils, Absolute 0.05 0.00 - 0.20 10*3/mm3 03/07/2025 8:35 AM EDT [facility] Immature Grans, Absolute 0.06(H) 0.00 - 0.05 10*3/mm3 03/07/2025 8:35 AM EDT [facility] nRBC 0.0 0.0 - 0.2 /100 WBC 03/07/2025 8:35 AM T [facility] Blood Venipuncture / Unknown 03/07/2025 8:02 AM EDT 03/07/2025 8:24 AM EDT us Allison Zaragoza MD LAB BLOOD ORDERABLES Final Resul t [facility]
[address] [place] [address], * (ABNORMAL) Basic Metabolic Panel (03/07/2025 8:02 AM EDT) Only the most recent of3 resultswithin the time period is included. Glucose 135(H) 65 - 99 mg/dL 03/07/2025 8:57 AM EDT [facility] BUN 12.6 8.0 - 23.0 mg/dL 03/07/2025 8:57 AM EDT [facility] Creatinine 0.56(L) 0.76 - 1.27 mg/dL 03/07/2025 8:57 AM EDT [facility] Sodium 135(L) 136 - 145 mmol/L 03/07/2025 8:57 AM EDT [facility] Potassium 4.2 3.5 - 5.2 mmol/L 03/07/2025 8:57 AM EDT [facility] Chloride 98 98 - 107 mmol/L 03/07/2025 8:57 AM EDT [facility] CO2 27.0 22.0 - 29.0 mmol/L 03/07/2025 8:57 AM EDT [facility] Calcium 8.3(L) 8.6 - 10.5 mg/dL 03/07/2025 8:57 AM EDT [facility] BUN/Creatinine Ratio 22.5 7.0 - 25.0 03/07/2025 8:57 AM EDT [facility] Anion Gap 10.0 5.0 - 15.0 mmol/L 03/07/2025 8:57 AM EDT [facility] eGFR 98.4 >60.0 mL/min/1.7 3 03/07/2025 8:57 AM T [facility] Blood Venipuncture / Unknown 03/07/2025 8:02 AM EDT 03/07/2025 8:23 AM EDT Narrative [facility] - 03/07/2025 8:57 AM EDT GFR [...] MD LAB BLOOD ORDERABLES Final Resul t [facility]
[address] [place] [address], * MRI Thoracic Spine With & Without Contrast (03/05/2025 10:54 PM EDT) Anatomical Region Laterality Modality Spine, T-spine N/A Magnetic Resonan ce 03/06/2025 8:31 AM EDT Impressions 03/06/2025 8:45 AM EDT Impression: No acute abnormality of the thoracic spine. No significant spinal canal or neuroforaminal stenosis. Electronically Signed: Gary Shaw MD 03/06/2025 8:45 AM EDT Workstation ID: [id number] Narrative 03/06/2025 8:45 AM EDT MRI THORACIC [...] round, microlobulated T1/T2/STIR hyperintense lesion of the [id number] body compatible with hemangioma. Otherwise unremarkable bonemarrow signal intensity. No evidence of fracture or loss of vertebral bodyheight. No bony edema. There is normal spinal alignment. The intervertebral disc spaces appear grossly preserved withoutsignificant loss of intervertebral disc height or advanced degenerativedisc disease. There is small right-sided ligamentum flavum hypertrophy [id number] (series 10 image 10). No conspicuous disc [...] MD 03/06/2025 8:45 AM EDT Workstation ID: [id number] us Allison Zaragoza MD IMG MRI ORDERABLES [...] MD 03/05/2025 10:51 PM EDT Workstation ID: [id number] Narrative 03/05/2025 10:51 PM EDT MRI CERVICAL [...] MD 03/05/2025 10:51 PM EDT Workstation ID: [id number] us October K Moises VALENCIAN IMG MRI ORDERABLES Final Res ult * CK (03/05/2025 7:04 PM EDT) Creatine Kinase 101 20 - 200 U/L 03/05/2025 8:15 PM EDT [facility] Blood Venipuncture / Unknown 03/05/2025 7:04 PM EDT 03/05/2025 7:49 PM EDT October De Leon [facility] LAB BLOOD ORDERABLES Final R esult [facility]
[address] [place] [address], * Folate (03/05/2025 2:59 PM EDT) Folate 9.87 4.78 - 24.20 ng/mL 03/05/2025 7:42 PM EDT [facility] Blood Venipuncture / Unknown 03/05/2025 2:59 PM EDT 03/05/2025 3:18 PM EDT Narrative [facility] - 03/05/2025 7:42 PM EDT Results may be falsely increased if patient taking Biotin. October Moises [facility] LAB BLOOD ORDERABLES Final R esult Performing Organization Address City/[facility]/ZIP Co de Phone Number [facility]
[address] [place] [address], * Vitamin B12 (03/05/2025 2:59 PM EDT) Vitamin B-12 289 211 - 946 pg/mL 03/05/2025 7:42 PM EDT [facility] Blood Venipuncture / Unknown 03/05/2025 2:59 PM EDT 03/05/2025 3:18 PM EDT Narrative [facility] - 03/05/2025 7:42 PM EDT Results may be falsely increased if patient taking Biotin. October Moises [facility] LAB BLOOD ORDERABLES Final R esult [facility]
[address] [place] [address], [place] [phone] * (ABNORMAL) Sedimentation Rate (03/05/2025 8:11 AM EDT) Pathologist [facility] Sed Rate 78(H) 0 - 20 mm/hr 03/05/2025 2:51 PM EDT [facility] Blood Venipuncture / Unknown 03/05/2025 8:11 AM EDT 03/05/2025 8:25 AM EDT october Moises OIL PROSPECTING OBSERVER LAB BLOOD ORDERABLES Final R esult [facility]
[address] [place] [address], * (ABNORMAL) CBC (No Diff) (03/05/2025 8:11 AM EDT) [facility] WBC 10.64 3.40 - 10.80 10*3/mm3 03/05/2025 8:34 AM EDT [facility] RBC 3.92(L) 4.14 - 5.80 10*6/mm3 03/05/2025 8:34 AM EDT [facility] Hemoglobin 12.2(L) 13.0 - 17.7 g/dL 03/05/2025 8:34 AM EDT [facility] Hematocrit 37.1(L) 37.5 - 51.0 % 03/05/2025 8:34 AM EDT [facility] MCV 94.6 79.0 - 97.0 fL 03/05/2025 8:34 AM EDT [facility] MCH 31.1 26.6 - 33.0 pg 03/05/2025 8:34 AM EDT [facility] MCHC 32.9 31.5 - 35.7 g/dL 03/05/2025 8:34 AM EDT [facility] RDW 15.3 12.3 - 15.4 % 03/05/2025 8:34 AM EDT [facility] RDW-SD 53.0 37.0 - 54.0 fl 03/05/2025 8:34 AM EDT [facility] MPV 10.0 6.0 - 12.0 fL 03/05/2025 8:34 AM EDT [facility] Platelets 309 140 - 450 10*3/mm3 03/05/2025 8:34 AM EDT [facility] Blood Venipuncture / Unknown 03/05/2025 8:11 AM EDT 03/05/2025 8:25 AM EDT Willy Santoyo MD LAB BLOOD ORDERABLES Final Res ult [facility]
[address] [place] [address], * (ABNORMAL) C-reactive Protein (03/05/2025 8:11 AM EDT) C-Reactive Protein 9.14(H) 0.00 - 0.50 mg/dL 03/05/2025 3:42 PM EDT [facility] Blood Venipuncture / Unknown 03/05/2025 8:11 AM EDT 03/05/2025 8:25 AM EDT us Angelina K Moises CASTANEDA LAB BLOOD ORDERABLES Final R esult [facility]
[address] [place] [address], [place] [phone] * POC Glucose Once (03/04/2025 11:32 AM EDT) Only the most recent of4 resultswithin the time period is included. Glucose 130 70 - 130 mg/dL 03/04/2025 11:35 AM EDT [facility] Blood 03/04/2025 11:3 2 AM EDT 03/04/2025 11:35 AM EDT Willy Santoyo MD POINT OF CARE TEST ORDERABLES Final Result [facility]
[address] [id number], * DUPLEX CAROTID BILATERAL CAR - PERFORMED [...] motion. No prior for comparison. Mer Dove OIL PROSPECTING OBSERVER CV VASCULAR ORDERABLES Fi nal Result * (ABNORMAL) Phosphorus (03/04/2025 8:42 AM EDT) Phosphorus 2.3(L) 2.5 - 4.5 mg/dL 03/04/2025 9:30 AM EDT [facility] Blood Venipuncture / Unknown 03/04/2025 8:42 AM EDT 03/04/2025 8:53 AM EDT Mack Prince DO LAB BLOOD ORDERABLES Final R esult [facility]
[address] [id number], [place] [phone] * Magnesium (03/04/2025 8:42 AM EDT) Only the most recent of2 resultswithin the time period is included. Magnesium 2.2 1.6 - 2.4 mg/dL 03/04/2025 9:30 AM EDT [facility] Blood Venipuncture / Unknown 03/04/2025 8:42 AM EDT 03/04/2025 8:53 AM EDT Mack Prince DO LAB BLOOD ORDERABLES Final R esult Performing Organization Address [facility] Co de Phone Number [facility]
[address] [place] [address], * (ABNORMAL) Hemoglobin A1c (03/04/2025 8:42 AM EDT) Pathologist [facility] Hemoglobin A1C 6.62(H) 4.80 - 5.60 % 03/04/2025 9:32 AM EDT [facility] Blood Venipuncture / Unknown 03/04/2025 8:42 AM EDT 03/04/2025 8:53 AM EDT Narrative [facility] - 03/04/2025 9:32 AM EDT Hemoglobin A1C Ranges: Increased Risk for Diabetes 5.7% to 6.4% Diabetes >= 6.5% Diabetic Goal < 7.0% Mer Dove APRN LAB BLOOD ORDERABLES Sarah l Result Performing Organization Address City/[facility]/ZIP Co de Phone Number [facility]
[address] [place] [address], * (ABNORMAL) Lipid Panel (03/04/2025 8:42 AM EDT) Pathologist [facility] Total Cholesterol 142 0 - 200 mg/dL 03/04/2025 9:30 AM EDT [facility] Triglycerides 103 0 - 150 mg/dL 03/04/2025 9:30 AM EDT [facility] HDL Cholesterol 34(L) 40 - 60 mg/dL 03/04/2025 9:30 AM EDT [facility] LDL Cholesterol 89 0 - 100 mg/dL 03/04/2025 9:30 AM EDT [facility] VLDL Cholesterol 19 5 - 40 mg/dL 03/04/2025 9:30 AM EDT [facility] LDL/HDL Ratio 2.57 03/04/2025 9:30 AM EDT [facility] Blood Venipuncture / Unknown 03/04/2025 8:42 AM EDT 03/04/2025 8:53 AM EDT Narrative [facility] - 03/04/2025 9:30 AM EDT Cholesterol [...] APRN LAB BLOOD ORDERABLES Sarah antunez Result [facility]
[address] [place] [address], * (ABNORMAL) Comprehensive Metabolic Panel (03/04/2025 8:42 AM EDT) Glucose 130(H) 65 - 99 mg/dL 03/04/2025 9:30 AM [facility] BUN 16.7 8.0 - 23.0 mg/dL 03/04/2025 9:30 AM [facility] Creatinine 0.77 0.76 - 1.27 mg/dL 03/04/2025 9:30 AM [facility] Sodium 137 136 - 145 mmol/L 03/04/2025 9:30 AM [facility] Potassium 3.7 3.5 - 5.2 mmol/L 03/04/2025 9:30 AM [facility] Chloride 101 98 - 107 mmol/L 03/04/2025 9:30 AM [facility] CO2 25.0 22.0 - 29.0 mmol/L 03/04/2025 9:30 AM [facility] Calcium 8.1(L) 8.6 - 10.5 mg/dL 03/04/2025 9:30 AM [facility] Total Protein 6.8 6.0 - 8.5 g/dL 03/04/2025 9:30 AM [facility] Albumin 3.5 3.5 - 5.2 g/dL 03/04/2025 9:30 AM [facility] ALT (SGPT) 10 1 - 41 U/L 03/04/2025 9:30 AM [facility] AST (SGOT) 13 1 - 40 U/L 03/04/2025 9:30 AM [facility] Alkaline Phosphatase 62 39 - 117 U/L 03/04/2025 9:30 AM [facility] Total Bilirubin 0.3 0.0 - 1.2 mg/dL 03/04/2025 9:30 AM [facility] Globulin 3.3 gm/dL 03/04/2025 9:30 AM [facility] Comment:Calculated Result A/G Ratio 1.1 g/dL 03/04/2025 9:30 AM [facility] BUN/Creatinine Ratio 21.7 7.0 - 25.0 03/04/2025 9:30 AM EDT [facility] Anion Gap 11.0 5.0 - 15.0 mmol/L 03/04/2025 9:30 AM EDT [facility] eGFR 89.4 >60.0 mL/min/1.7 3 03/04/2025 9:30 AM EDT [facility] Blood Venipuncture / Unknown 03/04/2025 8:42 AM EDT 03/04/2025 8:53 AM EDT Narrative [facility] - 03/04/2025 9:30 AM EDT GFR [...] ORDERABLES Final R esult Performing Organization Address City/[facility]/ZIP Co de Phone Number [facility]
[address] [place] [address], * Potassium (03/03/2025 10:22 PM EDT) Potassium 3.8 3.5 - 5.2 mmol/L 03/03/2025 11:12 PM EDT [facility] Blood Venipuncture / Unknown 03/03/2025 10:22 PM EDT 03/03/2025 10:42 PM EDT us Mack Prince DO LAB BLOOD ORDERABLES Final R esult [facility]
[address] [place] [address], * ECG 12 Lead Stroke Evaluation (03/03/2025 [...] Confirmed By: Scotty Perez us Mer Dove OIL PROSPECTING OBSERVER ECG ORDERABLES Final Res ult ECG * [...] MD 03/04/2025 5:55 AM EDT Workstation ID: [id number] Lenore 03/04/2025 5:55 AM EDT MRI LUMBAR [...] MD 03/04/2025 5:55 AM EDT Workstation ID: [id number] Mer Dove APRN IM MRI ORDERABLES Final [...] MD 03/03/2025 9:09 PM EDT Workstation ID: [id number] Narrative 03/03/2025 9:09 PM EDT MRI BRAIN [...] MD 03/03/2025 9:09 PM EDT Workstation ID: [id number] [employer] OIL PROSPECTING OBSERVER [facility] MRI ORDERABLES Final Result * XR Outside [...] procedure was auto-finalized with no dictation required. [employer] OIL PROSPECTING OBSERVER IMG CT ORDERABLES Final R esult from Last [facility] Months [facility] Of Support Discussed With: Patient Care Teams Traffic Control Operator Relationship Specialty Start Date End Date Shahid Guthrie MD [address] [facility] [address] [place] [id number] PCP - General Internal Medicine 12/24/23
--- OUTSIDE RECORDS SUMMARY | 2025-05-09 18:31 | XMS_ITS | Encounter Summary ---
[facility] Address [address] [place] [address] Care Team Providers Care Database Design Analyst Name Role Phone Shahid Guthrie MD Primary Care Provider [phone] Encounter Details Date Type Department Care Team (Late st Contact Info) Description 03/15/2025 Results Follow-Up [facility] [address] [phone] Ok Richards MD [address] [place] [id number] Social History Tobacco Use Types Packs/Day Years Used Date Smoking Tobacco: Former Cigarettes Smokeless Tobacco: Never Alcohol Use Standard Drinks/Week Comments Not Currently 0 (1 standard drink = 0.6 oz pur e alcohol) [facility] Utilities Answer Date Recorded In the past 12 months has [employer], gas, oil, or water [employer] threatened to shut off services in your [...] care, and heating? Not very hard 03/05/2025 [facility] of Occupat ional Health - Occupational Stress [...] EST Appointment [facility] [address] [phone] 05/22/2025 11:30 AM EST Office Visit [facility] [address] [phone] Chris Aponte, CHEMISTRY LABORATORY TECHNICIAN [address] [phone] documented as of this encounter Visit Diagnoses Not on filedocumented in this encounter Care Teams Database Design Analyst Relationship Specialty Start Date End Date Shahid Guthrie MD [address] [facility] [address] [place] [address] PCP - General Internal Medicine 12/24/23 documented as of this encounter
--- OUTSIDE RECORDS SUMMARY | 2025-05-09 18:31 | XMS_ITS | Encounter Summary ---
Author Organization [facility] Address [address] [place] [address] Care Team Providers Care Yarn Dyer Name Role Phone Shahid Guthrie MD Primary Care Provider [phone] Reason for Visit * Reason Comments Med Refill Encounter Details Date Type Department Care Team (Late st Contact Info) Description 01/01/2025 Refill [facility] [address] [phone] Ok Richards MD [address] [phone] Social History Tobacco Use Types Packs/Day Years [...] PM EDT Need all labs done at [facility] this month for review prior to [...] 05/22/2025 11:00 AM EST Appointment [facility]EXA [address] [phone] 05/22/2025 11:30 AM EST Office Visit [facility] [address] [phone] Chris Aponte APRN [address] [address] documented as of this encounter Visit Diagnoses Not on filedocumented in this encounter Additional Health Concerns Infection Onset Date Last Indicated Resolved Time C.difficile 03/06/2025 03/06/2025 03/07/2025 8:34 AM EDT documented as of this encounter Care Teams Yarn Dyer Relationship Specialty Start Date End Date Shahid Guthrie MD [address] [facility] [address] [place] [address] PCP - General Internal Medicine 12/24/23 documented as of this encounter
--- OUTSIDE RECORDS SUMMARY | 2025-05-09 18:32 | XMS_ITS | Encounter Summary ---
[facility] Address [address] [place] [address] Care Team Providers Care Dry Mixer Name Role Phone Shahid Guthrie MD Primary Care Provider [phone] Reason for Visit * Reason Onset Date Comments Advice Only 03/30/2025 Encounter Details Date Type Department Care Team (Late st Contact Info) Description 03/30/2025 Telephone [facility] [address] [phone] Ok Richards MD [address] [address] Advice Only Social History Tobacco Use Types Packs/Day Years Used Date Smoking Tobacco: Former Cigarettes Smokeless Tobacco: Never Alcohol Use Standard Drinks/Week Comments Not Currently 0 (1 standard drink = 0.6 oz pur e alcohol) [facility] Utilities Answer Date Recorded In the past 12 months has [employer], oil, or water [employer] threatened to shut off services in your [...] care, and heating? Not very hard 03/05/2025 [facility] of Occupat ional Health - [...] GED or equivalent Yes 03/05/2025 Preferred Language Yi 03/05/2025 PHQ-2 Answer Date Recorded Patient Health [...] spoke with pt. He is currently at [facility] in [place] (In-patient). I gave him the information with Dr. Richards and he will discuss with his providers at rehab. He verbalized understanding. -EDWIN Foster * Telephone Encounter - Patti Davila RegSched Rep - 03/30/2025 11:40 AM EDT Hub staff attempted to follow warm transfer process and was unsuccessful Caller: Mack Bower Relationship: Self Best call back number: [phone] Which medication are you concerned about: sulfaSALAzine [...] Info) Description 05/22/2025 11:00 AM EST Appointment [facility]EXA [address] [phone] 05/22/2025 11:30 AM EST Office Visit [facility] [address] [phone] Chris Aponte, LEONEL [address] [phone] documented as of this encounter Visit Diagnoses Not on filedocumented in this encounter Care Teams Dry Mixer Relationship Specialty Start Date End Date Shahid Guthrie MD [address] [facility] [address] [facility] [address] [place] [address] PCP - General Internal Medicine 12/24/23 documented as of this encounter
--- OUTSIDE RECORDS SUMMARY | 2025-05-09 18:32 | XMS_ITS | Clinical Summary ---
Author Organization Healthcare Address [address] [place] [address] Care Team Providers Care Transportation Planner Name Role Phone Unavailable Primary Care Provider [...] (2 of 2 - PCV) 05/06/2021 05/06/2020 [id number] Vaccine ( - 2024- season) 2025 04/20/2022, [...] age to complete [place] [phone] COUNTS INCLUDE 234 BEDS AT THE [facility]
--- NOTE | 2025-05-09 18:34 | XR_ITS ---
PROCEDURE INFORMATION: Exam: XR Left Knee Exam date and time: 05/09/2025 7:09 PM Age: 84 years old Clinical indication: Pain; Knee; Left; Additional info: Left knee pain TECHNIQUE: Imaging protocol: Radiologic exam of the left knee. Views: 3 views. 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 Moderate osteophytosis and degenerative changes involve the 3 compartments of the left knee. Suprapatellar effusion with air densities which could represent septic arthritis. Soft tissues: Normal. IMPRESSION: Suprapatellar effusion with air densities which could represent septic arthritis.
--- NOTE | 2025-05-09 18:35 | ED_ITS ---
<Statement entered by Rich Colbert MD - 05/09/25 21:42> I was consulted by the LU, and we discussed the complexity of the problems being addressed. I approved the treatment and management plan for this patient's care in the emergency department, thus performing a substantive portion of the medical decision making. Rich Colbert MD, REGINA, FACEP Discharge Plan Disposition Patient Disposition: Admitted Condition: Fair Clinical Impressions Clinical Impression: Left knee pain, Effusion of knee joint, left Discharge ED Provider: Rich Colbert General Adult HPI <SHERRI Tate - Last Filed: 05/09/25 21:22> General Chief complaint: Extremity Problem,Nontraumatic Stated complaint: L knee pain Time Seen by Provider: 05/09/25 18:30 Mode of Arrival: EMS Source of Information: Patient, EMS and Medical Record History of Present Illness HPI narrative: 84-year-old male presents to the emergency department via EMS, from long-term facility, with left knee pain that is atraumatic, patient states his knee pain started around 10 PM , last night, patient has been undergoing physical therapy, for rehabilitation of his bilateral knee pain, left worse than right, last physical therapy was yesterday, patient states his knee pain is gradually worsened throughout the day, has range of motion but has difficulty with range of motion, was recently seen by orthopedic surgeon and outpatient on 05/03/2025, had cortisone injection of the right knee, he is scheduled to have a cortisone injection of left knee tomorrow. Patient denies any fever chills chest pain shortness of breath nausea vomiting constipation diarrhea, no abdominal pain, no urinary type symptomatology, denies any lower back pain, denies any radicular type symptomatology, denies any urinary bladder or bowel dysfunction, denies any saddle anesthesia, denies any numbness or tingling, other past medical history consistent with osteoarthritis of bilateral knees, intracranial atherosclerotic disease, history of squamous cell carcinoma of skin, T2DM, CHALINO, hyperlipidemia, CAD, hypertension, atrial fibrillation on anticoagulation therapy with Eliquis. Initial triage vitals are notable for hypertensive over 190 systolic, could be in the setting of pain, otherwise unremarkable, on 2 L nasal cannula baseline. Please note that above description of symptoms, in this electronic medical record under categorization of recalled from ER triage doctor by RN are reflective of an initial nursing assessment, however, is not reflective of my full history and physical exam that was personally taken and clarified. Consequentially, this preceding description of symptoms, which may include the patient's categorized chief complaint in the EMR, do not reflect my personal clinical impression, and the ultimate description of history of present illness and patient stated complaints should be deferred to this section of the note. Unless stated otherwise or congruent with this section of the note, additional signs, symptoms, or incongruence should be interpreted as inaccurate with my clinical impression. Onset (ago): hour(s) Related Data Home Medications ?Medication ?Instructions ?Recorded ?Confirmed naproxen sodium 220 mg tablet 220 mg PO BIDP PRN Mild Pain 04/11/24 05/03/25 (Aleve) (Scale Score 1-4) prednisone 1 mg tablet 2 mg PO DAILY 04/11/2405/03 sulfasalazine 500 mg 1 g PO BID 01/30/25 05/03/25 tablet,delayed release bumetanide 1 mg tablet 1 mg PO DAILY 03/02/2505/03 carvedilol 6.25 mg tablet (Coreg) 6.25 mg PO BIDWMEAL 03/02/25 05/03/25 empagliflozin 25 mg-linagliptin 5 1 tab PO DAILY 03/0205/03/25 mg tablet (Glyxambi) polyethylene glycol 3350 17 17 g PO DAILY 03/02/25 gram/dose oral powder (Miralax) potassium chloride 20 mEq 20 meq PO DAILY 03/02/25 tablet,extended release(part/cryst) pravastatin 40 mg tablet 40 mg PO DAILY 03/02/2504/18 valsartan 320 1 tab PO DAILY 03/02/2504/18 mg-hydrochlorothiazide 25 mg tablet methotrexate sodium 2.5 mg tablet 2.5 mg PO WEEKLY 05/03/25 pantoprazole 20 mg tablet,delayed 20 mg PO DAILY 05/0305/03/25 release tramadol 50 mg tablet 50 mg PO DAILY 05/03/2504/18 Previous Rx's ?Medication ?Instructions ?Recorded apixaban 5 mg tablet 5 mg PO BID 30 days #60 tabs 12/27/24 verapamil 240 mg 24 hr 240 mg PO BID #60 caps 03/14 capsule,extended release doxazosin 4 mg tablet (Cardura) 4 mg PO DAILY #30 tabs 03/20/25 albuterol sulfate 90 mcg/actuation See Rx Instructions .Route 04/27/25 aerosol inhaler .COMPLEX #9 grams Allergies Allergy/AdvReac Type Severity Reaction Status Date / Time amlodipine Allergy Mild edema Verified 05/03/25 10:00 [facility] <SHERRI Tate - Last Filed: 05/09/25 21:22> [facility] Disclaimer: The information contained in this section may have been updated after the patient was seen, as this information can be updated by other users. Medical History Renal cyst Hyperlipidemia Skin cancer Rheumatoid arthritis Diabetes mellitus, type 2 Diplopia Hypertension Night sweats Back pain Aortic valve sclerosis Diastolic dysfunction Abnormal electrocardiogram [ECG] [EKG] Atrial fibrillation Paroxysmal atrial fibrillation Melanoma Diplopia Surgical History History of right cataract surgery History of left cataract surgery H/O hernia repair 10-20 years ago Family History Other Brain cancer Family history of asthma Family history of diabetes mellitus type II Liver cancer Lung cancer Skin cancer Social History Smoking Status: Former smoker alcohol intake: never current occupational status: retired Travel in the last 8 weeks?: None caffeine: Yes Have you lived/traveled outside [place] in past 30 days?: No Contact w/someone who lives/traveled outside US past 30 days?: No Exposure to someone with infectious disease in past 14 days?: No Do you have a fever (greater than 100.4 F or 38 C)?: No Have you tested positive for COVID-19?: No Exposed to someone with COVID-19 in past 14 days?: No Do you have a sore throat?: No Do you have a cough?: No Do you have any weakness?: No Do you have any diarrhea?: No Are you experiencing any unusual bleeding?: No Do you have any muscle aches/pain?: No Do you have any abdominal pain?: No Are you experiencing loss of taste or smell?: No Other Medical History Have you received the Flu Vaccine for this season: No Have you received the Pneumonia Vaccine: Yes <SHERRI Tate - Last Filed: 05/09/25 21:22> ROS Obtained: Yes All systems reviewed & no additional complaints except as documented Physical Exam <HSERRI Tate - Last Filed: 05/09/25 21:22> General General appearance: alert and in no apparent distress Head Head exam: atraumatic and normocephalic Eye Eye exam: Present PERRL and EOMI ENT ENT exam: Present mucous membranes moist Neck Neck exam: Present normal inspection Chest Chest inspection: Present normal inspection and symmetric chest wall rise Respiratory Respiratory exam: Present normal lung sounds bilaterally; Absent respiratory distress Cardiovascular Cardiovascular exam: Present regular rate and normal rhythm Abdominal Exam Abdominal exam: Present soft; Absent tenderness Extremities Exam Extremities exam: Present normal inspection, tenderness, joint swelling and other (Patient has some soft tissue swelling/joint effusion to the left knee, patient has some difficulty range of motion, but does have range of motion of the knee, some difficulty with extension, does have good range of motion with flexion, pain to palpation to the patellar region, patella is mobile and ); Absent full ROM Neurological Exam Neurological exam: Present alert and oriented X3 Psychiatric Psychiatric exam: Present normal affect Skin Skin exam: Present warm, dry and other (Multiple areas of excoriations of the skin on the face and bilateral arms, appear to be chronic) Medical Decision Making <SHERRI Tate - Last Filed: 05/09/25 21:22> Medical Records Medical records reviewed: Yes I reviewed the patient's medical records. Screening: Per USPSTF and CDC recommendations, given the prevalence of disease in our region, it is our hospital?s policy to screen for HIV and viral Hepatitis for all patients aged 18 and over and those with ongoing risk factors. Main Inquiry Pt receiving controlled substance: Yes Main was queried for this patient: No Reason not queried -: Emergent pt cond-no time Risks and benefits of using a controlled substance: were discussed with pt by me Vital Signs: 05/09/25 18:35 05/09/25 18:35 05/09/25 19:00 Temperature 97.4 F L 97.4 F L Temperature Source Axillary Pulse Rate 83 82 Pulse Rate [Right] 83 Respiratory Rate 18 18 Blood Pressure 195/117 H 198/109 H Blood Pressure [Right Arm] 195/117 H Blood Pressure Mean [Right Arm] 143 02 Sat by Pulse Oximetry 96 96 97 Oxygen Delivery Method Nasal Cannula Room Air Oxygen Flow Rate (LPM) 3 05/09/25 20:10 05/09/25 20:30 05/09/25 21:00 Temperature Temperature Source Pulse Rate 80 83 87 Pulse Rate [Right] Respiratory Rate Blood Pressure 187/120 H 209/117 H 213/119 H Blood Pressure [Right Arm] Blood Pressure Mean [Right Arm] 02 Sat by Pulse Oximetry 98 98 97 Oxygen Delivery Method Oxygen Flow Rate (LPM) Lab Data Lab results reviewed: Yes I reviewed the patient's lab results. Lab Results 05/09/25 18:15: WBC 17.5 H, RBC 4.97, Hgb 13.3 L, Hct 41.1 L, MCV 82.7, MCH 26.8 L, MCHC 32.4, RDW 17.2, Plt Count 628 H, MPV 8.9, Neut % (Auto) 83.1 H, Lymph % (Auto) 7.3 L, Williams % (Auto) 7.2, Eos % (Auto) 0.1, Baso % (Auto) 0.4, Neut # (Auto) 14.5 H, Lymph # (Auto) 1.3, Williams # (Auto) 1.3 H, Eos # (Auto) 0.0, Baso # (Auto) 0.1, ESR 18, Sodium 133 L, Potassium 4.5, Chloride 94 L, Carbon Dioxide 27, Anion Gap 16.5 H, BUN 16, Creatinine 0.80, Estimated Creat Clear 82, Estimated GFR 93, Est GFR ( Amer) 112, Glucose 143 H, Calcium 9.1, Total Bilirubin 1.2, AST 21, ALT 18, Alkaline Phosphatase 90, C-Reactive Protein 37.1 H, Total Protein 7.7, Albumin 4.2, Globulin 3.5 H, Albumin/Globulin Ratio 1.2 05/09/25 18:55: Lactate 1.4 05/09/25 18:15 05/09/25 18:15 Orders (Tests/Meds): ED MEDICATIONS Generic Name Dose Route Start Last Admin Trade Name Freq PRN Reason Stop Dose Admin Hydromorphone HCl 0.5 mg 05/09/25 21:13 05/09/25 21:22 Hydromorphone 2mg/Ml Syringe IV 05/09/25 21:14 0.5 mg ONCE ONE Administration Discontinued Medications Generic Name Dose Route Start Last Admin Trade Name Darlene PRN Reason Stop Dose Admin Iopamidol 100 ml 05/09/25 19:27 05/09/25 19:28 Iopamidol-370 (76%);100ml Bottle IV 05/09/25 19:28 100 ml ONCE ONE Administration Lidocaine HCl 10 ml 05/09/25 18:38 05/09/25 18:52 Lidocaine 1% 10ml Mdv IJ 05/09/25 18:39 8 ml ONCE ONE Administration Lidocaine HCl 10 ml 05/09/25 19:44 05/09/25 20:10 Lidocaine 1% 10ml Mdv IJ 05/09/25 19:45 10 ml ONCE ONE Administration Morphine Sulfate 2 mg 05/09/25 19:06 05/09/25 19:26 Morphine 2mg/Ml Syringe IV 05/09/25 19:07 2 mg ONCE ONE Administration Morphine Sulfate 2 mg 05/09/25 19:55 05/09/25 20:10 Morphine 2mg/Ml Syringe IV 05/09/25 19:56 2 mg ONCE ONE Administration Ondansetron HCl 4 mg 05/09/25 19:06 05/09/25 19:26 Ondansetron 4mg/2ml Vial IV 05/09/25 19:07 4 mg ONCE ONE Administration Sodium Chloride 50 ml 05/09/25 19:27 05/09/25 19:28 0.9 % Sodium Chloride 50 Ml Vial IV 05/09/25 19:28 50 ml ONCE ONE Administration Sodium Chloride 10 ml 05/09/25 19:27 05/09/25 19:28 Sodium Chloride 0.9% 10ml Syr (Rad Only) IV 05/09/25 19:28 10 ml ONCE ONE Administration ORDERS Category Date Time Status CT knee LT w con Stat Cat Scan 05/09/25 18:57 Completed XR knee LT 3V Stat Exams 05/09/25 18:34 Completed Body Fluid: Cell Count w/ Diff Stat Lab 05/09/25 18:34 Ordered CRP [C-Reactive Protein] Stat Lab 05/09/25 18:15 Completed Complete Blood Count Auto Diff Stat Lab 05/09/25 18:15 Completed Comprehensive Metabolic Panel Stat Lab 05/09/25 18:15 Completed ESR [Erythrocyte Sedimentation Rate] Stat Lab 05/09/25 18:15 Completed Lactic Acid Stat Lab 05/09/25 18:55 Completed Synovial Fluid Crystals Stat Lab 05/09/25 18:34 Ordered Body Fluid Cult & Gram Stain Stat Micro 05/09/25 18:34 Ordered Medical Decision Narrative: 84-year-old male presents to the emergency department with left atraumatic knee pain since yesterday, differential diagnose include but not limited to, inflammatory arthropathy, osteoarthritis, septic arthritis, left knee sprain/strain, bursitis among others. I discussed this patient's case with the attending physician Dr. Colbert he saw and examined the patient as well Will obtain basic laboratory studies, CRP ESR, lactic acid level, x-ray of the left knee, I will with the attending physician will perform diagnostic arthrocentesis of the patient's left knee effusion, will give the patient 2 mg IV morphine for more Zofran for pain and nausea. I along with the attending physician attempted arthrocentesis of the left knee, see procedure note for full details, utilizing sterile fashion, arthrocentesis was unsuccessful, no joint fluid is obtained, bloody, thus will obtain CT of the left knee with contrast for further evaluation/characterization CBC is notable for leukocytosis 17.5, hemoglobin is 13.3, hematocrit 41.1 thrombocytosis most likely reactive at 628. CMP is noted for mild hyponatremia at 133, ESR within normal limits. CRP is minimally elevated at 37.1, otherwise unremarkable CMP No lactic acidosis. Attending physician discussed this patient case and reviewed the imaging with the on-call orthopedic surgeon Dr. King at approximately 7:35 PM. Recommends retrying arthrocentesis from different approach to obtain synovial fluid sample. Notified the nursing staff at approximately 7:50 PM the patient is still complaining of some pain, will give additional dose of 2 mg IV morphine. Attending physician Dr. Colbert took over this patient's care at approximately 8:50 PM, see further details per attending physician note. <Rich Colbert MD - Last Filed: 05/09/25 21:44> Vital Signs: 05/09/25 18:35 05/09/25 18:35 05/09/25 19:00 Temperature 97.4 F L 97.4 F L Temperature Source Axillary Pulse Rate 83 82 Pulse Rate [Right] 83 Respiratory Rate 18 18 Blood Pressure 195/117 H 198/109 H Blood Pressure [Right Arm] 195/117 H Blood Pressure Mean [Right Arm] 143 02 Sat by Pulse Oximetry 96 96 97 Oxygen Delivery Method Nasal Cannula Room Air Oxygen Flow Rate (LPM) 3 05/09/25 20:10 05/09/25 20:30 05/09/25 21:00 Temperature Temperature Source Pulse Rate 80 83 87 Pulse Rate [Right] Respiratory Rate Blood Pressure 187/120 H 209/117 H 213/119 H Blood Pressure [Right Arm] Blood Pressure Mean [Right Arm] 02 Sat by Pulse Oximetry 98 98 97 Oxygen Delivery Method Oxygen Flow Rate (LPM) Lab Data Lab Results 05/09/25 18:15: WBC 17.5 H, RBC 4.97, Hgb 13.3 L, Hct 41.1 L, MCV 82.7, MCH 26.8 L, MCHC 32.4, RDW 17.2, Plt Count 628 H, MPV 8.9, Neut % (Auto) 83.1 H, Lymph % (Auto) 7.3 L, Williams % (Auto) 7.2, Eos % (Auto) 0.1, Baso % (Auto) 0.4, Neut # (Auto) 14.5 H, Lymph # (Auto) 1.3, Williams # (Auto) 1.3 H, Eos # (Auto) 0.0, Baso # (Auto) 0.1, ESR 18, Sodium 133 L, Potassium 4.5, Chloride 94 L, Carbon Dioxide 27, Anion Gap 16.5 H, BUN 16, Creatinine 0.80, Estimated Creat Clear 82, Estimated GFR 93, Est GFR ( Amer) 112, Glucose 143 H, Calcium 9.1, Total Bilirubin 1.2, AST 21, ALT 18, Alkaline Phosphatase 90, C-Reactive Protein 37.1 H, Total Protein 7.7, Albumin 4.2, Globulin 3.5 H, Albumin/Globulin Ratio 1.2 05/09/25 18:55: Lactate 1.4 Orders (Tests/Meds): ED MEDICATIONS Generic Name Dose Route Start Last Admin Trade Name Freq PRN Reason Stop Dose Admin Hydromorphone HCl 0.5 mg 05/09/25 21:13 05/09/25 21:22 Hydromorphone 2mg/Ml Syringe IV 05/09/25 21:14 0.5 mg ONCE ONE Administration Discontinued Medications Generic Name Dose Route Start Last Admin Trade Name Freq PRN Reason Stop Dose Admin Iopamidol 100 ml 05/09/25 19:27 05/09/25 19:28 Iopamidol-370 (76%);100ml Bottle IV 05/09/25 19:28 100 ml ONCE ONE Administration Lidocaine HCl 10 ml 05/09/25 18:38 05/09/25 18:52 Lidocaine 1% 10ml Mdv IJ 05/09/25 18:39 8 ml ONCE ONE Administration Lidocaine HCl 10 ml 05/09/25 19:44 05/09/25 20:10 Lidocaine 1% 10ml Mdv IJ 05/09/25 19:45 10 ml ONCE ONE Administration Morphine Sulfate 2 mg 05/09/25 19:06 05/09/25 19:26 Morphine 2mg/Ml Syringe IV 05/09/25 19:07 2 mg ONCE ONE Administration Morphine Sulfate 2 mg 05/09/25 19:55 05/09/25 20:10 Morphine 2mg/Ml Syringe IV 05/09/25 19:56 2 mg ONCE ONE Administration Ondansetron HCl 4 mg 05/09/25 19:06 05/09/25 19:26 Ondansetron 4mg/2ml Vial IV 05/09/25 19:07 4 mg ONCE ONE Administration Sodium Chloride 50 ml 05/09/25 19:27 05/09/25 19:28 0.9 % Sodium Chloride 50 Ml Vial IV 05/09/25 19:28 50 ml ONCE ONE Administration Sodium Chloride 10 ml 05/09/25 19:27 05/09/25 19:28 Sodium Chloride 0.9% 10ml Syr (Rad Only) IV 05/09/25 19:28 10 ml ONCE ONE Administration ORDERS Category Date Time Status CT knee LT w con Stat Cat Scan 05/09/25 18:57 Completed XR knee LT 3V Stat Exams 05/09/25 18:34 Completed Body Fluid: Cell Count w/ Diff Stat Lab 05/09/25 18:34 Ordered CRP [C-Reactive Protein] Stat Lab 05/09/25 18:15 Completed Complete Blood Count Auto Diff Stat Lab 05/09/25 18:15 Completed Comprehensive Metabolic Panel Stat Lab 05/09/25 18:15 Completed ESR [Erythrocyte Sedimentation Rate] Stat Lab 05/09/25 18:15 Completed Lactic Acid Stat Lab 05/09/25 18:55 Completed Synovial Fluid Crystals Stat Lab 05/09/25 18:34 Ordered Body Fluid Cult & Gram Stain Stat Micro 05/09/25 18:34 Ordered Medical Decision Narrative: 84-year-old male presents to the emergency department with left atraumatic knee pain since yesterday, differential diagnose include but not limited to, inflammatory arthropathy, osteoarthritis, septic arthritis, left knee sprain/strain, bursitis among others. I discussed this patient's case with the attending physician Dr. Colbert he saw and examined the patient as well Will obtain basic laboratory studies, CRP ESR, lactic acid level, x-ray of the left knee, I will with the attending physician will perform diagnostic arthrocentesis of the patient's left knee effusion, will give the patient 2 mg IV morphine for more Zofran for pain and nausea. I along with the attending physician attempted arthrocentesis of the left knee, see procedure note for full details, utilizing sterile fashion, arthrocentesis was unsuccessful, no joint fluid is obtained, bloody, thus will obtain CT of the left knee with contrast for further evaluation/characterization CBC is notable for leukocytosis 17.5, hemoglobin is 13.3, hematocrit 41.1 thrombocytosis most likely reactive at 628. CMP is noted for mild hyponatremia at 133, ESR within normal limits. CRP is minimally elevated at 37.1, otherwise unremarkable CMP No lactic acidosis. Attending physician discussed this patient case and reviewed the imaging with the on-call orthopedic surgeon Dr. King at approximately 7:35 PM. Recommends retrying arthrocentesis from different approach to obtain synovial fluid sample. Notified the nursing staff at approximately 7:50 PM the patient is still complaining of some pain, will give additional dose of 2 mg IV morphine. Attending physician Dr. Colbert took over this patient's care at approximately 8:50 PM, see further details per attending physician note. This is Dr. Colbert I personally attempted the arthrocentesis and I am positive that I was within the joint capsule itself but there was nothing able to be aspirated. For this reason a CT scan was performed to see if there is any significant joint effusion which in fact there was. There was gas within the joint which was almost certainly introduced from os and a very dense fluid collection that could be infectious or inflammatory synovial fluid. I discussed the case with Dr. King. Given the fact that the joint is not red or warm he has no fever and is very unlikely that this is an infected joint. It is possible that this is a flare of rheumatoid arthritis or osteoarthritis. He has an appointment tomorrow with orthopedic surgery. However Dr. King is out of town. Patient continued to have severe pain requiring increasing doses of opiates. Ultimately we put the patient in the hospital for an MRI to further evaluate for possible septic arthritis but that is very low likelihood. We are aware that there is no surgical intervention currently available at our hospital as Dr. King is out but ultimately the patient was admitted for pain control and to get an MRI there is a remote possibility that there is an increasing concern for a septic joint at which point the patient will need to be transferred. I did discuss this case and this is an area with hospital medicine who agreed to admit this patient I do not feel that the patient need to be transferred at the moment as the likelihood of this diagnosis is low. Family and everyone is on board with this plan. Procedures <SHERRI Tate - Last Filed: 05/09/25 21:22> Joint Aspiration/Injection Joint Asp./Inject. 1: Time Out Performed: No Side of body: left Joint Aspirated: knee Ultrasound Guidance: Yes Skin Prep: Chlorhexidine Local Anesthetic: lidocaine 1% Amount of anesthesia used (mL): 7 Needle Size Used: 18G Fluid Obtained: bloody Total fluid obtained (mL): 0 Patient Tolerated Procedure: well and no complications Complications: unable to obtain fluid Critical Care <SHERRI Tate - Last Filed: 05/09/25 21:22> Critical Care Time Critical Care Time: No <Rich Colbert MD - Last Filed: 05/09/25 21:44> Critical Care Time Critical Care Time: Yes Attestation: On 05/09/25, the high probability of a clinically significant, sudden or life threatening deterioration of the following system(s) required my full and direct attention, intervention and personal management. The time I documented below is in addition to time spent performing reported procedures but includes the following listed in this critical care notation. Total Time Total Critical Care Time: 35
[2025-05-09 18:40] LABS: Hematocrit 41.1 % (42.0-52.0); Hemoglobin 13.3 g/dL (14.1-18.0); Immature Granulocytes % 1.9 %; Mean Corpuscular HGB Conc 32.4 g/dL (31.8-35.4); Mean Corpuscular Hemoglobin 26.8 pg (27.0-31.2); Mean Corpuscular Volume 82.7 fl (80-94); Nucleated Red Blood Cells % 0.2 %; Platelet Count 628 K/mm3 (142-424); Red Blood Count 4.97 M/mm3 (4.60-6.20); Red Cell Distribution Width-SD 49.0 fL; White Blood Count 17.5 K/mm3 (4.8-10.8)
[2025-05-09] MEDS: LIDOCAINE 1% 10ML MDV 10 ML IJ ×2 (18:52→20:10)
--- NOTE | 2025-05-09 18:57 | CT_ITS ---
PROCEDURE INFORMATION: Exam: CT Left Lower Extremity With Contrast, Knee Exam date and time: 05/09/2025 7:20 PM Age: 84 years old Clinical indication: Pain; Knee; Left; Additional info: Left knee pain, atraumatic TECHNIQUE: Imaging protocol: CT of the left lower extremity with intravenous contrast was performed. Exam focused on the knee. Radiation optimization: All CT scans at this facility use at least one of these dose optimization techniques: automated exposure control; mA and/or kV adjustment per patient size (includes targeted exams where dose is matched to clinical indication); or iterative reconstruction. Contrast material: ISOVUE; Contrast volume: 100 ml; Contrast route: IV; COMPARISON: CR XR KNEE LT 3V 05/09/2025 7:09 PM FINDINGS: Bones/joints: Minimally displaced lateral tibial plateau irregularities with approximately 7.8 mm of depression at the articular surface of indeterminate chronicity. Osteochondral depression fracture of the lateral facet of the femoral trochlea with 5.4 mm of depression of indeterminate chronicity. Moderate volume suprapatellar effusion with complex attenuation in synovial enhancement with internal air densities which could represent infectious synovitis. Soft tissues: Normal. Vasculature: Moderate calcific atherosclerotic disease of the left superficial femoral artery and popliteal artery resulting in moderate stenosis. IMPRESSION: 1. Minimally displaced lateral tibial plateau irregularities with approximately 7.8 mm of depression at the articular surface of indeterminate chronicity. 2. Osteochondral depression fracture of the lateral facet of the femoral trochlea with 5.4 mm of depression of indeterminate chronicity. 3. Moderate volume suprapatellar effusion with complex attenuation in synovial enhancement with internal air densities which could represent infectious synovitis.
[2025-05-09 19:02] LABS: Alanine Aminotransferase 18 U/L (12-78); Albumin Level 4.2 g/dl (3.5-5.0); Albumin/Globulin Ratio 1.2 (1.1-1.8); Alkaline Phosphatase 90 U/L (38-126); Anion Gap 16.5 mEq/L (5-15); Aspartate Amino Transferase 21 U/L (17-59); Bilirubin,Total 1.2 mg/dl (0.2-1.3); Blood Urea Nitrogen 16 mg/dl (9-20); Calcium 9.1 mg/dl (8.4-10.2); Carbon Dioxide 27 mmol/L (22.0-30.0); Chloride 94 mmol/L (98-107); Creatinine Clearance Estimated 82 mL/min (50-200); Creatinine,Serum 0.80 mg/dl (0.66-1.25); Estimated Glomerular Filt Rate 93 ml/min (>60); GFR (African American) 112 ML/MIN (>60); Globulin 3.5 g/dL (1.3-3.2); Glucose 143 mg/dl (74-100); Potassium 4.5 mmoL/L (3.5-5.1); Sodium 133 mmol/L (136-145); Total Protein,Serum 7.7 g/dl (6.3-8.2)
[2025-05-09 19:07] LABS: C-Reactive Protein 37.1 mg/L (0-4)
[2025-05-09] MEDS: MORPHINE 2MG/ML SYRINGE 2 MG IV ×2 (19:26→20:10)
[2025-05-09] MEDS: ONDANSETRON 4MG/2ML VIAL 4 MG IV (19:26)
[2025-05-09] MEDS: IOPAMIDOL-370 (76%);100ML BOTTLE 100 ML IV (19:28)
[2025-05-09] MEDS: SODIUM CHLORIDE 0.9% 10ML SYR (RAD ONLY) 10 ML IV (19:28)
[2025-05-09] MEDS: 0.9 % SODIUM CHLORIDE 50 ML VIAL IV (19:28)
[2025-05-09] MEDS: HYDROMORPHONE 2MG/ML SYRINGE 0.5 MG IV (21:22)
--- NOTE | 2025-05-09 21:48 | P.HP_ITS ---
<Statement entered by Wilton Sanderson MD - 05/11/25 12:56> Agree with plan of care as outlined by the FURNITURE REMOVALIST. History of Present Illness *Admission Date: 05/09/25 *Reason for visit:: Left knee pain *History of present illness: This is a 84-year-old male who has past medical history significant for renal cyst, hyperlipidemia, skin cancer, rheumatoid arthritis, diabetes, diplopia, hypertension, night sweats, aortic valve sclerosis, diastolic dysfunction, atrial fibrillation, melena, and diplopia who presents with a chief complaint of left knee pain concerning for septic joint. Due to patient's symptoms, he presented to the emergency room for evaluation. While in the emergency room, ER provider attempted arthrocentesis of left knee, but was unable to obtain significant fluid. CT scan of the knee revealed a minimally displaced lateral tibial plateau injury realities with approximately 7.8 mm of depression at the articular surface of intermediate chronicity, osteochondral depression fracture of the lateral facet of the femoral trochlea with 5.4 mm of depression of intermediate chronicity, moderate volume suprapatellar effusion with complex attenuation in the synovial enhancement with interval air densities which could represent infectious synovitis. This case was discussed with the on-call orthopedic surgeon who did not believe patient had an acute infection. However, due to unrelieved pain, patient is being admitted for further management. During my evaluation of the patient, patient states his left knee pain started last night. He was recently seen by the orthopedic team who performed a cortisone injection to the right knee and he is scheduled for a cortisone injection to his left knee. Review of patient's medication shows he is currently prescribed prednisone and methotrexate. When asked, patient states he is taking this medication for rheumatoid arthritis. He states they recently increased his prednisone from 2 mg daily to 10 mg daily. He is currently denying any trauma to the left knee, chest pain, lightheadedness, dizziness, fever, chills, rigors, drainage from the knee, nausea, vomiting, or diarrhea. Additional pertinent vitals obtained included white blood cell count of 17.5, hemoglobin 13.3, hematocrit 41.1, platelet count of 628, neutrophils 83.1%, INR 1.17, sodium 131, chloride of 94, blood glucose 443, and C-reactive protein at 37.1 [facility] Disclaimer: The information contained in this section may have been updated after the patient was seen, as this information can be updated by other users. Medical History Renal cyst Hyperlipidemia Skin cancer Rheumatoid arthritis Diabetes mellitus, type 2 Diplopia Hypertension Night sweats Back pain Aortic valve sclerosis Diastolic dysfunction Abnormal electrocardiogram [ECG] [EKG] Atrial fibrillation Paroxysmal atrial fibrillation Melanoma Diplopia Surgical History History of right cataract surgery History of left cataract surgery H/O hernia repair 10-20 years ago Family History Other Brain cancer Family history of asthma Family history of diabetes mellitus type II Liver cancer Lung cancer Skin cancer Social History Smoking Status: Former smoker alcohol intake: never current occupational status: retired Travel in the last 8 weeks?: None caffeine: Yes Have you lived/traveled outside US in past 30 days?: No Contact w/someone who lives/traveled outside US past 30 days?: No Exposure to someone with infectious disease in past 14 days?: No Do you have a fever (greater than 100.4 F or 38 C)?: No Have you tested positive for COVID-19?: No Exposed to someone with COVID-19 in past 14 days?: No Do you have a sore throat?: No Do you have a cough?: No Do you have any weakness?: No Do you have any diarrhea?: No Are you experiencing any unusual bleeding?: No Do you have any muscle aches/pain?: No Do you have any abdominal pain?: No Are you experiencing loss of taste or smell?: No Other Medical History Have you received the Flu Vaccine for this season: No Have you received the Pneumonia Vaccine: Yes Review of Systems Review of Systems Review of systems:: pertinent systems reviewed and negative unless documented below Constitutional Constitutional: Reports system reviewed and no additional complaints, except as documented Eyes Eyes: Reports system reviewed and no additional complaints, except as documented ENT Ears, Nose, Mouth, and Throat: Reports system reviewed and no additional complaints, except as documented *Cardiovascular Cardiovascular: Reports system reviewed and no additional complaints, except as documented *Respiratory Respiratory: Reports system reviewed and no additional complaints, except as documented *Gastrointestinal Gastrointestinal: Reports system reviewed and no additional complaints, except as documented *Genitourinary Genitourinary: Reports system reviewed and no additional complaints, except as documented *Musculoskeletal Musculoskeletal: Reports abnormal gait and Reports arthralgias Integumentary/Breasts Skin/Breast: Reports system reviewed and no additional complaints, except as documented *Neurologic Neurologic: Reports abnormal gait Psychiatric Psychiatric: Reports system reviewed and no additional complaints, except as documented Endocrine Endocrine: Reports system reviewed and no additional complaints, except as documented Hematologic/Lymphatic Hematologic/Lymphatic: Reports system reviewed and no additional complaints, except as documented Allergic/Immunologic Allergic/Immunologic: Reports system reviewed and no additional complaints, except as documented Meds Home Medications and Allergies Home Medications ?Medication ?Instructions ?Recorded ?Confirmed ?Type naproxen sodium 220 mg tablet 220 mg PO BIDP PRN Mild Pain 04/11/24 05/09/25 History (Aleve) (Scale Score 1-4) prednisone 1 mg tablet 10 mg PO DAILY 04/11/2404/19 History apixaban 5 mg tablet 5 mg PO BID 30 days #60 tabs 12/27/24 05/09/25 Rx bumetanide 1 mg tablet 0.5 mg PO DAILY 03/02/25 History carvedilol 6.25 mg tablet (Coreg) 9.375 mg PO BIDWMEAL 03/02/25 05/09/25 History polyethylene glycol 3350 17 17 g PO DAILY 03/02/25 History gram/dose oral powder (Miralax) potassium chloride 20 mEq 20 meq PO DAILY 03/02/25 History tablet,extended release(part/cryst) pantoprazole 20 mg tablet,delayed 40 mg PO DAILY 05/0305/09/25 History release tramadol 50 mg tablet 50 mg PO Q6HP PRN Pain 05/0305/09/25 History albuterol sulfate 90 mcg/actuation 2 inh inhalation DA [place] 05/09/25 05/09/25 History aerosol inhaler amlodipine 5 mg tablet 5 mg PO DAILY 05/09/2505/09 History aspirin 81 mg chewable tablet 81 mg PO DAILY 05/09/25 05/09/25 History atorvastatin 80 mg tablet 80 mg PO DAILY 05/09/2504/19 History cyanocobalamin (vitamin B-12) 1,000 mcg IM WEEKLY 04/1905/09/25 History 1,000 mcg/mL injection solution empagliflozin 10 mg-linagliptin 5 1 tab PO DAILY 05/0905/09/25 History mg-metformin ER 1,000 mg tablet,24hr (Trijardy XR) folic acid 1 mg tablet 1 mg PO DAILY 05/09/2505/09 History hydrocodone 5 mg-acetaminophen 325 1.5 tab PO Q6HP PRN Pain 05/09/25 05/09/25 History mg tablet methotrexate sodium 2.5 mg tablet 20 mg PO WEEKLY 04/1905/09/25 History valsartan 80 mg tablet 80 mg PO DAILY 05/09/2504/19 History New Prescriptions to Start Prescriptions: Allergies Allergy/AdvReac Type Severity Reaction Status Date / Time amlodipine Allergy Mild edema Verified 05/03/25 10:00 Exam Data for Last 24 hours Vital signs and Labs for Last 24 Hours: Temp Pulse Resp BP Pulse Ox O2 Del Method O2 Flow Rate 97.4 F L 87 18 213/119 H 97 Room Air 3 05/09/25 18:35 05/09/25 21:00 05/09/25 18:35 05/09/25 21:00 05/09/25 21:00 05/09/25 19:00 05/09/25 18:35 Laboratory Results - last 24 hr 05/09/25 18:15: WBC 17.5 H, RBC 4.97, Hgb 13.3 L, Hct 41.1 L, MCV 82.7, MCH 26.8 L, MCHC 32.4, RDW 17.2, Plt Count 628 H, MPV 8.9, Neut % (Auto) 83.1 H, Lymph % (Auto) 7.3 L, [place] % (Auto) 7.2, Eos % (Auto) 0.1, Baso % (Auto) 0.4, Neut # (Auto) 14.5 H, Lymph # (Auto) 1.3, [place] # (Auto) 1.3 H, Eos # (Auto) 0.0, Baso # (Auto) 0.1, ESR 18, Sodium 133 L, Potassium 4.5, Chloride 94 L, Carbon Dioxide 27, Anion Gap 16.5 H, BUN 16, Creatinine 0.80, Estimated Creat Clear 82, Estimated GFR 93, Est GFR ( Amer) 112, Glucose 143 H, Calcium 9.1, Total Bilirubin 1.2, AST 21, ALT 18, Alkaline Phosphatase 90, C-Reactive Protein 37.1 H, Total Protein 7.7, Albumin 4.2, Globulin 3.5 H, Albumin/Globulin Ratio 1.2 05/09/25 18:55: Lactate 1.4 I & O for Last 24 hours: Intake & Output 05/06/25 05/07/25 05/08/25 05/09/25 23:59 23:59 23:59 23:59 Weight 101.605 kg Constitutional Constitutional: no acute distress and thin *Routine HEENT Exam Head: Present normocephalic and atraumatic Eye: Present EOMI and PERRL ENT: Present mucous membranes moist *Routine Neck Exam Neck: Present supple, full ROM and trachea midline *Routine Respiratory Exam Respiratory: Present CTA bilaterally, normal respiratory effort, able to speak in complete sentences and symmetric chest movement *Routine Cardiovascular Exam Cardiovascular: Present RRR and Normal S1 *Routine Abdominal Exam Abdominal: Present soft and normoactive bowel sounds *Routine Rectal Exam Rectal:: deferred *Routine Genitalia Exam Genitalia:: deferred *Routine Extremities Exam Extremities: Present edema, pulses intact and normal capillary refill Comments: Left knee is edematous without any erythema; patient does not have full flexion; patient's active range of motion is decreased and passive range of motion is painful Routine Back/Spine/Pelvis Exam Back/Spine: Present full ROM *Routine Skin Exam Skin: Present intact, dry and warm *Routine Neurological Exam Neurological: Present alert, oriented X3, moving all extremities and normal speech Routine Psychiatric Exam Psychiatric: Present normal affect, normal thought process, cooperative, good insight and good judgment H&P: Result Impressions 84-year-old male presents with atraumatic knee pain with concerns of septic joint aspiration at the bedside in ER was not as fruitful as hoped. Case was discussed with orthopedic team who recommended admission and pain control. Assessment and Plan *Assessment and plan (1) Effusion of knee joint, left: Status: Acute Category: Medical Code(s): M25.462 - Effusion, left knee (2) Knee pain: Status: Acute Qualifiers: Chronicity: acute Laterality: right Qualified Code(s): M25.561 - Pain in right knee Category: Medical Code(s): M25.569 - Pain in unspecified knee (3) Leukocytosis: Status: Acute Qualifiers: Leukocytosis type: unspecified Qualified Code(s): D72.829 - Elevated white blood cell count, unspecified Category: Medical Code(s): D72.829 - Elevated white blood cell count, unspecified (4) Thrombocytosis: Status: Acute Category: Medical Code(s): D75.839 - Thrombocytosis, unspecified (5) Hypertensive urgency: Status: Acute Category: Medical Code(s): I16.0 - Hypertensive urgency Plan Assessment: Left knee effusion Left knee pain --Differential diagnosis septic joint versus rheumatoid arthritis flare - Will empirically treat with 3.375 g of Zosyn IV every 6 hours and 1 g vancomycin IV twice daily pharmacy to dose-will de-escalate antibiotics as deemed - Will obtain MRI of the left knee - Aspiration of the knee did not revealed any fluid because synovial fluid was viscous - Will provide 1 mg of Dilaudid IV push every 4 hours as needed severe pain -5 mg [place] p.o. every 4 hours as needed moderate pain - Will see if we can get the orthopedic team to see him while inpatient; patient was scheduled for a outpatient visit for additional injections of cortisone in his left knee Leukocytosis with left shift - Is not clear on if this is reactive from possible infection or is it because of systemic steroids - Patient is currently prescribed 10 mg of prednisone p.o. daily in the management of rheumatoid arthritis Thrombocytosis - Possibly due to dehydration - Will consider peripheral smear due to leukocytosis and thrombocytosis - Will give gentle IV hydration due to patient's prior history of heart failure - Normal saline at 50 ml/r -Patient's elevated platelet count further helps confirm potential rheumatoid arthritis flare. There is an associated thrombocytosis with rheumatoid arthriti s flare from underlying inflammation -I think dehydration is less likely he appears to be euvolemic Rheumatoid arthritis Immunocompromise - Patient is currently prescribed 10 mg of prednisone daily will increase to 40 mg of prednisone to see if this will help with possible rheumatoid arthritis flare and left knee-subject to change per attending - Once patient's med rec is updated we will continue his DMARD therapy Coagulopathy - Most likely in the setting of DOAC therapy - Patient currently has a diagnosis of atrial fibrillation and has been managed with Eliquis 5 mg p.o. twice daily - Once med rec is updated will restart patient's DOAC therapy Hypertensive urgency -Patient's systolic blood pressure was were in the 190s - Patient is already taken his antihypertensives for today - Will start 50 mg of hydralazine p.o. every 8 hours as needed systolic blood pressure greater than 180 or diastolic blood pressure greater than 110 - Patient is without any endorgan damage to suggest hypertensive emergency Plan: Admit patient to the MedSurg unit Occupational Therapy Physical therapy Case management 1800 ADA/cardiac diet CBC/BMP daily Sliding scale insulin AC and at bedtime with mild scale coverage 4 mg Zofran IV push. Hours. Nausea vomiting Full code I have discussed this case with attending physician Dr. Sanderson and I look forward to more input
--- NOTE | 2025-05-09 21:48 | PC.NURSE ---
report called to Jayda GORDILLO
--- NOTE | 2025-05-09 22:13 | PC.NURSE ---
patient reports chronically high blood pressure (SBP 190's) at [place] without being in pain.
[2025-05-09] MEDS: HYDROMORPHONE 2MG/ML SYRINGE 1 MG IV (22:19)
--- NOTE | 2025-05-09 22:24 | PC.NURSE ---
verified patient home medications via retirement paperwork - paperwork in patient chart in [facility] steward office
[2025-05-09] MEDS: 0.9 % SODIUM CHLORIDE 1000ML 1,000 ML 50 ML IV (22:49)
[2025-05-09] MEDS: HYDRALAZINE HCL 25MG TABLET 50 MG PO (22:50)
[2025-05-10] VITALS (7 sets, daily range): BP systolic 124–162; BP diastolic 67–91; PULSE 83–94; RESP 14–18; TEMP 36.4–36.6; O2SAT 94–99
[2025-05-10] MEDS: PIPERACILLIN/TAZO 3.375 GM in 0.9 % SODIUM CHLORIDE 50 ML IV ×5 (00:15→22:37)
[2025-05-10 05:09] LABS: POC Glucose,Bedside 98 gm/dL (70-110)
[2025-05-10] MEDS: HYDROCODONE/APAP 5/325 MG TABLET 1 TAB PO ×4 (06:03→18:25)
[2025-05-10 06:11] LABS: Hematocrit 40.1 % (42.0-52.0); Hemoglobin 12.6 g/dL (14.1-18.0); Immature Granulocytes % 1.8 %; Mean Corpuscular HGB Conc 31.4 g/dL (31.8-35.4); Mean Corpuscular Hemoglobin 26.5 pg (27.0-31.2); Mean Corpuscular Volume 84.4 fl (80-94); Nucleated Red Blood Cells % 0 %; Platelet Count 500 K/mm3 (142-424); Red Blood Count 4.75 M/mm3 (4.60-6.20); Red Cell Distribution Width-SD 51.5 fL; White Blood Count 18.1 K/mm3 (4.8-10.8)
[2025-05-10 06:32] LABS: Chloride 95 mmol/L (98-107); Potassium 4.4 mmoL/L (3.5-5.1); Sodium 133 mmol/L (136-145)
[2025-05-10 06:35] LABS: Anion Gap 12.4 mEq/L (5-15); Blood Urea Nitrogen 14 mg/dl (9-20); Carbon Dioxide 30 mmol/L (22.0-30.0); Creatinine Clearance Estimated 77 mL/min (50-200); Creatinine,Serum 0.80 mg/dl (0.66-1.25); Estimated Glomerular Filt Rate 93 ml/min (>60); GFR (African American) 112 ML/MIN (>60)
[2025-05-10 06:36] LABS: Calcium 8.5 mg/dl (8.4-10.2); Glucose 103 mg/dl (74-100)
[2025-05-10 06:48] LABS: Procalcitonin 0.174 ng/mL (0.0-2.0)
--- NOTE | 2025-05-10 07:50 | EXP.PHA.CONS ---
Pharmacy Consult Date: 05/10/25 Time: 07:51 Referring provider: DR. PUENTE Reason for Consult:: VANCOMYCIN DOSING Allergies Allergy/AdvReac Type Severity Reaction Status Date / Time amlodipine Allergy Mild edema Verified 05/03/25 10:00 Home Medications ?Medication ?Instructions ?Recorded ?Confirmed ?Type naproxen sodium 220 mg tablet 220 mg PO BIDP PRN Mild Pain 04/11/24 05/09/25 History (Aleve) (Scale Score 1-4) prednisone 1 mg tablet 10 mg PO DAILY 04/11/24 05/09/25 History apixaban 5 mg tablet 5 mg PO BID 30 days #60 tabs 12/27/24 05/09/25 Rx bumetanide 1 mg tablet 0.5 mg PO DAILY 03/02/25 05/09/25 History carvedilol 6.25 mg tablet (Coreg) 9.375 mg PO BIDWMEAL 03/02/25 05/09/25 History polyethylene glycol 3350 17 17 g PO DAILY 03/02/25 05/09/25 History gram/dose oral powder (Miralax) potassium chloride 20 mEq 20 meq PO DAILY 03/02/25 05/09/25 History tablet,extended release(part/cryst) pantoprazole 20 mg tablet,delayed 40 mg PO DAILY 05/03/25 05/09/25 History release tramadol 50 mg tablet 50 mg PO Q6HP PRN Pain 05/03/25 05/09/25 History albuterol sulfate 90 mcg/actuation 2 inh inhalation DAILY 05/09/25 05/09/25 History aerosol inhaler amlodipine 5 mg tablet 5 mg PO DAILY 05/09/25 05/09/25 History aspirin 81 mg chewable tablet 81 mg PO DAILY 05/09/25 05/09/25 History atorvastatin 80 mg tablet 80 mg PO DAILY 05/09/25 05/09/25 History cyanocobalamin (vitamin B-12) 1,000 mcg IM WEEKLY 05/09/25 05/09/25 History 1,000 mcg/mL injection solution empagliflozin 10 mg-linagliptin 5 1 tab PO DAILY 05/09/25 05/09/25 History mg-metformin ER 1,000 mg tablet,24hr (Trijardy XR) folic acid 1 mg tablet 1 mg PO DAILY 05/09/25 05/09/25 History hydrocodone 5 mg-acetaminophen 325 1.5 tab PO Q6HP PRN Pain 05/09/25 05/09/25 History mg tablet methotrexate sodium 2.5 mg tablet 20 mg PO WEEKLY 05/09/25 05/09/25 History valsartan 80 mg tablet 80 mg PO DAILY 05/09/25 05/09/25 History New Prescriptions to Start Prescriptions: Height: 1.78 m Weight: 95.3 kg Laboratory Results:: Laboratory Results - last 24 hr 05/09/25 18:15: WBC 17.5 H, RBC 4.97, Hgb 13.3 L, Hct 41.1 L, MCV 82.7, MCH 26.8 L, MCHC 32.4, RDW 17.2, Plt Count 628 H, MPV 8.9, Neut % (Auto) 83.1 H, Lymph % (Auto) 7.3 L, [place] % (Auto) 7.2, Eos % (Auto) 0.1, Baso % (Auto) 0.4, Neut # (Auto) 14.5 H, Lymph # (Auto) 1.3, [place] # (Auto) 1.3 H, Eos # (Auto) 0.0, Baso # (Auto) 0.1, ESR 18, Sodium 133 L, Potassium 4.5, Chloride 94 L, Carbon Dioxide 27, Anion Gap 16.5 H, BUN 16, Creatinine 0.80, Estimated Creat Clear 82, Estimated GFR 93, Est GFR ( Amer) 112, Glucose 143 H, Calcium 9.1, Total Bilirubin 1.2, AST 21, ALT 18, Alkaline Phosphatase 90, C-Reactive Protein 37.1 H, Total Protein 7.7, Albumin 4.2, Globulin 3.5 H, Albumin/Globulin Ratio 1.2 05/09/25 18:55: Lactate 1.4 05/10/25 05:02: POC Glucose 98 05/10/25 05:11: WBC 18.1 H, RBC 4.75, Hgb 12.6 L, Hct 40.1 L, MCV 84.4, MCH 26.5 L, MCHC 31.4 L, RDW 17.9 H, Plt Count 500 H, MPV 9.4, Neut % (Auto) 79.1, Lymph % (Auto) 7.3 L, [place] % (Auto) 11.0 H, Eos % (Auto) 0.5, Baso % (Auto) 0.3, Neut # (Auto) 14.3 H, Lymph # (Auto) 1.3, [place] # (Auto) 2.0 H, Eos # (Auto) 0.1, Baso # (Auto) 0.1, Sodium 133 L, Potassium 4.4, Chloride 95 L, Carbon Dioxide 30, Anion Gap 12.4, BUN 14, Creatinine 0.80, Estimated Creat Clear 77, Estimated GFR 93, Est GFR ( Amer) 112, Glucose 103 H D, Calcium 8.5, Procalcitonin 0.174 Medical History: Medical History (Updated 05/09/25 @ 22:42 by Gustavo Wright APRN) Renal cyst Hyperlipidemia Skin cancer Rheumatoid arthritis Diabetes mellitus, type 2 Diplopia Hypertension Night sweats Back pain Aortic valve sclerosis Diastolic dysfunction Abnormal electrocardiogram [ECG] [EKG] Atrial fibrillation Melanoma Diplopia Assessment and Plan Assessment and plan all Dx Assessment and Plan for all problems:: Pharmacokinetic dosing service Objective: Patient: Floor: Age: 84 yo Serum creatinine: 0.80 mg/dL Height: 70.1 Inches Weight (kg): 95.3 Assessment: IBW (kg): 73.23 Dosing wt(kg): 95.3 Estimated Creatinine clearance (ml/min): 73.7 CRCL method: Cockcroft and Gault using ibw(default). Drug selected: Vancomycin Loading dose (mg): Vd (liters): 76.2 (factor used: 0.8 L/kg) [place] (hr-1): 0.066 Half life (hrs): 10.50 CLvanco=?? 5.029 L/hr Recommended dose: 1250 mg Interval: 12 hrs Infusion time (hrs): 2.0 Predicted peak (mcg/mL): 28.1 Predicted trough (mcg/mL): 14.52 Total body weight is being used for vancomycin dosing. Recommendations: Give Vancomycin 1250 mg q 12 hrs with an expected Cpeak of 28.1 mcg/ml and an expected Ctrough of 14.52 mcg/ml AUC 0-24 /NARA Data: NARA 0.5 mcg/mL:?? AUC/NARA:? 994.2 NARA 1.0 mcg/mL:?? AUC/NARA:? 497.1 --------- NARA 1.5 mcg/mL:?? AUC/NARA:? 331.4 NARA 2.0 mcg/mL:?? AUC/NARA:? 248.6 Thank you for the consult, will continue to follow. -RICO DIXON, ROSANNED
[2025-05-10] MEDS: HYDROMORPHONE 2MG/ML SYRINGE 1 MG IV (08:02)
[2025-05-10] MEDS: VANCOMYCIN/WATER FOR INJ (PEG) 1.25 GM/250 ML PIGGYBACK IV ×2 (08:06→20:07)
--- NOTE | 2025-05-10 08:21 | SW/DCPLANNER ---
Addendum entered by Mar Goss 05/10/25 09:19: Updated patient information faxed to [facility]. Original Note: Patient currently resides at [facility] level of care. Patient and daughter confirmed plan is to return to [facility] once medically stable for discharge. Discharge date is unknown at this time. CM will continue to follow up.
--- NOTE | 2025-05-10 08:44 | XR_ITS ---
FINAL REPORT CLINICAL HISTORY: sepsis workup COMPARISON: 03/02/2025 FINDINGS: No acute pulmonary opacity is present. There is no evidence of effusion or pneumothorax. Mediastinum is unremarkable. Heart size is normal. IMPRESSION: No acute abnormality. Reviewed, Interpreted and Dictated by Sol Kaye MD Transcribed by Ines Reina Authenticated and [facility]
--- NOTE | 2025-05-10 09:00 | MR_ITS ---
FINAL REPORT TECHNIQUE: Multiplanar MR imaging with and without intravenous contrast. CLINICAL HISTORY: left knee pain, swelling around patella COMPARISON: None FINDINGS: MRI LEFT KNEE: Articular cartilage: There is moderate to severe osteoarthritic change. Marrow signal: There is a small benign bone cyst in the posterior medial femoral condyle. No acute fracture is identified. The previously described prior fracture is assumed chronic without bone marrow edema. Joint fluid: There is an extremely large, complex joint effusion, with inhomogeneous fluid that is likely proteinaceous, with hemarthrosis, or infection. There are no MR findings of PVNS. There is diffuse synovial enhancement compatible with synovitis. A moderate size Newman's cyst is present. There are a few small air bubbles in the suprapatellar bursa, are reduced in quantity when compared to the recent CT examination. Menisci: Unremarkable Ligaments: Unremarkable Tendons: There is tendinosis of the patellar tendon and quadriceps tendon. IMPRESSION: 1. Large complex effusion which could represent blood or infection or other proteinaceous fluid related to her lung synovitis. 2. Moderate degenerative changes without acute bony abnormality. Reviewed, Interpreted and Dictated by Sol Kaye MD Transcribed by Hawa Diallo Authenticated and [facility]
--- NOTE | 2025-05-10 09:23 | HMH.PTEV ---
Physical Therapy Evaluation Rehab PT IP Evaluation Start: 05/09/25 23:12 Freq: ONCE Status: Active Protocol: Document 05/10/25 09:16 OPAL (Rec: 05/10/25 09:23 OPAL [id number]) Subjective/History History History Per H&P: This is a 84-year-old male who has past medical history significant for renal cyst, hyperlipidemia, skin cancer, rheumatoid arthritis, diabetes, diplopia, hypertension, night sweats, aortic valve sclerosis, diastolic dysfunction, atrial fibrillation, melena, and diplopia who presents with a chief complaint of left knee pain concerning for septic joint. Due to patient's symptoms, he presented to the emergency room for evaluation. While in the emergency room, ER provider attempted arthrocentesis of left knee, but was unable to obtain significant fluid. CT scan of the knee revealed a minimally displaced lateral tibial plateau injury realities with approximately 7.8 mm of depression at the articular surface of intermediate chronicity, osteochondral depression fracture of the lateral facet of the femoral trochlea with 5.4 mm of depression of intermediate chronicity, moderate volume suprapatellar effusion with complex attenuation in the synovial enhancement with interval air densities which could represent infectious synovitis. This case was discussed with the on-call orthopedic surgeon who did not believe patient had an acute infection. However, due to unrelieved pain, patient is being admitted for further management. During my evaluation of the patient, patient states his left knee pain started last night. He was recently seen by the orthopedic team who performed a cortisone injection to the right knee and he is scheduled for a cortisone injection to his left knee. Review of patient's medication shows he is currently prescribed prednisone and methotrexate. When asked, patient states he is taking this medication for rheumatoid arthritis. He states they recently increased his prednisone from 2 mg daily to 10 mg daily. He is currently denying any trauma to the left knee, chest pain, lightheadedness, dizziness, fever, chills, rigors , drainage from the knee, nausea, vomiting, or diarrhea . Additional pertinent vitals obtained included white blood cell count of 17.5, hemoglobin 13.3, hematocrit 41.1, platelet count of 628, neutrophils 83.1%, INR 1. 17, sodium 131, chloride of 94, blood glucose 443, and C-reactive protein at 37.1 Subjective Subjective [facility]. Pt normally ambulates using a RW but has not been able to ambulate in ~2 days d/t severe L knee pain. [facility] How much help from another person do you currently need... Turning from your A lot back to your side while in a flat bed without using bedrails? Moving from lying on A lot back to sitting on the side of a flat bed without using bedrails? Moving to and from a A lot bed to a chair ( including a wheelchair)? Standing up from a A lot chair using your arms? (e.g., wheelchair, bedside chair) Walking in hospital A lot room? Climbing 3-5 steps Total with a railing? Mobility Score 11 Mobility Level [facility] Mobility 4 Move to chair/commode Mobility Calculator Rehab PT IP Eval Objective Appearance Patient Behavior Appropriate,Cooperative Patient Orientation Person,Place Difficulty following none instructions Speech Pattern Clear Ambulation Patient Able to No Ambulate Balance Ability to Arise Able, uses arms to help Sitting Balance Steady, safe Standing Balance Unsteady Transfers Bed Transfer Ability Moderate x 1 (50% assist) Rehab PT IP prob,goals,plan Problems Date of Evaluation: 05/10/25 PT IP Problems Bed Mobility,Transfers,Gait,Balance Rehab Potential Rehab Potential Good Plan PT Intervention Plan Bed Mobility,Transfers,Gait,Balance,Self care,Safety, Therapeutic Exercise Other Intervention 1-2 times Plan PT Plan Frequency Daily Duration LOS Discharge Goals Bed Transfer Ability Minimal x 1 (25% assist) Sit to Stand Chair Minimal x 1 (25% assist) Transfer Ability Discharge Plan PT Discharge Plan Pt most appropriate to return to inpatient rehabilitation once deemed medically appropriate for d/ c from [facility]. Pt mostly limited by L knee pain and was not able to complete OOB activity. Pt would benefit from skilled acute care PT while at [facility] to address deficits and prevent further functional decline. Eval Complexity Eval Charge Codes 70166 - Moderate Complexity PHYSICIAN CERTIFICATION: I certify the specified therapy services for Mack Bower are required, authorized, and reviewed every 30 days.
--- NOTE | 2025-05-10 09:54 | HMH.OTEV ---
OT Evaluation Rehab OT IP Evaluation Start: 05/09/25 21:42 Freq: ONCE Status: Active Protocol: Document 05/10/25 09:49 [facility] (Rec: 05/10/25 09:53 [facility] [id number]) Rehab OT IP Assessment Subjective History Pt oriented x 2 on arrival. Pt agreeable to engage in therapy evaluation. Pt admitted 05/09/25 due to left knee pain. History and physical: This is a 84-year-old male who has past medical history significant for renal cyst, hyperlipidemia, skin cancer, rheumatoid arthritis, diabetes, diplopia, hypertension, night sweats, aortic valve sclerosis, diastolic dysfunction, atrial fibrillation, melena, and diplopia who presents with a chief complaint of left knee pain concerning for septic joint. Due to patient's symptoms, he presented to the emergency room for evaluation. While in the emergency room, ER provider attempted arthrocentesis of left knee, but was unable to obtain significant fluid. CT scan of the knee revealed a minimally displaced lateral tibial plateau injury realities with approximately 7.8 mm of depression at the articular surface of intermediate chronicity, osteochondral depression fracture of the lateral facet of the femoral trochlea with 5.4 mm of depression of intermediate chronicity, moderate volume suprapatellar effusion with complex attenuation in the synovial enhancement with interval air densities which could represent infectious synovitis. This case was discussed with the on-call orthopedic surgeon who did not believe patient had an acute infection. However, due to unrelieved pain, patient is being admitted for further management. Subjective Prior to being in the hospital, pt was at [facility]. Pt claims he was independent with all ADLs at [facility]. He also claims he is usually able to transfer himself using rolling walker, but does use a wheelchair for longer distances. Pt is dependent upon staff for completion of all IADLs. Objective Patient Orientation Person,Birthday Right Upper WFL Extremity Gross ROM Left Upper Extremity WFL Gross ROM Bed Mobility bed mobility-scooting,bed mobility - rolling Assist Level Minimal x 1 (25% assist) Upper Body Dressing Minimal Assistance Ability Rehab OT IP prob,goals,plan Problems Date of Evaluation: 05/10/25 OT IP Problems Bed Mobility,Transfers,Balance,Self care,Safety Rehab Potential Rehab Potential Good Equipment Needs Assistive Devices Rolling / Wheeled Walker Plan OT intervention Plan Bed Mobility,Transfers,Balance,Self care,Safety, Therapeutic Exercise OT Plan Frequency Daily Duration LOS Discharge Goals Bed Mobility Ability Standby Assistance Sit to Stand Chair Contact Guard/Hand Hold,Minimal x 1 (25% assist) Transfer Ability Chair Transfer Contact Guard/Hand Hold,Minimal x 1 (25% assist) Ability Chair Transfer Sit to/from Ambulatory Technique Chair Transfer Rolling Walker Assistive Devices Lower Body Dressing Minimal Assistance Ability Upper Body Dressing Contact Guard Ability Performing Toilet Contact Guard Hygiene Ability Overall Commode/ Standby Assistance Toilet Transfer Ability Commode/Toilet Sit to/from Ambulatory Transfer Technique Discharge Plan OT Discharge Plan Pt will continue to be seen for OT services while at [facility]. Pt would benefit most from short term rehab once he returns back to SNF. Continued skilled therapy is important in order for patient to improve strength, safety, endurance, ADL independence, and functional transfers to reach PLOF. Eval Complexity Eval Charge Codes 19232 - Moderate Complexity PHYSICIAN CERTIFICATION: I certify the specified therapy services for Mack Wilson Sathish are required, authorized, and reviewed every 30 days.
[2025-05-10] MEDS: POLYETHYLENE GLYCOL 3350 17 GM PACKET PO (10:15)
[2025-05-10 10:38] LABS: C-Reactive Protein 83.0 mg/L (0-4)
[2025-05-10 11:00] LABS: Uric Acid 2.1 mg/dl (3.5-8.5)
[2025-05-10 11:10] LABS: Hypochromasia 1+; Ovalocytes 1+; Polychromasia 1+; Total Cells Counted 100
[2025-05-10] MEDS: KETOROLAC 30MG/ML VIAL 30 MG IV (11:33)
[2025-05-10] MEDS: humaLOG 100 UNITS/ML 10ML VIAL (SSI) SUBCUT ×3 (11:38→20:07)
[2025-05-10] MEDS: GADOTERIDOL INJ 20ML SYRINGE 20 ML IV (12:41)
[2025-05-10 16:11] LABS: POC Glucose,Bedside 170 gm/dL (70-110)
[2025-05-10 16:41] LABS: Microscopic, Urine URINE MICROSCOPIC (MICROSCOPIC)
--- NOTE | 2025-05-10 16:45 | PC.NURSE ---
REPORT GIVEN TO SARAH GORDILLO
[2025-05-10 16:49] LABS: POC Glucose,Bedside 233 gm/dL (70-110)
[2025-05-10 17:38] LABS: Bilirubin,Urine Negative (Negative); Color,Urine YELLOW (Yellow); Glucose,Urine (UA) 2+ (Negative); Ketones,Urine TRACE (Negative); Leukocyte Esterase,Urine Negative (Negative); PH,Urine 6.0 (5.0-8.5); Protein,Urine Negative (Negative); Specific Gravity, Urine 1.010 (1.005-1.030); Urobilinogen,Urine 0.2 EU/dl (0.2)
[2025-05-10 18:13] LABS: Bacteria,Urine 2+ /lpf; Squamous Epithelial Cell,Urine Occasional #/hpf (0-5); WBC,Urine Occasional #/hpf (0-3)
[2025-05-10 19:52] LABS: POC Glucose,Bedside 233 gm/dL (70-110)
--- NOTE | 2025-05-10 21:24 | EXP.PN ---
Subjective *Date: 05/10/25 *Time: 22:28 Interval history: Patient continues to have left knee swelling, pain that is unchanged from yesterday. Toradol is helping with pain. Pending transfer to for suspected septic joint. Exam Data for Last 24 hours Vital signs and Labs for Last 24 Hours: Temp Pulse Resp BP Pulse Ox O2 Del Method O2 Flow Rate 98 F 92 H 18 135/86 99 Nasal Cannula 2 05/10/25 19:54 05/10/25 19:54 05/10/25 19:54 05/10/25 19:54 05/10/25 19:54 05/10/25 20:14 05/10/25 20:14 Laboratory Results - last 24 hr 05/10/25 05:02: POC Glucose 98 05/10/25 05:11: WBC 18.1 H, RBC 4.75, Hgb 12.6 L, Hct 40.1 L, MCV 84.4, MCH 26.5 L, MCHC 31.4 L, RDW 17.9 H, Plt Count 500 H, MPV 9.4, Neut % (Auto) 79.1, Lymph % (Auto) 7.3 L, [place] % (Auto) 11.0 H, Eos % (Auto) 0.5, Baso % (Auto) 0.3, Neut # (Auto) 14.3 H, Lymph # (Auto) 1.3, [place] # (Auto) 2.0 H, Eos # (Auto) 0.1, Baso # (Auto) 0.1, Total Counted 100, Neutrophils % (Manual) 76, Lymphocytes % (Manual) 11, Monocytes % (Manual) 12 H, Eosinophils % (Manual) 1, Platelet Estimate Slight increase, Polychromasia 1+, Hypochromasia 1+, Ovalocytes 1+, Sodium 133 L, Potassium 4.4, Chloride 95 L, Carbon Dioxide 30, Anion Gap 12.4, BUN 14, Creatinine 0.80, Estimated Creat Clear 77, Estimated GFR 93, Est GFR ( Amer) 112, Glucose 103 H D, Uric Acid 2.1 L, Calcium 8.5, C-Reactive Protein 83.0 H D, Procalcitonin 0.174 05/10/25 11:35: POC Glucose 170 H 05/10/25 16:21: POC Glucose 233 H 05/10/25 16:37: Urine Color Yellow, Urine Appearance Clear, Urine pH 6.0, Ur Specific [place] 1.010, Urine Protein Negative, Urine Glucose (UA) 2+, Urine Ketones Trace, Urine Blood Trace-l, Urine Nitrate Negative, Urine Bilirubin Negative, Urine Urobilinogen 0.2, Ur Leukocyte Esterase Negative, Urine RBC 3-5, Urine WBC Occasional, Ur Squamous Epith Cells Occasional, Urine Bacteria 2+ 05/10/25 19:44: POC Glucose 233 H I & O for Last 24 hours: Intake & Output 05/07/25 05/08/25 05/09/25 05/10/25 23:59 23:59 23:59 23:59 Intake Total 1920 / 1920 Output Total 650 / 650 Balance 1270 / 1270 Weight 94.937 kg 95.3 kg Constitutional Constitutional: no acute distress *Routine HEENT Exam Head: Present normocephalic Eye: Present EOMI and PERRL ENT: Present mucous membranes moist *Routine Neck Exam Neck: Present supple; Absent lymphadenopathy *Routine Respiratory Exam Respiratory: Present CTA bilaterally *Routine Cardiovascular Exam Cardiovascular: Present RRR *Routine Abdominal Exam Abdominal: Present soft and normoactive bowel sounds; Absent tenderness *Routine Extremities Exam Extremities: Absent cyanosis, clubbing or edema Comments: Left knee swollen, tender, limited range of motion due to pain and swelling. No overlying cellulitis. *Routine Skin Exam Skin: Present warm; Absent rash *Routine Neurological Exam Neurological: Present alert and oriented X3 Assessment and Plan *Assessment and plan (1) Effusion of knee joint, left: Status: Acute Category: Medical Code(s): M25.462 - Effusion, left knee (2) Knee pain: Status: Acute Qualifiers: Chronicity: acute Laterality: right Qualified Code(s): M25.561 - Pain in right knee Category: Medical Code(s): M25.569 - Pain in unspecified knee Plan Mack Duran is a 84-year-old male who presented with acute 2-day onset of left knee pain, swelling, pain with weightbearing and was admitted for further evaluation of left knee effusion. Left knee effusion Left knee pain #Suspected left knee septic joint --Differential diagnosis septic joint versus rheumatoid arthritis flare - Will empirically treat with 3.375 g of Zosyn IV every 6 hours and 1 g vancomycin IV twice daily pharmacy to dose-will de-escalate antibiotics as deemed - Left knee MRI today shows large complex effusion concerning for infection, hemorrhage, versus other. - Aspiration of the knee did not revealed any fluid because synovial fluid was viscous ? CRP up to 83 today and WBC still at 18 (though could be steroid effect), patient continues to have significant swelling and pain with range of motion. Unable to rule out septic joint. ? For this reason, I reached out to multiple facilities with orthopedic surgery. has accepted, currently on wait list. currently at capacity. [facility], called [place] but unable to take inpatient transfers after 4 PM. Will try again tomorrow. Rheumatoid arthritis Immunocompromise - Patient is currently prescribed 10 mg, will continue for now. Started IV Toradol 30 mg every 6 hours as needed. -Hold methotrexate for now in the setting of suspected septic joint. #Type 2 diabetes ? Hemoglobin A1c 6.5% in February 2025. Follow-up repeat A1c. ? LDSSI, ACHS glucose checks. ? Continue home empagliflozin, linagliptin. #A-fib ? Currently rate controlled. ? Continue home verapamil 240 mg twice daily, Coreg. Hold home Eliquis for possible knee washout. #CAD ? Hold home aspirin due to his possible knee washout.. #HFpEF ? Currently euvolemic. Continue home Bumex. #Hypertension ? Hold home BP meds, BP stable at this time. #BPH ? Continue home doxazosin.
[2025-05-10] MEDS: 0.9 % SODIUM CHLORIDE 1000ML 1,000 ML 50 ML IV (21:59)
[2025-05-10] MEDS: BUMETANIDE 1 MG TABLET 2 MG PO (22:58)
[2025-05-11 04:00] VITALS: BP 175/98; PULSE 85; RESP 16; TEMP 36.5; O2SAT 99; BMI 30.9
[2025-05-11] MEDS: humaLOG 100 UNITS/ML 10ML VIAL (SSI) SUBCUT ×3 (05:30→16:28)
[2025-05-11] MEDS: PIPERACILLIN/TAZO 3.375 GM in 0.9 % SODIUM CHLORIDE 50 ML IV ×3 (05:31→16:27)
[2025-05-11] MEDS: KETOROLAC 30MG/ML VIAL 30 MG IV ×2 (05:33→13:48)
[2025-05-11 05:36] LABS: POC Glucose,Bedside 198 gm/dL (70-110)
[2025-05-11 06:10] LABS: Hematocrit 35.7 % (42.0-52.0); Hemoglobin 11.4 g/dL (14.1-18.0); Immature Granulocytes % 1.2 %; Mean Corpuscular HGB Conc 31.9 g/dL (31.8-35.4); Mean Corpuscular Hemoglobin 26.9 pg (27.0-31.2); Mean Corpuscular Volume 84.2 fl (80-94); Nucleated Red Blood Cells % 0 %; Platelet Count 428 K/mm3 (142-424); Red Blood Count 4.24 M/mm3 (4.60-6.20); Red Cell Distribution Width-SD 53.5 fL; White Blood Count 22.0 K/mm3 (4.8-10.8)
[2025-05-11 06:19] LABS: Chloride 99 mmol/L (98-107)
[2025-05-11 06:20] LABS: Potassium 3.4 mmoL/L (3.5-5.1); Sodium 134 mmol/L (136-145)
[2025-05-11 06:22] LABS: Blood Urea Nitrogen 18 mg/dl (9-20); Creatinine Clearance Estimated 79 mL/min (50-200); Creatinine,Serum 0.90 mg/dl (0.66-1.25); Estimated Glomerular Filt Rate 81 ml/min (>60); GFR (African American) 98 ML/MIN (>60)
[2025-05-11 06:23] LABS: Anion Gap 8.4 mEq/L (5-15); Calcium 8.2 mg/dl (8.4-10.2); Carbon Dioxide 30 mmol/L (22.0-30.0); Glucose 124 mg/dl (74-100)
[2025-05-11 06:26] LABS: Hemoglobin A1C 6.0 % (4.0-6.0)
[2025-05-11 07:20] LABS: Total Cells Counted 100
[2025-05-11 07:21] LABS: RBC Morphology Normal
[2025-05-11] MEDS: HYDROCODONE/APAP 5/325 MG TABLET 1 TAB PO ×3 (07:41→19:25)
[2025-05-11 08:00] VITALS: BP 155/90; PULSE 97; RESP 16; TEMP 36.6; O2SAT 97
[2025-05-11] MEDS: BUMETANIDE 1 MG TABLET 2 MG PO (09:28)
[2025-05-11] MEDS: HEPARIN SODIUM 5,000 UNIT/ML VIAL 5000 UNIT SUBCUT ×2 (09:29→14:19)
[2025-05-11] MEDS: POLYETHYLENE GLYCOL 3350 17 GM PACKET PO (09:29)
[2025-05-11] MEDS: VANCOMYCIN/WATER FOR INJ (PEG) 1.25 GM/250 ML PIGGYBACK IV (09:39)
[2025-05-11 11:18] LABS: C-Reactive Protein 101.2 mg/L (0-4)
[2025-05-11] MEDS: VITAMIN B-12 1,000 MCG 1ML VIAL 1000 MCG IM (11:52)
[2025-05-11 12:05] LABS: POC Glucose,Bedside 178 gm/dL (70-110)
[2025-05-11 12:41] VITALS: BP 134/51; PULSE 68; RESP 18; TEMP 36.4; O2SAT 99
--- NOTE | 2025-05-11 14:13 | EXP.DC.SUM ---
General Admission date:: 05/09/25 Discharge date: 05/11/25 HPI HPI HPI: This is a 84-year-old male who has past medical history significant for renal cyst, hyperlipidemia, skin cancer, rheumatoid arthritis, diabetes, diplopia, hypertension, night sweats, aortic valve sclerosis, diastolic dysfunction, atrial fibrillation, melena, and diplopia who presents with a chief complaint of left knee pain concerning for septic joint. Due to patient's symptoms, he presented to the emergency room for evaluation. While in the emergency room, ER provider attempted arthrocentesis of left knee, but was unable to obtain significant fluid. CT scan of the knee revealed a minimally displaced lateral tibial plateau injury realities with approximately 7.8 mm of depression at the articular surface of intermediate chronicity, osteochondral depression fracture of the lateral facet of the femoral trochlea with 5.4 mm of depression of intermediate chronicity, moderate volume suprapatellar effusion with complex attenuation in the synovial enhancement with interval air densities which could represent infectious synovitis. This case was discussed with the on-call orthopedic surgeon who did not believe patient had an acute infection. However, due to unrelieved pain, patient is being admitted for further management. During my evaluation of the patient, patient states his left knee pain started last night. He was recently seen by the orthopedic team who performed a cortisone injection to the right knee and he is scheduled for a cortisone injection to his left knee. Review of patient's medication shows he is currently prescribed prednisone and methotrexate. When asked, patient states he is taking this medication for rheumatoid arthritis. He states they recently increased his prednisone from 2 mg daily to 10 mg daily. He is currently denying any trauma to the left knee, chest pain, lightheadedness, dizziness, fever, chills, rigors, drainage from the knee, nausea, vomiting, or diarrhea. Additional pertinent vitals obtained included white blood cell count of 17.5, hemoglobin 13.3, hematocrit 41.1, platelet count of 628, neutrophils 83.1%, INR 1.17, sodium 131, chloride of 94, blood glucose 443, and C-reactive protein at 37.1 Hospital Course Hospital Course Hospital Course: Mack Bower is an 84-year-old male who presented with acute 2-day onset of left knee pain, swelling, pain with weightbearing and was admitted for further evaluation of left knee effusion. Unsuccessful attempts made to aspirate effusion. MRI was obtained showing concern for hemarthrosis, complicated effusion, septic effusion. As we do not have orthopedics available at this time to definitively treat and manage knee along with definitive diagnosis, decision made to transfer to higher level of care. [facility] contacted, graciously accepted for further management. Patient currently on Zosyn and vancomycin empirically for treatment. White count remains elevated and inflammatory markers remain elevated. Hemodynamically stable at this time however. Will discharge to [facility] for further management. Problems addressed as follows: Left knee effusion Left knee pain #Suspected left knee septic joint --Differential diagnosis septic joint, hemarthrosis, rheumatoid arthritis flare. Empirically treated with 3.375 g of Zosyn IV every 6 hours and 1 g vancomycin IV twice daily. White count remained elevated at 22 on day of discharge. ESR in the 70s, CRP 101, uric acid 2.1. Left knee MRI obtained showing large complex effusion concerning for infection, hemorrhage, inflammation. Remarked on fluid appearing proteinaceous. Formal read as follows: Marrow signal: There is a small benign bone cyst in the posterior medial femoral condyle. No acute fracture is identified. The previously described prior fracture is assumed chronic without bone marrow edema. Joint fluid: There is an extremely large, complex joint effusion, with inhomogeneous fluid that is likely proteinaceous, with hemarthrosis, or infection. - Transferred to higher level of care for definitive diagnosis and treatment Rheumatoid arthritis Immunocompromise - Patient is currently prescribed 10 mg, will continue for now. Initiated on Toradol 30 mg IV every 6 hours as needed along with hydrocodone and Dilaudid. Holding his methotrexate due to suspicion of infection #Type 2 diabetes: Hemoglobin A1c 6.0 this visit. Treated with sliding scale insulin and fingersticks ACHS. Appears to be well-controlled on home empagliflozin and linagliptin #A-fib: Currently rate controlled. Continue home verapamil 240 mg twice daily, Coreg. Hold home Eliquis for possible knee washout. #CAD: Hold home aspirin due to his possible knee washout.. #HFpEF: Currently euvolemic. Continue home Bumex. #Hypertension: Hold home BP meds, BP stable at this time. #BPH: Continue home doxazosin. Total time spent on discharge 42 minutes in counseling, documentation, chart review, and direct care with patient. Exam Data for Last 24 hours Vital signs and Labs for Last 24 Hours: Temp Pulse Resp BP Pulse Ox O2 Del Method O2 Flow Rate 97.5 F L 68 18 134/51 L 99 Nasal Cannula 2 05/11/25 12:41 05/11/25 12:41 05/11/25 12:41 05/11/25 12:41 05/11/25 12:41 05/11/25 13:00 05/11/25 13:00 Laboratory Results - last 24 hr 05/10/25 11:35: POC Glucose 170 H 05/10/25 16:21: POC Glucose 233 H 05/10/25 16:37: Urine Color Yellow, Urine Appearance Clear, Urine pH 6.0, Ur Specific Thayer 1.010, Urine Protein Negative, Urine Glucose (UA) 2+, Urine Ketones Trace, Urine Blood Trace-l, Urine Nitrate Negative, Urine Bilirubin Negative, Urine Urobilinogen 0.2, Ur Leukocyte Esterase Negative, Urine RBC 3-5, Urine WBC Occasional, Ur Squamous Epith Cells Occasional, Urine Bacteria 2+ 05/10/25 19:44: POC Glucose 233 H 05/11/25 05:29: POC Glucose 198 H 05/11/25 05:48: WBC 22.0 H*, RBC 4.24 L, Hgb 11.4 L, Hct 35.7 L, MCV 84.2, MCH 26.9 L, MCHC 31.9, RDW 18.2 H, Plt Count 428 H, MPV 9.4, Neut % (Auto) 81.8 H, Lymph % (Auto) 7.1 L, [place] % (Auto) 9.5 H, Eos % (Auto) 0.2, Baso % (Auto) 0.2, Neut # (Auto) 18.0 H, Lymph # (Auto) 1.6, [place] # (Auto) 2.1 H, Eos # (Auto) 0.1, Baso # (Auto) 0.0, Total Counted 100, Neutrophils % (Manual) 86 H, Lymphocytes % (Manual) 7 L, Monocytes % (Manual) 7, Nucleated RBCs 1, Platelet Estimate Normal, RBC Morphology Normal, ESR 45 H, Sodium 134 L, Potassium 3.4 L D, Chloride 99, Carbon Dioxide 30, Anion Gap 8.4, BUN 18 D, Creatinine 0.90, Estimated Creat Clear 79, Estimated GFR 81, Est GFR ( Amer) 98, Glucose 124 H, Hemoglobin A1c 6.0, Calcium 8.2 L, C-Reactive Protein 101.2 H 05/11/25 11:47: POC Glucose 178 H I & O for Last 24 hours: Intake & Output 05/08/25 05/09/25 05/10/25 05/11/25 23:59 23:59 23:59 23:59 Intake Total 3460 / 3460 1490 / 1490 Output Total 1475 / 1475 1025 / 1025 Balance 1984 465 / 465 Weight 94.937 kg 95.3 kg 97.885 kg Constitutional Constitutional: no acute distress, obese, chronically ill appearing and cooperative *Routine HEENT Exam Head: Present normocephalic Eye: Present EOMI and PERRL ENT: Present mucous membranes moist *Routine Neck Exam Neck: Present supple; Absent lymphadenopathy *Routine Respiratory Exam Respiratory: Present CTA bilaterally; Absent rhonchi, wheezes or crackles *Routine Cardiovascular Exam Cardiovascular: Present RRR *Routine Abdominal Exam Abdominal: Present soft and normoactive bowel sounds; Absent tenderness *Routine Rectal Exam Patient deferred: visual exam *Routine Exam Patient deferred: penile exam *Routine Extremities Exam Extremities: Absent cyanosis, clubbing or edema Comments: Left knee swollen, tender, limited range of motion due to pain and swelling. No overlying cellulitis. Quite tender to palpation in popliteal fossa *Routine Skin Exam Skin: Present warm; Absent rash Comments: Numerous scabbed lesions on extremities and face consistent with history of sun damage *Routine Neurological Exam Neurological: Present alert, oriented X3 and moving all extremities; Absent altered mental status Results Data Completed and Pending Labs on day of discharge: Labs from last 24 hours 05/11/25 05/11/25 05/11/25 11:47 05:48 05:29 WBC 22.0 H* RBC 4.24 L Hgb 11.4 L Hct 35.7 L MCV 84.2 MCH 26.9 L MCHC 31.9 RDW 18.2 H Plt Count 428 H MPV 9.4 Neut % (Auto) 81.8 H Lymph % (Auto) 7.1 L [place] % (Auto) 9.5 H Eos % (Auto) 0.2 Baso % (Auto) 0.2 Neut # (Auto) 18.0 H Lymph # (Auto) 1.6 [place] # (Auto) 2.1 H Eos # (Auto) 0.1 Baso # (Auto) 0.0 Total Counted 100 Neutrophils % (Manual) 86 H Lymphocytes % (Manual) 7 L Monocytes % (Manual) 7 Nucleated RBCs 1 Platelet Estimate Normal RBC Morphology Normal ESR 45 H Sodium 134 L Potassium 3.4 L D Chloride 99 Carbon Dioxide 30 Anion Gap 8.4 BUN 18 D Creatinine 0.90 Estimated Creat Clear 79 Estimated GFR 81 Est GFR ( Amer) 98 Glucose 124 H POC Glucose 178 H 198 H Hemoglobin A1c 6.0 Calcium 8.2 L C-Reactive Protein 101.2 H Urine Color Urine Appearance Urine pH Ur Specific Thayer Urine Protein Urine Glucose (UA) Urine Ketones Urine Blood Urine Nitrate Urine Bilirubin Urine Urobilinogen Ur Leukocyte Esterase Urine RBC Urine WBC Ur Squamous Epith Cells Urine Bacteria 05/10/25 05/10/25 05/10/25 19:44 16:37 16:21 WBC RBC Hgb Hct MCV MCH MCHC RDW Plt Count MPV Neut % (Auto) Lymph % (Auto) [place] % (Auto) Eos % (Auto) Baso % (Auto) Neut # (Auto) Lymph # (Auto) [place] # (Auto) Eos # (Auto) Baso # (Auto) Total Counted Neutrophils % (Manual) Lymphocytes % (Manual) Monocytes % (Manual) Nucleated RBCs Platelet Estimate RBC Morphology ESR Sodium Potassium Chloride Carbon Dioxide Anion Gap BUN Creatinine Estimated Creat Clear Estimated GFR Est GFR ( Amer) Glucose POC Glucose 233 H 233 H Hemoglobin A1c Calcium C-Reactive Protein Urine Color Yellow Urine Appearance Clear Urine pH 6.0 Ur Specific Thayer 1.010 Urine Protein Negative Urine Glucose (UA) 2+ Urine Ketones Trace Urine Blood Trace-l Urine Nitrate Negative Urine Bilirubin Negative Urine Urobilinogen 0.2 Ur Leukocyte Esterase Negative Urine RBC 3-5 Urine WBC Occasional Ur Squamous Epith Cells Occasional Urine Bacteria 2+ 05/10/25 11:35 WBC RBC Hgb Hct MCV MCH MCHC RDW Plt Count MPV Neut % (Auto) Lymph % (Auto) [place] % (Auto) Eos % (Auto) Baso % (Auto) Neut # (Auto) Lymph # (Auto) [place] # (Auto) Eos # (Auto) Baso # (Auto) Total Counted Neutrophils % (Manual) Lymphocytes % (Manual) Monocytes % (Manual) Nucleated RBCs Platelet Estimate RBC Morphology ESR Sodium Potassium Chloride Carbon Dioxide Anion Gap BUN Creatinine Estimated Creat Clear Estimated GFR Est GFR ( Amer) Glucose POC Glucose 170 H Hemoglobin A1c Calcium C-Reactive Protein Urine Color Urine Appearance Urine pH Ur Specific Thayer Urine Protein Urine Glucose (UA) Urine Ketones Urine Blood Urine Nitrate Urine Bilirubin Urine Urobilinogen Ur Leukocyte Esterase Urine RBC Urine WBC Ur Squamous Epith Cells Urine Bacteria DS: Diagnosis Discharge Diagnosis (1) Effusion of knee joint, left: Status: Acute Code(s): M25.462 - Effusion, left knee (2) Knee pain: Status: Acute Code(s): M25.569 - Pain in unspecified knee Qualifiers: Chronicity: acute Laterality: right Qualified Code(s): M25.561 - Pain in right knee (3) Leukocytosis: Status: Acute Code(s): D72.829 - Elevated white blood cell count, unspecified Qualifiers: Leukocytosis type: unspecified Qualified Code(s): D72.829 - Elevated white blood cell count, unspecified (4) 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: Status: Acute Code(s): C44.621 - Squamous cell carcinoma of skin of unspecified upper limb, including shoulder (5) Rheumatoid arthritis: Status: Chronic Code(s): M06.9 - Rheumatoid arthritis, unspecified (6) Type 2 diabetes mellitus with peripheral neuropathy: Status: Chronic Code(s): E11.42 - Type 2 diabetes mellitus with diabetic polyneuropathy (7) Obesity (BMI 30.0-34.9): Status: Chronic Code(s): E66.811 - Obesity, class 1 (8) Hyperlipidemia: Status: Chronic Code(s): E78.5 - Hyperlipidemia, unspecified Qualifiers: Hyperlipidemia type: mixed hyperlipidemia Qualified Code(s): E78.2 - Mixed hyperlipidemia (9) Hypertension: Status: Chronic Code(s): I10 - Essential (primary) hypertension Qualifiers: Hypertension type: renovascular hypertension Qualified Code(s): I15.0 - Renovascular hypertension (10) Atrial fibrillation: Status: Chronic Code(s): I48.91 - Unspecified atrial fibrillation Qualifiers: Atrial fibrillation type: unspecified Qualified Code(s): I48.91 - Unspecified atrial fibrillation Problem details: Paroxysmal atrial fibrillation Meds Home Medications and Allergies Home Medications ?Medication ?Instructions ?Recorded ?Confirmed ?Type naproxen sodium 220 mg tablet 220 mg PO BIDP PRN Mild Pain 09/24/24 10/22/25 History (Aleve) (Scale Score 1-4) prednisone 1 mg tablet 10 mg PO DAILY 04/11/24 05/09/25 History apixaban 5 mg tablet 5 mg PO BID 30 days #60 tabs 12/27/24 05/09/25 Rx Held on 05/11/25. Instructions: Due to possible washout/intervention on knee bumetanide 1 mg tablet 2 mg PO BID 03/02/25 05/10/25 History carvedilol 6.25 mg tablet (Coreg) 6.25 mg PO BIDWMEAL 03/02/25 05/10/25 History polyethylene glycol 3350 17 17 g PO DAILY 03/02/25 05/09/25 History gram/dose oral powder (Miralax) potassium chloride 20 mEq 20 meq PO DAILY 03/02/25 05/09/25 History tablet,extended release(part/cryst) pantoprazole 20 mg tablet,delayed 40 mg PO DAILY 05/03/25 05/09/25 History release tramadol 50 mg tablet 50 mg PO Q8HP PRN Moderate Pain 05/03/25 05/10/25 History (Scale Score 5-6) albuterol sulfate 90 mcg/actuation 2 inh inhalation DAILY 05/09/25 05/09/25 History aerosol inhaler aspirin 81 mg chewable tablet 81 mg PO DAILY 05/09/25 05/09/25 History Held on 05/11/25. Instructions: Due to possible washout/intervention on knee cyanocobalamin (vitamin B-12) 1,000 mcg IM WEEKLY 05/09/25 05/09/25 History 1,000 mcg/mL injection solution folic acid 1 mg tablet 1 mg PO DAILY 05/09/25 05/09/25 History hydrocodone 5 mg-acetaminophen 325 1 tab PO Q6HP PRN Severe Pain 05/09/25 05/10/25 History mg tablet (Scale Score 7-10) methotrexate sodium 2.5 mg tablet 20 mg PO WEEKLY 05/09/25 05/09/25 History valsartan 80 mg tablet 80 mg PO DAILY 05/09/25 05/09/25 History doxazosin 4 mg tablet 4 mg PO DAILY 05/10/25 05/10/25 History empagliflozin 25 mg-linagliptin 5 1 tab PO DAILY 05/10/25 05/10/25 History mg tablet (Glyxambi) pravastatin 40 mg tablet 40 mg PO DAILY 05/10/25 05/10/25 History verapamil 240 mg 24 hr 240 mg PO BID 05/10/25 05/10/25 History capsule,extended release Piperacillin/Tazo [Zosyn 3.375gm 100 mls/hr IV Q6H 05/11/25 Rx ADV] 3.375 gm ketorolac 30 mg/mL (1 mL) 30 mg IV Q6HP PRN Moderate To 05/11/25 Rx injection solution Severe Pain (4-10) #0 mL vancomycin 1.25 gram/250 mL in 1.25 g (250 mL) IV Q12H #0 mL 05/11/25 Rx diluent combination IV piggyback New Prescriptions to Start Prescriptions: Piperacillin/Tazo [Zosyn 3.375gm ADV] 3.375 gm 0.9 % Sodium Chloride [Sod Chloride 0.9% 50mL Adv.] 50 ml 100 mls/hr IV Q6H Allergies Allergy/AdvReac Type Severity Reaction Status Date / Time amlodipine Allergy Mild edema Verified 05/03/25 10:00 Discharge Plan Disposition Patient Disposition: Xfer Short-Term Hosp Condition: Fair Follow up Plan Prescriptions/Medication Reconciliation: New ketorolac 30 mg/mL (1 mL) Solution 30 mg IV Q6HP PRN (Reason: Moderate To Severe Pain (4-10)) Qty: 0 0RF vancomycin-diluent combo no.1 1.25 gram/250 mL Piggyback 1.25 g IV Q12H Qty: 0 0RF Piperacillin/Tazo [Zosyn 3.375gm ADV] 3.375 GM 0.9 % Sodium Chloride [Sod Chloride 0.9% 50mL Adv.] 50 ML 100 mls/hr IV Q6H Ordered By: lAverto Harper MD Last Taken: 05/11/25 11:55 100 mls/hr Continued tramadol 50 mg tablet 50 mg PO Q8HP PRN (Reason: Moderate Pain (Scale Score 5-6)) pantoprazole 20 mg tablet,delayed release (DR/EC) 40 mg PO DAILY naproxen sodium [Aleve] 220 mg tablet 220 mg PO BIDP PRN (Reason: Mild Pain (Scale Score 1-4)) prednisone 1 mg tablet 10 mg PO DAILY Patient Comments: TAKE 2 TABLETS BY MOUTH ONCE DAILY hydrocodone-acetaminophen 5-325 mg tablet 1 tab PO Q6HP PRN (Reason: Severe Pain (Scale Score 7-10)) Patient Comments: one tablet, oral, Every 6 Hours - PRN, pain valsartan 80 mg Tablet 80 mg PO DAILY methotrexate sodium 2.5 mg tablet 20 mg PO WEEKLY Patient Comments: TAKE 8 TABLETS BY MOUTH ONCE A WEEK Rx Instructions: take on cyanocobalamin (vitamin B-12) 1,000 mcg/mL Solution 1,000 mcg IM WEEKLY Rx Instructions: on folic acid 1 mg tablet 1 mg PO DAILY Patient Comments: TAKE 1 TABLET BY MOUTH ONCE DAILY albuterol sulfate 90 mcg/actuation HFA aerosol inhaler 2 inh inhalation DAILY Glyxambi 25-5 mg tablet 1 tab PO DAILY Patient Comments: TAKE 1 TABLET BY MOUTH ONCE DAILY FOR DIABETES pravastatin 40 mg tablet 40 mg PO DAILY Patient Comments: TAKE 1 TABLET BY MOUTH ONCE DAILY FOR CHOLESTEROL doxazosin 4 mg tablet 4 mg PO DAILY Patient Comments: TAKE 1 TABLET BY MOUTH ONCE DAILY verapamil 240 mg capsule,ext rel. pellets 24 hr 240 mg PO BID Patient Comments: TAKE 1 CAPSULE BY MOUTH TWICE DAILY carvedilol [Coreg] 6.25 mg tablet 6.25 mg PO BIDWMEAL Rx Instructions: must administer with a meal/food potassium chloride 20 mEq tablet,ER particles/crystals 20 meq PO DAILY bumetanide 1 mg tablet 2 mg PO BID polyethylene glycol 3350 [Miralax] 17 gram/dose powder 17 g PO DAILY Rx Instructions: Take this medication if you have not had a bowel movement in 2 or more days. Held apixaban 5 mg tablet 5 mg PO BID 30 Days Qty: 60 5RF Hold Instructions: Due to possible washout/intervention on knee aspirin 81 mg Tablet,Chewable 81 mg PO DAILY Hold Instructions: Due to possible washout/intervention on knee Problem Reconciliation Problems Reviewed?: Yes Patient Discharge Instructions ACTIVITY: Continue current activity DIET: continue same diet Patient Instructions: Rheumatoid Arthritis (Alternative Therapy), DI for High Blood Pressure, DI for Joint Pain Print Language: Lithuanian Providers Primary Care Provider: Shahid Guthrie Admit Provider: Wilton Sanderson Attending Provider: Wilton Sanderson
[2025-05-11 16:00] VITALS: BP 82/47; PULSE 63; RESP 18; TEMP 36.6; O2SAT 98
[2025-05-11 16:24] LABS: POC Glucose,Bedside 153 gm/dL (70-110)
--- NOTE | 2025-05-11 16:32 | PC.NURSE ---
MD aware of low blood pressures, reevaluate patient's medications, hold bp medications per md
[2025-05-11 17:06] VITALS: BP 110/60
--- NOTE | 2025-05-11 19:30 | PC.NURSE ---
Pt leaving floor at 1930 with EMS
== END 2025-05-11 19:32 | disposition short-term general hospital (02) | DRG 516 ==
LOC: ER 21:22 → 2ND 21:27
PROVIDERS: Nurse Practitioner Family; Physician Assistant; Admitting Provider Student in an Organized Health Care Education/Training Program; Emergency Provider Student in an Organized Health Care Education/Training Program; PCP Internal Medicine; Visit Provider Student in an Organized Health Care Education/Training Program
DX: M00.9 Pyogenic arthritis, unspecified (principal); D68.9 Coagulation defect, unspecified; D84.9 Immunodeficiency, unspecified; I50.32 Chronic diastolic (congestive) heart failure; E87.1 Hypo-osmolality and hyponatremia; M25.462 Effusion, left knee; M06.9 Rheumatoid arthritis, unspecified; I25.10 Atherosclerotic heart disease of native coronary artery without angina pectoris; I11.0 Hypertensive heart disease with heart failure; N40.0 Benign prostatic hyperplasia without lower urinary tract symptoms; C44.621 Squamous cell carcinoma of skin of unspecified upper limb, including shoulder; E11.42 Type 2 diabetes mellitus with diabetic polyneuropathy; E66.811 Obesity, class 1; E78.2 Mixed hyperlipidemia; I15.0 Renovascular hypertension; I16.0 Hypertensive urgency; I48.0 Paroxysmal atrial fibrillation; D75.839 Thrombocytosis, unspecified; M17.0 Bilateral primary osteoarthritis of knee; Z87.891 Personal history of nicotine dependence; Z68.29 Body mass index [BMI] 29.0-29.9, adult; Z88.8 Allergy status to other drugs, medicaments and biological substances; Z79.01 Long term (current) use of anticoagulants; Z79.82 Long term (current) use of aspirin; Z79.52 Long term (current) use of systemic steroids; Z79.84 Long term (current) use of oral hypoglycemic drugs; Z79.899 Other long term (current) drug therapy
CPT/HCPCS: 36415; 71045; 73562; 73701; 73723; 80048; 80053; 81001; 82962; 83036; 83605; 84145; 84550; 85007; 85025; 85651; 86140; 87086; 97162; 97166; 97530; 99285; A9576; G0378; J1171; J1644; J1885; J2003; J2270; J2405; J2543; J3375; J3420; J7030; Q9967

== ENCOUNTER 2025-06-28 10:09 | Outpatient (CLI) | payer MEDICARE, BC, SELFPAY ==
--- NOTE | 2025-06-28 10:11 | XR_ITS ---
FINAL REPORT CLINICAL HISTORY: right shoulder pain FINDINGS: RIGHT SHOULDER Three views were obtained. There is no fracture or dislocation. There is advanced glenohumeral joint space narrowing and subchondral sclerosis and osteophyte formation. There are mild hypertrophic changes of the AC joint. No soft tissue abnormality is identified. IMPRESSION: Advanced hypertrophic changes of the glenohumeral joint. Reviewed, Interpreted and Dictated by Rene Lopez MD Transcribed by Ines Reina Authenticated and [facility]
== END 2025-06-28 23:59 ==
LOC: RAD 10:10
PROVIDERS: PCP Internal Medicine; Visit Provider Physician Assistant
DX: M19.011 Primary osteoarthritis, right shoulder (principal)
CPT/HCPCS: 73030